=== PATIENT | female | born 1930 | race Hispanic/Latino ===

== ENCOUNTER 2016-07-28 19:17 | Inpatient (IN) | payer MEDICARE, OTHER ==
[2016-07-28 19:26] VITALS: BMI 30.9
[2016-07-28] MEDS ORDERED: Albuterol-Ipratrop 3 mg / 0.5 (3 ml) UD ONE (19:28)
[2016-07-28] MEDS ORDERED: Albuterol-Ipratrop 3 mg / 0.5 (3 ml) UD IH STA (19:29)
[2016-07-28 19:38] LABS: ADD MANUAL DIFF? NO
[2016-07-28 19:47] LABS: BASO % 0.8 % (0.0-3.0); EOS # 0.1 (0.0-0.7); EOS % 0.7 % (1.5-5.0); GRAN # 9.48 (1.4-6.5); GRAN % 77.2 % (50.0-68.0); HEMATOCRIT 30.7 % (36.0-48.0); LYMPH # 1.7 (1.2-3.4); LYMPH % 13.4 % (22.0-35.0); MEAN CELL VOLUME 88.2 fL (80.0-105.0); MEAN CORPUSCULAR HEMOGLOBIN 27.6 pg (25.0-35.0); MEAN CORPUSCULAR HGB CONC 31.3 g/dl (31.0-37.0); MEAN PLATELET VOLUME 10.3 fl (7.0-11.0); MONO % 7.9 % (1.0-6.0); PLATELET COUNT 348 10^3/uL (120.0-450.0); RED CELL DISTRIBUTION WIDTH 18.2 % (11.5-14.5); WHITE BLOOD COUNT 12.3 10^3/ul (4.5-11.0)
[2016-07-28] MEDS ORDERED: Morphine 2 mg/ml ISec IVP STA (19:53)
--- NOTE | 2016-07-28 19:56 | ED PDOC ---
Arrival/HPI - General Chief Complaint: Shortness Of Breath Time Seen by Provider: 07/28/16 19:18 Historian: Patient - History of Present Illness Narrative History of Present Illness (Text): 07/28/16 19:50 Gama Knutson is an 85 year old female, whose past medical history includes chronic atrial fibrillation on Eliquis, hypertension, hyperlipidemia, CVA, and COPD, who presents to the Emergency department complaining of progressively worsening shortness of breath and swelling to bilateral lower extremities with redness for about one week. Patient states that she also experiences associated wheezing. Patient denies any fever, chills, chest pain, nausea, vomiting, diarrhea, urinary symptoms, back pain, neck pain, headache, dizziness, or any other complaints. PMD: None Time/Duration: 1 week Symptom Onset: Gradual Symptom Course: Worsening Severity Level: Mild Activities at Onset: Rest Context: Home Past Medical History - Provider Review Nursing Documentation Reviewed: Yes - Infectious Disease Hx of Infectious Diseases: None - Tetanus Immunization Tetanus Immunization: Unknown - Cardiac Hx Cardiac Disorders: Yes Hx Hypertension: Yes - Pulmonary Hx Chronic Obstructive Pulmonary Disease (COPD): Yes - Neurological HX Cerebrovascular Accident: Yes - HEENT Hx HEENT Disorder: No - Renal Hx Renal Disorder: No - Endocrine/Metabolic Hx Diabetes Mellitus Type 2: (patient denies) - Hematological/Oncological Hx Blood Disorders: Yes Hx AIDS: No Hx Anemia: Yes - Integumentary Hx Dermatological Disorder: No - Musculoskeletal/Rheumatological Hx Falls: Yes - Gastrointestinal Hx Gastrointestinal Disorders: No - Genitourinary/Gynecological Hx Genitourinary Disorders: Yes Hx Urinary Tract Infection: Yes - Psychiatric Hx Psychophysiologic Disorder: Yes Hx Anxiety: Yes Hx Substance Use: No - Past Surgical History Past Surgical History: Non-Contributing - Surgical History Hx Joint Replacement: Yes (right hip) - Anesthesia Hx Anesthesia: Yes Hx Anesthesia Reactions: No Hx Malignant Hyperthermia: No - Suicidal Assessment Feels Threatened In Home Enviroment: No Family/Social History - Physician Review Nursing Documentation Reviewed: Yes Family/Social History: No Known Family HX Smoking Status: Former Smoker Hx Alcohol Use: No Hx Substance Use: No Hx Substance Use Treatment: No Allergies/Home Meds Allergies/Adverse Reactions: Allergies No Known Allergies Allergy (Verified 07/28/16 19:26) Home Medications: Home Meds Medication Instructions Recorded Confirmed Apixaban [Eliquis] 2.5 mg PO DAILY 06/15/16 07/28/16 Fluticasone/Salmeterol 250/50 1 puff IH Q12 06/15/16 07/28/16 [Advair Diskus 250/50] Umeclidinium Brm/Vilanterol Tr 1 each IH DAILY 06/15/16 07/28/16 [Anoro Ellipta 62.5-25 Mcg INH] diltiaZEM CD [Cardizem CD] 180 mg PO DAILY 06/15/16 07/28/16 Review of Systems - Physician Review All systems were reviewed & negative as marked: Yes - Review of Systems Constitutional: absent: Fevers, Night Sweats Eyes: absent: Vision Changes ENT: absent: Hearing Changes Respiratory: SOB Cardiovascular: absent: Chest Pain Gastrointestinal: absent: Abdominal Pain Genitourinary Female: absent: Urine Output Changes Musculoskeletal: Other (redness and swelling to bilateral legs and feet). absent: Back Pain, Neck Pain Skin: absent: Rash Neurological: absent: Headache Endocrine: absent: Diaphoresis Hemo/Lymphatic: absent: Easy Bleeding Psychiatric: absent: Depression Physical Exam Vital Signs Reviewed: Yes Vital Signs Temp Pulse Resp BP Pulse Ox 07/28/16 21:11 111/76 07/28/16 19:30 20 97 07/28/16 19:26 98.7 F 93 H 32 H 140/75 98 Temperature: Afebrile Pulse: Tachycardic Respiratory Rate: Tachypneic Appearance: Positive for: Well-Appearing, Non-Toxic, Comfortable Pain Distress: None Mental Status: Positive for: Alert and Oriented X 3 - Systems Exam Head: Present: Atraumatic, Normocephalic Pupils: Present: PERRL Extroacular Muscles: Present: EOMI Conjunctiva: Present: Normal Mouth: Present: Moist Mucous Membranes Neck: Present: Normal Range of Motion Respiratory/Chest: Present: Wheezes (to bilateral bases), Rales (to bilateral bases) Cardiovascular: Present: Irregular Rhythm (A Fib - irregular regular) Abdomen: Present: Normal Bowel Sounds. No: Tenderness, Distention, Peritoneal Signs Back: Present: Normal Inspection Upper Extremity: Present: Normal Inspection. No: Cyanosis, Edema Lower Extremity: Present: Swelling, Erythema (Bilateral swelling to lower extermities with erythema ) Neurological: Present: GCS=15, CN II-XII Intact, Speech Normal Skin: Present: Warm, Dry, Normal Color. No: Rashes Psychiatric: Present: Alert, Oriented x 3, Normal Insight, Normal Concentration Medical Decision Making ED Course and Treatment: 07/28/16 20:01 Impression: 85 year old female complaining of worsening shortness of breath and swelling to bilateral lower extremities with erythema for about one week Plan: -- EKG -- Chest X-ray -- VBG, Blood Culture -- Urinalysis, Urine Culture -- Labs -- Duoneb, Morphine -- Reassess and disposition Prior Visits: Notes and results from previous visits were reviewed. Patient last seen in the ED on 06/15/16 for progressively worsening shortness of breath for one day. Patient was admitted to hospitalist care for further evaluation. Progress Notes: Reviewed EKG, a fib at 99 bpm. Non-specific ST/T wave changes. 07/28/16 20:15 Reviewed radiology, Chest X-ray shows mild CHF. 07/28/16 20:[address] Ruiz, covering for Dr. Xavier, who is aware and agrees with plan. Pt will be admitted to Telemetry for CHF and bilateral lower extremity cellulitis. - Lab Interpretations Lab Results: 07/28/16 19:35 07/28/16 19:35 Lab Results 07/28/16 19:35: WBC 12.3 H, RBC 3.48 L, Hgb 9.6 L, Hct 30.7 L, MCV 88.2, MCH 27.6, MCHC 31.3, RDW 18.2 H, Plt Count 348, MPV 10.3, Gran % 77.2 H, Lymph % ( Auto) 13.4 L, [place] % (Auto) 7.9 H, Eos % (Auto) 0.7 L, Baso % (Auto) 0.8, Gran # 9.48 H, Lymph # 1.7, [place] # 1.0 H, Eos # 0.1, Baso # 0.10, PT 12.4 H, INR 1.15 H, APTT 24.3, pO2 50, VBG pH 7.37, VBG pCO2 45.0, VBG HCO3 26.0, VBG Total CO2 27.4, VBG O2 Sat (Calc) 83.2 H, VBG Base Excess 0.3, VBG Potassium 3.5 L, Glucose 120 H, Lactate 2.0, FiO2 21.0, Sodium 140.0, Potassium 3.5 L, Chloride 111.0 H, Carbon Dioxide 25, Anion Gap 16, BUN 32 H, Creatinine 1.1, Est GFR ( Amer) 57, Est GFR (Non-Af Amer) 47, Random Glucose 111 H, Calcium 8.6, Total Bilirubin 1.3, AST 52 H, ALT 71 H, Alkaline Phosphatase 157 H, Lactate Dehydrogenase 796 H, Total Creatine Kinase 128, Troponin I < 0.01, NT-Pro-B Natriuret Pep 3630 H, Total Protein 6.9, Albumin 3.5, Globulin 3.4, Albumin/ Globulin Ratio 1.0 L, Venous Blood Potassium 3.5 L I have reviewed the lab results: Yes - RAD Interpretation Radiology Orders: 07/28/16 19:30 CHEST PORTABLE [RAD] Stat Optical Fabricator: ED Physician - EKG Interpretation Interpreted by ED Physician: Yes Type: 12 lead EKG - Medication Orders Current Medication Orders: Acetaminophen (Tylenol 325mg Tab) 650 mg PO Q6H PRN PRN Reason: Fever >100.4 F Apixaban (Eliquis) 2.5 mg PO DAILY TARSHA PRN Reason: Protocol Aspirin (Aspirin Chewable) 81 mg PO DAILY TARSHA Diltiazem HCl (Cardizem Cd) 180 mg PO DAILY TARSHA Furosemide (Lasix) 40 mg IVP DAILY TARSHA Ceftriaxone Sodium (Rocephin 1 Gram Ivpb) 100 mls @ 100 mls/hr IVPB DAILY TARSHA PRN Reason: Protocol Levalbuterol HCl (Xopenex) 1.25 mg IH [id number] PRN PRN Reason: Shortness of Breath Methylprednisolone (Solu-Medrol) 20 mg IV Q12 TARSHA Last Admin: 07/28/16 23:34 Dose: 20 MG eMAR Start Stop Document 07/28/16 23:34 PCU (Rec: 07/28/16 23:35 PCU [id number]) Intravenous Solution Start Date 07/28/16 Start Time 23:34 End Date 07/28/16 End time 23:25 Total Infusion Time -9 Pantoprazole Sodium (Protonix Ec Tab) 40 mg PO 0630 TARSHA Potassium Chloride (K-Dur 20 Meq Er Tab) 20 meq PO BRK TARSHA Discontinued Medications Albuterol/Ipratropium (Duoneb 3 Mg/0.5 Mg (3 Ml) Ud) Confirm Administered Dose 3 ml .ROUTE .STK-MED ONE Stop: 07/28/16 19:29 Last Admin: 07/28/16 19:47 Dose: Albuterol/Ipratropium (Duoneb 3 Mg/0.5 Mg (3 Ml) Ud) 3 ml IH STAT STA Stop: 07/28/16 19:30 Last Admin: 07/28/16 19:44 Dose: 3 ML Albuterol/Ipratropium (Duoneb 3 Mg/0.5 Mg (3 Ml) Ud) 3 ml IH Q4H PRN PRN Reason: Wheezing Stop: 07/29/16 01:42 Last Admin: 07/29/16 00:49 Dose: 3 ML Furosemide (Lasix) 20 mg IVP ONCE ONE Stop: 07/28/16 20:25 Last Admin: 07/28/16 21:11 Dose: 20 MG MAR Blood Pressure Document 07/28/16 21:11 EQ (Rec: 07/28/16 21:11 [place] [facility] [id number] Blood Pressure Blood Pressure (100/60-150/90) 111/76 IVP Administration Document 07/28/16 21:11 EQ (Rec: 07/28/16 21:11 EQ [facility] [id number] Charges for Administration # of IVP Administrations 1 Piperacillin Sod/Tazobactam Sod (Zosyn 2.25 Gm In 0.9% 100 Ml) 100 mls @ 100 mls/hr IVPB STAT STA PRN Reason: Protocol Stop: 07/28/16 22:39 Last Admin: 07/28/16 22:11 Dose: 100 MLS/HR eMAR Start Stop Document 07/28/16 22:11 EQ (Rec: 07/28/16 22:11 EQ [facility] [id number] Intravenous Solution Start Date 07/28/16 Start Time 22:11 Vancomycin HCl (Vancomycin 1gm) 250 mls @ 167 mls/hr IVPB STAT STA PRN Reason: Protocol Stop: 07/28/16 23:09 Last Admin: 07/28/16 23:35 Dose: 167 MLS/HR eMAR Start Stop Document 07/28/16 23:35 PCU (Rec: 07/28/16 23:36 PCU [id number]) Intravenous Solution Start Date 07/28/16 Start Time 23:36 End Date 07/29/16 End time 01:36 Total Infusion Time 120 Morphine Sulfate (Morphine) 2 mg IVP STAT STA Stop: 07/28/16 19:54 Last Admin: 07/28/16 20:05 Dose: 2 MG MAR Pain Assessment Document 07/28/16 20:05 EQ (Rec: 07/28/16 20:05 EQ [facility] [id number] Pain Reassessment Is this a pain reassessment? Yes IVP Administration Document 07/28/16 20:05 EQ (Rec: 07/28/16 20:05 EQ [facility] [id number] Charges for Administration # of IVP Administrations 1 - Scribe Statement The provider has reviewed the documentation as recorded by the Dollyibduane Acosta Provider Scribe Attestation: All medical record entries made by the Scribe were at my direction and personally dictated by me. I have reviewed the chart and agree that the record accurately reflects my personal performance of the history, physical exam, medical decision making, and the department course for this patient. I have also personally directed, reviewed, and agree with the discharge instructions and disposition. Disposition/Present on Arrival - Present on Arrival Any Indicators Present on Arrival: No History of DVT/PE: No History of Uncontrolled Diabetes: No Urinary Catheter: No History of Decub. Ulcer: No History Surgical Site Infection Following: None - Disposition Have Diagnosis and Disposition been Completed?: Yes Diagnosis: Congestive heart failure, Atrial fibrillation, Bilateral cellulitis of lower leg Disposition: HOME/ ROUTINE Disposition Time: 20:45 Patient Problems: Current Active Problems Problem Status Diagnosed CVA (cerebrovascular accident) Acute Abdominal pain Acute Acute pancreatitis Acute Gross hematuria Acute Leukocytosis Acute Pneumonia Acute Condition: GOOD
[2016-07-28 19:57] LABS: VENOUS BLOOD GAS BASE EXCESS 0.3 mmol/L (0.0-2.0); VENOUS BLOOD PH 7.37 (7.32-7.43)
[2016-07-28 20:00] LABS: INR 1.15 (0.93-1.08); PARTIAL THROMBOPLASTIN TIME 24.3 Seconds (23.7-30.8)
[2016-07-28 20:09] LABS: ALKALINE PHOSPHATASE 157 U/L (38-133); ALT/SGPT 71 U/L (7-56); AST/SGOT 52 U/L (15-39); BILIRUBIN,TOTAL 1.3 mg/dL (0.2-1.3); BLOOD UREA NITROGEN 32 mg/dL (7-21); CALCIUM 8.6 mg/dL (8.4-10.5); CARBON DIOXIDE 25 mmol/L (21-33); CHLORIDE 103 mmol/L (98-107); GFR AFRICAN-AMERICAN 57; GLUCOSE,RANDOM 111 mg/dL (70-110); POTASSIUM 3.5 mmol/L (3.6-5.0); SODIUM 140 mmol/L (132-148); TOTAL PROTEIN 6.9 g/dL (5.8-8.3)
[2016-07-28 20:22] LABS: TROPONIN I < 0.01 ng/mL
[2016-07-28] MEDS ORDERED: Piperacillin/Tazobact 2.25gm 100 ML IVPB STA (21:40)
[2016-07-28] MEDS ORDERED: Vancomycin 1gm in NS 250ml 250 ML IVPB STA (21:40)
[2016-07-28] MEDS ORDERED: Albuterol-Ipratrop 3 mg / 0.5 (3 ml) UD IH PRN (21:41)
[2016-07-28] MEDS ORDERED: Levalbuterol 1.25 MG/3 ML Inhal Soln UD IH PRN (22:02)
[2016-07-28 22:39] LABS: PH,URINE 5.5 (4.7-8.0); URINE BILIRUBIN NEGATIVE (NEGATIVE); URINE BLOOD MODERATE (NEGATIVE); URINE GLUCOSE (UA) NEGATIVE (NEGATIVE); URINE KETONE NEGATIVE (NEGATIVE); URINE LEUKOCYTE ESTERASE SMALL Leu/uL (NEGATIVE); URINE PROTEIN NEGATIVE mg/dL (<30 mg/dL); URINE UROBILINOGEN 0.2 E.U./dL (<1 E.U./dL)
[2016-07-28 22:40] LABS: URINE APPEARANCE CLEAR (CLEAR); URINE COLOR YELLOW (YELLOW)
[2016-07-28 22:49] LABS: URINE RBC 20 - 25 /hpf (0-2)
[2016-07-28 22:50] LABS: URINE BACTERIA MANY (NEG)
[2016-07-28 22:51] LABS: URINE AMORPHOUS SEDIMENT TRACE
--- NOTE | 2016-07-28 22:53 | HP ---
The patient is an 85-year-old known to me from multiple previous admissions. Came to Emergency Room because of increasing leg swelling and increasing shortness of breath. She did not have any fever or chills. Does not have nausea, vomiting, diarrhea, hemoptysis, hematemesis. No complaint of chest p ain. No abdominal pain, , no dizziness. PAST MEDICAL HISTORY: Significant for: 1. Hypertension. 2. Morbid obesity. 3. Chronic AFib. 4. Hyperlipidemia. 5. History of COPD. 6. History of CVA in the past. ALLERGIES: She is not allergic to any medications. MEDICATIONS AT HOME: She is on Eliquis 2.5 twice a day, Advair 250/50 one puff twice a day, and diltiazem CD 150 mg daily. She is on Anoro Ellipta at home. SOCIAL HISTORY: The patient was a heavy smoker in the past. Denies smoking now. No alcohol use. REVIEW OF SYSTEMS: Significant for increasing shortness of breath, leg swelling, and generalized wea kness. On examination she is awake and alert, communicative. VITAL SIGNS: She is afebrile, pulse 93, respirations 32, blood pressure 140/75. LUNGS: Bilateral fair airflow. No rhonchi or crackle anteriorly. However, posteriorly she says sof t crackle at bases, and bilateral rhonchi. HEART: S1, S2 audible. Regular rate control. ABDOMEN: Soft, nontender, no rebound, no guarding. NEUROLOGICALLY: She is awake and alert, communicative. LABORATORY EXAMINATION: WBC 12.3, hemoglobin 9.6, hematocrit 30.7, platelets 348. PT 12.4, INR 1.15 . Chemistry: Sodium 140, potassium 3.5, chloride 103, CO2 of 25, BUN 32, creatinine 1.1, blood suga r 111, total bili 1.3. AST 52, ALT 71, alk phos of 157. LDH is 796, CPK is 128. Troponin 0.01. BN P 3630. X-ray of chest shows venous congestion. ASSESSMENT: 1. Chronic obstructive pulmonary disease exacerbation. 2. Congestive heart failure, acute on chronic, systolic. 3. Chronic atrial fibrillation. 4. Hypertension. 5. Hyperlipidemia. PLAN: The patient will be admitted on telemetry. Will start IV steroids, nebulizer treatment, start her on her usual medications including diltiazem CD, Eliquis. Start on IV diuretic. Monitor blood sugar. Monitor electrolytes in a.m. Will follow up troponin. She has been started on Rocephin and PPI, and will evaluate this patient in a.m. Venessa Ruiz MD cc: [phone] TT: 07/28/2016 22:52:38 jn
[2016-07-28 23:10] LABS: VENOUS BLOOD GAS BASE EXCESS -0.8 mmol/L (0.0-2.0); VENOUS BLOOD PH 7.34 (7.32-7.43)
[2016-07-28 23:18] LABS: CHOLESTEROL 95 mg/dL (130-200)
[2016-07-28 23:30] LABS: TROPONIN I < 0.01 ng/mL
[2016-07-28] MEDS: MethylPREDNISolone 40 mg Vial IV SCH (23:34)
[2016-07-29] MEDS: Pantoprazole 40 mg EC Tab PO SCH (06:36)
[2016-07-29 07:22] LABS: HEMATOCRIT 28.7 % (36.0-48.0); MEAN CELL VOLUME 87.8 fL (80.0-105.0); MEAN CORPUSCULAR HEMOGLOBIN 27.8 pg (25.0-35.0); MEAN CORPUSCULAR HGB CONC 31.7 g/dl (31.0-37.0); MEAN PLATELET VOLUME 10.9 fl (7.0-11.0); PLATELET COUNT 318 10^3/uL (120.0-450.0); RED CELL DISTRIBUTION WIDTH 18.2 % (11.5-14.5); WHITE BLOOD COUNT 10.2 10^3/ul (4.5-11.0)
[2016-07-29 07:24] LABS: ALKALINE PHOSPHATASE 139 U/L (38-133); ALT/SGPT 65 U/L (7-56); AST/SGOT 32 U/L (15-39); BLOOD UREA NITROGEN 31 mg/dL (7-21); CALCIUM 8.1 mg/dL (8.4-10.5); CARBON DIOXIDE 22 mmol/L (21-33); CHLORIDE 104 mmol/L (95-110); GFR AFRICAN-AMERICAN > 60; GLUCOSE,RANDOM 154 mg/dL (70-110); MAGNESIUM 1.7 mg/dL (1.7-2.2); PHOSPHOROUS 4.2 mg/dL (2.5-4.5); POTASSIUM 3.7 mmol/L (3.6-5.0); SODIUM 137 mmol/L (132-148); TOTAL PROTEIN 6.3 g/dL (5.8-8.3)
[2016-07-29 07:50] LABS: ADD MANUAL DIFF? YES
[2016-07-29] MEDS ORDERED: Potassium Chloride 20 mEq ER Tab PO SCH (08:00)
[2016-07-29 08:41] LABS: FREE T4 1.44 ng/dL (0.78-2.19)
[2016-07-29 08:50] LABS: NEUTROPHIL 98 % (50.0-70.0)
[2016-07-29 08:54] LABS: THYROID STIMULATING HORMONE 2.91 mIU/mL (0.46-4.68)
[2016-07-29] MEDS: diltiaZEM 180 mg/24 Hours CD Cap PO SCH (09:41)
[2016-07-29] MEDS: cefTRIAXone 1 gm 100 ML IVPB SCH (09:42)
[2016-07-29] MEDS: MethylPREDNISolone 40 mg Vial IV SCH ×2 (09:43→22:01)
--- NOTE | 2016-07-29 09:55 | CARD ---
APPROVED REPORT EKG Measurement Heart [id number] <Conclusion> Atrial fibrillation PVC NSSTW changes No change
--- NOTE | 2016-07-29 10:26 | RAD ---
HISTORY: sob COMPARISON: Comparison chest 07/28/2016 FINDINGS: LUNGS: Persistent elevation right hemidiaphragm likely due to eventration with suspected minor compressive type atelectasis right lung base. There may also be minimal left basilar atelectasis. The interstitial markings are also somewhat increased and coarsened in appearance nonspecific. Rule out sequela of reactive/inflammatory airway disease or possibly mild pulmonary vascular congestion. PLEURA: No significant pleural effusion identified, no pneumothorax apparent. CARDIOVASCULAR: Heart remains enlarged. OSSEOUS STRUCTURES: No significant abnormalities. VISUALIZED UPPER ABDOMEN: Normal. OTHER FINDINGS: None. IMPRESSION: Persistent elevation right hemidiaphragm likely due to eventration with suspected minor compressive type atelectasis right lung base. There may also be minimal left basilar atelectasis. The interstitial markings are also somewhat increased and coarsened in appearance nonspecific. Rule out sequela of reactive/inflammatory airway disease or possibly mild pulmonary vascular congestion.
--- NOTE | 2016-07-29 11:01 | PN ---
DATE: 07/29/2016 SUBJECTIVE: The patient is 85 years old, seen and examined, seems to be short of breath. Anxious. No chest pain, but has shortness of breath. PHYSICAL EXAMINATION: VITAL SIGNS: She is afebrile, pulse 110, respirations 20, blood pressure 134/90. LUNGS: Bilateral fair airflow. No rhonchi or crackle. HEART: S1, S2 audible. ABDOMEN: Soft, nontender. No rebound, no guarding. NEUROLOGIC: She is awake and alert, able to communicate, answers simple questions. LABORATORY EXAMINATION: WBC is 10.2, hemoglobin 9.1, hematocrit 28.7, platelets 318. Chemistry: So dium 137, potassium 3.7, chloride 104, CO2 of 22, BUN 31, creatinine 1.0, blood sugar of 154, calcium 8.1. Her ALT is 65. Alk phos is 139. Urinalysis is unremarkable. ASSESSMENT AND PLAN: 1. Shortness of breath, probably underlying chronic obstructive pulmonary disease. 2. Atrial fibrillation and hypertension. 3. Congestive heart failure. 4. Chronic obstructive pulmonary disease. 5. Chronic atrial fibrillation. 6. History of cerebrovascular accident in the past. PLAN: We will continue the patient on aspirin. She is on diltiazem. Will continue that. She is ge tting nebulizer treatment. She is on Eliquis. Potassium is being supplemented. We will keep her on IV Lasix and Protonix. She is getting Rocephin and prednisone. I will order for CT of the chest to rule out infiltrate. Since her shortness of breath is out of proportion, I will order for CT of the chest, and cardiology evaluation by Dr. Lan has been requested. Venessa Ruiz MD cc: [phone] TT: 07/29/2016 11:00:30 Confirmation # [id number] Dictation # [id number] pa
--- NOTE | 2016-07-29 11:50 | CP.PCM.PN ---
Subjective - Date & Time of Evaluation Date of Evaluation: 07/29/16 Time of Evaluation: 11:44 - Subjective Subjective: called by nurse pt is sob.pt has hx of copd and chf on xopenex prn. pt is in moderate respiratory distress . pulse ox is 95.hr 104 . Objective - Vital Signs/Intake and Output Vital Signs (last 24 hours): Temp Pulse Resp BP Pulse Ox 97.7 F 110 H 20 134/90 98 07/29/16 06:00 07/29/16 09:41 07/29/16 06:00 07/29/16 09:42 07/29/16 06:00 Intake and Output: 07/29/16 07/29/16 06:59 18:59 Intake Total 240 Balance 240 - Medications Medications: Current Medications Acetaminophen (Tylenol 325mg Tab) 650 mg PO Q6H PRN PRN Reason: Fever >100.4 F Apixaban (Eliquis) 2.5 mg PO DAILY TARSHA PRN Reason: Protocol Last Admin: 07/29/16 09:42 Dose: 2.5 mg Aspirin (Aspirin Chewable) 81 mg PO DAILY [facility] Last Admin: 07/29/16 09:41 Dose: 81 mg Diltiazem HCl (Cardizem Cd) 180 mg PO DAILY [facility] Last Admin: 07/29/16 09:41 Dose: 180 mg Furosemide (Lasix) 40 mg IVP DAILY [facility] Last Admin: 07/29/16 09:42 Dose: 40 mg Ceftriaxone Sodium (Rocephin 1 Gram Ivpb) 100 mls @ 100 mls/hr IVPB DAILY TARSHA PRN Reason: Protocol Last Admin: 07/29/16 09:42 Dose: 100 mls/hr Levalbuterol HCl (Xopenex) 1.25 mg IH [id number] PRN PRN Reason: Shortness of Breath Last Admin: 07/29/16 11:30 Dose: 1.25 mg Methylprednisolone (Solu-Medrol) 20 mg IV Q12 [facility] Last Admin: 07/29/16 09:43 Dose: 20 mg Pantoprazole Sodium (Protonix Ec Tab) 40 mg PO 0630 [facility] Last Admin: 07/29/16 06:36 Dose: 40 mg Potassium Chloride (K-Dur 20 Meq Er Tab) 20 meq PO BRK [facility] Last Admin: 07/29/16 09:42 Dose: 20 meq - Labs Labs: 07/29/16 06:57 07/29/16 06:57 PT 12.4 Seconds (9.9-11.8) H 07/28/16 19:35 INR 1.15 (0.93-1.08) H 07/28/16 19:35 APTT 24.3 Seconds (23.7-30.8) 07/28/16 19:35 - Constitutional Appears: In Acute Distress - Head Exam Head Exam: NORMOCEPHALIC - Eye Exam Eye Exam: Normal appearance Pupil Exam: PERRL - Neck Exam Neck Exam: Full ROM - Respiratory Exam Additional comments: pt has decreased breath sounds in rt lung region. - Cardiovascular Exam Cardiovascular Exam: RRR, +S1, +S2 - GI/Abdominal Exam GI & Abdominal Exam: Soft, Normal Bowel Sounds - Rectal Exam Rectal Exam: Deferred - Extremities Exam Extremities Exam: Full ROM - Neurological Exam Neurological Exam: Alert, CN II-XII Intact, Oriented x3 - Psychiatric Exam Psychiatric exam: Anxious - Skin Skin Exam: Dry, Warm Assessment and Plan - Assessment and Plan (Free Text) Assessment: acute exacerbation of copd . Plan: xopenex nebs treatment stat. chest xray stat. pt improved after nebs treatment. will change the xopenex from prn to schedual.
--- NOTE | 2016-07-29 12:36 | RAD ---
PROCEDURE: CHEST RADIOGRAPH, 1 VIEW HISTORY: Shortness of breath COMPARISON: Comparison made with prior chest radiograph 07/28/2016 FINDINGS: LUNGS: Re- demonstrated is marked elevation right hemidiaphragm which has likely due to eventration. Apparent slight progression of atelectasis right lung base. The interstitial markings are increased and coarsened which could represent mild chronic compensated pulmonary edema/ CHF versus sequela of reactive/inflammatory airway disease. Clinical correlation recommended. Questionable right-sided small effusion. PLEURA: As above CARDIOVASCULAR: Heart size difficult to assess due to silhouetting left cardiac border OSSEOUS STRUCTURES: No significant abnormalities. VISUALIZED UPPER ABDOMEN: Normal. OTHER FINDINGS: None. IMPRESSION: Re- demonstrated is marked elevation right hemidiaphragm which has likely due to eventration. Apparent slight progression of atelectasis right lung base. The interstitial markings are increased and coarsened which could represent mild chronic compensated pulmonary edema/ CHF versus sequela of reactive/inflammatory airway disease. Clinical correlation recommended. Questionable right-sided small effusion.
[2016-07-29] MEDS: Levalbuterol 1.25 MG/3 ML Inhal Soln UD IH SCH ×3 (13:48→20:50)
[2016-07-29] MEDS: Potassium Chloride 20 mEq ER Tab PO SCH (15:00)
--- NOTE | 2016-07-29 18:24 | CON ---
DATE: 07/29/2016 REASON FOR CONSULTATION: Shortness of breath and chronic atrial fibrillation. HISTORY OF PRESENT ILLNESS: The patient is an 85-year-old white female who has a history of chronic atrial fibrillation on Eliquis, history of hypertension, hyperlipidemia, COPD and a history of CVA. The patient has mentioned to me that she had nasal O2 at home. She presented because of shortness of breath, cough and worsening of her lower extremity swelling. The patient did report wheezing. She denies any fever or chills. SOCIAL HISTORY: The patient states to me that she is a nonsmoker. MEDICATIONS: Aspirin 81 mg once a day, Cardizem-CD 180 mg once daily, Eliquis 2.5 mg once a day, K-D ur 20 mEq once a day, Lasix 40 mg intravenous once a day, Rocephin 1 gram intravenously daily, Solu-M edrol 20 mg intravenously q.12 hours, Xopenex inhaler q.6 hours. REVIEW OF SYSTEMS: No fever or chills. No vomiting or diarrhea. No syncope and no retrosternal nati st pain. PHYSICAL EXAMINATION: GENERAL: The patient is an elderly female who is mildly tachypneic, but does not appear to be in acu te distress. VITAL SIGNS: Blood pressure 157/74, heart rate 120, temperature 97.4, respiration 22. HEENT: Pale conjunctivae. NECK: Jugular venous distention is noted. CHEST: Diffuse bilateral rhonchi. HEART: S1, S2 irregular. ABDOMEN: Soft. EXTREMITIES: 2+ pitting edema. LABORATORY DATA: Hemoglobin and hematocrit 9.1 and 28.7. White count and platelet count are within normal limits. SMA-7 is within normal limits except for glucose of 154 and BUN of 31. Two sets of t roponins are negative. ProBNP is 3630. INR is 1.1, PTT 24.3. EKG revealed atrial fibrillation at t he rate of 99, PVCs versus aberrancy and nonspecific ST-T wave changes. Chest x-ray revealed right l ower lobe infiltrate and prominent bronchovascular markings. Echocardiographic study performed in [facility] of this year revealed a normal ejection fraction, severe mitral insufficiency and tricuspid ins ufficiencies. A Lexiscan was performed in 09/2014 and was a negative study. ASSESSMENT: 1. Exacerbation of chronic obstructive lung disease. 2. Chronic atrial fibrillation. 3. Consider congestive heart failure. 4. Right-sided heart failure. 5. Rule out deep venous thrombosis of either lower extremity. RECOMMENDATIONS: Continue current aspirin 81 mg once a day, Cardizem-CD at 180 mg once a day, Eliqui s at 2.5 mg once a day, K-Dur 20 mEq once a day, Solu-Medrol 20 mg intravenously twice a day, Xopenex inhaler q.6 hours p.r.n. Start Lasix at 40 mg intravenously once a day and K-Dur at 20 mEq once a d ay. Obtain a venous Doppler of the lower extremities. Pedro Kulkarni MD cc: [id number] TT: 07/29/2016 18:24:14 Confirmation # [id number] Dictation # [id number] dn
[2016-07-29] MEDS ORDERED: TraMADol/Apap 37.5/325 mg Tab PO PRN (18:41)
[2016-07-29] MEDS ORDERED: Oxycodone/Acetaminophen 10/325 mg Tab PO STA (22:12)
[2016-07-30] MEDS: Levalbuterol 1.25 MG/3 ML Inhal Soln UD IH SCH ×5 (02:30→20:33)
--- NOTE | 2016-07-30 03:32 | CP.PCM.PN ---
Subjective - Date & Time of Evaluation Date of Evaluation: 07/29/16 Time of Evaluation: 22:10 - Subjective Subjective: Patient was seen at bedside because she complained of pains in both knees.States that pain medication that she received has not been helping her.Has no other complaints now. Denies chest pain, sob. Medical record was reviewed. This 85 years old woman was admitted with increasing leg swelling and sob/COPD exacerbation. Has PMH of Atrial fibrillation, HTN, morbid obesity, HLD, COPD,CVA. Objective - Vital Signs/Intake and Output Vital Signs (last 24 hours): Temp Pulse Resp BP Pulse Ox 97.4 F L 134 H 22 157/74 H 98 07/29/16 12:00 07/29/16 18:00 07/29/16 12:00 07/29/16 14:22 07/29/16 06:00 Intake and Output: 07/29/16 07/30/16 18:59 06:59 Intake Total 1080 Output Total 3 Balance 1077 - Medications Medications: Current Medications Acetaminophen (Tylenol 325mg Tab) 650 mg PO Q6H PRN PRN Reason: Fever >100.4 F Last Admin: 07/29/16 12:39 Dose: 650 mg Apixaban (Eliquis) 2.5 mg PO DAILY [facility] PRN Reason: Protocol Last Admin: 07/29/16 09:42 Dose: 2.5 mg Aspirin (Aspirin Chewable) 81 mg PO DAILY [facility] Last Admin: 07/29/16 09:41 Dose: 81 mg Diltiazem HCl (Cardizem Cd) 180 mg PO DAILY [facility] Last Admin: 07/29/16 09:41 Dose: 180 mg Furosemide (Lasix) 40 mg IVP DAILY [facility] Last Admin: 07/29/16 14:22 Dose: 40 mg Ceftriaxone Sodium (Rocephin 1 Gram Ivpb) 100 mls @ 100 mls/hr IVPB DAILY [facility] PRN Reason: Protocol Last Admin: 07/29/16 09:42 Dose: 100 mls/hr Levalbuterol HCl (Xopenex) 1.25 mg IH [id number] [facility] Last Admin: 07/29/16 20:50 Dose: Not Given Methylprednisolone (Solu-Medrol) 20 mg IV Q12 [facility] Last Admin: 07/29/16 22:01 Dose: 20 mg Pantoprazole Sodium (Protonix Ec Tab) 40 mg PO 0630 [facility] Last Admin: 07/29/16 06:36 Dose: 40 mg Potassium Chloride (K-Dur 20 Meq Er Tab) 20 meq PO BRK [facility] Last Admin: 07/29/16 15:00 Dose: 20 meq Tramadol/Acetaminophen (Ultracet 37.5/325 Mg) 1 tab PO Q6H PRN PRN Reason: for leg pain Last Admin: 07/29/16 20:02 Dose: 1 tab - Labs Labs: 07/29/16 06:57 07/29/16 06:57 PT 12.4 Seconds (9.9-11.8) H 07/28/16 19:35 INR 1.15 (0.93-1.08) H 07/28/16 19:35 APTT 24.3 Seconds (23.7-30.8) 07/28/16 19:35 - Constitutional Appears: Well, No Acute Distress - Head Exam Head Exam: ATRAUMATIC, NORMAL INSPECTION, NORMOCEPHALIC - Eye Exam Eye Exam: Normal appearance - ENT Exam Additional comments: Hard of hearing. - Neck Exam Neck Exam: Normal Inspection - Respiratory Exam Respiratory Exam: NORMAL BREATHING PATTERN - Cardiovascular Exam Cardiovascular Exam: absent: JVD - GI/Abdominal Exam GI & Abdominal Exam: absent: Distended - Rectal Exam Rectal Exam: Deferred - Extremities Exam Extremities Exam: Normal Inspection - Back Exam Back Exam: NORMAL INSPECTION - Neurological Exam Neurological Exam: Alert, Oriented x3 - Psychiatric Exam Psychiatric exam: Normal Affect, Normal Mood - Skin Skin Exam: Normal Color Assessment and Plan - Assessment and Plan (Free Text) Assessment: A/P:B/L knees pain. COPD exacerbation. HTN. Obesity. HLD. Percocet 10/325 I PO now. Continue present management.
[2016-07-30] MEDS: Pantoprazole 40 mg EC Tab PO SCH (06:45)
[2016-07-30] MEDS: Potassium Chloride 20 mEq ER Tab PO SCH (08:26)
[2016-07-30] MEDS: diltiaZEM 180 mg/24 Hours CD Cap PO SCH (09:04)
[2016-07-30] MEDS: cefTRIAXone 1 gm 100 ML IVPB SCH (09:06)
[2016-07-30] MEDS: MethylPREDNISolone 40 mg Vial IV SCH ×2 (09:07→21:31)
[2016-07-30] MEDS ORDERED: Oxycodone/Acetaminophen 5/325 mg Tab PO PRN (09:53)
--- NOTE | 2016-07-30 09:59 | CT ---
PROCEDURE: CT Chest without contrast HISTORY: sob COMPARISON: None. TECHNIQUE: Contiguous axial images were obtained through the chest without intravenous contrast enhancement. Sagittal and coronal reconstructions were performed. Radiation dose (DLP): 972 mGy-cm. This CT exam was performed using one or more of the following dose reduction techniques: Automated exposure control, adjustment of the mA and/or kV according to patient size, and/or use of iterative reconstruction technique. FINDINGS: LUNGS: Ground-glass interstitial densities are seen in the upper lobes bilaterally. The findings are similar to the previous study. There is no focal alveolar consolidation MEDIASTINUM: Unremarkable thoracic aorta. No aneurysm. Normal sized heart. Main pulmonary artery unremarkable. No vascular congestion. No lymphadenopathy. PLEURA: There is a small to moderate right pleural effusion. BONES: No fracture. No destructive lesion. UPPER ABDOMEN: Grossly unremarkable. OTHER FINDINGS: None. IMPRESSION: Small to moderate size right pleural effusion. Chronic interstitial changes.
--- NOTE | 2016-07-30 11:11 | US ---
HISTORY: Leg pain and swelling. Evaluate for DVT PHYSICIAN(S): Leonel Trinh MD. TECHNIQUE: Duplex sonography and color-flow Doppler with graded compression were used to evaluate the deep venous systems of both lower extremities. FINDINGS: The visualized deep venous systems of both lower extremities are sonographically normal and compressible. Normal wave forms and augmentation are seen. There is no sonographic evidence for deep venous thrombosis in the visualized segments of both lower extremities. IMPRESSION: No sonographic evidence for deep venous thrombosis in the visualized segments of both lower extremities.
[2016-07-30] MEDS: Azithromycin 500MG/NS 250ml 250 ML IVPB SCH (12:15)
--- NOTE | 2016-07-30 13:09 | PN ---
DATE: 07/30/2016 The patient is an 85-year-old, seen and examined. Shortness of breath seems to be much better. PHYSICAL EXAMINATION: VITAL SIGNS: She is afebrile, pulse , respirations 18, blood pressure 127/73. LUNGS: Bilateral fair airflow, few occasional expiratory rhonchi. She has diffusely decreased breat h sounds. HEART: S1, S2 audible. ABDOMEN: Soft, obese, nontender, no rebound, no guarding. NEUROLOGIC: She is awake and alert, able to communicate. LABORATORY EXAMINATION: Sodium 137, potassium 3.7, chloride 104, CO2 22, BUN 31, creatinine 1.0, blo od sugar of 157, calcium 8.1. Her AST 32, ALT 65, alkaline phosphatase is 139. ASSESSMENT: 1. Community-acquired pneumonia. 2. Chronic obstructive pulmonary disease exacerbation. 3. Congestive heart failure, acute on chronic. 4. Bilateral knee osteoarthritis. 5. Chronic atrial fibrillation. 6. History of cerebrovascular accident in the remote past. PLAN: Currently, patient is on aspirin 81 daily. She is on diltiazem. We will continue that. She is on Eliquis 2.5 daily. Started her on Rocephin, will add Zithromax and TCU evaluation has been req uested. If patient is accepted, she can be transferred to TCU for rehab and close monitoring of her chronic obstructive pulmonary disease and congestive heart failure exacerbation and to complete her c ourse of antibiotics. Venessa Ruiz MD cc: [phone] TT: 07/30/2016 13:08:37 Confirmation # [id number] Dictation # [id number] en
--- NOTE | 2016-07-30 15:41 | PN ---
DATE: 07/30/2016 The patient is in room 265, bed 2. REASON FOR CONSULTATION: Shortness of breath, atrial fibrillation. HISTORY OF PRESENT ILLNESS: The patient is an 85-year-old female who has a history of chronic atrial fibrillation on Eliquis, hypertension, hyperlipidemia, COPD, CVA, admitted with shortness of breath, cough and worsening swelling of the lower legs. The patient denied chest pain or palpitation. The patient's echo in 04/2016 showed normal ejection fraction, severe mitral regurgitation and tricuspid regurgitation. Lexiscan stress test in 09/2014 was also negative. The patient states that her shortn ess of breath is improving. PHYSICAL EXAMINATION: VITAL SIGNS: Blood pressure 127/73, respirations 18, pulse about 120 per minute, temperature 97. HEAD: Normocephalic. EYES: Pupils normal. Conjunctivae slightly pale. NECK: JVP low. Carotids equal. THORAX: AP diameter normal. LUNGS: Bilaterally expiratory wheezing. CARDIOVASCULAR: S1, S2. Irregular rhythm due to atrial fibrillation. ABDOMEN: Soft, nontender, no organomegaly. EXTREMITIES: No clubbing, no cyanosis. Edema of legs is decreasing. LABORATORY DATA: WBC 10.2, hemoglobin 9.1, hematocrit 28.7, platelets 318, sodium 137, potassium 3.7 , BUN 31, creatinine 1.0, random glucose 154. Calcium 8.1, phosphorous 4.2, magnesium 1.7, total pro tein 6.3, albumin 3.1. NT-proB natriuretic pep 3630. Troponin is negative. IMAGING: Chest x-ray shows right lung base atelectasis, bronchovascular markings increased. DIAGNOSES: Exacerbation of chronic obstructive lung disease, chronic atrial fibrillation this mornin g with rapid rate, mild bronchovascular markings. There is a question of mild congestive heart failu re, right-sided heart failure. PLAN: To continue aspirin 81 mg daily, diltiazem CD 180 p.o. daily, Eliquis 2.5 b.i.d., potassium 20 mEq p.o. daily, furosemide 40 mg IV daily, Protonix 40 daily, Rocephin 1 gram IV daily, Solu-Medrol 20 mg IV q. 12 hours. The patient is getting Xopenex hand nebulizer therapy since atrial fibrillatio n rate is rapid this morning, we will add atenolol 12.5 mg 1 dose today, to try to slow down the atri al fibrillation. We will follow with you. Amari Johnson MD cc: [phone] TT: 07/30/2016 15:40:52 Confirmation # [id number] Dictation # [id number] dn
[2016-07-31] MEDS: Levalbuterol 1.25 MG/3 ML Inhal Soln UD IH SCH ×5 (02:20→23:09)
[2016-07-31] MEDS: Pantoprazole 40 mg EC Tab PO SCH (05:37)
[2016-07-31 07:09] LABS: GRAN # 17.12 (1.4-6.5); GRAN % 93.8 % (50.0-68.0); HEMATOCRIT 32.3 % (36.0-48.0); LYMPH # 0.6 (1.2-3.4); LYMPH % 3.5 % (22.0-35.0); MEAN CORPUSCULAR HEMOGLOBIN 27.3 pg (25.0-35.0); MEAN CORPUSCULAR HGB CONC 30.7 g/dl (31.0-37.0); MEAN PLATELET VOLUME 11.1 fl (7.0-11.0); MONO # 0.5 (0.1-0.6); MONO % 2.7 % (1.0-6.0); PLATELET COUNT 369 10^3/uL (120.0-450.0); RED CELL DISTRIBUTION WIDTH 18.7 % (11.5-14.5); WHITE BLOOD COUNT 18.3 10^3/ul (4.5-11.0)
[2016-07-31 07:14] LABS: CALCIUM 8.4 mg/dL (8.4-10.5); POTASSIUM 4.9 mmol/L (3.6-5.0); TOTAL PROTEIN 6.5 g/dL (5.8-8.3)
[2016-07-31 07:16] LABS: ADD MANUAL DIFF? NO
[2016-07-31] MEDS ORDERED: Digoxin 500 mcg/2ml (0.5 mg/2ml) Inj IVP ONE (09:24)
[2016-07-31] MEDS: MethylPREDNISolone 40 mg Vial IV SCH (09:37)
[2016-07-31] MEDS: Potassium Chloride 20 mEq ER Tab PO SCH (09:38)
[2016-07-31] MEDS: diltiaZEM 180 mg/24 Hours CD Cap PO SCH (09:39)
[2016-07-31] MEDS: cefTRIAXone 1 gm 100 ML IVPB SCH (09:39)
[2016-07-31] MEDS: Azithromycin 500MG/NS 250ml 250 ML IVPB SCH (09:40)
[2016-07-31] MEDS: Levalbuterol 0.63 MG/3 ML Inhal Soln UD IH PRN ×2 (09:52→14:56)
[2016-07-31 09:56] VITALS: PULSE 108
[2016-07-31] MEDS ORDERED: MethylPREDNISolone 40 mg Vial ONE (10:10)
[2016-07-31] MEDS ORDERED: MethylPREDNISolone 40 mg Vial IVP ONE (10:13)
--- NOTE | 2016-07-31 10:22 | PN ---
DATE: 07/31/2016 REASON FOR CONSULTATION: Shortness of breath, atrial fibrillation, chronic, but AFib with rapid vent ricular rate. BRIEF CLINICAL HISTORY: An 85-year-old female with a past medical history significant for chronic at rial fibrillation on Eliquis, hypertension, hyperlipidemia, COPD, CVA. Admitted with shortness of br eath, cough and worsening swelling of the legs. The patient denies any chest pain, palpitations. Th e patient's echo 04/2016 shows normal ejection fraction, severe mitral regurgitation and tricuspid reg urgitation. The patient had a stress test in 09/2014 that was negative. The patient feels also that shortness of breath improved, but still wheezing and AFib with rapid ventricular rate. PHYSICAL EXAMINATION: VITAL SIGNS: Temperature afebrile, heart rate 66. Now heart rate 66, but earlier it was 120. Blood pressure 108/70. HEENT: PERRLA. Extraocular muscles intact. NECK: Supple. No carotid bruits, no thyromegaly. CHEST: Has scattered rhonchi. HEART: S1, S2 irregular. ABDOMEN: Soft. EXTREMITIES: Clubbing, cyanosis negative, 1+ pedal edema. BLOOD WORKUP: WBC 18.3, hemoglobin 9.9, hematocrit 32.3, platelet count 369. Chemistry shows sodium , potassium 4.6, chloride , carbon dioxide 26, anion gap of 14, BUN 49, creatinine 1.2. T otal bilirubin 1, AST 94, ALT 134, lactate dehydrogenase , alkaline phosphatase 146, total prote in .5, albumin 3.3, albumin/globulin ratio 1. TSH 2.94. Troponin 0.01 negative. IMPRESSION: Atrial fibrillation with rapid ventricular rate now, chronic obstructive pulmonary disea se exacerbation, mitral regurgitation, tricuspid regurgitation. Last stress test as per chart has se moon mitral regurgitation, severe tricuspid regurgitation now by last echo dated 05/07/2016 done at [facility]. Prior to that, patient had an echo done here in 2015, end of 2015, ejection fraction 45%. Chronic obstructive pulmonary disease exacerbation, still wheezing. RECOMMENDATIONS: Avoid DuoNeb. Continue Xopenex to prevent tachycardia. Continue Cardizem, continu e Eliquis. We will add a low dose of beta serenity to control the heart rate. We will give an extra dose of digoxin to block the atrioventricular node and continue atenolol 12.5, increased to 12.5 twic e a day and will give extra dose of digoxin and continue Cardizem. We will follow with you. Ailin Lindo. Thank you, Dr. Ruiz, for providing us the opportunity in taking care of the patient. Amari Lan MD cc: [phone] TT: 07/31/2016 10:21:27 Confirmation # [id number] Dictation # [id number] en
--- NOTE | 2016-07-31 12:14 | PN ---
DATE: 07/31/2016 SUBJECTIVE: The patient is an 85-year-old, seen and examined, seems to have shortness of breath this morning. She was wheezing, so she was given extra IV steroids and nebulizer treatment. PHYSICAL EXAMINATION: GENERAL: The patient is awake and alert, communicative. VITAL SIGNS: She is afebrile, pulse 86, respirations 20, blood pressure 127/78. LUNGS: Bilateral few expiratory rhonchi. HEART: S1, S2 audible. ABDOMEN: Soft, nontender, no rebound, no guarding. NEUROLOGIC: She is awake and alert, forgetful. LABORATORY EXAMINATION: WBC is 18.3, hemoglobin 9.9, hematocrit 32.3, platelet of 369. Chemistry: Sodium 136, potassium 4.9, chloride 101, CO2 of 26, BUN 49, creatinine 1.2, blood sugar of 117, AST 9 4, ALT 124, and alkaline phosphatase is 146. Urine culture positive for Enterococcus faecalis. Leg Doppler is unremarkable. CT scan of the chest shows small to moderate size right pleural effusion, c hronic interstitial changes. ASSESSMENT: 1. Chronic obstructive pulmonary disease exacerbation. 2. Bronchospasm. 3. Asthmatic bronchitis. 4. Leukocytosis, probably secondary to steroids. 5. Congestive heart failure, acute on chronic, stable now. 6. Bilateral knee osteoarthritis. 7. Chronic atrial fibrillation. PLAN: The patient is currently on aspirin and diltiazem. She is on Eliquis. We will continue that. Continue her on Lasix and Percocet. She is on Protonix. The patient is also receiving Rocephin. Will increase her Solu-Medrol and she has been started on atenolol 12.5 twice a day. Continue her on Zithromax and I will add Pulmicort to her regimen and will reevaluate the patient in a.m. Out of be d to chair. Venessa Ruiz MD cc: [phone] TT: 07/31/2016 12:13:53 Confirmation # [id number] Dictation # [id number] jasmeet
[2016-07-31] MEDS ORDERED: Arformoterol 15 mcg/2 ml Inh Sol IH SCH (20:00)
[2016-07-31] MEDS: Budesonide 0.5 mg/2 ml Inhal Susp UD IH SCH (20:07)
[2016-07-31] MEDS: MethylPREDNISolone 40 mg Vial IVP SCH (21:27)
--- NOTE | 2016-07-31 23:36 | CP.PCM.PN ---
Subjective - Date & Time of Evaluation Date of Evaluation: 07/31/16 Time of Evaluation: 23:35 - Subjective Subjective: Nurse calls and tells that reece is anxious. Her vital signs are stable. Pulse ox 93% on 3L/Min. I checked patient at bedside. She states that she can not sleep and needs some pill to help her. States that neighbour is watching TV and she can not fall asleep. Has no other complaints. Denies chest pain, SOB. Pertinent medical record was reviewed. This 85 years old woman was admitted with increasing leg swelling and sob/COPD exacerbation. Has PMH of Atrial fibrillation, HTN, morbid obesity, HLD, COPD,CVA. Objective - Vital Signs/Intake and Output Vital Signs (last 24 hours): Temp Pulse Resp BP Pulse Ox 98 F 108 H 22 150/89 93 L 07/31/16 17:30 07/31/16 18:00 07/31/16 17:30 07/31/16 17:47 07/30/16 19:49 Intake and Output: 07/31/16 08/01/16 18:59 06:59 Intake Total 920 Output Total 5 Balance 915 - Medications Medications: Current Medications Acetaminophen (Tylenol 325mg Tab) 650 mg PO Q6H PRN PRN Reason: Fever >100.4 F Last Admin: 07/29/16 12:39 Dose: 650 mg Apixaban (Eliquis) 2.5 mg PO BID [facility] PRN Reason: Protocol Last Admin: 07/31/16 17:48 Dose: 2.5 mg Aspirin (Aspirin Chewable) 81 mg PO DAILY [facility] Last Admin: 07/31/16 09:37 Dose: 81 mg Atenolol (Tenormin) 12.5 mg PO BID [facility] Last Admin: 07/31/16 17:47 Dose: 12.5 mg Budesonide (Pulmicort Respules) 1 mg IH [id number] [facility] Last Admin: 07/31/16 20:07 Dose: 1 mg Diltiazem HCl (Cardizem Cd) 180 mg PO DAILY [facility] Last Admin: 07/31/16 09:39 Dose: 180 mg Furosemide (Lasix) 40 mg IVP DAILY [facility] Last Admin: 07/31/16 09:37 Dose: 40 mg Ceftriaxone Sodium (Rocephin 1 Gram Ivpb) 100 mls @ 100 mls/hr IVPB DAILY [facility] PRN Reason: Protocol Last Admin: 07/31/16 09:39 Dose: 100 mls/hr Azithromycin (Zithromax 500mg In Ns) 250 mls @ 167 mls/hr IVPB DAILY [facility] PRN Reason: Protocol Last Admin: 07/31/16 09:40 Dose: 167 mls/hr Levalbuterol HCl (Xopenex) 1.25 mg IH [id number] [facility] Last Admin: 07/31/16 23:09 Dose: 1.25 mg Levalbuterol HCl (Xopenex) 0.63 mg IH TID[facility] PRN PRN Reason: Shortness of Breath Last Admin: 07/31/16 14:56 Dose: 0.63 mg Methylprednisolone (Solu-Medrol) 30 mg IVP Q12 [facility] Last Admin: 07/31/16 21:27 Dose: 30 mg Oxycodone/Acetaminophen (Percocet 5/325 Mg Tab) 1 tab PO Q4H PRN PRN Reason: Pain, moderate (4-7) Stop: 08/02/16 09:54 Pantoprazole Sodium (Protonix Ec Tab) 40 mg PO 0630 [facility] Last Admin: 07/31/16 05:37 Dose: 40 mg Potassium Chloride (K-Dur 20 Meq Er Tab) 20 meq PO BRK [facility] Last Admin: 07/31/16 09:38 Dose: 20 meq Tramadol/Acetaminophen (Ultracet 37.5/325 Mg) 1 tab PO Q6H PRN PRN Reason: for leg pain Last Admin: 07/29/16 20:02 Dose: 1 tab - Labs Labs: 07/31/16 06:15 07/31/16 06:15 PT 12.4 Seconds (9.9-11.8) H 07/28/16 19:35 INR 1.15 (0.93-1.08) H 07/28/16 19:35 APTT 24.3 Seconds (23.7-30.8) 07/28/16 19:35 - Constitutional Appears: Well, No Acute Distress - Head Exam Head Exam: ATRAUMATIC, NORMAL INSPECTION - Eye Exam Eye Exam: Normal appearance - ENT Exam ENT Exam: Normal External Ear Exam - Neck Exam Neck Exam: Normal Inspection - Respiratory Exam Respiratory Exam: NORMAL BREATHING PATTERN - Cardiovascular Exam Cardiovascular Exam: absent: JVD - GI/Abdominal Exam GI & Abdominal Exam: absent: Distended - Rectal Exam Rectal Exam: Deferred - Neurological Exam Neurological Exam: Alert, Oriented x3 - Psychiatric Exam Psychiatric exam: Normal Affect, Normal Mood - Skin Skin Exam: Normal Color Assessment and Plan - Assessment and Plan (Free Text) Assessment: A/P:Anxiety. Atrial fibrillation. HTN. Obesity. Xanax 0.25 mg PO once. Continue present management.
[2016-08-01] MEDS: Levalbuterol 1.25 MG/3 ML Inhal Soln UD IH SCH ×5 (01:38→19:43)
[2016-08-01 05:44] VITALS: O2SAT 97
[2016-08-01] MEDS: Pantoprazole 40 mg EC Tab PO SCH (06:09)
[2016-08-01] MEDS: Budesonide 0.5 mg/2 ml Inhal Susp UD IH SCH ×3 (07:44→19:43)
[2016-08-01] MEDS: Potassium Chloride 20 mEq ER Tab PO SCH (07:47)
--- NOTE | 2016-08-01 10:09 | PN ---
DATE: 08/01/2016 REASON FOR CONSULTATION AND FOLLOWUP: Shortness of breath, atrial fibrillation, chronic. Yesterday, the patient in A-fib with rapid ventricular rate, COPD exacerbation. BRIEF CLINICAL HISTORY: An 85-year-old female with a past medical history significant for chronic at rial fibrillation, on Eliquis; hypertension, hyperlipidemia, COPD, CVA, admitted with shortness of br eath, cough , worsening leg swelling. The patient denies any chest pain, palpitation. The patient's last echo in 04/2016 shows normal ejection fraction, severe mitral regurgitation, trace tricuspid reg urgitation. The patient's stress test in 09/2014 is negative. The patient feels less short of breath , leg swelling also decreased. A-fib is well controlled. PHYSICAL EXAMINATION: VITAL SIGNS: Temperature afebrile, heart rate 72, blood pressure 138/72. HEENT: PERRLA. Extraocular muscles intact. NECK: Supple. No carotid bruits. No thyromegaly. CHEST: Clear to auscultation. HEART: S1, S2 regular. ABDOMEN: Soft. EXTREMITIES: Clubbing and cyanosis negative. LABORATORY DATA: Blood workup as follows: WBC 18.3, hemoglobin 9.9, hematocrit 32.3, platelet count 369. Chemistry shows sodium 137, potassium 4.9, chloride 101, carbon dioxide 26, anion gap of 14, B UN 49, creatinine 1.2. BNP 4760. IMPRESSION: Acute exacerbation of chronic obstructive pulmonary disease, decompensated congestive he art failure, acute on chronic systolic secondary to significant mitral regurgitation, tricuspid regur gitation, right heart failure, chronic obstructive pulmonary disease, atrial fibrillation with rapid rate. Now, rate is well controlled. RECOMMENDATION: Avoid Xopenex. Continue Cardizem-CD. Continue Eliquis, continue digoxin. We will discontinue telemetry. We will follow with you. Thank you, Dr. Xavier/Dr. Ruiz, for providing the opportunity in taking care of the patient. Continue diuretics as well. We will change Lasix to 10:00 a.m. daily and we will give extra dose at 3:00 p.m. Supplement electrolytes as needed. Amari Lan MD cc: [phone] TT: 08/01/2016 10:08:47 Confirmation # [id number] Dictation # [id number] tn
[2016-08-01] MEDS: diltiaZEM 180 mg/24 Hours CD Cap PO SCH (10:33)
[2016-08-01] MEDS: cefTRIAXone 1 gm 100 ML IVPB SCH (10:34)
[2016-08-01] MEDS: MethylPREDNISolone 40 mg Vial IVP SCH ×2 (10:35→21:01)
[2016-08-01] MEDS: Azithromycin 500MG/NS 250ml 250 ML IVPB SCH (10:36)
[2016-08-01 11:21] LABS: ARTERIAL BLOOD GAS HCO3 22.9 mmol/L (21-28); ARTERIAL BLOOD GAS O2 CAPACITY 13.2 mL/dl (16-24); ARTERIAL BLOOD GAS O2 CONTENT 12.9 ML/dl (15-23); ARTERIAL BLOOD GAS PH 7.45 (7.35-7.45); ARTERIAL BLOOD HGB O2 SAT 95.5 % (95.0-98.0); HHB 2.1 % (0-5); METHEMOGLOBIN 0.5 % (0.0-3.0)
--- NOTE | 2016-08-01 11:56 | RAD ---
HISTORY: sob COMPARISON: 07/29/2016 chest x-ray portable. CT chest without contrast 07/30/2016 FINDINGS: LUNGS: The elevated right hemidiaphragm -approximately 1/3 of the right inferior hemithorax height is as before. Right inferolateral pleural thickening and/or small pleural effusion here is consistent with this current appearance and is similar to the prior portable chest x-ray. No interval progressive effusions or consolidation or atelectasis is suggested. PLEURA: As above. No pneumothorax CARDIOVASCULAR: Cardiomegaly as before calcifications apparently vascular pain over the right scapula - infraclavicular location OSSEOUS STRUCTURES: Minimal thoracic spondylosis. VISUALIZED UPPER ABDOMEN: Normal. OTHER FINDINGS: None. IMPRESSION: Elevated right hemidiaphragm with nonspecific right inferolateral minimal pleural thickening and of small effusion here -. No interval pathology suggested. The extent of the elevated right hemidiaphragm may be contributing to patient's shortness of breath
--- NOTE | 2016-08-01 12:35 | PN ---
DATE: 08/01/2016 SUBJECTIVE: The patient is an 85-year-old who came in with increasing cough and congestion with shor tness of breath, being treated with IV antibiotic, IV steroids and IV diuretic. Cardiology and pulmo anum are also following the patient. This morning, she seems to be congested. She has shortness of breath and wheezing. She was given extra dose of Lasix. PHYSICAL EXAMINATION: VITAL SIGNS: She is afebrile, pulse 102, respirations 20, blood pressure 144/86. LUNGS: Bilateral expiratory rhonchi. HEART: S1, S2 audible. ABDOMEN: Soft, nontender, no rebound, no guarding. NEUROLOGIC: The patient is awake and alert, communicative. LABORATORY: There is no new lab available today. X-ray chest that was done this morning shows eleva day right hemidiaphragm with nonspecific right inferolateral minimal pleural thickening, small effusi on. No interval pathology suggested. ASSESSMENT: 1. Chronic obstructive pulmonary disease exacerbation. 2. Congestive heart failure exacerbation. 3. Leukocytosis that is multifactorial. 4. Bronchospasm. 5. Asthmatic bronchitis. 6. Chronic atrial fibrillation. PLAN: We will continue patient on aspirin 81 daily. She is on Cardizem. She is on Eliquis. Her La six has been increased to 40 q. 12. She is on Protonix and getting Pulmicort. She is also getting I V Rocephin. She is on IV steroids. She is also on Zithromax. Will order for CBC and CMP in a.m. O nce the patient is stable, she will be transferred to TCU. Venessa Ruiz MD cc: [phone] TT: 08/01/2016 12:35:16 Confirmation # [id number] Dictation # [id number] jasmeet
[2016-08-02] MEDS: Levalbuterol 1.25 MG/3 ML Inhal Soln UD IH SCH ×3 (02:51→13:22)
[2016-08-02] MEDS: Pantoprazole 40 mg EC Tab PO SCH (05:36)
[2016-08-02 07:04] LABS: ADD MANUAL DIFF? NO
[2016-08-02 07:14] LABS: GRAN # 11.86 (1.4-6.5); GRAN % 90.5 % (50.0-68.0); HEMATOCRIT 30.6 % (36.0-48.0); LYMPH # 0.6 (1.2-3.4); LYMPH % 4.4 % (22.0-35.0); MEAN CELL VOLUME 87.9 fL (80.0-105.0); MEAN CORPUSCULAR HEMOGLOBIN 27.3 pg (25.0-35.0); MEAN PLATELET VOLUME 11.1 fl (7.0-11.0); MONO # 0.7 (0.1-0.6); MONO % 5.1 % (1.0-6.0); PLATELET COUNT 336 10^3/uL (120.0-450.0); RED CELL DISTRIBUTION WIDTH 18.1 % (11.5-14.5); WHITE BLOOD COUNT 13.1 10^3/ul (4.5-11.0)
--- NOTE | 2016-08-02 07:34 | PN ---
DATE: 08/02/2016 SUBJECTIVE: The patient has no complaints of any chest pain, no shortness of breath, no headaches, n o dizziness. PHYSICAL EXAMINATION: VITAL SIGNS: Temperature 98, pulse is 65, blood pressure is 119/67, respirations 18. GENERAL: The patient comfortable, in no acute distress. HEENT: Anicteric sclerae. Moist mucosa. NECK: No JVD or adenopathy. CARDIAC: S1/S2. No murmurs. No rubs. Regular. RESPIRATORY: Clear to auscultation bilaterally. No wheezes, rales, or rhonchi. Good air entry. ABDOMEN: Bowel sounds are positive, soft, nontender, and nondistended. EXTREMITIES: No edema. Has 1+ pulses. Chest x-ray done shows elevated right hemidiaphragm with nonspecific right inferolateral minimal pleu ral thickening and small pleural effusion. ASSESSMENT: 1. Acute chronic obstructive pulmonary disease. 2. Congestive heart failure, acute on chronic, secondary to systolic dysfunction. 3. Mitral regurgitation. 4. Tricuspid regurgitation. 5. Atrial fibrillation. PLAN: The patient is currently comfortable, is on aspirin, is going to continue on Eliquis for antic oagulation for the atrial fibrillation. The patient is on potassium replacement. She is continuing with Lasix daily for congestive heart failure. She is on Protonix daily. She is receiving pain medi cations. The patient is on atenolol for her rate control. She is on Xanax as needed. She is receiv ing tramadol for pain. She is on Xopenex. The patient is awaiting TCU evaluation. She was seen by physical therapy and at that time, she was medically unstable yesterday. Hoping she can be evaluated by physical therapy today and can be discharged to transitional care unit. Tommie Xavier MD cc: [id number] TT: 08/02/2016 07:33:42 Confirmation # [id number] Dictation # [id number] en
[2016-08-02 07:39] LABS: BLOOD UREA NITROGEN 49 mg/dL (7-21); CALCIUM 7.7 mg/dL (8.4-10.5); CARBON DIOXIDE 29 mmol/L (21-33); CHLORIDE 100 mmol/L (98-107); GFR AFRICAN-AMERICAN > 60; GLUCOSE,RANDOM 110 mg/dL (70-110); MAGNESIUM 2.2 mg/dL (1.7-2.2); PHOSPHOROUS 3.8 mg/dL (2.5-4.5); POTASSIUM 4.2 mmol/L (3.6-5.0); SODIUM 138 mmol/L (132-148)
[2016-08-02] MEDS: Budesonide 0.5 mg/2 ml Inhal Susp UD IH SCH (07:51)
[2016-08-02] MEDS: Potassium Chloride 20 mEq ER Tab PO SCH (08:36)
[2016-08-02] MEDS: cefTRIAXone 1 gm 100 ML IVPB SCH (09:03)
--- NOTE | 2016-08-02 10:21 | CON ---
DATE: 08/02/2016 LOCATION: Room 265, bed 2. Pulmonary evaluation was requested due to a rather large right pleural effusion. The patient is lethargic and does have decreased breath sound at that base. Prompt diagnostic and therapeutic evaluation has been requested. PAST MEDICAL HISTORY: Includes morbid obesity, hypertension, chronic atrial fibrillation, COPD, CVA. ALLERGIES: There are no known allergies. HOME MEDICATIONS: Include Eliquis, Advair, diltiazem and also states that the patient was on Anoro. If she was Anoro and Advair, there are 2 beta agonists present and this is inappropriate therapy. SOCIAL HISTORY: A heavy smoker in the past. No alcohol use. No travel history. FAMILY HISTORY: HTN, CAD REVIEW OF SYSTEMS: Unable to obtain from patient. The chart has been reviewed and this case discussed with warehouse technician. No additional abnormalities are noted. All other systems negative. PHYSICAL EXAMINATION: GENERAL: The patient is obtunded, poorly communicative, possibly sleeping. Discussed with nurse and states that this is not usual, but he believes the patient will awaken soon. If available, I will come back and speak to the patient later. VITAL SIGNS: Stable. She is afebrile, pulse 80, respiratory rate is 20, blood pressure 140/70. CARDIOVASCULAR: Irregular S1, S2 without gallop or rub. There is a soft systolic ejection murmur at the lower left sternal border. CHEST: Good air movement. No rhonchi. There are scattered rales throughout. There are decreased breath sounds at the right base. ABDOMEN: Soft, bowel sounds normoactive, obese. No rebound or guarding. EXTREMITIES: Reveal no clubbing or cyanosis. There is edema noted. LYMPHATICS : Lymphadenopathy is not present. NEUROLOGIC: Difficult to evaluate at this time. SKIN: No rashes LABORATORY STUDIES: Available to me at this time include the following: White count is 13, hemoglobin 9.5, hematocrit 30, platelet count 336. Coagulation shows an INR of 1.15. Blood gas yesterday: PH 7.45, pCO2 33, pO2 78. Chemistries: BUN of 49, creatinine 1, calcium 7.7. BNP 4760 which is significantly elevated. Chest x-ray shows a rather large pleural effusion, some cephalization of vessels , increased air trapping. EKG shows atrial fibrillation with PVCs. DIAGNOSTICS AND DIFFERENTIAL DIAGNOSES: Include: 1. She does not appear to be overly short of breath, but the pleural effusion, etiology of which is unknown, may be in fact related to her cardiac conditions and pulmonary vascular congestion. There may be an etiology from a pulmonary point of view. There may be something hiding behind that having been a smoker for some time. 2. Anticoagulation for atrial fibrillation. 3. Lethargy/sleeping, cannot evaluate further at this time. The nurse will call me back once the patient is more awake. 4. Obesity PLAN: 1. The patient will require a diagnostic and therapeutic thoracentesis. Unfortunately, the patient is on anticoagulants. This must be stopped or a heparin protocol instituted prior to her procedure. We will defer to Dr. Leonel Trinh for evaluation of this effusion as this needs to be done in a more careful matter with monitoring because of her morbid obesity. 2. The patient requires treatment for her COPD. She is significantly anemic with evidence of congestive heart failure. This needs to be evaluated by cardiology. Perhaps this fluid is from the CHF as manifested by the x-ray and elevated BNP. We will put in a consult for Dr. Trinh and decide on the need for further evaluation. Thank you for the opportunity to evaluate this patient. We will continue to follow with you and make sure that the appropriate intervention is completed. Maurice Lind MD cc: [id number] TT: 08/02/2016 10:20:14 Confirmation # [id number] Dictation # [id number] rudy GILLETTE
[2016-08-02] MEDS: diltiaZEM 180 mg/24 Hours CD Cap PO SCH (10:48)
[2016-08-02] MEDS: MethylPREDNISolone 40 mg Vial IVP SCH (10:49)
--- NOTE | 2016-08-02 11:00 | PN ---
DATE: 08/02/2016 REASON FOR CONSULTATION AND FOLLOWUP: Shortness of breath, chronic atrial fibrillation, patient was initially AFib with rapid rate, now rate controlled; chronic obstructive pulmonary disease exacerbati on. 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 Denies any chest pain. Denies any palpitation today. PREVIOUS CARDIAC WORKUP: 04/2016, a normal echo; ejection fraction preserved, severe mitral regurgit ation, trace tricuspid regurgitation. The patient had a stress test in 09/2014, negative for ischemi a. PHYSICAL EXAMINATION: VITAL SIGNS: Temperature afebrile, heart rate ____, blood pressure 119/67. HEENT: PERRLA. Extraocular muscles intact. NECK: Supple. No carotid bruits. No thyromegaly. CHEST: Clear to auscultation. HEART: S1, S2 regular. ABDOMEN: Soft. EXTREMITIES: Clubbing and cyanosis negative. BLOOD WORKUP: WBC 13.1, hemoglobin 9.____, hematocrit 30.6, platelet count 336. Chemistry shows sod ium 130, potassium 4.2, chloride 100, CO2 20, anion gap of 13, BUN 49, creatinine 1.0, magnesium 2.2, phosphorus 3.8. IMPRESSION: Atrial fibrillation, chronic, now rate is well controlled; chronic obstructive pulmonary disease exacerbation, history of cerebrovascular accident, negative stress test in 09/2014; preserve d left ventricular function, severe mitral regurgitation, decompensated congestive heart failure seco ndary to valvular dysfunction secondary to severe mitral regurgitation, congestive heart failure seco ndary to chronic systolic dysfunction, acute on chronic systolic dysfunction as well as mitral regurg itation, right heart failure, chronic obstructive pulmonary disease exacerbation, chronic atrial fibr illation with rapid rate, now rate is well controlled. RECOMMENDATION: Avoid ____. Continue Cardizem-CD. Continue Eliquis. Continue digoxin. Telemetry has been discontinued. Continue aggressive treatment for COPD. Avoid DuoNeb nebulizer treatment to prevent going into atrial fibrillation with rapid ventricular rate. Started on ____. Continue antib iotic. Continue atenolol 12.5 mg b.i.d. The patient will get benefit from TCU. Will follow with jessica castellanos. Thank you, Dr. Xavier/Dr. Ruiz, for providing the opportunity in taking care of this patient. The patient will get the benefit from gentle diuretics because of severe mitral regurgitation, and we will change diuretics to p.o. from tomorrow. Amari Lan MD cc: [id number] TT: 08/02/2016 10:44:43 Confirmation # [id number] Dictation # [id number] mn 08/02/2016 09:59:50
[2016-08-02 12:02] VITALS: BP 124/73; PULSE 77; RESP 16; TEMP 96.3
--- NOTE | 2016-08-22 10:50 | DS ---
Please see the note dictated on 08/02/2016 for further details. The patient was admitted to the hosp ital for acute COPD. She was discharged to [facility] for rehab. Tommie Xavier MD cc: [id number] TT: 08/22/2016 10:49:59 rudy
== END 2016-08-02 13:22 | DRG 190 ==
LOC: ED 19:17 → ERH 20:36 → 2RNO 23:06
PROVIDERS: ADMIT Internal Medicine Nephrology; ATTEND Internal Medicine Nephrology
DX: J44.1 Chronic obstructive pulmonary disease with (acute) exacerbation (principal); J18.9 Pneumonia, unspecified organism; I50.23 Acute on chronic systolic (congestive) heart failure; L03.115 Cellulitis of right lower limb; L03.116 Cellulitis of left lower limb; J44.0 Chronic obstructive pulmonary disease with (acute) lower respiratory infection; I11.0 Hypertensive heart disease with heart failure; I08.1 Rheumatic disorders of both mitral and tricuspid valves; I48.2 Chronic atrial fibrillation; D64.9 Anemia, unspecified; E78.5 Hyperlipidemia, unspecified; E66.9 Obesity, unspecified; M17.0 Bilateral primary osteoarthritis of knee; Z96.641 Presence of right artificial hip joint; J45.909 Unspecified asthma, uncomplicated; F41.9 Anxiety disorder, unspecified; Z68.29 Body mass index [BMI] 29.0-29.9, adult; Z79.02 Long term (current) use of antithrombotics/antiplatelets; Z87.891 Personal history of nicotine dependence; Z86.73 Personal history of transient ischemic attack (TIA), and cerebral infarction without residual deficits

== ENCOUNTER 2016-08-02 13:26 | Inpatient (IN) | payer OTHER ==
[2016-08-02] MEDS ORDERED: TraMADol/Apap 37.5/325 mg Tab PO PRN (16:52)
[2016-08-02] MEDS ORDERED: Oxycodone/Acetaminophen 5/325 mg Tab PO PRN (16:55)
[2016-08-02] MEDS: Budesonide 0.5 mg/2 ml Inhal Susp UD IH SCH (20:18)
[2016-08-02 20:20] VITALS: BMI 29.8
[2016-08-02] MEDS ORDERED: Pneumococcal 23-Valent Vaccine IM ONE (20:20)
[2016-08-02] MEDS: MethylPREDNISolone 40 mg Vial IVP SCH (21:41)
[2016-08-03] MEDS: Pantoprazole 40 mg EC Tab PO SCH (05:35)
[2016-08-03] MEDS: Budesonide 0.5 mg/2 ml Inhal Susp UD IH SCH ×2 (08:29→20:15)
--- NOTE | 2016-08-03 08:33 | PN ---
DATE: 08/03/2016 SUBJECTIVE: The patient has no complaints of any chest pain or shortness of breath, no headaches or dizziness. PHYSICAL EXAMINATION: VITAL SIGNS: Temperature is 97.7, respiratory rate is 20, pulse of 89, blood pressure 122/62. GENERAL: The patient comfortable, in no acute distress. HEENT: Anicteric sclerae. Moist mucosa. NECK: No JVD or adenopathy. CARDIAC: S1/S2. No murmurs. No rubs. Regular. RESPIRATORY: Clear to auscultation bilaterally. No wheezes, rales, or rhonchi. Good air entry. ABDOMEN: Bowel sounds are positive, soft, nontender, and nondistended. EXTREMITIES: No edema. Has 1+ pulses. ASSESSMENT: 1. Acute chronic obstructive pulmonary disease. 2. Congestive heart failure, acute on chronic, secondary to systolic dysfunction. 3. Mitral regurgitation. 4. Tricuspid regurgitation. 5. Atrial fibrillation. PLAN: The patient is currently on transitional care unit for rehab. She is comfortable. She is on Cardizem for atrial fibrillation. She is on Eliquis for her anticoagulation. She is going to contin ue with oxycodone for pain. She is on Rocephin for antibiotic. She is on Solu-Medrol for her steroi ds. She is on Tylenol as needed. I will change her Lasix over to p.o. Tommie Xavier MD cc: [id number] TT: 08/03/2016 08:32:52 Confirmation # [id number] Dictation # [id number] mn
[2016-08-03] MEDS: Potassium Chloride 20 mEq ER Tab PO SCH (08:48)
--- NOTE | 2016-08-03 10:25 | CON ---
DATE: 08/03/2016 REASON FOR CONSULTATION: History of congestive heart failure, COPD, admitted to on the acute floor, continuity of the care in transitional care unit, atrial fibrillation. 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 The patient was treated on the floor for COPD as well as CHF. Now, the patient is in transitional care. Cardiac consult was barrera jasmyn for the continuity of the care in transitional care unit. The patient denies any chest pain, short ness of breath, any palpitation. Lying flat on the bed in transitional care unit, room 313, bed 1. PAST MEDICAL HISTORY: Significant for COPD, CVA, chronic atrial fibrillation, on Eliquis; hypertensi on, hyperlipidemia, congestive heart failure, severe mitral regurgitation and tricuspid regurgitation . Previous cardiac workup as follows: The patient had echocardiography 04/2016 that shows normal eject ion fraction, severe mitral regurg, severe tricuspid regurgitation. The patient had a stress test on 09/2014 that was negative for ischemia. SOCIAL HISTORY: No history of smoking. No history of alcohol abuse. No history of substance abuse. FAMILY HISTORY: Noncontributory. ALLERGIES: No known drug allergy. CURRENT MEDICATIONS: The patient is taking aspirin, Cardizem-CD 180 mg, Eliquis 2.5 mg b.i.d., Lasix 40 b.i.d., potassium, pantoprazole, oxycodone, methylprednisone, atenolol 12.5, Xanax, and albuterol , Xopenex inhaler. REVIEW OF SYSTEMS: As per HPI. PHYSICAL EXAMINATION: VITAL SIGNS: Temperature afebrile, heart rate 85, blood pressure 137/68. HEENT: PERRLA. Extraocular muscles intact. NECK: Supple. No carotid bruits. No thyromegaly. CHEST: Clear to auscultation. HEART: S1, S2 regular. ABDOMEN: Soft. EXTREMITIES: Clubbing and cyanosis negative. LABORATORY DATA: Blood workup as follows: WBC 13.1, hemoglobin 9.5, hematocrit 30.6, platelet count 336. Chemistry shows sodium 130, potassium 4.2, 100, carbon dioxide 20, anion gap of 13, BUN 49, cr eatinine 1.0. IMPRESSION: Decompensated congestive heart failure, moderate to severe tricuspid regurgitation, cere brovascular accident, chronic obstructive pulmonary disease, history of atrial fibrillation, on Eliqu is, chronic obstructive pulmonary disease exacerbation. RECOMMENDATION: Continue aggressive treatment of COPD. Continue Eliquis 2.5 renal adjusted and age adjusted dose. Continue gentle diuretics. Continue Cardizem-CD 180 mg. Continue digoxin. Continue low dose of atenolol. Continue rehab. We will follow with you. Thank you, Dr. Xavier, for providing the opportunity in taking care of the patient. Amari Lan MD cc: [id number] TT: 08/03/2016 10:24:30 Confirmation # [id number] Dictation # [id number] tn
[2016-08-03] MEDS: diltiaZEM 180 mg/24 Hours CD Cap PO SCH (10:34)
[2016-08-03] MEDS: cefTRIAXone 1 gm 100 ML IVPB SCH (10:51)
[2016-08-03] MEDS: Azithromycin 250 MG in Sodium Chloride 0.9% 250 ML IVPB SCH (10:52)
[2016-08-03] MEDS: MethylPREDNISolone 40 mg Vial IVP SCH ×2 (10:53→21:53)
[2016-08-03] MEDS: Levalbuterol 1.25 MG/3 ML Inhal Soln UD IH PRN (20:15)
[2016-08-04] MEDS: Pantoprazole 40 mg EC Tab PO SCH (05:53)
[2016-08-04] MEDS: Budesonide 0.5 mg/2 ml Inhal Susp UD IH SCH ×2 (07:07→20:48)
[2016-08-04 07:46] LABS: HEMATOCRIT 33.5 % (36.0-48.0); MEAN CELL VOLUME 88.6 fL (80.0-105.0); MEAN CORPUSCULAR HEMOGLOBIN 27.2 pg (25.0-35.0); MEAN CORPUSCULAR HGB CONC 30.7 g/dl (31.0-37.0); MEAN PLATELET VOLUME 10.8 fl (7.0-11.0); RED CELL DISTRIBUTION WIDTH 18.1 % (11.5-14.5); WHITE BLOOD COUNT 14.5 10^3/ul (4.5-11.0)
[2016-08-04 07:55] LABS: ALB/GLOB RATIO 1.1 (1.1-1.8); ALKALINE PHOSPHATASE 107 U/L (38-133); ALT/SGPT 89 U/L (7-56); AST/SGOT 33 U/L (15-39); BILIRUBIN,TOTAL 0.9 mg/dL (0.2-1.3); BLOOD UREA NITROGEN 41 mg/dL (7-21); CALCIUM 8.6 mg/dL (8.4-10.5); CARBON DIOXIDE 36 mmol/L (21-33); CHLORIDE 96 mmol/L (95-110); GFR AFRICAN-AMERICAN > 60; GLUCOSE,RANDOM 121 mg/dL (70-110); SODIUM 139 mmol/L (132-148); TOTAL PROTEIN 6.2 g/dL (5.8-8.3)
[2016-08-04] MEDS: Potassium Chloride 20 mEq ER Tab PO SCH ×2 (08:26→14:44)
[2016-08-04] MEDS: MethylPREDNISolone 40 mg Vial IVP SCH ×2 (10:14→21:35)
[2016-08-04] MEDS: cefTRIAXone 1 gm 100 ML IVPB SCH (10:14)
[2016-08-04] MEDS: Azithromycin 250 MG in Sodium Chloride 0.9% 250 ML IVPB SCH (10:15)
[2016-08-04] MEDS: diltiaZEM 180 mg/24 Hours CD Cap PO SCH (10:16)
--- NOTE | 2016-08-04 10:55 | PN ---
DATE: 08/04/2016 The patient was seen and examined at bedside. She shows no sign of respiratory difficulty. She is s lightly lethargic. The patient was admitted with cerebrovascular accident, acute pancreatitis, hematuria and pneumonia, rule out aspiration. Currently, her respiratory status is stable. PHYSICAL EXAMINATION: VITAL SIGNS: Temperature 97.7, respiratory rate 20, pulse 80, blood pressure 122/62. HEAD, EARS, NOSE AND THROAT: Atraumatic, normocephalic. NECK: Supple with no JVD, no adenopathy. CARDIOVASCULAR: S1, S2 regular. No murmurs. RESPIRATORY: Clear to auscultation, no wheezes or rhonchi. GASTROINTESTINAL: Soft, nontender with no organomegaly. EXTREMITIES: No edema. SKIN: Clear with no skin rashes. NEUROLOGIC: No focal deficits. ASSESSMENT: 1. Exacerbation of acute on chronic congestive heart failure. 2. Exacerbation of chronic obstructive pulmonary disease. 3. Atrial fibrillation. 4. Cerebrovascular accident. PLAN: The patient appears comfortable. There are no respiratory difficulties. The steroids can be tapered. Continue with nebulizer treatment as ordered. The patient is making progress. Jose Shen MD cc: [id number] TT: 08/04/2016 10:55:45 Confirmation # [id number] Dictation # [id number] jn
[2016-08-04] MEDS: Levalbuterol 1.25 MG/3 ML Inhal Soln UD IH PRN (20:48)
[2016-08-05] MEDS: Pantoprazole 40 mg EC Tab PO SCH (06:02)
[2016-08-05 06:22] LABS: ALB/GLOB RATIO 1.1 (1.1-1.8); ALKALINE PHOSPHATASE 91 U/L (38-133); ALT/SGPT 82 U/L (7-56); AST/SGOT 31 U/L (15-39); BILIRUBIN,TOTAL 0.8 mg/dL (0.2-1.3); BLOOD UREA NITROGEN 42 mg/dL (7-21); CALCIUM 8.1 mg/dL (8.4-10.5); CARBON DIOXIDE 34 mmol/L (21-33); CHLORIDE 97 mmol/L (95-110); GFR AFRICAN-AMERICAN > 60; GLUCOSE,RANDOM 132 mg/dL (70-110); POTASSIUM 3.9 mmol/L (3.6-5.0); SODIUM 137 mmol/L (132-148); TOTAL PROTEIN 5.8 g/dL (5.8-8.3)
[2016-08-05] MEDS: Budesonide 0.5 mg/2 ml Inhal Susp UD IH SCH ×2 (07:28→22:14)
[2016-08-05] MEDS: Potassium Chloride 20 mEq ER Tab PO SCH (08:14)
[2016-08-05] MEDS: diltiaZEM 180 mg/24 Hours CD Cap PO SCH (10:35)
[2016-08-05] MEDS: cefTRIAXone 1 gm 100 ML IVPB SCH (10:36)
[2016-08-05] MEDS: MethylPREDNISolone 40 mg Vial IVP SCH ×2 (10:37→21:36)
[2016-08-05] MEDS: Azithromycin 250 MG in Sodium Chloride 0.9% 250 ML IVPB SCH (12:28)
--- NOTE | 2016-08-06 00:33 | CP.PCM.PN ---
Subjective - Date & Time of Evaluation Date of Evaluation: 08/04/16 Time of Evaluation: 13:00 - Subjective Subjective: No complaints. shortness of breath improved. Fatigue present. Objective - Vital Signs/Intake and Output Vital Signs (last 24 hours): Temp Pulse Resp BP Pulse Ox 98 F 76 15 127/68 94 L 08/05/16 16:00 08/05/16 17:07 08/05/16 16:00 08/05/16 17:07 08/05/16 16:00 - Medications Medications: Current Medications Acetaminophen (Tylenol 325mg Tab) 650 mg PO Q6H PRN PRN Reason: Fever >100.4 F Alprazolam (Xanax) 0.25 mg PO DAILY TARSHA PRN Reason: Protocol Stop: 08/10/16 10:01 Last Admin: 08/05/16 10:40 Dose: 0.25 mg Apixaban (Eliquis) 2.5 mg PO BID TARSHA PRN Reason: Protocol Last Admin: 08/05/16 17:06 Dose: 2.5 mg Aspirin (Aspirin Chewable) 81 mg PO DAILY TARSHA PRN Reason: Protocol Last Admin: 08/05/16 10:35 Dose: 81 mg Atenolol (Tenormin) 12.5 mg PO BID [facility] Last Admin: 08/05/16 17:07 Dose: 12.5 mg Budesonide (Pulmicort Respules) 1 mg IH [id number] [facility] Last Admin: 08/05/16 22:14 Dose: Not Given Diltiazem HCl (Cardizem Cd) 180 mg PO DAILY [facility] Last Admin: 08/05/16 10:35 Dose: 180 mg Furosemide (Lasix) 40 mg PO 0800,1400 TARSHA PRN Reason: Protocol Last Admin: 08/05/16 16:14 Dose: 40 mg Ceftriaxone Sodium (Rocephin 1 Gram Ivpb) 100 mls @ 100 mls/hr IVPB DAILY TARSHA PRN Reason: Protocol Last Admin: 08/05/16 10:36 Dose: 100 mls/hr Azithromycin 250 mg/ Sodium (Chloride) 250 mls @ 167 mls/hr IVPB DAILY TARSHA PRN Reason: Protocol Last Admin: 08/05/16 12:28 Dose: 167 mls/hr Levalbuterol HCl (Xopenex) 1.25 mg IH [id number] PRN PRN Reason: Shortness of Breath Last Admin: 08/04/16 20:48 Dose: 1.25 mg Methylprednisolone (Solu-Medrol) 30 mg IVP Q12 TARSHA PRN Reason: Protocol Last Admin: 08/05/16 21:36 Dose: 30 mg Ondansetron HCl (Zofran Inj) 4 mg IVP Q6H PRN PRN Reason: Nausea/Vomiting Last Admin: 08/05/16 19:50 Dose: 4 mg Pantoprazole Sodium (Protonix Ec Tab) 40 mg PO 0630 TARSHA PRN Reason: Protocol Last Admin: 08/05/16 06:02 Dose: 40 mg Potassium Chloride (K-Dur 20 Meq Er Tab) 20 meq PO 0800 TARSHA Last Admin: 08/05/16 08:14 Dose: 20 meq Tramadol/Acetaminophen (Ultracet 37.5/325 Mg) 1 tab PO Q6H PRN PRN Reason: Pain, Mild (1-3) - Labs Labs: 08/04/16 07:40 08/05/16 05:45 - Head Exam Head Exam: ATRAUMATIC, NORMAL INSPECTION, NORMOCEPHALIC - Eye Exam Eye Exam: Normal appearance Pupil Exam: NORMAL ACCOMODATION - ENT Exam ENT Exam: Mucous Membranes Moist - Neck Exam Neck Exam: Normal Inspection - Respiratory Exam Respiratory Exam: Clear to Ausculation Bilateral, NORMAL BREATHING PATTERN - Cardiovascular Exam Cardiovascular Exam: REGULAR RHYTHM, +S1, +S2 - GI/Abdominal Exam GI & Abdominal Exam: Normal Bowel Sounds - Extremities Exam Extremities Exam: Full ROM, Normal Capillary Refill, Normal Inspection - Back Exam Back Exam: NORMAL INSPECTION - Neurological Exam Neurological Exam: Alert, Awake, CN II-XII Intact, Normal Gait, Oriented x3 - Psychiatric Exam Psychiatric exam: Normal Affect Assessment and Plan (1) Leukocytosis Assessment & Plan: WC declined. Status: Acute (2) Congestive heart failure Assessment & Plan: improved. continue cardizem Status: Acute (3) Chronic obstructive pulmonary disease Status: Chronic (4) Atrial fibrillation Assessment & Plan: on eliquis. HR controlled with cardizem Status: Chronic (5) Anemia Assessment & Plan: chronic, Hb/hct stable. Status: Acute
[2016-08-06] MEDS ORDERED: cefTRIAXone 1 gm 100 ML IVPB SCH (06:00)
[2016-08-06] MEDS ORDERED: Azithromycin 250 MG in Sodium Chloride 0.9% 250 ML IVPB SCH (06:00)
[2016-08-06] MEDS: Pantoprazole 40 mg EC Tab PO SCH (06:28)
[2016-08-06] MEDS: Budesonide 0.5 mg/2 ml Inhal Susp UD IH SCH ×2 (07:22→21:41)
--- NOTE | 2016-08-06 07:37 | PN ---
DATE: 08/06/2016 SUBJECTIVE: The patient appears comfortable this morning. She is not short of breath at rest. PHYSICAL EXAMINATION: VITAL SIGNS: Temperature is 98.0, pulse 76, respirations 15, blood pressure 127 /68. Oxygen saturation on nasal cannula is 94%-98%. HEENT: Normocephalic, atraumatic. No JVD. CARDIOVASCULAR: Systolic ejection murmur at the lower left sternal border. No S3 gallop. LUNGS: Decreased breath sounds at the bases. Minimal rhonchi. No wheezing. EXTREMITIES: No clubbing, cyanosis, or edema. Calves are nontender to palpation. GASTROINTESTINAL: Abdomen is soft, nontender, nondistended. Bowel sounds are positive. SKIN: No acute rash. NEUROLOGIC: Limited at the present time. IMPRESSION: 1. Chronic obstructive pulmonary disease. 2. Congestive heart failure. 3. Atrial fibrillation. 4. Acute bronchitis. PLAN: The patient appears comfortable this morning. She is not short of breath at rest. She states she is feeling much better overall. On physical exam, there is no significant bronchospasm noted. In addition, there is no significant alveolar-arterial gradient. I will continue with the current nebulizer treatments and decrease the intravenous steroids this morning. The patient also remains on antibiotic therapy. There are no temperatures noted. Clinical status of the patient is certainly improved -- compared to the initial presentation. I will discuss the above with the attending physician. Anastacio Gamez MD cc: [phone] TT: 08/06/2016 07:36:39 Confirmation # [id number] Dictation # [id number] MTDD
--- NOTE | 2016-08-06 09:27 | PN ---
DATE: 08/06/2016 SUBJECTIVE: The patient has no complaints of any headaches or dizziness. She says she is having irene sea and vomiting. She had nausea and vomiting last night as well. PHYSICAL EXAMINATION: VITAL SIGNS: Temperature is 98.6, pulse is 76, blood pressure 127/68, respirations 15. GENERAL: The patient comfortable, in no acute distress. HEENT: Anicteric sclerae. Moist mucosa. NECK: No JVD or adenopathy. CARDIAC: S1/S2. No murmurs. No rubs. Regular. RESPIRATORY: Clear to auscultation bilaterally. No wheezes, rales, or rhonchi. Good air entry. ABDOMEN: Bowel sounds are positive, soft, nontender, and nondistended. EXTREMITIES: No edema. Has 1+ pulses. LABS: White count of 14.5, hemoglobin 10.3. Creatinine 0.9. ASSESSMENT: 1. Nausea and vomiting. 2. Acute chronic obstructive pulmonary disease, improving. 3. Acute congestive heart failure secondary to systolic dysfunction, stable and improved. 4. Mitral regurgitation. 5. Tricuspid regurgitation. 6. Atrial fibrillation. PLAN: The patient is on Eliquis; this will be continued. She is on Rocephin for antibiotics. The p atient had enterococcus in the urine and has been treated adequately for more than a week. The nause a and vomiting may be related to the patient's antibiotics; I will discontinue that. She is on Zofr an. She is being followed by pulmonary. The patient is on Xopenex. She is also on Xanax as needed. She is on atenolol. Tommie Xavier MD cc: [id number] TT: 08/06/2016 09:26:20 Confirmation # [id number] Dictation # [id number] mn
[2016-08-06] MEDS: Potassium Chloride 20 mEq ER Tab PO SCH (10:36)
[2016-08-06] MEDS: MethylPREDNISolone 40 mg Vial IVP SCH ×2 (10:39→21:11)
--- NOTE | 2016-08-06 10:56 | PN ---
DATE: 08/06/2016 The patient is in room 313, bed 1. REASON FOR CONSULTATION: Followup history of CHF, COPD, admitted to medical floor and now she is gen n in transitional care unit, atrial fibrillation. HISTORY OF PRESENT ILLNESS: An 85-year-old female with past medical history significant for chronic atrial fibrillation, hypertension, hyperlipidemia, COPD, CVA, admitted with shortness of breath, coug h, with worsening leg edema, acute exacerbation of COPD. The patient was treated on medical floor an d she got better, now she is in transitional care unit for deconditioning and physical therapy. The patient is sitting in chair without any cardiac symptoms, denies any chest pain, shortness of breath, palpitation. PHYSICAL EXAMINATION: VITAL SIGNS: Blood pressure is 127/68, respirations 15, pulse 76, temperature 98. HEENT: Head is normocephalic. Eyes: Pupils normal. Conjunctivae slightly pale. NECK: JVP low. LUNGS: Clear. CARDIOVASCULAR: S1, S2. ABDOMEN: Soft, nontender, no organomegaly. Bowel sounds normal. EXTREMITIES: No clubbing, no cyanosis. LABORATORY DATA: Sodium 137, potassium 3.9, BUN 42, creatinine 0.9, random sugar 123. AST 31, ALT 8 2, total protein, albumin, phosphorus normal. WBC 14.5, hemoglobin 10.3, hematocrit 33.5, platelets 372. DIAGNOSES: Decompensated congestive heart failure, moderate to severe tricuspid regurg, cerebrovascu lar accident, chronic obstructive pulmonary disease, history of atrial fibrillation, chronic obstruct rj pulmonary disease with exacerbation, deconditioning. PLAN: To continue aspirin 81 mg daily, Cardizem-CD 180 p.o. daily, Eliquis 2.5 b.i.d., potassium 20 mEq p.o. daily, furosemide 40 b.i.d., Protonix 40 daily, methylprednisone 20 mg IV q. 12 hours, ateno lol 12.5 mg b.i.d., continue present therapy and continue physical therapy. We will follow with you. Amari Johnson MD cc: [phone] TT: 08/06/2016 10:55:52 Confirmation # [id number] Dictation # [id number]
--- NOTE | 2016-08-06 13:44 | CP.PCM.PN ---
Subjective - Date & Time of Evaluation Date of Evaluation: 08/06/16 Time of Evaluation: 13:36 - Subjective Subjective: Patient has very poor veins,needs iv access. Objective - Vital Signs/Intake and Output Vital Signs (last 24 hours): Temp Pulse Resp BP Pulse Ox 98.4 F 84 20 149/64 97 08/06/16 10:00 08/06/16 11:26 08/06/16 10:00 08/06/16 10:00 08/06/16 10:00 - Medications Medications: Current Medications Acetaminophen (Tylenol 325mg Tab) 650 mg PO Q6H PRN PRN Reason: Fever >100.4 F Alprazolam (Xanax) 0.25 mg PO DAILY TARSHA PRN Reason: Protocol Stop: 08/10/16 10:01 Last Admin: 08/05/16 10:40 Dose: 0.25 mg Apixaban (Eliquis) 2.5 mg PO BID TARSHA PRN Reason: Protocol Last Admin: 08/06/16 10:00 Dose: Not Given Aspirin (Aspirin Chewable) 81 mg PO DAILY TARSHA PRN Reason: Protocol Last Admin: 08/06/16 10:36 Dose: Not Given Atenolol (Tenormin) 12.5 mg PO BID [facility] Last Admin: 08/06/16 10:00 Dose: Not Given Budesonide (Pulmicort Respules) 1 mg IH [id number] [facility] Last Admin: 08/06/16 07:22 Dose: 1 mg Diltiazem HCl (Cardizem Cd) 180 mg PO DAILY [facility] Last Admin: 08/05/16 10:35 Dose: 180 mg Furosemide (Lasix) 40 mg PO 0800,1400 TARSHA PRN Reason: Protocol Last Admin: 08/06/16 10:37 Dose: Not Given Levalbuterol HCl (Xopenex) 1.25 mg IH [id number] PRN PRN Reason: Shortness of Breath Last Admin: 08/04/16 20:48 Dose: 1.25 mg Methylprednisolone (Solu-Medrol) 20 mg IVP Q12 [facility] Last Admin: 08/06/16 10:39 Dose: 20 mg Ondansetron HCl (Zofran Inj) 4 mg IVP Q6H PRN PRN Reason: Nausea/Vomiting Last Admin: 08/06/16 08:33 Dose: 4 mg Pantoprazole Sodium (Protonix Ec Tab) 40 mg PO 0630 TARSHA PRN Reason: Protocol Last Admin: 08/06/16 06:28 Dose: 40 mg Potassium Chloride (K-Dur 20 Meq Er Tab) 20 meq PO 0800 TARSHA Last Admin: 08/06/16 10:36 Dose: Not Given Tramadol/Acetaminophen (Ultracet 37.5/325 Mg) 1 tab PO Q6H PRN PRN Reason: Pain, Mild (1-3) - Labs Labs: 08/04/16 07:40 08/05/16 05:45 - Constitutional Appears: Chronically Ill Assessment and Plan - Assessment and Plan (Free Text) Assessment: Poor venous access. Plan: Hep lock inserted in the R wrist region. # 24 angiocath used.
[2016-08-06] MEDS: diltiaZEM 180 mg/24 Hours CD Cap PO SCH (18:09)
--- NOTE | 2016-08-06 19:34 | CON ---
DATE: 08/06/2016 HISTORY OF PRESENT ILLNESS: This patient was seen and evaluated earlier and discussed with nursing staff. This is an 85-year-old patient with a positive past medical history of chronic atrial fibrillation on Eliquis, hypertension, dyslipidemia, COPD, status post CVA, initially admitted with a cough and shortness of breath. Being treated for exacerbation of COPD and also for CHF. The patient was on ceftriaxone and also on azithromycin. The patient's antibiotics were discontinued. Complains of nausea and episode of vomiting and abdominal pain mainly in the epigastric area. PAST MEDICAL HISTORY: Other past medical history is significant as above with a history of severe mitral regurgitation, severe tricuspid regurgitation. SOCIAL HISTORY: No smoking, no alcohol. FAMILY HISTORY: Noncontributory. ALLERGIES: No known drug allergy. REVIEW OF SYSTEMS: Positive as above. PHYSICAL EXAMINATION: GENERAL: The patient is lying on the bed, not in acute distress. VITAL SIGNS: Temperature is 98.4, pulse 94, blood pressure is 132/75, respirations 18, O2 saturation 99. HEENT: Atraumatic, anicteric. NECK: Supple. HEART: S1, S2 heard. LUNGS: Bilateral air entry present. ABDOMEN: Soft. There is tenderness present in the epigastric region. No rebound or guarding. EXTREMITIES: No edema, no cyanosis. No clubbing. NEUROLOGIC: Alert, oriented. Moves all the extremities. LABORATORY DATA: Yesterday's lab reviewed. CMP was essentially unremarkable, except blood glucose of 154. CBC showed hemoglobin of 10.3, hematocrit 33.5, WBC 14.5 and platelets 372. IMPRESSION: An 85-year-old patient with a history of chronic atrial fibrillation, chronic obstructive pulmonary disease, admitted with exacerbation of the chronic obstructive pulmonary disease and congestive heart failure. The patient is complaining of nausea, vomiting and abdominal pain. Thought to be secondary to the medication both Zithromax and ceftriaxone have been discontinued. The patient was also on steroid. The patient had a CT chest done , which showed bilateral pleural effusion . The differential diagnosis for abdominal pain should include peptic ulcer disease, pancreatitis, erosive esophagitis to be considered. PLAN 1. Clear liquid diet. 2. IV Protonix. 3. Will request for serum amylase level to be done. 4. We will continue to closely follow up her care and suggest further management based on the clinical course. Rohan Cavazos MD cc: [id number] TT: 08/06/2016 19:32:55 Confirmation # [id number] Dictation # [id number] ln MTDD
[2016-08-07] MEDS: Potassium Chloride 20 mEq ER Tab PO SCH (07:59)
[2016-08-07] MEDS: Budesonide 0.5 mg/2 ml Inhal Susp UD IH SCH ×2 (08:01→19:01)
[2016-08-07 08:11] LABS: BILIRUBIN,TOTAL 2.1 mg/dL (0.2-1.3); CALCIUM 8.2 mg/dL (8.4-10.5); POTASSIUM 4.3 mmol/L (3.6-5.0); TOTAL PROTEIN 6.1 g/dL (5.8-8.3)
[2016-08-07 08:19] LABS: HEMATOCRIT 39.8 % (36.0-48.0); MEAN CELL VOLUME 86.1 fL (80.0-105.0); MEAN CORPUSCULAR HEMOGLOBIN 27.5 pg (25.0-35.0); MEAN CORPUSCULAR HGB CONC 31.9 g/dl (31.0-37.0); MEAN PLATELET VOLUME 11.1 fl (7.0-11.0); PLATELET COUNT 395 10^3/uL (120.0-450.0); RED CELL DISTRIBUTION WIDTH 18.4 % (11.5-14.5)
[2016-08-07 08:24] LABS: WHITE BLOOD COUNT 63.3 10^3/ul (4.5-11.0)
[2016-08-07 08:32] LABS: ADD MANUAL DIFF? NO; BASO # 0.01 K/mm3 (0.0-2.0); GRAN # 58.75 (1.4-6.5); GRAN % 91.3 % (50.0-68.0); LYMPH # 1.5 (1.2-3.4); LYMPH % 2.3 % (22.0-35.0); MONO # 4.1 (0.1-0.6); MONO % 6.4 % (1.0-6.0)
--- NOTE | 2016-08-07 09:23 | PN ---
DATE: 08/07/2016 The patient appears very comfortable at rest. She is not short of breath. PHYSICAL EXAMINATION: VITAL SIGNS (last noted in the computer): Temperature is 98.4, pulse 94, respirations 18, blood pressure 132/75. Oxygen saturation on nasal cannula is 99%. HEENT: Normocephalic, atraumatic. No JVD. CARDIOVASCULAR: Systolic ejection murmur at the lower left sternal border. No S3 gallop. LUNGS: Decreased breath sounds at the bases. Very minimal/less rhonchi. No wheezing. EXTREMITIES: No clubbing, cyanosis or edema. Calves are nontender to palpation. GASTROINTESTINAL: Abdomen is soft, nontender, nondistended. Bowel sounds are positive. SKIN: No acute rash. NEUROLOGIC: Limited at the present time. IMPRESSION: 1. Chronic obstructive pulmonary disease. 2. Congestive heart failure. 3. Atrial fibrillation. 4. Acute bronchitis. PLAN: The patient appears very comfortable this morning. She is not short of breath at rest. She states she is feeling much better overall. On physical exam, her bronchospasm continues to resolve. In addition, the oxygen saturation on nasal cannula is now 99%. I will continue with the current nebulizer treatments and change to oral steroids this morning. Inputs by GI and cardiology are noted. Clinical status of the patient is certainly improved -- compared to the initial presentation. However, again, the overall status/ prognosis of this elderly patient remains guarded. I will discuss the above with Dr. Xavier. Anastacio Gamez MD cc: [id number] TT: 08/07/2016 09:22:28 Confirmation # [id number] Dictation # [id number] MTDD
--- NOTE | 2016-08-07 09:56 | PN ---
DATE: 08/07/2016 REASON FOR CONSULTATION AND FOLLOWUP: CHF, COPD, history of chronic atrial fibrillation, continuity of care in transitional care unit. BRIEF CLINICAL HISTORY: This 85-year-old female with past medical history significant for chronic at rial fibrillation, hypertension, hyperlipidemia, COPD, CVA, admitted with shortness of breath, acute exacerbation of COPD, treated on medical floor. Now the patient is in transitional care unit. Denie s any chest pain, shortness of breath. Complaining of ____ is hurting. PHYSICAL EXAMINATION: VITAL SIGNS: Temperature afebrile, heart rate 84, blood pressure 132/75. HEENT: PERRLA. Extraocular muscles intact. NECK: Supple. No carotid bruits. No thyromegaly. CHEST: Clear to auscultation. HEART: S1, S2 regular. ABDOMEN: Soft. EXTREMITIES: Clubbing and cyanosis negative. BLOOD WORKUP: WBC 63.3, hemoglobin 12.7, hematocrit 39.8, platelet count 395. Chemistry shows sodiu m 130, potassium 4.3, chloride 93, carbon dioxide 33, anion gap of 14, BUN 63, creatinine 1.2. IMPRESSION: Decompensated congestive heart failure, moderate to severe tricuspid regurgitation, cere brovascular accident, chronic atrial fibrillation, chronic obstructive pulmonary disease, acute exace rbation of chronic obstructive pulmonary disease, elevated WBC. The patient's echocardiogram of 04/16____ shows a normal ejection fraction, severe mitral regurgitation, severe tricuspid regurgitation. Stress test 09/2014 was negative for ischemia. Acute decompensated congestive heart failure second owen to valvular heart disease, severe mitral regurgitation as well as severe tricuspid regurgitation and right heart failure (essentially right heart failure). RECOMMENDATION: Will send the panculture to rule out any infection. Needs hematology/oncology evalu ation. We will send also uric acid level to rule out acute gout because BUN is elevated. Will follo w with you. Thank you, Dr. Xavier, for providing the opportunity in taking care of the patient. Yesterday, WBC was 14; today it is 63. Amari Lan MD cc: [id number] TT: 08/07/2016 09:56:08 Confirmation # [id number] Dictation # [id number] mn
[2016-08-07] MEDS: diltiaZEM 180 mg/24 Hours CD Cap PO SCH (10:40)
[2016-08-07 10:47] VITALS: BP 154/80; PULSE 72
[2016-08-07 12:14] VITALS: RESP 20; TEMP 98.3; O2SAT 97
[2016-08-07] MEDS ORDERED: Dextrose 5%/0.45% NS 1,000 ML IV SCH (12:30)
[2016-08-07 12:43] LABS: AMYLASE 160 U/L (35-125); LIPASE 41 U/L (23-300)
[2016-08-07 13:36] LABS: HEMATOCRIT 40.1 % (36.0-48.0); MEAN CELL VOLUME 86.6 fL (80.0-105.0); MEAN CORPUSCULAR HEMOGLOBIN 27.9 pg (25.0-35.0); MEAN CORPUSCULAR HGB CONC 32.2 g/dl (31.0-37.0); MEAN PLATELET VOLUME 11.8 fl (7.0-11.0); PLATELET COUNT 429 10^3/uL (120.0-450.0); RED CELL DISTRIBUTION WIDTH 18.8 % (11.5-14.5)
[2016-08-07 13:43] LABS: ADD MANUAL DIFF? NO; WHITE BLOOD COUNT 66.4 10^3/ul (4.5-11.0)
--- NOTE | 2016-08-07 17:03 | PN ---
DATE: 08/07/2016 HISTORY OF PRESENT ILLNESS: The patient was seen and examined at the bedside earlier today. This af ternoon, the patient is having increased diffuse abdominal pain. Does complain of nausea. She is no day to have very elevated WBC count. No reports of vomiting or any fevers. Denies any shortness of breath, chest pain. No reports of any diarrhea or any overt GI bleed. VITAL SIGNS: Temperature is 98.3, blood pressure is 154/80, pulse 72, respirations 20, 97 nasal lydia susana. LABORATORY DATA: This showed WBC was 63.3. It was repeated again at 1, and it is 66.4. Hemoglobin is 12.7, hematocrit 39.8, and platelet count is 395. Chem: Sodium 136, potassium 4.3, BUN 63, creat inine is 1.2, total bilirubin is 2.1, AST 26, ALT 67. Amylase is 160 and lipase is 41. PHYSICAL EXAMINATION: HEENT: Sclera is anicteric. NECK: Supple. CARDIAC: S1, S2. LUNGS: Decreased breath sounds at the bases, but no rales or wheeze. Has good air entry. ABDOMEN: With bowel sounds. It is soft with diffuse tenderness with positive rebound, guarding. NEUROLOGIC: The patient is awake and alert. ASSESSMENT: This is an 85-year-old female with atrial fibrillation, chronic obstructive pulmonary di sease, and acute bronchitis, initially complaining of nausea, vomiting, and abdominal pain. Original ly thought could be secondary to medications, the Zithromax and ceftriaxone, which have been disconti nued. The patient is also on steroids, but now patient with acute abdomen, rule out any peritonitis, pancreatitis, although the amylase and lipase levels are okay. PLAN: Our plan is to have a stat CT scan of abdomen and pelvis. The patient is going to be taken to the ER for further evaluation as soon as possible. This was discussed with the nursing staff. The patient has been made n.p.o. except for medications and she has increased leukocytosis. Blood cultur e is pending. She is going to be seen by ID. The patient is currently on Eliquis, Cardizem, Lasix, Protonix, and prednisone. Will continue to follow closely. Discussed the patient's status with nurs ing staff and Dr. Amato. Will also get a surgical evaluation. The patient was seen and case disc ussed with Dr. Cavazos. Dorothea LAZO cc: [id number] TT: 08/07/2016 17:02:20 Confirmation # [id number] Dictation # [id number] dn
[2016-08-07] MEDS ORDERED: Meropenem 1g/NS 100mL IVPB 1 GM/100 ML PIGGYBACK IVPB SCH (18:56)
--- NOTE | 2016-08-07 18:59 | CP.PCM.CON ---
History of Present Illness - History of Present Illness History of Present Illness: 85 year old female with PMH of HTN, dyslipidemia, S/P cerebrovascular accident, chronic atrial fibrillation, COPD, CHF was initially admitted in [facility] because of acute exacerbation of COPD. She had been doing well and was transferred to [facility]. Labs today revealed marked leukocytosis and the patient has been complaining of abdominal pain, discomfort and nausea. The patient is not very cooperative and full review of systems is difficult to obtain. Infectious Diseases consult is requested to further evaluate and manage. Review of Systems - Review of Systems Systems not reviewed;Unavailable: Uncooperative Past Patient History - Infectious Disease Hx of Infectious Diseases: None - Tetanus Immunizations Tetanus Immunization: Unknown - Past Medical History & Family History Past Medical History?: Yes - Past Social History Smoking Status: Former Smoker - CARDIAC Hx Hypertension: Yes - PULMONARY Hx Chronic Obstructive Pulmonary Disease (COPD): Yes - NEUROLOGICAL HX Cerebrovascular Accident: Yes - HEENT Hx HEENT Problems: No - RENAL Hx Chronic Kidney Disease: No - ENDOCRINE/METABOLIC Hx Diabetes Mellitus Type 2: Yes - HEMATOLOGICAL/ONCOLOGICAL Hx Blood Disorders: Yes Hx AIDS: No Hx Anemia: Yes - INTEGUMENTARY Hx Dermatological Problems: No - MUSCULOSKELETAL/RHEUMATOLOGICAL Hx Falls: Yes - GASTROINTESTINAL Hx Gastrointestinal Disorders: No - GENITOURINARY/GYNECOLOGICAL Hx Genitourinary Disorders: Yes (UTI) Hx Reproductive Disorders: No - PSYCHIATRIC Hx Psychophysiologic Disorder: Yes Hx Anxiety: Yes Hx Substance Use: No - SURGICAL HISTORY Hx Joint Replacement: Yes (right hip) - ANESTHESIA Hx Anesthesia: Yes Hx Anesthesia Reactions: No Hx Malignant Hyperthermia: No Meds Allergies/Adverse Reactions: Allergies Allergy/AdvReac Type Severity Reaction Status Date / Time No Known Allergies Allergy Verified 08/07/16 15:21 - Medications Medications: Current Medications Acetaminophen (Tylenol 325mg Tab) 650 mg PO Q6H PRN PRN Reason: Fever >100.4 F Last Admin: 08/06/16 21:34 Dose: 650 mg Alprazolam (Xanax) 0.25 mg PO DAILY [facility] PRN Reason: Protocol Stop: 08/10/16 10:01 Last Admin: 08/07/16 10:46 Dose: 0.25 mg Apixaban (Eliquis) 2.5 mg PO BID [facility] PRN Reason: Protocol Last Admin: 08/07/16 10:41 Dose: 2.5 mg Aspirin (Aspirin Chewable) 81 mg PO 0800 [facility] PRN Reason: Protocol Last Admin: 08/07/16 07:59 Dose: 81 mg Atenolol (Tenormin) 12.5 mg PO BID [facility] Last Admin: 08/07/16 10:43 Dose: 12.5 mg Budesonide (Pulmicort Respules) 1 mg IH [id number] [facility] Last Admin: 08/07/16 08:01 Dose: Not Given Diltiazem HCl (Cardizem Cd) 180 mg PO DAILY [facility] Last Admin: 08/07/16 10:40 Dose: 180 mg Furosemide (Lasix) 40 mg PO 0800 [facility] PRN Reason: Protocol Dextrose/Sodium Chloride (Dextrose 5%/0.45% Ns 1000 Ml) 1,000 mls @ 60 mls/hr IV .[id number] [facility] Last Admin: 08/07/16 12:42 Dose: 60 mls/hr Levalbuterol HCl (Xopenex) 1.25 mg IH [id number] PRN PRN Reason: Shortness of Breath Last Admin: 08/04/16 20:48 Dose: 1.25 mg Ondansetron HCl (Zofran Inj) 4 mg IVP Q6H PRN PRN Reason: Nausea/Vomiting Last Admin: 08/07/16 08:06 Dose: 4 mg Pantoprazole Sodium (Protonix Inj) 40 mg IVP 0600 [facility] Potassium Chloride (K-Dur 20 Meq Er Tab) 20 meq PO 0800 [facility] Last Admin: 08/07/16 07:59 Dose: 20 meq Prednisone (Prednisone Tab) 30 mg PO DAILY [facility] Last Admin: 08/07/16 10:41 Dose: 30 mg Tramadol/Acetaminophen (Ultracet 37.5/325 Mg) 1 tab PO Q6H PRN PRN Reason: Pain, Mild (1-3) Physical Exam - Constitutional Appears: Other (complaining of pain in the abdomen) - Head Exam Head Exam: NORMAL INSPECTION - Neck Exam Neck exam: Negative for: Lymphadenopathy, Meningismus - Respiratory Exam Respiratory Exam: Decreased Breath Sounds - Cardiovascular Exam Cardiovascular Exam: +S1, +S2 - GI/Abdominal Exam GI & Abdominal Exam: Soft, Tenderness (diffuse). absent: Distended, Firm, Guarding Results - Vital Signs Recent Vital Signs: Last Vital Signs Temp 98.3 F 08/07/16 10:00 Pulse 72 08/07/16 10:43 Resp 20 08/07/16 10:00 BP 154/80 H 08/07/16 10:43 Pulse Ox 97 08/07/16 10:00 - Labs Result Diagrams: 08/07/16 13:25 08/07/16 07:00 Labs: Laboratory Results - last 24 hr 08/06/16 08/07/16 08/07/16 21:33 04:39 07:00 WBC 63.3 H* D RBC 4.62 Hgb 12.7 Hct 39.8 MCV 86.1 MCH 27.5 MCHC 31.9 RDW 18.4 H Plt Count 395 MPV 11.1 H Gran % 91.3 H Lymph % (Auto) 2.3 L [place] % (Auto) 6.4 H Eos % (Auto) 0.0 L Baso % (Auto) 0.0 Gran # 58.75 H Lymph # 1.5 [place] # 4.1 H Eos # 0.0 Baso # 0.01 Sodium Potassium Chloride Carbon Dioxide Anion Gap BUN Creatinine Est GFR ( Amer) Est GFR (Non-Af Amer) POC Glucose (mg/dL) 207 H 153 H Random Glucose Uric Acid Calcium Total Bilirubin AST ALT Alkaline Phosphatase Total Protein Albumin Globulin Albumin/Globulin Ratio Amylase Lipase 08/07/16 08/07/16 08/07/16 07:00 07:30 11:00 WBC RBC Hgb Hct MCV MCH MCHC RDW Plt Count MPV Gran % Lymph % (Auto) [place] % (Auto) Eos % (Auto) Baso % (Auto) Gran # Lymph # [place] # Eos # Baso # Sodium 136 Potassium 4.3 Chloride 93 L Carbon Dioxide 33 Anion Gap 14 BUN 63 H Creatinine 1.2 Est GFR ( Amer) 51 Est GFR (Non-Af Amer) 42 POC Glucose (mg/dL) Random Glucose 137 H Uric Acid 7.9 H Calcium 8.2 L Total Bilirubin 2.1 H AST 26 ALT 67 H Alkaline Phosphatase 108 Total Protein 6.1 Albumin 3.1 Globulin 3.0 Albumin/Globulin Ratio 1.0 L Amylase 160 H Lipase 41 08/07/16 13:25 WBC 66.4 H* RBC 4.63 Hgb 12.9 Hct 40.1 MCV 86.6 MCH 27.9 MCHC 32.2 RDW 18.8 H Plt Count 429 MPV 11.8 H Gran % Lymph % (Auto) [place] % (Auto) Eos % (Auto) Baso % (Auto) Gran # Lymph # [place] # Eos # Baso # Sodium Potassium Chloride Carbon Dioxide Anion Gap BUN Creatinine Est GFR ( Amer) Est GFR (Non-Af Amer) POC Glucose (mg/dL) Random Glucose Uric Acid Calcium Total Bilirubin AST ALT Alkaline Phosphatase Total Protein Albumin Globulin Albumin/Globulin Ratio Amylase Lipase Assessment & Plan - Assessment and Plan (Free Text) Plan: Assessment Systemic Inflammatory Response Syndrome with marked leukocytosis, consider secondary to colitis and marked constipation R/O Cdiff colitis HTN dyslipidemia S/P cerebrovascular accident chronic atrial fibrillation COPD CHF Plan Will start patient on Merrem, PO Vancomycin and IV Flagyl Follow up GI evaluation Will trend WBC count and monitor clinically
[2016-08-07] MEDS ORDERED: Vancomycin 25 MG/ML PO SCH (19:00)
[2016-08-07] MEDS ORDERED: metroNIDAZOLE IV 500 mg/100 ml 500 MG/100 ML BAG IVPB SCH (22:00)
--- NOTE | 2016-08-08 02:34 | PN ---
DATE: 08/07/2016 ADDENDUM: SUBJECTIVE: This patient was seen and evaluated earlier in TCU and discussed with the nursing staff, Dr. Xavier and also with Dr. Varela, the surgeon. This is an addendum to the GI progress rep ort dictated by Dorothea De Jesus APN. Today, this patient had a totally different clinical picture, comp laining of diffuse abdominal pain. PHYSICAL EXAMINATION: The patient does have significant diffuse tenderness, guarding and also some r ebound. Bowel sounds are sluggish. LABORATORY DATA: Today's white cell count also elevated to 63,000. However, CO2 remains normal. IMPRESSION: The reason for acute abdomen is unclear. PLAN: The patient was earlier requested for CT of the abdomen and pelvis STAT, but is not done yet. There was some delay and I had further discussion with Dr. Xavier. The decision was to send her t o the Emergency Room for further evaluation. The patient would need a surgical consult. Spoke with the Emergency Room physician also. We will continue to closely follow up her care. Thank you very much for allowing us to participate in the care of the patient. Rohan Cavazos MD cc: [id number] TT: 08/08/2016 02:33:49 Confirmation # [id number] Dictation # [id number] rudy
--- NOTE | 2016-09-02 12:42 | DS ---
Please see the note that was dictated on 08/06/2016 for details. The patient was discharged. Tommie Xavier MD cc: [id number] TT: 09/02/2016 12:42:12 pa
== END 2016-08-07 15:15 | disposition short-term general hospital (02) | DRG 190 ==
LOC: TRCU 13:26
PROVIDERS: ADMIT Internal Medicine Nephrology; ATTEND Internal Medicine Nephrology
PROC: F07Z9FZ Gait Training/Functional Ambulation Treatment using Assistive, Adaptive, Supportive or Protective Equipment (ICD-10-PCS; principal; 2016-08-04)
PROC: F07L6YZ Therapeutic Exercise Treatment of Musculoskeletal System - Lower Back / Lower Extremity using Other Equipment (ICD-10-PCS; 2016-08-04)
PROC: F08Z2FZ Grooming/Personal Hygiene Treatment using Assistive, Adaptive, Supportive or Protective Equipment (ICD-10-PCS; 2016-08-06)
PROC: F08Z1FZ Dressing Techniques Treatment using Assistive, Adaptive, Supportive or Protective Equipment (ICD-10-PCS; 2016-08-06)
DX: J44.1 Chronic obstructive pulmonary disease with (acute) exacerbation (principal); I50.23 Acute on chronic systolic (congestive) heart failure; I48.2 Chronic atrial fibrillation; I08.1 Rheumatic disorders of both mitral and tricuspid valves; D64.9 Anemia, unspecified; I11.0 Hypertensive heart disease with heart failure; E78.5 Hyperlipidemia, unspecified; J44.0 Chronic obstructive pulmonary disease with (acute) lower respiratory infection; J20.9 Acute bronchitis, unspecified; K52.9 Noninfective gastroenteritis and colitis, unspecified; R10.0 Acute abdomen; Z86.73 Personal history of transient ischemic attack (TIA), and cerebral infarction without residual deficits; Z79.02 Long term (current) use of antithrombotics/antiplatelets

== ENCOUNTER 2016-08-07 15:15 | Inpatient (IN) | payer MEDICARE, OTHER ==
[2016-08-07] MEDS ORDERED: Sodium Chloride 0.9% 500 ML IV STA (15:35)
[2016-08-07] MEDS ORDERED: Meropenem 1g/NS 100mL IVPB 1 GM/100 ML PIGGYBACK IVPB STA (15:37)
[2016-08-07] MEDS ORDERED: metroNIDAZOLE IV 500 mg/100 ml 500 MG/100 ML BAG IVPB STA (15:38)
--- NOTE | 2016-08-07 15:49 | ED PDOC ---
Arrival/HPI - General Chief Complaint: Abdominal Pain Time Seen by Provider: 08/07/16 15:24 Historian: Patient, Other EM Caveat: Dementia - History of Present Illness Narrative History of Present Illness (Text): 08/07/16 15:27 A 85 year old female, whose past medical history includes chronic atrial fibrillation on Eliquis, hypertension, hyperlipidemia, CVA, and COPD, is sent down to the emergency department from TCU for abdominal pain and an elevated white blood cell count. I spoke with Dr. Cavazos prior to arrival of the patient to the emergency department and he stated when evaluating the patient he was concerned of an acute abdomen and therefore he will send the patient down. HPI and ROS limited due to patient dementia. Despite patient dementia patient was able to give limited history and complains of abdominal pain and vomiting earlier today. PMD: Dr. Xavier GI: Dr. Cavazos Past Medical History - Provider Review Nursing Documentation Reviewed: Yes - Infectious Disease Hx of Infectious Diseases: None - Tetanus Immunization Tetanus Immunization: Unknown - Cardiac Hx Atrial Fibrillation: Yes (Chronic) Hx Congestive Heart Failure: Yes Hx Hypertension: Yes - Pulmonary Hx Chronic Obstructive Pulmonary Disease (COPD): Yes - Neurological HX Cerebrovascular Accident: Yes - HEENT Hx HEENT Disorder: No - Renal Hx Renal Disorder: No - Endocrine/Metabolic Hx Diabetes Mellitus Type 2: Yes - Hematological/Oncological Hx Blood Disorders: Yes Hx AIDS: No Hx Anemia: Yes - Integumentary Hx Dermatological Disorder: No - Musculoskeletal/Rheumatological Hx Falls: Yes - Gastrointestinal Hx Gastrointestinal Disorders: No - Genitourinary/Gynecological Hx Genitourinary Disorders: Yes (UTI) Hx Reproductive Disorders: No - Psychiatric Hx Psychophysiologic Disorder: Yes Hx Anxiety: Yes Hx Substance Use: No - Past Surgical History Past Surgical History: Non-Contributing - Surgical History Hx Joint Replacement: Yes (right hip) - Anesthesia Hx Anesthesia: Yes Hx Anesthesia Reactions: No Hx Malignant Hyperthermia: No - Suicidal Assessment Feels Threatened In Home Enviroment: No Family/Social History - Physician Review Nursing Documentation Reviewed: Yes Family/Social History: Unknown Family HX Smoking Status: Former Smoker Hx Alcohol Use: No Hx Substance Use: No Hx Substance Use Treatment: No Allergies/Home Meds Allergies/Adverse Reactions: Allergies No Known Allergies Allergy (Verified 08/07/16 15:21) Home Medications: Home Meds Medication Instructions Recorded Confirmed Apixaban [Eliquis] 2.5 mg PO BID 06/15/16 08/07/16 [id number] CD [Cardizem CD] 180 mg PO DAILY 06/15/16 08/07/16 ALPRAZolam [Xanax] 0.25 mg PO DAILY 08/07/16 08/07/16 Acetaminophen [Arthritis Pain 650 mg PO Q6 PRN 08/07/16 08/07/16 Reliever] Aspirin [Aspirin Chewable] 81 mg PO DAILY 08/07/16 08/07/16 Atenolol [Tenormin] 12.5 mg PO BID 08/07/16 08/07/16 Budesonide 1 mg IH DAILY 08/07/16 08/07/16 Furosemide [Lasix] 40 mg PO DAILY 08/07/16 08/07/16 Levalbuterol HCl [Levalbuterol] 1.25 mg IH Q6 PRN 08/07/16 08/07/16 Ondansetron [Zofran Inj] 4 mg IVP Q6 PRN 08/07/16 08/07/16 Pantoprazole [Protonix Inj] 40 mg IV DAILY 08/07/16 08/07/16 Potassium Chloride [K-Dur 20] 20 meq PO DAILY 08/07/16 08/07/16 Prednisone [Deltasone] 30 mg PO DAILY 08/07/16 08/07/16 Review of Systems - Review of Systems Systems not reviewed;Unavailable: Dementia Gastrointestinal: Abdominal Pain, Vomiting Physical Exam Vital Signs Reviewed: Yes Vital Signs Temp Pulse Resp BP Pulse Ox 08/07/16 18:30 97 H 17 130/70 96 08/07/16 18:15 98 H 18 126/64 95 08/07/16 18:00 99 H 17 122/67 96 08/07/16 17:50 100 H 18 122/67 95 08/07/16 17:30 103 H 18 122/50 L 96 08/07/16 17:10 105 H 18 118/59 L 96 08/07/16 17:00 100.9 F H 08/07/16 15:51 112 H 18 117/65 97 Blood Pressure: Normal Pulse: Tachycardic Respiratory Rate: Normal Appearance: Positive for: Ill-Appearing Pain Distress: Moderate Mental Status: No: Confused, Agitated, Lethargic - Systems Exam Head: Present: Atraumatic, Normocephalic Pupils: Present: PERRL Conjunctiva: Present: Normal Mouth: Present: Dry Pharnyx: No: ERYTHEMA, EXUDATE Neck: Present: Normal Range of Motion Respiratory/Chest: Present: Clear to Auscultation, Good Air Exchange. No: Respiratory Distress, Accessory Muscle Use Cardiovascular: Present: Normal S1, S2, Tachycardic. No: Murmurs Abdomen: Present: Tenderness (diffuse), Normal Bowel Sounds, Guarding. No: Distention, Peritoneal Signs Back: Present: Normal Inspection Upper Extremity: Present: Normal Inspection. No: Cyanosis, Edema Lower Extremity: Present: Normal Inspection. No: Edema Neurological: Present: GCS=15, CN II-XII Intact, Speech Normal Skin: Present: Warm, Dry, Normal Color. No: Rashes Psychiatric: Present: Alert, Normal Insight, Normal Concentration Medical Decision Making ED Course and Treatment: 08/07/16 15:27 Impression: A 85 year old female with acute abdomen and elevated WBC. Differential Diagnosis include but are not limited to: Ischemic Bowel vs perforated viscus Plan: -- Chest, Abdomen, Pelvis CT -- Chest X-ray -- Labs -- Flagyl, Meropenem, Vancomycin and IV Fluids -- Reassess and disposition Prior Visits: Notes and results from previous visits were reviewed. The patient last presented to the emergency department on 07/28/16 for evaluation of progressively worsening shortness of breath. Patient was later admitted to Telemetry for CHF and bilateral lower extremity cellulitis. Progress Notes: 08/07/16 16:35 CT Chest, Abdomen and Pelvis: Creator : Anselmo Bhardwaj MD COMPARISON: CT of the chest 07/30/2016 LUNGS: Clear. No nodule, mass or consolidation. MEDIASTINUM: Unremarkable. Normal caliber aorta and pulmonary arterial trunk. Normal size heart. LYMPH NODES: Unremarkable. PLEURA: There is a small right-sided pleural effusion with a small amount of adjacent consolidation. This is unchanged BONES: Unremarkable. OTHER FINDINGS: Coronary artery calcifications LIVER: Unremarkable. No gross lesion or ductal dilatation. GALLBLADDER AND BILE DUCTS: Unremarkable. PANCREAS: Unremarkable. No gross lesion or ductal dilatation. SPLEEN: Unremarkable. ADRENALS: Unremarkable. No mass. KIDNEYS AND URETERS: Unremarkable. No hydronephrosis. No solid mass. VASCULATURE: Unremarkable. No aortic aneurysm. BOWEL: There is moderate to severe constipation. Minimal inflammatory changes are seen around the transverse colon. There is also some mild mural thickening in the transverse colon. Findings are consistent with colitis could be related to chronic constipation. There is diverticulosis of the sigmoid colon. APPENDIX: Normal appendix. PERITONEUM: Small amount of ascites. LYMPH NODES: Unremarkable. No enlarged lymph nodes. BLADDER: Unremarkable. REPRODUCTIVE: Unremarkable. BONES: No acute fracture. OTHER FINDINGS: None. IMPRESSION: Severe constipation. Mural thickening and minimal inflammatory changes around the transverse colon consistent with colitis 08/07/16 16:50 Chest X-ray: Creator : Anselmo Bhardwaj MD COMPARISON: 08/01/2016 FINDINGS: LUNGS:Minimal bibasilar infiltrates or atelectasis PLEURA: Small bilateral pleural effusions CARDIOVASCULAR: Mild cardiomegaly OSSEOUS STRUCTURES: No significant abnormalities. VISUALIZED UPPER ABDOMEN: Normal. OTHER FINDINGS: None. IMPRESSION: Small pleural effusions and minimal bibasilar atelectasis or infiltrate 08/07/16 17:42 Patient's history is noted. She is very uncomfortable appearing. Labs from this am are present; patient sent to CT upon immediate evaluation and surgical consult called to see patient. Residents down to see the patient. Dr. Varela was aware of patient, based on discussion with Dr. Cavazos earlier. IV antibiotics ordered. Code Sepsis was called because patient lactate acid is 2.7. Will continue gentle hydration instead of aggressive due to patients history of CHF. Patient's sons are in the ED and are still waiting to decide regarding her 08/07/16 19:20 Dr. Campbell also came to see the patient in the ED and has been accepted by the ICU. Case was discussed with Morenita for admission to her service. - Critical Care Critical Care Minutes: 30 minutes - Lab Interpretations Lab Results: 08/07/16 16:00 Lab Results 08/07/16 16:32: pO2 68 H, VBG pH 7.46 H, VBG pCO2 51.0, VBG HCO3 36.3 H, VBG Total CO2 37.9 H, VBG O2 Sat (Calc) 96.0 H, VBG Base Excess 10.6 H, VBG Potassium 4.1, Glucose 147 H, Lactate 2.7 H, FiO2 21.0, Sodium 135.0, Chloride 97.0 L, Venous Blood Potassium 4.1 08/07/16 16:10: PT 11.7, INR 1.08, APTT 28.5 08/07/16 16:00: Sodium 136, Potassium 4.2, Chloride 91 L, Carbon Dioxide 34 H, Anion Gap 15, BUN 61 H, Creatinine 1.1, Est GFR ( Amer) 57, Est GFR (Non- Af Amer) 47, Random Glucose 140 H, Calcium 8.1 L, Lactate Dehydrogenase 705 H, Total Creatine Kinase 20 L, Troponin I 0.03 D I have reviewed the lab results: Yes - RAD Interpretation Radiology Orders: 08/07/16 15:26 CHEST,ABDOMEN, PELVIS W/O CONT [CT] Stat 08/07/16 15:39 CHEST PORTABLE [RAD] Stat - Medication Orders Current Medication Orders: Acetaminophen (Tylenol 650 Mg Supp) 650 mg RC Q4H PRN PRN Reason: Fever >100.4 F Hydromorphone HCl (Dilaudid) 0.5 mg IVP Q4H PRN PRN Reason: Pain, severe (8-10) Sodium Chloride (Sodium Chloride 0.9%) 500 mls @ 50 mls/hr IV .Q10H STA Stop: 08/08/16 01:34 Last Admin: 08/07/16 16:34 Dose: 50 mls/hr Sodium Chloride (Sodium Chloride 0.9%) 1,000 mls @ 50 mls/hr IV .Q20H ONE Stop: 08/08/16 15:13 Ondansetron HCl (Zofran Inj) 4 mg IVP Q6 PRN PRN Reason: Nausea/Vomiting Discontinued Medications Glycerin (Glycerin Adult Suppository) 1 sup RC ONCE ONE Stop: 08/07/16 19:14 Metronidazole (Flagyl) 500 mg in 100 mls @ 100 mls/hr IVPB STAT STA PRN Reason: Protocol Stop: 08/07/16 16:37 Last Admin: 08/07/16 16:33 Dose: 100 mls/hr Meropenem 1g/NS 100mL IVPB (Meropenem 1g/Ns 100ml Ivpb) 1 gm in 100 mls @ 100 mls/hr IVPB STAT STA PRN Reason: Protocol Stop: 08/07/16 16:36 Last Admin: 08/07/16 18:10 Dose: 100 mls/hr Vancomycin HCl 1 gm/ Sodium (Chloride) 250 mls @ 133.333 mls/hr IV STAT STA PRN Reason: Protocol Stop: 08/07/16 17:30 Sodium Chloride (Sodium Chloride 0.9%) 1,000 mls @ 999 mls/hr IV .Q1H1M STA Stop: 08/07/16 17:37 Last Admin: 08/07/16 18:12 Dose: 999 mls/hr - Scribe Statement The provider has reviewed the documentation as recorded by the Alexey Lopez Provider Scribe Attestation: All medical record entries made by the Alexey were at my direction and personally dictated by me. I have reviewed the chart and agree that the record accurately reflects my personal performance of the history, physical exam, medical decision making, and the department course for this patient. I have also personally directed, reviewed, and agree with the discharge instructions and disposition. Disposition/Present on Arrival - Present on Arrival Any Indicators Present on Arrival: No History of DVT/PE: No History of Uncontrolled Diabetes: No Urinary Catheter: No History of Decub. Ulcer: No History Surgical Site Infection Following: None - Disposition Have Diagnosis and Disposition been Completed?: Yes Diagnosis: Abdominal pain Disposition: HOSPITALIZED Disposition Time: 17:05 Patient Plan: Admission, ICU Patient Problems: Current Active Problems Problem Status Onset Abdominal pain Acute Condition: CRITICAL
--- NOTE | 2016-08-07 16:34 | CT ---
PROCEDURE: CT Chest, Abdomen and Pelvis without intravenous contrast HISTORY: severe leukocytosis, abd pain COMPARISON: CT of the chest 07/30/2016 TECHNIQUE: Radiation dose: Total exam DLP = 1286 mGy-cm. This CT exam was performed using one or more of the following dose reduction techniques: Automated exposure control, adjustment of the mA and/or kV according to patient size, and/or use of iterative reconstruction technique. FINDINGS: CT CHEST WITHOUT CONTRAST: LUNGS: Clear. No nodule, mass or consolidation. MEDIASTINUM: Unremarkable. Normal caliber aorta and pulmonary arterial trunk. Normal size heart. LYMPH NODES: Unremarkable. PLEURA: There is a small right-sided pleural effusion with a small amount of adjacent consolidation. This is unchanged BONES: Unremarkable. OTHER FINDINGS: Coronary artery calcifications CT ABDOMEN AND PELVIS: LIVER: Unremarkable. No gross lesion or ductal dilatation. GALLBLADDER AND BILE DUCTS: Unremarkable. PANCREAS: Unremarkable. No gross lesion or ductal dilatation. SPLEEN: Unremarkable. ADRENALS: Unremarkable. No mass. KIDNEYS AND URETERS: Unremarkable. No hydronephrosis. No solid mass. VASCULATURE: Unremarkable. No aortic aneurysm. BOWEL: There is moderate to severe constipation. Minimal inflammatory changes are seen around the transverse colon. There is also some mild mural thickening in the transverse colon. Findings are consistent with colitis could be related to chronic constipation. There is diverticulosis of the sigmoid colon. APPENDIX: Normal appendix. PERITONEUM: Small amount of ascites. LYMPH NODES: Unremarkable. No enlarged lymph nodes. BLADDER: Unremarkable. REPRODUCTIVE: Unremarkable. BONES: No acute fracture. OTHER FINDINGS: None. IMPRESSION: Severe constipation. Mural thickening and minimal inflammatory changes around the transverse colon consistent with colitis
[2016-08-07 16:36] LABS: VENOUS BLOOD GAS BASE EXCESS 10.6 mmol/L (0.0-2.0); VENOUS BLOOD PH 7.46 (7.32-7.43)
[2016-08-07] MEDS ORDERED: Sodium Chloride 0.9% 1,000 ML IV STA (16:37)
[2016-08-07 16:41] LABS: CALCIUM 8.1 mg/dL (8.4-10.5); POTASSIUM 4.2 mmol/L (3.6-5.0)
--- NOTE | 2016-08-07 16:41 | CP.PCM.CON ---
<Cristi Sanders - Last Filed: 08/07/16 17:07> History of Present Illness - History of Present Illness History of Present Illness: Surgery Consult note. Dr. Varela 85yo F with PMHx including Atrial Fib on Eliquis, HTN, HLD, COPD, previous CVA here for evaluation of abdominal pain. Patient history obtained from family at bedside. Patient had a CVA 3-4 months prior and has been in and out of rehab facilities since. Patient was admitted to the [facility] being treated for COPD/CHF exacerbation when she started having Nausea/Vomiting/and Diarrhea yesterday. She started complaining of severe abdominal pain and was transferred to the ER for further evaluation. She was found to have Leukocytosis 66.4. Surgery team was consulted to evaluate for an acute abdomen. Patient able to give limited history despite dementia. Patient reports an episode of vomit this AM. She states that the pain has been going on since yesterday. No F/C. No Headache. No CP. PMHx: Atrial Fibrillation on Eliquis, HTN, HLD, COPD, CVA PSHx: Right Hip; Denies abdominal surgery Social Hx: Lives with son. Has been in and out of rehab for past 3-4 months following CVA. Previous smoker: 40pack year hx, Quit 25years ago. No ETOH, No illicit drugs NKDA Review of Systems - Review of Systems Systems not reviewed;Unavailable: Dementia All systems: reviewed and no additional remarkable complaints except - Constitutional Constitutional: absent: Chills, Fever - Cardiovascular Cardiovascular: absent: Chest Pain - Gastrointestinal Gastrointestinal: Abdominal Pain, Diarrhea, Nausea, Vomiting Past Patient History - Infectious Disease Hx of Infectious Diseases: None - Tetanus Immunizations Tetanus Immunization: Unknown - Past Medical History & Family History Past Medical History?: Yes - Past Social History Smoking Status: Former Smoker - CARDIAC Hx Atrial Fibrillation: Yes (Chronic) Hx Congestive Heart Failure: Yes Hx Hypertension: Yes - PULMONARY Hx Chronic Obstructive Pulmonary Disease (COPD): Yes - NEUROLOGICAL HX Cerebrovascular Accident: Yes - HEENT Hx HEENT Problems: No - RENAL Hx Chronic Kidney Disease: No - ENDOCRINE/METABOLIC Hx Diabetes Mellitus Type 2: Yes - HEMATOLOGICAL/ONCOLOGICAL Hx Blood Disorders: Yes Hx AIDS: No Hx Anemia: Yes - INTEGUMENTARY Hx Dermatological Problems: No - MUSCULOSKELETAL/RHEUMATOLOGICAL Hx Falls: Yes - GASTROINTESTINAL Hx Gastrointestinal Disorders: No - GENITOURINARY/GYNECOLOGICAL Hx Genitourinary Disorders: Yes (UTI) Hx Reproductive Disorders: No - PSYCHIATRIC Hx Psychophysiologic Disorder: Yes Hx Anxiety: Yes Hx Substance Use: No - SURGICAL HISTORY Hx Joint Replacement: Yes (right hip) - ANESTHESIA Hx Anesthesia: Yes Hx Anesthesia Reactions: No Hx Malignant Hyperthermia: No Meds Allergies/Adverse Reactions: Allergies Allergy/AdvReac Type Severity Reaction Status Date / Time No Known Allergies Allergy Verified 10/27/16 11:55 - Medications Medications: Current Medications Sodium Chloride (Sodium Chloride 0.9%) 500 mls @ 50 mls/hr IV .Q10H STA Stop: 08/08/16 01:34 Metronidazole (Flagyl) 500 mg in 100 mls @ 100 mls/hr IVPB STAT STA PRN Reason: Protocol Stop: 08/07/16 16:37 Meropenem 1g/NS 100mL IVPB (Meropenem 1g/Ns 100ml Ivpb) 1 gm in 100 mls @ 100 mls/hr IVPB STAT STA PRN Reason: Protocol Stop: 08/07/16 16:36 Vancomycin HCl 1 gm/ Sodium (Chloride) 250 mls @ 133.333 mls/hr IV STAT STA PRN Reason: Protocol Stop: 08/07/16 17:30 Physical Exam - Constitutional Appears: In Acute Distress, Chronically Ill - Head Exam Head Exam: ATRAUMATIC, NORMAL INSPECTION, NORMOCEPHALIC - Eye Exam Eye Exam: EOMI, Normal appearance. absent: Scleral icterus - ENT Exam ENT Exam: Mucous Membranes Moist - GI/Abdominal Exam Additional comments: Pain out of proportion to palpation. Patient severely tender to palpation in all quadrants. No palpable masses. Soft, non-distended. - Neurological Exam Neurological exam: Alert - Psychiatric Exam Psychiatric exam: Anxious - Skin Skin Exam: Dry, Intact, Normal Color, Warm Results - Vital Signs Recent Vital Signs: Last Vital Signs Temp Pulse 112 H 08/07/16 15:51 Resp 18 08/07/16 15:51 BP 117/65 08/07/16 15:51 Pulse Ox 97 08/07/16 15:51 - Labs Result Diagrams: 08/07/16 16:00 Assessment & Plan - Assessment and Plan (Free Text) Assessment: 85yo F with PMHx of [place] on Eliquis, HTN, HLD, COPD, CVA here for evaluation of Abdominal pain. - Acute Abdomen. Pain out of proportion to exam - Admit to ICU - CT Abd/Pelvis - Severe constipation. Colonic mural thickening. Possible colitis secondary to chronic constipation. No Free air. - NPO - serial abdominal exams - F/u cultures. Continue Abx - Further recs to follow Will Discuss case with Dr. Avery Sanders PGY1 surgery pager: [phone] <Felix Varela - Last Filed: 11/13/16 23:49> Results - Vital Signs Recent Vital Signs: Last Vital Signs Temp 97.1 F L 08/16/16 12:00 Pulse 92 H 08/16/16 14:57 Resp 20 08/16/16 12:00 BP 105/65 08/16/16 14:57 Pulse Ox 98 08/16/16 05:20 - Labs Result Diagrams: 08/16/16 06:30 08/16/16 06:30 Assessment & Plan - Assessment and Plan (Free Text) Plan: Patient was seen and examined by me. I agree with assessment and plan as per resident's note. - Date & Time Date: 08/07/16 Time: 13:05
--- NOTE | 2016-08-07 16:47 | RAD ---
HISTORY: do upright CXR; abd pain - r/o free air COMPARISON: 08/01/2016 FINDINGS: LUNGS: Minimal bibasilar infiltrates or atelectasis PLEURA: Small bilateral pleural effusions CARDIOVASCULAR: Mild cardiomegaly OSSEOUS STRUCTURES: No significant abnormalities. VISUALIZED UPPER ABDOMEN: Normal. OTHER FINDINGS: None. IMPRESSION: Small pleural effusions and minimal bibasilar atelectasis or infiltrate
[2016-08-07 16:52] LABS: TROPONIN I 0.03 ng/mL
[2016-08-07 17:07] LABS: INR 1.08 (0.93-1.08); PARTIAL THROMBOPLASTIN TIME 28.5 Seconds (23.7-30.8)
[2016-08-07] MEDS ORDERED: Sodium Chloride 0.9% 1,000 ML IV ONE ×3 (19:14→22:42)
[2016-08-07] MEDS: HYDROmorphone 0.5 mg/0.5 ml ISec IVP PRN (20:30)
--- NOTE | 2016-08-07 21:10 | CP.PCM.CON ---
Addendum entered and electronically signed by Kiara Serrano DO 08/07/16 22:45: increased IVF to 125cc/hr, ordered procalcitonin Original Note: <Kiara Serrano - Last Filed: 08/07/16 21:07> History of Present Illness - History of Present Illness History of Present Illness: Critical care consult note for Dr. Tg Serrano, PGY-1 Pt S & E at bedside. Pt w/dementia, history as per EMR. 85 yo F w/PMH sig for chronic afibr, HTN, HLD, CVA, COPD, dementia admitted to ICU for abdominal pain and severe leukocytosis. Pt was in TCU for rehab due to CVA 3-4 mos ago with COPD/CHF exacerbation. As per family- pt started having nausea, vomiting, diarrhea one day [facility]. On day of admission, pt complained of abdominal pain. Pt was being followed by GI while in TCU- today's evaluation was concerning for acute abdomen, pt was sent to ED for work up. Pt found to have severe leukocytosis of 66.4. ROS limited due to dementia. PMH: Chronic afib on Eliquis, CHF, HTN, HLD, CVA, COPD, anemia, DM, hx falls, hx UTIs, hx anxiety, PSH: Right hip repair All: NKDA SH: Former smoker, no reported ETOH or illicit drug use PMD: [facility]: Ramasam Review of Systems - Review of Systems Systems not reviewed;Unavailable: Dementia All systems: reviewed and no additional remarkable complaints except - Gastrointestinal Gastrointestinal: Abdominal Pain, Nausea, Vomiting Past Patient History - Infectious Disease Hx of Infectious Diseases: None - Tetanus Immunizations Tetanus Immunization: Unknown - Past Medical History & Family History Past Medical History?: Yes - Past Social History Smoking Status: Former Smoker - CARDIAC Hx Atrial Fibrillation: Yes (Chronic) Hx Congestive Heart Failure: Yes Hx Hypertension: Yes - PULMONARY Hx Chronic Obstructive Pulmonary Disease (COPD): Yes - NEUROLOGICAL HX Cerebrovascular Accident: Yes - HEENT Hx HEENT Problems: No - RENAL Hx Chronic Kidney Disease: No - ENDOCRINE/METABOLIC Hx Diabetes Mellitus Type 2: Yes - HEMATOLOGICAL/ONCOLOGICAL Hx Blood Disorders: Yes Hx AIDS: No Hx Anemia: Yes - INTEGUMENTARY Hx Dermatological Problems: No - MUSCULOSKELETAL/RHEUMATOLOGICAL Hx Falls: Yes - GASTROINTESTINAL Hx Gastrointestinal Disorders: No - GENITOURINARY/GYNECOLOGICAL Hx Genitourinary Disorders: Yes (UTI) Hx Reproductive Disorders: No - PSYCHIATRIC Hx Psychophysiologic Disorder: Yes Hx Anxiety: Yes Hx Substance Use: No - SURGICAL HISTORY Hx Joint Replacement: Yes (right hip) - ANESTHESIA Hx Anesthesia: Yes Hx Anesthesia Reactions: No Hx Malignant Hyperthermia: No Meds Allergies/Adverse Reactions: Allergies Allergy/AdvReac Type Severity Reaction Status Date / Time No Known Allergies Allergy Verified 08/07/16 15:21 - Medications Medications: Current Medications Acetaminophen (Tylenol 650 Mg Supp) 650 mg RC Q4H PRN PRN Reason: Fever >100.4 F Hydromorphone HCl (Dilaudid) 0.5 mg IVP Q4H PRN PRN Reason: Pain, severe (8-10) Last Admin: 08/07/16 20:30 Dose: 0.5 mg Sodium Chloride (Sodium Chloride 0.9%) 1,000 mls @ 75 mls/hr IV .[id number] ONE Stop: 08/08/16 08:33 Ciprofloxacin (Cipro 400mg/200ml Dsw) 400 mg in 200 mls @ 133.3 mls/hr IVPB Q12 TARSHA PRN Reason: Protocol Stop: 08/07/16 23:31 Metronidazole (Flagyl) 500 mg in 100 mls @ 100 mls/hr IVPB Q8 TARSHA PRN Reason: Protocol Ondansetron HCl (Zofran Inj) 4 mg IVP Q6 PRN PRN Reason: Nausea/Vomiting Pantoprazole Sodium (Protonix Inj) 40 mg IV DAILY TARSHA Physical Exam - Constitutional Appears: Toxic - Head Exam Head Exam: ATRAUMATIC, NORMAL INSPECTION, NORMOCEPHALIC - Eye Exam Eye Exam: EOMI, Normal appearance, PERRL Pupil Exam: NORMAL ACCOMODATION, PERRL - ENT Exam ENT Exam: Mucous Membranes Dry, Normal Exam - Neck Exam Neck exam: Positive for: Normal Inspection. Negative for: Tenderness - Respiratory Exam Respiratory Exam: Clear to Auscultation Bilateral, NORMAL BREATHING PATTERN - Cardiovascular Exam Cardiovascular Exam: REGULAR RHYTHM - GI/Abdominal Exam GI & Abdominal Exam: Diminished Bowel Sounds, Distended, Firm, Guarding, Hypoactive Bowel Sounds, Tenderness (diffuse). absent: Hernia, Rebound - Extremities Exam Extremities exam: Positive for: normal inspection. Negative for: pedal edema, tenderness - Neurological Exam Additional comments: demented - Psychiatric Exam Psychiatric exam: Normal Affect, Normal Mood - Skin Skin Exam: Dry, Intact, Normal Color, Pallor, Warm Results - Vital Signs Recent Vital Signs: Last Vital Signs Temp 100.9 F H 08/07/16 17:00 Pulse 97 H 08/07/16 18:30 Resp 17 08/07/16 18:30 BP 130/70 08/07/16 18:30 Pulse Ox 96 08/07/16 18:30 - Labs Result Diagrams: 08/07/16 16:00 Assessment & Plan - Assessment and Plan (Free Text) Assessment: 85 yo Female with diffuse abdominal pain due to mesenteric ischemia admitted to ICU for an acute abdomen, possible severe sepsis, and severe leukocytosis. Plan: Neuro hx Dementia Hx CVA no agitation stable HOB to 30 degrees Cardio Hx HTN, HLD BP 130/70 HR 92 CK 20 Trop 1- 0.03 Monitor Pulm O2 via NC PRN Target SaO2 >94% SaO2 95% VBG pH 7.46, pO2 68, pCO2 36.3, HCO3 36.3 CXR w/Small pleural effusions and minimal bibasilar atelectasis or infiltrate Monitor Renal Pt clinically dry Metabolic alkalosis BUN 61 Cr 1.1 NS@75 I/O's GI NPO Abdominal pain LDH 705 amylase 160 lipase 41 Diluadid 0.5mg Q4H PRN Tylenol 650mg RC Q4H PRN Zofran 4mg Q6H PRN Constipated Glycerin suppository x [address] ab/pelvis w/Severe constipation. Mural thickening and minimal inflammatory changes around the transverse colon consistent with colitis Surgery consulted- Avery- recmyrna for Glycerin suppository, monitor with serial abdominal exams, FU cultures, cont Abx GI consulted- [facility] End[facility] Hx DM Accuchecks Q6H ISS Q6H Blood sugar Target euglycemia currently NPO Monitor I/O's Garcia in place Monitor ID Febrile Tmax 100.9 leukocytosis 66.4 from 63.3 Lactate 2.7 SIRS, possible sepsis Started Cipro 400mg Q12H Started Flagyl 500mg Q8H FU C diff FU Blood cx FU stool cx FU urine cx FU stool ova & parasite FU VBG shock panel ID consulted- Leighann Heme Hx anemia Hgb 12.9 Hct 40.1 INR 1.08 FU FOB Musculosketal Fall precautions GI/DVT ppx SCDs Protonix Dispo Admit to ICu QS Q4H PO care Q4H DW attending - Date & Time Date: 08/07/16 Time: 08:30 <Rufino Colmenares MD - Last Filed: 08/12/16 08:08> Meds - Medications Medications: Current Medications Acetaminophen (Tylenol 650 Mg Supp) 650 mg RC Q4H PRN PRN Reason: Fever >100.4 F Budesonide (Pulmicort Respules) 0.5 mg IH [id number] [facility] Last Admin: 08/11/16 21:31 Dose: 0.5 mg Docusate Sodium (Colace) 100 mg PO BID [facility] Last Admin: 08/11/16 17:30 Dose: 100 mg Metronidazole (Flagyl) 500 mg in 100 mls @ 100 mls/hr IVPB Q8 TARSHA PRN Reason: Protocol Last Admin: 08/12/16 06:16 Dose: 100 mls/hr Ampicillin 2 gm/ Sodium (Chloride) 100 mls @ 200 mls/hr IVPB Q6 [facility] PRN Reason: Protocol Stop: 09/07/16 18:01 Last Admin: 08/12/16 06:18 Dose: 200 mls/hr Ceftriaxone Sodium (Rocephin 2 Gm Ivpb) 2 gm in 100 mls @ 100 mls/hr IVPB DAILY [facility] PRN Reason: Protocol Stop: 09/08/16 10:01 Last Admin: 08/11/16 10:06 Dose: 100 mls/hr Levalbuterol HCl (Xopenex) 0.63 mg IH [id number] [facility] Last Admin: 08/12/16 02:15 Dose: Not Given Levalbuterol HCl (Xopenex) 0.63 mg IH Q2 PRN PRN Reason: Shortness of Breath Levalbuterol HCl (Xopenex) 0.63 mg IH [id number] [facility] Ondansetron HCl (Zofran Inj) 4 mg IVP Q6 PRN PRN Reason: Nausea/Vomiting Pantoprazole Sodium (Protonix Inj) 40 mg IV DAILY [facility] Last Admin: 08/11/16 10:05 Dose: 40 mg Polyethylene Glycol (Miralax) 17 gm PO BID [facility] Last Admin: 08/11/16 17:30 Dose: Not Given Vancomycin HCl (Vancocin 25 Mg/Ml (Oral Use)) 500 mg PO QID [facility]AR[facility] PRN Reason: Protocol Last Admin: 08/11/16 22:21 Dose: 500 mg Results - Vital Signs Recent Vital Signs: Last Vital Signs Temp 97.8 F 08/12/16 07:30 Pulse 76 08/12/16 07:30 Resp 20 08/12/16 07:30 BP 112/72 08/12/16 07:30 Pulse Ox 95 08/12/16 07:30 - Labs Result Diagrams: 08/11/16 08:00 08/11/16 08:00 Labs: Laboratory Results - last 24 hr 08/11/16 08/11/16 08/11/16 08:00 08:00 15:25 WBC 18.7 H RBC 3.35 L Hgb 9.0 L Hct 29.3 L MCV 87.5 MCH 26.9 MCHC 30.7 L RDW 18.9 H Plt Count 220 MPV 11.5 H pCO2 30 L pO2 69.0 L HCO3 23.4 ABG pH 7.50 H ABG Total CO2 24.3 ABG O2 Saturation 97.4 ABG Base Excess 1.1 ABG Potassium 3.2 L Glucose 142 H Lactate 2.1 FiO2 32.0 Sodium 138 138.0 Potassium 3.2 L Chloride 109 H 114.0 H Carbon Dioxide 26 Anion Gap 6 L BUN 16 Creatinine 0.6 Est GFR ( Amer) > 60 Est GFR (Non-Af Amer) > 60 Random Glucose 92 Calcium 7.4 L Total Bilirubin 1.4 H AST 24 ALT 38 Alkaline Phosphatase 77 Troponin I NT-Pro-B Natriuret Pep Total Protein 4.7 L Albumin 2.1 L Globulin 2.5 Albumin/Globulin Ratio 0.8 L Arterial Blood Potassium 3.2 L 08/11/16 08/11/16 15:30 16:00 WBC RBC Hgb Hct MCV MCH MCHC RDW Plt Count MPV pCO2 pO2 HCO3 ABG pH ABG Total CO2 ABG O2 Saturation ABG Base Excess ABG Potassium Glucose Lactate FiO2 Sodium Potassium Chloride Carbon Dioxide Anion Gap BUN Creatinine Est GFR ( Amer) Est GFR (Non-Af Amer) Random Glucose Calcium Total Bilirubin AST ALT Alkaline Phosphatase Troponin I 0.02 D NT-Pro-B Natriuret Pep 5760 H Total Protein Albumin Globulin Albumin/Globulin Ratio Arterial Blood Potassium Attending/Attestation - Attestation I have personally seen and examined this patient.: Yes I have fully participated in the care of the patient.: Yes I have reviewed all pertinent clinical information: Yes Notes (Text): 08/12/16 08:06 -I agree with the above consult H&P completed by the resident physician -Briefly, the patient is an 85 year old woman being admitted with sepsis presumably due to mesenteric ischemia versus infectious diarrhea and/or colitis. General surgery is on board and she has been started on empiric broad spectrum IV antibiotics.
[2016-08-07] MEDS ORDERED: Ciprofloxacin 400mg/200ml D5W 400 MG/200 ML BAG IVPB SCH (22:00)
[2016-08-07 22:05] LABS: VENOUS BLOOD GAS BASE EXCESS 8.2 mmol/L (0.0-2.0); VENOUS BLOOD PH 7.38 (7.32-7.43)
[2016-08-07 22:11] VITALS: BMI 28.3
[2016-08-07] MEDS: metroNIDAZOLE IV 500 mg/100 ml 500 MG/100 ML BAG IVPB SCH (22:34)
[2016-08-08] MEDS: metroNIDAZOLE IV 500 mg/100 ml 500 MG/100 ML BAG IVPB SCH ×3 (05:31→21:44)
[2016-08-08] MEDS: HYDROmorphone 0.5 mg/0.5 ml ISec IVP PRN ×3 (05:43→22:03)
[2016-08-08 05:56] LABS: HEMATOCRIT 38.5 % (36.0-48.0); MEAN CELL VOLUME 87.7 fL (80.0-105.0); MEAN CORPUSCULAR HEMOGLOBIN 26.9 pg (25.0-35.0); MEAN CORPUSCULAR HGB CONC 30.6 g/dl (31.0-37.0); MEAN PLATELET VOLUME 11.1 fl (7.0-11.0); PLATELET COUNT 285 10^3/uL (120.0-450.0); RED CELL DISTRIBUTION WIDTH 18.8 % (11.5-14.5)
[2016-08-08 06:04] LABS: PARTIAL THROMBOPLASTIN TIME 29.2 Seconds (23.7-30.8)
[2016-08-08 06:12] LABS: ALB/GLOB RATIO 0.9 (1.1-1.8); ALKALINE PHOSPHATASE 91 U/L (38-133); ALT/SGPT 47 U/L (7-56); AST/SGOT 22 U/L (15-39); BILIRUBIN,TOTAL 1.7 mg/dL (0.2-1.3); BLOOD UREA NITROGEN 52 mg/dL (7-21); CALCIUM 7.6 mg/dL (8.4-10.5); CARBON DIOXIDE 33 mmol/L (21-33); CHLORIDE 97 mmol/L (95-110); GFR AFRICAN-AMERICAN > 60; GLUCOSE,RANDOM 104 mg/dL (70-110); POTASSIUM 3.9 mmol/L (3.6-5.0); SODIUM 139 mmol/L (132-148); TOTAL PROTEIN 5.4 g/dL (5.8-8.3)
[2016-08-08 06:14] LABS: ADD MANUAL DIFF? YES
[2016-08-08 06:15] LABS: WHITE BLOOD COUNT 48.7 10^3/ul (4.5-11.0)
[2016-08-08] MEDS ORDERED: Levalbuterol 0.63 MG/3 ML Inhal Soln UD IH PRN (07:06)
[2016-08-08 07:10] LABS: ANISOCYTOSIS 1+; BAND 9 % (0-2); NEUTROPHIL 88 % (50.0-70.0); PLATELET ESTIMATE NORMAL (NORMAL)
[2016-08-08] MEDS: Vancomycin 25 MG/ML PO SCH ×4 (09:36→21:45)
[2016-08-08] MEDS: Meropenem 1g/NS 100mL IVPB 1 GM/100 ML PIGGYBACK IVPB SCH ×2 (09:37→21:44)
[2016-08-08 10:02] LABS: VENOUS BLOOD GAS BASE EXCESS 6.5 mmol/L (0.0-2.0); VENOUS BLOOD PH 7.35 (7.32-7.43)
--- NOTE | 2016-08-08 10:04 | PN ---
DATE: 08/08/2016(630am--705am) SUBJECTIVE: The patient appears comfortable this morning. She is not short of breath at rest. PHYSICAL EXAMINATION: VITAL SIGNS: Temperature is 97.9, pulse on the monitor 92, respiratory rate 18/ 20, blood pressure 119/54. Oxygen saturation on nasal cannula is 95%. HEENT: Normocephalic, atraumatic. No JVD. CARDIOVASCULAR: Systolic ejection murmur at the lower left sternal border. No S3 gallop. LUNGS: Decreased breath sounds at the bases. Very minimal rhonchi. No wheezing. EXTREMITIES: No clubbing, cyanosis, or edema. Calves are nontender to palpation. GASTROINTESTINAL: Abdomen is soft. It is mildly distended and mildly tender to palpation. Bowel sounds are decreased. SKIN: No acute rash. NEUROLOGIC: Limited at the present time. PERTINENT LABORATORY DATA: CAT scan of the chest, abdomen and pelvis was done yesterday and reviewed. There are no acute lung findings noted. There is severe constipation. There is also mural thickening and minimal inflammatory changes around the transverse colon consistent with colitis. IMPRESSION: 1. Constipation. Colitis. 2. Sepsis syndrome. 3. Chronic obstructive pulmonary disease. 4. Congestive heart failure. 5. Atrial fibrillation. PLAN: The patient is currently in the ICU. I did discuss the case with the ICU nurse at length. Apparently, the patient was transferred to the Emergency Room yesterday - because of abdominal pain and distention. The patient also had a low-grade fever yesterday - 100.9. In addition, laboratory evaluation revealed a significant leukocytosis. I did review the CAT scan - as above. Severe constipation with colitis is noted. There are no acute lung findings. GI and surgical evaluations are noted. Repeat a.m. labs are pending. On physical exam, there is no significant bronchospasm noted. In addition, there is no significant alveolar arterial gradient. I will continue the patient on nebulizer treatments and inhaled steroids for now. The steroids were being weaned(on TCU), and I will hold off on restarting them at the present time. Clinical status of the patient is guarded at this point in time. I will discuss the above with the entire ICU team in the next few moments. I will also discuss the above with Dr. Xavier later this morning. Anastacio Gamez MD cc: [id number] TT: 08/08/2016 10:03:17 Confirmation # [id number] Dictation # [id number] mn [id number]
--- NOTE | 2016-08-08 10:58 | HP ---
CHIEF COMPLAINT AND HISTORY OF PRESENT ILLNESS: This is an 85-year-old female who has a past medical history of atrial fibrillation, on Eliquis; hypertension, dyslipidemia, COPD. She was on the transi tional care unit, doing well, and started having nausea and vomiting. Her abdominal exam was found t o be abnormal. She also had a significantly elevated white count. She was seen by Dr. Cavazos. Sh duane was transferred to the ER for further evaluation. She is confused. She is not able to give a hist ory. She had been on transitional care unit for rehab. She has no complaints of any headaches or di zziness. No nausea. ALLERGIES: No known drug allergies. HOME MEDICATIONS: Eliquis, Cardizem, Xanax, Lasix, Zofran. PAST MEDICAL HISTORY: 1. Hypertension. 2. Atrial fibrillation. 3. Dyslipidemia. 4. COPD. 5. CVA. SOCIAL HISTORY: She was a heavy smoker. She denies smoking anymore. She denies alcohol use. PHYSICAL EXAMINATION: VITAL SIGNS: Temperature is 97.9, pulse of 103, blood pressure is 119/54, O2 saturation ____%. GENERAL: Patient lying in bed, flat, and in no apparent distress. HEAD AND NECK EXAM: Atraumatic, normocephalic. Conjunctivae are pink. Throat clear and mouth with moist mucosa. Oropharynx benign. EYES: Extraocular movements are intact. PERRLA. NECK: Supple. No JVD, thyromegaly, or adenopathy. No bruits. HEART: S1 and S2 regular rate and rhythm. No murmurs, rubs, or gallops. LUNGS: Clear to auscultation bilaterally. No wheezing rales or rhonchi appreciated. No retraction s on exam. ABDOMEN: Soft, nontender, nondistended. Bowel sounds are positive in all quadrants. No rebound. No hepatosplenomegaly. EXTREMITIES: No cyanosis, clubbing, or edema. NEURO: She can move all 4 extremities. Power is 5/5 but limited exam. PSYCH: The patient denies any hallucinations. : No CVA tenderness VASCULAR: 2+ pulses in carotid and pedal pulses. SKIN: No erythema or abnormal nodules noted. SPINE: Normal curvature. LYMPHADENOPATHY: No anterior cervical or posterior cervical adenopathy. No inguinal adenopathy. LABORATORY DATA: Shows a white count of 48.7 which is improved. The rest of the lab was reviewed. Chemistry shows a creatinine of 1.0. CT of the abdomen and pelvis was reviewed. There is constipation and signs of colitis. Chest x-ray done shows small pleural effusion and minimal bibasilar atelectasis. ASSESSMENT: 1. Colitis. 2. Sepsis. PLAN: The patient is currently in the ICU. She is critically ill. Her white count is slowly improv ing. She is getting ice chips. Family was spoken to yesterday by staff; I am not sure exactly who. She is on Protonix IV. She is getting vancomycin. She is on Xopenex. She is on Flagyl. Will cont inue to follow her closely. Repeat her blood work tomorrow. Tommie Xavier MD cc: [id number] TT: 08/08/2016 10:57:28 rudy
--- NOTE | 2016-08-08 11:49 | CON ---
DATE: 08/08/2016 Seen and examined at the bedside this morning in CCU. REQUEST FOR CONSULT: For colitis and elevated WBC count. HISTORY OF PRESENT ILLNESS: This is an 85-year-old female who was being followed in TCU for complaints of vomiting, initially consulted for complaint of nausea and episode of vomiting as well as abdominal pain which was mainly in the epigastric area. She was in TCU for rehab. She was being treated for acute COPD and CHF. Yesterday in TCU, the patient was having diffuse abdominal tenderness with guarding and rebound and also had a WBC count at 63,000. The patient was sent to the Emergency Room for further evaluation, rule out for acute abdomen. Rule out any possible peritonitis. The patient had a CT scan of chest, abdomen and pelvis done which was reporting moderate to severe constipation and inflammatory changes in the transverse colon as well as mild mural thickening in the transverse colon. Possibly, the colitis could be related to the chronic constipation. The patient had surgical evaluation and was started on IV antibiotics. This morning in the CCU, the patient is awake and alert. She was given a glycerin suppository last night, but was only reported to have a smear of stool. No reports of any bleeding, overt GI bleed. She denies any nausea, but still having pain, reports 10/10. Initially, the patient's ceftriaxone and azithromycin were discontinued which were thought to may be causing the nausea and vomiting. PAST MEDICAL HISTORY: Chronic atrial fibrillation, on Eliquis; hypertension, dyslipidemia, COPD, status post CVA, CHF. PAST SURGICAL HISTORY: Right hip surgery. No history of abdominal surgery. FAMILY HISTORY: Noncontributory at this time. SOCIAL HISTORY: The patient was a former smoker. Denies ETOH or substance abuse. The patient lives with her son. ALLERGIES: No known drug allergies. MEDICATIONS: Reviewed as per JUN. REVIEW OF SYSTEMS: Systems were reviewed with positive findings, see HPI. VITAL SIGNS: Temperature is 98, blood pressure is 105/72, pulse rate 95, respirations 17, 95 O2 saturation nasal cannula. LABORATORY DATA: WBC is 48.7. This is trending down compared to yesterday's at 66.4. Her H and H is 11.8 and 38.5, platelets are 285. PT is 10.8, INR is 1.00, PTT is 29.2. Her sodium is 139, K is 3.9, BUN 52, creatinine is 1.0. The total bilirubin is 1.7, AST 22, ALT 47, alkaline phosphatase is 91. Urine culture is pending and blood culture is pending. RADIOLOGY: Chest x-ray was done which shows small pleural effusions and minimal bibasilar atelectasis or infiltrate. CT scan of chest, abdomen and pelvis without oral contrast was done. The lungs are clear, no nodule, mass or consolidation. There is right-sided pleural effusion with a small amount of adjacent consolidation. This is unchanged. Liver, gallbladder, pancreas and spleen are unremarkable. The bowel shows moderate to severe constipation. Minimal inflammatory changes are seen around the transverse colon. There is some mild mural thickening of the transverse colon. Findings consistent with colitis, could be related to chronic constipation. There is diverticulosis of the sigmoid colon. PHYSICAL EXAMINATION: HEENT: Sclerae are anicteric. NECK: Supple. CARDIAC: S1, S2. LUNGS: With decreased breath sounds, but good air entry. No rales or wheeze. ABDOMEN: With bowel sounds a little hypoactive, does not appear distended. Still having diffuse tenderness with some minimal guarding now and rebound. No palpable mass. ASSESSMENT: This is an 85-year-old female with a history of hypertension, hyperlipidemia, chronic obstructive pulmonary disease, atrial fibrillation on Eliquis and was transferred out of TCU for acute abdomen. The patient status post CT scan noting transverse colonic mural thickening, possible colitis, also noted to have constipation, Sepsis, unknown etiology, r/o cdiff. PLAN: The patient has been started on IV antibiotics. She is on meropenem, Flagyl and oral vancomycin. The patient had a glycerin suppository, only had a smear of stool. Pending stool culture, C. diff and O and P. Her leukocytosis, her WBC level is down today. She is getting Dilaudid for pain. Continue GI prophylaxis. She is on Protonix 40 IV. For now, she is n.p.o. She is still having increased pain with some minimal rebound and guarding. Continue IV fluids for hydration as per ICU team. We will continue to follow closely. The patient was seen and case discussed with Dr. Cavazos. Dorothea LAZO cc: [id number] TT: 08/08/2016 11:48:32 Confirmation # [id number] Dictation # [id number] tn MTDD
[2016-08-08] MEDS: Budesonide 0.5 mg/2 ml Inhal Susp UD IH SCH ×2 (12:48→21:02)
[2016-08-08] MEDS: Levalbuterol 0.63 MG/3 ML Inhal Soln UD IH SCH ×2 (12:48→21:02)
[2016-08-08] MEDS: Sodium Chloride 0.9% 1,000 ML IV SCH ×2 (14:15→22:12)
--- NOTE | 2016-08-08 14:39 | CP.PCM.CON ---
History of Present Illness - History of Present Illness History of Present Illness: 85 year old female with PMH of HTN, dyslipidemia, S/P cerebrovascular accident, chronic atrial fibrillation, COPD, CHF was initially admitted in [facility] because of acute exacerbation of COPD. She was transferred to [facility], but she suddenly developed marked leukocytosis and complaining of abdominal pain and discomfort. There is no note of diarrhea, no vomiting, no loss of consciousness, no convulsions. The patient still does not want to cooperate or is very uncomfortable to cooperate in terms of review of systems. Thomas-CT scan revealed transverse colon colitis. Infectious Diseases consult is requested to further evaluate and manage. Review of Systems - Review of Systems Systems not reviewed;Unavailable: Uncooperative Past Patient History - Infectious Disease Hx of Infectious Diseases: None - Tetanus Immunizations Tetanus Immunization: Unknown - Past Medical History & Family History Past Medical History?: Yes - Past Social History Smoking Status: Former Smoker - CARDIAC Hx Atrial Fibrillation: Yes (Chronic) Hx Congestive Heart Failure: Yes Hx Hypertension: Yes - PULMONARY Hx Chronic Obstructive Pulmonary Disease (COPD): Yes - NEUROLOGICAL HX Cerebrovascular Accident: Yes - HEENT Hx HEENT Problems: No - RENAL Hx Chronic Kidney Disease: No - ENDOCRINE/METABOLIC Hx Diabetes Mellitus Type 2: Yes - HEMATOLOGICAL/ONCOLOGICAL Hx Blood Disorders: Yes Hx AIDS: No Hx Anemia: Yes - INTEGUMENTARY Hx Dermatological Problems: No - MUSCULOSKELETAL/RHEUMATOLOGICAL Hx Falls: Yes - GASTROINTESTINAL Hx Gastrointestinal Disorders: No - GENITOURINARY/GYNECOLOGICAL Hx Genitourinary Disorders: Yes (UTI) Hx Reproductive Disorders: No - PSYCHIATRIC Hx Psychophysiologic Disorder: Yes Hx Anxiety: Yes Hx Substance Use: No - SURGICAL HISTORY Hx Joint Replacement: Yes (right hip) - ANESTHESIA Hx Anesthesia: Yes Hx Anesthesia Reactions: No Hx Malignant Hyperthermia: No Meds Allergies/Adverse Reactions: Allergies Allergy/AdvReac Type Severity Reaction Status Date / Time No Known Allergies Allergy Verified 08/07/16 15:21 - Medications Medications: Current Medications Acetaminophen (Tylenol 650 Mg Supp) 650 mg RC Q4H PRN PRN Reason: Fever >100.4 F Hydromorphone HCl (Dilaudid) 0.5 mg IVP Q4H PRN PRN Reason: Pain, severe (8-10) Last Admin: 08/08/16 05:43 Dose: 0.5 mg Metronidazole (Flagyl) 500 mg in 100 mls @ 100 mls/hr IVPB Q8 [facility] PRN Reason: Protocol Last Admin: 08/08/16 05:31 Dose: 100 mls/hr Meropenem 1g/NS 100mL IVPB (Meropenem 1g/Ns 100ml Ivpb) 1 gm in 100 mls @ 100 mls/hr IVPB Q12 [facility] PRN Reason: Protocol Stop: 08/15/16 10:01 Ondansetron HCl (Zofran Inj) 4 mg IVP Q6 PRN PRN Reason: Nausea/Vomiting Pantoprazole Sodium (Protonix Inj) 40 mg IV DAILY [facility] Vancomycin HCl (Vancocin 25 Mg/Ml (Oral Use)) 500 mg PO QID [facility] PRN Reason: Protocol Physical Exam - Constitutional Appears: Other (in pain) - Head Exam Head Exam: NORMAL INSPECTION - ENT Exam ENT Exam: Mucous Membranes Moist - Neck Exam Neck exam: Negative for: Lymphadenopathy, Meningismus - Respiratory Exam Respiratory Exam: Decreased Breath Sounds - Cardiovascular Exam Cardiovascular Exam: Tachycardia, +S1, +S2 - GI/Abdominal Exam GI & Abdominal Exam: Guarding, Soft, Tenderness (diffuse). absent: Diminished Bowel Sounds, Organomegaly, Rebound, Rigid Results - Vital Signs Recent Vital Signs: Last Vital Signs Temp 97.9 F 08/08/16 00:00 Pulse 103 H 08/08/16 05:30 Resp 50 H 08/08/16 05:30 BP 119/54 L 08/08/16 05:00 Pulse Ox 93 L 08/08/16 05:30 - Labs Result Diagrams: 08/08/16 05:30 08/08/16 05:30 Labs: Laboratory Results - last 24 hr 08/07/16 08/08/16 08/08/16 21:54 05:30 05:30 WBC 48.7 H* D RBC 4.39 Hgb 11.8 L Hct 38.5 MCV 87.7 MCH 26.9 MCHC 30.6 L RDW 18.8 H Plt Count 285 MPV 11.1 H PT 10.8 INR 1.00 APTT 29.2 pO2 28 L VBG pH 7.38 VBG pCO2 60.0 VBG HCO3 35.5 H VBG Total CO2 37.3 H VBG O2 Sat (Calc) 47.9 VBG Base Excess 8.2 H VBG Potassium 4.4 Sodium 138.0 Chloride 103.0 Glucose 140 H Lactate 2.9 H FiO2 21.0 Venous Blood Potassium 4.4 Assessment & Plan - Assessment and Plan (Free Text) Plan: Assessment severe sepsis with acute renal failuresecondary to colitis and marked constipation, with C.diff. colitis; there is also gram positive cocci bacteremia source to be determined HTN dyslipidemia S/P cerebrovascular accident chronic atrial fibrillation COPD CHF Plan continue Merrem, PO Vancomycin and IV Flagyl and will add Daptomycin and will repeat blood cx tomorrow morning Follow up GI evaluation Will trend WBC count and monitor clinically
[2016-08-08] MEDS ORDERED: DAPTOmycin 500 mg Inj (Cubicin) IV SCH (14:45)
--- NOTE | 2016-08-08 16:08 | CP.CCUPN ---
<Chemo Jaime - Last Filed: 08/08/16 16:50> CCU Subjective - Physician Review Subjective (Free Text): Pt seen and examined at bedside. Pt doing well overnight with no acute events. Pt complaining of intermittent abdominal pain. Pt has not had a bowel movement yesterday or overnight. Denies CP, SOB, N/V/D. CCU Objective - Vital Signs / Intake & Output Intake and Output (Last 8hrs): Intake & Output 08/08/16 08/08/16 08/08/16 06:59 14:59 22:59 Intake Total 1850 Output Total 1300 Balance 550 Intake: IV 1200 Right Hand 1200 Other 650 Output: Urine 1300 Urethral (Garcia) 1300 Other: Voiding Method Indwelling Catheter # Bowel Movements 1 - Physical Exam Head: Positive for: Atraumatic, Normocephalic Pupils: Positive for: PERRL Extroacular Muscles: Positive for: EOMI Conjunctiva: Positive for: Normal Mouth: Positive for: Dry Pharnyx: Negative for: ERYTHEMA, EXUDATE Neck: Positive for: Normal Range of Motion Respiratory/Chest: Positive for: Clear to Auscultation, Good Air Exchange. Negative for: Respiratory Distress, Accessory Muscle Use Cardiovascular: Positive for: Normal S1, S2, Tachycardic. Negative for: Murmurs Abdomen: Positive for: Tenderness (diffuse), Normal Bowel Sounds, Guarding. Negative for: Distention, Peritoneal Signs Back: Positive for: Normal Inspection Upper Extremity: Positive for: Normal Inspection. Negative for: Cyanosis, Edema Lower Extremity: Positive for: Normal Inspection. Negative for: Edema Neurological: Positive for: GCS=15, CN II-XII Intact, Speech Normal Skin: Positive for: Warm, Dry, Normal Color. Negative for: Rashes Psychiatric: Positive for: Alert, Normal Insight, Normal Concentration - Medications Active Medications: Active Medications Generic Name Dose Route Start Last Admin Trade Name Freq PRN Reason Stop Dose Admin Acetaminophen 650 mg 08/07/16 18:58 Tylenol 650 Mg Supp RC Q4H PRN Fever >100.4 F Budesonide 0.5 mg 08/08/16 08:00 08/08/16 12:48 Pulmicort Respules IH 0.5 mg [id number] TARSHA Administration Hydromorphone HCl 0.5 mg 08/07/16 19:04 08/08/16 11:43 Dilaudid IVP 0.5 mg Q4H PRN Administration Pain, severe (8-10) Metronidazole 500 mg in 100 mls @ 100 mls/hr 08/07/16 22:00 08/08/16 13:17 Flagyl IVPB 100 mls/hr Q8 TARSHA Administration Protocol Meropenem 1g/NS 100mL IVPB 1 gm in 100 mls @ 100 mls/hr 08/08/16 10:00 09:37 Meropenem 1g/Ns 100ml Ivpb IVPB 08/15/16 10:01 100 mls/hr Q12 TARSHA Administration Protocol Sodium Chloride 1,000 mls @ 125 mls/hr 08/08/16 14:15 Sodium Chloride 0.9% IV .Q8H TARSHA Daptomycin 450 mg/ Sodium 100 mls @ 200 mls/hr 08/08/16 15:00 Chloride IV 08/15/16 15:01 Q24H TARSHA Levalbuterol HCl 0.63 mg 08/08/16 08:00 08/08/16 12:48 Xopenex IH 0.63 mg [id number] TARSHA Administration Levalbuterol HCl 0.63 mg 08/08/16 07:06 Xopenex IH Q2 PRN Shortness of Breath Ondansetron HCl 4 mg 08/07/16 18:58 Zofran Inj IVP Q6 PRN Nausea/Vomiting Pantoprazole Sodium 40 mg 08/08/16 10:00 08/08/16 09:38 Protonix Inj IV 40 mg DAILY TARSHA Administration Vancomycin HCl 500 mg 08/08/16 10:00 08/08/16 13:18 Vancocin 25 Mg/Ml (Oral Use) PO 500 mg QID TARSHA Administration Protocol - Patient Studies Lab Studies: Microbiology Studies 08/08/16 10:00 C. difficile Antigen & Toxin A,B (M - Final Stool 08/07/16 17:40 Urine Culture - Final Urine,Clean Catch Gram Positive Cocci Lab Studies 08/08/16 08/08/16 08/08/16 Range/Units 09:30 05:30 05:30 WBC (4.5-11.0) 10^3/ul RBC (3.5-6.1) 10^6/uL Hgb (12.0-16.0) gm/dL Hct (36.0-48.0) % MCV (80.0-105.0) fL MCH (25.0-35.0) pg MCHC (31.0-37.0) g/dl RDW (11.5-14.5) % Plt Count (120.0-450.0) 10^3/uL MPV (7.0-11.0) fl Neutrophils % (Manual) (50.0-70.0) % Band Neutrophils % (0-2) % Lymphocytes % (Manual) Monocytes % (Manual) (1.0-6.0) % Platelet Evaluation (NORMAL) Anisocytosis (manual) PT 10.8 (9.9-11.8) Seconds INR 1.00 (0.93-1.08) APTT 29.2 (23.7-30.8) Seconds pO2 39 (30-55) mm/Hg VBG pH 7.35 (7.32-7.43) VBG pCO2 62.0 H (40-60) VBG HCO3 34.2 H (21-28) mmol/l VBG Total CO2 36.1 H (22-28) mmol.L VBG O2 Sat (Calc) 73.6 H (40-65) % VBG Base Excess 6.5 H (0.0-2.0) mmol/L VBG Potassium 4.1 (3.6-5.2) mmol/L Sodium 139.0 (132-148) mmol/L Chloride 106.0 (98-107) mmol/L Glucose 111 H (65-105) mg/dl Lactate 2.7 H (0.7-2.1) mmol/L FiO2 21.0 % Potassium (3.6-5.0) mmol/L Carbon Dioxide (21-33) mmol/L Anion Gap (10-20) BUN (7-21) mg/dL Creatinine (0.5-1.4) mg/dL Est GFR ( Amer) Est GFR (Non-Af Amer) Random Glucose (70-110) mg/dL Calcium (8.4-10.5) mg/dL Total Bilirubin (0.2-1.3) mg/dL AST (15-39) U/L ALT (7-56) U/L Alkaline Phosphatase (38-133) U/L Total Protein (5.8-8.3) g/dL Albumin (3.0-4.8) g/dL Globulin gm/dL Albumin/Globulin Ratio (1.1-1.8) Procalcitonin 2.66 H (0.19-0.49) NG/ML Venous Blood Potassium 4.1 (3.6-5.2) mmol/L 08/08/16 08/08/16 08/07/16 Range/Units 05:30 05:30 21:54 WBC 48.7 H* D (4.5-11.0) 10^3/ul RBC 4.39 (3.5-6.1) 10^6/uL Hgb 11.8 L (12.0-16.0) gm/dL Hct 38.5 (36.0-48.0) % MCV 87.7 (80.0-105.0) fL MCH 26.9 (25.0-35.0) pg MCHC 30.6 L (31.0-37.0) g/dl RDW 18.8 H (11.5-14.5) % Plt Count 285 (120.0-450.0) 10^3/uL MPV 11.1 H (7.0-11.0) fl Neutrophils % (Manual) 88 H (50.0-70.0) % Band Neutrophils % 9 H (0-2) % Lymphocytes % (Manual) TEST NOT PERFORMED Monocytes % (Manual) 3 (1.0-6.0) % Platelet Evaluation Normal (NORMAL) Anisocytosis (manual) 1+ PT (9.9-11.8) Seconds INR (0.93-1.08) APTT (23.7-30.8) Seconds pO2 28 L (30-55) mm/Hg VBG pH 7.38 (7.32-7.43) VBG pCO2 60.0 (40-60) VBG HCO3 35.5 H (21-28) mmol/l VBG Total CO2 37.3 H (22-28) mmol.L VBG O2 Sat (Calc) 47.9 (40-65) % VBG Base Excess 8.2 H (0.0-2.0) mmol/L VBG Potassium 4.4 (3.6-5.2) mmol/L Sodium 139 138.0 (132-148) mmol/L Chloride 97 103.0 (98-107) mmol/L Glucose 140 H (65-105) mg/dl Lactate 2.9 H (0.7-2.1) mmol/L FiO2 21.0 % Potassium 3.9 (3.6-5.0) mmol/L Carbon Dioxide 33 (21-33) mmol/L Anion Gap 13 (10-20) BUN 52 H (7-21) mg/dL Creatinine 1.0 (0.5-1.4) mg/dL Est GFR ( Amer) > 60 Est GFR (Non-Af Amer) 52 Random Glucose 104 (70-110) mg/dL Calcium 7.6 L (8.4-10.5) mg/dL Total Bilirubin 1.7 H (0.2-1.3) mg/dL AST 22 (15-39) U/L ALT 47 (7-56) U/L Alkaline Phosphatase 91 (38-133) U/L Total Protein 5.4 L (5.8-8.3) g/dL Albumin 2.6 L (3.0-4.8) g/dL Globulin 2.8 gm/dL Albumin/Globulin Ratio 0.9 L (1.1-1.8) Procalcitonin (0.19-0.49) NG/ML Venous Blood Potassium 4.4 (3.6-5.2) mmol/L Laboratory Results - last 24 hr 08/07/16 08/08/16 08/08/16 21:54 05:30 05:30 WBC 48.7 H* D RBC 4.39 Hgb 11.8 L Hct 38.5 MCV 87.7 MCH 26.9 MCHC 30.6 L RDW 18.8 H Plt Count 285 MPV 11.1 H Neutrophils % (Manual) 88 H Band Neutrophils % 9 H Lymphocytes % (Manual) TEST NOT PERFORMED Monocytes % (Manual) 3 Platelet Evaluation Normal Anisocytosis (manual) 1+ PT INR APTT pO2 28 L VBG pH 7.38 VBG pCO2 60.0 VBG HCO3 35.5 H VBG Total CO2 37.3 H VBG O2 Sat (Calc) 47.9 VBG Base Excess 8.2 H VBG Potassium 4.4 Sodium 138.0 139 Chloride 103.0 97 Glucose 140 H Lactate 2.9 H FiO2 21.0 Potassium 3.9 Carbon Dioxide 33 Anion Gap 13 BUN 52 H Creatinine 1.0 Est GFR ( Amer) > 60 Est GFR (Non-Af Amer) 52 Random Glucose 104 Calcium 7.6 L Total Bilirubin 1.7 H AST 22 ALT 47 Alkaline Phosphatase 91 Total Protein 5.4 L Albumin 2.6 L Globulin 2.8 Albumin/Globulin Ratio 0.9 L Procalcitonin Venous Blood Potassium 4.4 08/08/16 08/08/16 08/08/16 05:30 05:30 09:30 WBC RBC Hgb Hct MCV MCH MCHC RDW Plt Count MPV Neutrophils % (Manual) Band Neutrophils % Lymphocytes % (Manual) Monocytes % (Manual) Platelet Evaluation Anisocytosis (manual) PT 10.8 INR 1.00 APTT 29.2 pO2 39 VBG pH 7.35 VBG pCO2 62.0 H VBG HCO3 34.2 H VBG Total CO2 36.1 H VBG O2 Sat (Calc) 73.6 H VBG Base Excess 6.5 H VBG Potassium 4.1 Sodium 139.0 Chloride 106.0 Glucose 111 H Lactate 2.7 H FiO2 21.0 Potassium Carbon Dioxide Anion Gap BUN Creatinine Est GFR ( Amer) Est GFR (Non-Af Amer) Random Glucose Calcium Total Bilirubin AST ALT Alkaline Phosphatase Total Protein Albumin Globulin Albumin/Globulin Ratio Procalcitonin 2.66 H Venous Blood Potassium 4.1 Critical Care Progress Note - Nutrition Nutrition: Nutrition Category Date Time Status NPO Diet [DIET] Diets 08/07/16 Dinner Ordered Assessment/Plan - Assessment and Plan (Free Text) Plan: 85 y/o F with PMH of A-fib, COPD, dyslpidemia, and HTN presents with severe sepsis secondary to c. diff colitis. Pt will continue on oral vancomycin, IV merrem, daptoymycin and flagyl. Pt will undergo an enema to help with constipation. Awaiting surgery recommendations with new findings of C. diff colitis. Continue to monitor in ICU at this time. Neuro: AAOx3 Monitor mental status Cardio: Hemodynamically stable Maintain map >65 Pulm: Respiratory O2 sat 90% On Nasal cannula Pulmonology, Dr. Gamez following GI: C. diff colitis. Antigen positive, toxin negative Continue abx Enema ordered for constipation as per surgery Surgery following Endo Maintain euglycemia Goal glucose levels between 140-180 Nephro: Replenish electrolytes as needed Maintain euvolemia Maintain adequate urine output Heme/ID: Afebrile, Leukocytosis improved Urine and Blood cultures positive for gram positive cocci Continue Daptomycin, Vancomycin, Flagyl, and Merrem Maintain normothermia PPX: Protonix SCDs Seen, reviewed, and discussed with attending Yeni, PGY-1 <Aiyana COOPER,Ranjeet H - Last Filed: 08/08/16 17:27> CCU Objective - Vital Signs / Intake & Output Vital Signs (Last 4 hours): Vital Signs Temp Pulse Resp BP Pulse Ox 08/08/16 16:30 116 H 17 90 L 08/08/16 16:21 115 H 20 08/08/16 16:20 115 H 23 08/08/16 16:19 122 H 25 H 08/08/16 16:18 126 H 28 H 08/08/16 16:17 115 H 24 08/08/16 16:16 104 H 23 08/08/16 16:15 111 H 19 08/08/16 16:14 117 H 20 08/08/16 16:13 121 H 20 08/08/16 16:12 121 H 21 08/08/16 16:11 124 H 20 08/08/16 16:10 116 H 26 H 08/08/16 16:09 98 H 25 H 08/08/16 16:08 120 H 54 H 08/08/16 16:07 111 H 67 H 08/08/16 16:00 98.1 F 114 H 24 141/74 75 L 08/08/16 15:30 111 H 15 91 L 08/08/16 15:00 102 H 16 122/44 L 90 L 08/08/16 14:30 111 H 16 89 L 08/08/16 14:00 101 H 23 118/58 L 93 L 08/08/16 13:30 109 H 15 91 L Intake and Output (Last 8hrs): Intake & Output 08/08/16 08/08/16 08/08/16 06:59 14:59 22:59 Intake Total 1850 Output Total 1300 Balance 550 Intake: IV 1200 Right Hand 1200 Other 650 Output: Urine 1300 Urethral (Garcia) 1300 Other: Voiding Method Indwelling Catheter # Bowel Movements 1 - Medications Active Medications: Active Medications Generic Name Dose Route Start Last Admin Trade Name Freq PRN Reason Stop Dose Admin Acetaminophen 650 mg 08/07/16 18:58 Tylenol 650 Mg Supp RC Q4H PRN Fever >100.4 F Budesonide 0.5 mg 08/08/16 08:00 08/08/16 12:48 Pulmicort Respules IH 0.5 mg [id number] TARSHA Administration Hydromorphone HCl 0.5 mg 08/07/16 19:04 08/08/16 11:43 Dilaudid IVP 0.5 mg Q4H PRN Administration Pain, severe (8-10) Metronidazole 500 mg in 100 mls @ 100 mls/hr 08/07/16 22:00 08/08/16 13:17 Flagyl IVPB 100 mls/hr Q8 TARSHA Administration Protocol Meropenem 1g/NS 100mL IVPB 1 gm in 100 mls @ 100 mls/hr 08/08/16 10:00 09:37 Meropenem 1g/Ns 100ml Ivpb IVPB 08/15/16 10:01 100 mls/hr Q12 TARSHA Administration Protocol Sodium Chloride 1,000 mls @ 125 mls/hr 08/08/16 14:15 08/08/16 14:15 Sodium Chloride 0.9% IV 125 mls/hr .Q8H TARSHA Administration Daptomycin 450 mg/ Sodium 100 mls @ 200 mls/hr 08/08/16 15:00 08/08/16 16:45 Chloride IV 08/15/16 15:01 200 mls/hr Q24H TARSHA Administration Levalbuterol HCl 0.63 mg 08/08/16 08:00 08/08/16 12:48 Xopenex IH 0.63 mg [id number] TARSHA Administration Levalbuterol HCl 0.63 mg 08/08/16 07:06 Xopenex IH Q2 PRN Shortness of Breath Ondansetron HCl 4 mg 08/07/16 18:58 Zofran Inj IVP Q6 PRN Nausea/Vomiting Pantoprazole Sodium 40 mg 08/08/16 10:00 08/08/16 09:38 Protonix Inj IV 40 mg DAILY TARSHA Administration Vancomycin HCl 500 mg 08/08/16 10:00 08/08/16 13:18 Vancocin 25 Mg/Ml (Oral Use) PO 500 mg QID TARSHA Administration Protocol - Patient Studies Lab Studies: Microbiology Studies 08/08/16 10:00 C. difficile Antigen & Toxin A,B (M - Final Stool 08/07/16 17:40 Urine Culture - Final Urine,Clean Catch Gram Positive Cocci Lab Studies 08/08/16 08/08/16 08/08/16 Range/Units 16:29 16:29 09:30 WBC (4.5-11.0) 10^3/ul RBC (3.5-6.1) 10^6/uL Hgb (12.0-16.0) gm/dL Hct (36.0-48.0) % MCV (80.0-105.0) fL MCH (25.0-35.0) pg MCHC (31.0-37.0) g/dl RDW (11.5-14.5) % Plt Count (120.0-450.0) 10^3/uL MPV (7.0-11.0) fl Neutrophils % (Manual) (50.0-70.0) % Band Neutrophils % (0-2) % Lymphocytes % (Manual) Monocytes % (Manual) (1.0-6.0) % Platelet Evaluation (NORMAL) Anisocytosis (manual) PT (9.9-11.8) Seconds INR (0.93-1.08) APTT (23.7-30.8) Seconds pO2 27 L 39 (30-55) mm/Hg VBG pH 7.38 7.35 (7.32-7.43) VBG pCO2 55.0 62.0 H (40-60) VBG HCO3 32.5 H 34.2 H (21-28) mmol/l VBG Total CO2 34.2 H 36.1 H (22-28) mmol.L VBG O2 Sat (Calc) 50.6 73.6 H (40-65) % VBG Base Excess 5.8 H 6.5 H (0.0-2.0) mmol/L VBG Potassium 4.0 4.1 (3.6-5.2) mmol/L Sodium 141.0 139.0 (132-148) mmol/L Chloride 106.0 106.0 (98-107) mmol/L Glucose 132 H 111 H (65-105) mg/dl Lactate 2.9 H 2.7 H (0.7-2.1) mmol/L FiO2 21.0 21.0 % Potassium (3.6-5.0) mmol/L Carbon Dioxide (21-33) mmol/L Anion Gap (10-20) BUN (7-21) mg/dL Creatinine (0.5-1.4) mg/dL Est GFR ( Amer) Est GFR (Non-Af Amer) Random Glucose (70-110) mg/dL Calcium (8.4-10.5) mg/dL Total Bilirubin (0.2-1.3) mg/dL AST (15-39) U/L ALT (7-56) U/L Alkaline Phosphatase (38-133) U/L Total Creatine Kinase < 20 L (35-230) U/L Total Protein (5.8-8.3) g/dL Albumin (3.0-4.8) g/dL Globulin gm/dL Albumin/Globulin Ratio (1.1-1.8) Procalcitonin (0.19-0.49) NG/ML Venous Blood Potassium 4.0 4.1 (3.6-5.2) mmol/L 08/08/16 08/08/16 08/08/16 Range/Units 05:30 05:30 05:30 WBC (4.5-11.0) 10^3/ul RBC (3.5-6.1) 10^6/uL Hgb (12.0-16.0) gm/dL Hct (36.0-48.0) % MCV (80.0-105.0) fL MCH (25.0-35.0) pg MCHC (31.0-37.0) g/dl RDW (11.5-14.5) % Plt Count (120.0-450.0) 10^3/uL MPV (7.0-11.0) fl Neutrophils % (Manual) (50.0-70.0) % Band Neutrophils % (0-2) % Lymphocytes % (Manual) Monocytes % (Manual) (1.0-6.0) % Platelet Evaluation (NORMAL) Anisocytosis (manual) PT 10.8 (9.9-11.8) Seconds INR 1.00 (0.93-1.08) APTT 29.2 (23.7-30.8) Seconds pO2 (30-55) mm/Hg VBG pH (7.32-7.43) VBG pCO2 (40-60) VBG HCO3 (21-28) mmol/l VBG Total CO2 (22-28) mmol.L VBG O2 Sat (Calc) (40-65) % VBG Base Excess (0.0-2.0) mmol/L VBG Potassium (3.6-5.2) mmol/L Sodium 139 (132-148) mmol/L Chloride 97 (98-107) mmol/L Glucose (65-105) mg/dl Lactate (0.7-2.1) mmol/L FiO2 % Potassium 3.9 (3.6-5.0) mmol/L Carbon Dioxide 33 (21-33) mmol/L Anion Gap 13 (10-20) BUN 52 H (7-21) mg/dL Creatinine 1.0 (0.5-1.4) mg/dL Est GFR ( Amer) > 60 Est GFR (Non-Af Amer) 52 Random Glucose 104 (70-110) mg/dL Calcium 7.6 L (8.4-10.5) mg/dL Total Bilirubin 1.7 H (0.2-1.3) mg/dL AST 22 (15-39) U/L ALT 47 (7-56) U/L Alkaline Phosphatase 91 (38-133) U/L Total Creatine Kinase (35-230) U/L Total Protein 5.4 L (5.8-8.3) g/dL Albumin 2.6 L (3.0-4.8) g/dL Globulin 2.8 gm/dL Albumin/Globulin Ratio 0.9 L (1.1-1.8) Procalcitonin 2.66 H (0.19-0.49) NG/ML Venous Blood Potassium (3.6-5.2) mmol/L 08/08/16 08/07/16 Range/Units 05:30 21:54 WBC 48.7 H* D (4.5-11.0) 10^3/ul RBC 4.39 (3.5-6.1) 10^6/uL Hgb 11.8 L (12.0-16.0) gm/dL Hct 38.5 (36.0-48.0) % MCV 87.7 (80.0-105.0) fL MCH 26.9 (25.0-35.0) pg MCHC 30.6 L (31.0-37.0) g/dl RDW 18.8 H (11.5-14.5) % Plt Count 285 (120.0-450.0) 10^3/uL MPV 11.1 H (7.0-11.0) fl Neutrophils % (Manual) 88 H (50.0-70.0) % Band Neutrophils % 9 H (0-2) % Lymphocytes % (Manual) TEST NOT PERFORMED Monocytes % (Manual) 3 (1.0-6.0) % Platelet Evaluation Normal (NORMAL) Anisocytosis (manual) 1+ PT (9.9-11.8) Seconds INR (0.93-1.08) APTT (23.7-30.8) Seconds pO2 28 L (30-55) mm/Hg VBG pH 7.38 (7.32-7.43) VBG pCO2 60.0 (40-60) VBG HCO3 35.5 H (21-28) mmol/l VBG Total CO2 37.3 H (22-28) mmol.L VBG O2 Sat (Calc) 47.9 (40-65) % VBG Base Excess 8.2 H (0.0-2.0) mmol/L VBG Potassium 4.4 (3.6-5.2) mmol/L Sodium 138.0 (132-148) mmol/L Chloride 103.0 (98-107) mmol/L Glucose 140 H (65-105) mg/dl Lactate 2.9 H (0.7-2.1) mmol/L FiO2 21.0 % Potassium (3.6-5.0) mmol/L Carbon Dioxide (21-33) mmol/L Anion Gap (10-20) BUN (7-21) mg/dL Creatinine (0.5-1.4) mg/dL Est GFR ( Amer) Est GFR (Non-Af Amer) Random Glucose (70-110) mg/dL Calcium (8.4-10.5) mg/dL Total Bilirubin (0.2-1.3) mg/dL AST (15-39) U/L ALT (7-56) U/L Alkaline Phosphatase (38-133) U/L Total Creatine Kinase (35-230) U/L Total Protein (5.8-8.3) g/dL Albumin (3.0-4.8) g/dL Globulin gm/dL Albumin/Globulin Ratio (1.1-1.8) Procalcitonin (0.19-0.49) NG/ML Venous Blood Potassium 4.4 (3.6-5.2) mmol/L Laboratory Results - last 24 hr 08/07/16 08/08/16 08/08/16 21:54 05:30 05:30 WBC 48.7 H* D RBC 4.39 Hgb 11.8 L Hct 38.5 MCV 87.7 MCH 26.9 MCHC 30.6 L RDW 18.8 H Plt Count 285 MPV 11.1 H Neutrophils % (Manual) 88 H Band Neutrophils % 9 H Lymphocytes % (Manual) TEST NOT PERFORMED Monocytes % (Manual) 3 Platelet Evaluation Normal Anisocytosis (manual) 1+ PT INR APTT pO2 28 L VBG pH 7.38 VBG pCO2 60.0 VBG HCO3 35.5 H VBG Total CO2 37.3 H VBG O2 Sat (Calc) 47.9 VBG Base Excess 8.2 H VBG Potassium 4.4 Sodium 138.0 139 Chloride 103.0 97 Glucose 140 H Lactate 2.9 H FiO2 21.0 Potassium 3.9 Carbon Dioxide 33 Anion Gap 13 BUN 52 H Creatinine 1.0 Est GFR ( Amer) > 60 Est GFR (Non-Af Amer) 52 Random Glucose 104 Calcium 7.6 L Total Bilirubin 1.7 H AST 22 ALT 47 Alkaline Phosphatase 91 Total Creatine Kinase Total Protein 5.4 L Albumin 2.6 L Globulin 2.8 Albumin/Globulin Ratio 0.9 L Procalcitonin Venous Blood Potassium 4.4 08/08/16 08/08/16 08/08/16 05:30 05:30 09:30 WBC RBC Hgb Hct MCV MCH MCHC RDW Plt Count MPV Neutrophils % (Manual) Band Neutrophils % Lymphocytes % (Manual) Monocytes % (Manual) Platelet Evaluation Anisocytosis (manual) PT 10.8 INR 1.00 APTT 29.2 pO2 39 VBG pH 7.35 VBG pCO2 62.0 H VBG HCO3 34.2 H VBG Total CO2 36.1 H VBG O2 Sat (Calc) 73.6 H VBG Base Excess 6.5 H VBG Potassium 4.1 Sodium 139.0 Chloride 106.0 Glucose 111 H Lactate 2.7 H FiO2 21.0 Potassium Carbon Dioxide Anion Gap BUN Creatinine Est GFR ( Amer) Est GFR (Non-Af Amer) Random Glucose Calcium Total Bilirubin AST ALT Alkaline Phosphatase Total Creatine Kinase Total Protein Albumin Globulin Albumin/Globulin Ratio Procalcitonin 2.66 H Venous Blood Potassium 4.1 08/08/16 08/08/16 16:29 16:29 WBC RBC Hgb Hct MCV MCH MCHC RDW Plt Count MPV Neutrophils % (Manual) Band Neutrophils % Lymphocytes % (Manual) Monocytes % (Manual) Platelet Evaluation Anisocytosis (manual) PT INR APTT pO2 27 L VBG pH 7.38 VBG pCO2 55.0 VBG HCO3 32.5 H VBG Total CO2 34.2 H VBG O2 Sat (Calc) 50.6 VBG Base Excess 5.8 H VBG Potassium 4.0 Sodium 141.0 Chloride 106.0 Glucose 132 H Lactate 2.9 H FiO2 21.0 Potassium Carbon Dioxide Anion Gap BUN Creatinine Est GFR ( Amer) Est GFR (Non-Af Amer) Random Glucose Calcium Total Bilirubin AST ALT Alkaline Phosphatase Total Creatine Kinase < 20 L Total Protein Albumin Globulin Albumin/Globulin Ratio Procalcitonin Venous Blood Potassium 4.0 Critical Care Progress Note - Nutrition Nutrition: Nutrition Category Date Time Status NPO Diet [DIET] Diets 08/07/16 Dinner Ordered Attending/Attestation - Attestation I have personally seen and examined this patient.: Yes I have fully participated in the care of the patient.: Yes I have reviewed all pertinent clinical information: Yes Notes (Text): 08/08/16 17:25 85 y/o F w/ elevated WBC Acute abd pain Collitis on CT C.Diff antigen + Gram + cocci blood On ABX w/ treatment from Gram + and c. diff . Daptomycin started as well. Surgical team on board for need of O.R for exploration for ischemic bowel or acute abdomen. BP stable, on R.A Will need ECHO for Gram + cocci r/o Endocarditis , NIKOLAI I.D following Poor prognosis cc tiem 65 min
[2016-08-08 16:36] LABS: VENOUS BLOOD GAS BASE EXCESS 5.8 mmol/L (0.0-2.0); VENOUS BLOOD PH 7.38 (7.32-7.43)
--- NOTE | 2016-08-08 17:40 | CP.PCM.PN ---
<Ramiro Chowdhury - Last Filed: 08/08/16 17:37> Subjective - Date & Time of Evaluation Date of Evaluation: 08/08/16 Time of Evaluation: 17:37 - Subjective Subjective: Surgery: Dr. Varela Pt seen and examined. Per nursing no acute events over night. Pt continues to have abd pain. She denies nausea and vomiting. No BM. Objective - Vital Signs/Intake and Output Vital Signs (last 24 hours): Temp Pulse Resp BP Pulse Ox 98.1 F 116 H 17 141/74 90 L 08/08/16 16:00 08/08/16 16:30 08/08/16 16:30 08/08/16 16:00 08/08/16 16:30 Intake and Output: 08/08/16 08/08/16 06:59 18:59 Intake Total 1850 Output Total 1300 Balance 550 - Medications Medications: Current Medications Acetaminophen (Tylenol 650 Mg Supp) 650 mg RC Q4H PRN PRN Reason: Fever >100.4 F Budesonide (Pulmicort Respules) 0.5 mg IH [id number] [facility] Last Admin: 08/08/16 12:48 Dose: 0.5 mg Hydromorphone HCl (Dilaudid) 0.5 mg IVP Q4H PRN PRN Reason: Pain, severe (8-10) Last Admin: 08/08/16 11:43 Dose: 0.5 mg Metronidazole (Flagyl) 500 mg in 100 mls @ 100 mls/hr IVPB Q8 TARSHA PRN Reason: Protocol Last Admin: 08/08/16 13:17 Dose: 100 mls/hr Meropenem 1g/NS 100mL IVPB (Meropenem 1g/Ns 100ml Ivpb) 1 gm in 100 mls @ 100 mls/hr IVPB Q12 TARSHA PRN Reason: Protocol Stop: 08/15/16 10:01 Last Admin: 08/08/16 09:37 Dose: 100 mls/hr Sodium Chloride (Sodium Chloride 0.9%) 1,000 mls @ 125 mls/hr IV .Q8H [facility] Last Admin: 08/08/16 14:15 Dose: 125 mls/hr Daptomycin 450 mg/ Sodium (Chloride) 100 mls @ 200 mls/hr IV Q24H [facility] Stop: 08/15/16 15:01 Last Admin: 08/08/16 16:45 Dose: 200 mls/hr Levalbuterol HCl (Xopenex) 0.63 mg IH [id number] [facility] Last Admin: 08/08/16 12:48 Dose: 0.63 mg Levalbuterol HCl (Xopenex) 0.63 mg IH Q2 PRN PRN Reason: Shortness of Breath Ondansetron HCl (Zofran Inj) 4 mg IVP Q6 PRN PRN Reason: Nausea/Vomiting Pantoprazole Sodium (Protonix Inj) 40 mg IV DAILY [facility] Last Admin: 08/08/16 09:38 Dose: 40 mg Vancomycin HCl (Vancocin 25 Mg/Ml (Oral Use)) 500 mg PO QID TARSHA PRN Reason: Protocol Last Admin: 08/08/16 13:18 Dose: 500 mg - Labs Labs: 08/08/16 05:30 08/08/16 05:30 PT 10.8 Seconds (9.9-11.8) 08/08/16 05:30 INR 1.00 (0.93-1.08) 08/08/16 05:30 APTT 29.2 Seconds (23.7-30.8) 08/08/16 05:30 - Constitutional Appears: Other (uncomfortable) - Head Exam Head Exam: ATRAUMATIC, NORMOCEPHALIC - Eye Exam Eye Exam: EOMI. absent: Scleral icterus - ENT Exam ENT Exam: Mucous Membranes Moist - Neck Exam Neck Exam: Full ROM - Respiratory Exam Respiratory Exam: NORMAL BREATHING PATTERN. absent: Accessory Muscle Use, Respiratory Distress - Cardiovascular Exam Cardiovascular Exam: Tachycardia - GI/Abdominal Exam GI & Abdominal Exam: Distended (mild), Firm (mild), Tenderness, Rebound. absent : Guarding, Rigid, Soft - Rectal Exam Rectal Exam: Fecal Impaction Additional comments: soft stool, unable to disimpact - Extremities Exam Extremities Exam: absent: Calf Tenderness, Pedal Edema - Neurological Exam Neurological Exam: Alert, Awake - Psychiatric Exam Psychiatric exam: Normal Affect, Normal Mood Assessment and Plan - Assessment and Plan (Free Text) Assessment: 85F w. C. Diff colitis and constipation -wbc improving, c/w abx -maintain NPO w. ice chips -IVF -strict Is:Os -Serial abd exams -Monitor bowel fxn -Glycerin suppository overnight unsuccessful -Manual disimpaction at bedside unsuccessful -will attempt glycerin suppository again, if unsuccessful, recommend tap water enema -AXR ordered f/u results -will follow closely -d/w attending [place] PGY2 <Felix Varela - Last Filed: 11/13/16 23:50> Objective - Vital Signs/Intake and Output Vital Signs (last 24 hours): Temp Pulse Resp BP Pulse Ox 97.1 F L 92 H 20 105/65 98 08/16/16 12:00 08/16/16 14:57 08/16/16 12:00 08/16/16 14:57 08/16/16 05:20 - Labs Labs: 08/16/16 06:30 08/16/16 06:30 PT 10.8 Seconds (9.9-11.8) 08/08/16 05:30 INR 1.00 (0.93-1.08) 08/08/16 05:30 APTT 29.2 Seconds (23.7-30.8) 08/08/16 05:30 Assessment and Plan - Assessment and Plan (Free Text) Plan: Patient was seen and examined by me. I agree with assessment and plan as per resident's note.
--- NOTE | 2016-08-08 19:01 | CARD ---
APPROVED REPORT EKG Measurement Heart [id number] <Conclusion> Poor data quality, interpretation may be adversely affected Atrial fibrillation with premature ventricular or aberrantly conducted complexes Nonspecific ST and T wave abnormality, probably digitalis effect Abnormal ECG
--- NOTE | 2016-08-08 21:43 | PN ---
DATE: 08/08/2016 This patient was seen and evaluated earlier. The patient appears to be slightly better than zandra sánchez. Still has complaints of diffuse abdominal pain. She has a diffuse tenderness present and mild gu arding present. White cell count has come down to 48.7. The urine culture: Gram-positive cocci and also blood culture also showed a gram-positive cocci and stool for C. diff was positive antigen. Th e CT was again reviewed. Diffuse stool present throughout the colon. Some mild thickening in the tr ansverse colon of the thickening noticed. The patient did have glycerin suppositories, only wi th minimal stool. The patient is on daptomycin, Flagyl, meropenem and p.o. vancomycin. Rectal gentle enema is being co nsidered by the surgeon. The patient is clearly septic with a positive blood culture and C. difficil e positive. Continue the antibiotics. Continue to closely follow up care and suggest further manage ment based on the clinical course. Rohan Cavazos MD cc: [id number] TT: 08/08/2016 21:43:35 Confirmation # [id number] Dictation # [id number] mn
[2016-08-08 22:15] LABS: VENOUS BLOOD GAS BASE EXCESS 5.7 mmol/L (0.0-2.0); VENOUS BLOOD PH 7.39 (7.32-7.43)
[2016-08-08] MEDS: diltiaZEM IVPB 100mg in NS 100 ML IV PRN (23:23)
[2016-08-09] MEDS: Levalbuterol 0.63 MG/3 ML Inhal Soln UD IH SCH ×4 (04:15→22:51)
[2016-08-09 04:24] LABS: VENOUS BLOOD GAS BASE EXCESS 4.5 mmol/L (0.0-2.0)
[2016-08-09 04:29] LABS: HEMATOCRIT 33.2 % (36.0-48.0); MEAN CELL VOLUME 88.5 fL (80.0-105.0); MEAN CORPUSCULAR HEMOGLOBIN 26.7 pg (25.0-35.0); MEAN CORPUSCULAR HGB CONC 30.1 g/dl (31.0-37.0); MEAN PLATELET VOLUME 10.9 fl (7.0-11.0); PLATELET COUNT 246 10^3/uL (120.0-450.0); RED CELL DISTRIBUTION WIDTH 19.1 % (11.5-14.5)
[2016-08-09 04:41] LABS: ALB/GLOB RATIO 0.9 (1.1-1.8); ALKALINE PHOSPHATASE 82 U/L (38-133); ALT/SGPT 39 U/L (7-56); AST/SGOT 18 U/L (15-39); BILIRUBIN,TOTAL 1.3 mg/dL (0.2-1.3); BLOOD UREA NITROGEN 40 mg/dL (7-21); CALCIUM 7.3 mg/dL (8.4-10.5); CARBON DIOXIDE 31 mmol/L (21-33); CHLORIDE 105 mmol/L (95-110); GFR AFRICAN-AMERICAN > 60; GLUCOSE,RANDOM 101 mg/dL (70-110); POTASSIUM 3.3 mmol/L (3.6-5.0); SODIUM 141 mmol/L (132-148); TOTAL PROTEIN 4.8 g/dL (5.8-8.3); WHITE BLOOD COUNT 35.3 10^3/ul (4.5-11.0)
[2016-08-09] MEDS: diltiaZEM IVPB 100mg in NS 100 ML IV PRN (05:39)
[2016-08-09 05:51] LABS: BAND 7 % (0-2); HYPOCHROMIA SLIGHT; NEUTROPHIL 86 % (50.0-70.0); PLATELET ESTIMATE NORMAL (NORMAL); POIKILOCYTOSIS SLIGHT
[2016-08-09 05:52] LABS: ANISOCYTOSIS SLIGHT; OVALOCYTES SLIGHT
[2016-08-09] MEDS: metroNIDAZOLE IV 500 mg/100 ml 500 MG/100 ML BAG IVPB SCH ×3 (07:31→21:32)
--- NOTE | 2016-08-09 07:38 | PN ---
DATE: 08/09/2016 SUBJECTIVE: The patient appears comfortable at rest. She is not short of breath. PHYSICAL EXAMINATION: VITAL SIGNS: Temperature is 98.1, pulse 95, respirations 14/16, blood pressure 118/57. Oxygen saturation on nasal cannula is 94%. HEENT: Normocephalic, atraumatic. No JVD. CARDIOVASCULAR: Systolic ejection murmur at the lower left sternal border. No S3 gallop. LUNGS: Decreased breath sounds at the bases. No rhonchi or wheezing this morning. EXTREMITIES: No clubbing, cyanosis, or edema. Calves are nontender to palpation. GASTROINTESTINAL: Abdomen is soft. It remains distended and tender to palpation. Bowel sounds are decreased. SKIN: No acute rash. NEUROLOGIC: Limited at the present time. IMPRESSION: 1. Constipation. Colitis. 2. Sepsis syndrome. 3. Chronic obstructive pulmonary disease. 4. Congestive heart failure. 5. Atrial fibrillation. PLAN: The patient remains in the ICU. She is not short of breath at rest. She does state to feeling a little better overall. However, she does remain with abdominal pain. On physical exam, there is no bronchospasm noted. In addition, there is no significant alveolar arterial gradient. I will continue with the current nebulizer treatments and inhaled steroids for now. Surgical and GI inputs are noted. I would continue with the antibiotic coverage as per infectious disease. The temperatures have resolved. The leukocytosis is somewhat improved. The patient is currently n.p.o. I will also order aspiration precautions. Clinical status of the patient remains guarded. I will discuss the above with the entire ICU team in the next few moments. I will also discuss the above with the attending physician later this morning. Anastacio Gamez MD cc: [id number] TT: 08/09/2016 07:37:02 Confirmation # [id number] Dictation # [id number] rudy GILLETTE
[2016-08-09] MEDS: Budesonide 0.5 mg/2 ml Inhal Susp UD IH SCH ×2 (07:53→22:51)
--- NOTE | 2016-08-09 08:39 | RAD ---
HISTORY: distended abd COMPARISON: No prior. FINDINGS: BOWEL: No abnormally dilated small bowel loops. There is mild dilatation of the transverse colon, nonspecific. Mild retained feces. No masses or abnormal intra-abdominal calcifications. BONES: Right hip arthroplasty. Osteoarthritis left hip. OTHER FINDINGS: None. IMPRESSION: Unremarkable bowel gas pattern. No evidence of small bowel obstruction.
[2016-08-09] MEDS ORDERED: POLYETHYLENE GLYCOL 3350 17 GM/Dose PACKET PO ONE ×2 (09:24→18:00)
--- NOTE | 2016-08-09 09:50 | PN ---
DATE: 08/09/2016 The patient seen in 128, bed 7 earlier this morning. There is no fevers reported last night, unevent ful night as per nurse caring for the patient overnight. There has been no diarrhea reported. PHYSICAL EXAMINATION: VITAL SIGNS: Temperature is 98.1 and pulse of 97, respiratory rate of 20, blood pressure is 118/57. HEENT: Unremarkable. NECK: Supple. LUNGS: Have decreased breath sounds. HEART: Normal S1, S2. ABDOMEN: Soft, nontender. LABORATORY EXAMINATION: Reveals a white count of 35,000, hemoglobin of 10, platelets of 246. BUN of 40, creatinine of 0.9. Procalcitonin is 2.6. Microbiology reveals the patient has a gram-positive cocci in the blood in 1 bottle. There is also a gram-positive cocci in the urine. The other blood c ulture has no growth at 24 hours. The stool for C. diff antigen is positive, but the toxin negative. Review of the orders reveals the patient to be on daptomycin, metronidazole and meropenem and p.o. va ncomycin. ASSESSMENT AND PLAN: An 85-year-old female seen earlier this morning in the ICU bed #7 with severe s epsis, acute respiratory failure secondary to colitis and gram-positive cocci bacteremia, probable en terococcus contamination versus pathogen versus endocarditis with pseudomembranous colitis. Currentl y on daptomycin, IV Flagyl, p.o. vancomycin and meropenem. We will check on the identification and s ensitivity of the gram-positive cocci in the blood and also in the urine. Will also check on the rep eat blood cultures from this morning. Will make further recommendations upon the availability of the initial results. Rahat Rhoades MD cc: [id number] TT: 08/09/2016 09:49:47 Confirmation # [id number] Dictation # [id number] en
[2016-08-09] MEDS: Meropenem 1g/NS 100mL IVPB 1 GM/100 ML PIGGYBACK IVPB SCH ×2 (09:59→21:32)
[2016-08-09] MEDS: Vancomycin 25 MG/ML PO SCH ×4 (10:08→23:06)
--- NOTE | 2016-08-09 10:34 | CARD ---
APPROVED REPORT EKG Measurement Heart [id number] <Conclusion> Atrial fibrillation with rapid ventricular response with premature ventricular or aberrantly conducted complexes Nonspecific ST and T wave abnormality, probably digitalis effect Abnormal ECG
--- NOTE | 2016-08-09 13:07 | PN ---
DATE: 08/09/2016 SUBJECTIVE: The patient is an 85-year-old female who said she is feeling better. She also is confus ed. She denies any headaches, dizziness or chest pain. She says her abdominal pain is better. PHYSICAL EXAMINATION: VITAL SIGNS: Temperature is 98.1, pulse of 95, blood pressure 118/57, respirations 15. GENERAL: The patient comfortable, in no acute distress. HEENT: Anicteric sclerae. Moist mucosa. NECK: No JVD or adenopathy. CARDIAC: S1/S2. No murmurs. No rubs. Regular. RESPIRATORY: Clear to auscultation bilaterally. No wheezes, rales, or rhonchi. Good air entry. ABDOMEN: Bowel sounds are positive, soft, nontender, and nondistended. EXTREMITIES: No edema. Has 1+ pulses. LABS: White count of 35.3, hemoglobin is , potassium is 2.3. ASSESSMENT: 1. Colitis. 2. Sepsis. 3. Hypertension. 4. Atrial fibrillation. 5. Dyslipidemia. 6. Chronic obstructive pulmonary disease. PLAN: The patient is clinically improving. Her sepsis is improving and white count is better. She has blood cultures and urine cultures that are positive for gram-positive cocci. She is on Cardizem drip for atrial fibrillation. She is on Dilaudid for pain. She is on meropenem for antibiotics. Sh duane has an echo that has been ordered to rule out endocarditis. Tommie Xavier MD cc: [id number] TT: 08/09/2016 13:07:02 Confirmation # [id number] Dictation # [id number] [email or web address]
--- NOTE | 2016-08-09 14:44 | CP.CCUPN ---
<Chemo Jaime - Last Filed: 08/09/16 14:41> CCU Subjective - Physician Review Subjective (Free Text): Pt seen and examined at bedside. Pt had enema last night and resulted in a small bowel movement. Pt became tachycardic with a heart rate of 150 in a-fib. Pt was started on a cardizem drip. Heart rate was in the 90's the rest of the night. Pt admits to improvement in abdominal pain after bowel movement. Denies CP, SOB, N/V/D, fevers. CCU Objective - Vital Signs / Intake & Output Vital Signs (Last 4 hours): Vital Signs Pulse Resp 08/09/16 13:51 101 H 36 H 08/09/16 13:50 94 H 22 08/09/16 13:49 99 H 23 08/09/16 13:48 106 H 32 H 08/09/16 13:47 101 H 29 H 08/09/16 13:46 91 H 24 08/09/16 13:45 97 H 19 08/09/16 13:44 95 H 19 08/09/16 13:43 109 H 19 08/09/16 13:42 98 H 20 08/09/16 13:41 92 H 21 08/09/16 13:40 88 19 08/09/16 13:39 101 H 19 08/09/16 13:38 99 H 20 08/09/16 13:37 96 H 19 08/09/16 13:36 95 H 22 08/09/16 13:35 93 H 20 08/09/16 13:34 94 H 18 08/09/16 13:33 98 H 23 08/09/16 13:32 95 H 21 08/09/16 13:31 95 H 24 08/09/16 13:30 76 15 08/09/16 13:29 94 H 24 08/09/16 13:28 93 H 32 H 08/09/16 13:27 98 H 17 08/09/16 13:26 96 H 19 08/09/16 13:25 108 H 17 08/09/16 13:24 95 H 19 08/09/16 13:23 96 H 24 08/09/16 13:22 94 H 21 08/09/16 13:21 97 H 22 08/09/16 13:20 96 H 20 08/09/16 13:19 94 H 21 08/09/16 13:18 105 H 23 08/09/16 13:17 92 H 23 Intake and Output (Last 8hrs): Intake & Output 08/08/16 08/09/16 08/09/16 22:59 06:59 14:59 Intake Total 2800 1900 0 Output Total 500 500 Balance 2300 1400 0 Weight 170 lb 1.6 oz Intake: IV 2500 1600 0 Left Antecubital 1500 Right Hand 1500 Oral 0 Other 300 300 Output: Urine 500 500 Urethral (Garcia) 500 500 Other: Voiding Method Indwelling Catheter Indwelling Catheter # Bowel Movements 1 - Physical Exam Head: Positive for: Atraumatic, Normocephalic Pupils: Positive for: PERRL Extroacular Muscles: Positive for: EOMI Conjunctiva: Positive for: Normal Mouth: Positive for: Dry Pharnyx: Negative for: ERYTHEMA, EXUDATE Neck: Positive for: Normal Range of Motion Respiratory/Chest: Positive for: Clear to Auscultation, Good Air Exchange. Negative for: Respiratory Distress, Accessory Muscle Use Cardiovascular: Positive for: Normal S1, S2, Tachycardic. Negative for: Murmurs Abdomen: Positive for: Tenderness (diffuse, improved from previous day), Normal Bowel Sounds, Guarding. Negative for: Distention, Peritoneal Signs Back: Positive for: Normal Inspection Upper Extremity: Positive for: Normal Inspection. Negative for: Cyanosis, Edema Lower Extremity: Positive for: Normal Inspection. Negative for: Edema Neurological: Positive for: GCS=15, CN II-XII Intact, Speech Normal Skin: Positive for: Warm, Dry, Normal Color. Negative for: Rashes Psychiatric: Positive for: Alert, Normal Insight, Normal Concentration - Medications Active Medications: Active Medications Generic Name Dose Route Start Last Admin Trade Name Freq PRN Reason Stop Dose Admin Acetaminophen 650 mg 08/07/16 18:58 Tylenol 650 Mg Supp RC Q4H PRN Fever >100.4 F Budesonide 0.5 mg 08/08/16 08:00 08/09/16 07:53 Pulmicort Respules IH 0.5 mg [id number] TARSHA Administration Diltiazem HCl 5 mg 08/09/16 11:38 Cardizem IVP Q2H PRN HR >130 Hydromorphone HCl 0.5 mg 08/07/16 19:04 08/08/16 22:03 Dilaudid IVP 0.5 mg Q4H PRN Administration Pain, severe (8-10) Metronidazole 500 mg in 100 mls @ 100 mls/hr 08/07/16 22:00 08/09/16 07:31 Flagyl IVPB 100 mls/hr Q8 TARSHA Administration Protocol Meropenem 1g/NS 100mL IVPB 1 gm in 100 mls @ 100 mls/hr 08/08/16 10:00 09:59 Meropenem 1g/Ns 100ml Ivpb IVPB 08/15/16 10:01 100 mls/hr Q12 TARSHA Administration Protocol Sodium Chloride 1,000 mls @ 125 mls/hr 08/08/16 14:15 08/08/16 22:12 Sodium Chloride 0.9% IV 125 mls/hr .Q8H TARSHA Administration Daptomycin 450 mg/ Sodium 100 mls @ 200 mls/hr 08/08/16 15:00 08/08/16 16:45 Chloride IV 08/15/16 15:01 200 mls/hr Q24H TARSHA Administration diltiaZEM IVPB 100mg in NS 100 mls @ 5 mls/hr 08/08/16 23:07 08/09/16 13:00 Cardizem 100mg In Ns IV 0 mg/hr .Q20H PRN 0 mls/hr TITRATE PER MD ORDER Titration Protocol 5 MG/HR Levalbuterol HCl 0.63 mg 08/08/16 08:00 08/09/16 13:26 Xopenex IH 0.63 mg [id number] TARSHA Administration Levalbuterol HCl 0.63 mg 08/08/16 07:06 Xopenex IH Q2 PRN Shortness of Breath Ondansetron HCl 4 mg 08/07/16 18:58 Zofran Inj IVP Q6 PRN Nausea/Vomiting Pantoprazole Sodium 40 mg 08/08/16 10:00 08/09/16 10:06 Protonix Inj IV 40 mg DAILY TARSHA Administration Polyethylene Glycol 17 gm 08/09/16 18:00 Miralax PO 08/09/16 18:01 ONCE ONE Vancomycin HCl 500 mg 08/08/16 10:00 08/09/16 10:08 Vancocin 25 Mg/Ml (Oral Use) PO 500 mg QID TARSHA Administration Protocol - Patient Studies Lab Studies: Microbiology Studies 08/08/16 10:00 C. difficile Antigen & Toxin A,B (M - Final Stool 08/07/16 17:40 Urine Culture - Final Urine,Clean Catch Gram Positive Cocci Lab Studies 08/09/16 08/09/16 08/09/16 Range/Units 04:15 04:15 04:15 WBC 35.3 H* D (4.5-11.0) 10^3/ul RBC 3.75 (3.5-6.1) 10^6/uL Hgb 10.0 L (12.0-16.0) gm/dL Hct 33.2 L (36.0-48.0) % MCV 88.5 (80.0-105.0) fL MCH 26.7 (25.0-35.0) pg MCHC 30.1 L (31.0-37.0) g/dl RDW 19.1 H (11.5-14.5) % Plt Count 246 (120.0-450.0) 10^3/uL MPV 10.9 (7.0-11.0) fl Neutrophils % (Manual) 86 H (50.0-70.0) % Band Neutrophils % 7 H (0-2) % Lymphocytes % (Manual) 3 L (22.0-35.0) % Monocytes % (Manual) 4 (1.0-6.0) % Platelet Evaluation Normal (NORMAL) Hypochromasia Slight Poikilocytosis (manual Slight Anisocytosis (manual) Slight Ovalocytes Slight pO2 28 L (30-55) mm/Hg VBG pH 7.40 (7.32-7.43) VBG pCO2 49.0 (40-60) VBG HCO3 30.4 H (21-28) mmol/l VBG Total CO2 31.9 H (22-28) mmol.L VBG O2 Sat (Calc) 51.7 (40-65) % VBG Base Excess 4.5 H (0.0-2.0) mmol/L VBG Potassium 3.4 L (3.6-5.2) mmol/L Sodium 142.0 141 (132-148) mmol/L Chloride 110.0 H 105 (98-107) mmol/L Glucose 106 H (65-105) mg/dl Lactate 2.1 (0.7-2.1) mmol/L FiO2 21.0 % Potassium 3.3 L (3.6-5.0) mmol/L Carbon Dioxide 31 (21-33) mmol/L Anion Gap 8 L (10-20) BUN 40 H (7-21) mg/dL Creatinine 0.9 (0.5-1.4) mg/dL Est GFR ( Amer) > 60 Est GFR (Non-Af Amer) 59 Random Glucose 101 (70-110) mg/dL Calcium 7.3 L (8.4-10.5) mg/dL Total Bilirubin 1.3 (0.2-1.3) mg/dL AST 18 (15-39) U/L ALT 39 (7-56) U/L Alkaline Phosphatase 82 (38-133) U/L Total Creatine Kinase (35-230) U/L Total Protein 4.8 L (5.8-8.3) g/dL Albumin 2.2 L (3.0-4.8) g/dL Globulin 2.5 gm/dL Albumin/Globulin Ratio 0.9 L (1.1-1.8) Venous Blood Potassium 3.4 L (3.6-5.2) mmol/L Stool Leukocytes, Qual (NEGATIVE) 08/08/16 08/08/16 08/08/16 Range/Units 21:10 16:29 16:29 WBC (4.5-11.0) 10^3/ul RBC (3.5-6.1) 10^6/uL Hgb (12.0-16.0) gm/dL Hct (36.0-48.0) % MCV (80.0-105.0) fL MCH (25.0-35.0) pg MCHC (31.0-37.0) g/dl RDW (11.5-14.5) % Plt Count (120.0-450.0) 10^3/uL MPV (7.0-11.0) fl Neutrophils % (Manual) (50.0-70.0) % Band Neutrophils % (0-2) % Lymphocytes % (Manual) (22.0-35.0) % Monocytes % (Manual) (1.0-6.0) % Platelet Evaluation (NORMAL) Hypochromasia Poikilocytosis (manual Anisocytosis (manual) Ovalocytes pO2 25 L 27 L (30-55) mm/Hg VBG pH 7.39 7.38 (7.32-7.43) VBG pCO2 53.0 55.0 (40-60) VBG HCO3 32.1 H 32.5 H (21-28) mmol/l VBG Total CO2 33.7 H 34.2 H (22-28) mmol.L VBG O2 Sat (Calc) 44.5 50.6 (40-65) % VBG Base Excess 5.7 H 5.8 H (0.0-2.0) mmol/L VBG Potassium 3.5 L 4.0 (3.6-5.2) mmol/L Sodium 141.0 141.0 (132-148) mmol/L Chloride 109.0 H 106.0 (98-107) mmol/L Glucose 130 H 132 H (65-105) mg/dl Lactate 2.6 H 2.9 H (0.7-2.1) mmol/L FiO2 21.0 21.0 % Potassium (3.6-5.0) mmol/L Carbon Dioxide (21-33) mmol/L Anion Gap (10-20) BUN (7-21) mg/dL Creatinine (0.5-1.4) mg/dL Est GFR ( Amer) Est GFR (Non-Af Amer) Random Glucose (70-110) mg/dL Calcium (8.4-10.5) mg/dL Total Bilirubin (0.2-1.3) mg/dL AST (15-39) U/L ALT (7-56) U/L Alkaline Phosphatase (38-133) U/L Total Creatine Kinase < 20 L (35-230) U/L Total Protein (5.8-8.3) g/dL Albumin (3.0-4.8) g/dL Globulin gm/dL Albumin/Globulin Ratio (1.1-1.8) Venous Blood Potassium 3.5 L 4.0 (3.6-5.2) mmol/L Stool Leukocytes, Qual (NEGATIVE) 08/08/16 Range/Units 09:00 WBC (4.5-11.0) 10^3/ul RBC (3.5-6.1) 10^6/uL Hgb (12.0-16.0) gm/dL Hct (36.0-48.0) % MCV (80.0-105.0) fL MCH (25.0-35.0) pg MCHC (31.0-37.0) g/dl RDW (11.5-14.5) % Plt Count (120.0-450.0) 10^3/uL MPV (7.0-11.0) fl Neutrophils % (Manual) (50.0-70.0) % Band Neutrophils % (0-2) % Lymphocytes % (Manual) (22.0-35.0) % Monocytes % (Manual) (1.0-6.0) % Platelet Evaluation (NORMAL) Hypochromasia Poikilocytosis (manual Anisocytosis (manual) Ovalocytes pO2 (30-55) mm/Hg VBG pH (7.32-7.43) VBG pCO2 (40-60) VBG HCO3 (21-28) mmol/l VBG Total CO2 (22-28) mmol.L VBG O2 Sat (Calc) (40-65) % VBG Base Excess (0.0-2.0) mmol/L VBG Potassium (3.6-5.2) mmol/L Sodium (132-148) mmol/L Chloride (98-107) mmol/L Glucose (65-105) mg/dl Lactate (0.7-2.1) mmol/L FiO2 % Potassium (3.6-5.0) mmol/L Carbon Dioxide (21-33) mmol/L Anion Gap (10-20) BUN (7-21) mg/dL Creatinine (0.5-1.4) mg/dL Est GFR ( Amer) Est GFR (Non-Af Amer) Random Glucose (70-110) mg/dL Calcium (8.4-10.5) mg/dL Total Bilirubin (0.2-1.3) mg/dL AST (15-39) U/L ALT (7-56) U/L Alkaline Phosphatase (38-133) U/L Total Creatine Kinase (35-230) U/L Total Protein (5.8-8.3) g/dL Albumin (3.0-4.8) g/dL Globulin gm/dL Albumin/Globulin Ratio (1.1-1.8) Venous Blood Potassium (3.6-5.2) mmol/L Stool Leukocytes, Qual Negative (NEGATIVE) Laboratory Results - last 24 hr 08/08/16 08/08/16 08/08/16 09:00 16:29 16:29 WBC RBC Hgb Hct MCV MCH MCHC RDW Plt Count MPV Neutrophils % (Manual) Band Neutrophils % Lymphocytes % (Manual) Monocytes % (Manual) Platelet Evaluation Hypochromasia Poikilocytosis (manual Anisocytosis (manual) Ovalocytes pO2 27 L VBG pH 7.38 VBG pCO2 55.0 VBG HCO3 32.5 H VBG Total CO2 34.2 H VBG O2 Sat (Calc) 50.6 VBG Base Excess 5.8 H VBG Potassium 4.0 Sodium 141.0 Chloride 106.0 Glucose 132 H Lactate 2.9 H FiO2 21.0 Potassium Carbon Dioxide Anion Gap BUN Creatinine Est GFR ( Amer) Est GFR (Non-Af Amer) Random Glucose Calcium Total Bilirubin AST ALT Alkaline Phosphatase Total Creatine Kinase < 20 L Total Protein Albumin Globulin Albumin/Globulin Ratio Venous Blood Potassium 4.0 Stool Leukocytes, Qual Negative 08/08/16 08/09/16 08/09/16 21:10 04:15 04:15 WBC 35.3 H* D RBC 3.75 Hgb 10.0 L Hct 33.2 L MCV 88.5 MCH 26.7 MCHC 30.1 L RDW 19.1 H Plt Count 246 MPV 10.9 Neutrophils % (Manual) 86 H Band Neutrophils % 7 H Lymphocytes % (Manual) 3 L Monocytes % (Manual) 4 Platelet Evaluation Normal Hypochromasia Slight Poikilocytosis (manual Slight Anisocytosis (manual) Slight Ovalocytes Slight pO2 25 L VBG pH 7.39 VBG pCO2 53.0 VBG HCO3 32.1 H VBG Total CO2 33.7 H VBG O2 Sat (Calc) 44.5 VBG Base Excess 5.7 H VBG Potassium 3.5 L Sodium 141.0 141 Chloride 109.0 H 105 Glucose 130 H Lactate 2.6 H FiO2 21.0 Potassium 3.3 L Carbon Dioxide 31 Anion Gap 8 L BUN 40 H Creatinine 0.9 Est GFR ( Amer) > 60 Est GFR (Non-Af Amer) 59 Random Glucose 101 Calcium 7.3 L Total Bilirubin 1.3 AST 18 ALT 39 Alkaline Phosphatase 82 Total Creatine Kinase Total Protein 4.8 L Albumin 2.2 L Globulin 2.5 Albumin/Globulin Ratio 0.9 L Venous Blood Potassium 3.5 L Stool Leukocytes, Qual 08/09/16 04:15 WBC RBC Hgb Hct MCV MCH MCHC RDW Plt Count MPV Neutrophils % (Manual) Band Neutrophils % Lymphocytes % (Manual) Monocytes % (Manual) Platelet Evaluation Hypochromasia Poikilocytosis (manual Anisocytosis (manual) Ovalocytes pO2 28 L VBG pH 7.40 VBG pCO2 49.0 VBG HCO3 30.4 H VBG Total CO2 31.9 H VBG O2 Sat (Calc) 51.7 VBG Base Excess 4.5 H VBG Potassium 3.4 L Sodium 142.0 Chloride 110.0 H Glucose 106 H Lactate 2.1 FiO2 21.0 Potassium Carbon Dioxide Anion Gap BUN Creatinine Est GFR ( Amer) Est GFR (Non-Af Amer) Random Glucose Calcium Total Bilirubin AST ALT Alkaline Phosphatase Total Creatine Kinase Total Protein Albumin Globulin Albumin/Globulin Ratio Venous Blood Potassium 3.4 L Stool Leukocytes, Qual EKG/Cardiology Studies: Cardiology / EKG Studies 08/08/16 19:00 EKG [ELECTROCARDIOGRAM] Routine Comment: Reason For Exam: afib Critical Care Progress Note - Nutrition Nutrition: Nutrition Category Date Time Status NPO Diet [DIET] Diets 08/07/16 Dinner Ordered Assessment/Plan - Assessment and Plan (Free Text) Plan: 85 y/o F with PMH of A-fib, COPD, dyslpidemia, and HTN presents with severe sepsis secondary to c.diff colitis. Pt will continue on oral vancomycin, IV merrem, daptoymycin and flagyl. Enema helped patient, but did not completely resolve pain. Miralax added by GI. Surgery will not pursue surgical intervention at this time. Awaiting echocardiogram to r/o endocarditis at this time. Neuro: AAOx3 Monitor mental status Cardio: Echocardiogram pending Hemodynamically stable Maintain map >65 Pulm: Respiratory O2 sat 90% On Nasal cannula Pulmonology, Dr. Gamez following GI: C. diff colitis. Antigen positive, toxin negative Continue abx Miralax added by Dr. Macy LOCK Surgery following Endo Maintain euglycemia Goal glucose levels between 140-180 Nephro: Replenish electrolytes as needed Maintain euvolemia Maintain adequate urine output Heme/ID: Afebrile, Leukocytosis improved Urine and Blood cultures positive for gram positive cocci Echocardiogram pending Continue Daptomycin, Vancomycin, Flagyl, and Merrem Maintain normothermia PPX: Protonix SCDs Seen, reviewed, and discussed with attending Yeni PGY-1 <Aiyana COOPER,Ranjeet H - Last Filed: 08/09/16 16:44> CCU Objective - Vital Signs / Intake & Output Vital Signs (Last 4 hours): Vital Signs Pulse Resp BP Pulse Ox 08/09/16 15:00 111 H 26 H 124/64 77 L 08/09/16 14:00 121/62 08/09/16 13:59 100 H 26 H 08/09/16 13:51 101 H 36 H 08/09/16 13:50 94 H 22 08/09/16 13:49 99 H 23 08/09/16 13:48 106 H 32 H 08/09/16 13:47 101 H 29 H 08/09/16 13:46 91 H 24 08/09/16 13:45 97 H 19 08/09/16 13:44 95 H 19 08/09/16 13:43 109 H 19 08/09/16 13:42 98 H 20 08/09/16 13:41 92 H 21 08/09/16 13:40 88 19 08/09/16 13:39 101 H 19 08/09/16 13:38 99 H 20 08/09/16 13:37 96 H 19 08/09/16 13:36 95 H 22 08/09/16 13:35 93 H 20 08/09/16 13:34 94 H 18 08/09/16 13:33 98 H 23 08/09/16 13:32 95 H 21 08/09/16 13:31 95 H 24 08/09/16 13:30 76 15 08/09/16 13:29 94 H 24 08/09/16 13:28 93 H 32 H 08/09/16 13:27 98 H 17 08/09/16 13:26 96 H 19 08/09/16 13:25 108 H 17 08/09/16 13:24 95 H 19 08/09/16 13:23 96 H 24 08/09/16 13:22 94 H 21 08/09/16 13:21 97 H 22 08/09/16 13:20 96 H 20 08/09/16 13:19 94 H 21 08/09/16 13:18 105 H 23 08/09/16 13:17 92 H 23 Intake and Output (Last 8hrs): Intake & Output 08/09/16 08/09/16 08/09/16 06:59 14:59 22:59 Intake Total 1900 0 Output Total 500 Balance 1400 0 Weight 170 lb 1.6 oz Intake: IV 1600 0 Left Antecubital 1500 Other 300 Output: Urine 500 Urethral (Garcia) 500 Other: Voiding Method Indwelling Catheter - Medications Active Medications: Active Medications Generic Name Dose Route Start Last Admin Trade Name Freq PRN Reason Stop Dose Admin Acetaminophen 650 mg 08/07/16 18:58 Tylenol 650 Mg Supp RC Q4H PRN Fever >100.4 F Budesonide 0.5 mg 08/08/16 08:00 08/09/16 07:53 Pulmicort Respules IH 0.5 mg [id number] TARSHA Administration Diltiazem HCl 5 mg 08/09/16 11:38 Cardizem IVP Q2H PRN HR >130 Hydromorphone HCl 0.5 mg 08/07/16 19:04 08/08/16 22:03 Dilaudid IVP 0.5 mg Q4H PRN Administration Pain, severe (8-10) Metronidazole 500 mg in 100 mls @ 100 mls/hr 08/07/16 22:00 08/09/16 14:44 Flagyl IVPB 100 mls/hr Q8 TARSHA Administration Protocol Meropenem 1g/NS 100mL IVPB 1 gm in 100 mls @ 100 mls/hr 08/08/16 10:00 09:59 Meropenem 1g/Ns 100ml Ivpb IVPB 08/15/16 10:01 100 mls/hr Q12 TARSHA Administration Protocol Sodium Chloride 1,000 mls @ 125 mls/hr 08/08/16 14:15 08/08/16 22:12 Sodium Chloride 0.9% IV 125 mls/hr .Q8H TARSHA Administration Daptomycin 450 mg/ Sodium 100 mls @ 200 mls/hr 08/08/16 15:00 08/09/16 15:26 Chloride IV 08/15/16 15:01 200 mls/hr Q24H TARSHA Administration diltiaZEM IVPB 100mg in NS 100 mls @ 5 mls/hr 08/08/16 23:07 08/09/16 13:00 Cardizem 100mg In Ns IV 0 mg/hr .Q20H PRN 0 mls/hr TITRATE PER MD ORDER Titration Protocol 5 MG/HR Levalbuterol HCl 0.63 mg 08/08/16 08:00 08/09/16 13:26 Xopenex IH 0.63 mg [id number] TARSHA Administration Levalbuterol HCl 0.63 mg 08/08/16 07:06 Xopenex IH Q2 PRN Shortness of Breath Ondansetron HCl 4 mg 08/07/16 18:58 Zofran Inj IVP Q6 PRN Nausea/Vomiting Pantoprazole Sodium 40 mg 08/08/16 10:00 08/09/16 10:06 Protonix Inj IV 40 mg DAILY TARSHA Administration Polyethylene Glycol 17 gm 08/09/16 18:00 Miralax PO 08/09/16 18:01 ONCE ONE Vancomycin HCl 500 mg 08/08/16 10:00 08/09/16 14:45 Vancocin 25 Mg/Ml (Oral Use) PO 500 mg QID TARSHA Administration Protocol - Patient Studies Lab Studies: Microbiology Studies 08/08/16 10:00 C. difficile Antigen & Toxin A,B (M - Final Stool Lab Studies 08/09/16 08/09/16 08/09/16 Range/Units 04:15 04:15 04:15 WBC 35.3 H* D (4.5-11.0) 10^3/ul RBC 3.75 (3.5-6.1) 10^6/uL Hgb 10.0 L (12.0-16.0) gm/dL Hct 33.2 L (36.0-48.0) % MCV 88.5 (80.0-105.0) fL MCH 26.7 (25.0-35.0) pg MCHC 30.1 L (31.0-37.0) g/dl RDW 19.1 H (11.5-14.5) % Plt Count 246 (120.0-450.0) 10^3/uL MPV 10.9 (7.0-11.0) fl Neutrophils % (Manual) 86 H (50.0-70.0) % Band Neutrophils % 7 H (0-2) % Lymphocytes % (Manual) 3 L (22.0-35.0) % Monocytes % (Manual) 4 (1.0-6.0) % Platelet Evaluation Normal (NORMAL) Hypochromasia Slight Poikilocytosis (manual Slight Anisocytosis (manual) Slight Ovalocytes Slight pO2 28 L (30-55) mm/Hg VBG pH 7.40 (7.32-7.43) VBG pCO2 49.0 (40-60) VBG HCO3 30.4 H (21-28) mmol/l VBG Total CO2 31.9 H (22-28) mmol.L VBG O2 Sat (Calc) 51.7 (40-65) % VBG Base Excess 4.5 H (0.0-2.0) mmol/L VBG Potassium 3.4 L (3.6-5.2) mmol/L Sodium 142.0 141 (132-148) mmol/L Chloride 110.0 H 105 (98-107) mmol/L Glucose 106 H (65-105) mg/dl Lactate 2.1 (0.7-2.1) mmol/L FiO2 21.0 % Potassium 3.3 L (3.6-5.0) mmol/L Carbon Dioxide 31 (21-33) mmol/L Anion Gap 8 L (10-20) BUN 40 H (7-21) mg/dL Creatinine 0.9 (0.5-1.4) mg/dL Est GFR ( Amer) > 60 Est GFR (Non-Af Amer) 59 Random Glucose 101 (70-110) mg/dL Calcium 7.3 L (8.4-10.5) mg/dL Total Bilirubin 1.3 (0.2-1.3) mg/dL AST 18 (15-39) U/L ALT 39 (7-56) U/L Alkaline Phosphatase 82 (38-133) U/L Total Creatine Kinase (35-230) U/L Total Protein 4.8 L (5.8-8.3) g/dL Albumin 2.2 L (3.0-4.8) g/dL Globulin 2.5 gm/dL Albumin/Globulin Ratio 0.9 L (1.1-1.8) Venous Blood Potassium 3.4 L (3.6-5.2) mmol/L Stool Leukocytes, Qual (NEGATIVE) 08/08/16 08/08/1608/08/17 Range/Units 21:10 16:29 16:29 WBC (4.5-11.0) 10^3/ul RBC (3.5-6.1) 10^6/uL Hgb (12.0-16.0) gm/dL Hct (36.0-48.0) % MCV (80.0-105.0) fL MCH (25.0-35.0) pg MCHC (31.0-37.0) g/dl RDW (11.5-14.5) % Plt Count (120.0-450.0) 10^3/uL MPV (7.0-11.0) fl Neutrophils % (Manual) (50.0-70.0) % Band Neutrophils % (0-2) % Lymphocytes % (Manual) (22.0-35.0) % Monocytes % (Manual) (1.0-6.0) % Platelet Evaluation (NORMAL) Hypochromasia Poikilocytosis (manual Anisocytosis (manual) Ovalocytes pO2 25 L 27 L (30-55) mm/Hg VBG pH 7.39 7.38 (7.32-7.43) VBG pCO2 53.0 55.0 (40-60) VBG HCO3 32.1 H 32.5 H (21-28) mmol/l VBG Total CO2 33.7 H 34.2 H (22-28) mmol.L VBG O2 Sat (Calc) 44.5 50.6 (40-65) % VBG Base Excess 5.7 H 5.8 H (0.0-2.0) mmol/L VBG Potassium 3.5 L 4.0 (3.6-5.2) mmol/L Sodium 141.0 141.0 (132-148) mmol/L Chloride 109.0 H 106.0 (98-107) mmol/L Glucose 130 H 132 H (65-105) mg/dl Lactate 2.6 H 2.9 H (0.7-2.1) mmol/L FiO2 21.0 21.0 % Potassium (3.6-5.0) mmol/L Carbon Dioxide (21-33) mmol/L Anion Gap (10-20) BUN (7-21) mg/dL Creatinine (0.5-1.4) mg/dL Est GFR ( Amer) Est GFR (Non-Af Amer) Random Glucose (70-110) mg/dL Calcium (8.4-10.5) mg/dL Total Bilirubin (0.2-1.3) mg/dL AST (15-39) U/L ALT (7-56) U/L Alkaline Phosphatase (38-133) U/L Total Creatine Kinase < 20 L (35-230) U/L Total Protein (5.8-8.3) g/dL Albumin (3.0-4.8) g/dL Globulin gm/dL Albumin/Globulin Ratio (1.1-1.8) Venous Blood Potassium 3.5 L 4.0 (3.6-5.2) mmol/L Stool Leukocytes, Qual (NEGATIVE) 08/08/16 Range/Units 09:00 WBC (4.5-11.0) 10^3/ul RBC (3.5-6.1) 10^6/uL Hgb (12.0-16.0) gm/dL Hct (36.0-48.0) % MCV (80.0-105.0) fL MCH (25.0-35.0) pg MCHC (31.0-37.0) g/dl RDW (11.5-14.5) % Plt Count (120.0-450.0) 10^3/uL MPV (7.0-11.0) fl Neutrophils % (Manual) (50.0-70.0) % Band Neutrophils % (0-2) % Lymphocytes % (Manual) (22.0-35.0) % Monocytes % (Manual) (1.0-6.0) % Platelet Evaluation (NORMAL) Hypochromasia Poikilocytosis (manual Anisocytosis (manual) Ovalocytes pO2 (30-55) mm/Hg VBG pH (7.32-7.43) VBG pCO2 (40-60) VBG HCO3 (21-28) mmol/l VBG Total CO2 (22-28) mmol.L VBG O2 Sat (Calc) (40-65) % VBG Base Excess (0.0-2.0) mmol/L VBG Potassium (3.6-5.2) mmol/L Sodium (132-148) mmol/L Chloride (98-107) mmol/L Glucose (65-105) mg/dl Lactate (0.7-2.1) mmol/L FiO2 % Potassium (3.6-5.0) mmol/L Carbon Dioxide (21-33) mmol/L Anion Gap (10-20) BUN (7-21) mg/dL Creatinine (0.5-1.4) mg/dL Est GFR ( Amer) Est GFR (Non-Af Amer) Random Glucose (70-110) mg/dL Calcium (8.4-10.5) mg/dL Total Bilirubin (0.2-1.3) mg/dL AST (15-39) U/L ALT (7-56) U/L Alkaline Phosphatase (38-133) U/L Total Creatine Kinase (35-230) U/L Total Protein (5.8-8.3) g/dL Albumin (3.0-4.8) g/dL Globulin gm/dL Albumin/Globulin Ratio (1.1-1.8) Venous Blood Potassium (3.6-5.2) mmol/L Stool Leukocytes, Qual Negative (NEGATIVE) Laboratory Results - last 24 hr 08/08/16 08/08/16 08/08/16 09:00 16:29 16:29 WBC RBC Hgb Hct MCV MCH MCHC RDW Plt Count MPV Neutrophils % (Manual) Band Neutrophils % Lymphocytes % (Manual) Monocytes % (Manual) Platelet Evaluation Hypochromasia Poikilocytosis (manual Anisocytosis (manual) Ovalocytes pO2 27 L VBG pH 7.38 VBG pCO2 55.0 VBG HCO3 32.5 H VBG Total CO2 34.2 H VBG O2 Sat (Calc) 50.6 VBG Base Excess 5.8 H VBG Potassium 4.0 Sodium 141.0 Chloride 106.0 Glucose 132 H Lactate 2.9 H FiO2 21.0 Potassium Carbon Dioxide Anion Gap BUN Creatinine Est GFR ( Amer) Est GFR (Non-Af Amer) Random Glucose Calcium Total Bilirubin AST ALT Alkaline Phosphatase Total Creatine Kinase < 20 L Total Protein Albumin Globulin Albumin/Globulin Ratio Venous Blood Potassium 4.0 Stool Leukocytes, Qual Negative 08/08/16 08/09/16 08/09/16 21:10 04:15 04:15 WBC 35.3 H* D RBC 3.75 Hgb 10.0 L Hct 33.2 L MCV 88.5 MCH 26.7 MCHC 30.1 L RDW 19.1 H Plt Count 246 MPV 10.9 Neutrophils % (Manual) 86 H Band Neutrophils % 7 H Lymphocytes % (Manual) 3 L Monocytes % (Manual) 4 Platelet Evaluation Normal Hypochromasia Slight Poikilocytosis (manual Slight Anisocytosis (manual) Slight Ovalocytes Slight pO2 25 L VBG pH 7.39 VBG pCO2 53.0 VBG HCO3 32.1 H VBG Total CO2 33.7 H VBG O2 Sat (Calc) 44.5 VBG Base Excess 5.7 H VBG Potassium 3.5 L Sodium 141.0 141 Chloride 109.0 H 105 Glucose 130 H Lactate 2.6 H FiO2 21.0 Potassium 3.3 L Carbon Dioxide 31 Anion Gap 8 L BUN 40 H Creatinine 0.9 Est GFR ( Amer) > 60 Est GFR (Non-Af Amer) 59 Random Glucose 101 Calcium 7.3 L Total Bilirubin 1.3 AST 18 ALT 39 Alkaline Phosphatase 82 Total Creatine Kinase Total Protein 4.8 L Albumin 2.2 L Globulin 2.5 Albumin/Globulin Ratio 0.9 L Venous Blood Potassium 3.5 L Stool Leukocytes, Qual 08/09/16 04:15 WBC RBC Hgb Hct MCV MCH MCHC RDW Plt Count MPV Neutrophils % (Manual) Band Neutrophils % Lymphocytes % (Manual) Monocytes % (Manual) Platelet Evaluation Hypochromasia Poikilocytosis (manual Anisocytosis (manual) Ovalocytes pO2 28 L VBG pH 7.40 VBG pCO2 49.0 VBG HCO3 30.4 H VBG Total CO2 31.9 H VBG O2 Sat (Calc) 51.7 VBG Base Excess 4.5 H VBG Potassium 3.4 L Sodium 142.0 Chloride 110.0 H Glucose 106 H Lactate 2.1 FiO2 21.0 Potassium Carbon Dioxide Anion Gap BUN Creatinine Est GFR ( Amer) Est GFR (Non-Af Amer) Random Glucose Calcium Total Bilirubin AST ALT Alkaline Phosphatase Total Creatine Kinase Total Protein Albumin Globulin Albumin/Globulin Ratio Venous Blood Potassium 3.4 L Stool Leukocytes, Qual EKG/Cardiology Studies: Cardiology / EKG Studies 08/08/16 19:00 EKG [ELECTROCARDIOGRAM] Routine Comment: Reason For Exam: afib Critical Care Progress Note - Nutrition Nutrition: Nutrition Category Date Time Status NPO Diet [DIET] Diets 04/25/17 Dinner Ordered Attending/Attestation - Attestation I have personally seen and examined this patient.: Yes I have fully participated in the care of the patient.: Yes I have reviewed all pertinent clinical information: Yes Notes (Text): 08/09/16 16:41 85 y/o F w/ acute abd pain WBC trending down. On Empiric abx for possible C.Diff exposure and Gram + cocci bactermia. Awaiting ECHo for possible EC. Likely source urine w/ Enteroccocus Bowel regimen started . Awaiting BM. AFIB on Cardizem drip and being converted to P.O Cardizem and IVP as needed. PT/OT. Out of bed to Chair. cc time 65 min
--- NOTE | 2016-08-09 15:48 | CARD ---
APPROVED REPORT EXAM: Two-dimensional and M-mode echocardiogram with Doppler and color Doppler. INDICATION R/O ENDOCARDITIS 2D DIMENSIONS Left Atrium (2D)5.2 (1.6-4.0cm)IVSd1.2 (0.7-1.1cm) LVDd4.3 (3.9-5.9cm)PWd1.2 (0.7-1.1cm) LVDs3.2 (2.5-4.0cm)FS (%) 25.9 % LVEF (%)51.2 (>50%) M-Mode DIMENSIONS Aortic Root3.20 (2.2-3.7cm)Aortic Cusp Exc.1.60 (1.5-2.0cm) Aortic Valve AoV Peak Jbcgowxb098.0cm/Meghan Peak GR.13mmHg Mitral Valve E/A ratio0.0 TDI E/Lateral E'0.0E/Medial E'0.0 Pulmonary Valve PV Peak Qcbgntvz23.0cm/sPV Peak Grad.3mmHg Tricuspid Valve TR Peak [id number]/sRAP [id number] Peak Gr.58mmHg [id number] LEFT VENTRICLE The left ventricle is normal size. There is borderline concentric left ventricular hypertrophy. The left ventricular function is normal.EF-55% There is normal LV segmental wall motion. A Fib No left ventricle thrombus noted on this study. There is no ventricular septal defect visualized. There is no left ventricular aneurysm. There is no mass noted in the left ventricle. RIGHT VENTRICLE The right ventricle is mildly to moderately dilated. The right ventricle is borderline hypertrophied. Systolic function of RV is mildly to moderately reduced. ATRIA The left atrium is severely dilated. The right atrium is moderately dilated. The interatrial septum is intact with no evidence for an atrial septal defect. AORTIC VALVE The aortic valve is calcified but opens well. There is trace aortic regurgitation. There is no aortic valvular stenosis. There is no aortic valvular vegetation. MITRAL VALVE The mitral valve is thickened but opens well. Mitral regurgitation is moderate to severe. There is no mitral valve stenosis. There is no evidence of mitral valve prolapse. TRICUSPID VALVE The tricuspid valve leaflets are thickened , but open well. There is moderate tricuspid regurgitation.[id number] There is moderate pulmonary hypertension. mof Hg. There is no tricuspid valve stenosis. There is no tricuspid valve prolapse or vegetation. PULMONIC VALVE The pulmonic valve is borderline thickened. There is trace to mild pulmonic valvular regurgitation. There is no pulmonic valvular stenosis. GREAT VESSELS The aortic root is normal in size. The ascending aorta is normal in size. The pulmonary artery is normal. The IVC is dilated. PERICARDIAL EFFUSION There is no pleural effusion. There is no pericardial effusion. <Conclusion> The left ventricle is normal size. There is borderline concentric left ventricular hypertrophy. The left ventricular function is normal.EF-55% There is normal LV segmental wall motion. Systolic function of RV is mildly to moderately reduced. There is trace aortic regurgitation. Mitral regurgitation is moderate to severe. There is moderate tricuspid regurgitation.[id number] There is moderate pulmonary hypertension. mof Hg. The IVC is dilated. There is no pericardial effusion. No Vegetationm or p0fezoxox noted.
--- NOTE | 2016-08-09 16:13 | PN ---
DATE: 08/09/2016 Seen and examined at the bedside earlier this morning. The patient is awake and alert. She had an e nema yesterday of 500 mL. The patient was reported to have small bowel movements. No reports of any bleeding. The patient denies any nausea, vomiting. Reports the abdominal pain is better. She want s to drink. The patient also had episode of rapid AFib, on Cardizem drip. Cardizem drip started. VITAL SIGNS: Temperature is 98.1, blood pressure is 118/57, pulse is 95, respirations 19, O2 saturat ion 97. LABORATORY DATA: WBC 35.3. This is improving. Hemoglobin 10.0, hematocrit 33.2, platelets 246. So dium 141, K 3.3, BUN 40, creatinine is 0.9. LFTs are within normal limits. Stool leukocytes are neg ative. Stool for C. diff is positive antigen. PHYSICAL EXAMINATION: HEENT: Sclerae are anicteric. NECK: Supple. CARDIAC: S1, S2. LUNGS: With decreased breath sounds, but good air entry, no rales or wheeze. ABDOMEN: With bowel sounds, soft. Positive bowel sounds, but hypoactive. Her abdomen is distended and does have tenderness on deep palpation, but no rebound or guarding. Abdominal x-ray was done and this shows mild dilation of the transverse colon, nonspecific, mild gunnar ined feces, no masses or abnormal intra-abdominal calcifications. ASSESSMENT: This patient had acute abdomen. Her abdominal discomfort is now slowly improving. She had severe leukocytosis with severe sepsis, likely secondary to Clostridium difficile colitis. Her s tool was positive for Clostridium difficile antigen, although she is constipated. She also has histo ry of atrial fibrillation. She had rapid ventricular response, history of chronic obstructive pulmon owen disease, hypertension. PLAN: Continue to monitor leukocytes. Her WBCs are improving. Her blood cultures and urine culture s are positive for gram-positive cocci. She is on IV antibiotics of meropenem. The patient is going for an echo to rule out any endocarditis. We will give the patient MiraLax x 2 doses today and cont inue the oral vancomycin. Continue gastrointestinal prophylaxis as well as DVT prophylaxis and surgi gonzalo followup. Case was discussed with medical team and surgical team at the bedside. The patient wa s seen and case discussed with Dr. Cavazos. Dorothea LAZO cc: [id number] TT: 08/09/2016 16:12:45 Confirmation # [id number] Dictation # [id number] rn
--- NOTE | 2016-08-09 20:16 | CP.PCM.PN ---
<Guillermo Perdue - Last Filed: 08/10/16 16:21> Subjective - Date & Time of Evaluation Date of Evaluation: 08/09/16 Time of Evaluation: 10:10 - Subjective Subjective: SURGERY PROGRESS NOTE FOR DDR. SELENE JonesF seen and examined at bedside. Patient resting comfortably. Abdominal pain has decreased. BM minimal to none. Objective - Vital Signs/Intake and Output Vital Signs (last 24 hours): Temp Pulse Resp BP Pulse Ox 98.0 F 111 H 26 H 124/64 77 L 08/09/16 08:00 08/09/16 15:00 08/09/16 15:00 08/09/16 15:00 08/09/16 15:00 Intake and Output: 08/09/16 08/10/16 18:59 06:59 Intake Total 2800 Output Total 1400 Balance 1400 - Medications Medications: Current Medications Acetaminophen (Tylenol 650 Mg Supp) 650 mg RC Q4H PRN PRN Reason: Fever >100.4 F Budesonide (Pulmicort Respules) 0.5 mg IH [id number] TARSHA Last Admin: 08/09/16 07:53 Dose: 0.5 mg Diltiazem HCl (Cardizem) 5 mg IVP Q2H PRN PRN Reason: HR >130 Hydromorphone HCl (Dilaudid) 0.5 mg IVP Q4H PRN PRN Reason: Pain, severe (8-10) Last Admin: 08/08/16 22:03 Dose: 0.5 mg Metronidazole (Flagyl) 500 mg in 100 mls @ 100 mls/hr IVPB Q8 TARSHA PRN Reason: Protocol Last Admin: 08/09/16 14:44 Dose: 100 mls/hr Meropenem 1g/NS 100mL IVPB (Meropenem 1g/Ns 100ml Ivpb) 1 gm in 100 mls @ 100 mls/hr IVPB Q12 TARSHA PRN Reason: Protocol Stop: 08/15/16 10:01 Last Admin: 08/09/16 09:59 Dose: 100 mls/hr Daptomycin 450 mg/ Sodium (Chloride) 100 mls @ 200 mls/hr IV Q24H TARSHA Stop: 08/15/16 15:01 Last Admin: 08/09/16 15:26 Dose: 200 mls/hr Levalbuterol HCl (Xopenex) 0.63 mg IH [id number] [facility] Last Admin: 08/09/16 13:26 Dose: 0.63 mg Levalbuterol HCl (Xopenex) 0.63 mg IH Q2 PRN PRN Reason: Shortness of Breath Ondansetron HCl (Zofran Inj) 4 mg IVP Q6 PRN PRN Reason: Nausea/Vomiting Pantoprazole Sodium (Protonix Inj) 40 mg IV DAILY [facility] Last Admin: 08/09/16 10:06 Dose: 40 mg Vancomycin HCl (Vancocin 25 Mg/Ml (Oral Use)) 500 mg PO QID TARSHA PRN Reason: Protocol Last Admin: 08/09/16 18:00 Dose: 500 mg - Labs Labs: 08/09/16 04:15 08/09/16 04:15 PT 10.8 Seconds (9.9-11.8) 08/08/16 05:30 INR 1.00 (0.93-1.08) 08/08/16 05:30 APTT 29.2 Seconds (23.7-30.8) 08/08/16 05:30 - Constitutional Appears: Non-toxic, No Acute Distress - Head Exam Head Exam: ATRAUMATIC - Respiratory Exam Respiratory Exam: Clear to Ausculation Bilateral, NORMAL BREATHING PATTERN - Cardiovascular Exam Cardiovascular Exam: REGULAR RHYTHM, +S1, +S2 - GI/Abdominal Exam GI & Abdominal Exam: Soft, Tenderness. absent: Distended Additional comments: tenderness improving, less firm - Neurological Exam Neurological Exam: Alert, Awake - Skin Skin Exam: Dry, Intact, Normal Color, Warm Assessment and Plan - Assessment and Plan (Free Text) Assessment: 85F presents with possibly C.diff colitis and constipation -repeat c.diff needed -miralax orders - patient may need disimpaction - no OR at this time Further recs discuss with Dr. Varela <Felix Varela - Last Filed: 11/13/16 23:51> Objective - Vital Signs/Intake and Output Vital Signs (last 24 hours): Temp Pulse Resp BP Pulse Ox 97.1 F L 92 H 20 105/65 98 08/16/16 12:00 08/16/16 14:57 08/16/16 12:00 08/16/16 14:57 08/16/16 05:20 - Labs Labs: 08/16/16 06:30 08/16/16 06:30 PT 10.8 Seconds (9.9-11.8) 08/08/16 05:30 INR 1.00 (0.93-1.08) 08/08/16 05:30 APTT 29.2 Seconds (23.7-30.8) 08/08/16 05:30 Assessment and Plan - Assessment and Plan (Free Text) Plan: Patient was seen and examined by me. I agree with assessment and plan as per resident's note.
[2016-08-09] MEDS: HYDROmorphone 0.5 mg/0.5 ml ISec IVP PRN (21:43)
[2016-08-10] MEDS: Levalbuterol 0.63 MG/3 ML Inhal Soln UD IH SCH ×5 (01:36→20:13)
[2016-08-10] MEDS: metroNIDAZOLE IV 500 mg/100 ml 500 MG/100 ML BAG IVPB SCH ×3 (06:04→21:56)
[2016-08-10 07:37] LABS: HEMATOCRIT 28.1 % (36.0-48.0); MEAN CELL VOLUME 87.3 fL (80.0-105.0); MEAN CORPUSCULAR HEMOGLOBIN 26.4 pg (25.0-35.0); MEAN CORPUSCULAR HGB CONC 30.2 g/dl (31.0-37.0); MEAN PLATELET VOLUME 11.3 fl (7.0-11.0); RED CELL DISTRIBUTION WIDTH 19.1 % (11.5-14.5); WHITE BLOOD COUNT 21.2 10^3/ul (4.5-11.0)
[2016-08-10] MEDS: Budesonide 0.5 mg/2 ml Inhal Susp UD IH SCH (07:48)
[2016-08-10 07:55] LABS: ALB/GLOB RATIO 0.8 (1.1-1.8); ALKALINE PHOSPHATASE 71 U/L (38-133); ALT/SGPT 41 U/L (7-56); AST/SGOT 21 U/L (15-39); BILIRUBIN,TOTAL 1.3 mg/dL (0.2-1.3); BLOOD UREA NITROGEN 25 mg/dL (7-21); CALCIUM 7.2 mg/dL (8.4-10.5); CARBON DIOXIDE 25 mmol/L (21-33); CHLORIDE 110 mmol/L (95-110); GFR AFRICAN-AMERICAN > 60; GLUCOSE,RANDOM 87 mg/dL (70-110); POTASSIUM 3.4 mmol/L (3.6-5.0); SODIUM 139 mmol/L (132-148); TOTAL PROTEIN 4.4 g/dL (5.8-8.3)
--- NOTE | 2016-08-10 07:56 | PN ---
DATE: 08/10/2016 SUBJECTIVE: The patient appears comfortable this morning. She is not short of breath at rest. PHYSICAL EXAMINATION: VITAL SIGNS: Temperature is 98.0, pulse 88, respirations 18/20, blood pressure 124/64. Oxygen saturation on nasal cannula is 94%. HEENT: Normocephalic, atraumatic. No JVD. CARDIOVASCULAR: Systolic ejection murmur at the lower left sternal border. No S3 gallop. LUNGS: Decreased breath sounds at the bases. No rhonchi. No wheezing. EXTREMITIES: No clubbing, cyanosis, or edema. Calves are nontender to palpation. GASTROINTESTINAL: Abdomen is soft. It is less distended and less tender to palpation. Bowel sounds are somewhat improved. SKIN: No acute rash. NEUROLOGIC: Limited at the present time. IMPRESSION: 1. Constipation. Colitis. 2. Sepsis syndrome. 3. Chronic obstructive pulmonary disease. 4. Congestive heart failure. 5. Atrial fibrillation. PLAN: The patient appears comfortable this morning. She is not short of breath at rest. She is now out of the ICU and on a medical-surgical floor. She does state to less abdominal pain and feels better. I did discuss the case with the night nurse at length. The night nurse stated that the patient did have a small bowel movement last night. Follow up with GI and surgery are noted. On physical exam, there is no significant bronchospasm noted. In addition, there is no significant alveolar-arterial gradient. I will continue with the current nebulizer treatments and inhaled steroids for now. I would continue with the antibiotic coverage as per infectious disease. Repeat a.m. labs are pending. Clinical status of the patient is certainly improved -- compared to the initial presentation. However, the overall status/prognosis of this elderly patient remains very guarded. I will discuss the above with Dr. Xavier. Anastacio Gamez MD cc: [id number] TT: 08/10/2016 07:55:58 Confirmation # [id number] Dictation # [id number] MTDD
--- NOTE | 2016-08-10 08:00 | PN ---
DATE: 08/10/2016 SUBJECTIVE: The patient has no complaints of any chest pain, no shortness of breath, no headaches or dizziness. PHYSICAL EXAMINATION: VITAL SIGNS: Temperature 98, pulse of 111, blood pressure 124/64, respiration is 26. GENERAL: The patient comfortable, in no acute distress. HEENT: Anicteric sclerae. Moist mucosa. NECK: No JVD or adenopathy. CARDIAC: S1/S2. No murmurs. No rubs. Regular. RESPIRATORY: Clear to auscultation bilaterally. No wheezes, rales, or rhonchi. Good air entry. ABDOMEN: Bowel sounds are positive, soft, nontender, and nondistended. EXTREMITIES: No edema. Has 1+ pulses. LABS: Yesterday's white count was 35. ASSESSMENT: 1. Colitis. 2. Sepsis secondary to gram-positive cocci. 3. Urinary retention. 4. Hypertension. 5. Atrial fibrillation. 6. Dyslipidemia. 7. Chronic obstructive pulmonary disease. 8. Delirium. PLAN: The patient is slowly improving. She has had cultures that are positive. She is on daptomyci n for antibiotics. She gets Dilaudid for pain p.r.n. She is going to continue with Protonix. She i s being followed by Dr. Cavazos and Dr. Lawton. The patient is being followed by surgery for an acut e abdomen. She is n.p.o. Will place her on a liquid diet to see if she tolerates. Tommie Xavier MD cc: [id number] TT: 08/10/2016 08:00:24 Confirmation # [id number] Dictation # [id number] mn
[2016-08-10] MEDS: Sodium Chloride 0.9% 1,000 ML IV SCH ×3 (08:08→08:09)
[2016-08-10] MEDS: Meropenem 1g/NS 100mL IVPB 1 GM/100 ML PIGGYBACK IVPB SCH (10:15)
[2016-08-10] MEDS: Vancomycin 25 MG/ML PO SCH ×4 (10:15→23:05)
[2016-08-10] MEDS ORDERED: Levalbuterol 0.63 MG/3 ML Inhal Soln UD IH STA (13:02)
[2016-08-10] MEDS ORDERED: Levalbuterol 0.63 MG/3 ML Inhal Soln UD IH ONE (13:15)
--- NOTE | 2016-08-10 14:00 | RAD ---
HISTORY: wheeze,congestion COMPARISON: 08/07/2016 FINDINGS: LUNGS: No active pulmonary disease. PLEURA: Small pleural effusions are seen right greater than left. CARDIOVASCULAR: Mild cardiomegaly and mild vascular congestion OSSEOUS STRUCTURES: No significant abnormalities. VISUALIZED UPPER ABDOMEN: Normal. OTHER FINDINGS: None. IMPRESSION: Mild vascular congestion and small bilateral pleural effusions
--- NOTE | 2016-08-10 14:20 | CP.PCM.PN ---
<Ramiro Chowdhury - Last Filed: 08/10/16 14:17> Subjective - Date & Time of Evaluation Date of Evaluation: 08/10/16 Time of Evaluation: 14:17 - Subjective Subjective: Surgery: Dr. Varela Pt seen and examined. Resting comfortably in bed. Pain resolved. +BM, no N/V. Wants to eat. Objective - Vital Signs/Intake and Output Vital Signs (last 24 hours): Temp Pulse Resp BP Pulse Ox 97.8 F 90 18 133/52 L 100 08/10/16 10:37 08/10/16 10:37 08/10/16 10:37 08/10/16 10:37 08/10/16 10:37 Intake and Output: 08/10/16 08/10/16 06:59 18:59 Intake Total 120 Balance 120 - Medications Medications: Current Medications Acetaminophen (Tylenol 650 Mg Supp) 650 mg RC Q4H PRN PRN Reason: Fever >100.4 F Budesonide (Pulmicort Respules) 0.5 mg IH [id number] [facility] Last Admin: 08/10/16 07:48 Dose: Not Given Diltiazem HCl (Cardizem) 5 mg IVP Q2H PRN PRN Reason: HR >130 Hydromorphone HCl (Dilaudid) 0.5 mg IVP Q4H PRN PRN Reason: Pain, severe (8-10) Last Admin: 08/09/16 21:43 Dose: 0.5 mg Metronidazole (Flagyl) 500 mg in 100 mls @ 100 mls/hr IVPB Q8 [facility] PRN Reason: Protocol Last Admin: 08/10/16 13:26 Dose: 100 mls/hr Meropenem 1g/NS 100mL IVPB (Meropenem 1g/Ns 100ml Ivpb) 1 gm in 100 mls @ 100 mls/hr IVPB Q12 TARSHA PRN Reason: Protocol Stop: 08/15/16 10:01 Last Admin: 08/10/16 10:15 Dose: 100 mls/hr Daptomycin 450 mg/ Sodium (Chloride) 100 mls @ 200 mls/hr IV Q24H [facility] Stop: 08/15/16 15:01 Last Admin: 08/09/16 15:26 Dose: 200 mls/hr Levalbuterol HCl (Xopenex) 0.63 mg IH [id number] [facility] Last Admin: 08/10/16 13:37 Dose: 0.63 mg Levalbuterol HCl (Xopenex) 0.63 mg IH Q2 PRN PRN Reason: Shortness of Breath Levalbuterol HCl (Xopenex) 0.63 mg IH [id number] [facility] Ondansetron HCl (Zofran Inj) 4 mg IVP Q6 PRN PRN Reason: Nausea/Vomiting Pantoprazole Sodium (Protonix Inj) 40 mg IV DAILY [facility] Last Admin: 08/10/16 10:14 Dose: 40 mg Vancomycin HCl (Vancocin 25 Mg/Ml (Oral Use)) 500 mg PO QID TARSHA PRN Reason: Protocol Last Admin: 08/10/16 13:26 Dose: 500 mg - Labs Labs: 08/10/16 06:30 08/10/16 06:30 PT 10.8 Seconds (9.9-11.8) 08/08/16 05:30 INR 1.00 (0.93-1.08) 08/08/16 05:30 APTT 29.2 Seconds (23.7-30.8) 08/08/16 05:30 - Constitutional Appears: Non-toxic, No Acute Distress - Head Exam Head Exam: ATRAUMATIC, NORMOCEPHALIC - Eye Exam Eye Exam: EOMI - ENT Exam ENT Exam: Mucous Membranes Moist - Neck Exam Neck Exam: Full ROM - Respiratory Exam Respiratory Exam: NORMAL BREATHING PATTERN. absent: Accessory Muscle Use, Respiratory Distress - GI/Abdominal Exam GI & Abdominal Exam: Soft. absent: Distended, Firm, Guarding, Rigid, Tenderness - Extremities Exam Extremities Exam: absent: Calf Tenderness, Pedal Edema - Neurological Exam Neurological Exam: Alert, Awake, Oriented x3 Assessment and Plan - Assessment and Plan (Free Text) Plan: 85F w. Cdiff colitis -CLD, ADAT -serial abd exams -abx -colace -d/w attending [place] PGY2 <Felix Varela - Last Filed: 11/13/16 23:50> Objective - Vital Signs/Intake and Output Vital Signs (last 24 hours): Temp Pulse Resp BP Pulse Ox 97.1 F L 92 H 20 105/65 98 08/16/16 12:00 08/16/16 14:57 08/16/16 12:00 08/16/16 14:57 08/16/16 05:20 - Labs Labs: 08/16/16 06:30 08/16/16 06:30 PT 10.8 Seconds (9.9-11.8) 08/08/16 05:30 INR 1.00 (0.93-1.08) 08/08/16 05:30 APTT 29.2 Seconds (23.7-30.8) 08/08/16 05:30 Assessment and Plan - Assessment and Plan (Free Text) Plan: Patient was seen and examined by me. I agree with assessment and plan as per resident's note.
--- NOTE | 2016-08-10 15:48 | PN ---
DATE: 08/10/2016 The patient seen earlier today in 570, bed 1. No fevers and no chills. PHYSICAL EXAMINATION: VITAL SIGNS: Temperature is 98, blood pressure is 120/60, respiratory rate of 20, heart rate of 100. HEENT: Unremarkable. NECK: Supple. LUNGS: Have decreased breath sounds. HEART: Normal S1, S2. ABDOMEN: Soft, nontender. LABORATORY EXAMINATION: Reveals the patient's white count is decreased from 48,000 to 21,000. Hemog lobin of 8, BUN of 25, creatinine of 0.7. The BNP is 2900 and the procalcitonin is 2.66, creatinine is 0.7 and stool for occult blood is negative. Microbiology reveals the patient has Enterococcus ana paula calis in the blood, 2 bottles, which is sensitive to vancomycin and sensitive to ampicillin. The uri ne is gram-positive cocci. The repeat blood cultures are no growth at 24 hours. The stool C. diff a ntigen is positive and negative toxin. Stool cultures are negative. Review of the orders reveals th e patient to be on daptomycin. The patient is also on Flagyl, IV meropenem and p.o. vancomycin. ASSESSMENT AND PLAN: An 85-year-old female with severe sepsis with enterococcus bacteremia, may be s econdary to urinary tract infection versus endocarditis. We will treat the patient with ampicillin a nd ceftriaxone. Discontinue daptomycin and meropenem. We will continue the p.o. vancomycin for the Clostridium difficile antigen. Checking on the echocardiogram from yesterday reveals no vegetation o r thrombus is noted on the echo. We will check on the identification of gram-positive cocci in the u rine. Repeat cultures became negative within 24-48 hours. We will follow with you. Rahat Rhoades MD cc: [id number] TT: 08/10/2016 15:47:17 Confirmation # [id number] Dictation # [id number] tn
--- NOTE | 2016-08-10 16:26 | PN ---
DATE: 08/10/2016 Seen and examined at the bedside this afternoon. She was eating her clear liquid diet. She does not complain of any nausea, vomiting or abdominal pain. Apparently, she was reported to have a small BM . They were not able though to take the stool studies. VITAL SIGNS: Temperature is 97.8, blood pressure 133/52, pulse is 90, respirations 18, 100% on room air. LABORATORY DATA: WBC is 21.2 (her WBC count continues to improve), hemoglobin is low at 8.5, hematoc rit 28.1, platelets are 219. Her sodium 139, K is 3.4, BUN 25, creatinine is 0.7. LFTs are within n ormal limits. BNP was done and is 2960. Stool occult blood was negative. She had a chest x-ray and it showed mild vascular congestion and small bilateral pleural effusion. PHYSICAL EXAMINATION: HEENT: Sclerae are anicteric. NECK: Supple. CARDIAC: S1, S2. LUNGS: Decreased breath sounds. Did not hear any rales or wheeze. ABDOMEN: With bowel sounds, soft. Minimal tenderness, definitely much improved. No rebound or guar ding. ASSESSMENT: Improving abdominal pain. The patient with sepsis secondary to gram-positive cocci. Sh e has Clostridium difficile colitis, history of atrial fibrillation, hypertension, chronic obstructiv e pulmonary disease, constipation. PLAN: On clear liquids; she seems to be tolerating it so far. She is on IV antibiotics of Ampicilli n, Ceftriaxone, and Flagyl as well as oral vancomycin. On stool softeners. Monitor output. Monitor H and H. The patient was seen and case discussed with Dr. Cavazos. Dorothea Alonsoes VIOLET cc: [id number] TT: 08/10/2016 16:25:40 Confirmation # [id number] Dictation # [id number] mn
[2016-08-10] MEDS: POLYETHYLENE GLYCOL 3350 17 GM/Dose PACKET PO SCH (17:51)
[2016-08-10] MEDS: Ampicillin 2 GM in Sodium Chloride 0.9% 100 ML IVPB SCH ×2 (17:51→23:50)
--- NOTE | 2016-08-11 00:52 | PN ---
DATE: 08/10/2016 ADDENDUM: This patient was seen and evaluated earlier. This is an addendum to the GI progress report dictated by Dorothea De Jesus NP. The patient feels a lot better. PLAN: The patient will be on a regular dose of MiraLax, only minimal bowel movements present. Will give her MiraLax twice daily. Clear liquid diet. Continue the antibiotics as per ID. Continue p.o. vancomycin. We will continue to closely follow up her care. Thank you very much for allowing us to participate in the care of the patient. Rohan Cavazos MD cc: [id number] TT: 08/11/2016 00:51:21 Confirmation # [id number] Dictation # [id number] mn MTDD
[2016-08-11] MEDS: Levalbuterol 0.63 MG/3 ML Inhal Soln UD IH SCH ×4 (01:17→21:32)
[2016-08-11] MEDS: metroNIDAZOLE IV 500 mg/100 ml 500 MG/100 ML BAG IVPB SCH ×3 (05:25→22:19)
[2016-08-11] MEDS: Ampicillin 2 GM in Sodium Chloride 0.9% 100 ML IVPB SCH ×3 (06:50→17:28)
[2016-08-11 08:11] LABS: HEMATOCRIT 29.3 % (36.0-48.0); MEAN CELL VOLUME 87.5 fL (80.0-105.0); MEAN CORPUSCULAR HEMOGLOBIN 26.9 pg (25.0-35.0); MEAN CORPUSCULAR HGB CONC 30.7 g/dl (31.0-37.0); MEAN PLATELET VOLUME 11.5 fl (7.0-11.0); RED CELL DISTRIBUTION WIDTH 18.9 % (11.5-14.5); WHITE BLOOD COUNT 18.7 10^3/ul (4.5-11.0)
[2016-08-11 08:24] LABS: ALB/GLOB RATIO 0.8 (1.1-1.8); ALKALINE PHOSPHATASE 77 U/L (38-133); AST/SGOT 24 U/L (15-39); BLOOD UREA NITROGEN 16 mg/dL (7-21); CALCIUM 7.4 mg/dL (8.4-10.5); CARBON DIOXIDE 26 mmol/L (21-33); CHLORIDE 109 mmol/L (98-107); GFR AFRICAN-AMERICAN > 60; GLUCOSE,RANDOM 92 mg/dL (70-110); POTASSIUM 3.2 mmol/L (3.6-5.0); SODIUM 138 mmol/L (132-148); TOTAL PROTEIN 4.7 g/dL (5.8-8.3)
[2016-08-11 08:26] LABS: ALT/SGPT 38 U/L (7-56); BILIRUBIN,TOTAL 1.4 mg/dL (0.2-1.3)
--- NOTE | 2016-08-11 08:53 | PN ---
DATE: 08/11/2016 SUBJECTIVE: The patient appears comfortable this morning. She is not short of breath at rest. OBJECTIVE: VITAL SIGNS: Temperature is 98.2, pulse this morning is approximately 88, respiratory rate 18, blood pressure 120/54. Oxygen saturation on nasal cannula is 94-100%. HEENT: Normocephalic, atraumatic. No JVD. CARDIOVASCULAR: Systolic ejection murmur at the lower left sternal border. No S3 gallop. LUNGS: Decreased breath sounds at the bases. No rhonchi or wheezing. EXTREMITIES: No clubbing, cyanosis, or edema. Calves are nontender to palpation. GASTROINTESTINAL: Abdomen is soft. It is less distended and less tender to palpation. Bowel sounds are improved. SKIN: No acute rash. NEUROLOGIC: Limited at the present time. IMPRESSION: 1. Constipation. Colitis. 2. Sepsis syndrome. 3. Chronic obstructive pulmonary disease. 4. Congestive heart failure. 5. Atrial fibrillation. PLAN: The patient appears comfortable this morning. She is not short of breath at rest. She states she is feeling much better overall. I did discuss the case with the night nurse at length. The night nurse stated that the patient did have several good bowel movements and feels much more comfortable this morning. On physical exam, no significant bronchospasm is noted. In addition, there is no significant alveolar arterial gradient. I will continue with the current nebulizer treatments and inhaled steroids for now. I would continue with the GI and surgical evaluations. Inputs are noted. I would continue with the antibiotic coverage as per infectious disease. Input by Dr. Rhoades is noted. The clinical status of the patient continues to improve. The patient is advised to work with physical therapy and increase her activity as tolerated. I will discuss the above with the attending physician. Anastacio Gamez MD cc: [id number] TT: 08/11/2016 08:52:11 Confirmation # [id number] Dictation # [id number] jn MTDD
[2016-08-11] MEDS: Budesonide 0.5 mg/2 ml Inhal Susp UD IH SCH ×2 (09:25→21:31)
[2016-08-11] MEDS: POLYETHYLENE GLYCOL 3350 17 GM/Dose PACKET PO SCH ×2 (10:05→17:30)
--- NOTE | 2016-08-11 10:05 | PN ---
DATE: 08/11/2016 SUBJECTIVE: The patient has no complaints of any chest pain or shortness of breath, no headaches. S he is feeling better. PHYSICAL EXAMINATION: VITAL SIGNS: Temperature is 98, pulse of 67, blood pressure 137/62, respirations 18. GENERAL: The patient comfortable, in no acute distress. HEENT: Anicteric sclerae. Moist mucosa. NECK: No JVD or adenopathy. CARDIAC: S1/S2. No murmurs. No rubs. Regular. RESPIRATORY: Clear to auscultation bilaterally. No wheezes, rales, or rhonchi. Good air entry. ABDOMEN: Bowel sounds are positive, soft, nontender, and nondistended. EXTREMITIES: No edema. Has 1+ pulses. LABORATORY DATA: White count of 18.7, hemoglobin is ____. ASSESSMENT: 1. Hypokalemia. 2. Colitis. 3. Sepsis secondary to enterococcus. 4. Hypertension. 5. Atrial fibrillation. 6. Dyslipidemia. 7. Chronic obstructive pulmonary disease. 8. Delirium. PLAN: The patient is currently comfortable. She is on ampicillin IV. The patient is receiving Card izem. The patient is on Colace for constipation, is going to be on Protonix. The patient is on Roce phin for antibiotics. The patient is on Xopenex. She is on a liquid diet. Tommie Xavier MD cc: [id number] TT: 08/11/2016 10:04:55 Confirmation # [id number] Dictation # [id number] tn
[2016-08-11] MEDS: cefTRIAXone 2 GM IN NS 2 GM/100 ML BAG IVPB SCH (10:06)
[2016-08-11] MEDS: Vancomycin 25 MG/ML PO SCH ×4 (10:07→22:21)
[2016-08-11 15:35] LABS: ARTERIAL BLOOD GAS HCO3 23.4 mmol/L (21-28)
--- NOTE | 2016-08-11 16:13 | RAD ---
HISTORY: dyspnea COMPARISON: Comparison chest 08/10/2016 FINDINGS: LUNGS: Pulmonary vascular congestive changes slightly increased from prior study with bilateral lower lobe alveolar-type infiltrates and bilateral effusions right larger than left PLEURA: No significant pleural effusion identified, no pneumothorax apparent. CARDIOVASCULAR: Cardiomegaly. OSSEOUS STRUCTURES: No significant abnormalities. VISUALIZED UPPER ABDOMEN: Normal. OTHER FINDINGS: None. IMPRESSION: Pulmonary vascular congestive changes slightly increased from prior study with bilateral lower lobe alveolar-type infiltrates and bilateral effusions right larger than left Cardiomegaly.
--- NOTE | 2016-08-11 16:35 | CP.PCM.PN ---
Subjective - Date & Time of Evaluation Date of Evaluation: 08/11/16 Time of Evaluation: 15:10 - Subjective Subjective: Patient seen stat at the request of her RN for her c/o "I can't breathe". She denies c/o chest pain, palpitations,nausea ,vomiting,dizziness,abdominal pain,calf pain or any other complaint. VS :BP 120/70 P81 RR20 T 98.2 PMH: HTN,AFib,Dyslipidemia Objective - Vital Signs/Intake and Output Vital Signs (last 24 hours): Temp Pulse Resp BP Pulse Ox 98.0 F 67 18 120/70 97 08/11/16 08:00 08/11/16 08:00 08/11/16 08:00 08/11/16 15:10 08/11/16 08:00 Intake and Output: 08/11/16 08/11/16 06:59 18:59 Intake Total 1460 Balance 1460 - Medications Medications: Current Medications Acetaminophen (Tylenol 650 Mg Supp) 650 mg RC Q4H PRN PRN Reason: Fever >100.4 F Budesonide (Pulmicort Respules) 0.5 mg IH [id number] [facility] Last Admin: 08/11/16 09:25 Dose: 0.5 mg Docusate Sodium (Colace) 100 mg PO BID [facility] Last Admin: 08/11/16 10:05 Dose: 100 mg Metronidazole (Flagyl) 500 mg in 100 mls @ 100 mls/hr IVPB Q8 [facility] PRN Reason: Protocol Last Admin: 08/11/16 13:01 Dose: 100 mls/hr Ampicillin 2 gm/ Sodium (Chloride) 100 mls @ 200 mls/hr IVPB Q6 [facility] PRN Reason: Protocol Stop: 09/07/16 18:01 Last Admin: 08/11/16 12:59 Dose: 200 mls/hr Ceftriaxone Sodium (Rocephin 2 Gm Ivpb) 2 gm in 100 mls @ 100 mls/hr IVPB DAILY [facility] PRN Reason: Protocol Stop: 09/08/16 10:01 Last Admin: 08/11/16 10:06 Dose: 100 mls/hr Potassium Chloride (Potassium Chloride 10 Meq/100 Ml) 10 meq in 100 mls @ 100 mls/hr IVPB Q2H [facility] Stop: 08/11/16 20:14 Levalbuterol HCl (Xopenex) 0.63 mg IH [id number] [facility] Last Admin: 08/11/16 13:46 Dose: 0.63 mg Levalbuterol HCl (Xopenex) 0.63 mg IH Q2 PRN PRN Reason: Shortness of Breath Levalbuterol HCl (Xopenex) 0.63 mg IH [id number] [facility] Ondansetron HCl (Zofran Inj) 4 mg IVP Q6 PRN PRN Reason: Nausea/Vomiting Pantoprazole Sodium (Protonix Inj) 40 mg IV DAILY [facility] Last Admin: 08/11/16 10:05 Dose: 40 mg Polyethylene Glycol (Miralax) 17 gm PO BID [facility] Last Admin: 08/11/16 10:05 Dose: Not Given Vancomycin HCl (Vancocin 25 Mg/Ml (Oral Use)) 500 mg PO QID [facility] PRN Reason: Protocol Last Admin: 08/11/16 13:02 Dose: 500 mg - Labs Labs: 08/11/16 08:00 08/11/16 08:00 PT 10.8 Seconds (9.9-11.8) 08/08/16 05:30 INR 1.00 (0.93-1.08) 08/08/16 05:30 APTT 29.2 Seconds (23.7-30.8) 08/08/16 05:30 - Constitutional Appears: No Acute Distress - Head Exam Head Exam: ATRAUMATIC, NORMAL INSPECTION, NORMOCEPHALIC - Eye Exam Eye Exam: PERRL - ENT Exam ENT Exam: Mucous Membranes Moist - Neck Exam Neck Exam: Normal Inspection - Respiratory Exam Respiratory Exam: Decreased Breath Sounds, Rales, NORMAL BREATHING PATTERN. absent: Accessory Muscle Use Additional comments: Diminished breath sounds and crepitations heard - Cardiovascular Exam Cardiovascular Exam: REGULAR RHYTHM. absent: JVD - GI/Abdominal Exam GI & Abdominal Exam: Soft, Normal Bowel Sounds. absent: Tenderness - Extremities Exam Extremities Exam: absent: Calf Tenderness, Pedal Edema Additional comments: Area of erythema noted on medial aspect of R antecubital region.it is not warm to touch. - Back Exam Back Exam: NORMAL INSPECTION - Neurological Exam Neurological Exam: Alert (confused at times) - Psychiatric Exam Psychiatric exam: Anxious - Skin Skin Exam: Dry, Warm Assessment and Plan - Assessment and Plan (Free Text) Assessment: CHF Hypokalemia. Plan: Cxray,EKG,ABG,BNP,Lasix and KCl riders ordered stat Addendum:Labs,EKG and Chest Xray reviewed.Findings conveyed to Dr Morenita White to be done stat,then q 8 hx 2.
--- NOTE | 2016-08-11 18:22 | CP.PCM.PN ---
Subjective - Date & Time of Evaluation Date of Evaluation: 08/11/16 Time of Evaluation: 18:19 - Subjective Subjective: Surgery: Dr. Luna covering for Dr. Varela Pt seen and examined. Resting comfortably in bed. Pain controlled. No N/V. Having BM. Tolerating diet. Objective - Vital Signs/Intake and Output Vital Signs (last 24 hours): Temp Pulse Resp BP Pulse Ox 98 F 103 H 22 135/70 95 08/11/16 16:00 08/11/16 16:00 08/11/16 16:00 08/11/16 16:00 08/11/16 16:00 Intake and Output: 08/11/16 08/11/16 06:59 18:59 Intake Total 1460 Balance 1460 - Medications Medications: Current Medications Acetaminophen (Tylenol 650 Mg Supp) 650 mg RC Q4H PRN PRN Reason: Fever >100.4 F Budesonide (Pulmicort Respules) 0.5 mg IH [id number] [facility] Last Admin: 08/11/16 09:25 Dose: 0.5 mg Docusate Sodium (Colace) 100 mg PO BID [facility] Last Admin: 08/11/16 17:30 Dose: 100 mg Metronidazole (Flagyl) 500 mg in 100 mls @ 100 mls/hr IVPB Q8 [facility] PRN Reason: Protocol Last Admin: 08/11/16 13:01 Dose: 100 mls/hr Ampicillin 2 gm/ Sodium (Chloride) 100 mls @ 200 mls/hr IVPB Q6 [facility] PRN Reason: Protocol Stop: 09/07/16 18:01 Last Admin: 08/11/16 17:28 Dose: 200 mls/hr Ceftriaxone Sodium (Rocephin 2 Gm Ivpb) 2 gm in 100 mls @ 100 mls/hr IVPB DAILY [facility] PRN Reason: Protocol Stop: 09/08/16 10:01 Last Admin: 08/11/16 10:06 Dose: 100 mls/hr Potassium Chloride (Potassium Chloride 10 Meq/100 Ml) 10 meq in 100 mls @ 100 mls/hr IVPB Q2H [facility] Stop: 08/11/16 20:14 Last Admin: 08/11/16 17:30 Dose: 100 mls/hr Levalbuterol HCl (Xopenex) 0.63 mg IH [id number] [facility] Last Admin: 08/11/16 13:46 Dose: 0.63 mg Levalbuterol HCl (Xopenex) 0.63 mg IH Q2 PRN PRN Reason: Shortness of Breath Levalbuterol HCl (Xopenex) 0.63 mg IH [id number] [facility] Ondansetron HCl (Zofran Inj) 4 mg IVP Q6 PRN PRN Reason: Nausea/Vomiting Pantoprazole Sodium (Protonix Inj) 40 mg IV DAILY [facility] Last Admin: 08/11/16 10:05 Dose: 40 mg Polyethylene Glycol (Miralax) 17 gm PO BID [facility] Last Admin: 08/11/16 17:30 Dose: Not Given Vancomycin HCl (Vancocin 25 Mg/Ml (Oral Use)) 500 mg PO QID [facility] PRN Reason: Protocol Last Admin: 08/11/16 17:31 Dose: 500 mg - Labs Labs: 08/11/16 08:00 08/11/16 08:00 PT 10.8 Seconds (9.9-11.8) 08/08/16 05:30 INR 1.00 (0.93-1.08) 08/08/16 05:30 APTT 29.2 Seconds (23.7-30.8) 08/08/16 05:30 - Constitutional Appears: Non-toxic, No Acute Distress - Head Exam Head Exam: ATRAUMATIC, NORMOCEPHALIC - Eye Exam Eye Exam: EOMI. absent: Scleral icterus - ENT Exam ENT Exam: Mucous Membranes Moist - Neck Exam Neck Exam: Full ROM - Respiratory Exam Respiratory Exam: NORMAL BREATHING PATTERN. absent: Accessory Muscle Use, Respiratory Distress - GI/Abdominal Exam GI & Abdominal Exam: Soft. absent: Distended, Firm, Guarding, Rigid, Tenderness , Rebound - Extremities Exam Extremities Exam: absent: Calf Tenderness, Pedal Edema - Neurological Exam Neurological Exam: Alert, Awake, Oriented x3 Assessment and Plan - Assessment and Plan (Free Text) Assessment: 85F w. C. Diff colitis -c/w ABX -serial abd exams -ADAT -no plans for surgical intervention at this time -will savanah attending Zemaitis PGY2
--- NOTE | 2016-08-11 20:38 | PN ---
DATE: 08/11/2016 The patient is in bed in no acute distress, was seen in room 570. PHYSICAL EXAMINATION: VITAL SIGNS: Temperature is 98, blood pressure is 135/70, respiratory rate of 22, heart rate of 103. HEENT: Unremarkable. NECK: Supple. LUNGS: Have decreased breath sounds. HEART: Normal S1, S2. ABDOMEN: Soft, nontender. LABORATORY DATA: Reveals a white count of 18,700, hemoglobin of 9. Chemistries reveal the BUN of 16 , creatinine of 0.6, procalcitonin on the was 2.66. Microbiology reveals the blood cultures hav e Enterococcus faecalis and urine culture is gram-positive cocci, not identified. Currently, patient 's medications reveals the patient to be on ampicillin, ceftriaxone, and p.o. vancomycin. The patien t's stool for C. diff toxin is positive and antigen is positive. The patient had an echo, no vegetat ions were noted. ASSESSMENT AND PLAN: An 85-year-old female with severe sepsis with enterococcus bacteremia secondary to probably urine as the source, on ampicillin and ceftriaxone, also with pseudomembranous colitis o n IV Flagyl and p.o. vancomycin. Repeat cultures, blood cultures are no growth. Awaiting for identi fication and sensitivity of the gram-positive cocci in the urine. Overall prognosis is quite poor. T he patient has a negative echo for vegetations. We will follow with you. Rahat Rhoades MD cc: [id number] TT: 08/11/2016 20:37:31 Confirmation # [id number] Dictation # [id number] jasmeet
--- NOTE | 2016-08-11 21:55 | PN ---
DATE: 08/11/2016 SUBJECTIVE: This patient was seen and evaluated earlier today. Feeling much improved. Is toleratin g the diet. PHYSICAL EXAMINATION: VITAL SIGNS: Temperature is 98, pulse is 103, blood pressure is 135/70. HEENT: Atraumatic, anicteric. NECK: Supple. HEART: S1, S2 heard. LUNGS: Bilateral normal vesicular breath sounds. ABDOMEN: Soft. There is mild tenderness present. There is no rebound or guarding. EXTREMITIES: No cyanosis, no clubbing. LABORATORY DATA: Hemoglobin is 9, hematocrit 29.3, WBC count has come down to 18.7, platelets 220. BUN 16, creatinine is 0.6. BNP is 5760. IMPRESSION: This 85-year-old patient is admitted with sepsis, constipation, and pseudomembranous col itis, the patient is presently on IV Flagyl and p.o. vancomycin, and enterococcal bacteremia, on ampi cillin and ceftriaxone. PLAN: The plan is to continue the antibiotics and slowly advance the diet. Continue to closely foll ow up her care and suggest further management based on the clinical course. Rohan Cavazos MD cc: [phone] TT: 08/11/2016 21:54:40 Confirmation # [id number] Dictation # [id number] angelia
[2016-08-12] MEDS: Levalbuterol 0.63 MG/3 ML Inhal Soln UD IH SCH ×6 (02:15→20:09)
[2016-08-12] MEDS: metroNIDAZOLE IV 500 mg/100 ml 500 MG/100 ML BAG IVPB SCH ×3 (06:16→22:14)
[2016-08-12] MEDS: Ampicillin 2 GM in Sodium Chloride 0.9% 100 ML IVPB SCH ×4 (06:18→18:06)
--- NOTE | 2016-08-12 08:13 | CP.PCM.PN ---
Subjective - Date & Time of Evaluation Date of Evaluation: 08/12/16 Time of Evaluation: 08:10 - Subjective Subjective: Surgery: Dr. Luna covering for Dr. Varela Pt seen and examined. Pt is upset. She states that she has been having large amounts of diarrhea. She denies abd pain, no N/V. She is tolerating diet. Would like to eat more. Objective - Vital Signs/Intake and Output Vital Signs (last 24 hours): Temp Pulse Resp BP Pulse Ox 97.8 F 76 20 112/72 95 08/12/16 07:30 08/12/16 07:30 08/12/16 07:30 08/12/16 07:30 08/12/16 07:30 Intake and Output: 08/12/16 08/12/16 06:59 18:59 Intake Total 360 Output Total 3 Balance 357 - Medications Medications: Current Medications Acetaminophen (Tylenol 650 Mg Supp) 650 mg RC Q4H PRN PRN Reason: Fever >100.4 F Budesonide (Pulmicort Respules) 0.5 mg IH [id number] [facility] Last Admin: 08/11/16 21:31 Dose: 0.5 mg Docusate Sodium (Colace) 100 mg PO BID [facility] Last Admin: 08/11/16 17:30 Dose: 100 mg Metronidazole (Flagyl) 500 mg in 100 mls @ 100 mls/hr IVPB Q8 [facility] PRN Reason: Protocol Last Admin: 08/12/16 06:16 Dose: 100 mls/hr Ampicillin 2 gm/ Sodium (Chloride) 100 mls @ 200 mls/hr IVPB Q6 [facility] PRN Reason: Protocol Stop: 09/07/16 18:01 Last Admin: 08/12/16 06:18 Dose: 200 mls/hr Ceftriaxone Sodium (Rocephin 2 Gm Ivpb) 2 gm in 100 mls @ 100 mls/hr IVPB DAILY [facility] PRN Reason: Protocol Stop: 09/08/16 10:01 Last Admin: 08/11/16 10:06 Dose: 100 mls/hr Levalbuterol HCl (Xopenex) 0.63 mg IH [id number] [facility] Last Admin: 08/12/16 02:15 Dose: Not Given Levalbuterol HCl (Xopenex) 0.63 mg IH Q2 PRN PRN Reason: Shortness of Breath Levalbuterol HCl (Xopenex) 0.63 mg IH [id number] [facility] Ondansetron HCl (Zofran Inj) 4 mg IVP Q6 PRN PRN Reason: Nausea/Vomiting Pantoprazole Sodium (Protonix Inj) 40 mg IV DAILY [facility] Last Admin: 08/11/16 10:05 Dose: 40 mg Polyethylene Glycol (Miralax) 17 gm PO BID [facility] Last Admin: 08/11/16 17:30 Dose: Not Given Vancomycin HCl (Vancocin 25 Mg/Ml (Oral Use)) 500 mg PO QID [facility] PRN Reason: Protocol Last Admin: 08/11/16 22:21 Dose: 500 mg - Labs Labs: 08/11/16 08:00 08/11/16 08:00 PT 10.8 Seconds (9.9-11.8) 08/08/16 05:30 INR 1.00 (0.93-1.08) 08/08/16 05:30 APTT 29.2 Seconds (23.7-30.8) 08/08/16 05:30 - Constitutional Appears: Non-toxic, No Acute Distress - Head Exam Head Exam: ATRAUMATIC, NORMOCEPHALIC - Eye Exam Eye Exam: EOMI - ENT Exam ENT Exam: Mucous Membranes Moist - Neck Exam Neck Exam: Full ROM - Respiratory Exam Respiratory Exam: NORMAL BREATHING PATTERN. absent: Respiratory Distress - GI/Abdominal Exam GI & Abdominal Exam: Soft. absent: Distended, Firm, Guarding, Rigid, Tenderness , Rebound - Extremities Exam Extremities Exam: absent: Calf Tenderness, Pedal Edema - Neurological Exam Neurological Exam: Alert, Awake, Oriented x3 Assessment and Plan - Assessment and Plan (Free Text) Assessment: 85F w. C.Diff colitis, constipation, now w. multiple episodes of diarrhea -d/c Miralax -c/w colace -advance diet to HHD -c/w abx -serial abd exams -will dKalynw attending Zemaitis PGY2
[2016-08-12] MEDS: Budesonide 0.5 mg/2 ml Inhal Susp UD IH SCH ×2 (08:18→20:09)
[2016-08-12 08:42] LABS: HEMATOCRIT 29.4 % (36.0-48.0); MEAN CELL VOLUME 86.2 fL (80.0-105.0); MEAN CORPUSCULAR HEMOGLOBIN 26.7 pg (25.0-35.0); MEAN PLATELET VOLUME 11.6 fl (7.0-11.0); RED CELL DISTRIBUTION WIDTH 18.9 % (11.5-14.5); WHITE BLOOD COUNT 16.6 10^3/ul (4.5-11.0)
[2016-08-12 08:48] LABS: ALB/GLOB RATIO 0.9 (1.1-1.8); ALKALINE PHOSPHATASE 88 U/L (38-133); ALT/SGPT 40 U/L (7-56); AST/SGOT 25 U/L (15-39); BILIRUBIN,TOTAL 1.3 mg/dL (0.2-1.3); BLOOD UREA NITROGEN 10 mg/dL (7-21); CALCIUM 7.5 mg/dL (8.4-10.5); CARBON DIOXIDE 26 mmol/L (21-33); CHLORIDE 106 mmol/L (98-107); GFR AFRICAN-AMERICAN > 60; GLUCOSE,RANDOM 90 mg/dL (70-110); POTASSIUM 3.4 mmol/L (3.6-5.0); SODIUM 136 mmol/L (132-148)
[2016-08-12 08:52] LABS: TROPONIN I 0.02 ng/mL
[2016-08-12] MEDS: cefTRIAXone 2 GM IN NS 2 GM/100 ML BAG IVPB SCH (09:36)
[2016-08-12] MEDS: Vancomycin 25 MG/ML PO SCH ×4 (11:04→22:11)
--- NOTE | 2016-08-12 16:53 | RAD ---
HISTORY: Abdominal pain, diarrhea COMPARISON: Comparison made with radiographs of the abdomen dated 08/08/2016. BOWEL: Nonobstructive/nonspecific bowel gas pattern is present. BONES: Normal. OTHER FINDINGS: Note again made of right-sided total hip replacement. Mild DJD left hip. IMPRESSION: No evidence acute mechanical bowel obstruction. Stable right hip arthroplasty.
--- NOTE | 2016-08-12 17:49 | PN ---
DATE: 08/12/2016 SUBJECTIVE: The patient seen earlier in room 570. The patient had no fevers reported and overall th e patient's condition is poor. The patient was complaining of diarrhea, but no abdominal pain and no fevers and no chills. PHYSICAL EXAMINATION: VITAL SIGNS: Temperature is 98, blood pressure is 140/70, respiratory rate of 20, heart rate of 101. HEENT: Unremarkable. NECK: Supple. LUNGS: Have decreased breath sounds. HEART: Normal S1, S2. ABDOMEN: Soft, nontender. LABORATORY DATA: Reveals the white count is down to 16,600, hemoglobin of 9, platelets of 207. Chem istries reveal the BUN of 10 and creatinine of 0.7. The patient's procalcitonin is 2.66. Stool for occult is negative. Microbiology reveals the patient had Enterococcus faecalis in the blood. The harrison harpreet's stool for C. diff antigen and toxin are both positive. The patient also had gram-positive co cci in the urine; waiting for further identification. Currently on ampicillin, Flagyl, Rocephin and p.o. vancomycin with repeat blood cultures negative. Dr. Cavazos's note is reviewed. ASSESSMENT AND PLAN: This is an 85-year-old female with severe sepsis, enterococcus bacteremia secon jan probably to urine as the source on ampicillin and ceftriaxone and with pseudomembranous colitis on IV Flagyl and p.o. vancomycin; waiting for identification of gram-positive cocci in the urine. Ec hocardiogram is negative for any vegetations or endocarditis. Today is day #4 of ampicillin for Ente rococcus bacteremia and ceftriaxone for Enterococcus bacteremia. Will follow with you. Rahat Rhoades MD cc: [phone] TT: 08/12/2016 17:49:07 Confirmation # [id number] Dictation # [id number] angelia
[2016-08-12] MEDS ORDERED: POLYETHYLENE GLYCOL 3350 17 GM/Dose PACKET PO SCH (18:00)
--- NOTE | 2016-08-12 18:28 | PN ---
DATE: 08/12/2016 SUBJECTIVE: The patient has no complaints of any chest pain. We know she is confused. She has no h eadaches or dizziness. PHYSICAL EXAMINATION: VITAL SIGNS: Temperature is 97.3, pulse of 101, blood pressure 148/75, respirations 20. GENERAL: The patient comfortable, in no acute distress. HEENT: Anicteric sclerae. Moist mucosa. NECK: No JVD or adenopathy. CARDIAC: S1/S2. No murmurs. No rubs. Regular. RESPIRATORY: Clear to auscultation bilaterally. No wheezes, rales, or rhonchi. Good air entry. ABDOMEN: Bowel sounds are positive, soft, nontender, and nondistended. EXTREMITIES: No edema. Has 1+ pulses. LABS: White count of 16.6, hemoglobin 9.1, potassium 3.4, creatinine 0.7. ASSESSMENT: 1. Colitis. 2. Hypokalemia. 3. Sepsis secondary to enterococcus. 4. Hypertension. 5. Atrial fibrillation. 6. Delirium. 7. Chronic obstructive pulmonary disease. 8. Dyslipidemia. PLAN: The patient is slowly improving. Her white count is continuing to decrease. Her K is mildly low. She is tolerating her diet. She is on ampicillin for antibiotics. She is going to continue wi th heparin for DVT prophylaxis. She is on Rocephin for antibiotics. She is on Xopenex. She is on Z ofran as needed. Overall prognosis remains guarded. Tommie Xavier MD cc: [id number] TT: 08/12/2016 18:27:10 Confirmation # [id number] Dictation # [id number] mn
--- NOTE | 2016-08-12 22:13 | CARD ---
APPROVED REPORT EKG Measurement Heart [id number] <Conclusion> Atrial fibrillation with rapid ventricular response with premature ventricular or aberrantly conducted complexes ST & T wave abnormality, consider lateral ischemia or digitalis effect Abnormal ECG
[2016-08-13] MEDS: Ampicillin 2 GM in Sodium Chloride 0.9% 100 ML IVPB SCH ×4 (00:11→17:22)
[2016-08-13] MEDS: Levalbuterol 0.63 MG/3 ML Inhal Soln UD IH SCH ×4 (01:29→19:36)
[2016-08-13] MEDS: metroNIDAZOLE IV 500 mg/100 ml 500 MG/100 ML BAG IVPB SCH ×3 (06:01→21:47)
[2016-08-13 07:36] LABS: HEMATOCRIT 30.2 % (36.0-48.0); MEAN CORPUSCULAR HEMOGLOBIN 26.5 pg (25.0-35.0); MEAN CORPUSCULAR HGB CONC 30.8 g/dl (31.0-37.0); MEAN PLATELET VOLUME 11.9 fl (7.0-11.0); RED CELL DISTRIBUTION WIDTH 19.1 % (11.5-14.5); WHITE BLOOD COUNT 14.5 10^3/ul (4.5-11.0)
[2016-08-13] MEDS: Budesonide 0.5 mg/2 ml Inhal Susp UD IH SCH ×2 (07:37→19:36)
[2016-08-13 07:59] LABS: ALB/GLOB RATIO 0.9 (1.1-1.8); ALKALINE PHOSPHATASE 85 U/L (38-133); ALT/SGPT 38 U/L (7-56); AST/SGOT 22 U/L (15-39); BILIRUBIN,TOTAL 1.1 mg/dL (0.2-1.3); BLOOD UREA NITROGEN 10 mg/dL (7-21); CALCIUM 7.7 mg/dL (8.4-10.5); CARBON DIOXIDE 26 mmol/L (21-33); CHLORIDE 106 mmol/L (98-107); GFR AFRICAN-AMERICAN > 60; GLUCOSE,RANDOM 97 mg/dL (70-110); POTASSIUM 3.4 mmol/L (3.6-5.0); SODIUM 138 mmol/L (132-148); TOTAL PROTEIN 5.2 g/dL (5.8-8.3)
--- NOTE | 2016-08-13 08:20 | PN ---
DATE: 08/12/2016 SUBJECTIVE: This patient was seen and evaluated earlier today. The patient appears to be comfortabl e, but confused. PHYSICAL EXAMINATION: VITAL SIGNS: Temperature is 97.8, pulse , blood pressure is 148/75. HEENT: Atraumatic, anicteric. NECK: Supple. HEART: S1, S2 heard. LUNGS: Bilateral air entry present. ABDOMEN: Soft. Mild tenderness on deep palpation in the epigastric and right upper and left lower q uadrant areas. EXTREMITIES: No cyanosis, no clubbing. LABORATORY DATA: WBC count has come down to 16.6, hemoglobin 9.1, hematocrit 29.4, platelets is 207, BUN is creatinine is .7, 3. . IMPRESSION: This 85-year-old patient admitted with impaction, constipation now improving. ___ __ is colitis and also sepsis secondary to the enterococcus. The patient has history of atrial fibri llation, chronic obstructive pulmonary disease. RECOMMENDATION: 1. Continue the antibiotics p.o., Flagyl and vancomycin. Also, the patient is complete antibi otic course as per the ID. 2. advance the diet. soft diet with stool softeners. The patient has been having bowel movements now. Thank you very much for allowing me to participate in the care of the patient. Rohan Cavazos MD cc: [phone] TT: 08/12/2016 23:57:58 Confirmation # [id number] Dictation # [id number] mn
--- NOTE | 2016-08-13 08:33 | PN ---
DATE: 08/13/2016 PULMONARY NOTE SUBJECTIVE: The patient appears comfortable this morning. She is not short of breath at rest. PHYSICAL EXAMINATION: VITAL SIGNS: Last temperature recorded is 97.3. Pulse this morning is approximately 80, respirations 18/20, blood pressure 148/75. Oxygen saturation on nasal cannula is 96%. HEENT: Normocephalic, atraumatic. No JVD. CARDIOVASCULAR: Systolic ejection murmur at the lower left sternal border. No S3 gallop. LUNGS: Decreased breath sounds at the bases. No rhonchi. No wheezing. EXTREMITIES: No clubbing, cyanosis, or edema. Calves are nontender to palpation. GASTROINTESTINAL: Abdomen is soft. It is much less distended and much less tender to palpation. Bowel sounds are improved. SKIN: No acute rash. NEUROLOGIC: Limited at the present time. IMPRESSION: 1. Constipation. Colitis. 2. Sepsis syndrome. 3. Chronic obstructive pulmonary disease. 4. Congestive heart failure. 5. Atrial fibrillation. PLAN: The patient appears comfortable this morning. She is not short of breath at rest. She does state to feeling much better overall. On physical exam, there is no significant bronchospasm noted. In addition, there is no significant alveolar arterial gradient. I will continue with the current nebulizer treatments and inhaled steroids for now. GI and surgical evaluations are noted. The patient remains on antibiotic therapy - as per infectious disease. Temperatures have resolved. The leukocytosis is resolving. Clinical status of the patient is significantly improved - compared to last week. However, the overall status/prognosis of this patient does remain guarded. I will discuss the above with Dr. Xavier. Anastacio Gamez MD cc: [phone] TT: 08/13/2016 08:32:36 Confirmation # [id number] Dictation # [id number] jn NAIN
--- NOTE | 2016-08-13 08:57 | CP.PCM.PN ---
<Niels Ruff - Last Filed: 08/13/16 08:54> Subjective - Date & Time of Evaluation Date of Evaluation: 08/13/16 Time of Evaluation: 08:54 - Subjective Subjective: General Surgery Progress Note Patient seen and examined. No acute events overnight. Multiple watery BM's over past 24hrs. Patient is afebrile. Tolerating heart healthy diet. Objective - Vital Signs/Intake and Output Vital Signs (last 24 hours): Temp Pulse Resp BP Pulse Ox 97.9 F 70 20 145/77 95 08/13/16 08:23 08/13/16 08:23 08/13/16 08:23 08/13/16 08:23 08/13/16 08:23 - Medications Medications: Current Medications Acetaminophen (Tylenol 650 Mg Supp) 650 mg RC Q4H PRN PRN Reason: Fever >100.4 F Budesonide (Pulmicort Respules) 0.5 mg IH [id number] [facility] Last Admin: 08/13/16 07:37 Dose: 0.5 mg Docusate Sodium (Colace) 100 mg PO BID [facility] Last Admin: 08/12/16 18:06 Dose: 100 mg Heparin Sodium (Porcine) (Heparin) 5,000 units SC Q12 [facility] PRN Reason: Protocol Last Admin: 08/12/16 22:09 Dose: 5,000 units Metronidazole (Flagyl) 500 mg in 100 mls @ 100 mls/hr IVPB Q8 [facility] PRN Reason: Protocol Last Admin: 08/13/16 06:01 Dose: 100 mls/hr Ampicillin 2 gm/ Sodium (Chloride) 100 mls @ 200 mls/hr IVPB Q6 [facility] PRN Reason: Protocol Stop: 09/07/16 18:01 Last Admin: 08/13/16 06:00 Dose: 200 mls/hr Ceftriaxone Sodium (Rocephin 2 Gm Ivpb) 2 gm in 100 mls @ 100 mls/hr IVPB DAILY [facility] PRN Reason: Protocol Stop: 09/08/16 10:01 Last Admin: 08/12/16 09:36 Dose: 100 mls/hr Levalbuterol HCl (Xopenex) 0.63 mg IH Q2 PRN PRN Reason: Shortness of Breath Levalbuterol HCl (Xopenex) 0.63 mg IH [id number] [facility] Last Admin: 08/13/16 07:37 Dose: 0.63 mg Ondansetron HCl (Zofran Inj) 4 mg IVP Q6 PRN PRN Reason: Nausea/Vomiting Pantoprazole Sodium (Protonix Inj) 40 mg IV DAILY [facility] Last Admin: 08/12/16 09:35 Dose: 40 mg Vancomycin HCl (Vancocin 25 Mg/Ml (Oral Use)) 500 mg PO QID [facility] PRN Reason: Protocol Last Admin: 08/12/16 22:11 Dose: 500 mg - Labs Labs: 08/13/16 06:30 08/13/16 06:30 PT 10.8 Seconds (9.9-11.8) 08/08/16 05:30 INR 1.00 (0.93-1.08) 08/08/16 05:30 APTT 29.2 Seconds (23.7-30.8) 08/08/16 05:30 - Constitutional Appears: Non-toxic, No Acute Distress - Head Exam Head Exam: ATRAUMATIC, NORMOCEPHALIC - Eye Exam Eye Exam: EOMI, PERRL - ENT Exam ENT Exam: Mucous Membranes Moist - Neck Exam Neck Exam: Full ROM, Normal Inspection - Respiratory Exam Respiratory Exam: Clear to Ausculation Bilateral. absent: Rales, Wheezes - Cardiovascular Exam Cardiovascular Exam: REGULAR RHYTHM, +S1, +S2 - GI/Abdominal Exam GI & Abdominal Exam: Soft, Normal Bowel Sounds. absent: Distended, Guarding - Extremities Exam Extremities Exam: Full ROM. absent: Calf Tenderness - Neurological Exam Neurological Exam: Alert, Awake - Psychiatric Exam Psychiatric exam: Normal Affect, Normal Mood - Skin Skin Exam: Normal Color, Warm Assessment and Plan - Assessment and Plan (Free Text) Assessment: 85F w. C.Diff colitis with associated diarrhea, leukocytosis - Miralax discontinued -c/w colace -tolerating heart healthy diet -c/w abx per ID recommendations -no surgical intervention at this time. - will continue to follow this patient peripherally -cherri pavon attending <Felix Varela - Last Filed: 11/13/16 23:52> Objective - Vital Signs/Intake and Output Vital Signs (last 24 hours): Temp Pulse Resp BP Pulse Ox 97.1 F L 92 H 20 105/65 98 08/16/16 12:00 08/16/16 14:57 08/16/16 12:00 08/16/16 14:57 08/16/16 05:20 - Labs Labs: 08/16/16 06:30 08/16/16 06:30 PT 10.8 Seconds (9.9-11.8) 08/08/16 05:30 INR 1.00 (0.93-1.08) 08/08/16 05:30 APTT 29.2 Seconds (23.7-30.8) 08/08/16 05:30 Assessment and Plan - Assessment and Plan (Free Text) Plan: Patient was seen and examined by me. I agree with assessment and plan as per resident's note.
[2016-08-13] MEDS: cefTRIAXone 2 GM IN NS 2 GM/100 ML BAG IVPB SCH (09:04)
[2016-08-13] MEDS: Vancomycin 25 MG/ML PO SCH ×4 (09:05→21:46)
[2016-08-13] MEDS ORDERED: Potassium Chloride 20 mEq ER Tab PO ONE (09:05)
--- NOTE | 2016-08-13 09:19 | PN ---
DATE: 08/13/2016 SUBJECTIVE: The patient is confused. She has no complaints of any headaches, no dizziness. PHYSICAL EXAMINATION: VITAL SIGNS: Temperature is 97.9, pulse is 70, blood pressure is 145/77, respirations 20. GENERAL: The patient comfortable, in no acute distress. HEENT: Anicteric sclerae. Moist mucosa. NECK: No JVD or adenopathy. CARDIAC: S1/S2. No murmurs. No rubs. Regular. RESPIRATORY: Clear to auscultation bilaterally. No wheezes, rales, or rhonchi. Good air entry. ABDOMEN: Bowel sounds are positive, soft, nontender, and nondistended. EXTREMITIES: No edema. Has 1+ pulses. LABORATORIES: White count of 14.5, hemoglobin 9.3. Creatinine is 3.4. ASSESSMENT: 1. Hypokalemia. 2. Colitis. 3. Sepsis, secondary to enterococcus. 4. Hypertension. 5. Atrial fibrillation. 6. Chronic obstructive pulmonary disease. 7. Dyslipidemia. PLAN: The patient is improving. The white count is continuing to improve. The patient has a potass ium that is low at 3.4. I will replace the patient's potassium. She is not eating well. She is on Rocephin for antibiotics. She is on Pulmicort. This will be continued. She is on heparin for deep venous thrombosis prophylaxis. Tommie Xavier MD cc: [id number] TT: 08/13/2016 09:18:43 Confirmation # [id number] Dictation # [id number] en
--- NOTE | 2016-08-13 17:08 | PN ---
DATE: 08/13/2016 SUBJECTIVE: The patient was seen and examined at the bedside earlier this afternoon. The patient was eating lunch. She does not complain of any nausea, vomiting or abdominal pain. The patient is reported to be having bowel movements. No reports of overt GI bleed. The patient looks like she is short of breath, but she is not in any distress. Bowel movements still watery. PHYSICAL EXAMINATION: HEENT: Sclerae are anicteric. NECK: Supple. CARDIAC: S1, S2. LUNGS: Decreased breath sounds, but good air entry, but positive for rhonchi, ( +) expiratory wheeze. ABDOMEN: With bowel sounds, soft, nontender, no organomegaly. EXTREMITIES: No edema. NEUROLOGIC: Awake and alert. ASSESSMENT: Improving sepsis secondary to enterococcus. She also has Clostridium difficile colitis positive antigen and toxin. Hypokalemia, atrial fibrillation, chronic obstructive pulmonary disease, dyslipidemia. PLAN: Continue diet as tolerated. White count continues to decrease. She is on IV antibiotics of ampicillin, ceftriaxone. She is also getting IV Flagyl and is on oral vancomycin. We will continue GI prophylaxis. She is on breathing treatments and on DVT prophylaxis of heparin. She is going for chest x-ray and will be started on Lasix. The patient's potassium was replaced. Monitor electrolytes. The patient was seen and case discussed with Dr. Cavazos. Dorothea Liza VIOLET cc: [id number] TT: 08/13/2016 17:07:46 Confirmation # [id number] Dictation # [id number] ln MTDD
--- NOTE | 2016-08-13 18:16 | RAD ---
HISTORY: congestion COMPARISON: Chest x-ray performed 08/11/16 TECHNIQUE: Chest, one view. FINDINGS: Examination limited by habitus. LUNGS: Moderate right and small left pleural effusion. Moderate to severe interstitial prominence may reflect infection or edema. No definite pneumothorax. Please note that chest x-ray has limited sensitivity for the detection of pulmonary masses. CARDIOVASCULAR: Cardiomegaly. Atherosclerotic calcifications. OSSEOUS STRUCTURES: Demineralization. Degenerative changes. VISUALIZED UPPER ABDOMEN: Unremarkable. OTHER FINDINGS: None. IMPRESSION: Moderate right and small left pleural effusion. Moderate to severe interstitial prominence may reflect infection or edema. Cardiomegaly. Atherosclerotic calcifications.
--- NOTE | 2016-08-13 18:58 | CP.PCM.PN ---
Subjective - Date & Time of Evaluation Date of Evaluation: 08/13/16 Time of Evaluation: 17:50 - Subjective Subjective: Patient seen stat for c/o shortness of breath since about 4pm She was given a nebulizer treatment with little improvement. Her Sob got worse,pt was referred to me for evaluation. She denies any c/o chest pain,nausea,vomiting or any other complaints. VS: BP141/63 RR 26 T 97.6 HR 148/min,irregular O2 sat on 2L/min is 95% Chart reviewed.BNP today was 4860;CXray from earlier today showed bilateral effusions R > L,and changes suggestive of CHF. PMH:HTN,AFib,Dyslipidemia Objective - Vital Signs/Intake and Output Vital Signs (last 24 hours): Temp Pulse Resp BP Pulse Ox 97.9 F 70 20 145/73 95 08/13/16 08:23 08/13/16 08:23 08/13/16 08:23 08/13/16 16:16 08/13/16 08:23 Intake and Output: 08/13/16 08/13/16 06:59 18:59 Intake Total 240 Balance 240 - Medications Medications: Current Medications Acetaminophen (Tylenol 650 Mg Supp) 650 mg RC Q4H PRN PRN Reason: Fever >100.4 F Budesonide (Pulmicort Respules) 0.5 mg IH [id number] [facility] Last Admin: 08/13/16 07:37 Dose: 0.5 mg Docusate Sodium (Colace) 100 mg PO BID [facility] Last Admin: 08/13/16 17:22 Dose: 100 mg Furosemide (Lasix) 40 mg IVP Q12 [facility] Heparin Sodium (Porcine) (Heparin) 5,000 units SC Q12 [facility] PRN Reason: Protocol Last Admin: 08/13/16 09:04 Dose: 5,000 units Metronidazole (Flagyl) 500 mg in 100 mls @ 100 mls/hr IVPB Q8 [facility] PRN Reason: Protocol Last Admin: 08/13/16 14:53 Dose: 100 mls/hr Ampicillin 2 gm/ Sodium (Chloride) 100 mls @ 200 mls/hr IVPB Q6 [facility] PRN Reason: Protocol Stop: 09/07/16 18:01 Last Admin: 08/13/16 17:22 Dose: 200 mls/hr Ceftriaxone Sodium (Rocephin 2 Gm Ivpb) 2 gm in 100 mls @ 100 mls/hr IVPB DAILY [facility] PRN Reason: Protocol Stop: 09/08/16 10:01 Last Admin: 08/13/16 09:04 Dose: 100 mls/hr Levalbuterol HCl (Xopenex) 0.63 mg IH Q2 PRN PRN Reason: Shortness of Breath Last Admin: 08/13/16 16:27 Dose: 0.63 mg Levalbuterol HCl (Xopenex) 0.63 mg IH [id number] [facility] Last Admin: 08/13/16 13:26 Dose: 0.63 mg Ondansetron HCl (Zofran Inj) 4 mg IVP Q6 PRN PRN Reason: Nausea/Vomiting Pantoprazole Sodium (Protonix Inj) 40 mg IV DAILY [facility] Last Admin: 08/13/16 09:04 Dose: 40 mg Vancomycin HCl (Vancocin 25 Mg/Ml (Oral Use)) 500 mg PO QID [facility] PRN Reason: Protocol Last Admin: 08/13/16 17:22 Dose: 500 mg - Labs Labs: 08/13/16 06:30 08/13/16 06:30 PT 10.8 Seconds (9.9-11.8) 08/08/16 05:30 INR 1.00 (0.93-1.08) 08/08/16 05:30 APTT 29.2 Seconds (23.7-30.8) 08/08/16 05:30 - Constitutional Appears: Other (pt is mildly dyspneic) - Head Exam Head Exam: ATRAUMATIC, NORMAL INSPECTION, NORMOCEPHALIC - Eye Exam Eye Exam: PERRL - ENT Exam ENT Exam: Mucous Membranes Moist - Neck Exam Neck Exam: Normal Inspection - Respiratory Exam Respiratory Exam: Rales (crepitations both lower lung hernandez), Wheezes ( scattered), Respiratory Distress (pt is mildly dyspneic) - Cardiovascular Exam Cardiovascular Exam: Tachycardia, Irregular Rhythm - GI/Abdominal Exam GI & Abdominal Exam: Soft, Normal Bowel Sounds. absent: Tenderness - Extremities Exam Extremities Exam: Pedal Edema (trace pedal edema). absent: Calf Tenderness - Neurological Exam Neurological Exam: Alert (but confused at times) - Psychiatric Exam Psychiatric exam: Anxious - Skin Skin Exam: Dry, Warm Assessment and Plan - Assessment and Plan (Free Text) Assessment: CHF AFib with RVR Plan: EKG stat shows Afib with RVR,rate of 141/min Pt given Lasix 40 mg iv stat. Cardizem 10mg IVP followed by drip as ordered. CXray earlier this evening shows CHF with Bilateral effusions,R > L side Discussed case with Dr. Xavier. Consult requested with Dr. Lan. Patient to be transferred to telemetry unit. ABGs & SMA7 ordered stat. Cardiac enzymes ordered stat and q8h x2.
[2016-08-13 19:01] LABS: ALB/GLOB RATIO 0.7 (1.1-1.8); ALKALINE PHOSPHATASE 81 U/L (38-133); ALT/SGPT 40 U/L (7-56); AST/SGOT 23 U/L (15-39); BILIRUBIN,TOTAL 0.9 mg/dL (0.2-1.3); BLOOD UREA NITROGEN 11 mg/dL (7-21); CALCIUM 7.6 mg/dL (8.4-10.5); CARBON DIOXIDE 24 mmol/L (21-33); CHLORIDE 106 mmol/L (98-107); GFR AFRICAN-AMERICAN > 60; GLUCOSE,RANDOM 98 mg/dL (70-110); POTASSIUM 3.3 mmol/L (3.6-5.0); SODIUM 135 mmol/L (132-148); TOTAL PROTEIN 5.4 g/dL (5.8-8.3)
[2016-08-13 19:25] LABS: ARTERIAL BLOOD GAS HCO3 24.4 mmol/L (21-28); ARTERIAL BLOOD GAS O2 CAPACITY 12.7 mL/dl (16-24); ARTERIAL BLOOD GAS O2 CONTENT 12.3 ML/dl (15-23); ARTERIAL BLOOD GAS PH 7.58 (7.35-7.45); ARTERIAL BLOOD HGB O2 SAT 95.4 % (95.0-98.0); CARBOXYHEMOGLOBIN 1.6 % (0.5-1.5); HHB 2.7 % (0-5); METHEMOGLOBIN 0.2 % (0.0-3.0)
--- NOTE | 2016-08-13 19:51 | PN ---
DATE: 08/13/2016 The patient is in bed, in no acute distress, nontoxic. PHYSICAL EXAMINATION: VITAL SIGNS: Temperature is 97, blood pressure is 140/70, respiratory rate of 16. HEENT: Unremarkable. NECK: Supple. LUNGS: Have decreased breath sounds. ABDOMEN: Soft, nontender. LABORATORY DATA: Reveals a white count of 14,500, hemoglobin of 9, platelets of 217. Chemistries re veal a BUN of 11, creatinine of 0.6. Procalcitonin is 2.6. Urinalysis is noted. Microbiology is no day. Review of the orders reveals the patient to be on ampicillin, Flagyl IV, ceftriaxone and p.o. v ancomycin. ASSESSMENT AND PLAN: This is an 85-year-old female with severe sepsis with enterococcus bacteremia a nd secondary probably to urine as the source with a gram-positive cocci identified in the urine but n ot finalized, also with pseudomembranous colitis. On IV Flagyl and p.o. vancomycin, on IV ampicillin and ceftriaxone for the enterococcus bacteremia. Today is day #5 of antibiotics. Overall, prognosi s is quite poor for this patient. Dr. Xavier's note is reviewed. Will follow closely with you. Thai munguia consider supportive care for this patient. Rahat Rhoades MD cc: [id number] TT: 08/13/2016 19:50:44 Confirmation # [id number] Dictation # [id number] rudy
[2016-08-13] MEDS ORDERED: Calcium Gluconate 1,000 MG in Sodium Chloride 0.45% 1,000 ML IV SCH (23:45)
[2016-08-14] MEDS: diltiaZEM IVPB 100mg in NS 100 ML IV PRN ×2 (00:27→08:38)
[2016-08-14] MEDS: Ampicillin 2 GM in Sodium Chloride 0.9% 100 ML IVPB SCH ×5 (00:28→23:53)
--- NOTE | 2016-08-14 01:45 | PN ---
DATE: 08/13/2016 ADDENDUM This is an addendum to the GI progress report dictated by Dorothea De Jesus NP. The patient is tolerating the diet now. Abdomen is soft. There is no tenderness. The patient is C. diff positive for both antigen and the toxin. Continue the treatment with the vancomycin and Flagyl. The patient does have enterococcus bacteremia in the urinalysis. The patient is on antibiotics as per ID. We will continue to closely follow up with her care. Thank you very much for allowing me to participate in the care of the patient. Rohan Cavazos MD cc: [id number] TT: 08/14/2016 01:44:56 Confirmation # [id number] Dictation # [id number] tn MTDD
[2016-08-14] MEDS: Levalbuterol 0.63 MG/3 ML Inhal Soln UD IH SCH ×4 (02:57→19:38)
[2016-08-14 04:43] LABS: HEMATOCRIT 28.6 % (36.0-48.0); MEAN CELL VOLUME 86.1 fL (80.0-105.0); MEAN CORPUSCULAR HEMOGLOBIN 26.8 pg (25.0-35.0); MEAN CORPUSCULAR HGB CONC 31.1 g/dl (31.0-37.0); MEAN PLATELET VOLUME 11.4 fl (7.0-11.0); RED CELL DISTRIBUTION WIDTH 19.3 % (11.5-14.5); WHITE BLOOD COUNT 12.4 10^3/ul (4.5-11.0)
[2016-08-14 06:00] LABS: BLOOD UREA NITROGEN 11 mg/dL (7-21); CALCIUM 7.6 mg/dL (8.4-10.5); CARBON DIOXIDE 30 mmol/L (21-33); CHLORIDE 105 mmol/L (98-107); GFR AFRICAN-AMERICAN > 60; GLUCOSE,RANDOM 99 mg/dL (70-110); SODIUM 140 mmol/L (132-148)
[2016-08-14] MEDS: metroNIDAZOLE IV 500 mg/100 ml 500 MG/100 ML BAG IVPB SCH ×3 (06:00→21:13)
[2016-08-14 06:03] LABS: TROPONIN I 0.02 ng/mL
--- NOTE | 2016-08-14 07:31 | PN ---
DATE: 08/14/2016 SUBJECTIVE: The patient is confused. She has no headaches, no dizziness. She says her shortness of breath is better than yesterday. The events of yesterday were noted. PHYSICAL EXAMINATION: VITAL SIGNS: Temperature is 98.2, pulse of 138, blood pressure is 126/62, respiration is 22. GENERAL: The patient comfortable, in no acute distress. HEENT: Anicteric sclerae. Moist mucosa. NECK: No JVD or adenopathy. CARDIAC: S1/S2. No murmurs. No rubs. Regular. RESPIRATORY: Clear to auscultation bilaterally. No wheezes, rales, or rhonchi. Good air entry. ABDOMEN: Bowel sounds are positive, soft, nontender, and nondistended. EXTREMITIES: No edema. Has 1+ pulses. LABORATORIES: White count of 12.4, hemoglobin 8.9. Creatinine is 0.6, potassium is 3.4. . ASSESSMENT: 1. Hypokalemia. 2. Colitis. 3. Sepsis, secondary to enterococcus. 4. Acute congestive heart failure, secondary to diastolic dysfunction. 5. Pulmonary hypertension. 6. Tricuspid regurgitation. 7. Mitral regurgitation. 8. Chronic obstructive pulmonary disease. 9. Atrial fibrillation. 10. Dyslipidemia. PLAN: The patient is currently on telemetry. She is receiving Cardizem drip because of the rapid at rial fibrillation. The patient is on antibiotics with ampicillin, is going to continue the Rocephin as well for the enterococcus. The patient is on vancomycin p.o. for Clostridium difficile. The ruddy ent is on Flagyl as well. She is on heparin for deep venous thrombosis prophylaxis. She is on a hea rt healthy diet. Tommie Xavier MD cc: [id number] TT: 08/14/2016 07:31:26 Confirmation # [id number] Dictation # [id number] en
--- NOTE | 2016-08-14 07:53 | PN ---
DATE: 08/14/2016 The patient appears comfortable this morning. She is mildly short of breath, but in no acute distress. PHYSICAL EXAMINATION: VITAL SIGNS: Temperature is 98.2, pulse on the monitor is 101, respiratory rate 20/22, blood pressure 134/77. Oxygen saturation on nasal cannula is between 92%-98%. HEENT: Normocephalic, atraumatic. No JVD. CARDIOVASCULAR: Systolic ejection murmur at the lower left sternal border. Positive S3 gallop. LUNGS: Decreased breath sounds at the bases. No rhonchi. No wheezing. EXTREMITIES: No clubbing, cyanosis, or edema. Calves are nontender to palpation. GASTROINTESTINAL: Abdomen is soft. It is minimally distended and tender to palpation. Bowel sounds are improved. SKIN: No acute rash. NEUROLOGIC: Limited at the present time. PERTINENT LABORATORY DATA: Chest x-ray was done yesterday afternoon and reviewed. The x-ray is consistent with pulmonary edema, with small bilateral pleural effusions. B-type natriuretic peptide was also done yesterday. It is significantly elevated at 4860. Lastly, EKG was done yesterday afternoon. Results: Rapid atrial fibrillation. IMPRESSION: 1. Worsening congestive heart failure. 2. Rapid atrial fibrillation. 3. Chronic obstructive pulmonary disease. 4. Sepsis syndrome. 5. Colitis. PLAN: I did review the chart at length. I have also discussed the case with the nursing staff at length. Apparently, the patient was transferred to telemetry yesterday -- because of increasing shortness of breath and rapid heart rate. Results of the workup were consistent with rapid atrial fibrillation and worsening congestive heart failure. The patient was given several doses of Lasix and is now on a Cardizem drip. She appears more comfortable this morning. On physical exam, no significant bronchospasm is noted. I will continue with the current nebulizer treatments and inhaled steroids for now. Cardiology evaluation with Dr. Lan has been ordered. The patient does appear clinically improved this morning -- compared to yesterday. However, again, the future status/prognosis of this very elderly patient remains very guarded. I will discuss the above with Dr. Xavier. Anastacio Gamez MD cc: [phone] TT: 08/14/2016 07:52:17 Confirmation # [id number] Dictation # [id number] en MTDD
[2016-08-14] MEDS: Budesonide 0.5 mg/2 ml Inhal Susp UD IH SCH ×2 (08:11→19:38)
[2016-08-14] MEDS: cefTRIAXone 2 GM IN NS 2 GM/100 ML BAG IVPB SCH (09:22)
[2016-08-14] MEDS: Potassium Chloride 20 mEq ER Tab PO ONE ×2 (09:23→09:26)
[2016-08-14] MEDS: Vancomycin 25 MG/ML PO SCH ×4 (09:24→21:14)
[2016-08-14] MEDS: Potassium Chloride 20 mEq ER Tab PO SCH ×3 (09:24→17:36)
[2016-08-14] MEDS ORDERED: Digoxin 500 mcg/2ml (0.5 mg/2ml) Inj IVP ONE (10:20)
--- NOTE | 2016-08-14 10:39 | CON ---
DATE: 08/14/2016 REASON FOR CONSULTATION AND FOLLOWUP: Hypertension, chronic atrial fibrillation, COPD, CVA, was in t ransitional care unit, developed nausea, vomiting and transferred to acute medical floor. 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 After being sta bilized, the patient was transferred to transitional care unit for the continuity of the care where t he patient later developed nausea, vomiting and transferred to medical floor. Denies any chest pain, shortness of breath, any palpitation. PAST MEDICAL HISTORY: Significant for COPD, CVA, chronic atrial fibrillation on Eliquis, hypertensio n, hyperlipidemia, congestive heart failure, severe mitral regurg, severe tricuspid regurgitation. Previous cardiac workup as follows: The patient had echocardiography 04/2016 that shows normal eject ion fraction, severe mitral regurg, severe tricuspid regurgitation. Stress test 09/18/2014 was negati ve for ischemia. The patient had repeat echocardiography done on 08/09/____, 4 days from now that sh ows ejection fraction 55%, trace aortic regurgitation, moderate to severe mitral regurgitation, moder ate tricuspid regurgitation, RV systolic pressure of 68, moderate pulmonary hypertension, RVSP 68 mmH g. ALLERGIES: No known drug allergy. CURRENT MEDICATIONS: The patient is taking aspirin 81 mg daily, Cardizem-CD 180 mg, Eliquis 2.5 mg d aily, Lasix 40 mg daily, potassium, pantoprazole, oxycodone, methylprednisone, atenolol, Xanax, albut jesús and Xopenex inhaler. REVIEW OF SYSTEMS: As per HPI. PHYSICAL EXAMINATION: VITAL SIGNS: Temperature afebrile, heart rate 119, blood pressure 134/77. HEENT: PERRLA. Extraocular muscles intact. NECK: Supple. No carotid bruits. No thyromegaly. CHEST: Clear to auscultation. HEART: S1, S2 regular. ABDOMEN: Soft. EXTREMITIES: Clubbing and cyanosis negative: LABORATORY DATA: Blood workup as follows: WBC 12.5, hemoglobin 8.9, hematocrit 28.6, platelet count 219. Chemistry shows sodium 140, potassium 3, chloride 105, carbon dioxide 30, anion gap of 8, BUN 11, creatinine 0.7. BNP 4180. IMPRESSION: Severe leukocytosis. At one point, WBC was 48,000, now has been decreased to 48, possib ly Clostridium difficile colitis, anemia, octogenarian, chronic atrial fibrillation, preserved left v entricular function, moderate to severe mitral regurgitation, moderate to severe tricuspid regurgitat ion, pulmonary hypertension, atrial fibrillation. RECOMMENDATION: Continue Eliquis. Continue Cardizem started last night because of A-fib with rapid rate. We will change to Cardizem p.o., give extra dose of digoxin to control the heart rate. Contro l underlying sepsis. We will follow with you. Thank you, Dr. Xavier. Discussed with doctor will resume back Eliquis if H and H remains stable. Repeat H and H. We will do another guaiac test and if guaiac is negative and H and H remain stable, we will resume back Eliquis. We will follow with you. Amari Lan MD cc: [id number] TT: 08/14/2016 10:39:00 Confirmation # [id number] Dictation # [id number] tn
[2016-08-14 12:20] VITALS: PULSE 118
[2016-08-14 12:45] LABS: TROPONIN I 0.02 ng/mL
--- NOTE | 2016-08-14 12:45 | PN ---
DATE: 08/14/2016 Seen and examined at the bedside this afternoon. She denies any shortness of breath, chest pains. S ays the breathing is a little better. She is reported to be incontinent of urine and stool. No repo rts of any bleeding. She was transferred from to telemetry for increased heart rate and started on IV Cardizem drip. VITAL SIGNS: Temperature is 98.2, blood pressure is 134/77, heart rate is 119. LABORATORY DATA: WBC is 12.4. This continues to improve. H and H is 8.9 and 28.6, platelets are 219 . Sodium 140, K is 3.0, BUN 11, creatinine 0.7. Total creatine kinase is low at 34. BNP is 4180. The patient had chest x-ray yesterday and it shows moderate right and small left pleural effusions, m oderate to severe interstitial prominence, may reflect infection or edema. Cardiomegaly and arthrosc lerotic calcifications. PHYSICAL EXAMINATION: HEENT: Sclerae are anicteric. NECK: Supple. CARDIAC: S1, S2. LUNGS: Decreased breath sounds at the bases. No rhonchi or wheezing. ABDOMEN: Positive bowel sounds, softly distended with mild tenderness on palpation. No rebound or g uarding. EXTREMITIES: No edema. ASSESSMENT: The patient with improving sepsis with Clostridium difficile colitis, pulmonary hyperten heidi, acute congestive heart failure, chronic obstructive pulmonary disease, atrial fibrillation. PLAN: Cardizem drip is discontinued and is on oral Cardizem. We will continue the Flagyl IV and ora l vancomycin. She is also hypokalemic. She is receiving potassium replacement. Continue Protonix d aily. She is on DVT prophylaxis. The patient is also on heparin subQ q. 12 and is also on ceftriaxo ne and getting ampicillin. On heart healthy diet. The patient was seen and case discussed with Dr. Mya fleming. Dorothea Liza VIOLET cc: [id number] TT: 08/14/2016 12:44:08 Confirmation # [id number] Dictation # [id number] jasmeet
[2016-08-14] MEDS ORDERED: Potassium Chloride 20 mEq ER Tab PO ONE (14:00)
--- NOTE | 2016-08-14 17:15 | CP.PCM.PN ---
Subjective - Date & Time of Evaluation Date of Evaluation: 08/14/16 Time of Evaluation: 12:05 - Subjective Subjective: Comfortable in bed, afebrile, not in distress. Objective - Vital Signs/Intake and Output Vital Signs (last 24 hours): Temp Pulse Resp BP Pulse Ox 98.2 F 111 H 23 134/77 92 L 08/14/16 06:33 08/14/16 06:33 08/14/16 06:33 08/14/16 06:33 08/14/16 06:33 Intake and Output: 08/14/16 08/14/16 06:59 18:59 Intake Total 815 Output Total 0 Balance 815 - Medications Medications: Current Medications Acetaminophen (Tylenol 650 Mg Supp) 650 mg RC Q4H PRN PRN Reason: Fever >100.4 F Budesonide (Pulmicort Respules) 0.5 mg IH [id number] [facility] Last Admin: 08/14/16 08:11 Dose: 0.5 mg Docusate Sodium (Colace) 100 mg PO BID [facility] Last Admin: 08/13/16 17:22 Dose: 100 mg Furosemide (Lasix) 40 mg IVP Q12 [facility] Last Admin: 08/13/16 23:05 Dose: 40 mg Heparin Sodium (Porcine) (Heparin) 5,000 units SC Q12 TARSHA PRN Reason: Protocol Last Admin: 08/13/16 23:00 Dose: 5,000 units Metronidazole (Flagyl) 500 mg in 100 mls @ 100 mls/hr IVPB Q8 [facility] PRN Reason: Protocol Last Admin: 08/14/16 06:00 Dose: 100 mls/hr Ampicillin 2 gm/ Sodium (Chloride) 100 mls @ 200 mls/hr IVPB Q6 TARSHA PRN Reason: Protocol Stop: 09/07/16 18:01 Last Admin: 08/14/16 05:59 Dose: 200 mls/hr diltiaZEM IVPB 100mg in NS (Cardizem 100mg In Ns) 100 mls @ 5 mls/hr IV .Q20H PRN; Protocol; 5 MG/HR PRN Reason: PER Last Admin: 08/14/16 00:27 Dose: 5 mg/hr, 5 mls/hr Ceftriaxone Sodium (Rocephin 2 Gm Ivpb) 2 gm in 100 mls @ 100 mls/hr IVPB DAILY [facility] PRN Reason: Protocol Stop: 09/08/16 10:01 Levalbuterol HCl (Xopenex) 0.63 mg IH Q2 PRN PRN Reason: Shortness of Breath Last Admin: 08/13/16 16:27 Dose: 0.63 mg Levalbuterol HCl (Xopenex) 0.63 mg IH [id number] [facility] Last Admin: 08/14/16 08:11 Dose: 0.63 mg Ondansetron HCl (Zofran Inj) 4 mg IVP Q6 PRN PRN Reason: Nausea/Vomiting Pantoprazole Sodium (Protonix Inj) 40 mg IV DAILY [facility] Last Admin: 08/13/16 09:04 Dose: 40 mg Potassium Chloride (K-Dur 20 Meq Er Tab) 20 meq PO TID [facility] Stop: 08/16/16 10:01 Vancomycin HCl (Vancocin 25 Mg/Ml (Oral Use)) 500 mg PO QID [facility] PRN Reason: Protocol Last Admin: 08/13/16 21:46 Dose: 500 mg - Labs Labs: 08/14/16 04:30 08/14/16 04:30 PT 10.8 Seconds (9.9-11.8) 08/08/16 05:30 INR 1.00 (0.93-1.08) 08/08/16 05:30 APTT 29.2 Seconds (23.7-30.8) 08/08/16 05:30 - Constitutional Appears: Non-toxic, No Acute Distress - Head Exam Head Exam: NORMAL INSPECTION - ENT Exam ENT Exam: Mucous Membranes Moist - Neck Exam Neck Exam: absent: Lymphadenopathy, Meningismus - Respiratory Exam Respiratory Exam: Decreased Breath Sounds - Cardiovascular Exam Cardiovascular Exam: +S1, +S2 - GI/Abdominal Exam GI & Abdominal Exam: Soft. absent: Tenderness Assessment and Plan - Assessment and Plan (Free Text) Plan: Assessment severe sepsis with acute renal failure secondary to colitis and marked constipation, with C.diff. colitis, as well as E. faecalis bacteremia probably urine as the source HTN dyslipidemia S/P cerebrovascular accident chronic atrial fibrillation COPD CHF Plan continue Rocephin and Ampicillin day 6 and PO Vancomycin and IV Flagyl day 7 ; 2D echo does not show specific vegetations Will continue to follow clinically
--- NOTE | 2016-08-14 22:55 | CARD ---
APPROVED REPORT EKG Measurement Heart [id number] <Conclusion> Atrial fibrillation with rapid ventricular response with premature ventricular or aberrantly conducted complexes Nonspecific ST and T wave abnormality, probably digitalis effect Abnormal ECG
[2016-08-15] MEDS: Levalbuterol 0.63 MG/3 ML Inhal Soln UD IH SCH ×5 (01:40→21:45)
[2016-08-15] MEDS: Ampicillin 2 GM in Sodium Chloride 0.9% 100 ML IVPB SCH ×4 (05:26→23:58)
[2016-08-15] MEDS: metroNIDAZOLE IV 500 mg/100 ml 500 MG/100 ML BAG IVPB SCH ×3 (06:09→21:04)
[2016-08-15 06:24] LABS: HEMATOCRIT 29.6 % (36.0-48.0); MEAN CORPUSCULAR HGB CONC 31.1 g/dl (31.0-37.0); MEAN PLATELET VOLUME 11.6 fl (7.0-11.0); RED CELL DISTRIBUTION WIDTH 20.3 % (11.5-14.5); WHITE BLOOD COUNT 14.2 10^3/ul (4.5-11.0)
[2016-08-15 06:38] LABS: ALB/GLOB RATIO 0.8 (1.1-1.8); ALKALINE PHOSPHATASE 81 U/L (38-133); ALT/SGPT 39 U/L (7-56); AST/SGOT 24 U/L (15-39); BILIRUBIN,TOTAL 0.7 mg/dL (0.2-1.3); BLOOD UREA NITROGEN 14 mg/dL (7-21); CARBON DIOXIDE 28 mmol/L (21-33); CHLORIDE 104 mmol/L (98-107); GFR AFRICAN-AMERICAN > 60; GLUCOSE,RANDOM 93 mg/dL (70-110); MAGNESIUM 1.8 mg/dL (1.7-2.2); PHOSPHOROUS 2.5 mg/dL (2.5-4.5); SODIUM 138 mmol/L (132-148); TOTAL PROTEIN 5.6 g/dL (5.8-8.3)
[2016-08-15 07:07] LABS: MEAN CELL VOLUME 86.8 fL (80.0-105.0)
[2016-08-15] MEDS: Budesonide 0.5 mg/2 ml Inhal Susp UD IH SCH ×3 (07:23→21:45)
--- NOTE | 2016-08-15 07:51 | PN ---
DATE: 08/15/2016 SUBJECTIVE: The patient appears very comfortable this morning. She is not short of breath at rest. OBJECTIVE: VITAL SIGNS: Temperature is 97.6, pulse 80, respirations 18/20, blood pressure 132/74. Oxygen saturation on nasal cannula is 99%. HEENT: Normocephalic, atraumatic. No JVD. CARDIOVASCULAR: Systolic ejection murmur at the lower left sternal border. Positive S3 gallop. LUNGS: Decreased breath sounds at the bases. No rhonchi. No wheezing. EXTREMITIES: No clubbing, cyanosis, or edema. Calves are nontender to palpation. GASTROINTESTINAL: Abdomen is soft. It is not distended and nontender to palpation. Bowel sounds are improved. SKIN: No acute rash. NEUROLOGIC: Limited at the present time. IMPRESSION: 1. Worsening congestive heart failure. 2. Rapid atrial fibrillation. 3. Chronic obstructive pulmonary disease. 4. Sepsis syndrome. 5. Colitis. PLAN: The patient appears very comfortable this morning. She looks much better today than yesterday morning. She is not short of breath at rest. She states she is feeling much better overall. On physical exam, her bronchospasm continues to resolve. In addition, the alveolar arterial gradient also continues to resolve. Oxygen saturation on nasal cannula is currently 99%. I will continue with the current nebulizer treatments and inhaled steroids for now. Input by Dr. Lan (cardiology) is noted. The patient remains on Lasix and Cardizem. I would continue with the antibiotic coverage as per infectious disease. Inputs by GI and infectious disease are also noted. Clinical status of the patient is certainly improved compared to the past few days. However, again, the overall status/prognosis for this elderly woman-- with multiple medical problems - does remain guarded. I will discuss the above with Dr. Xavier. Anastacio Gamez MD cc: [id number] TT: 08/15/2016 07:50:31 Confirmation # [id number] Dictation # [id number] mc [id number]
--- NOTE | 2016-08-15 09:06 | PN ---
DATE: 08/15/2016 DATE: 08/15/2016 SUBJECTIVE: The patient has no complaints of any chest pain, no shortness of breath, no headaches. PHYSICAL EXAMINATION: VITAL SIGNS: Temperature is 97.6, pulse of 80. Blood pressure is 132/74, respirations 20. GENERAL: The patient is comfortable, in no acute distress. HEENT: Anicteric sclerae. Moist mucosa. NECK: No JVD or adenopathy. CARDIAC: S1/S2. No murmurs. No rubs. Regular. RESPIRATORY: Clear to auscultation bilaterally. No wheezes, rales, or rhonchi. Good air entry. ABDOMEN: Bowel sounds are positive, soft, nontender, and nondistended. EXTREMITIES: No edema. Has 1+ pulses. LABORATORY DATA: White count of 14.2, hemoglobin 9.2, creatinine 0.8. ASSESSMENT: 1. Hypokalemia. 2. Colitis. 3. Sepsis secondary to enterococcus. 4. Acute congestive heart failure secondary to diastolic dysfunction. 5. Pulmonary hypertension. 6. Tricuspid regurgitation. 7. Mitral regurgitation. 8. Chronic obstructive pulmonary disease. 9. Atrial fibrillation. 10. Dyslipidemia. PLAN: The patient is currently on antibiotic with amoxicillin. She is on diltiazem for Cardizem. S he is on Flagyl. The patient is going to be on heparin for DVT prophylaxis. She is on Lasix daily. The patient is on Rocephin for antibiotic. She is on atenolol. The patient is on vancomycin for C. diff. She is on a heart-healthy diet. Tommie Xavier MD cc: [id number] TT: 08/15/2016 09:06:14 Confirmation # [id number] Dictation # [id number] pa
[2016-08-15] MEDS: Potassium Chloride 20 mEq ER Tab PO SCH ×3 (10:26→18:35)
[2016-08-15] MEDS: Vancomycin 25 MG/ML PO SCH ×4 (10:29→21:05)
[2016-08-15] MEDS: cefTRIAXone 2 GM IN NS 2 GM/100 ML BAG IVPB SCH (10:29)
--- NOTE | 2016-08-15 16:25 | CP.PCM.PN ---
Subjective - Date & Time of Evaluation Date of Evaluation: 08/15/16 Time of Evaluation: 12:30 - Subjective Subjective: Comfortable in bed, afebrile, not in distress. Objective - Vital Signs/Intake and Output Vital Signs (last 24 hours): Temp Pulse Resp BP Pulse Ox 96 F L 116 H 16 141/57 L 99 08/15/16 12:00 08/15/16 14:51 08/15/16 12:00 08/15/16 14:51 08/15/16 05:55 Intake and Output: 08/15/16 08/15/16 06:59 18:59 Intake Total 521 180 Output Total 2 Balance 519 180 - Medications Medications: Current Medications Acetaminophen (Tylenol 650 Mg Supp) 650 mg RC Q4H PRN PRN Reason: Fever >100.4 F Atenolol (Tenormin) 12.5 mg PO BID [facility] Last Admin: 08/15/16 10:27 Dose: 12.5 mg Budesonide (Pulmicort Respules) 0.5 mg IH [id number] [facility] Last Admin: 08/15/16 07:23 Dose: 0.5 mg Diltiazem HCl (Cardizem) 30 mg PO QID [facility] Last Admin: 08/15/16 14:51 Dose: 30 mg Furosemide (Lasix) 40 mg IVP Q12 [facility] Last Admin: 08/15/16 10:28 Dose: 40 mg Heparin Sodium (Porcine) (Heparin) 5,000 units SC Q12 TARSHA PRN Reason: Protocol Last Admin: 08/15/16 10:27 Dose: 5,000 units Metronidazole (Flagyl) 500 mg in 100 mls @ 100 mls/hr IVPB Q8 TARSHA PRN Reason: Protocol Last Admin: 08/15/16 13:46 Dose: 100 mls/hr Ampicillin 2 gm/ Sodium (Chloride) 100 mls @ 200 mls/hr IVPB Q6 TARSHA PRN Reason: Protocol Stop: 09/07/16 18:01 Last Admin: 08/15/16 12:57 Dose: 200 mls/hr Ceftriaxone Sodium (Rocephin 2 Gm Ivpb) 2 gm in 100 mls @ 100 mls/hr IVPB DAILY [facility] PRN Reason: Protocol Stop: 09/08/16 10:01 Last Admin: 08/15/16 10:29 Dose: 100 mls/hr Levalbuterol HCl (Xopenex) 0.63 mg IH Q2 PRN PRN Reason: Shortness of Breath Last Admin: 08/13/16 16:27 Dose: 0.63 mg Levalbuterol HCl (Xopenex) 0.63 mg IH [id number] [facility] Last Admin: 08/15/16 14:11 Dose: Not Given Ondansetron HCl (Zofran Inj) 4 mg IVP Q6 PRN PRN Reason: Nausea/Vomiting Pantoprazole Sodium (Protonix Inj) 40 mg IV DAILY [facility] Last Admin: 08/15/16 10:27 Dose: 40 mg Potassium Chloride (K-Dur 20 Meq Er Tab) 20 meq PO TID [facility] Stop: 08/16/16 10:01 Last Admin: 08/15/16 14:50 Dose: 20 meq Vancomycin HCl (Vancocin 25 Mg/Ml (Oral Use)) 500 mg PO QID [facility] PRN Reason: Protocol Last Admin: 08/15/16 14:59 Dose: Not Given - Labs Labs: 08/15/16 05:00 08/15/16 05:00 PT 10.8 Seconds (9.9-11.8) 08/08/16 05:30 INR 1.00 (0.93-1.08) 08/08/16 05:30 APTT 29.2 Seconds (23.7-30.8) 08/08/16 05:30 - Constitutional Appears: Non-toxic, No Acute Distress - Head Exam Head Exam: NORMAL INSPECTION - Respiratory Exam Respiratory Exam: Decreased Breath Sounds - Cardiovascular Exam Cardiovascular Exam: +S1, +S2 - GI/Abdominal Exam GI & Abdominal Exam: Soft. absent: Tenderness Assessment and Plan - Assessment and Plan (Free Text) Plan: Assessment severe sepsis with acute renal failure secondary to colitis and marked constipation, with C.diff. colitis, as well as E. faecalis bacteremia probably urine as the source HTN dyslipidemia S/P cerebrovascular accident chronic atrial fibrillation COPD CHF Plan continue Rocephin and Ampicillin day 7 and PO Vancomycin and IV Flagyl day 8 ; 2D echo does not show specific vegetations Will continue to follow clinically
--- NOTE | 2016-08-15 17:15 | PN ---
DATE: 08/15/2016 REASON FOR CONSULTATION AND FOLLOWUP: Hypertension, atrial fibrillation, COPD, CVA. BRIEF CLINICAL HISTORY: This is an 85-year-old female with a past medical history significant for ch ronic atrial fibrillation, on Eliquis, hypertension, hyperlipidemia, COPD, CVA. Admitted to the [facility] floor with acute exacerbation of COPD and decompensated congestive heart failure. After being st abilized, patient transferred to transitional care unit. The patient developed nausea and vomiting, transferred back to medical floor. Denies any chest pain, shortness of breath, any palpitation. PHYSICAL EXAMINATION: VITAL SIGNS: Temperature afebrile, heart rate 80, blood pressure 110/64. HEENT: PERRLA. Extraocular muscles intact. NECK: Supple. No carotid bruits. No thyromegaly. CHEST: Clear to auscultation. HEART: S1, S2 regular. ABDOMEN: Soft. EXTREMITIES: Clubbing, cyanosis negative. BLOOD WORKUP: WBC 14.2, hemoglobin 9.2, hematocrit 26.9, platelet count 220. Chemistry shows sodium 130, potassium 4, chloride 104, carbon dioxide 28, anion gap of 10, BUN , creatinine 0.8, album in 2.4. IMPRESSION: Protein calorie malnutrition which was present on admission, anemia, atrial fibrillation with rapid ventricular rate, now the rate is well controlled, cerebrovascular accident, nausea, vomi ting, improved, history of exacerbation of chronic obstructive pulmonary disease, exacerbation of dec ompensated congestive heart failure. The patient had last echo dated 08/09/2016 that shows severe kelle ral regurgitation, severe tricuspid regurgitation, ejection fraction 55%. The patient had a stress t est 09/18/2014 that was negative for ischemia, pulmonary hypertension, right ventricular systolic pres sure of 68. RECOMMENDATION: Continue Eliquis. Continue Cardizem. Yesterday, changed to Cardizem p.o. Continue atenolol. Off Plavix. Possible for gastrointestinal workup because of nausea, vomiting. Possibly getting endoscopy. Since the patient is more chronic obstructive pulmonary disease, we will change C ardizem to verapamil and will follow with you. Thank you, Dr. Xavier, for providing us the opportunity in taking care of the patient. We will fol low with you. Amari Lan MD cc: [id number] TT: 08/15/2016 17:14:52 Confirmation # [id number] Dictation # [id number] en
--- NOTE | 2016-08-15 17:59 | PN ---
DATE: 08/15/2016 Seen and examined at the bedside earlier today. The patient is awake and alert. Reported to still brina e having watery BM, she had x 2 today. No reports of bleeding. The patient denies nausea, vomiting, abdominal pain. Her breathing is better. VITAL SIGNS: Temperature is 96, blood pressure 141/57, pulse is 80, respirations 16. LABORATORIES: WBC 14.2, H and H is 9.2 and 29.6, platelets is 220. Chem: Sodium 138, K is 4.0. LF Ts are within normal limits. BUN is 14, creatinine 0.8. PHYSICAL EXAMINATION: HEENT: Sclera is anicteric. NECK: Supple. CARDIAC: S1, S2. LUNGS: With decreased breath sounds, but good air entry, no rales or wheeze. ABDOMEN: With bowel sounds, soft, nontender. EXTREMITIES: No edema. ASSESSMENT: The patient with Clostridium difficile colitis, improving sepsis with congestive heart f ailure, atrial fibrillation, chronic obstructive pulmonary disease, history of pulmonary hypertension . PLAN: Continue the diet as tolerated. She is also on IV antibiotics, ceftriaxone, getting ampicilli n, is on Flagyl and oral vancomycin. Continue gastrointestinal prophylaxis, Protonix. The patient i s also on heparin subQ. Seen and examined with Dr. Cavazos. Dorothea Liza VIOLET cc: [id number] TT: 08/15/2016 17:58:28 Confirmation # [id number] Dictation # [id number] en
[2016-08-16] MEDS: Levalbuterol 0.63 MG/3 ML Inhal Soln UD IH SCH ×3 (02:18→14:19)
[2016-08-16] MEDS: metroNIDAZOLE IV 500 mg/100 ml 500 MG/100 ML BAG IVPB SCH ×2 (05:02→14:57)
[2016-08-16] MEDS: Ampicillin 2 GM in Sodium Chloride 0.9% 100 ML IVPB SCH ×2 (05:03→13:08)
[2016-08-16 05:21] VITALS: O2SAT 98
[2016-08-16 07:07] LABS: ALB/GLOB RATIO 0.8 (1.1-1.8); ALKALINE PHOSPHATASE 78 U/L (38-133); ALT/SGPT 38 U/L (7-56); AST/SGOT 19 U/L (15-39); BILIRUBIN,TOTAL 0.7 mg/dL (0.2-1.3); BLOOD UREA NITROGEN 17 mg/dL (7-21); CALCIUM 7.7 mg/dL (8.4-10.5); CARBON DIOXIDE 25 mmol/L (21-33); CHLORIDE 103 mmol/L (95-110); GFR AFRICAN-AMERICAN > 60; GLUCOSE,RANDOM 77 mg/dL (70-110); POTASSIUM 3.5 mmol/L (3.6-5.0); SODIUM 136 mmol/L (132-148); TOTAL PROTEIN 5.3 g/dL (5.8-8.3)
[2016-08-16 07:11] LABS: HEMATOCRIT 30.3 % (36.0-48.0); MEAN CELL VOLUME 87.1 fL (80.0-105.0); MEAN CORPUSCULAR HEMOGLOBIN 26.7 pg (25.0-35.0); MEAN CORPUSCULAR HGB CONC 30.7 g/dl (31.0-37.0); MEAN PLATELET VOLUME 11.9 fl (7.0-11.0); RED CELL DISTRIBUTION WIDTH 20.9 % (11.5-14.5); WHITE BLOOD COUNT 13.3 10^3/ul (4.5-11.0)
[2016-08-16] MEDS: Budesonide 0.5 mg/2 ml Inhal Susp UD IH SCH (08:12)
--- NOTE | 2016-08-16 08:27 | PN ---
DATE: 08/16/2016 SUBJECTIVE: The patient appears very comfortable this morning. She is not short of breath at rest. PHYSICAL EXAMINATION: VITAL SIGNS: Temperature is 97.6, pulse 93, respirations 18, blood pressure 113 /72. Oxygen saturation on nasal cannula is 98%. HEENT: Normocephalic, atraumatic. No JVD. CARDIOVASCULAR: Systolic ejection murmur at the lower left sternal border. Positive S3 gallop. LUNGS: Improved breath sounds at the bases. No rhonchi. No wheezing. EXTREMITIES: No clubbing, cyanosis, or edema. Calves are nontender to palpation. GASTROINTESTINAL: Abdomen is soft. It is not distended and nontender to palpation. Bowel sounds are positive. SKIN: No acute rash. NEUROLOGIC: Limited at the present time. IMPRESSION: 1. Worsening congestive heart failure. 2. Rapid atrial fibrillation. 3. Chronic obstructive pulmonary disease. 4. Sepsis syndrome. 5. Colitis. PLAN: The patient appears very comfortable this morning. She is not short of breath at rest. She states she is feeling much better overall. On physical exam, her bronchospasm continues to resolve. In addition, the alveolar arterial gradient also continues to resolve. I will continue the current nebulizer treatments and inhaled steroids for now. I would continue with the treatment for congestive heart failure and the cardiac arrhythmias as per cardiology. Input by Dr. Lan is noted. The patient remains on Lasix/ afterload reduction. Gastrointestinal and infectious disease evaluations are also noted. Clinical status of the patient is significantly improved - compared to last week. However, again, the overall status/prognosis of this elderly patient - with multiple medical problems - remains very guarded. I will discuss the above with Dr. Xavier. Anastacio Gamez MD cc: [id number] TT: 08/16/2016 08:26:22 Confirmation # [id number] Dictation # [id number] rudy GILLETTE
[2016-08-16] MEDS ORDERED: Lidocaine 2% Inj (20ml) ONE (10:14)
--- NOTE | 2016-08-16 11:03 | DS ---
This is an 85-year-old female who was coming into the hospital and was found to have a colitis second owen to Clostridium difficile. The patient had a significantly elevated white count. The patient did very well and her white count has improved to near normal. Her white count at one point was 66. Garcia zepeda has no complaints of any headaches or dizziness. She does have dementia and at times delirium. Garcia zepeda is going to be discharged to subacute rehabilitation at [facility]. The patient was also found to have sepsis with acute kidney injury and that also has improved. She did get an echo done that showed no vegetations. The patient is on day #8 of Rocephin and ampicillin for her sepsis secondary to entero coccus. She will complete 21 days. No headaches or dizziness. She at times refuses her medications . PHYSICAL EXAMINATION: VITAL SIGNS: Temperature is 97.6, pulse of 93, blood pressure 113/72, respirations 18, O2 saturation 98%. GENERAL: The patient comfortable, in no acute distress. HEENT: Anicteric sclerae. Moist mucosa. NECK: No JVD or adenopathy. CARDIAC: S1/S2. No murmurs. No rubs. Regular. RESPIRATORY: Clear to auscultation bilaterally. No wheezes, rales, or rhonchi. Good air entry. ABDOMEN: Bowel sounds are positive, soft, nontender, and nondistended. EXTREMITIES: No edema. Has 1+ pulses. ASSESSMENT: 1. Hypokalemia. 2. Colitis secondary to Clostridium difficile. 3. Sepsis secondary to enterococcus. 4. Acute congestive heart failure secondary to diastolic dysfunction, resolved. 5. Pulmonary hypertension. 6. Tricuspid regurgitation. 7. Mitral regurgitation. 8. Chronic obstructive pulmonary disease. 9. Atrial fibrillation. 10. Dyslipidemia. 11. Dementia. PLAN: The patient is comfortable. She is on ampicillin for antibiotics. She is receiving Flagyl an d vancomycin. The patient is on Lasix daily. She is receiving atenolol. She is on Zofran as needed . The patient is going to get a PICC line placed today and then she will be discharged to subacute [facility]. She needs antibiotics until 09/08/2016, so this will be more than 2 weeks; this is about 3 wee ks and 2 days of antibiotics. Her last blood cultures were negative on 08/09/2016. Tommie Xavier MD cc: [id number] TT: 08/16/2016 11:02:30 mn
[2016-08-16] MEDS: Potassium Chloride 20 mEq ER Tab PO SCH (11:31)
[2016-08-16] MEDS: Vancomycin 25 MG/ML PO SCH ×2 (11:34→15:01)
[2016-08-16] MEDS: cefTRIAXone 2 GM IN NS 2 GM/100 ML BAG IVPB SCH (11:34)
[2016-08-16 12:17] VITALS: RESP 20; TEMP 97.1
--- NOTE | 2016-08-16 14:01 | PN ---
DATE: 08/16/2016 The patient seen earlier in 263, bed 1. No fevers and no chills, no nausea. PHYSICAL EXAMINATION: VITAL SIGNS: Temperature is 97, blood pressure is 112/70, respiratory rate of 16. HEENT: Unremarkable. NECK: Supple. LUNGS: Decreased breath sounds. HEART: Normal S1, S2. ABDOMEN: Soft, nontender. LABORATORY EXAMINATION: Reveals a white count of 13,300; hemoglobin of 9, platelets of 221. BUN of 17, creatinine of 0.8. Urinalysis is noted. Microbiology is noted. C. diff antigen is positive and C. diff toxin is positive. The patient is on ampicillin, IV Flagyl, ceftriaxone and p.o. vancomycin was dropped from pharmacy. ASSESSMENT AND PLAN: An 85-year-old female with severe sepsis, acute renal failure secondary to coli tis, ____ constipation, pseudomembranous colitis with Enterococcus faecalis bacteremia and most likel y, the urine as the source. Complete with p.o. Flagyl. The echo is negative for any vegetation. Ma y discontinue the other antibiotics and complete with p.o. vancomycin. ____ intravenous Flagyl. Sae tolbert discuss with primary medical doctor. Rahat Rhoades MD cc: [id number] TT: 08/16/2016 14:00:21 Confirmation # [id number] Dictation # [id number] sn
[2016-08-16 15:07] VITALS: BP 105/65; PULSE 92
--- NOTE | 2016-08-16 15:18 | PN ---
DATE: 08/16/2016 Seen and examined at the bedside earlier today. The patient is awake and alert. No complaints of na usea, vomiting or abdominal pain. She is eating. She is tolerating her diet. The patient is report ed to have loose stool, but no bleeding reported. The patient reported to have one movement. VITAL SIGNS: Temperature is 97.6, blood pressure is 109/55, pulse 97, respirations 20. LABORATORY DATA: WBC 13.3, H and H is 9.3 and 30.3. Sodium is 136, K is 3.5, BUN is 17, creatinine is 0.7. Her LFTs are within normal limits. PHYSICAL EXAMINATION: HEENT: Sclerae are anicteric. NECK: Supple. CARDIAC: S1, S2. LUNGS: Decreased breath sounds but good air entry, no rales or wheeze. ABDOMEN: With bowel sounds, soft, nontender. No rebound or guarding. EXTREMITIES: No edema. NEUROLOGIC: Awake and alert, but confused. ASSESSMENT: Improved, sepsis. The patient also with colitis with Clostridium difficile, acute conge stive heart failure, resolving, pulmonary hypertension, atrial fibrillation, chronic obstructive pulm onary disease, dementia. PLAN: The patient is going to get a PICC line for IV antibiotics and [facility] Currently on ampicillin, Flagyl IV and oral vancomycin. She is also on GI prophylaxis and on DVT prophylaxis, heparin and Lasix. Monitor electrolytes. The patient received potassium. Was on p otassium replacement. The patient seen and case discussed with Dr. Cavazos. Dorothea LAZO cc: [id number] TT: 08/16/2016 15:17:44 Confirmation # [id number] Dictation # [id number] jasmeet
[2016-08-16] MEDS ORDERED: Potassium Chloride 20 mEq ER Tab PO ONE (15:25)
--- NOTE | 2016-08-16 15:56 | PN ---
DATE: 08/16/2016 REASON FOR CONSULTATION AND FOLLOWUP: Hypertension, atrial fibrillation, COPD, CVA. 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 After being stabi lized, the patient transferred to transitional care unit where the patient had nausea, vomiting and t ransferred to medical floor. Elevated WBC, now WBC came down, possibly secondary to Clostridium diff icile colitis. Denies any chest pain, shortness of breath, any palpitation. PHYSICAL EXAMINATION: VITAL SIGNS: Temperature afebrile, heart rate 92, blood pressure 105/65. HEENT: PERRLA. Extraocular muscles intact. NECK: Supple. No carotid bruits. No thyromegaly. CHEST: Clear to auscultation. HEART: S1, S2 regular. ABDOMEN: Soft. EXTREMITIES: Clubbing and cyanosis negative. LABORATORY DATA: WBC 13.3, hemoglobin 9.3, hematocrit 30.3, platelet count 221. Chemistry shows sod ium 136, potassium 3.5, chloride 103, carbon dioxide 25, anion gap of 12, BUN 17, creatinine 0.8. To kaitlynn protein 5.3, albumin 2.3, albumin/globulin ratio 0.8. IMPRESSION: Protein-calorie malnutrition, hypokalemia, no evidence of acute myocardial infarction, c hronic atrial fibrillation, anemia, on anticoagulation but now off anticoagulation for gastrointestin al workup, chronic obstructive pulmonary disease, decompensated congestive heart failure, acute on ch ronic systolic dysfunction. Last echocardiogram shows ejection fraction 55% dated 08/09/2016, severe mitral regurgitation, severe tricuspid regurgitation. Last stress test of 09/18/2014 was negative f or ischemia, pulmonary hypertension, right ventricular systolic pressure of 68, right-sided heart jaspreet lure secondary to valvular insufficiency, pulmonary insufficiency as well as right heart failure, feliciano vular insufficiency. RECOMMENDATION: Continue anticoagulation which was on hold for GI workup. Once the GI workup is don e, can be restarted. Continue verapamil. Continue atenolol. Will follow with you. Thank you, Dr. Xavier, for providing the opportunity in taking care of the patient. Amari Lan MD cc: [id number] TT: 08/16/2016 15:55:44 Confirmation # [id number] Dictation # [id number] mn
--- NOTE | 2016-08-16 19:29 | VASCULAR ---
PROCEDURE: Ultrasound and fluoroscopically placed left upper extremity PICC line. HISTORY: Sepsis. Limited IV access. Needs PICC line. PHYSICIAN(S): Leonel Trinh MD. TECHNIQUE: The relative risks and indications of the procedure were explained to the patient and consent obtained. The patient was placed supine on the arteriogram table and the left arm prepped and draped in the usual sterile fashion. A tourniquet was applied to the left axilla. 1% Xylocaine was used to anesthetize the skin and soft tissues at the puncture site above the elbow. The basilic vein was punctured under direct ultrasound guidance with a micropuncture set. A 0.018 guidewire was advanced centrally and used to measure the length to the SVC/RA junction. A 5 Swedish single-lumen PICC line 43 cm long was advanced to the SVC/RA junction. The catheter was flushed and secured. The patient tolerated the procedure well. IMPRESSION: 1. Ultrasound and fluoroscopically placed left upper extremity PICC line. A 5 Swedish single-lumen PICC line 43 cm long was advanced to the SVC/RA junction.
--- NOTE | 2016-08-22 08:53 | PQF RESP ---
08/22/16 Dr. Xavier, Acute respiratory failure is documented by ID customer support consultant on progress note of . Was acute respiratory failure ruled in, ruled out, other, undetermined? If this was ruled in, was acute respiratory failure present on admission? Thank you. no acute respiratory failure Clarification of your documentation is requested to better reflect the severity of illness and intensity of treatment of your patient. Indicators present [] Use of Home Oxygen [] Respiratory rate > 28 or <8/min (Labored respirations) [] PCO2 > 50 mm Hg or (Hypercapnia) (somnolence) [] PaO2 < 60 mm Hg or Hypoxemia (confusion) [] ABG blood gas pH < 7.35 [] SpO2 < 90% sat on Room Air [] Cyanosis [] Unable to Speak in Full Sentences [] Use of Accessory Muscles / Tripoding [] Wheezing [] Other: [] Location in the medical record that reflects the above clinical findings: [] Treatment Provided: [] PHYSICIAN'S RESPONSE Based on your medical judgment of the clinical indicators outlined above, are you treating this patient for a known or suspected: [] Acute Respiratory Failure (hypoxia or hypercapnia) [] Chronic Respiratory Failure (hypoxia or hypercapnia) [] Acute on Chronic Respiratory Failure (hypoxia or hypercapnia) [] Hypoxemia please specify ACUTE, CHRONIC or ACUTE on CHRONIC [] Other []_ [] If unable to determine, please check the box, sign and date. Present On Admission (POA) Indicator: [] Present at the time of admission [] Not present at the time of admission [] Clinically Undetermined In responding to this query, please exercise your independent professional judgment. The fact that a question is asked does not imply that any particular answer is desired or expected. Thank you for your clarification on this documentation. 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 In theory, respiratory failure is defined as a Pa02 value of <60 mm/Hg or a PaC02 of >50 mm/Hg. However, these values may be affected by renal compensation. Respiratory failure may be acute or chronic. While acute respiratory failure is characterized by life-threatening derangement in arterial blood gases and acid-base balance, the manifestations of chronic respiratory failure are less dramatic and may not be as readily apparent. Classifications: Respiratory failure may be classified as hypoxemic (usually characterized by Pa02 of <60 mm/Hg) or hypercapnic (usually characterized by PaC02 >50 mm/Hg) and either may be acute or chronic. Chronic hypercapnic respiratory failure develops over time and allows for renal compensation and an increase in bicarbonate concentration; therefore the pH is usually only slightly decreased. The distinction between acute and chronic hypoxemic respiratory failure cannot readily be made on the basis of ABGs; the clinical markers of chronic hypoxemia, such as polythycemia or cor pulmonale suggest a long standing disorder (chronic hypoxemic respiratory failure). Clinical Indicators: dyspnea at rest or "chronic" dyspnea, concomitant conditions such as polycythemia or cor pulmonale, requirement for continuous oxygen support, forced expiratory volume in one second (FEV1) of 49 or less, pursed lip breathing, "barrel" chest, hyperinflation by CXR, muscle wasting, malnutrition/obesity, poor exercise capacity, peripheral edema, description as a "blue bloater" (usually associated with chronic, obstructive bronchitis) or "pink puffer" (usually associated with emphysema) Risks: Chronic Hypoxemic Respiratory Failure - COPD, pulmonary fibrosis, asthma , pulmonary arterial hypertension, granulomatous lung diseases, congenital heart disease, bronchiectasis, kyphoscoliosis, obesity; Chronic Hypercapnic Respiratory Failure - COPD, severe asthma, myasthenia gravis, polyneuropathy, polio, head and cervical spine injuries, obesity hypoventilation syndrome. Treatment: supplemental oxygen, bronchodilators, corticosteroids, adequate nutrition, lung transplant References: Am. J. Respir. Crit. Care Med. "Global Strategy for the Diagnosis, Management and Prevention of COPD: GOLD Exectuive Summary," Kareen Michelle Anzueto - 2007; Proceedings of the [place] [employer] "Mechanisms and Measurements of Dyspnea in COPD," Mckenna - 2006; WebMD; Respiratory Failure, Yang Beltran MD - 10/2005; [employer]'s Principles of Internal Medicine, 17th edition. Acute Respiratory Failure Acute Respiratory Failure indicators include: ~Respirations >28 ~Air hunger ~Use of accessory muscles of respiration ~Inability to speak in full sentences Cyanosis ~Pulse ox <90% RA or <95% on O2 pH <7.35 or >7.45 ~pO2 < 60 mm Hg (or 10mm below COPD patient's baseline) ~pCO2 >50mm Hg (or 10mm above COPD patient's baseline) "Respiratory failure may be assigned as a principal diagnosis when it is the condition established after study to be chiefly responsible for occasioning admission to the hospital. The fact that the respiratory failure was managed without intubation and mechanical ventilation does not preclude its use." [facility], 3rd Qtr., 1988, p. 7 MTDD
== END 2016-08-16 18:08 | DRG 871 ==
LOC: ED 15:15 → ERH 17:10 → CCU 19:11 → 5RSO 08-09 21:15 → 2RNO 08-13 23:30
PROVIDERS: ADMIT Internal Medicine Nephrology; ATTEND Internal Medicine Nephrology
PROC: 02HV33Z Insertion of Infusion Device into Superior Vena Cava, Percutaneous Approach (ICD-10-PCS; principal; 2016-08-16)
PROC: B548ZZA Ultrasonography of Superior Vena Cava, Guidance (ICD-10-PCS; 2016-08-16)
DX: A41.81 Sepsis due to Enterococcus (principal); I50.43 Acute on chronic combined systolic (congestive) and diastolic (congestive) heart failure; N17.9 Acute kidney failure, unspecified; K55.9 Vascular disorder of intestine, unspecified; E87.3 Alkalosis; A04.7 Enterocolitis due to Clostridium difficile; F03.90 Unspecified dementia, unspecified severity, without behavioral disturbance, psychotic disturbance, mood disturbance, and anxiety; I48.2 Chronic atrial fibrillation; E46 Unspecified protein-calorie malnutrition; J44.1 Chronic obstructive pulmonary disease with (acute) exacerbation; E11.9 Type 2 diabetes mellitus without complications; D64.9 Anemia, unspecified; I11.0 Hypertensive heart disease with heart failure; E78.5 Hyperlipidemia, unspecified; E87.6 Hypokalemia; R65.20 Severe sepsis without septic shock; K59.00 Constipation, unspecified; R32 Unspecified urinary incontinence; I27.2 Other secondary pulmonary hypertension; R33.9 Retention of urine, unspecified; Z86.73 Personal history of transient ischemic attack (TIA), and cerebral infarction without residual deficits; Z87.440 Personal history of urinary (tract) infections; Z87.891 Personal history of nicotine dependence; Z96.641 Presence of right artificial hip joint; R40.2412 Glasgow coma scale score 13-15, at arrival to emergency department; R10.9 Unspecified abdominal pain; K57.30 Diverticulosis of large intestine without perforation or abscess without bleeding; I08.3 Combined rheumatic disorders of mitral, aortic and tricuspid valves

== ENCOUNTER 2016-10-09 11:08 | Inpatient (IN) | payer MEDICARE, OTHER ==
--- NOTE | 2016-10-09 11:18 | ED PDOC ---
Arrival/HPI - General Time Seen by Provider: 10/09/16 11:11 Historian: Patient, EMS - History of Present Illness Narrative History of Present Illness (Text): 10/09/16 11:12 A 85 year old female, whose past medical history includes chronic atrial fibrillation on Eliquis, hypertension, mild dementia, hyperlipidemia, CVA (no subjective focal residual weakness), COPD, and CHF, is brought into the emergency department via EMS for evaluation of worsening shortness of breath for the past 2 days. EMS placed patient on Bi-Pap and gave Duoneb treatment with 20mg Lasix. According to EMS the patient appears more tachypneic despite medications. Patient states she still does not feel better after the medication. She denies any chest pain, fever, chills, or any other complaints at this time. PMD: Dr. Xavier GI: Dr. Cavazos Time/Duration: Other (2 days) Symptom Onset: Gradual Symptom Course: Worsening Quality: Other Activities at Onset: Rest Context: Home Past Medical History - Provider Review Nursing Documentation Reviewed: Yes - Infectious Disease Hx of Infectious Diseases: None - Tetanus Immunization Tetanus Immunization: Unknown - Cardiac Hx Atrial Fibrillation: Yes (Chronic) Hx Congestive Heart Failure: Yes Hx Hypertension: Yes - Pulmonary Hx Chronic Obstructive Pulmonary Disease (COPD): Yes - Neurological HX Cerebrovascular Accident: Yes - HEENT Hx HEENT Disorder: No - Renal Hx Renal Disorder: No - Endocrine/Metabolic Hx Diabetes Mellitus Type 2: Yes - Hematological/Oncological Hx Blood Disorders: Yes Hx AIDS: No Hx Anemia: Yes - Integumentary Hx Dermatological Disorder: No - Musculoskeletal/Rheumatological Hx Falls: Yes - Gastrointestinal Hx Gastrointestinal Disorders: No - Genitourinary/Gynecological Hx Genitourinary Disorders: Yes (UTI) Hx Reproductive Disorders: No - Psychiatric Hx Psychophysiologic Disorder: Yes Hx Anxiety: Yes Hx Substance Use: No - Past Surgical History Past Surgical History: Non-Contributing - Surgical History Hx Joint Replacement: Yes (right hip) - Anesthesia Hx Anesthesia: Yes Hx Anesthesia Reactions: No Hx Malignant Hyperthermia: No - Suicidal Assessment Feels Threatened In Home Enviroment: No Family/Social History - Physician Review Nursing Documentation Reviewed: Yes Family/Social History: Unknown Family HX Smoking Status: Former Smoker Hx Alcohol Use: No Hx Substance Use: No Hx Substance Use Treatment: No Allergies/Home Meds Allergies/Adverse Reactions: Allergies No Known Allergies Allergy (Verified 10/09/16 11:15) Home Medications: Home Meds Medication Instructions Recorded Confirmed Furosemide [Lasix] 40 mg PO DAILY 08/07/16 10/09/16 Potassium Chloride [K-Dur 20] 20 meq PO DAILY 08/07/16 10/09/16 Budesonide [Pulmicort] 1 inh INH BID 10/09/16 10/09/16 Omeprazole [Omeprazole] 20 mg PO DAILY 10/09/16 10/09/16 Verapamil [Calan Tab] 40 mg PO BID 10/09/16 10/09/16 Review of Systems - Physician Review All systems were reviewed & negative as marked: Yes - Review of Systems Constitutional: absent: Fevers Respiratory: SOB. absent: Cough Cardiovascular: absent: Chest Pain Gastrointestinal: absent: Abdominal Pain Skin: absent: Rash Neurological: absent: Headache, Dizziness, Focal Weakness Physical Exam Vital Signs Reviewed: Yes Vital Signs Temp Pulse Resp BP Pulse Ox 10/09/16 14:05 112 H 18 123/70 96 10/09/16 14:04 112 H 123/70 10/09/16 13:19 127 H 18 144/74 10/09/16 11:50 134/78 10/09/16 11:30 30 H 98 10/09/16 11:15 98.5 F 135 H 22 134/78 97 Temperature: Afebrile Blood Pressure: Normal Pulse: Tachycardic Respiratory Rate: Tachypneic Appearance: Positive for: Ill-Appearing, Uncomfortable Pain Distress: None Mental Status: Positive for: Alert and Oriented X 3 - Systems Exam Head: Present: Atraumatic, Normocephalic Pupils: Present: PERRL Conjunctiva: Present: Normal Mouth: Present: Dry Pharnyx: Present: Normal. No: ERYTHEMA, EXUDATE Neck: Present: Normal Range of Motion, JVD Respiratory/Chest: Present: Respiratory Distress, Decreased Breath Sounds ( right base), Tachypneic, Other (able to speak complete but small sentences). No : Accessory Muscle Use, Wheezes Cardiovascular: Present: Normal S1, S2, Irregular Rhythm, Tachycardic. No: Murmurs Abdomen: Present: Normal Bowel Sounds. No: Tenderness, Distention, Peritoneal Signs Back: Present: Normal Inspection Upper Extremity: Present: Normal Inspection. No: Cyanosis, Edema Lower Extremity: Present: Edema (2+ edema bilaterally) Neurological: Present: GCS=15, CN II-XII Intact, Speech Normal Skin: Present: Warm, Dry, Normal Color. No: Rashes Psychiatric: Present: Alert, Oriented x 3, Anxious Medical Decision Making ED Course and Treatment: 10/09/16 11:12 Impression: A 85 year old female with shortness of breath. On physical examination the patient has decreased breath sounds at the right base, 2+ edema to the bilateral lower extremities and her heart is tachycardia and irregular. Differential Diagnosis included but are not limited to: CHF exacerbation vs. COPD exacerbation vs Pneumonia Plan: -- EKG -- Chest X-ray -- Labs -- Urinalysis -- Reassess and disposition Prior Visits: Notes and results from previous visits were reviewed. The patient last presented to the emergency department on 08/07/16 for evaluation of abdominal pain and elevated an white blood cell count. Progress Notes: 10/09/16 11:43 Code sepsis called. Will hold on IV fluids protocol due to significant vascular congestion, tachypnea and active CHF. 10/09/16 12:00 Chest X-ray: Dictator : Sharonda Harrison MD COMPARISON: 08/13/2016 FINDINGS: LUNGS: There is interval improved aeration in both lungs. There is no focal consolidation. There is right basilar atelectasis/ scarring. PLEURA: No significant pleural effusion identified, no pneumothorax apparent. CARDIOVASCULAR: The heart is normal in size. Atherosclerotic aortic arch calcifications are present. . OSSEOUS STRUCTURES: No significant abnormalities. VISUALIZED UPPER ABDOMEN: Normal. OTHER FINDINGS: There is chronic elevation of the right hemidiaphragm. IMPRESSION: No acute findings. 10/09/16 12:09 Patient presented to the emergency department as noted. She initially appeared to be doing worse with Bipap on EMS. Discussed intubation with patient, who did confirm she is Full Code, but understandably (and was able to speak full sentences), wanted to wait. Patient continued on the Bipap in the emergency departm ABG done showed respiratory alkalosis; after continuing Bipap in the emergency department, she improved markedly with significant lessening of her tachypnea. Given presentation, case discussed with Dr. Bronson for ICU evaluation. 10/09/16 14:28 Patient was seen by Dr. Bronson earlier, who said she may be admitted to tele. Patient has been switched to nasal canula and appears comfortable. She was given a dose of cardizem for her rapid afib. Also of note, a code sepsis was called given her SIRS criteria and elevated lactic acid. IVF held due to active CHF. Started on abx though. Patient to be admitted to Dr. Xavier's service, as discused with him. 10/09/16 14:34 Though patient does appear better at this time, she has not yet urinated, despite 60 mg of lasix total. 10/09/16 14:34 Also of note, her Bili was elevated but no abd pain and benign abdominal exam, abdominal sono ordered. - Critical Care Critical Care Minutes: 30 minutes - Lab Interpretations Lab Results: 10/09/16 11:20 10/09/16 11:20 Lab Results 10/09/16 11:33: pCO2 23 L, pO2 220.0 H, HCO3 17.5 L, ABG pH 7.49 H, ABG Total CO2 18.2 L, ABG O2 Saturation 99.7 H, ABG Base Excess -4.7 L, ABG Potassium 3.9 , Glucose 114 H, Lactate 3.4 H, FiO2 100.0, Sodium 137.0, Chloride 106.0, Arterial Blood Potassium 3.9 10/09/16 11:30: Direct Bilirubin 0.9 H 10/09/16 11:20: Sodium 136, Potassium 4.2, Chloride 102, Carbon Dioxide 21, Anion Gap 17, BUN 25 H, Creatinine 1.1, Est GFR ( Amer) 57, Est GFR (Non- Af Amer) 47, Random Glucose 107, Calcium 8.9, Magnesium 1.7, Total Bilirubin 3.4 H, AST 45 H, ALT 59 H, Alkaline Phosphatase 232 H, Lactate Dehydrogenase 871 H, Total Creatine Kinase 64, Troponin I 0.01 D, NT-Pro-B Natriuret Pep 5260 H, Total Protein 7.4, Albumin 3.6, Globulin 3.8, Albumin/Globulin Ratio 0.9 L, Lipase 82 10/09/16 11:20: PT 14.7 H, INR 1.36 H, APTT 24.7 10/09/16 11:20: WBC 14.4 H, RBC 3.49 L, Hgb 9.2 L, Hct 29.8 L, MCV 85.4, MCH 26.4, MCHC 30.9 L, RDW 20.5 H, Plt Count 311, MPV 10.8, Gran % 78.7 H, Lymph % ( Auto) 12.0 L, [place] % (Auto) 8.8 H, Eos % (Auto) 0.1 L, Baso % (Auto) 0.4, Gran # 11.30 H, Lymph # 1.7, [place] # 1.3 H, Eos # 0.0, Baso # 0.06 I have reviewed the lab results: Yes - RAD Interpretation Radiology Orders: 10/09/16 11:21 CHEST PORTABLE [RAD] Stat - Medication Orders Current Medication Orders: Discontinued Medications Diltiazem HCl (Cardizem) 10 mg IVP STAT STA Stop: 10/09/16 13:53 Last Admin: 10/09/16 14:04 Dose: 10 mg Furosemide (Lasix) 40 mg IVP STAT STA Stop: 10/09/16 11:26 Last Admin: 10/09/16 11:50 Dose: 40 mg Levofloxacin/Dextrose (Levaquin 750mg) 750 mg in 150 mls @ 100 mls/hr IVPB STAT STA Stop: 10/09/16 13:14 Last Admin: 10/09/16 12:00 Dose: 100 mls/hr Ipratropium [place] (Atrovent) 0.5 mg IH STAT STA Stop: 10/09/16 11:27 Last Admin: 10/09/16 11:51 Dose: 0.5 mg Levalbuterol HCl (Xopenex) 1.25 mg IH STAT STA Stop: 10/09/16 11:27 Last Admin: 10/09/16 12:28 Dose: 1.25 mg Methylprednisolone (Solu-Medrol) 125 mg IVP STAT STA Stop: 10/09/16 11:26 Last Admin: 10/09/16 11:50 Dose: 125 mg - Scribe Statement The provider has reviewed the documentation as recorded by the Alexey Lopez Provider Scribe Attestation: All medical record entries made by the Scribe were at my direction and personally dictated by me. I have reviewed the chart and agree that the record accurately reflects my personal performance of the history, physical exam, medical decision making, and the department course for this patient. I have also personally directed, reviewed, and agree with the discharge instructions and disposition. Disposition/Present on Arrival - Present on Arrival Any Indicators Present on Arrival: No History of DVT/PE: No History of Uncontrolled Diabetes: No Urinary Catheter: Yes History Surgical Site Infection Following: None - Disposition Have Diagnosis and Disposition been Completed?: Yes Diagnosis: Rapid atrial fibrillation, Congestive heart failure Disposition: HOSPITALIZED Disposition Time: 13:15 Patient Plan: Admission, Telemetry Condition: FAIR
[2016-10-09] MEDS ORDERED: Ipratropium 0.02% Inhal Soln (0.5 mg/2.5 ml) UD IH STA (11:26)
[2016-10-09] MEDS ORDERED: Levalbuterol 1.25 MG/3 ML Inhal Soln UD IH STA (11:26)
[2016-10-09 11:35] LABS: ARTERIAL BLOOD GAS HCO3 17.5 mmol/L (21-28); ARTERIAL BLOOD GAS O2 SAT 99.7 % (95-98); ARTERIAL BLOOD GAS PCO2 23 mm/Hg (35-45); ARTERIAL BLOOD GAS PH 7.49 (7.35-7.45); ARTERIAL BLOOD GAS TCO2 18.2 mmol.L (22-28)
[2016-10-09] MEDS ORDERED: levoFLOXacin 750 mg in D5W 750 MG/150 ML BAG IVPB STA (11:45)
[2016-10-09 11:59] LABS: BASO # 0.06 K/mm3 (0.0-2.0); BASO % 0.4 % (0.0-3.0); EOS % 0.1 % (1.5-5.0); GRAN % 78.7 % (50.0-68.0); HEMOGLOBIN 9.2 gm/dL (12.0-16.0); LYMPH # 1.7 (1.2-3.4); MEAN CELL VOLUME 85.4 fL (80.0-105.0); MEAN CORPUSCULAR HEMOGLOBIN 26.4 pg (25.0-35.0); MEAN CORPUSCULAR HGB CONC 30.9 g/dl (31.0-37.0); MEAN PLATELET VOLUME 10.8 fl (7.0-11.0); MONO # 1.3 (0.1-0.6); MONO % 8.8 % (1.0-6.0); PLATELET COUNT 311 10^3/uL (120.0-450.0); RBC 3.49 10^6/uL (3.5-6.1); RED CELL DISTRIBUTION WIDTH 20.5 % (11.5-14.5); WHITE BLOOD COUNT 14.4 10^3/ul (4.5-11.0)
--- NOTE | 2016-10-09 12:01 | RAD ---
HISTORY: Shortness of breath COMPARISON: 08/13/2016 FINDINGS: LUNGS: There is interval improved aeration in both lungs. There is no focal consolidation. There is right basilar atelectasis/ scarring. PLEURA: No significant pleural effusion identified, no pneumothorax apparent. CARDIOVASCULAR: The heart is normal in size. Atherosclerotic aortic arch calcifications are present. . OSSEOUS STRUCTURES: No significant abnormalities. VISUALIZED UPPER ABDOMEN: Normal. OTHER FINDINGS: There is chronic elevation of the right hemidiaphragm. IMPRESSION: No acute findings.
[2016-10-09 12:11] LABS: INR 1.36 (0.93-1.08); PARTIAL THROMBOPLASTIN TIME 24.7 Seconds (23.7-30.8); PROTHROMBIN TIME 14.7 Seconds (9.9-11.8)
[2016-10-09 12:12] LABS: ALB/GLOB RATIO 0.9 (1.1-1.8); ALBUMIN 3.6 g/dL (3.0-4.8); CALCIUM 8.9 mg/dL (8.4-10.5); MAGNESIUM 1.7 mg/dL (1.7-2.2)
[2016-10-09 12:37] LABS: TROPONIN I 0.01 ng/mL
--- NOTE | 2016-10-09 12:44 | CP.PCM.CON ---
<Felicia Lovett - Last Filed: 10/09/16 13:59> History of Present Illness - History of Present Illness History of Present Illness: ICU Consult This is an 85Y F with PMH chronic a.fib on Eliquis, CHF, CVA x 2, COPD, HTN, HLD , c. diff who came to the ED for SOB x 2 days. She reports that she was feeling more SOB overtime. The patient also noticed more swelling and pain in her legs. She denies fever, chills, CP, sick contacts or cough. She does have diarrhea x 3 days. In the ED, patient was placed on Bipap and given Atrovent, Solumedrol and lasix. Upon examination she was on the Bipap and reports her breathing has improved. She complains of at the time is that she feels very thirsty and both her legs hurt. PMH: chronic a.fib on Eliquis, CHF, CVA x 2, COPD, HTN, HLD PSH: Tonsillectomy Home meds: Please see MAR All: NKDA SH: Denies EtOH, or drug use. Former smoker- quit many yrs ago. Uses walker. Can take care of herself. Lives with family FH: Non- Contributory Review of Systems - Constitutional Constitutional: absent: Chills, Fever - EENT Eyes: absent: Change in Vision Nose/Mouth/Throat: Dry Mouth. absent: Sore Throat, Throat Swelling - Cardiovascular Cardiovascular: Leg Edema. absent: Chest Pain - Respiratory Respiratory: absent: Cough, Dyspnea, Wheezing, Stridor, Change in Mucous Color - Gastrointestinal Gastrointestinal: absent: Abdominal Pain, Bloating, Diarrhea, Dyspepsia, Nausea , Vomiting - Genitourinary Genitourinary: absent: Dysuria, Hematuria, Pyuria - Musculoskeletal Musculoskeletal: absent: Numbness, Tingling - Neurological Neurological: absent: Dizziness, Numbness, Tingling, Tremor, Vertigo - Psychiatric Psychiatric: absent: Anxiety, Depression Past Patient History - Infectious Disease Hx of Infectious Diseases: None - Tetanus Immunizations Tetanus Immunization: Unknown - Past Medical History & Family History Past Medical History?: Yes - Past Social History Smoking Status: Former Smoker Alcohol: None Drugs: Denies Home Situation {Lives}: With Family - CARDIAC Hx Atrial Fibrillation: Yes (Chronic) Hx Congestive Heart Failure: Yes Hx Hypertension: Yes - PULMONARY Hx Chronic Obstructive Pulmonary Disease (COPD): Yes - NEUROLOGICAL HX Cerebrovascular Accident: Yes - HEENT Hx HEENT Problems: No - RENAL Hx Chronic Kidney Disease: No - ENDOCRINE/METABOLIC Hx Diabetes Mellitus Type 2: Yes - HEMATOLOGICAL/ONCOLOGICAL Hx Blood Disorders: Yes Hx AIDS: No Hx Anemia: Yes - INTEGUMENTARY Hx Dermatological Problems: No - MUSCULOSKELETAL/RHEUMATOLOGICAL Hx Falls: Yes - GASTROINTESTINAL Hx Gastrointestinal Disorders: No - GENITOURINARY/GYNECOLOGICAL Hx Genitourinary Disorders: Yes (UTI) Hx Reproductive Disorders: No - PSYCHIATRIC Hx Psychophysiologic Disorder: Yes Hx Anxiety: Yes Hx Substance Use: No - SURGICAL HISTORY Hx Joint Replacement: Yes (right hip) - ANESTHESIA Hx Anesthesia: Yes Hx Anesthesia Reactions: No Hx Malignant Hyperthermia: No Meds Allergies/Adverse Reactions: Allergies Allergy/AdvReac Type Severity Reaction Status Date / Time No Known Allergies Allergy Verified 10/09/16 11:15 - Medications Medications: Current Medications Levofloxacin/Dextrose (Levaquin 750mg) 750 mg in 150 mls @ 100 mls/hr IVPB STAT STA Stop: 10/09/16 13:14 Last Admin: 10/09/16 12:00 Dose: 100 mls/hr Physical Exam - Constitutional Appears: No Acute Distress - Head Exam Head Exam: ATRAUMATIC, NORMAL INSPECTION, NORMOCEPHALIC - Eye Exam Eye Exam: Normal appearance, PERRL, Scleral icterus Pupil Exam: NORMAL ACCOMODATION, PERRL - ENT Exam ENT Exam: Mucous Membranes Moist - Neck Exam Neck exam: Positive for: Normal Inspection - Respiratory Exam Respiratory Exam: Clear to Auscultation Bilateral, NORMAL BREATHING PATTERN. absent: Rales, Rhonchi, Wheezes - Cardiovascular Exam Cardiovascular Exam: Tachycardia, Irregular Rhythm, +S1, +S2. absent: Gallop, Rubs, Systolic Murmur - GI/Abdominal Exam GI & Abdominal Exam: Normal Bowel Sounds, Soft. absent: Distended, Firm, Guarding, Mass, Rigid, Tenderness - Extremities Exam Extremities exam: Positive for: pedal edema. Negative for: calf tenderness Additional comments: Erythema bilaterally in LE. Peripheral pulses intact. - Neurological Exam Neurological exam: Alert, CN II-XII Intact, Oriented x3 - Psychiatric Exam Psychiatric exam: Normal Affect, Normal Mood - Skin Skin Exam: Dry, Intact, Normal Color, Warm Results - Vital Signs Recent Vital Signs: Last Vital Signs Temp 98.5 F 10/09/16 11:15 Pulse 135 H 10/09/16 11:15 Resp 22 10/09/16 11:15 BP 134/78 10/09/16 11:50 Pulse Ox 97 10/09/16 11:15 - Labs Result Diagrams: 10/09/16 11:20 10/09/16 11:20 Labs: Laboratory Results - last 24 hr 10/09/16 10/09/16 10/09/16 11:20 11:20 11:20 WBC 14.4 H RBC 3.49 L Hgb 9.2 L Hct 29.8 L MCV 85.4 MCH 26.4 MCHC 30.9 L RDW 20.5 H Plt Count 311 MPV 10.8 Gran % 78.7 H Lymph % (Auto) 12.0 L Kinney % (Auto) 8.8 H Eos % (Auto) 0.1 L Baso % (Auto) 0.4 Gran # 11.30 H Lymph # 1.7 Kinney # 1.3 H Eos # 0.0 Baso # 0.06 PT 14.7 H INR 1.36 H APTT 24.7 pCO2 pO2 HCO3 ABG pH ABG Total CO2 ABG O2 Saturation ABG Base Excess ABG Potassium Glucose Lactate FiO2 Sodium 136 Potassium 4.2 Chloride 102 Carbon Dioxide 21 Anion Gap 17 BUN 25 H Creatinine 1.1 Est GFR ( Amer) 57 Est GFR (Non-Af Amer) 47 Random Glucose 107 Calcium 8.9 Magnesium 1.7 Total Bilirubin 3.4 H AST 45 H ALT 59 H Alkaline Phosphatase 232 H Lactate Dehydrogenase 871 H Total Creatine Kinase 64 Total Protein 7.4 Albumin 3.6 Globulin 3.8 Albumin/Globulin Ratio 0.9 L Lipase 82 Arterial Blood Potassium 10/09/16 11:33 WBC RBC Hgb Hct MCV MCH MCHC RDW Plt Count MPV Gran % Lymph % (Auto) Kinney % (Auto) Eos % (Auto) Baso % (Auto) Gran # Lymph # Kinney # Eos # Baso # PT INR APTT pCO2 23 L pO2 220.0 H HCO3 17.5 L ABG pH 7.49 H ABG Total CO2 18.2 L ABG O2 Saturation 99.7 H ABG Base Excess -4.7 L ABG Potassium 3.9 Glucose 114 H Lactate 3.4 H FiO2 100.0 Sodium 137.0 Potassium Chloride 106.0 Carbon Dioxide Anion Gap BUN Creatinine Est GFR ( Amer) Est GFR (Non-Af Amer) Random Glucose Calcium Magnesium Total Bilirubin AST ALT Alkaline Phosphatase Lactate Dehydrogenase Total Creatine Kinase Total Protein Albumin Globulin Albumin/Globulin Ratio Lipase Arterial Blood Potassium 3.9 Assessment & Plan - Assessment and Plan (Free Text) Assessment: This is a 85Y F with PMH chronic a.fib on Eliquis, CHF, CVA x 2, COPD, HTN, HLD who came to ED for SOB x 2 days secondary to CHF exacerbation versus anxiety. Patient also noted to have leukocytosis, bilateral LE erythema and edema and hyperbilirubinemia. Plan: Neuro: A&O x 3 No neuro deficits noted Maintain normothermia CV: In a.fib at this time. Troponin 0.01 Pt on Eliquis and Cardizem at home EF on 07/2016 was 55% and noted to have moderate TR and MR Aidee given in ED Resp: Pt on Bipap Protective lung strategy (HOB elevated, aspiration precaution) CXR showed vascular congestion Maintain spO2>90% GI: Hyperbilirubinemia with mild transaminitis Obtain direct bilirubin Pt asymptomatic Abdominal U/S pending Nephro: Continue to monitor electrolytes Strict I&O Heme: Hgb stable- no overt signs of bleeding ID: Lactate elevated on ABG Afebrile, mild leukocytosis- can be secondary to cellulitis Given Levaquin in ED Endo: Maintain euvolemia, euglycemia Continue GI ppx and DVT ppx Dispo: Patient is stable and may be transferred to telemetry. Case seen, discussed and reviewed with attending. Alex Lovett PGY1 - Date & Time Date: 10/09/16 Time: 12:56 <Aiyana COOPER,Ranjeet H - Last Filed: 10/09/16 16:00> Results - Vital Signs Recent Vital Signs: Last Vital Signs Temp 98.5 F 10/09/16 11:15 Pulse 105 H 10/09/16 15:49 Resp 18 10/09/16 15:49 BP 130/69 10/09/16 15:49 Pulse Ox 96 10/09/16 15:49 - Labs Result Diagrams: 10/09/16 11:20 10/09/16 11:20 Labs: Laboratory Results - last 24 hr 10/09/16 15:24 pO2 39 VBG pH 7.34 VBG pCO2 37.0 L VBG HCO3 20.0 L VBG Total CO2 21.1 L VBG O2 Sat (Calc) 70.0 H VBG Base Excess -5.2 L VBG Potassium 4.4 Sodium 136.0 Chloride 100.0 Glucose 122 H Lactate 5.6 H* FiO2 21.0 Venous Blood Potassium 4.4 Attending/Attestation - Attestation I have personally seen and examined this patient.: Yes I have fully participated in the care of the patient.: Yes I have reviewed all pertinent clinical information: Yes Notes (Text): 10/09/16 15:57 85 y/o F w/ multiple admissions to the ICU in the past Presented to the ER SOB Unclear the cause of her SOB, CXR shows mild PVC no infiltrates Mild WBC elevation in the setting of elevated T.Bili and ALK p, no abd signs of Acute Choly but would need urgent ABD US and GI consult Empiric abx given and would continue and await blood and urine cx. A FIB rate 100-120's, does respond to Cardizem in the past. Cardiology , pulm consults placed If clinical worsening, please call back the ICU . If US shows any pending surgica/ septic abdomen please call back. DVT lower ext us awaiting. case d/w er attending, PCP notified. cc time 55 min
[2016-10-09 15:48] LABS: VENOUS BLOOD GAS BASE EXCESS -5.2 mmol/L (0.0-2.0); VENOUS BLOOD GAS PO2 39 mm/Hg (30-55); VENOUS BLOOD PH 7.34 (7.32-7.43)
[2016-10-09] MEDS ORDERED: Vancomycin 1gm in NS 250ml 1 GM/250 ML BAG IVPB STA (16:01)
[2016-10-09] MEDS ORDERED: Piperacillin/Tazobact 3.375 gm 100 ML IVPB STA (16:01)
[2016-10-09 16:32] LABS: URINE APPEARANCE CLEAR (CLEAR); URINE BILIRUBIN NEGATIVE (NEGATIVE); URINE BLOOD SMALL (NEGATIVE); URINE COLOR YELLOW (YELLOW); URINE GLUCOSE (UA) NEGATIVE (NEGATIVE); URINE LEUKOCYTE ESTERASE MODERATE Leu/uL (NEGATIVE); URINE NITRATE NEGATIVE (NEGATIVE); URINE PROTEIN NEGATIVE mg/dL (<30 mg/dL); URINE UROBILINOGEN 0.2 E.U./dL (<1 E.U./dL)
[2016-10-09 16:37] LABS: URINE WBC 15 - 20 /hpf (0-6)
[2016-10-09 16:38] LABS: URINE AMORPHOUS SEDIMENT FEW; URINE BACTERIA MANY (NEG); URINE FINE GRANULAR CAST 0 - 2 /hpf (0-2); URINE HYALINE CAST 0 - 2 /hpf
[2016-10-09] MEDS ORDERED: Cefepime 1gm in NS 100ml 1 GM/100 ML BAG IVPB ONE (16:44)
[2016-10-09 16:47] VITALS: BMI 31.0
[2016-10-09] MEDS ORDERED: Pneumococcal 23-Valent Vaccine IM ONE (16:47)
[2016-10-09] MEDS ORDERED: Sodium Chloride 0.9% 1,000 ML IV STA (16:50)
--- NOTE | 2016-10-09 17:04 | US ---
HISTORY: elevated bili, lactic acidosis COMPARISON: None available TECHNIQUE: Sonographic evaluation of the abdomen. FINDINGS: Examination limited due to patient difficulty with breath hold. LIVER: Measures 14.4 cm in sagittal dimension. Echogenic liver may be seen in setting of hepatic parenchymal disease or fatty infiltration. No focal hepatic mass identified. The main portal vein appears patent with normal directional flow. No intrahepatic bile duct dilatation. GALLBLADDER: No gallstones. Gallbladder wall thickening/edema measuring approximately 5 mm. Negative sonographic Villarreal's sign as assessed by the paint spray inspector. COMMON BILE DUCT: Measures approximately 3 mm. PANCREAS: Not well visualized. RIGHT KIDNEY: Measures 9.6 x 4.1 x 4.0 cm. No obstructing calculus or hydronephrosis identified. LEFT KIDNEY: Measures 9.8 x 4.2 x 4.6 cm. No obstructing calculus or hydronephrosis identified. SPLEEN: Measures approximately 10.2 cm. AORTA: Limited views appear unremarkable. IVC: Limited views appear unremarkable. OTHER FINDINGS: None. IMPRESSION: Limited study. Gallbladder wall thickening/edema. No evidence of gallstones. Negative sonographic Villarreal's sign as assessed by the paint spray inspector. Correlate clinically. Echogenic liver may be seen in setting of hepatic parenchymal disease or fatty infiltration.
--- NOTE | 2016-10-09 18:01 | CT ---
PROCEDURE: CT Abdomen and Pelvis without Oral or IV contrast. HISTORY: lactic acidosis, high LFTs, bili COMPARISON: Abdominal ultrasound performed 10/09/16, CT chest, abdomen, and pelvis without contrast performed 08/07/16 TECHNIQUE: Contiguous axial images of the abdomen and pelvis. No oral or IV contrast administered. Coronal and Sagittal reformats generated and reviewed. Radiation dose: Total exam DLP = 683.77 mGy-cm. This CT exam was performed using one or more of the following dose reduction techniques: Automated exposure control, adjustment of the mA and/or kV according to patient size, and/or use of iterative reconstruction technique. FINDINGS: There is limited evaluation of the solid organs without the administration of IV contrast. LOWER THORAX: Bibasilar infiltrates or atelectasis. Small right pleural effusion. No visible pneumothorax. Partially imaged cardiomegaly. Dense coronary artery and valvular calcifications. LIVER: Unremarkable unenhanced appearance. GALLBLADDER AND BILE DUCTS: Decompressed state of gallbladder precludes adequate evaluation. PANCREAS: Atrophic. SPLEEN: Unremarkable unenhanced appearance. ADRENALS: Bilateral adrenal gland hypertrophy. KIDNEYS AND URETERS: Atrophic bilateral kidneys. No hydronephrosis or obstructing renal calculus. BLADDER: The urinary bladder appears unremarkable. REPRODUCTIVE: Uterus is present. APPENDIX: The appendix appears within normal limits of caliber. No secondary signs of acute appendicitis. BOWEL: The stomach is nondistended. Lack of oral contrast limits evaluation for bowel pathology. The bowel loops appear within normal limits of caliber without evidence of intestinal obstruction. Wall thickening and associated inflammatory changes involving the sigmoid colon in region of diverticulosis consistent with acute diverticulitis. PERITONEUM: Small perihepatic and perisplenic ascites. Small fluid in the right bilateral pericolic gutters. No definite free air. LYMPH NODES: No bulky lymphadenopathy identified. VASCULATURE: Dense atherosclerotic calcifications of the aorta and branches. No aortic aneurysm. BONES: Right hip arthroplasty with resultant streak artifact which limits evaluation of the pelvis. OTHER FINDINGS: None. IMPRESSION: Wall thickening and associated inflammatory changes involving the sigmoid colon in region of diverticulosis consistent with acute diverticulitis. Correlate clinically. Small perihepatic and perisplenic ascites. Small fluid in the bilateral pericolic gutters. Additional findings as above.
--- NOTE | 2016-10-09 22:12 | CARD ---
APPROVED REPORT EKG Measurement Heart [id number] <Conclusion> Atrial fibrillation with rapid ventricular response with premature ventricular or aberrantly conducted complexes Nonspecific ST and T wave abnormality, probably digitalis effect Abnormal ECG
[2016-10-09] MEDS ORDERED: diltiaZEM IVPB 100mg in NS 100 ML IV PRN (22:13)
[2016-10-09] MEDS ORDERED: Oxycodone/Acetaminophen 10/325 mg Tab PO STA (22:15)
--- NOTE | 2016-10-10 02:13 | CP.PCM.PN ---
Subjective - Date & Time of Evaluation Date of Evaluation: 10/09/16 Time of Evaluation: 23:00 - Subjective Subjective: Patient was seen earlier. As per nurse, her heart rate had been in the 140's . When I checked her , she complained of severe pain in both feet more in left foot than right one. Did not have chest pain, sob, nausea, sweating , palpitation. This 85 year old woman was admitted with swollen legs, sob, diarrhoea. Has PMH of CHF ,a.fib, HLD ,copd, HTN, CVA. Objective - Vital Signs/Intake and Output Vital Signs (last 24 hours): Temp Pulse Resp BP Pulse Ox 98.7 F 140 H 20 110/47 L 97 10/09/16 18:00 10/09/16 22:27 10/09/16 18:00 10/09/16 22:27 10/09/16 18:00 - Medications Medications: Current Medications Sodium Chloride (Sodium Chloride 0.9%) 1,000 mls @ 50 mls/hr IV .Q20H STA Stop: 10/10/16 12:49 Last Admin: 10/09/16 18:21 Dose: 50 mls/hr diltiaZEM IVPB 100mg in NS (Cardizem 100mg In Ns) 100 mls @ 5 mls/hr IV .Q20H PRN; Protocol; 5 MG/HR PRN Reason: TITRATE PER MD ORDER Last Admin: 10/09/16 22:27 Dose: 5 mg/hr, 5 mls/hr - Labs Labs: PT 14.7 Seconds (9.9-11.8) H 10/09/16 11:20 INR 1.36 (0.93-1.08) H 10/09/16 11:20 APTT 24.7 Seconds (23.7-30.8) 10/09/16 11:20 - Head Exam Head Exam: ATRAUMATIC, NORMAL INSPECTION, NORMOCEPHALIC - Eye Exam Eye Exam: Normal appearance - ENT Exam ENT Exam: TM's Normal Bilaterally - Neck Exam Neck Exam: Normal Inspection - Cardiovascular Exam Cardiovascular Exam: Tachycardia, Irregular Rhythm - GI/Abdominal Exam GI & Abdominal Exam: absent: Distended - Rectal Exam Rectal Exam: Deferred - Exam Additional comments: Deferred. - Extremities Exam Additional comments: Left foot is erythematous. - Back Exam Back Exam: NORMAL INSPECTION - Neurological Exam Neurological Exam: Alert, Awake - Psychiatric Exam Psychiatric exam: Normal Affect, Normal Mood - Skin Additional comments: As else where. Assessment and Plan - Assessment and Plan (Free Text) Assessment: Dyspnea. Left foot pain. CHF. A.Fib. HLD. HTN. Plan: Percocet 5/325 I po now. Xopenex nebulizer treatment.
[2016-10-10 08:51] LABS: HEMOGLOBIN 8.9 gm/dL (12.0-16.0); MEAN CELL VOLUME 84.5 fL (80.0-105.0); MEAN CORPUSCULAR HEMOGLOBIN 26.1 pg (25.0-35.0); MEAN CORPUSCULAR HGB CONC 30.9 g/dl (31.0-37.0); MEAN PLATELET VOLUME 11.1 fl (7.0-11.0); RBC 3.41 10^6/uL (3.5-6.1); RED CELL DISTRIBUTION WIDTH 20.6 % (11.5-14.5); WHITE BLOOD COUNT 9.2 10^3/ul (4.5-11.0)
[2016-10-10 09:02] LABS: ALB/GLOB RATIO 0.9 (1.1-1.8); ALBUMIN 3.1 g/dL (3.0-4.8); CALCIUM 8.4 mg/dL (8.4-10.5)
[2016-10-10] MEDS: Albuterol-Ipratrop 3 mg / 0.5 (3 ml) UD IH SCH ×3 (11:20→20:08)
--- NOTE | 2016-10-10 12:54 | CP.PCM.CON ---
History of Present Illness - History of Present Illness History of Present Illness: S&E earlier this am, chart reviewed. Request for consult is forElevated LFT/Lactic Acid HPI: This is a 85 y.o female w/ PMH of Atrial Fibrillation on Eliquis, CVA, CHF , COPD Cdiff who came to the ER with complaints with SOB for 2 days and leg swelling and pain. Patient ahd elevated WBC and elevated Lactic ACid, Code Spesis called in the ER. Also having diarrhea for 3 days, no reports of bleeding. She denies CP, N/N or abdominal pain. No fever or chills. On admission she had multiple radiographic studies, reports were reviewed. Ct scan A&P report acute diverticulitis, abdominal US report no GB stones, echogenic liver, fatty liver VS parenchymal disease, and EXT doppler, that was negative. Patient reported to have no episode of diarrhea or bleeding. No acute overnight events reported. PMH: Chronic Atrial Fibrillation on Eliquis, HTN, HLD, COPD,CVA, CHF, Cdiff PSH: Tonsillectomy, right hip surgery Family HX: noncontributory at th is time Social HX: former smoker, no HX: ETOH, Drugs MEDS: on Eliquis, also MAR reviewed. ROS: systems reviewed with positive findings, see HPI. Past Patient History - Infectious Disease Hx of Infectious Diseases: None - Tetanus Immunizations Tetanus Immunization: Unknown - Past Medical History & Family History Past Medical History?: Yes - Past Social History Smoking Status: Former Smoker - CARDIAC Hx Cardia Arrhythmia: Yes (a fib) Hx Congestive Heart Failure: Yes Hx Hypercholesterolemia: Yes Hx Hypertension: Yes Hx Peripheral Edema: Yes (redness swelling +1 pitting ble) Other/Comment: variscosities both feet - PULMONARY Hx Chronic Obstructive Pulmonary Disease (COPD): Yes Hx Emphysema: Yes Hx Pneumonia: Yes - NEUROLOGICAL HX Cerebrovascular Accident: Yes Hx Dementia: Yes Hx Transient Ischemic Attacks (TIA): Yes - HEENT Hx HEENT Problems: Yes Hx Cataracts: Yes - RENAL Hx Chronic Kidney Disease: No - ENDOCRINE/METABOLIC Hx Diabetes Mellitus Type 2: Yes - HEMATOLOGICAL/ONCOLOGICAL Hx Blood Disorders: Yes Hx AIDS: No Hx Anemia: Yes - INTEGUMENTARY Hx Dermatological Problems: Yes Other/Comment: bright red buttocks/sacrum, ble redness swelling, thick hard toenails both feet , variscosities both feet - MUSCULOSKELETAL/RHEUMATOLOGICAL Hx Arthritis: Yes Hx Degenerative Joint Disease: Yes Hx Falls: Yes (past) Hx Osteoarthritis: Yes Hx Unsteady Gait: Yes (cane/walker) - GASTROINTESTINAL Hx Gastrointestinal Disorders: No - GENITOURINARY/GYNECOLOGICAL Hx Genitourinary Disorders: Yes Hx Urinary Tract Infection: Yes - PSYCHIATRIC Hx Psychophysiologic Disorder: Yes Hx Anxiety: Yes Hx Substance Use: No - SURGICAL HISTORY Hx Joint Replacement: Yes (right hip) - ANESTHESIA Hx Anesthesia: Yes Hx Anesthesia Reactions: No Hx Malignant Hyperthermia: No Meds Allergies/Adverse Reactions: Allergies Allergy/AdvReac Type Severity Reaction Status Date / Time No Known Allergies Allergy Verified 10/09/16 11:15 - Medications Medications: Current Medications Albuterol/Ipratropium (Duoneb 3 Mg/0.5 Mg (3 Ml) Ud) 3 ml IH TIDRESP [facility] Last Admin: 10/10/16 11:20 Dose: 3 ml Apixaban (Eliquis) 2.5 mg PO BID [facility] PRN Reason: Protocol Last Admin: 10/10/16 10:36 Dose: 2.5 mg Arformoterol Tartrate (Brovana) 15 mcg IH [id number] TARSHA Budesonide (Pulmicort Respules) 0.5 mg IH [id number] [facility] Furosemide (Lasix) 40 mg PO DAILY [facility] Last Admin: 10/10/16 10:35 Dose: 40 mg Sodium Chloride (Sodium Chloride 0.9%) 1,000 mls @ 50 mls/hr IV .Q20H STA Stop: 10/10/16 12:49 Last Admin: 10/09/16 18:21 Dose: 50 mls/hr Levalbuterol HCl (Xopenex) 0.63 mg IH [id number] PRN PRN Reason: Shortness of Breath Verapamil HCl (Calan Tab) 40 mg PO TID [facility] Last Admin: 10/10/16 10:35 Dose: 40 mg Physical Exam - Constitutional Appears: No Acute Distress - Head Exam Head Exam: NORMAL INSPECTION - Eye Exam Eye Exam: Normal appearance. absent: Scleral icterus - ENT Exam ENT Exam: Mucous Membranes Moist - Neck Exam Neck exam: Positive for: Normal Inspection - Respiratory Exam Respiratory Exam: Decreased Breath Sounds, Rales, NORMAL BREATHING PATTERN. absent: Wheezes, Respiratory Distress - Cardiovascular Exam Cardiovascular Exam: +S1, +S2 - GI/Abdominal Exam GI & Abdominal Exam: Normal Bowel Sounds, Soft. absent: Distended, Guarding, Rebound, Tenderness - Extremities Exam Extremities exam: Positive for: pedal edema, pedal pulses present (bliateral feet erythema). Negative for: calf tenderness - Neurological Exam Neurological exam: Alert, Oriented x3 - Skin Skin Exam: Dry, Warm Results - Vital Signs Recent Vital Signs: Last Vital Signs Temp 98.7 F 10/10/16 11:54 Pulse 48 L 10/10/16 11:54 Resp 19 10/10/16 11:54 BP 129/87 10/10/16 11:54 Pulse Ox 98 10/10/16 06:00 - Labs Result Diagrams: 10/10/16 08:40 10/10/16 08:40 Labs: Laboratory Results - last 24 hr 10/09/16 10/09/16 10/10/16 15:24 16:15 08:40 WBC 9.2 D RBC 3.41 L Hgb 8.9 L Hct 28.8 L MCV 84.5 MCH 26.1 MCHC 30.9 L RDW 20.6 H Plt Count 205 MPV 11.1 H pO2 39 VBG pH 7.34 VBG pCO2 37.0 L VBG HCO3 20.0 L VBG Total CO2 21.1 L VBG O2 Sat (Calc) 70.0 H VBG Base Excess -5.2 L VBG Potassium 4.4 Sodium 136.0 Chloride 100.0 Glucose 122 H Lactate 5.6 H* FiO2 21.0 Potassium Carbon Dioxide Anion Gap BUN Creatinine Est GFR ( Amer) Est GFR (Non-Af Amer) Random Glucose Calcium Total Bilirubin AST ALT Alkaline Phosphatase Total Protein Albumin Globulin Albumin/Globulin Ratio Venous Blood Potassium 4.4 Urine Color Yellow Urine Appearance Clear Urine pH 6.0 Ur Specific [place] 1.020 Urine Protein Negative Urine Glucose (UA) Negative Urine Ketones Negative Urine Blood Small H Urine Nitrate Negative Urine Bilirubin Negative Urine Urobilinogen 0.2 Ur Leukocyte Esterase Moderate H Urine RBC 5 - 10 Urine WBC 15 - 20 Ur Epithelial Cells 6 - 8 Amorphous Sediment Few Urine Bacteria Many Hyaline Casts 0 - 2 Fine Granular Casts 0 - 2 Urine Other Uyeast 10/10/16 08:40 WBC RBC Hgb Hct MCV MCH MCHC RDW Plt Count MPV pO2 VBG pH VBG pCO2 VBG HCO3 VBG Total CO2 VBG O2 Sat (Calc) VBG Base Excess VBG Potassium Sodium 134 Chloride 101 Glucose Lactate FiO2 Potassium 4.4 Carbon Dioxide 20 L Anion Gap 17 BUN 33 H Creatinine 1.3 Est GFR ( Amer) 47 Est GFR (Non-Af Amer) 39 Random Glucose 114 H Calcium 8.4 Total Bilirubin 3.2 H AST 125 H ALT 131 H Alkaline Phosphatase 181 H Total Protein 6.5 Albumin 3.1 Globulin 3.4 Albumin/Globulin Ratio 0.9 L Venous Blood Potassium Urine Color Urine Appearance Urine pH Ur Specific [place] Urine Protein Urine Glucose (UA) Urine Ketones Urine Blood Urine Nitrate Urine Bilirubin Urine Urobilinogen Ur Leukocyte Esterase Urine RBC Urine WBC Ur Epithelial Cells Amorphous Sediment Urine Bacteria Hyaline Casts Fine Granular Casts Urine Other Assessment & Plan - Assessment and Plan (Free Text) Assessment: ASSESSMENT: Acute Diverticulitis, pt, no abdominal pain Leukocytosis CHF Elevated LFT/Hyperbilirubinemia, abdominal US no GB stone, CBD 3mm, maybe secondary to hepatic congestion Diarrhea, H/O CDiff Chronic Atrial FIbrillation CVA COPD PLAN: change diet to clear liquid start Protonix 40 IVP daily start flagyl/rocephin FU blood cultures and urine cultures on Eliquis on Lasix monitor electrolytes trend LFT ID eval Thank you for this consult and for allowing us to participate in your patient care, will make further recommendations based upon clinical course. Seen and discussed with Dr. Cavazos.
[2016-10-10] MEDS ORDERED: cefTRIAXone 1 gm 1 GM/100 ML BAG IVPB SCH (13:00)
[2016-10-10] MEDS ORDERED: metroNIDAZOLE IV 500 mg/100 ml 500 MG/100 ML BAG IVPB SCH (14:00)
--- NOTE | 2016-10-10 14:17 | CP.PCM.CON ---
History of Present Illness - History of Present Illness History of Present Illness: This is an 85Y F with PMH chronic a.fib on Eliquis, CHF, CVA x 2, COPD, HTN, HLD , c. diff who came to the ED for SOB x 2 days. She reports that she was feeling more SOB overtime. The patient also noticed more swelling and pain in her legs. She denies fever, chills, CP, sick contacts or cough. She does have diarrhea x 3 days. In the ED, patient was placed on Bipap and given Atrovent, Solumedrol and lasix. Upon examination she was on the Bipap and reports her breathing has improved. She complains of at the time is that she feels very thirsty and both her legs hurt feells better this AM, but stile SOB Review of Systems - Review of Systems Systems not reviewed;Unavailable: Respiratory Distress Review of Systems: feels better - Constitutional Constitutional: Fatigue, Weakness - EENT Eyes: absent: As Per HPI, Blind Spots, Blurred Vision, Change in Vision, Decreased Night Vision, Diplopia, Discharge, Dry Eye, Exophthalmos, Floaters, Irritation, Itchy Eyes, Loss of Peripheral Vision, Pain, Photophobia, Requires Corrective Lenses, Sees Flashes, Spots in Vision, Tunnel Vision, Other Visual Disturbances, Loss of Vision, Other Ears: absent: As Per HPI, Decreased Hearing, Ear Discharge, Ear Pain, Tinnitus, Abnormal Hearing, Disequilibrium, Dizziness, Other Nose/Mouth/Throat: absent: As Per HPI, Epistaxis, Nasal Congestion, Nasal Discharge, Nasal Obstruction, Nasal Trauma, Nose Pain, Post Nasal Drip, Sinus Pain, Sinus Pressure, Bleeding Gums, Change in Voice, Dental Pain, Dry Mouth, Dysphagia, Halitosis, Hoarsness, Lip Swelling, Mouth Lesions, Mouth Pain, Odynophagia, Sore Throat, Throat Swelling, Tongue Swelling, Facial Pain, Neck Pain, Neck Mass, Other - Cardiovascular Cardiovascular: Dyspnea, Edema, Orthopnea, Paroxysmal Nocturnal Dyspnea - Respiratory Respiratory: Dyspnea, Wheezing, Snoring - Gastrointestinal Gastrointestinal: absent: As Per HPI, Abdominal Pain, Belching, Bloating, Change in Bowel Habits, Change in Stool Character, Coffee Ground Emesis, Constipation, Cramping, Diarrhea, Dyspepsia, Dysphagia, Early Satiety, Excessive Flatus, Fecal Incontinence, Heartburn, Hematemesis, Hematochezia, Loose Stools, Melena, Nausea, Odynophagia, Temesmus, Vomiting, Other - Musculoskeletal Musculoskeletal: Joint Swelling Additional comments: decrease leg swelling Past Patient History - Infectious Disease Hx of Infectious Diseases: None - Tetanus Immunizations Tetanus Immunization: Unknown - Past Medical History & Family History Past Medical History?: Yes - Past Social History Smoking Status: Former Smoker - CARDIAC Hx Cardia Arrhythmia: Yes (a fib) Hx Congestive Heart Failure: Yes Hx Hypercholesterolemia: Yes Hx Hypertension: Yes Hx Peripheral Edema: Yes (redness swelling +1 pitting ble) Other/Comment: variscosities both feet - PULMONARY Hx Chronic Obstructive Pulmonary Disease (COPD): Yes Hx Emphysema: Yes Hx Pneumonia: Yes - NEUROLOGICAL HX Cerebrovascular Accident: Yes Hx Dementia: Yes Hx Transient Ischemic Attacks (TIA): Yes - HEENT Hx HEENT Problems: Yes Hx Cataracts: Yes - RENAL Hx Chronic Kidney Disease: No - ENDOCRINE/METABOLIC Hx Diabetes Mellitus Type 2: Yes - HEMATOLOGICAL/ONCOLOGICAL Hx Blood Disorders: Yes Hx AIDS: No Hx Anemia: Yes - INTEGUMENTARY Hx Dermatological Problems: Yes Other/Comment: bright red buttocks/sacrum, ble redness swelling, thick hard toenails both feet , variscosities both feet - MUSCULOSKELETAL/RHEUMATOLOGICAL Hx Arthritis: Yes Hx Degenerative Joint Disease: Yes Hx Falls: Yes (past) Hx Osteoarthritis: Yes Hx Unsteady Gait: Yes (cane/walker) - GASTROINTESTINAL Hx Gastrointestinal Disorders: No - GENITOURINARY/GYNECOLOGICAL Hx Genitourinary Disorders: Yes Hx Urinary Tract Infection: Yes - PSYCHIATRIC Hx Psychophysiologic Disorder: Yes Hx Anxiety: Yes Hx Substance Use: No - SURGICAL HISTORY Hx Joint Replacement: Yes (right hip) - ANESTHESIA Hx Anesthesia: Yes Hx Anesthesia Reactions: No Hx Malignant Hyperthermia: No Meds Allergies/Adverse Reactions: Allergies Allergy/AdvReac Type Severity Reaction Status Date / Time No Known Allergies Allergy Verified 10/09/16 11:15 - Medications Medications: Current Medications Albuterol/Ipratropium (Duoneb 3 Mg/0.5 Mg (3 Ml) Ud) 3 ml IH TIDRESP [facility] Last Admin: 10/10/16 13:46 Dose: 3 ml Apixaban (Eliquis) 2.5 mg PO BID [facility] PRN Reason: Protocol Last Admin: 10/10/16 10:36 Dose: 2.5 mg Arformoterol Tartrate (Brovana) 15 mcg IH [id number] [facility] Budesonide (Pulmicort Respules) 0.5 mg IH [id number] [facility] Furosemide (Lasix) 40 mg PO DAILY [facility] Last Admin: 10/10/16 10:35 Dose: 40 mg Metronidazole (Flagyl) 500 mg in 100 mls @ 100 mls/hr IVPB Q8 [facility] PRN Reason: Protocol Last Admin: 10/10/16 13:53 Dose: 100 mls/hr Ceftriaxone Sodium (Rocephin 1 Gram Ivpb) 1 gm in 100 mls @ 100 mls/hr IVPB DAILY [facility] PRN Reason: Protocol Last Admin: 10/10/16 13:49 Dose: 100 mls/hr Levalbuterol HCl (Xopenex) 0.63 mg IH [id number] PRN PRN Reason: Shortness of Breath Pantoprazole Sodium (Protonix Inj) 40 mg IVP DAILY [facility] Verapamil HCl (Calan Tab) 40 mg PO TID [facility] Last Admin: 10/10/16 13:55 Dose: 40 mg Physical Exam - Constitutional Appears: In Acute Distress - Head Exam Head Exam: ATRAUMATIC, NORMAL INSPECTION, NORMOCEPHALIC - Eye Exam Eye Exam: EOMI, Normal appearance - ENT Exam ENT Exam: Mucous Membranes Moist, Normal Exam - Neck Exam Neck exam: Positive for: Normal Inspection - Respiratory Exam Respiratory Exam: Rales, Wheezes - Cardiovascular Exam Cardiovascular Exam: Irregular Rhythm - GI/Abdominal Exam GI & Abdominal Exam: Normal Bowel Sounds, Soft. absent: Tenderness - Extremities Exam Extremities exam: Positive for: calf tenderness, pedal edema - Neurological Exam Neurological exam: Alert, CN II-XII Intact - Psychiatric Exam Psychiatric exam: Normal Affect, Normal Mood - Skin Skin Exam: Erythema Additional comments: lower ext. Results - Vital Signs Recent Vital Signs: Last Vital Signs Temp 98.7 F 10/10/16 11:54 Pulse 48 L 10/10/16 11:54 Resp 19 10/10/16 11:54 BP 129/81 10/10/16 13:55 Pulse Ox 98 10/10/16 06:00 - Labs Result Diagrams: 10/10/16 08:40 10/10/16 08:40 Labs: Laboratory Results - last 24 hr 10/09/16 10/09/16 10/10/16 15:24 16:15 08:40 WBC 9.2 D RBC 3.41 L Hgb 8.9 L Hct 28.8 L MCV 84.5 MCH 26.1 MCHC 30.9 L RDW 20.6 H Plt Count 205 MPV 11.1 H pO2 39 VBG pH 7.34 VBG pCO2 37.0 L VBG HCO3 20.0 L VBG Total CO2 21.1 L VBG O2 Sat (Calc) 70.0 H VBG Base Excess -5.2 L VBG Potassium 4.4 Sodium 136.0 Chloride 100.0 Glucose 122 H Lactate 5.6 H* FiO2 21.0 Potassium Carbon Dioxide Anion Gap BUN Creatinine Est GFR ( Amer) Est GFR (Non-Af Amer) Random Glucose Calcium Total Bilirubin AST ALT Alkaline Phosphatase Total Protein Albumin Globulin Albumin/Globulin Ratio Venous Blood Potassium 4.4 Urine Color Yellow Urine Appearance Clear Urine pH 6.0 Ur Specific [place] 1.020 Urine Protein Negative Urine Glucose (UA) Negative Urine Ketones Negative Urine Blood Small H Urine Nitrate Negative Urine Bilirubin Negative Urine Urobilinogen 0.2 Ur Leukocyte Esterase Moderate H Urine RBC 5 - 10 Urine WBC 15 - 20 Ur Epithelial Cells 6 - 8 Amorphous Sediment Few Urine Bacteria Many Hyaline Casts 0 - 2 Fine Granular Casts 0 - 2 Urine Other [place] 10/10/16 08:40 WBC RBC Hgb Hct MCV MCH MCHC RDW Plt Count MPV pO2 VBG pH VBG pCO2 VBG HCO3 VBG Total CO2 VBG O2 Sat (Calc) VBG Base Excess VBG Potassium Sodium 134 Chloride 101 Glucose Lactate FiO2 Potassium 4.4 Carbon Dioxide 20 L Anion Gap 17 BUN 33 H Creatinine 1.3 Est GFR ( Amer) 47 Est GFR (Non-Af Amer) 39 Random Glucose 114 H Calcium 8.4 Total Bilirubin 3.2 H AST 125 H ALT 131 H Alkaline Phosphatase 181 H Total Protein 6.5 Albumin 3.1 Globulin 3.4 Albumin/Globulin Ratio 0.9 L Venous Blood Potassium Urine Color Urine Appearance Urine pH Ur Specific [place] Urine Protein Urine Glucose (UA) Urine Ketones Urine Blood Urine Nitrate Urine Bilirubin Urine Urobilinogen Ur Leukocyte Esterase Urine RBC Urine WBC Ur Epithelial Cells Amorphous Sediment Urine Bacteria Hyaline Casts Fine Granular Casts Urine Other - Imaging and Cardiology CT scan - abdomen Status: Report reviewed by me Additional comment: acute diverticulitis Assessment & Plan (1) Diverticulitis large intestine Status: Acute Comment: continue anti biotics (2) Congestive heart failure Status: Acute Comment: nila (3) Rapid atrial fibrillation Assessment and Plan: ashley Status: Acute (4) Anemia Status: Acute Comment: follow up h and h (5) Bilateral lower leg cellulitis Status: Acute Comment: on anti biotics (6) Sleep apnea in adult Status: Acute Comment: B PAP while sleeping , out pt. sleep study
[2016-10-10] MEDS: Arformoterol 15 mcg/2 ml Inh Sol IH SCH (20:08)
[2016-10-10] MEDS: Budesonide 0.5 mg/2 ml Inhal Susp UD IH SCH (20:08)
[2016-10-10] MEDS ORDERED: Oxycodone/Acetaminophen 5/325 mg Tab PO STA (20:56)
[2016-10-10] MEDS: Meropenem 1g/NS 100mL IVPB 1 GM/100 ML PIGGYBACK IVPB SCH (21:02)
--- NOTE | 2016-10-11 06:58 | CP.PCM.PN ---
Subjective - Date & Time of Evaluation Date of Evaluation: 10/11/16 Time of Evaluation: 06:54 (Earlier) - Subjective Subjective: Patient complained foot pain. Seen at bed side. Has no other complaints. Pain is more in left foot than in right foot. Medical record was reviewed. 85 year old woman was admitted with swollen legs, sob, diarrhoea. Has PMH of COPD,CHF ,Atrial Fibrillation , HLD , HTN, CVA. Objective - Vital Signs/Intake and Output Vital Signs (last 24 hours): Temp Pulse Resp BP Pulse Ox 97.7 F 109 H 19 131/70 98 10/11/16 06:00 10/11/16 06:00 10/11/16 06:00 10/11/16 06:00 10/11/16 06:00 Intake and Output: 10/10/16 10/11/16 18:59 06:59 Intake Total 340 Balance 340 - Medications Medications: Current Medications Albuterol/Ipratropium (Duoneb 3 Mg/0.5 Mg (3 Ml) Ud) 3 ml IH TIDRESP [facility] Last Admin: 10/10/16 20:08 Dose: 3 ml Apixaban (Eliquis) 2.5 mg PO BID [facility] PRN Reason: Protocol Last Admin: 10/10/16 18:13 Dose: 2.5 mg Arformoterol Tartrate (Brovana) 15 mcg IH [id number] [facility] Last Admin: 10/10/16 20:08 Dose: 15 mcg Budesonide (Pulmicort Respules) 0.5 mg IH [id number] [facility] Last Admin: 10/10/16 20:08 Dose: 0.5 mg Furosemide (Lasix) 40 mg PO DAILY [facility] Last Admin: 10/10/16 10:35 Dose: 40 mg Meropenem 1g/NS 100mL IVPB (Meropenem 1g/Ns 100ml Ivpb) 1 gm in 100 mls @ 100 mls/hr IVPB Q12 [facility] PRN Reason: Protocol Stop: 10/19/16 22:01 Last Admin: 10/10/16 21:02 Dose: 100 mls/hr Levalbuterol HCl (Xopenex) 0.63 mg IH [id number] PRN PRN Reason: Shortness of Breath Pantoprazole Sodium (Protonix Inj) 40 mg IVP DAILY [facility] Last Admin: 10/10/16 14:01 Dose: 40 mg Verapamil HCl (Calan Tab) 40 mg PO TID [facility] Last Admin: 10/10/16 18:13 Dose: 40 mg - Labs Labs: 10/10/16 08:40 10/10/16 08:40 PT 14.7 Seconds (9.9-11.8) H 10/09/16 11:20 INR 1.36 (0.93-1.08) H 10/09/16 11:20 APTT 24.7 Seconds (23.7-30.8) 10/09/16 11:20 - Constitutional Appears: Well, No Acute Distress - Head Exam Head Exam: ATRAUMATIC, NORMAL INSPECTION, NORMOCEPHALIC - Eye Exam Eye Exam: Normal appearance - ENT Exam ENT Exam: TM's Normal Bilaterally - Neck Exam Neck Exam: Normal Inspection - Respiratory Exam Respiratory Exam: NORMAL BREATHING PATTERN - Cardiovascular Exam Cardiovascular Exam: absent: JVD - GI/Abdominal Exam GI & Abdominal Exam: Distended - Rectal Exam Rectal Exam: Deferred - Exam Additional comments: Above deferred. - Extremities Exam Additional comments: Left foot erythema present. DP is diminished but felt by doppler as per nurse. - Back Exam Back Exam: NORMAL INSPECTION - Neurological Exam Neurological Exam: Alert, Awake, Oriented x3 - Psychiatric Exam Psychiatric exam: Normal Affect, Normal Mood - Skin Additional comments: See else where. Assessment and Plan - Assessment and Plan (Free Text) Assessment: Percocet I po x 1. Continue present management.
[2016-10-11 07:00] LABS: ALB/GLOB RATIO 0.9 (1.1-1.8); CALCIUM 7.9 mg/dL (8.4-10.5)
[2016-10-11 07:12] LABS: HEMOGLOBIN 8.3 gm/dL (12.0-16.0); MEAN CELL VOLUME 83.6 fL (80.0-105.0); MEAN CORPUSCULAR HEMOGLOBIN 25.6 pg (25.0-35.0); MEAN CORPUSCULAR HGB CONC 30.6 g/dl (31.0-37.0); MEAN PLATELET VOLUME 11.5 fl (7.0-11.0); RBC 3.24 10^6/uL (3.5-6.1); WHITE BLOOD COUNT 13.6 10^3/ul (4.5-11.0)
[2016-10-11] MEDS: Albuterol-Ipratrop 3 mg / 0.5 (3 ml) UD IH SCH ×3 (07:44→19:17)
[2016-10-11] MEDS: Budesonide 0.5 mg/2 ml Inhal Susp UD IH SCH ×2 (07:44→19:18)
[2016-10-11] MEDS: Arformoterol 15 mcg/2 ml Inh Sol IH SCH ×2 (07:44→19:18)
[2016-10-11] MEDS: Potassium Chloride 20 mEq ER Tab PO SCH (08:17)
--- NOTE | 2016-10-11 08:57 | PQF CHF ---
This form is a permanent part of the medical record Dr. Xavier, Just a reminder to specify type and severity of CHF present in this patient. Clarification of your documentation is requested to better reflect the severity of illness and intensity of treatment of your patient. CHF secondary to systolic dysfunction Indicators present [] Diagnosis of CHF and/or history of CHF [] BNP > 200 [] Imaging Finding of Pulmonary Edema /Pleural Effusions [] Fluid/Volume Overload [] Pitting edema [] Ejection Fraction < 40% (Indicative of Systolic Heart Failure) [] Ejection Fraction > 40% (Indicative of Diastolic Heart Failure) [] Dyspnea / Orthopenea / Paroxysmal Nocturnal Dyspnea [] Other: Location in the medical record that reflects the above clinical findings: [] Treatment Provided: [] PHYSICIAN'S RESPONSE Based on your medical judgment of the clinical indicators outlined above, are you treating this patient for a known or suspected: [] Acute CHF [] Systolic [] Diastolic [] Combined [] Chronic CHF [] Systolic [] Diastolic [] Combined [] Acute on Chronic CHF []Systolic [] Diastolic [] Combined [] CHF due hypertension [] Acute systolic []Chronic systolic [] Acute/ chronic systolic [] Other, please indicate: [] [] If Unable to Determine, please check the box, sign and date. Present On Admission (POA) Indicator: [] Present at the time of admission [] Not present at the time of admission [] Clinically Undetermined In responding to this query, please exercise your independent professional judgment. The fact that a question is asked does not imply that any particular answer is desired or expected. Thank you for your clarification on this documentation. If you have any questions please call:[ ] * Thank you, [ ]Jacob Harp [facility] #[id number] research physician NAIN
--- NOTE | 2016-10-11 10:38 | CP.PCM.PN ---
Subjective - Date & Time of Evaluation Date of Evaluation: 10/11/16 Time of Evaluation: 07:00 - Subjective Subjective: no chest pain, lying flat, no SOB, palpitation. Objective - Vital Signs/Intake and Output Vital Signs (last 24 hours): Temp Pulse Resp BP Pulse Ox 97.7 F 109 H 19 131/70 98 10/11/16 06:00 10/11/16 06:00 10/11/16 06:00 10/11/16 06:00 10/11/16 06:00 Intake and Output: 10/11/16 10/11/16 06:59 18:59 Intake Total 340 Balance 340 - Medications Medications: Current Medications Albuterol/Ipratropium (Duoneb 3 Mg/0.5 Mg (3 Ml) Ud) 3 ml IH TIDRESP [facility] Last Admin: 10/11/16 07:44 Dose: 3 ml Alprazolam (Xanax) 0.25 mg PO DAILY PRN PRN Reason: Anxiety Stop: 10/18/16 10:01 Apixaban (Eliquis) 2.5 mg PO BID [facility] PRN Reason: Protocol Last Admin: 10/10/16 18:13 Dose: 2.5 mg Arformoterol Tartrate (Brovana) 15 mcg IH [id number] [facility] Last Admin: 10/11/16 07:44 Dose: 15 mcg Budesonide (Pulmicort Respules) 0.5 mg IH [id number] [facility] Last Admin: 10/11/16 07:44 Dose: 0.5 mg Furosemide (Lasix) 40 mg PO DAILY [facility] Last Admin: 10/10/16 10:35 Dose: 40 mg Meropenem 1g/NS 100mL IVPB (Meropenem 1g/Ns 100ml Ivpb) 1 gm in 100 mls @ 100 mls/hr IVPB Q12 [facility] PRN Reason: Protocol Stop: 10/19/16 22:01 Last Admin: 10/10/16 21:02 Dose: 100 mls/hr Levalbuterol HCl (Xopenex) 0.63 mg IH [id number] PRN PRN Reason: Shortness of Breath Pantoprazole Sodium (Protonix Inj) 40 mg IVP DAILY [facility] Last Admin: 10/10/16 14:01 Dose: 40 mg Potassium Chloride (K-Dur 20 Meq Er Tab) 20 meq PO BRK [facility] Last Admin: 10/11/16 08:17 Dose: 20 meq Verapamil HCl (Calan Tab) 40 mg PO TID [facility] Last Admin: 10/10/16 18:13 Dose: 40 mg - Labs Labs: 10/11/16 05:50 10/11/16 05:50 PT 14.7 Seconds (9.9-11.8) H 10/09/16 11:20 INR 1.36 (0.93-1.08) H 10/09/16 11:20 APTT 24.7 Seconds (23.7-30.8) 10/09/16 11:20 Assessment and Plan - Assessment and Plan (Free Text) Assessment: 85 yr old female with Ch. afib, HTN, SevereMR/TR, preserved LV Fx. admittec with CHF secodary to A fib RVR and valvular heart diz anemia , hypokalemia Plan: diuretic, rate limitin calcium Channel serenity, monitor electrlolytes.
[2016-10-11] MEDS: Meropenem 1g/NS 100mL IVPB 1 GM/100 ML PIGGYBACK IVPB SCH ×2 (10:42→21:08)
[2016-10-11] MEDS: Levalbuterol 0.63 MG/3 ML Inhal Soln UD IH PRN ×2 (11:12→20:22)
--- NOTE | 2016-10-11 11:17 | CP.PCM.CON ---
History of Present Illness - History of Present Illness History of Present Illness: 85 YO,.. WITH SOB NO ABD PAIN Past Patient History - Infectious Disease Hx of Infectious Diseases: None - Tetanus Immunizations Tetanus Immunization: Unknown - Past Medical History & Family History Past Medical History?: Yes - Past Social History Smoking Status: Former Smoker - CARDIAC Hx Cardia Arrhythmia: Yes (a fib) Hx Congestive Heart Failure: Yes Hx Hypercholesterolemia: Yes Hx Hypertension: Yes Hx Peripheral Edema: Yes (redness swelling +1 pitting ble) Other/Comment: variscosities both feet - PULMONARY Hx Chronic Obstructive Pulmonary Disease (COPD): Yes Hx Emphysema: Yes Hx Pneumonia: Yes - NEUROLOGICAL HX Cerebrovascular Accident: Yes Hx Dementia: Yes Hx Transient Ischemic Attacks (TIA): Yes - HEENT Hx HEENT Problems: Yes Hx Cataracts: Yes - RENAL Hx Chronic Kidney Disease: No - ENDOCRINE/METABOLIC Hx Diabetes Mellitus Type 2: Yes - HEMATOLOGICAL/ONCOLOGICAL Hx Blood Disorders: Yes Hx AIDS: No Hx Anemia: Yes - INTEGUMENTARY Hx Dermatological Problems: Yes Other/Comment: bright red buttocks/sacrum, ble redness swelling, thick hard toenails both feet , variscosities both feet - MUSCULOSKELETAL/RHEUMATOLOGICAL Hx Arthritis: Yes Hx Degenerative Joint Disease: Yes Hx Falls: Yes (past) Hx Osteoarthritis: Yes Hx Unsteady Gait: Yes (cane/walker) - GASTROINTESTINAL Hx Gastrointestinal Disorders: No - GENITOURINARY/GYNECOLOGICAL Hx Genitourinary Disorders: Yes Hx Urinary Tract Infection: Yes - PSYCHIATRIC Hx Psychophysiologic Disorder: Yes Hx Anxiety: Yes Hx Substance Use: No - SURGICAL HISTORY Hx Joint Replacement: Yes (right hip) - ANESTHESIA Hx Anesthesia: Yes Hx Anesthesia Reactions: No Hx Malignant Hyperthermia: No Meds Allergies/Adverse Reactions: Allergies Allergy/AdvReac Type Severity Reaction Status Date / Time No Known Allergies Allergy Verified 10/09/16 11:15 - Medications Medications: Current Medications Albuterol/Ipratropium (Duoneb 3 Mg/0.5 Mg (3 Ml) Ud) 3 ml IH TIDRESP [facility] Last Admin: 10/11/16 07:44 Dose: 3 ml Alprazolam (Xanax) 0.25 mg PO DAILY PRN PRN Reason: Anxiety Stop: 10/18/16 10:01 Last Admin: 10/11/16 10:42 Dose: 0.25 mg Apixaban (Eliquis) 2.5 mg PO BID [facility] PRN Reason: Protocol Last Admin: 10/11/16 10:41 Dose: 2.5 mg Arformoterol Tartrate (Brovana) 15 mcg IH [id number] [facility] Last Admin: 10/11/16 07:44 Dose: 15 mcg Budesonide (Pulmicort Respules) 0.5 mg IH [id number] [facility] Last Admin: 10/11/16 07:44 Dose: 0.5 mg Furosemide (Lasix) 40 mg PO DAILY [facility] Last Admin: 10/11/16 10:41 Dose: 40 mg Meropenem 1g/NS 100mL IVPB (Meropenem 1g/Ns 100ml Ivpb) 1 gm in 100 mls @ 100 mls/hr IVPB Q12 [facility] PRN Reason: Protocol Stop: 10/19/16 22:01 Last Admin: 10/11/16 10:42 Dose: 100 mls/hr Levalbuterol HCl (Xopenex) 0.63 mg IH [id number] PRN PRN Reason: Shortness of Breath Pantoprazole Sodium (Protonix Inj) 40 mg IVP DAILY [facility] Last Admin: 10/11/16 10:42 Dose: 40 mg Potassium Chloride (K-Dur 20 Meq Er Tab) 20 meq PO BRK [facility] Last Admin: 10/11/16 08:17 Dose: 20 meq Verapamil HCl (Calan Tab) 40 mg PO TID [facility] Last Admin: 10/11/16 10:41 Dose: 40 mg Physical Exam - Constitutional Appears: Well - Head Exam Head Exam: ATRAUMATIC, NORMAL INSPECTION, NORMOCEPHALIC - Eye Exam Eye Exam: EOMI, Normal appearance, PERRL Pupil Exam: NORMAL ACCOMODATION, PERRL - ENT Exam ENT Exam: Mucous Membranes Moist, Normal Exam - Neck Exam Neck exam: Positive for: Normal Inspection - Respiratory Exam Respiratory Exam: Clear to Auscultation Bilateral, NORMAL BREATHING PATTERN - Cardiovascular Exam Cardiovascular Exam: REGULAR RHYTHM - GI/Abdominal Exam GI & Abdominal Exam: Normal Bowel Sounds, Soft. absent: Tenderness - Rectal Exam Rectal Exam: NORMAL INSPECTION - Exam Exam: Circumcision, NORMAL INSPECTION External exam: NORMAL EXTERNAL EXAM Speculum exam: NORMAL SPECULUM EXAM Bimanual exam: NORMAL BIMANUAL EXAM - Extremities Exam Extremities exam: Positive for: normal inspection - Back Exam Back exam: NORMAL INSPECTION - Neurological Exam Neurological exam: Alert, CN II-XII Intact, Normal Gait, Oriented x3, Reflexes Normal - Psychiatric Exam Psychiatric exam: Normal Affect, Normal Mood - Skin Skin Exam: Dry, Intact, Normal Color, Warm Results - Vital Signs Recent Vital Signs: Last Vital Signs Temp 97.7 F 10/11/16 06:00 Pulse 136 H 10/11/16 10:41 Resp 19 10/11/16 06:00 BP 111/76 10/11/16 10:41 Pulse Ox 98 10/11/16 06:00 - Labs Result Diagrams: 10/11/16 05:50 10/11/16 05:50 Labs: Laboratory Results - last 24 hr 10/11/16 10/11/16 05:50 05:50 WBC 13.6 H D RBC 3.24 L Hgb 8.3 L Hct 27.1 L MCV 83.6 MCH 25.6 MCHC 30.6 L RDW 21.0 H Plt Count 219 MPV 11.5 H Sodium 131 L Potassium 3.5 L Chloride 101 Carbon Dioxide 20 L Anion Gap 14 BUN 33 H Creatinine 1.2 Est GFR ( Amer) 51 Est GFR (Non-Af Amer) 42 Random Glucose 105 Calcium 7.9 L Total Bilirubin 1.3 AST 83 H ALT 136 H Alkaline Phosphatase 157 H Total Protein 6.2 Albumin 3.0 Globulin 3.2 Albumin/Globulin Ratio 0.9 L Assessment & Plan (1) Sepsis Status: Acute (2) Acute diverticulitis Status: Acute (3) Acute diastolic (congestive) heart failure Status: Acute - Assessment and Plan (Free Text) Plan: JOSE/ ROSALINDA JOHNSONU - Date & Time Date: 10/11/16 Time: 08:00
--- NOTE | 2016-10-11 19:36 | CP.PCM.PN ---
Subjective - Date & Time of Evaluation Date of Evaluation: 10/11/16 Time of Evaluation: 19:05 - Subjective Subjective: Pt with no complaints. No abd pain. Objective - Vital Signs/Intake and Output Vital Signs (last 24 hours): Temp Pulse Resp BP Pulse Ox 98 F 134 H 18 145/69 98 10/11/16 17:57 10/11/16 18:00 10/11/16 17:57 10/11/16 17:57 10/11/16 06:00 Intake and Output: 10/11/16 10/12/16 18:59 06:59 Intake Total 730 Output Total 300 Balance 430 - Medications Medications: Current Medications Albuterol/Ipratropium (Duoneb 3 Mg/0.5 Mg (3 Ml) Ud) 3 ml IH TIDRESP [facility] Last Admin: 10/11/16 13:15 Dose: 3 ml Alprazolam (Xanax) 0.25 mg PO DAILY PRN PRN Reason: Anxiety Stop: 10/18/16 10:01 Last Admin: 10/11/16 10:42 Dose: 0.25 mg Apixaban (Eliquis) 2.5 mg PO BID [facility] PRN Reason: Protocol Last Admin: 10/11/16 17:19 Dose: 2.5 mg Arformoterol Tartrate (Brovana) 15 mcg IH [id number] [facility] Last Admin: 10/11/16 07:44 Dose: 15 mcg Budesonide (Pulmicort Respules) 0.5 mg IH [id number] [facility] Last Admin: 10/11/16 07:44 Dose: 0.5 mg Furosemide (Lasix) 40 mg PO DAILY [facility] Last Admin: 10/11/16 10:41 Dose: 40 mg Meropenem 1g/NS 100mL IVPB (Meropenem 1g/Ns 100ml Ivpb) 1 gm in 100 mls @ 100 mls/hr IVPB Q12 [facility] PRN Reason: Protocol Stop: 10/19/16 22:01 Last Admin: 10/11/16 10:42 Dose: 100 mls/hr Levalbuterol HCl (Xopenex) 0.63 mg IH [id number] PRN PRN Reason: Shortness of Breath Last Admin: 10/11/16 11:12 Dose: 0.63 mg Pantoprazole Sodium (Protonix Inj) 40 mg IVP DAILY [facility] Last Admin: 10/11/16 10:42 Dose: 40 mg Potassium Chloride (K-Dur 20 Meq Er Tab) 20 meq PO BRK [facility] Last Admin: 10/11/16 08:17 Dose: 20 meq Verapamil HCl (Calan Tab) 40 mg PO TID [facility] Last Admin: 10/11/16 17:18 Dose: 40 mg - Labs Labs: 10/11/16 05:50 10/11/16 05:50 PT 14.7 Seconds (9.9-11.8) H 10/09/16 11:20 INR 1.36 (0.93-1.08) H 10/09/16 11:20 APTT 24.7 Seconds (23.7-30.8) 10/09/16 11:20 - Constitutional Appears: Well - Head Exam Head Exam: NORMAL INSPECTION - Eye Exam Eye Exam: EOMI, Normal appearance, PERRL - ENT Exam ENT Exam: Mucous Membranes Moist, Normal Exam - Neck Exam Neck Exam: Normal Inspection - Respiratory Exam Respiratory Exam: Clear to Ausculation Bilateral, NORMAL BREATHING PATTERN. absent: Rales, Rhonchi, Stridor - Cardiovascular Exam Cardiovascular Exam: REGULAR RHYTHM, +S1, +S2. absent: Tachycardia, Gallop, Murmur - GI/Abdominal Exam GI & Abdominal Exam: Soft, Normal Bowel Sounds. absent: Tenderness, Hyperactive Bowel Sounds, Mass, Organomegaly - Rectal Exam Rectal Exam: NORMAL INSPECTION - Neurological Exam Neurological Exam: Alert - Psychiatric Exam Psychiatric exam: Normal Affect, Normal Mood Assessment and Plan - Assessment and Plan (Free Text) Assessment: acute CHF- secondary to diastolic dysfunction Pulm HTN TR COPD A fib Dyslipidemia Dementia- [facility] Plan: Coninue with Eliquis for A fib anticoagulation. Consult notes reviewed. PT eval. Meds reviewed. Will need NEFTALY vs exterminator care. Labs reviewed. On Meropenum for Abx . Continue with Verapamil for A fib control.
--- NOTE | 2016-10-11 19:59 | CP.PCM.PN ---
Subjective - Date & Time of Evaluation Date of Evaluation: 10/11/16 Time of Evaluation: 19:57 - Subjective Subjective: Patient was seen at bedside. As per her nurse, she complains of sob. Has no chest pain, nausea, sweating , palpitations. States that she feels anxious. No other complaints. On BiPAP 01/18 30% pulse ox 94-96 % tachypnic 116/min 98.58F Medical recorde was reviewed. 85 year old woman was admitted with sob,swollen legs, diarrhoea. Has PMH of CHF ,a.fib,copd, HTN, HLD, CVA. Objective - Vital Signs/Intake and Output Vital Signs (last 24 hours): Temp Pulse Resp BP Pulse Ox 98 F 86 18 145/69 98 10/11/16 17:57 10/11/16 19:21 10/11/16 17:57 10/11/16 17:57 10/11/16 06:00 Intake and Output: 10/11/16 10/12/16 18:59 06:59 Intake Total 730 Output Total 300 Balance 430 - Medications Medications: Current Medications Albuterol/Ipratropium (Duoneb 3 Mg/0.5 Mg (3 Ml) Ud) 3 ml IH TIDRESP [facility] Last Admin: 10/11/16 19:17 Dose: 3 ml Alprazolam (Xanax) 0.25 mg PO DAILY PRN PRN Reason: Anxiety Stop: 10/18/16 10:01 Last Admin: 10/11/16 10:42 Dose: 0.25 mg Apixaban (Eliquis) 2.5 mg PO BID [facility] PRN Reason: Protocol Last Admin: 10/11/16 17:19 Dose: 2.5 mg Arformoterol Tartrate (Brovana) 15 mcg IH [id number] [facility] Last Admin: 10/11/16 19:18 Dose: 15 mcg Budesonide (Pulmicort Respules) 0.5 mg IH [id number] [facility] Last Admin: 10/11/16 19:18 Dose: 0.5 mg Furosemide (Lasix) 40 mg PO DAILY [facility] Last Admin: 10/11/16 10:41 Dose: 40 mg Meropenem 1g/NS 100mL IVPB (Meropenem 1g/Ns 100ml Ivpb) 1 gm in 100 mls @ 100 mls/hr IVPB Q12 [facility] PRN Reason: Protocol Stop: 10/19/16 22:01 Last Admin: 10/11/16 10:42 Dose: 100 mls/hr Levalbuterol HCl (Xopenex) 0.63 mg IH [id number] PRN PRN Reason: Shortness of Breath Last Admin: 10/11/16 11:12 Dose: 0.63 mg Pantoprazole Sodium (Protonix Inj) 40 mg IVP DAILY [facility] Last Admin: 10/11/16 10:42 Dose: 40 mg Potassium Chloride (K-Dur 20 Meq Er Tab) 20 meq PO BRK [facility] Last Admin: 10/11/16 08:17 Dose: 20 meq Verapamil HCl (Calan Tab) 40 mg PO TID [facility] Last Admin: 10/11/16 17:18 Dose: 40 mg - Labs Labs: 10/11/16 05:50 10/11/16 05:50 PT 14.7 Seconds (9.9-11.8) H 10/09/16 11:20 INR 1.36 (0.93-1.08) H 10/09/16 11:20 APTT 24.7 Seconds (23.7-30.8) 10/09/16 11:20 - Constitutional Appears: Well, No Acute Distress - Head Exam Head Exam: ATRAUMATIC, NORMAL INSPECTION, NORMOCEPHALIC - Eye Exam Eye Exam: Normal appearance - ENT Exam ENT Exam: Normal External Ear Exam - Neck Exam Neck Exam: Normal Inspection - Respiratory Exam Respiratory Exam: NORMAL BREATHING PATTERN - Cardiovascular Exam Cardiovascular Exam: absent: JVD - GI/Abdominal Exam GI & Abdominal Exam: absent: Distended - Rectal Exam Rectal Exam: Deferred - Exam Additional comments: Above deferred. - Extremities Exam Additional comments: Left foot redness + - Back Exam Back Exam: NORMAL INSPECTION - Neurological Exam Neurological Exam: Alert, Awake - Psychiatric Exam Psychiatric exam: Normal Affect, Normal Mood - Skin Additional comments: See else where. Assessment and Plan - Assessment and Plan (Free Text) Assessment: Anxiety. COPD. CHF. HTN. HLD. Diverticulitis. Plan: Xanax 0.25 mg po stat. Xopenex 0.25 mg PO stat. Continue present management.
[2016-10-11] MEDS ORDERED: Levalbuterol 0.63 MG/3 ML Inhal Soln UD IH STA (20:23)
--- NOTE | 2016-10-11 22:16 | CP.PCM.PN ---
Subjective - Date & Time of Evaluation Date of Evaluation: 10/11/16 Time of Evaluation: 16:00 - Subjective Subjective: This is an 85Y F with PMH chronic a.fib on Eliquis, CHF, CVA x 2, COPD, HTN, HLD , c. diff who came to the ED for SOB x 2 days. She reports that she was feeling more SOB overtime. The patient also noticed more swelling and pain in her legs. feels better today, decrease sob, no chest pain, no leg swelling Objective - Vital Signs/Intake and Output Vital Signs (last 24 hours): Temp Pulse Resp BP Pulse Ox 98.5 F 116 H 30 H 101/63 100 10/11/16 20:00 10/11/16 20:00 10/11/16 20:00 10/11/16 20:00 10/11/16 20:00 Intake and Output: 10/11/16 10/12/16 18:59 06:59 Intake Total 730 Output Total 300 Balance 430 - Medications Medications: Current Medications Albuterol/Ipratropium (Duoneb 3 Mg/0.5 Mg (3 Ml) Ud) 3 ml IH TIDRESP [facility] Last Admin: 10/11/16 19:17 Dose: 3 ml Alprazolam (Xanax) 0.25 mg PO DAILY PRN PRN Reason: Anxiety Stop: 10/18/16 10:01 Last Admin: 10/11/16 10:42 Dose: 0.25 mg Apixaban (Eliquis) 2.5 mg PO BID [facility] PRN Reason: Protocol Last Admin: 10/11/16 17:19 Dose: 2.5 mg Arformoterol Tartrate (Brovana) 15 mcg IH [id number] [facility] Last Admin: 10/11/16 19:18 Dose: 15 mcg Budesonide (Pulmicort Respules) 0.5 mg IH [id number] [facility] Last Admin: 10/11/16 19:18 Dose: 0.5 mg Furosemide (Lasix) 40 mg PO DAILY [facility] Last Admin: 10/11/16 10:41 Dose: 40 mg Meropenem 1g/NS 100mL IVPB (Meropenem 1g/Ns 100ml Ivpb) 1 gm in 100 mls @ 100 mls/hr IVPB Q12 [facility] PRN Reason: Protocol Stop: 07/07/17 22:01 Last Admin: 10/11/16 21:08 Dose: 100 mls/hr Levalbuterol HCl (Xopenex) 0.63 mg IH [id number] PRN PRN Reason: Shortness of Breath Last Admin: 10/11/16 20:22 Dose: 0.63 mg Pantoprazole Sodium (Protonix Inj) 40 mg IVP DAILY [facility] Last Admin: 10/11/16 10:42 Dose: 40 mg Potassium Chloride (K-Dur 20 Meq Er Tab) 20 meq PO BRK [facility] Last Admin: 10/11/16 08:17 Dose: 20 meq Verapamil HCl (Calan Tab) 40 mg PO TID [facility] Last Admin: 10/11/16 17:18 Dose: 40 mg - Labs Labs: 10/11/16 05:50 10/11/16 05:50 PT 14.7 Seconds (9.9-11.8) H 10/09/16 11:20 INR 1.36 (0.93-1.08) H 10/09/16 11:20 APTT 24.7 Seconds (23.7-30.8) 10/09/16 11:20 - Constitutional Appears: No Acute Distress - Head Exam Head Exam: ATRAUMATIC, NORMAL INSPECTION, NORMOCEPHALIC - ENT Exam ENT Exam: Mucous Membranes Moist, Normal Exam - Neck Exam Neck Exam: Full ROM, Normal Inspection. absent: Lymphadenopathy - Respiratory Exam Respiratory Exam: Rales, Rhonchi - Cardiovascular Exam Cardiovascular Exam: Irregular Rhythm - GI/Abdominal Exam GI & Abdominal Exam: Soft, Normal Bowel Sounds. absent: Tenderness - Extremities Exam Extremities Exam: Full ROM, Normal Capillary Refill, Normal Inspection. absent : Joint Swelling, Pedal Edema - Neurological Exam Neurological Exam: Alert, Awake, CN II-XII Intact, Normal Gait, Oriented x3 - Skin Skin Exam: Erythema Assessment and Plan (1) Diverticulitis large intestine Assessment & Plan: on anti biotics, Status: Acute (2) Congestive heart failure Assessment & Plan: diuretics Status: Acute (3) Rapid atrial fibrillation Assessment & Plan: on calan and eliquis Status: Acute (4) Anemia Assessment & Plan: follow up H and H Status: Acute (5) Bilateral lower leg cellulitis Status: Acute (6) Sleep apnea in adult Assessment & Plan: C PAP while sleeping Status: Acute - Assessment and Plan (Free Text) Plan: out of bed to chair and physical therapy
--- NOTE | 2016-10-12 02:56 | CP.PCM.PN ---
Subjective - Date & Time of Evaluation Date of Evaluation: 10/12/16 Time of Evaluation: 02:55 - Subjective Subjective: Nurse calls and tells that breathing is better, heart rate has been >130 /min for past few minutes. Patient is asymptomatic resting comfortably. HR 136/min. 111/61 98.4*F 97% 0n 2L/min. Asymptomatic. This 85 year old white woman was admitted with sob, swelling of legs. Has PMH of CHF,atrial fibrillation, CVA, COPD, HLD, HTN. Objective - Vital Signs/Intake and Output Vital Signs (last 24 hours): Temp Pulse Resp BP Pulse Ox 98.4 F 130 H 20 111/61 97 10/12/16 02:50 10/12/16 02:50 10/12/16 02:50 10/12/16 02:50 10/12/16 02:50 Intake and Output: 10/11/16 10/12/16 18:59 06:59 Intake Total 730 Output Total 300 Balance 430 - Medications Medications: Current Medications Albuterol/Ipratropium (Duoneb 3 Mg/0.5 Mg (3 Ml) Ud) 3 ml IH TIDRESP [facility] Last Admin: 10/11/16 19:17 Dose: 3 ml Alprazolam (Xanax) 0.25 mg PO DAILY PRN PRN Reason: Anxiety Stop: 10/18/16 10:01 Last Admin: 10/11/16 10:42 Dose: 0.25 mg Apixaban (Eliquis) 2.5 mg PO BID [facility] PRN Reason: Protocol Last Admin: 10/11/16 17:19 Dose: 2.5 mg Arformoterol Tartrate (Brovana) 15 mcg [facility] [id number] [facility] Last Admin: 10/11/16 19:18 Dose: 15 mcg Budesonide (Pulmicort Respules) 0.5 mg IH [id number] [facility] Last Admin: 10/11/16 19:18 Dose: 0.5 mg Furosemide (Lasix) 40 mg PO DAILY [facility] Last Admin: 10/11/16 10:41 Dose: 40 mg Meropenem 1g/NS 100mL IVPB (Meropenem 1g/Ns 100ml Ivpb) 1 gm in 100 mls @ 100 mls/hr IVPB Q12 [facility] PRN Reason: Protocol Stop: 10/19/16 22:01 Last Admin: 10/11/16 21:08 Dose: 100 mls/hr Levalbuterol HCl (Xopenex) 0.63 mg IH [id number] PRN PRN Reason: Shortness of Breath Last Admin: 10/11/16 20:22 Dose: 0.63 mg Pantoprazole Sodium (Protonix Inj) 40 mg IVP DAILY [facility] Last Admin: 10/11/16 10:42 Dose: 40 mg Potassium Chloride (K-Dur 20 Meq Er Tab) 20 meq PO BRK [facility] Last Admin: 10/11/16 08:17 Dose: 20 meq Verapamil HCl (Calan Tab) 40 mg PO TID [facility] Last Admin: 10/11/16 17:18 Dose: 40 mg - Labs Labs: 10/11/16 05:50 10/11/16 05:50 PT 14.7 Seconds (9.9-11.8) H 10/09/16 11:20 INR 1.36 (0.93-1.08) H 10/09/16 11:20 APTT 24.7 Seconds (23.7-30.8) 10/09/16 11:20 - Constitutional Appears: Well, No Acute Distress, Other (Sleeping comfortably.) - Head Exam Head Exam: ATRAUMATIC, NORMAL INSPECTION, NORMOCEPHALIC - Eye Exam Eye Exam: Normal appearance - ENT Exam ENT Exam: Normal External Ear Exam - Neck Exam Neck Exam: Normal Inspection - Respiratory Exam Respiratory Exam: NORMAL BREATHING PATTERN - Cardiovascular Exam Cardiovascular Exam: absent: JVD - Rectal Exam Rectal Exam: Deferred - Exam Additional comments: Above deferred. - Extremities Exam Additional comments: Left foot erythematous skin, warm, diminished DP pulse. - Back Exam Back Exam: NORMAL INSPECTION - Neurological Exam Additional comments: Resting. - Psychiatric Exam Additional comments: Resting. - Skin Skin Exam: Normal Color Assessment and Plan - Assessment and Plan (Free Text) Assessment: Atrial fibrillation with RVR. Acute diverticulitis. CHF. COPD. HTN. HLD. Plan: Cardizem 10 mg IV stat. BMP, mag, phos, trop. Continue present management.
[2016-10-12 03:34] LABS: CALCIUM 7.9 mg/dL (8.4-10.5); MAGNESIUM 1.8 mg/dL (1.7-2.2)
[2016-10-12 03:45] LABS: TROPONIN I 0.01 ng/mL
[2016-10-12] MEDS: Pantoprazole 40 mg EC Tab PO SCH (05:38)
--- NOTE | 2016-10-12 07:51 | PQF SEPSIS ---
This form is a permanent part of the medical record Dr. Xavier, ID outside solar sales consultant noted sepsis POA as a diagnosis. Please document in your notes if you concur, was it ruled out, undetermined? Clarification of your documentation is requested to better reflect the severity of illness and intensity of treatment of your patient. Indicators present [] Temp < 96.8 or > 100.4 [] WBC count > 12,000/mm3 or <000/mm3 or 10% immature neutrophils [] Heart Rate > 90 [] Respiratory Rate > 20 [] Fever or hypothermia [] Chills [] Positive blood cultures [] Hypotension [] Metabolic acidosis (Elevated lactate level, anion gap or reduced blood pH) [] Acute confusion /Altered Mental Status [] Shock [] Other: [] Location in the medical record that reflects the above clinical findings: [] Treatment Provided: [] PHYSICIAN'S RESPONSE Based on your medical judgment of the clinical indicators outlined above, are you treating this patient for a known or suspected: [] Sepsis / Septicemia Please specify organism if known [] [] SIRS (Systemic Inflammatory Response Syndrome) [] Severe Sepsis (Sepsis with Associated Organ Dysfunction) [] Fever of Unknown Origin [] Other, please indicate: [] [] If Unable to Determine, please check the box, sign and date. Present On Admission (POA) Indicator: [] Present at the time of admission [] Not present at the time of admission [] Clinically Undetermined In responding to this query, please exercise your independent professional judgment. The fact that a question is asked does not imply that any particular answer is desired or expected. Thank you for your clarification on this documentation. If you have any questions please call:[ ] * Thank you, [ ]Brian [facility] #[id number] pipe straightener NAIN
[2016-10-12] MEDS: Albuterol-Ipratrop 3 mg / 0.5 (3 ml) UD IH SCH ×3 (08:41→19:53)
[2016-10-12] MEDS: Budesonide 0.5 mg/2 ml Inhal Susp UD IH SCH ×2 (08:41→19:53)
[2016-10-12] MEDS: Arformoterol 15 mcg/2 ml Inh Sol IH SCH ×2 (08:41→19:53)
[2016-10-12] MEDS ORDERED: Digoxin 500 mcg/2ml (0.5 mg/2ml) Inj IVP ONE (08:46)
--- NOTE | 2016-10-12 08:46 | CP.PCM.PN ---
Subjective - Date & Time of Evaluation Date of Evaluation: 10/12/16 Time of Evaluation: 07:15 - Subjective Subjective: Feels Ok Objective - Vital Signs/Intake and Output Vital Signs (last 24 hours): Temp Pulse Resp BP Pulse Ox 97.6 F 112 H 20 96/70 L 98 10/12/16 05:54 10/12/16 05:54 10/12/16 05:54 10/12/16 06:24 10/12/16 05:54 Intake and Output: 10/12/16 10/12/16 06:59 18:59 Intake Total 900 Output Total 500 Balance 400 - Medications Medications: Current Medications Albuterol/Ipratropium (Duoneb 3 Mg/0.5 Mg (3 Ml) Ud) 3 ml IH TIDRESP [facility] Last Admin: 10/12/16 08:41 Dose: 3 ml Alprazolam (Xanax) 0.25 mg PO Q6 PRN PRN Reason: Anxiety Stop: 10/19/16 12:01 Apixaban (Eliquis) 2.5 mg PO BID [facility] PRN Reason: Protocol Last Admin: 10/11/16 17:19 Dose: 2.5 mg Arformoterol Tartrate (Brovana) 15 mcg IH [id number] [facility] Last Admin: 10/12/16 08:41 Dose: 15 mcg Budesonide (Pulmicort Respules) 0.5 mg IH [id number] [facility] Last Admin: 10/12/16 08:41 Dose: 0.5 mg Furosemide (Lasix) 40 mg PO DAILY [facility] Last Admin: 10/11/16 10:41 Dose: 40 mg Meropenem 1g/NS 100mL IVPB (Meropenem 1g/Ns 100ml Ivpb) 1 gm in 100 mls @ 100 mls/hr IVPB Q12 [facility] PRN Reason: Protocol Stop: 10/19/16 22:01 Last Admin: 10/11/16 21:08 Dose: 100 mls/hr Levalbuterol HCl (Xopenex) 0.63 mg IH [id number] PRN PRN Reason: Shortness of Breath Last Admin: 10/11/16 20:22 Dose: 0.63 mg Pantoprazole Sodium (Protonix Ec Tab) 40 mg PO 0600 [facility] Last Admin: 10/12/16 05:38 Dose: 40 mg Verapamil HCl (Calan Tab) 80 mg PO TID [facility] - Labs Labs: 10/11/16 05:50 10/12/16 03:00 PT 14.7 Seconds (9.9-11.8) H 10/09/16 11:20 INR 1.36 (0.93-1.08) H 10/09/16 11:20 APTT 24.7 Seconds (23.7-30.8) 10/09/16 11:20 Assessment and Plan - Assessment and Plan (Free Text) Assessment: 85 year old femal with PMhx of Afib, 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
[2016-10-12] MEDS: Meropenem 1g/NS 100mL IVPB 1 GM/100 ML PIGGYBACK IVPB SCH ×2 (09:13→22:19)
[2016-10-12 09:14] VITALS: PULSE 130
--- NOTE | 2016-10-12 10:02 | CP.PCM.PN ---
Subjective - Date & Time of Evaluation Date of Evaluation: 10/12/16 Time of Evaluation: 09:15 - Subjective Subjective: WEAK Objective - Vital Signs/Intake and Output Vital Signs (last 24 hours): Temp Pulse Resp BP Pulse Ox 97.6 F 130 H 20 109/88 98 10/12/16 05:54 10/12/16 09:12 10/12/16 05:54 10/12/16 09:12 10/12/16 05:54 Intake and Output: 10/12/16 10/12/16 06:59 18:59 Intake Total 900 Output Total 500 Balance 400 - Medications Medications: Current Medications Albuterol/Ipratropium (Duoneb 3 Mg/0.5 Mg (3 Ml) Ud) 3 ml IH TIDRESP [facility] Last Admin: 10/12/16 08:41 Dose: 3 ml Alprazolam (Xanax) 0.25 mg PO Q6 PRN PRN Reason: Anxiety Stop: 10/19/16 12:01 Apixaban (Eliquis) 2.5 mg PO BID [facility] PRN Reason: Protocol Last Admin: 10/12/16 09:13 Dose: 2.5 mg Arformoterol Tartrate (Brovana) 15 mcg IH [id number] [facility] Last Admin: 10/12/16 08:41 Dose: 15 mcg Atenolol (Tenormin) 12.5 mg PO BID [facility] Last Admin: 10/12/16 09:12 Dose: 12.5 mg Budesonide (Pulmicort Respules) 0.5 mg IH [id number] [facility] Last Admin: 10/12/16 08:41 Dose: 0.5 mg Furosemide (Lasix) 40 mg PO DAILY [facility] Last Admin: 10/12/16 09:11 Dose: 40 mg Meropenem 1g/NS 100mL IVPB (Meropenem 1g/Ns 100ml Ivpb) 1 gm in 100 mls @ 100 mls/hr IVPB Q12 [facility] PRN Reason: Protocol Stop: 10/19/16 22:01 Last Admin: 10/12/16 09:13 Dose: 100 mls/hr Levalbuterol HCl (Xopenex) 0.63 mg IH [id number] PRN PRN Reason: Shortness of Breath Last Admin: 10/11/16 20:22 Dose: 0.63 mg Pantoprazole Sodium (Protonix Ec Tab) 40 mg PO 0600 [facility] Last Admin: 10/12/16 05:38 Dose: 40 mg Verapamil HCl (Calan Tab) 80 mg PO TID [facility] Last Admin: 10/12/16 09:12 Dose: 80 mg - Labs Labs: 10/11/16 05:50 10/12/16 03:00 PT 14.7 Seconds (9.9-11.8) H 10/09/16 11:20 INR 1.36 (0.93-1.08) H 10/09/16 11:20 APTT 24.7 Seconds (23.7-30.8) 10/09/16 11:20 - Constitutional Appears: Well - Head Exam Head Exam: ATRAUMATIC, NORMAL INSPECTION, NORMOCEPHALIC - Eye Exam Eye Exam: EOMI, Normal appearance, PERRL Pupil Exam: NORMAL ACCOMODATION, PERRL - ENT Exam ENT Exam: Mucous Membranes Moist, Normal Exam - Neck Exam Neck Exam: Full ROM, Normal Inspection. absent: Lymphadenopathy - Respiratory Exam Respiratory Exam: Clear to Ausculation Bilateral, NORMAL BREATHING PATTERN - Cardiovascular Exam Cardiovascular Exam: REGULAR RHYTHM, +S1, +S2. absent: Murmur - GI/Abdominal Exam GI & Abdominal Exam: Soft, Normal Bowel Sounds. absent: Tenderness - Rectal Exam Rectal Exam: NORMAL INSPECTION - Exam Exam: Circumcision, NORMAL INSPECTION External exam: NORMAL EXTERNAL EXAM Speculum exam: NORMAL SPECULUM EXAM Bimanual exam: NORMAL BIMANUAL EXAM - Extremities Exam Extremities Exam: Full ROM, Normal Capillary Refill, Normal Inspection. absent : Joint Swelling, Pedal Edema - Back Exam Back Exam: NORMAL INSPECTION - Neurological Exam Neurological Exam: Alert, Awake, CN II-XII Intact, Normal Gait, Oriented x3 - Psychiatric Exam Psychiatric exam: Normal Affect, Normal Mood - Skin Skin Exam: Dry, Intact, Normal Color, Warm Assessment and Plan (1) Sepsis Status: Acute (2) Acute diverticulitis Status: Acute (3) Acute diastolic (congestive) heart failure Status: Acute - Assessment and Plan (Free Text) Plan: JOSE
[2016-10-12] MEDS: Potassium Chloride 20 mEq ER Tab PO SCH (14:27)
--- NOTE | 2016-10-12 16:39 | CP.PCM.PN ---
Subjective - Date & Time of Evaluation Date of Evaluation: 10/12/16 Time of Evaluation: 13:00 - Subjective Subjective: This is an 85Y F with PMH chronic a.fib on Eliquis, CHF, CVA x 2, COPD, HTN, HLD , c. diff who came to the ED for SOB x 2 days. She reports that she was feeling more SOB overtime. The patient also noticed more swelling and pain in her legs. feels better today, decrease sob, no chest pain, no leg swelling fels tired and sleepy Objective - Vital Signs/Intake and Output Vital Signs (last 24 hours): Temp Pulse Resp BP Pulse Ox 98 F 83 16 111/83 98 10/12/16 11:36 10/12/16 14:09 10/12/16 11:36 10/12/16 14:09 10/12/16 05:54 Intake and Output: 10/12/16 10/12/16 06:59 18:59 Intake Total 900 540 Output Total 500 500 Balance 400 40 - Medications Medications: Current Medications Albuterol/Ipratropium (Duoneb 3 Mg/0.5 Mg (3 Ml) Ud) 3 ml IH TIDRESP [facility] Last Admin: 10/12/16 13:45 Dose: 3 ml Alprazolam (Xanax) 0.25 mg PO Q6 PRN PRN Reason: Anxiety Stop: 10/19/16 12:01 Last Admin: 10/12/16 14:11 Dose: 0.25 mg Apixaban (Eliquis) 2.5 mg PO BID [facility] PRN Reason: Protocol Last Admin: 10/12/16 09:13 Dose: 2.5 mg Arformoterol Tartrate (Brovana) 15 mcg IH [id number] [facility] Last Admin: 10/12/16 08:41 Dose: 15 mcg Atenolol (Tenormin) 12.5 mg PO BID [facility] Last Admin: 10/12/16 09:12 Dose: 12.5 mg Budesonide (Pulmicort Respules) 0.5 mg IH [id number] [facility] Last Admin: 10/12/16 08:41 Dose: 0.5 mg Furosemide (Lasix) 40 mg PO DAILY [facility] Last Admin: 10/12/16 09:11 Dose: 40 mg Meropenem 1g/NS 100mL IVPB (Meropenem 1g/Ns 100ml Ivpb) 1 gm in 100 mls @ 100 mls/hr IVPB Q12 [facility] PRN Reason: Protocol Stop: 10/19/16 22:01 Last Admin: 10/12/16 09:13 Dose: 100 mls/hr Levalbuterol HCl (Xopenex) 0.63 mg IH [id number] PRN PRN Reason: Shortness of Breath Last Admin: 10/11/16 20:22 Dose: 0.63 mg Pantoprazole Sodium (Protonix Ec Tab) 40 mg PO 0600 [facility] Last Admin: 10/12/16 05:38 Dose: 40 mg Verapamil HCl (Calan Tab) 80 mg PO TID [facility] Last Admin: 10/12/16 14:09 Dose: 80 mg - Labs Labs: 10/11/16 05:50 10/12/16 03:00 PT 14.7 Seconds (9.9-11.8) H 10/09/16 11:20 INR 1.36 (0.93-1.08) H 10/09/16 11:20 APTT 24.7 Seconds (23.7-30.8) 10/09/16 11:20 - Constitutional Appears: Well - Head Exam Head Exam: ATRAUMATIC, NORMAL INSPECTION, NORMOCEPHALIC - Eye Exam Eye Exam: EOMI, Normal appearance, PERRL Pupil Exam: NORMAL ACCOMODATION, PERRL - ENT Exam ENT Exam: Mucous Membranes Moist, Normal Exam - Neck Exam Neck Exam: Full ROM, Normal Inspection. absent: Lymphadenopathy - Respiratory Exam Respiratory Exam: Rales, Rhonchi - Cardiovascular Exam Cardiovascular Exam: REGULAR RHYTHM, +S1, +S2. absent: Murmur - GI/Abdominal Exam GI & Abdominal Exam: Soft, Normal Bowel Sounds. absent: Tenderness - Extremities Exam Extremities Exam: Full ROM, Normal Capillary Refill, Normal Inspection. absent : Joint Swelling, Pedal Edema - Neurological Exam Neurological Exam: Alert, Awake, CN II-XII Intact, Normal Gait, Oriented x3 - Psychiatric Exam Psychiatric exam: Flat Affect - Skin Skin Exam: Dry, Intact, Normal Color, Warm Assessment and Plan (1) Diverticulitis large intestine Assessment & Plan: on antibiotics Status: Acute (2) Congestive heart failure Assessment & Plan: diuretics, anticoagulation, calan, Status: Acute (3) Rapid atrial fibrillation Assessment & Plan: calan,eliquis,and tenormin Status: Acute (4) Anemia Assessment & Plan: follow up H and H Status: Acute (5) Bilateral lower leg cellulitis Assessment & Plan: onantibiotic Status: Acute (6) Sleep apnea in adult Assessment & Plan: B PAP while sleeping, sleep apnea precaution, avoid sedation Status: Acute - Assessment and Plan (Free Text) Plan: physical thrrapy and rehab
--- NOTE | 2016-10-12 21:20 | CP.PCM.PN ---
Subjective - Date & Time of Evaluation Date of Evaluation: 10/12/16 Time of Evaluation: 21:14 - Subjective Subjective: Pt with no pain. No CP/SOB. Objective - Vital Signs/Intake and Output Vital Signs (last 24 hours): Temp Pulse Resp BP Pulse Ox 98 F 96 H 18 125/73 98 10/12/16 17:45 10/12/16 17:45 10/12/16 17:45 10/12/16 17:45 10/12/16 05:54 Intake and Output: 10/12/16 10/13/16 18:59 06:59 Intake Total 540 Output Total 500 Balance 40 - Medications Medications: Current Medications Albuterol/Ipratropium (Duoneb 3 Mg/0.5 Mg (3 Ml) Ud) 3 ml IH TIDRESP [facility] Last Admin: 10/12/16 19:53 Dose: 3 ml Alprazolam (Xanax) 0.25 mg PO Q6 PRN PRN Reason: Anxiety Stop: 10/19/16 12:01 Last Admin: 10/12/16 14:11 Dose: 0.25 mg Apixaban (Eliquis) 2.5 mg PO BID [facility] PRN Reason: Protocol Last Admin: 10/12/16 17:33 Dose: 2.5 mg Arformoterol Tartrate (Brovana) 15 mcg [facility] [id number] [facility] Last Admin: 10/12/16 19:53 Dose: 15 mcg Atenolol (Tenormin) 12.5 mg PO BID [facility] Last Admin: 10/12/16 17:33 Dose: 12.5 mg Budesonide (Pulmicort Respules) 0.5 mg IH [id number] [facility] Last Admin: 10/12/16 19:53 Dose: 0.5 mg Furosemide (Lasix) 40 mg PO DAILY [facility] Last Admin: 10/12/16 09:11 Dose: 40 mg Meropenem 1g/NS 100mL IVPB (Meropenem 1g/Ns 100ml Ivpb) 1 gm in 100 mls @ 100 mls/hr IVPB Q12 [facility] PRN Reason: Protocol Stop: 10/19/16 22:01 Last Admin: 10/12/16 09:13 Dose: 100 mls/hr Levalbuterol HCl (Xopenex) 0.63 mg IH [id number] PRN PRN Reason: Shortness of Breath Last Admin: 10/11/16 20:22 Dose: 0.63 mg Pantoprazole Sodium (Protonix Ec Tab) 40 mg PO 0600 [facility] Last Admin: 10/12/16 05:38 Dose: 40 mg Verapamil HCl (Calan Tab) 80 mg PO TID [facility] Last Admin: 10/12/16 17:33 Dose: 80 mg - Labs Labs: 10/11/16 05:50 10/12/16 03:00 PT 14.7 Seconds (9.9-11.8) H 10/09/16 11:20 INR 1.36 (0.93-1.08) H 10/09/16 11:20 APTT 24.7 Seconds (23.7-30.8) 10/09/16 11:20 - Constitutional Appears: Well - Head Exam Head Exam: ATRAUMATIC, NORMAL INSPECTION, NORMOCEPHALIC - Neck Exam Neck Exam: Full ROM, Normal Inspection. absent: Lymphadenopathy - Respiratory Exam Respiratory Exam: Clear to Ausculation Bilateral, NORMAL BREATHING PATTERN - Cardiovascular Exam Cardiovascular Exam: REGULAR RHYTHM, +S1, +S2. absent: Murmur - Psychiatric Exam Psychiatric exam: Normal Affect, Normal Mood Assessment and Plan - Assessment and Plan (Free Text) Assessment: Acute CHF- secondary diastolic dysfunction Pulm HTN COPD A fib Dyslipidemia Plan: Pt on Albuterol. On Verpamil increased. On Eliquis for A fib. On Meropenum for Abx. Will need NEFTALY. PT
[2016-10-13] MEDS: Pantoprazole 40 mg EC Tab PO SCH (05:27)
[2016-10-13 07:14] LABS: HEMOGLOBIN 8.6 gm/dL (12.0-16.0); MEAN CELL VOLUME 85.2 fL (80.0-105.0); MEAN CORPUSCULAR HEMOGLOBIN 25.4 pg (25.0-35.0); MEAN CORPUSCULAR HGB CONC 29.9 g/dl (31.0-37.0); MEAN PLATELET VOLUME 10.8 fl (7.0-11.0); RBC 3.38 10^6/uL (3.5-6.1); RED CELL DISTRIBUTION WIDTH 21.2 % (11.5-14.5); WHITE BLOOD COUNT 13.3 10^3/ul (4.5-11.0)
[2016-10-13] MEDS: Budesonide 0.5 mg/2 ml Inhal Susp UD IH SCH ×2 (07:36→20:55)
[2016-10-13] MEDS: Arformoterol 15 mcg/2 ml Inh Sol IH SCH ×2 (07:36→20:54)
[2016-10-13] MEDS: Albuterol-Ipratrop 3 mg / 0.5 (3 ml) UD IH SCH ×3 (07:36→20:55)
[2016-10-13 07:48] LABS: ALB/GLOB RATIO 0.9 (1.1-1.8); ALBUMIN 2.7 g/dL (3.0-4.8); ALT/SGPT 120 U/L (7-56); AST/SGOT 65 U/L (15-39); BLOOD UREA NITROGEN 26 mg/dL (7-21); CALCIUM 8.1 mg/dL (8.4-10.5); GFR AFRICAN-AMERICAN > 60; GFR NON-AFRICAN AMERICAN 52
[2016-10-13] MEDS: Meropenem 1g/NS 100mL IVPB 1 GM/100 ML PIGGYBACK IVPB SCH ×2 (09:23→22:59)
--- NOTE | 2016-10-13 10:46 | CP.PCM.PN ---
Subjective - Date & Time of Evaluation Date of Evaluation: 10/13/16 Time of Evaluation: 07:40 - Subjective Subjective: WEAKNESS Objective - Vital Signs/Intake and Output Vital Signs (last 24 hours): Temp Pulse Resp BP Pulse Ox 98 F 88 35 H 108/74 97 10/13/16 10:00 10/13/16 10:00 10/13/16 10:00 10/13/16 10:00 10/13/16 05:58 Intake and Output: 10/13/16 10/13/16 06:59 18:59 Intake Total 440 Balance 440 - Medications Medications: Current Medications Albuterol/Ipratropium (Duoneb 3 Mg/0.5 Mg (3 Ml) Ud) 3 ml IH TIDRESP [facility] Last Admin: 10/13/16 07:36 Dose: 3 ml Alprazolam (Xanax) 0.25 mg PO Q6 PRN PRN Reason: Anxiety Stop: 10/19/16 12:01 Last Admin: 10/13/16 09:00 Dose: 0.25 mg Apixaban (Eliquis) 2.5 mg PO BID [facility] PRN Reason: Protocol Last Admin: 10/13/16 09:23 Dose: 2.5 mg Arformoterol Tartrate (Brovana) 15 mcg IH [id number] [facility] Last Admin: 10/13/16 07:36 Dose: 15 mcg Atenolol (Tenormin) 12.5 mg PO BID [facility] Last Admin: 10/13/16 09:24 Dose: 12.5 mg Budesonide (Pulmicort Respules) 0.5 mg IH [id number] [facility] Last Admin: 10/13/16 07:36 Dose: 0.5 mg Furosemide (Lasix) 40 mg PO DAILY [facility] Last Admin: 10/13/16 09:22 Dose: 40 mg Meropenem 1g/NS 100mL IVPB (Meropenem 1g/Ns 100ml Ivpb) 1 gm in 100 mls @ 100 mls/hr IVPB Q12 [facility] PRN Reason: Protocol Stop: 10/19/16 22:01 Last Admin: 10/13/16 09:23 Dose: 100 mls/hr Levalbuterol HCl (Xopenex) 0.63 mg IH [id number] PRN PRN Reason: Shortness of Breath Last Admin: 10/11/16 20:22 Dose: 0.63 mg Pantoprazole Sodium (Protonix Ec Tab) 40 mg PO 0600 [facility] Last Admin: 10/13/16 05:27 Dose: 40 mg Vancomycin HCl (Vancocin 25 Mg/Ml (Oral Use)) 250 mg PO QID [facility] PRN Reason: Protocol Stop: 10/27/16 14:01 Verapamil HCl (Calan Tab) 80 mg PO TID [facility] Last Admin: 10/13/16 09:23 Dose: 80 mg - Labs Labs: 10/13/16 06:30 10/13/16 06:30 PT 14.7 Seconds (9.9-11.8) H 10/09/16 11:20 INR 1.36 (0.93-1.08) H 10/09/16 11:20 APTT 24.7 Seconds (23.7-30.8) 10/09/16 11:20 - Constitutional Appears: Well - Head Exam Head Exam: ATRAUMATIC, NORMAL INSPECTION, NORMOCEPHALIC - Eye Exam Eye Exam: EOMI, Normal appearance, PERRL Pupil Exam: NORMAL ACCOMODATION, PERRL - ENT Exam ENT Exam: Mucous Membranes Moist, Normal Exam - Neck Exam Neck Exam: Full ROM, Normal Inspection. absent: Lymphadenopathy - Respiratory Exam Respiratory Exam: Clear to Ausculation Bilateral, NORMAL BREATHING PATTERN - Cardiovascular Exam Cardiovascular Exam: REGULAR RHYTHM, +S1, +S2. absent: Murmur - GI/Abdominal Exam GI & Abdominal Exam: Soft, Normal Bowel Sounds. absent: Tenderness - Rectal Exam Rectal Exam: NORMAL INSPECTION - Exam Exam: Circumcision, NORMAL INSPECTION External exam: NORMAL EXTERNAL EXAM Speculum exam: NORMAL SPECULUM EXAM Bimanual exam: NORMAL BIMANUAL EXAM - Extremities Exam Extremities Exam: Full ROM, Normal Capillary Refill, Normal Inspection. absent : Joint Swelling, Pedal Edema - Back Exam Back Exam: NORMAL INSPECTION - Neurological Exam Neurological Exam: Alert, Awake, CN II-XII Intact, Normal Gait, Oriented x3 - Psychiatric Exam Psychiatric exam: Normal Affect, Normal Mood - Skin Skin Exam: Dry, Intact, Normal Color, Warm Assessment and Plan (1) Sepsis Status: Acute (2) Acute diverticulitis Status: Acute (3) Acute diastolic (congestive) heart failure Status: Acute (4) Pseudomembranous colitis Status: Acute - Assessment and Plan (Free Text) Plan: ADD PO VANCO
[2016-10-13 10:53] LABS: ARTERIAL BLOOD GAS HEMOGLOBIN 8.8 g/dL (11.7-17.4); ARTERIAL BLOOD GAS O2 CAPACITY 12.2 mL/dl (16-24); ARTERIAL BLOOD GAS O2 SAT 98.7 % (95-98); ARTERIAL BLOOD GAS PCO2 27 mm/Hg (35-45); ARTERIAL BLOOD GAS PH 7.52 (7.35-7.45); ARTERIAL BLOOD GAS TCO2 22.8 mmol.L (22-28)
--- NOTE | 2016-10-13 10:57 | CP.PCM.PN ---
Subjective - Date & Time of Evaluation Date of Evaluation: 10/13/16 Time of Evaluation: 10:22 - Subjective Subjective: Patient seen stat at the request of her RN for observation of increased rate of respiration. She is currently on BIPAP(12/5 ,30% O2,rate of 12). Patient c/o worsening SOB,but denies c/o chest pain,calf pain,abdominal pain or any other complaints. Her VS are BP 108/74 P 88 RR 35 T 98 PMH:Acute CHF secondary to diastolic dysfunction,COPD,Pul HTN,Chronic Afib, Dyslipidemia. Objective - Vital Signs/Intake and Output Vital Signs (last 24 hours): Temp Pulse Resp BP Pulse Ox 98 F 88 35 H 108/74 97 10/13/16 10:00 10/13/16 10:00 10/13/16 10:00 10/13/16 10:00 10/13/16 05:58 Intake and Output: 10/13/16 10/13/16 06:59 18:59 Intake Total 440 Balance 440 - Medications Medications: Current Medications Albuterol/Ipratropium (Duoneb 3 Mg/0.5 Mg (3 Ml) Ud) 3 ml IH TIDRESP [facility] Last Admin: 10/13/16 07:36 Dose: 3 ml Alprazolam (Xanax) 0.25 mg PO Q6 PRN PRN Reason: Anxiety Stop: 10/19/16 12:01 Last Admin: 10/13/16 09:00 Dose: 0.25 mg Apixaban (Eliquis) 2.5 mg PO BID [facility] PRN Reason: Protocol Last Admin: 10/13/16 09:23 Dose: 2.5 mg Arformoterol Tartrate (Brovana) 15 mcg IH [id number] [facility] Last Admin: 10/13/16 07:36 Dose: 15 mcg Atenolol (Tenormin) 12.5 mg PO BID [facility] Last Admin: 10/13/16 09:24 Dose: 12.5 mg Budesonide (Pulmicort Respules) 0.5 mg IH [id number] [facility] Last Admin: 10/13/16 07:36 Dose: 0.5 mg Furosemide (Lasix) 40 mg PO DAILY [facility] Last Admin: 10/13/16 09:22 Dose: 40 mg Meropenem 1g/NS 100mL IVPB (Meropenem 1g/Ns 100ml Ivpb) 1 gm in 100 mls @ 100 mls/hr IVPB Q12 [facility] PRN Reason: Protocol Stop: 10/19/16 22:01 Last Admin: 10/13/16 09:23 Dose: 100 mls/hr Levalbuterol HCl (Xopenex) 0.63 mg IH [id number] PRN PRN Reason: Shortness of Breath Last Admin: 10/11/16 20:22 Dose: 0.63 mg Pantoprazole Sodium (Protonix Ec Tab) 40 mg PO 0600 [facility] Last Admin: 10/13/16 05:27 Dose: 40 mg Vancomycin HCl (Vancocin 25 Mg/Ml (Oral Use)) 250 mg PO QID [facility] PRN Reason: Protocol Stop: 10/27/16 14:01 Verapamil HCl (Calan Tab) 80 mg PO TID [facility] Last Admin: 10/13/16 09:23 Dose: 80 mg - Labs Labs: 10/13/16 06:30 10/13/16 06:30 PT 14.7 Seconds (9.9-11.8) H 10/09/16 11:20 INR 1.36 (0.93-1.08) H 10/09/16 11:20 APTT 24.7 Seconds (23.7-30.8) 10/09/16 11:20 - Constitutional Appears: Other (mildly dyspneic) - Head Exam Head Exam: NORMAL INSPECTION, NORMOCEPHALIC - Eye Exam Eye Exam: PERRL - ENT Exam ENT Exam: Mucous Membranes Moist - Neck Exam Neck Exam: Normal Inspection - Respiratory Exam Respiratory Exam: Decreased Breath Sounds Additional comments: crepitations heard at both bases. - Cardiovascular Exam Cardiovascular Exam: Irregular Rhythm - GI/Abdominal Exam GI & Abdominal Exam: Soft, Normal Bowel Sounds. absent: Tenderness - Extremities Exam Extremities Exam: Normal Inspection. absent: Calf Tenderness - Neurological Exam Neurological Exam: Alert, Awake, Oriented x3 - Psychiatric Exam Psychiatric exam: Anxious - Skin Skin Exam: Dry, Warm Assessment and Plan - Assessment and Plan (Free Text) Assessment: Exacerbation of COPD Plan: Abg,Ekg CXray portable ordered stat. Discussed with Dr Ruiz. Will give patient Solumedrol 125 mg iv stat,then 40 mg iv BID Consult requested with Dr Lange.
[2016-10-13] MEDS: Levalbuterol 0.63 MG/3 ML Inhal Soln UD IH PRN (11:10)
--- NOTE | 2016-10-13 11:19 | RAD ---
HISTORY: Shortness of breath. Technique: Single view portable semi erect @ 10:40. COMPARISON: 10/09/2016. FINDINGS: LUNGS: Progressive consolidative changes right lower lobe. PLEURA: Increasing right pleural effusion. CARDIOVASCULAR: No significant interval change compared to the prior examination(s). OSSEOUS STRUCTURES: No significant abnormalities. VISUALIZED UPPER ABDOMEN: Normal. OTHER FINDINGS: None. IMPRESSION: Increasing right pleural effusion/progressive perhaps compressive atelectasis right lower lobe.
--- NOTE | 2016-10-13 20:15 | CARD ---
APPROVED REPORT EKG Measurement Heart [id number] <Conclusion> A fib with moderate rate Abnormal ECG
[2016-10-13] MEDS: MethylPREDNISolone 40 mg Vial IV SCH (23:03)
[2016-10-13] MEDS: Vancomycin 25 MG/ML PO SCH (23:03)
--- NOTE | 2016-10-14 00:08 | CP.PCM.PN ---
Subjective - Date & Time of Evaluation Date of Evaluation: 10/13/16 Time of Evaluation: 14:00 - Subjective Subjective: This is an 85Y F with PMH chronic a.fib on Eliquis, CHF, CVA x 2, COPD, HTN, HLD , c. diff who came to the ED for SOB x 2 days. She reports that she was feeling more SOB overtime. The patient also noticed more swelling and pain in her legs. feels better today, decrease sob, no chest pain, no leg swelling episode of SOB today, patient was made DNR, Objective - Vital Signs/Intake and Output Vital Signs (last 24 hours): Temp Pulse Resp BP Pulse Ox 98 F 66 35 H 102/58 L 97 10/13/16 10:00 10/13/16 13:40 10/13/16 10:00 10/13/16 13:40 10/13/16 05:58 Intake and Output: 10/13/16 10/14/16 18:59 06:59 Intake Total 440 Balance 440 - Medications Medications: Current Medications Albuterol/Ipratropium (Duoneb 3 Mg/0.5 Mg (3 Ml) Ud) 3 ml IH TIDRESP [facility] Last Admin: 10/13/16 20:55 Dose: 3 ml Alprazolam (Xanax) 0.25 mg PO Q6 PRN PRN Reason: Anxiety Stop: 10/19/16 12:01 Last Admin: 10/13/16 09:00 Dose: 0.25 mg Apixaban (Eliquis) 2.5 mg PO BID [facility] PRN Reason: Protocol Last Admin: 10/13/16 09:23 Dose: 2.5 mg Arformoterol Tartrate (Brovana) 15 mcg IH [id number] [facility] Last Admin: 10/13/16 20:54 Dose: 15 mcg Atenolol (Tenormin) 12.5 mg PO BID [facility] Last Admin: 10/13/16 09:24 Dose: 12.5 mg Budesonide (Pulmicort Respules) 0.5 mg IH [id number] [facility] Last Admin: 10/13/16 20:55 Dose: 0.5 mg Furosemide (Lasix) 40 mg PO DAILY [facility] Last Admin: 10/13/16 09:22 Dose: 40 mg Meropenem 1g/NS 100mL IVPB (Meropenem 1g/Ns 100ml Ivpb) 1 gm in 100 mls @ 100 mls/hr IVPB Q12 [facility] PRN Reason: Protocol Stop: 10/19/16 22:01 Last Admin: 10/13/16 09:23 Dose: 100 mls/hr Levalbuterol HCl (Xopenex) 0.63 mg IH [id number] PRN PRN Reason: Shortness of Breath Last Admin: 10/13/16 11:10 Dose: 0.63 mg Methylprednisolone (Solu-Medrol) 40 mg IV Q12 [facility] Pantoprazole Sodium (Protonix Ec Tab) 40 mg PO 0600 [facility] Last Admin: 10/13/16 05:27 Dose: 40 mg Vancomycin HCl (Vancocin 25 Mg/Ml (Oral Use)) 250 mg PO QID [facility] PRN Reason: Protocol Stop: 10/27/16 14:01 Verapamil HCl (Calan Tab) 80 mg PO TID [facility] Last Admin: 10/13/16 09:23 Dose: 80 mg - Labs Labs: 10/13/16 06:30 10/13/16 06:30 PT 14.7 Seconds (9.9-11.8) H 10/09/16 11:20 INR 1.36 (0.93-1.08) H 10/09/16 11:20 APTT 24.7 Seconds (23.7-30.8) 10/09/16 11:20 - Constitutional Appears: Chronically Ill - Head Exam Head Exam: ATRAUMATIC, NORMAL INSPECTION, NORMOCEPHALIC - Eye Exam Eye Exam: EOMI, Normal appearance, PERRL Pupil Exam: NORMAL ACCOMODATION, PERRL - Neck Exam Neck Exam: Full ROM, Normal Inspection. absent: Lymphadenopathy - Respiratory Exam Respiratory Exam: Rales, Rhonchi - Cardiovascular Exam Cardiovascular Exam: Tachycardia - GI/Abdominal Exam GI & Abdominal Exam: Soft, Normal Bowel Sounds. absent: Tenderness - Extremities Exam Extremities Exam: Full ROM, Normal Capillary Refill, Normal Inspection. absent : Joint Swelling, Pedal Edema - Neurological Exam Neurological Exam: Altered - Psychiatric Exam Psychiatric exam: Flat Affect Assessment and Plan (1) Diverticulitis large intestine Assessment & Plan: on antibiotic Status: Acute (2) Congestive heart failure Assessment & Plan: diuretic change to iv Status: Acute (3) Rapid atrial fibrillation Assessment & Plan: on elaquis and beta serenity Status: Acute (4) Anemia Status: Acute (5) Bilateral lower leg cellulitis Assessment & Plan: on antibiotic Status: Acute (6) Sleep apnea in adult Assessment & Plan: b pap as needed Status: Acute - Assessment and Plan (Free Text) Plan: supportive care
[2016-10-14] MEDS: Pantoprazole 40 mg EC Tab PO SCH (05:07)
[2016-10-14] MEDS: Arformoterol 15 mcg/2 ml Inh Sol IH SCH ×2 (07:25→20:15)
[2016-10-14] MEDS: Albuterol-Ipratrop 3 mg / 0.5 (3 ml) UD IH SCH ×3 (07:25→20:15)
[2016-10-14] MEDS: Budesonide 0.5 mg/2 ml Inhal Susp UD IH SCH ×2 (07:26→20:15)
[2016-10-14 08:24] LABS: HEMOGLOBIN 8.8 gm/dL (12.0-16.0); MEAN CELL VOLUME 83.5 fL (80.0-105.0); MEAN CORPUSCULAR HEMOGLOBIN 25.4 pg (25.0-35.0); MEAN CORPUSCULAR HGB CONC 30.4 g/dl (31.0-37.0); MEAN PLATELET VOLUME 11.3 fl (7.0-11.0); RBC 3.46 10^6/uL (3.5-6.1); WHITE BLOOD COUNT 8.6 10^3/ul (4.5-11.0)
[2016-10-14 08:34] LABS: ALBUMIN 2.9 g/dL (3.0-4.8); ALT/SGPT 141 U/L (7-56); AST/SGOT 69 U/L (15-39); BLOOD UREA NITROGEN 32 mg/dL (7-21); CALCIUM 8.3 mg/dL (8.4-10.5); GFR AFRICAN-AMERICAN > 60; GFR NON-AFRICAN AMERICAN 52
[2016-10-14 08:38] LABS: ALB/GLOB RATIO 0.9 (1.1-1.8)
[2016-10-14] MEDS: Vancomycin 25 MG/ML PO SCH ×4 (10:03→22:23)
[2016-10-14] MEDS: MethylPREDNISolone 40 mg Vial IV SCH ×2 (10:05→21:04)
[2016-10-14] MEDS: Meropenem 1g/NS 100mL IVPB 1 GM/100 ML PIGGYBACK IVPB SCH ×2 (10:05→21:06)
--- NOTE | 2016-10-14 10:39 | CP.PCM.PN ---
Subjective - Date & Time of Evaluation Date of Evaluation: 10/14/16 Time of Evaluation: 08:30 - Subjective Subjective: DOING BETTER Objective - Vital Signs/Intake and Output Vital Signs (last 24 hours): Temp Pulse Resp BP Pulse Ox 98.5 F 78 19 119/96 H 97 10/14/16 05:37 10/14/16 10:04 10/14/16 05:37 10/14/16 10:04 10/14/16 05:37 Intake and Output: 10/14/16 10/14/16 06:59 18:59 Intake Total 240 Balance 240 - Medications Medications: Current Medications Albuterol/Ipratropium (Duoneb 3 Mg/0.5 Mg (3 Ml) Ud) 3 ml IH TIDRESP [facility] Last Admin: 10/14/16 07:25 Dose: 3 ml Alprazolam (Xanax) 0.25 mg PO Q6 PRN PRN Reason: Anxiety Stop: 10/19/16 12:01 Last Admin: 10/14/16 02:32 Dose: 0.25 mg Apixaban (Eliquis) 2.5 mg PO BID [facility] PRN Reason: Protocol Last Admin: 10/14/16 10:03 Dose: 2.5 mg Arformoterol Tartrate (Brovana) 15 mcg [facility] [id number] [facility] Last Admin: 10/14/16 07:25 Dose: 15 mcg Atenolol (Tenormin) 12.5 mg PO BID [facility] Last Admin: 10/14/16 10:04 Dose: 12.5 mg Budesonide (Pulmicort Respules) 0.5 mg IH [id number] [facility] Last Admin: 10/14/16 07:26 Dose: 0.5 mg Furosemide (Lasix) 20 mg IVP Q8 [facility] Last Admin: 10/14/16 05:07 Dose: 20 mg Meropenem 1g/NS 100mL IVPB (Meropenem 1g/Ns 100ml Ivpb) 1 gm in 100 mls @ 100 mls/hr IVPB Q12 [facility] PRN Reason: Protocol Stop: 10/19/16 22:01 Last Admin: 10/14/16 10:05 Dose: 100 mls/hr Levalbuterol HCl (Xopenex) 0.63 mg IH [id number] PRN PRN Reason: Shortness of Breath Last Admin: 10/13/16 11:10 Dose: 0.63 mg Methylprednisolone (Solu-Medrol) 40 mg IV Q12 [facility] Last Admin: 10/14/16 10:05 Dose: 40 mg Pantoprazole Sodium (Protonix Ec Tab) 40 mg PO 0600 [facility] Last Admin: 10/14/16 05:07 Dose: 40 mg Vancomycin HCl (Vancocin 25 Mg/Ml (Oral Use)) 250 mg PO QID [facility] PRN Reason: Protocol Stop: 10/27/16 14:01 Last Admin: 10/14/16 10:03 Dose: 250 mg Verapamil HCl (Calan Tab) 80 mg PO TID [facility] Last Admin: 10/14/16 10:04 Dose: 80 mg - Labs Labs: 10/14/16 08:01 10/14/16 08:01 PT 14.7 Seconds (9.9-11.8) H 10/09/16 11:20 INR 1.36 (0.93-1.08) H 10/09/16 11:20 APTT 24.7 Seconds (23.7-30.8) 10/09/16 11:20 - Constitutional Appears: Well - Head Exam Head Exam: ATRAUMATIC, NORMAL INSPECTION, NORMOCEPHALIC - Eye Exam Eye Exam: EOMI, Normal appearance, PERRL Pupil Exam: NORMAL ACCOMODATION, PERRL - ENT Exam ENT Exam: Mucous Membranes Moist, Normal Exam - Neck Exam Neck Exam: Full ROM, Normal Inspection. absent: Lymphadenopathy - Respiratory Exam Respiratory Exam: Clear to Ausculation Bilateral, NORMAL BREATHING PATTERN - Cardiovascular Exam Cardiovascular Exam: REGULAR RHYTHM, +S1, +S2. absent: Murmur - GI/Abdominal Exam GI & Abdominal Exam: Soft, Normal Bowel Sounds. absent: Tenderness - Rectal Exam Rectal Exam: NORMAL INSPECTION - Exam Exam: Circumcision, NORMAL INSPECTION External exam: NORMAL EXTERNAL EXAM Speculum exam: NORMAL SPECULUM EXAM Bimanual exam: NORMAL BIMANUAL EXAM - Extremities Exam Extremities Exam: Full ROM, Normal Capillary Refill, Normal Inspection. absent : Joint Swelling, Pedal Edema - Back Exam Back Exam: NORMAL INSPECTION - Neurological Exam Neurological Exam: Alert, Awake, CN II-XII Intact, Normal Gait, Oriented x3 - Psychiatric Exam Psychiatric exam: Normal Affect, Normal Mood - Skin Skin Exam: Dry, Intact, Normal Color, Warm Assessment and Plan (1) Sepsis Status: Acute (2) Acute diverticulitis Status: Acute (3) Acute diastolic (congestive) heart failure Status: Acute (4) Pseudomembranous colitis Status: Acute - Assessment and Plan (Free Text) Plan: JOSE /DARYL RUBY
[2016-10-14] MEDS: Levalbuterol 0.63 MG/3 ML Inhal Soln UD IH PRN (11:05)
[2016-10-14] MEDS ORDERED: Potassium Chloride 20 mEq ER Tab PO ONE (11:35)
--- NOTE | 2016-10-14 22:30 | CP.PCM.PN ---
Subjective - Date & Time of Evaluation Date of Evaluation: 10/14/16 Time of Evaluation: 10:00 - Subjective Subjective: This is an 85Y F with PMH chronic a.fib on Eliquis, CHF, CVA x 2, COPD, HTN, HLD , c. diff who came to the ED for SOB x 2 days. She reports that she was feeling more SOB overtime. The patient also noticed more swelling and pain in her legs. feels better today, decrease sob, no chest pain, no leg swelling episode of SOB today, patient was made DNR, on bpap since yesterday and feels better Objective - Vital Signs/Intake and Output Vital Signs (last 24 hours): Temp Pulse Resp BP Pulse Ox 97.4 F L 93 H 22 122/65 97 10/14/16 18:00 10/14/16 18:00 10/14/16 18:00 10/14/16 21:05 10/14/16 05:37 - Medications Medications: Current Medications Albuterol/Ipratropium (Duoneb 3 Mg/0.5 Mg (3 Ml) Ud) 3 ml IH TIDRESP [facility] Last Admin: 10/14/16 20:15 Dose: 3 ml Alprazolam (Xanax) 0.25 mg PO Q6 PRN PRN Reason: Anxiety Stop: 10/19/16 12:01 Last Admin: 10/14/16 20:51 Dose: 0.25 mg Apixaban (Eliquis) 2.5 mg PO BID [facility] PRN Reason: Protocol Last Admin: 10/14/16 17:37 Dose: 2.5 mg Arformoterol Tartrate (Brovana) 15 mcg IH [id number] [facility] Last Admin: 10/14/16 20:15 Dose: 15 mcg Atenolol (Tenormin) 12.5 mg PO BID [facility] Last Admin: 10/14/16 17:36 Dose: Not Given Budesonide (Pulmicort Respules) 0.5 mg IH [id number] [facility] Last Admin: 10/14/16 20:15 Dose: 0.5 mg Furosemide (Lasix) 20 mg IVP Q8 [facility] Last Admin: 10/14/16 21:05 Dose: 20 mg Meropenem 1g/NS 100mL IVPB (Meropenem 1g/Ns 100ml Ivpb) 1 gm in 100 mls @ 100 mls/hr IVPB Q12 [facility] PRN Reason: Protocol Stop: 10/19/16 22:01 Last Admin: 10/14/16 21:06 Dose: 100 mls/hr Levalbuterol HCl (Xopenex) 0.63 mg IH [id number] PRN PRN Reason: Shortness of Breath Last Admin: 10/14/16 11:05 Dose: 0.63 mg Methylprednisolone (Solu-Medrol) 40 mg IV Q12 [facility] Last Admin: 10/14/16 21:04 Dose: 40 mg Pantoprazole Sodium (Protonix Ec Tab) 40 mg PO 0600 [facility] Last Admin: 10/14/16 05:07 Dose: 40 mg Potassium Chloride (K-Dur 20 Meq Er Tab) 20 meq PO BRK [facility] Vancomycin HCl (Vancocin 25 Mg/Ml (Oral Use)) 250 mg PO QID [facility] PRN Reason: Protocol Stop: 10/27/16 14:01 Last Admin: 10/14/16 17:39 Dose: 250 mg Verapamil HCl (Calan Tab) 80 mg PO TID [facility] Last Admin: 10/14/16 17:36 Dose: Not Given - Labs Labs: 10/14/16 08:01 10/14/16 08:01 PT 14.7 Seconds (9.9-11.8) H 10/09/16 11:20 INR 1.36 (0.93-1.08) H 10/09/16 11:20 APTT 24.7 Seconds (23.7-30.8) 10/09/16 11:20 Assessment and Plan (1) Diverticulitis large intestine Assessment & Plan: on antibiotic Status: Acute (2) Congestive heart failure Assessment & Plan: diuretic, Status: Acute (3) Rapid atrial fibrillation Assessment & Plan: anti coagulation and calan along with beta locker Status: Acute (4) Anemia Assessment & Plan: follow h and h Status: Acute (5) Bilateral lower leg cellulitis Status: Acute (6) Sleep apnea in adult Assessment & Plan: b pap while sleeping Status: Acute
[2016-10-15] MEDS: Pantoprazole 40 mg EC Tab PO SCH (05:17)
[2016-10-15] MEDS: Albuterol-Ipratrop 3 mg / 0.5 (3 ml) UD IH SCH (07:39)
[2016-10-15] MEDS: Budesonide 0.5 mg/2 ml Inhal Susp UD IH SCH ×2 (07:39→19:57)
[2016-10-15] MEDS: Arformoterol 15 mcg/2 ml Inh Sol IH SCH ×2 (07:39→19:57)
[2016-10-15 08:22] LABS: BLOOD UREA NITROGEN 38 mg/dL (7-21); CALCIUM 8.4 mg/dL (8.4-10.5); GFR AFRICAN-AMERICAN > 60; GFR NON-AFRICAN AMERICAN 59; MAGNESIUM 1.9 mg/dL (1.7-2.2)
[2016-10-15] MEDS: Potassium Chloride 20 mEq ER Tab PO SCH (08:26)
--- NOTE | 2016-10-15 10:15 | CP.PCM.PN ---
Subjective - Date & Time of Evaluation Date of Evaluation: 10/15/16 Time of Evaluation: 07:00 - Subjective Subjective: Lying flat on bed not in apparent distress. Objective - Vital Signs/Intake and Output Vital Signs (last 24 hours): Temp Pulse Resp BP Pulse Ox 97.7 F 94 H 20 124/63 96 10/15/16 06:00 10/15/16 06:00 10/15/16 06:00 10/15/16 06:00 10/15/16 06:00 Intake and Output: 10/15/16 10/15/16 06:59 18:59 Intake Total 900 Balance 900 - Medications Medications: Current Medications Albuterol/Ipratropium (Duoneb 3 Mg/0.5 Mg (3 Ml) Ud) 3 ml IH TIDRESP [facility] Last Admin: 10/15/16 07:39 Dose: 3 ml Alprazolam (Xanax) 0.25 mg PO Q6 PRN PRN Reason: Anxiety Stop: 10/19/16 12:01 Last Admin: 10/14/16 20:51 Dose: 0.25 mg Apixaban (Eliquis) 2.5 mg PO BID [facility] PRN Reason: Protocol Last Admin: 10/14/16 17:37 Dose: 2.5 mg Arformoterol Tartrate (Brovana) 15 mcg IH [id number] [facility] Last Admin: 10/15/16 07:39 Dose: 15 mcg Atenolol (Tenormin) 12.5 mg PO BID [facility] Last Admin: 10/14/16 17:36 Dose: Not Given Budesonide (Pulmicort Respules) 0.5 mg IH [id number] [facility] Last Admin: 10/15/16 07:39 Dose: 0.5 mg Furosemide (Lasix) 20 mg IVP Q8 [facility] Last Admin: 10/15/16 05:23 Dose: 20 mg Meropenem 1g/NS 100mL IVPB (Meropenem 1g/Ns 100ml Ivpb) 1 gm in 100 mls @ 100 mls/hr IVPB Q12 [facility] PRN Reason: Protocol Stop: 10/19/16 22:01 Last Admin: 10/14/16 21:06 Dose: 100 mls/hr Levalbuterol HCl (Xopenex) 0.63 mg IH [id number] PRN PRN Reason: Shortness of Breath Last Admin: 10/14/16 11:05 Dose: 0.63 mg Methylprednisolone (Solu-Medrol) 40 mg IV Q12 [facility] Last Admin: 10/14/16 21:04 Dose: 40 mg Pantoprazole Sodium (Protonix Ec Tab) 40 mg PO 0600 [facility] Last Admin: 10/15/16 05:17 Dose: 40 mg Potassium Chloride (K-Dur 20 Meq Er Tab) 20 meq PO BRK [facility] Last Admin: 10/15/16 08:26 Dose: 20 meq Vancomycin HCl (Vancocin 25 Mg/Ml (Oral Use)) 250 mg PO QID [facility] PRN Reason: Protocol Stop: 10/27/16 14:01 Last Admin: 10/14/16 22:23 Dose: 250 mg Verapamil HCl (Calan Tab) 80 mg PO TID [facility] Last Admin: 10/14/16 17:36 Dose: Not Given - Labs Labs: 10/14/16 08:01 10/15/16 07:41 PT 14.7 Seconds (9.9-11.8) H 10/09/16 11:20 INR 1.36 (0.93-1.08) H 10/09/16 11:20 APTT 24.7 Seconds (23.7-30.8) 10/09/16 11:20 Assessment and Plan - Assessment and Plan (Free Text) Assessment: Ch. Larsen, was in A fib with RVR , now rate is controlled. CHF secondary to systolic dys Fx MR TR Sepsis/ respiratory tract infection Plan: Anti coag Renal adjusted dose rate limioting Ca channel Karen Increased Atenolo to 25 mg po BID. Dc Duo-Neublizer and change to Xopenox to prevent Tach cardia Continue antibiotics asa per ID. Dc tele.
[2016-10-15] MEDS ORDERED: Levalbuterol 0.63 MG/3 ML Inhal Soln UD IH PRN (10:16)
[2016-10-15] MEDS: Meropenem 1g/NS 100mL IVPB 1 GM/100 ML PIGGYBACK IVPB SCH (10:27)
[2016-10-15] MEDS: MethylPREDNISolone 40 mg Vial IV SCH ×2 (10:28→21:40)
[2016-10-15] MEDS: Vancomycin 25 MG/ML PO SCH (10:29)
--- NOTE | 2016-10-15 10:44 | CP.PCM.PN ---
Subjective - Date & Time of Evaluation Date of Evaluation: 10/15/16 Time of Evaluation: 09:30 - Subjective Subjective: WEAK Objective - Vital Signs/Intake and Output Vital Signs (last 24 hours): Temp Pulse Resp BP Pulse Ox 97.7 F 94 H 20 124/63 96 10/15/16 06:00 10/15/16 06:00 10/15/16 06:00 10/15/16 06:00 10/15/16 06:00 Intake and Output: 10/15/16 10/15/16 06:59 18:59 Intake Total 900 Balance 900 - Medications Medications: Current Medications Alprazolam (Xanax) 0.25 mg PO Q6 PRN PRN Reason: Anxiety Stop: 10/19/16 12:01 Last Admin: 10/14/16 20:51 Dose: 0.25 mg Apixaban (Eliquis) 2.5 mg PO BID [facility] PRN Reason: Protocol Last Admin: 10/14/16 17:37 Dose: 2.5 mg Arformoterol Tartrate (Brovana) 15 mcg IH [id number] [facility] Last Admin: 10/15/16 07:39 Dose: 15 mcg Atenolol (Tenormin) 25 mg PO BID [facility] Budesonide (Pulmicort Respules) 0.5 mg IH [id number] [facility] Last Admin: 10/15/16 07:39 Dose: 0.5 mg Furosemide (Lasix) 20 mg IVP Q8 [facility] Last Admin: 10/15/16 05:23 Dose: 20 mg Meropenem 1g/NS 100mL IVPB (Meropenem 1g/Ns 100ml Ivpb) 1 gm in 100 mls @ 100 mls/hr IVPB Q12 [facility] PRN Reason: Protocol Stop: 10/19/16 22:01 Last Admin: 10/14/16 21:06 Dose: 100 mls/hr Levalbuterol HCl (Xopenex) 0.63 mg IH [id number] PRN PRN Reason: Shortness of Breath Last Admin: 10/14/16 11:05 Dose: 0.63 mg Levalbuterol HCl (Xopenex) 0.63 mg IH [id number] PRN PRN Reason: Shortness of Breath Methylprednisolone (Solu-Medrol) 40 mg IV Q12 [facility] Last Admin: 10/14/16 21:04 Dose: 40 mg Pantoprazole Sodium (Protonix Ec Tab) 40 mg PO 0600 [facility] Last Admin: 10/15/16 05:17 Dose: 40 mg Potassium Chloride (K-Dur 20 Meq Er Tab) 20 meq PO BRK [facility] Last Admin: 10/15/16 08:26 Dose: 20 meq Vancomycin HCl (Vancocin 25 Mg/Ml (Oral Use)) 250 mg PO QID [facility] PRN Reason: Protocol Stop: 10/27/16 14:01 Last Admin: 10/14/16 22:23 Dose: 250 mg Verapamil HCl (Calan Tab) 80 mg PO TID [facility] Last Admin: 10/14/16 17:36 Dose: Not Given - Labs Labs: 10/14/16 08:01 10/15/16 07:41 PT 14.7 Seconds (9.9-11.8) H 10/09/16 11:20 INR 1.36 (0.93-1.08) H 10/09/16 11:20 APTT 24.7 Seconds (23.7-30.8) 10/09/16 11:20 - Constitutional Appears: Well - Head Exam Head Exam: ATRAUMATIC, NORMAL INSPECTION, NORMOCEPHALIC - Eye Exam Eye Exam: EOMI, Normal appearance, PERRL Pupil Exam: NORMAL ACCOMODATION, PERRL - ENT Exam ENT Exam: Mucous Membranes Moist, Normal Exam - Neck Exam Neck Exam: Full ROM, Normal Inspection. absent: Lymphadenopathy - Respiratory Exam Respiratory Exam: Clear to Ausculation Bilateral, NORMAL BREATHING PATTERN - Cardiovascular Exam Cardiovascular Exam: REGULAR RHYTHM, +S1, +S2. absent: Murmur - GI/Abdominal Exam GI & Abdominal Exam: Soft, Normal Bowel Sounds. absent: Tenderness - Rectal Exam Rectal Exam: NORMAL INSPECTION - Exam Exam: Circumcision, NORMAL INSPECTION External exam: NORMAL EXTERNAL EXAM Speculum exam: NORMAL SPECULUM EXAM Bimanual exam: NORMAL BIMANUAL EXAM - Extremities Exam Extremities Exam: Full ROM, Normal Capillary Refill, Normal Inspection. absent : Joint Swelling, Pedal Edema - Back Exam Back Exam: NORMAL INSPECTION - Neurological Exam Neurological Exam: Alert, Awake, CN II-XII Intact, Normal Gait, Oriented x3 - Psychiatric Exam Psychiatric exam: Normal Affect, Normal Mood - Skin Skin Exam: Dry, Intact, Normal Color, Warm Assessment and Plan (1) Sepsis Status: Acute (2) Acute diverticulitis Status: Acute (3) Acute diastolic (congestive) heart failure Status: Acute (4) Pseudomembranous colitis Status: Acute - Assessment and Plan (Free Text) Plan: DARYL RUBY /JOSE
--- NOTE | 2016-10-15 12:51 | CP.PCM.PN ---
<Macy,Kovil V - Last Filed: 10/15/16 23:54> Objective - Vital Signs/Intake and Output Vital Signs (last 24 hours): Temp Pulse Resp BP Pulse Ox 97.3 F L 93 H 18 138/72 96 10/15/16 17:52 10/15/16 18:00 10/15/16 17:52 10/15/16 21:43 10/15/16 06:00 - Medications Medications: Current Medications Alprazolam (Xanax) 0.25 mg PO Q6 PRN PRN Reason: Anxiety Stop: 10/19/16 12:01 Last Admin: 10/15/16 19:51 Dose: 0.25 mg Apixaban (Eliquis) 2.5 mg PO BID [facility] PRN Reason: Protocol Last Admin: 10/15/16 17:34 Dose: 2.5 mg Arformoterol Tartrate (Brovana) 15 mcg IH [id number] [facility] Last Admin: 10/15/16 19:57 Dose: 15 mcg Atenolol (Tenormin) 25 mg PO BID [facility] Last Admin: 10/15/16 17:34 Dose: 25 mg Budesonide (Pulmicort Respules) 0.5 mg IH [id number] [facility] Last Admin: 10/15/16 19:57 Dose: 0.5 mg Cefpodoxime Proxetil (Vantin) 200 mg PO Q12 [facility] PRN Reason: Protocol Stop: 10/22/16 22:01 Last Admin: 10/15/16 21:44 Dose: 200 mg Furosemide (Lasix) 20 mg IVP Q8 [facility] Last Admin: 10/15/16 21:43 Dose: 20 mg Levalbuterol HCl (Xopenex) 0.63 mg IH [id number] PRN PRN Reason: Shortness of Breath Last Admin: 10/15/16 14:13 Dose: 0.63 mg Methylprednisolone (Solu-Medrol) 40 mg IV Q12 [facility] Last Admin: 10/15/16 21:40 Dose: 40 mg Metronidazole (Flagyl) 500 mg PO Q8 [facility] PRN Reason: Protocol Stop: 10/25/16 14:01 Last Admin: 10/15/16 21:43 Dose: 500 mg Pantoprazole Sodium (Protonix Ec Tab) 40 mg PO 0600 [facility] Last Admin: 10/15/16 05:17 Dose: 40 mg Potassium Chloride (K-Dur 20 Meq Er Tab) 20 meq PO BRK [facility] Last Admin: 10/15/16 08:26 Dose: 20 meq Verapamil HCl (Calan Tab) 80 mg PO TID [facility] Last Admin: 10/15/16 17:33 Dose: 80 mg - Labs Labs: 10/14/16 08:01 10/15/16 07:41 PT 14.7 Seconds (9.9-11.8) H 10/09/16 11:20 INR 1.36 (0.93-1.08) H 10/09/16 11:20 APTT 24.7 Seconds (23.7-30.8) 10/09/16 11:20 Attending/Attestation - Attestation Notes (Text): this <Dorothea De Jesus - Last Filed: 10/17/16 16:39> Subjective - Date & Time of Evaluation Date of Evaluation: 10/15/16 Time of Evaluation: 10:00 - Subjective Subjective: Seen and examined at the bedside earlier, the chart was reviewed. Patient denies S OB, chest pain, nausea, vomiting, or abdominal pain.space no acute overnight events reported. Objective - Vital Signs/Intake and Output Vital Signs (last 24 hours): Temp Pulse Resp BP Pulse Ox 97.1 F L 111 H 18 114/71 96 10/15/16 12:00 10/15/16 12:00 10/15/16 12:00 10/15/16 12:00 10/15/16 06:00 Intake and Output: 10/15/16 10/15/16 06:59 18:59 Intake Total 900 Balance 900 - Medications Medications: Current Medications Alprazolam (Xanax) 0.25 mg PO Q6 PRN PRN Reason: Anxiety Stop: 10/19/16 12:01 Last Admin: 10/14/16 20:51 Dose: 0.25 mg Apixaban (Eliquis) 2.5 mg PO BID [facility] PRN Reason: Protocol Last Admin: 10/15/16 10:25 Dose: 2.5 mg Arformoterol Tartrate (Brovana) 15 mcg IH [id number] [facility] Last Admin: 10/15/16 07:39 Dose: 15 mcg Atenolol (Tenormin) 25 mg PO BID [facility] Budesonide (Pulmicort Respules) 0.5 mg IH [id number] [facility] Last Admin: 10/15/16 07:39 Dose: 0.5 mg Cefpodoxime Proxetil (Vantin) 200 mg PO Q12 [facility] PRN Reason: Protocol Stop: 10/22/16 22:01 Furosemide (Lasix) 20 mg IVP Q8 [facility] Last Admin: 10/15/16 05:23 Dose: 20 mg Levalbuterol HCl (Xopenex) 0.63 mg IH [id number] PRN PRN Reason: Shortness of Breath Last Admin: 10/14/16 11:05 Dose: 0.63 mg Levalbuterol HCl (Xopenex) 0.63 mg IH [id number] PRN PRN Reason: Shortness of Breath Methylprednisolone (Solu-Medrol) 40 mg IV Q12 [facility] Last Admin: 10/15/16 10:28 Dose: 40 mg Metronidazole (Flagyl) 500 mg PO Q8 [facility] PRN Reason: Protocol Stop: 10/25/16 14:01 Pantoprazole Sodium (Protonix Ec Tab) 40 mg PO 0600 [facility] Last Admin: 10/15/16 05:17 Dose: 40 mg Potassium Chloride (K-Dur 20 Meq Er Tab) 20 meq PO BRK [facility] Last Admin: 10/15/16 08:26 Dose: 20 meq Verapamil HCl (Calan Tab) 80 mg PO TID [facility] Last Admin: 10/15/16 10:31 Dose: 80 mg - Labs Labs: 10/14/16 08:01 10/15/16 07:41 PT 14.7 Seconds (9.9-11.8) H 10/09/16 11:20 INR 1.36 (0.93-1.08) H 10/09/16 11:20 APTT 24.7 Seconds (23.7-30.8) 10/09/16 11:20 - Constitutional Appears: No Acute Distress - Head Exam Head Exam: NORMAL INSPECTION - Eye Exam Eye Exam: Normal appearance. absent: Scleral icterus - ENT Exam ENT Exam: Mucous Membranes Moist - Neck Exam Neck Exam: Normal Inspection - Respiratory Exam Respiratory Exam: Decreased Breath Sounds, Rhonchi, NORMAL BREATHING PATTERN. absent: Respiratory Distress - Cardiovascular Exam Cardiovascular Exam: +S1, +S2 - GI/Abdominal Exam GI & Abdominal Exam: Soft, Normal Bowel Sounds. absent: Guarding, Tenderness, Rebound - Extremities Exam Extremities Exam: absent: Calf Tenderness Additional comments: mild erythema, left leg looks slightly better - Neurological Exam Neurological Exam: Alert, Awake, Oriented x3 - Skin Skin Exam: Dry, Warm Assessment and Plan - Assessment and Plan (Free Text) Assessment: ASSESSMENT: CDiff positive Antigen/Toxin Acute Diverticulitis, pt, no abdominal pain Leukocytosis CHF Elevated LFT/Hyperbilirubinemia, abdominal US no GB stone, CBD 3mm, maybe secondary to hepatic congestion Chronic Atrial Fibrillation Lower ext. cellulitis CVA COPD PLAN: diet as tolerated continue PPI on Eliquis on Lasix as per ID IV antibiotics DC and started on PO antibiotics Flagyl & Vantin on Solumedrol monitor electrolytes trend LFT ID eval Seen and discussed with Dr. Cavazos.
[2016-10-15] MEDS: Levalbuterol 0.63 MG/3 ML Inhal Soln UD IH PRN (14:13)
--- NOTE | 2016-10-15 17:51 | CP.PCM.PN ---
Subjective - Date & Time of Evaluation Date of Evaluation: 10/15/16 Time of Evaluation: 14:00 - Subjective Subjective: This is an 85Y F with PMH chronic a.fib on Eliquis, CHF, CVA x 2, COPD, HTN, HLD , c. diff who came to the ED for SOB x 2 days. She reports that she was feeling more SOB overtime. The patient also noticed more swelling and pain in her legs. been on non invasive ventilation, and feel ok Objective - Vital Signs/Intake and Output Vital Signs (last 24 hours): Temp Pulse Resp BP Pulse Ox 97.1 F L 105 H 18 155/78 H 96 10/15/16 12:00 10/15/16 17:34 10/15/16 12:00 10/15/16 17:34 10/15/16 06:00 Intake and Output: 10/15/16 10/15/16 06:59 18:59 Intake Total 900 Balance 900 - Medications Medications: Current Medications Alprazolam (Xanax) 0.25 mg PO Q6 PRN PRN Reason: Anxiety Stop: 10/19/16 12:01 Last Admin: 10/15/16 14:17 Dose: 0.25 mg Apixaban (Eliquis) 2.5 mg PO BID [facility] PRN Reason: Protocol Last Admin: 10/15/16 17:34 Dose: 2.5 mg Arformoterol Tartrate (Brovana) 15 mcg IH [id number] [facility] Last Admin: 10/15/16 07:39 Dose: 15 mcg Atenolol (Tenormin) 25 mg PO BID [facility] Last Admin: 10/15/16 17:34 Dose: 25 mg Budesonide (Pulmicort Respules) 0.5 mg IH [id number] [facility] Last Admin: 10/15/16 07:39 Dose: 0.5 mg Cefpodoxime Proxetil (Vantin) 200 mg PO Q12 [facility] PRN Reason: Protocol Stop: 10/22/16 22:01 Furosemide (Lasix) 20 mg IVP Q8 [facility] Last Admin: 10/15/16 14:17 Dose: 20 mg Levalbuterol HCl (Xopenex) 0.63 mg IH [id number] PRN PRN Reason: Shortness of Breath Last Admin: 10/15/16 14:13 Dose: 0.63 mg Methylprednisolone (Solu-Medrol) 40 mg IV Q12 [facility] Last Admin: 10/15/16 10:28 Dose: 40 mg Metronidazole (Flagyl) 500 mg PO Q8 [facility] PRN Reason: Protocol Stop: 10/25/16 14:01 Last Admin: 10/15/16 14:17 Dose: 500 mg Pantoprazole Sodium (Protonix Ec Tab) 40 mg PO 0600 [facility] Last Admin: 10/15/16 05:17 Dose: 40 mg Potassium Chloride (K-Dur 20 Meq Er Tab) 20 meq PO BRK [facility] Last Admin: 10/15/16 08:26 Dose: 20 meq Verapamil HCl (Calan Tab) 80 mg PO TID [facility] Last Admin: 10/15/16 17:33 Dose: 80 mg - Labs Labs: 10/14/16 08:01 10/15/16 07:41 PT 14.7 Seconds (9.9-11.8) H 10/09/16 11:20 INR 1.36 (0.93-1.08) H 10/09/16 11:20 APTT 24.7 Seconds (23.7-30.8) 10/09/16 11:20 - Constitutional Appears: No Acute Distress - Head Exam Head Exam: ATRAUMATIC, NORMAL INSPECTION, NORMOCEPHALIC - ENT Exam ENT Exam: Mucous Membranes Moist, Normal Exam - Respiratory Exam Respiratory Exam: Rales, Rhonchi - Cardiovascular Exam Cardiovascular Exam: Irregular Rhythm, +S1, +S2. absent: Murmur - GI/Abdominal Exam GI & Abdominal Exam: Soft, Normal Bowel Sounds. absent: Tenderness - Extremities Exam Extremities Exam: Full ROM, Normal Capillary Refill, Normal Inspection. absent : Joint Swelling, Pedal Edema Assessment and Plan (1) Diverticulitis large intestine Assessment & Plan: antibiotics Status: Acute (2) Congestive heart failure Assessment & Plan: diuretics Status: Acute (3) Rapid atrial fibrillation Assessment & Plan: anti coagulation and beta bloker Status: Acute (4) Anemia Assessment & Plan: follow h and h Status: Acute (5) Bilateral lower leg cellulitis Assessment & Plan: improve Status: Acute (6) Sleep apnea in adult Assessment & Plan: on B PAP Status: Acute - Assessment and Plan (Free Text) Plan: poor prognosis, palliative care consult
[2016-10-15] MEDS: Cefpodoxime (Vantin) 200 mg Tab PO SCH (21:44)
[2016-10-16] MEDS: Levalbuterol 0.63 MG/3 ML Inhal Soln UD IH PRN ×3 (02:57→18:57)
[2016-10-16] MEDS: Pantoprazole 40 mg EC Tab PO SCH (05:46)
[2016-10-16] MEDS: Budesonide 0.5 mg/2 ml Inhal Susp UD IH SCH ×2 (08:13→19:02)
[2016-10-16] MEDS: Potassium Chloride 20 mEq ER Tab PO SCH (08:13)
[2016-10-16] MEDS: Arformoterol 15 mcg/2 ml Inh Sol IH SCH ×2 (08:14→19:02)
[2016-10-16] MEDS: Cefpodoxime (Vantin) 200 mg Tab PO SCH ×2 (10:12→21:56)
[2016-10-16] MEDS: MethylPREDNISolone 40 mg Vial IV SCH ×2 (10:13→21:49)
--- NOTE | 2016-10-16 10:54 | CP.PCM.PN ---
Subjective - Date & Time of Evaluation Date of Evaluation: 10/16/16 Time of Evaluation: 08:00 - Subjective Subjective: DOING WELL Objective - Vital Signs/Intake and Output Vital Signs (last 24 hours): Temp Pulse Resp BP Pulse Ox 97.9 F 89 19 141/78 96 10/16/16 05:30 10/16/16 10:13 10/16/16 05:30 10/16/16 10:13 10/16/16 05:30 Intake and Output: 10/16/16 10/16/16 06:59 18:59 Intake Total 640 Balance 640 - Medications Medications: Current Medications Alprazolam (Xanax) 0.25 mg PO Q6 PRN PRN Reason: Anxiety Stop: 10/19/16 12:01 Last Admin: 10/16/16 01:51 Dose: 0.25 mg Apixaban (Eliquis) 2.5 mg PO BID [facility] PRN Reason: Protocol Last Admin: 10/16/16 10:12 Dose: 2.5 mg Arformoterol Tartrate (Brovana) 15 mcg IH [id number] [facility] Last Admin: 10/16/16 08:14 Dose: 15 mcg Atenolol (Tenormin) 25 mg PO BID [facility] Last Admin: 10/16/16 10:12 Dose: 25 mg Budesonide (Pulmicort Respules) 0.5 mg IH [id number] [facility] Last Admin: 10/16/16 08:13 Dose: 0.5 mg Cefpodoxime Proxetil (Vantin) 200 mg PO Q12 [facility] PRN Reason: Protocol Stop: 10/22/16 22:01 Last Admin: 10/16/16 10:12 Dose: 200 mg Furosemide (Lasix) 20 mg IVP Q8 [facility] Last Admin: 10/16/16 05:47 Dose: 20 mg Levalbuterol HCl (Xopenex) 0.63 mg IH [id number] PRN PRN Reason: Shortness of Breath Last Admin: 10/16/16 10:47 Dose: 0.63 mg Methylprednisolone (Solu-Medrol) 40 mg IV Q12 [facility] Last Admin: 10/16/16 10:13 Dose: 40 mg Metronidazole (Flagyl) 500 mg PO Q8 [facility] PRN Reason: Protocol Stop: 10/25/16 14:01 Last Admin: 10/16/16 05:47 Dose: 500 mg Pantoprazole Sodium (Protonix Ec Tab) 40 mg PO 0600 [facility] Last Admin: 10/16/16 05:46 Dose: 40 mg Potassium Chloride (K-Dur 20 Meq Er Tab) 20 meq PO BRK [facility] Last Admin: 10/16/16 08:13 Dose: 20 meq Verapamil HCl (Calan Tab) 80 mg PO TID [facility] Last Admin: 10/16/16 10:13 Dose: 80 mg - Labs Labs: 10/14/16 08:01 10/15/16 07:41 PT 14.7 Seconds (9.9-11.8) H 10/09/16 11:20 INR 1.36 (0.93-1.08) H 10/09/16 11:20 APTT 24.7 Seconds (23.7-30.8) 10/09/16 11:20 - Constitutional Appears: Well - Head Exam Head Exam: ATRAUMATIC, NORMAL INSPECTION, NORMOCEPHALIC - Eye Exam Eye Exam: EOMI, Normal appearance, PERRL Pupil Exam: NORMAL ACCOMODATION, PERRL - ENT Exam ENT Exam: Mucous Membranes Moist, Normal Exam - Neck Exam Neck Exam: Full ROM, Normal Inspection. absent: Lymphadenopathy - Respiratory Exam Respiratory Exam: Clear to Ausculation Bilateral, NORMAL BREATHING PATTERN - Cardiovascular Exam Cardiovascular Exam: REGULAR RHYTHM, +S1, +S2. absent: Murmur - GI/Abdominal Exam GI & Abdominal Exam: Soft, Normal Bowel Sounds. absent: Tenderness - Rectal Exam Rectal Exam: NORMAL INSPECTION - Exam Exam: Circumcision, NORMAL INSPECTION External exam: NORMAL EXTERNAL EXAM Speculum exam: NORMAL SPECULUM EXAM Bimanual exam: NORMAL BIMANUAL EXAM - Extremities Exam Extremities Exam: Full ROM, Normal Capillary Refill, Normal Inspection. absent : Joint Swelling, Pedal Edema - Back Exam Back Exam: NORMAL INSPECTION - Neurological Exam Neurological Exam: Alert, Awake, CN II-XII Intact, Normal Gait, Oriented x3 - Psychiatric Exam Psychiatric exam: Normal Affect, Normal Mood - Skin Skin Exam: Dry, Intact, Normal Color, Warm Assessment and Plan (1) Sepsis Status: Acute (2) Acute diverticulitis Status: Acute (3) Acute diastolic (congestive) heart failure Status: Acute (4) Pseudomembranous colitis Status: Acute - Assessment and Plan (Free Text) Plan: PO FLAGYL /PO VANTIN
--- NOTE | 2016-10-16 12:02 | CP.PCM.PN ---
Subjective - Date & Time of Evaluation Date of Evaluation: 10/16/16 Time of Evaluation: 09:00 - Subjective Subjective: Feels ok no chest pain, SOB or palpitation. Objective - Vital Signs/Intake and Output Vital Signs (last 24 hours): Temp Pulse Resp BP Pulse Ox 97.9 F 89 19 139/75 96 10/16/16 05:30 10/16/16 10:13 10/16/16 05:30 10/16/16 11:00 10/16/16 05:30 Intake and Output: 10/16/16 10/16/16 06:59 18:59 Intake Total 640 Balance 640 - Medications Medications: Current Medications Alprazolam (Xanax) 0.25 mg PO Q6 PRN PRN Reason: Anxiety Stop: 10/19/16 12:01 Last Admin: 10/16/16 11:00 Dose: 0.25 mg Apixaban (Eliquis) 2.5 mg PO BID [facility] PRN Reason: Protocol Last Admin: 10/16/16 10:12 Dose: 2.5 mg Arformoterol Tartrate (Brovana) 15 mcg IH [id number] [facility] Last Admin: 10/16/16 08:14 Dose: 15 mcg Atenolol (Tenormin) 25 mg PO BID [facility] Last Admin: 10/16/16 10:12 Dose: 25 mg Budesonide (Pulmicort Respules) 0.5 mg IH [id number] [facility] Last Admin: 10/16/16 08:13 Dose: 0.5 mg Cefpodoxime Proxetil (Vantin) 200 mg PO Q12 [facility] PRN Reason: Protocol Stop: 10/22/16 22:01 Last Admin: 10/16/16 10:12 Dose: 200 mg Furosemide (Lasix) 20 mg IVP Q8 [facility] Last Admin: 10/16/16 05:47 Dose: 20 mg Levalbuterol HCl (Xopenex) 0.63 mg IH [id number] PRN PRN Reason: Shortness of Breath Last Admin: 10/16/16 10:47 Dose: 0.63 mg Methylprednisolone (Solu-Medrol) 40 mg IV Q12 [facility] Last Admin: 10/16/16 10:13 Dose: 40 mg Metronidazole (Flagyl) 500 mg PO Q8 [facility] PRN Reason: Protocol Stop: 10/25/16 14:01 Last Admin: 10/16/16 05:47 Dose: 500 mg Pantoprazole Sodium (Protonix Ec Tab) 40 mg PO 0600 [facility] Last Admin: 10/16/16 05:46 Dose: 40 mg Potassium Chloride (K-Dur 20 Meq Er Tab) 20 meq PO BRK [facility] Last Admin: 10/16/16 08:13 Dose: 20 meq Verapamil HCl (Calan Tab) 80 mg PO TID [facility] Last Admin: 10/16/16 10:13 Dose: 80 mg - Labs Labs: 10/14/16 08:01 10/15/16 07:41 PT 14.7 Seconds (9.9-11.8) H 10/09/16 11:20 INR 1.36 (0.93-1.08) H 10/09/16 11:20 APTT 24.7 Seconds (23.7-30.8) 10/09/16 11:20 Assessment and Plan - Assessment and Plan (Free Text) Assessment: Ch a fib COPD exacerbation MR TR sepsis sensitive with Duponeublizer Treatment .... AFib with RVR Plan: Avoid nduo neblizer Change to Xopenoxc sTAT Lasix Contionue Anti coag continue beta serenity Continue Verapamil.
--- NOTE | 2016-10-16 17:11 | CP.PCM.PN ---
Subjective - Date & Time of Evaluation Date of Evaluation: 10/16/16 Time of Evaluation: 14:00 - Subjective Subjective: This is an 85Y F with PMH chronic a.fib on Eliquis, CHF, CVA x 2, COPD, HTN, HLD , c. diff who came to the ED for SOB x 2 days. She reports that she was feeling more SOB overtime. today off B PAP and feels better, decrease SOB Objective - Vital Signs/Intake and Output Vital Signs (last 24 hours): Temp Pulse Resp BP Pulse Ox 97.4 F L 82 20 105/63 99 10/16/16 15:57 10/16/16 15:57 10/16/16 15:57 10/16/16 16:23 10/16/16 15:57 Intake and Output: 10/16/16 10/16/16 06:59 18:59 Intake Total 640 Balance 640 - Medications Medications: Current Medications Alprazolam (Xanax) 0.25 mg PO Q6 PRN PRN Reason: Anxiety Stop: 10/19/16 12:01 Last Admin: 10/16/16 11:00 Dose: 0.25 mg Apixaban (Eliquis) 2.5 mg PO BID [facility] PRN Reason: Protocol Last Admin: 10/16/16 10:12 Dose: 2.5 mg Arformoterol Tartrate (Brovana) 15 mcg IH [id number] [facility] Last Admin: 10/16/16 08:14 Dose: 15 mcg Atenolol (Tenormin) 25 mg PO BID [facility] Last Admin: 10/16/16 10:12 Dose: 25 mg Budesonide (Pulmicort Respules) 0.5 mg IH [id number] [facility] Last Admin: 10/16/16 08:13 Dose: 0.5 mg Cefpodoxime Proxetil (Vantin) 200 mg PO Q12 [facility] PRN Reason: Protocol Stop: 10/22/16 22:01 Last Admin: 10/16/16 10:12 Dose: 200 mg Furosemide (Lasix) 20 mg IVP Q8 [facility] Last Admin: 10/16/16 16:23 Dose: Not Given Levalbuterol HCl (Xopenex) 0.63 mg IH [id number] PRN PRN Reason: Shortness of Breath Last Admin: 10/16/16 10:47 Dose: 0.63 mg Methylprednisolone (Solu-Medrol) 40 mg IV Q12 [facility] Last Admin: 10/16/16 10:13 Dose: 40 mg Metronidazole (Flagyl) 500 mg PO Q8 [facility] PRN Reason: Protocol Stop: 10/25/16 14:01 Last Admin: 10/16/16 14:58 Dose: 500 mg Pantoprazole Sodium (Protonix Ec Tab) 40 mg PO 0600 [facility] Last Admin: 10/16/16 05:46 Dose: 40 mg Potassium Chloride (K-Dur 20 Meq Er Tab) 20 meq PO BRK [facility] Last Admin: 10/16/16 08:13 Dose: 20 meq Verapamil HCl (Calan Tab) 80 mg PO TID [facility] Last Admin: 10/16/16 14:58 Dose: 80 mg - Labs Labs: 10/14/16 08:01 10/15/16 07:41 PT 14.7 Seconds (9.9-11.8) H 10/09/16 11:20 INR 1.36 (0.93-1.08) H 10/09/16 11:20 APTT 24.7 Seconds (23.7-30.8) 10/09/16 11:20 - Constitutional Appears: No Acute Distress - Neck Exam Neck Exam: Full ROM, Normal Inspection. absent: Lymphadenopathy - Respiratory Exam Respiratory Exam: Rales - Cardiovascular Exam Cardiovascular Exam: Irregular Rhythm - GI/Abdominal Exam GI & Abdominal Exam: Soft, Normal Bowel Sounds. absent: Tenderness - Extremities Exam Extremities Exam: Full ROM, Normal Capillary Refill, Normal Inspection. absent : Joint Swelling, Pedal Edema - Psychiatric Exam Psychiatric exam: Anxious - Skin Skin Exam: Dry, Intact, Normal Color, Warm Assessment and Plan (1) Diverticulitis large intestine Assessment & Plan: on antibiotics Status: Acute (2) Congestive heart failure Assessment & Plan: diuretics Status: Acute (3) Rapid atrial fibrillation Assessment & Plan: eliquis and betablocher Status: Acute (4) Anemia Assessment & Plan: follow H and H Status: Acute (5) Bilateral lower leg cellulitis Assessment & Plan: improve Status: Acute (6) Sleep apnea in adult Assessment & Plan: B PAP Status: Acute - Assessment and Plan (Free Text) Plan: physical therapy, out of bed to chair
[2016-10-17] MEDS: Pantoprazole 40 mg EC Tab PO SCH (05:29)
[2016-10-17] MEDS: Budesonide 0.5 mg/2 ml Inhal Susp UD IH SCH ×2 (07:55→19:35)
[2016-10-17] MEDS: Arformoterol 15 mcg/2 ml Inh Sol IH SCH ×2 (07:55→19:35)
[2016-10-17] MEDS: MethylPREDNISolone 40 mg Vial IV SCH (10:42)
[2016-10-17] MEDS: Cefpodoxime (Vantin) 200 mg Tab PO SCH (10:47)
[2016-10-17] MEDS: Potassium Chloride 20 mEq ER Tab PO SCH (10:48)
--- NOTE | 2016-10-17 11:03 | CP.PCM.PN ---
Subjective - Date & Time of Evaluation Date of Evaluation: 10/17/16 Time of Evaluation: 08:45 - Subjective Subjective: Seen and examined this am. As per nursing staff had 4 "pasty diarrhea" last night. Patient good appetite, plate clean and drinking ensue. Denies SOB, CP , N /V , abdominal pain. No complaints. Objective - Vital Signs/Intake and Output Vital Signs (last 24 hours): Temp Pulse Resp BP Pulse Ox 97.4 F L 75 20 119/66 95 10/17/16 07:30 10/17/16 07:59 10/17/16 07:30 10/17/16 07:30 10/17/16 07:30 Intake and Output: 10/17/16 10/17/16 06:59 18:59 Intake Total 120 Output Total 1 Balance 119 - Medications Medications: Current Medications Alprazolam (Xanax) 0.25 mg PO Q6 PRN PRN Reason: Anxiety Stop: 10/19/16 12:01 Last Admin: 10/16/16 19:11 Dose: 0.25 mg Apixaban (Eliquis) 2.5 mg PO BID [facility] PRN Reason: Protocol Last Admin: 10/16/16 18:40 Dose: 2.5 mg Arformoterol Tartrate (Brovana) 15 mcg [facility] [id number] [facility] Last Admin: 10/17/16 07:55 Dose: 15 mcg Atenolol (Tenormin) 25 mg PO BID [facility] Last Admin: 10/16/16 18:40 Dose: 25 mg Budesonide (Pulmicort Respules) 0.5 mg IH [id number] [facility] Last Admin: 10/17/16 07:55 Dose: 0.5 mg Cefpodoxime Proxetil (Vantin) 200 mg PO Q12 [facility] PRN Reason: Protocol Stop: 10/22/16 22:01 Last Admin: 10/16/16 21:56 Dose: 200 mg Furosemide (Lasix) 20 mg IVP Q8 [facility] Last Admin: 10/17/16 05:27 Dose: 20 mg Levalbuterol HCl (Xopenex) 0.63 mg IH [id number] PRN PRN Reason: Shortness of Breath Last Admin: 10/16/16 18:57 Dose: 0.63 mg Methylprednisolone (Solu-Medrol) 40 mg IV Q12 [facility] Last Admin: 10/16/16 21:49 Dose: 40 mg Metronidazole (Flagyl) 500 mg PO Q8 [facility] PRN Reason: Protocol Stop: 10/25/16 14:01 Last Admin: 10/17/16 05:29 Dose: 500 mg Pantoprazole Sodium (Protonix Ec Tab) 40 mg PO 0600 [facility] Last Admin: 10/17/16 05:29 Dose: 40 mg Potassium Chloride (K-Dur 20 Meq Er Tab) 20 meq PO BRK [facility] Last Admin: 10/16/16 08:13 Dose: 20 meq Verapamil HCl (Calan Tab) 80 mg PO TID [facility] Last Admin: 10/16/16 18:39 Dose: 80 mg - Labs Labs: 10/14/16 08:01 10/15/16 07:41 PT 14.7 Seconds (9.9-11.8) H 10/09/16 11:20 INR 1.36 (0.93-1.08) H 10/09/16 11:20 APTT 24.7 Seconds (23.7-30.8) 10/09/16 11:20 - Constitutional Appears: No Acute Distress - Head Exam Head Exam: NORMAL INSPECTION - Eye Exam Eye Exam: Normal appearance. absent: Scleral icterus - ENT Exam ENT Exam: Mucous Membranes Moist - Neck Exam Neck Exam: Normal Inspection - Respiratory Exam Respiratory Exam: NORMAL BREATHING PATTERN. absent: Respiratory Distress - Cardiovascular Exam Cardiovascular Exam: +S1, +S2 - GI/Abdominal Exam GI & Abdominal Exam: Soft, Normal Bowel Sounds. absent: Guarding, Tenderness, Rebound - Extremities Exam Extremities Exam: absent: Calf Tenderness (eyrthema improved), Pedal Edema - Neurological Exam Neurological Exam: Alert, Awake, Oriented x3 - Skin Skin Exam: Dry, Warm Assessment and Plan - Assessment and Plan (Free Text) Assessment: ASSESSMENT: CDiff positive Antigen/Toxin, improving diarrhea Acute Diverticulitis, pt, no abdominal pain s/p Leukocytosis CHF Lower Ext. Cellutitis Elevated LFT/Hyperbilirubinemia, abdominal US no GB stone, CBD 3mm, maybe secondary to hepatic congestion Chronic Atrial Fibrillation CVA COPD PLAN: diet as tolerated continue PPI on Eliquis on Lasix on PO antibiotics Flagyl & Vantin on Solumedrol monitor electrolytes trend LFT ID eval Seen and discussed with Dr. Cavazos.
--- NOTE | 2016-10-17 11:13 | CP.PCM.PN ---
Subjective - Date & Time of Evaluation Date of Evaluation: 10/17/16 Time of Evaluation: 10:20 - Subjective Subjective: Comfortable in bed, no fevers overnight. Objective - Vital Signs/Intake and Output Vital Signs (last 24 hours): Temp Pulse Resp BP Pulse Ox 97.4 F L 75 20 119/66 95 10/17/16 07:30 10/17/16 07:59 10/17/16 07:30 10/17/16 07:30 10/17/16 07:30 Intake and Output: 10/17/16 10/17/16 06:59 18:59 Intake Total 120 Output Total 1 Balance 119 - Medications Medications: Current Medications Alprazolam (Xanax) 0.25 mg PO Q6 PRN PRN Reason: Anxiety Stop: 10/19/16 12:01 Last Admin: 10/16/16 19:11 Dose: 0.25 mg Apixaban (Eliquis) 2.5 mg PO BID [facility] PRN Reason: Protocol Last Admin: 10/16/16 18:40 Dose: 2.5 mg Arformoterol Tartrate (Brovana) 15 mcg IH [id number] [facility] Last Admin: 10/17/16 07:55 Dose: 15 mcg Atenolol (Tenormin) 25 mg PO BID [facility] Last Admin: 10/16/16 18:40 Dose: 25 mg Budesonide (Pulmicort Respules) 0.5 mg IH [id number] [facility] Last Admin: 10/17/16 07:55 Dose: 0.5 mg Cefpodoxime Proxetil (Vantin) 200 mg PO Q12 [facility] PRN Reason: Protocol Stop: 10/22/16 22:01 Last Admin: 10/16/16 21:56 Dose: 200 mg Furosemide (Lasix) 20 mg IVP Q8 [facility] Last Admin: 10/17/16 05:27 Dose: 20 mg Levalbuterol HCl (Xopenex) 0.63 mg IH [id number] PRN PRN Reason: Shortness of Breath Last Admin: 10/16/16 18:57 Dose: 0.63 mg Methylprednisolone (Solu-Medrol) 40 mg IV Q12 [facility] Last Admin: 10/16/16 21:49 Dose: 40 mg Metronidazole (Flagyl) 500 mg PO Q8 [facility] PRN Reason: Protocol Stop: 10/25/16 14:01 Last Admin: 10/17/16 05:29 Dose: 500 mg Pantoprazole Sodium (Protonix Ec Tab) 40 mg PO 0600 [facility] Last Admin: 10/17/16 05:29 Dose: 40 mg Potassium Chloride (K-Dur 20 Meq Er Tab) 20 meq PO BRK [facility] Last Admin: 10/16/16 08:13 Dose: 20 meq Verapamil HCl (Calan Tab) 80 mg PO TID [facility] Last Admin: 10/16/16 18:39 Dose: 80 mg - Labs Labs: 10/14/16 08:01 10/15/16 07:41 PT 14.7 Seconds (9.9-11.8) H 10/09/16 11:20 INR 1.36 (0.93-1.08) H 10/09/16 11:20 APTT 24.7 Seconds (23.7-30.8) 10/09/16 11:20 - Constitutional Appears: Non-toxic, No Acute Distress - Head Exam Head Exam: NORMAL INSPECTION - Neck Exam Neck Exam: absent: Meningismus - Respiratory Exam Respiratory Exam: Decreased Breath Sounds - Cardiovascular Exam Cardiovascular Exam: +S1, +S2 - GI/Abdominal Exam GI & Abdominal Exam: Soft. absent: Tenderness Assessment and Plan - Assessment and Plan (Free Text) Plan: Assessment Acute diverticulitis and C. diff. colitis history of C.diff. colitis history of E. faecalis bacteremia probably urine as the source HTN dyslipidemia S/P cerebrovascular accident chronic atrial fibrillation COPD CHF Plan continue Flagyl and Vantin and add PO Vancomycin - should have at least 14 days of PO Vancomycin and should complete 5-7 days of PO Vantin and Flagyl Will continue to follow clinically
--- NOTE | 2016-10-17 11:46 | CP.PCM.PN ---
Subjective - Date & Time of Evaluation Date of Evaluation: 10/17/16 Time of Evaluation: 08:00 - Subjective Subjective: Patient lying comfortably in bed without any chest pain, sob, palpitations. Objective - Vital Signs/Intake and Output Vital Signs (last 24 hours): Temp Pulse Resp BP Pulse Ox 97.4 F L 88 20 115/86 95 10/17/16 07:30 10/17/16 10:48 10/17/16 07:30 10/17/16 10:48 10/17/16 07:30 Intake and Output: 10/17/16 10/17/16 06:59 18:59 Intake Total 120 Output Total 1 Balance 119 - Medications Medications: Current Medications Alprazolam (Xanax) 0.25 mg PO Q6 PRN PRN Reason: Anxiety Stop: 10/19/16 12:01 Last Admin: 10/16/16 19:11 Dose: 0.25 mg Apixaban (Eliquis) 2.5 mg PO BID [facility] PRN Reason: Protocol Last Admin: 10/17/16 10:48 Dose: 2.5 mg Arformoterol Tartrate (Brovana) 15 mcg I[facility] [id number] [facility] Last Admin: 10/17/16 07:55 Dose: 15 mcg Atenolol (Tenormin) 25 mg PO BID [facility] Last Admin: 10/17/16 10:48 Dose: 25 mg Budesonide (Pulmicort Respules) 0.5 mg IH [id number] [facility] Last Admin: 10/17/16 07:55 Dose: 0.5 mg Cefpodoxime Proxetil (Vantin) 200 mg PO Q12 [facility] PRN Reason: Protocol Stop: 10/22/16 22:01 Last Admin: 10/17/16 10:47 Dose: 200 mg Furosemide (Lasix) 20 mg IVP Q8 [facility] Last Admin: 10/17/16 05:27 Dose: 20 mg Levalbuterol HCl (Xopenex) 0.63 mg IH [id number] PRN PRN Reason: Shortness of Breath Last Admin: 10/16/16 18:57 Dose: 0.63 mg Methylprednisolone (Solu-Medrol) 40 mg IV Q12 [facility] Last Admin: 10/17/16 10:42 Dose: 40 mg Metronidazole (Flagyl) 500 mg PO Q8 [facility] PRN Reason: Protocol Stop: 10/25/16 14:01 Last Admin: 10/17/16 05:29 Dose: 500 mg Pantoprazole Sodium (Protonix Ec Tab) 40 mg PO 0600 [facility] Last Admin: 10/17/16 05:29 Dose: 40 mg Potassium Chloride (K-Dur 20 Meq Er Tab) 20 meq PO BRK [facility] Last Admin: 10/17/16 10:48 Dose: 20 meq Vancomycin HCl (Vancocin 25 Mg/Ml (Oral Use)) 125 mg PO QID [facility] PRN Reason: Protocol Stop: 10/27/16 14:01 Verapamil HCl (Calan Tab) 80 mg PO TID [facility] Last Admin: 10/17/16 10:48 Dose: 80 mg - Labs Labs: 10/14/16 08:01 10/15/16 07:41 PT 14.7 Seconds (9.9-11.8) H 10/09/16 11:20 INR 1.36 (0.93-1.08) H 10/09/16 11:20 APTT 24.7 Seconds (23.7-30.8) 10/09/16 11:20 - Constitutional Appears: Well - Head Exam Head Exam: NORMOCEPHALIC - Eye Exam Eye Exam: Normal appearance Pupil Exam: NORMAL ACCOMODATION - Neck Exam Neck Exam: Normal Inspection - Respiratory Exam Additional comments: No Significant Rales. - Cardiovascular Exam Cardiovascular Exam: Irregular Rhythm, +S1, +S2, Murmur Additional comments: Thomas Systolic Murmur. - GI/Abdominal Exam GI & Abdominal Exam: Normal Bowel Sounds Assessment and Plan (1) Congestive heart failure Status: Acute (2) Pseudomembranous colitis Status: Acute (3) Rapid atrial fibrillation Status: Acute (4) Sepsis Status: Acute - Assessment and Plan (Free Text) Plan: Contimue Lasix, Beta Karen, Verapamil.Eliqis, Antibiotics, Steroids.
--- NOTE | 2016-10-17 12:38 | CP.PCM.PN ---
Subjective - Date & Time of Evaluation Date of Evaluation: 10/17/16 Time of Evaluation: 12:00 - Subjective Subjective: This is an 85Y F with PMH chronic a.fib on Eliquis, CHF, CVA x 2, COPD, HTN, HLD , c. diff who came to the ED for SOB x 2 days. today off B PAP and feels better , decrease SOB Objective - Vital Signs/Intake and Output Vital Signs (last 24 hours): Temp Pulse Resp BP Pulse Ox 97.4 F L 88 20 115/86 95 10/17/16 07:30 10/17/16 10:48 10/17/16 07:30 10/17/16 10:48 10/17/16 07:30 Intake and Output: 10/17/16 10/17/16 06:59 18:59 Intake Total 120 Output Total 1 Balance 119 - Medications Medications: Current Medications Alprazolam (Xanax) 0.25 mg PO Q6 PRN PRN Reason: Anxiety Stop: 10/19/16 12:01 Last Admin: 10/16/16 19:11 Dose: 0.25 mg Apixaban (Eliquis) 2.5 mg PO BID [facility] PRN Reason: Protocol Last Admin: 10/17/16 10:48 Dose: 2.5 mg Arformoterol Tartrate (Brovana) 15 mcg IH [id number] [facility] Last Admin: 10/17/16 07:55 Dose: 15 mcg Atenolol (Tenormin) 25 mg PO BID [facility] Last Admin: 10/17/16 10:48 Dose: 25 mg Budesonide (Pulmicort Respules) 0.5 mg IH [id number] [facility] Last Admin: 10/17/16 07:55 Dose: 0.5 mg Cefpodoxime Proxetil (Vantin) 200 mg PO Q12 [facility] PRN Reason: Protocol Stop: 10/22/16 22:01 Last Admin: 10/17/16 10:47 Dose: 200 mg Furosemide (Lasix) 20 mg IVP Q8 [facility] Last Admin: 10/17/16 05:27 Dose: 20 mg Levalbuterol HCl (Xopenex) 0.63 mg [facility] [id number] PRN PRN Reason: Shortness of Breath Last Admin: 10/16/16 18:57 Dose: 0.63 mg Metronidazole (Flagyl) 500 mg PO Q8 [facility] PRN Reason: Protocol Stop: 10/25/16 14:01 Last Admin: 10/17/16 05:29 Dose: 500 mg Pantoprazole Sodium (Protonix Ec Tab) 40 mg PO 0600 [facility] Last Admin: 10/17/16 05:29 Dose: 40 mg Potassium Chloride (K-Dur 20 Meq Er Tab) 20 meq PO BRK [facility] Last Admin: 10/17/16 10:48 Dose: 20 meq Prednisone (Prednisone Tab) 20 mg PO DAILY [facility] Vancomycin HCl (Vancocin 25 Mg/Ml (Oral Use)) 125 mg PO QID [facility] PRN Reason: Protocol Stop: 10/27/16 14:01 Verapamil HCl (Calan Tab) 80 mg PO TID [facility] Last Admin: 10/17/16 10:48 Dose: 80 mg - Labs Labs: 10/14/16 08:01 10/15/16 07:41 PT 14.7 Seconds (9.9-11.8) H 10/09/16 11:20 INR 1.36 (0.93-1.08) H 10/09/16 11:20 APTT 24.7 Seconds (23.7-30.8) 10/09/16 11:20 - Constitutional Appears: No Acute Distress - Head Exam Head Exam: ATRAUMATIC, NORMAL INSPECTION, NORMOCEPHALIC - Respiratory Exam Respiratory Exam: Clear to Ausculation Bilateral, NORMAL BREATHING PATTERN - Cardiovascular Exam Cardiovascular Exam: REGULAR RHYTHM, +S1, +S2. absent: Murmur - GI/Abdominal Exam GI & Abdominal Exam: Soft, Normal Bowel Sounds. absent: Tenderness - Extremities Exam Extremities Exam: Full ROM, Normal Capillary Refill, Normal Inspection. absent : Joint Swelling, Pedal Edema - Neurological Exam Neurological Exam: Alert, Awake, CN II-XII Intact, Normal Gait, Oriented x3 - Psychiatric Exam Psychiatric exam: Flat Affect Assessment and Plan (1) Diverticulitis large intestine Status: Acute (2) Rapid atrial fibrillation Assessment & Plan: controle rate, on anticoagulation, and beta serenity Status: Acute (3) Anemia Assessment & Plan: follow H and H Status: Acute (4) Bilateral lower leg cellulitis Assessment & Plan: improve Status: Acute (5) Sleep apnea in adult Assessment & Plan: encourage C PAP use Status: Acute - Assessment and Plan (Free Text) Plan: physical therapy
[2016-10-17] MEDS: Vancomycin 25 MG/ML PO SCH ×2 (14:13→17:56)
--- NOTE | 2016-10-17 14:29 | CP.PCM.HP ---
History of Present Illness - History of Present Illness History of Present Illness: Pt with SOB and fall. She has been declining according to son. She was recently discharged from [facility]. No LUCIA/N/V/. Present on Admission - Present on Admission Any Indicators Present on Admission: No Review of Systems - Constitutional Constitutional: Frequent Falls. absent: Headache - EENT Eyes: absent: Diplopia, Discharge, Loss of Peripheral Vision, Sees Flashes, Other Visual Disturbances Ears: absent: Decreased Hearing Nose/Mouth/Throat: absent: Nasal Discharge, Nose Pain, Sinus Pain - Breasts Breasts: absent: Skin Changes - Cardiovascular Cardiovascular: absent: Acrocyanosis, Irregular Heart Rhythm, Pain Radiating to Arm/Neck/Jaw, Leg Edema, Paroxysmal Nocturnal Dyspnea, Rapid Heart Rate - Respiratory Respiratory: absent: Hemoptysis, Pain on Inspiration, Chest Congestion, Change in Mucous Color - Gastrointestinal Gastrointestinal: absent: Change in Stool Character, Coffee Ground Emesis, Excessive Flatus, Heartburn, Hematemesis, Odynophagia - Menstruation Menstruation: absent: Amenorrhea - Musculoskeletal Musculoskeletal: Abnormal Gait, Arthralgias, Muscle Cramps, Muscle Weakness - Integumentary Integumentary: absent: Alopecia, Change in Pigmentation, Lesions, Photosensitivity, Skin Pain - Neurological Neurological: absent: Behavioral Changes, Headaches, Lack of Coordination, Radicular Pain - Psychiatric Psychiatric: absent: Depression, Hallucinations, Homicidal Ideation, Hopelessness - Endocrine Endocrine: absent: Fatigue, Polydipsia Past Patient History - Infectious Disease Hx of Infectious Diseases: None - Tetanus Immunizations Tetanus Immunization: Unknown - Past Medical History & Family History Past Medical History?: Yes - Past Social History Smoking Status: Former Smoker - CARDIAC Hx Congestive Heart Failure: Yes Hx Hypercholesterolemia: Yes Hx Hypertension: Yes - PULMONARY Hx Chronic Obstructive Pulmonary Disease (COPD): Yes - NEUROLOGICAL HX Cerebrovascular Accident: Yes - HEENT Hx HEENT Problems: Yes Hx Cataracts: Yes - RENAL Hx Chronic Kidney Disease: No - ENDOCRINE/METABOLIC Hx Diabetes Mellitus Type 2: Yes - HEMATOLOGICAL/ONCOLOGICAL Hx Blood Disorders: Yes Hx AIDS: No Hx Anemia: Yes - INTEGUMENTARY Hx Dermatological Problems: Yes Other/Comment: bright red buttocks/sacrum, ble redness swelling, thick hard toenails both feet , variscosities both feet - MUSCULOSKELETAL/RHEUMATOLOGICAL Hx Arthritis: Yes - GASTROINTESTINAL Hx Gastrointestinal Disorders: No - GENITOURINARY/GYNECOLOGICAL Hx Genitourinary Disorders: Yes Hx Urinary Tract Infection: Yes - PSYCHIATRIC Hx Psychophysiologic Disorder: Yes Hx Anxiety: Yes Hx Substance Use: No - SURGICAL HISTORY Hx Joint Replacement: Yes (right hip) - ANESTHESIA Hx Anesthesia: Yes Hx Anesthesia Reactions: No Hx Malignant Hyperthermia: No Meds Allergies/Adverse Reactions: Allergies Allergy/AdvReac Type Severity Reaction Status Date / Time No Known Allergies Allergy Verified 10/09/16 11:15 Physical Exam - Constitutional Appears: Non-toxic, Confused - Head Exam Head Exam: ATRAUMATIC, NORMAL INSPECTION, NORMOCEPHALIC - Eye Exam Eye Exam: EOMI, Normal appearance, PERRL - ENT Exam ENT Exam: Mucous Membranes Moist, Normal Exam - Neck Exam Neck exam: Positive for: Normal Inspection - Respiratory Exam Respiratory Exam: Clear to Auscultation Bilateral, NORMAL BREATHING PATTERN. absent: Prolonged Expiratory Phase, Rales, Rhonchi, Stridor - Cardiovascular Exam Cardiovascular Exam: REGULAR RHYTHM, RRR, +S1, +S2. absent: Rubs - GI/Abdominal Exam GI & Abdominal Exam: Normal Bowel Sounds. absent: Guarding, Hypoactive Bowel Sounds, Pulsatile Mass - Rectal Exam Rectal Exam: NORMAL INSPECTION - Extremities Exam Extremities exam: Positive for: normal inspection. Negative for: tenderness - Back Exam Back exam: NORMAL INSPECTION. absent: paraspinal tenderness, rash noted - Neurological Exam Neurological exam: Alert, CN II-XII Intact, Normal Gait, Reflexes Normal - Psychiatric Exam Psychiatric exam: Flat Affect Results - Vital Signs Recent Vital Signs: Last Vital Signs Temp 97.4 F L 10/17/16 07:30 Pulse 80 10/17/16 14:14 Resp 20 10/17/16 07:30 BP 122/66 10/17/16 14:17 Pulse Ox 95 10/17/16 07:30 - Labs Result Diagrams: 10/14/16 08:01 10/15/16 07:41 Assessment & Plan - Assessment and Plan (Free Text) Assessment: Acute CHF Pulm HTN COPD A fib Dyslipidemia Gait dysfuncion Anxiety Plan: Admit to hospital. IV lasix. IV steriod and Neb rx. PT. Will need NEFTALY. ? 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 Heart health diet. Spoke to son. - Date & Time Date: 10/10/16 Time: 08:20
[2016-10-18] MEDS: Cefpodoxime (Vantin) 200 mg Tab PO SCH ×3 (00:32→21:15)
[2016-10-18] MEDS: Nystatin 100,000 Units/gm Topical Pow(15 gm) TOP SCH ×3 (00:33→17:44)
[2016-10-18] MEDS: Vancomycin 25 MG/ML PO SCH ×4 (00:35→21:16)
[2016-10-18] MEDS: Pantoprazole 40 mg EC Tab PO SCH (06:19)
[2016-10-18 07:13] LABS: ALBUMIN 2.9 g/dL (3.0-4.8); ALT/SGPT 73 U/L (7-56); AST/SGOT 27 U/L (15-39); BLOOD UREA NITROGEN 52 mg/dL (7-21); CALCIUM 8.6 mg/dL (8.4-10.5); GFR AFRICAN-AMERICAN > 60; GFR NON-AFRICAN AMERICAN 52
[2016-10-18 07:19] LABS: HEMOGLOBIN 9.1 gm/dL (12.0-16.0); MEAN CELL VOLUME 85.4 fL (80.0-105.0); MEAN CORPUSCULAR HEMOGLOBIN 25.1 pg (25.0-35.0); MEAN CORPUSCULAR HGB CONC 29.4 g/dl (31.0-37.0); MEAN PLATELET VOLUME 10.7 fl (7.0-11.0); RBC 3.63 10^6/uL (3.5-6.1); RED CELL DISTRIBUTION WIDTH 21.4 % (11.5-14.5); WHITE BLOOD COUNT 10.7 10^3/ul (4.5-11.0)
[2016-10-18] MEDS: Arformoterol 15 mcg/2 ml Inh Sol IH SCH ×2 (07:52→20:24)
[2016-10-18] MEDS: Budesonide 0.5 mg/2 ml Inhal Susp UD IH SCH ×2 (07:52→20:24)
[2016-10-18] MEDS ORDERED: Potassium Chloride 20 mEq ER Tab PO ONE (09:57)
--- NOTE | 2016-10-18 09:57 | CP.PCM.PN ---
Subjective - Date & Time of Evaluation Date of Evaluation: 10/18/16 Time of Evaluation: 09:00 - Subjective Subjective: Feels ok , no issues during Night. Objective - Vital Signs/Intake and Output Vital Signs (last 24 hours): Temp Pulse Resp BP Pulse Ox 98 F 63 28 H 138/78 96 10/18/16 08:05 10/18/16 08:05 10/18/16 08:05 10/18/16 08:05 10/18/16 08:05 Intake and Output: 10/18/16 10/18/16 06:59 18:59 Intake Total 480 Balance 480 - Medications Medications: Current Medications Alprazolam (Xanax) 0.25 mg PO Q6 PRN PRN Reason: Anxiety Stop: 10/19/16 12:01 Last Admin: 10/18/16 06:20 Dose: 0.25 mg Apixaban (Eliquis) 2.5 mg PO BID [facility] PRN Reason: Protocol Last Admin: 10/17/16 17:56 Dose: 2.5 mg Arformoterol Tartrate (Brovana) 15 mcg IH [id number] [facility] Last Admin: 10/18/16 07:52 Dose: 15 mcg Atenolol (Tenormin) 25 mg PO BID [facility] Last Admin: 10/17/16 17:56 Dose: 25 mg Budesonide (Pulmicort Respules) 0.5 mg IH [id number] [facility] Last Admin: 10/18/16 07:52 Dose: 0.5 mg Cefpodoxime Proxetil (Vantin) 200 mg PO Q12 [facility] PRN Reason: Protocol Stop: 10/22/16 22:01 Last Admin: 10/18/16 00:32 Dose: 200 mg Furosemide (Lasix) 20 mg IVP Q8 [facility] Last Admin: 10/18/16 06:43 Dose: 20 mg Levalbuterol HCl (Xopenex) 0.63 mg IH [id number] PRN PRN Reason: Shortness of Breath Last Admin: 10/16/16 18:57 Dose: 0.63 mg Metronidazole (Flagyl) 500 mg PO Q8 [facility] PRN Reason: Protocol Stop: 10/25/16 14:01 Last Admin: 10/18/16 06:19 Dose: 500 mg Nystatin (Nystop Topical Powder) 1 gm TOP BID [facility] Last Admin: 10/18/16 00:33 Dose: 1 applic Pantoprazole Sodium (Protonix Ec Tab) 40 mg PO 0600 [facility] Last Admin: 10/18/16 06:19 Dose: 40 mg Potassium Chloride (K-Dur 20 Meq Er Tab) 20 meq PO BRK [facility] Last Admin: 10/17/16 10:48 Dose: 20 meq Prednisone (Prednisone Tab) 20 mg PO DAILY [facility] Vancomycin HCl (Vancocin 25 Mg/Ml (Oral Use)) 125 mg PO QID [facility] PRN Reason: Protocol Stop: 10/27/16 14:01 Last Admin: 10/18/16 00:35 Dose: 125 mg Verapamil HCl (Calan Tab) 80 mg PO TID [facility] Last Admin: 10/17/16 17:55 Dose: 80 mg - Labs Labs: 10/18/16 06:45 10/18/16 06:45 PT 14.7 Seconds (9.9-11.8) H 10/09/16 11:20 INR 1.36 (0.93-1.08) H 10/09/16 11:20 APTT 24.7 Seconds (23.7-30.8) 10/09/16 11:20 - Constitutional Appears: Non-toxic - Head Exam Head Exam: ATRAUMATIC - Eye Exam Eye Exam: Normal appearance - ENT Exam ENT Exam: Mucous Membranes Moist - Neck Exam Neck Exam: Full ROM - Respiratory Exam Respiratory Exam: Clear to Ausculation Bilateral - Cardiovascular Exam Cardiovascular Exam: Irregular Rhythm - Extremities Exam Extremities Exam: Pedal Edema Assessment and Plan - Assessment and Plan (Free Text) Assessment: ch a fib MR TR COPD CHF secondary to systolic dysfx and valvular hear diz Hx of CVA HTN Plan: Continue Eliquis 2.5 po BId Atenolo to 25 mg po BID continue Verapamil Change lasix to po Xopenox rather Duio-neublizer to prevent A Fib with RVR.
[2016-10-18] MEDS: Potassium Chloride 20 mEq ER Tab PO SCH (10:11)
--- NOTE | 2016-10-18 10:18 | CP.PCM.PN ---
Subjective - Date & Time of Evaluation Date of Evaluation: 10/18/16 Time of Evaluation: 07:50 - Subjective Subjective: S&E at bedside, chart reviewed. On BIPAP from last night, no acute overnight events. Reported to have 1 pasty BM last night. Good appetite. Patient denies SOB, CP, NV, or abdominal pain. Objective - Vital Signs/Intake and Output Vital Signs (last 24 hours): Temp Pulse Resp BP Pulse Ox 98 F 63 28 H 138/78 96 10/18/16 08:05 10/18/16 08:05 10/18/16 08:05 10/18/16 08:05 10/18/16 08:05 Intake and Output: 10/18/16 10/18/16 06:59 18:59 Intake Total 480 Balance 480 - Medications Medications: Current Medications Alprazolam (Xanax) 0.25 mg PO Q6 PRN PRN Reason: Anxiety Stop: 10/19/16 12:01 Last Admin: 10/18/16 06:20 Dose: 0.25 mg Arformoterol Tartrate (Brovana) 15 mcg IH [id number] [facility] Last Admin: 10/18/16 07:52 Dose: 15 mcg Atenolol (Tenormin) 25 mg PO BID [facility] Last Admin: 10/17/16 17:56 Dose: 25 mg Budesonide (Pulmicort Respules) 0.5 mg IH [id number] [facility] Last Admin: 10/18/16 07:52 Dose: 0.5 mg Cefpodoxime Proxetil (Vantin) 200 mg PO Q12 [facility] PRN Reason: Protocol Stop: 10/22/16 22:01 Last Admin: 10/18/16 00:32 Dose: 200 mg Furosemide (Lasix) 40 mg PO 0800,1400 [facility] Levalbuterol HCl (Xopenex) 0.63 mg IH [id number] PRN PRN Reason: Shortness of Breath Last Admin: 10/16/16 18:57 Dose: 0.63 mg Metronidazole (Flagyl) 500 mg PO Q8 [facility] PRN Reason: Protocol Stop: 10/25/16 14:01 Last Admin: 10/18/16 06:19 Dose: 500 mg Nystatin (Nystop Topical Powder) 1 gm TOP BID [facility] Last Admin: 10/18/16 00:33 Dose: 1 applic Pantoprazole Sodium (Protonix Ec Tab) 40 mg PO 0600 [facility] Last Admin: 10/18/16 06:19 Dose: 40 mg Potassium Chloride (K-Dur 20 Meq Er Tab) 20 meq PO BRK [facility] Last Admin: 10/17/16 10:48 Dose: 20 meq Prednisone (Prednisone Tab) 20 mg PO DAILY [facility] Vancomycin HCl (Vancocin 25 Mg/Ml (Oral Use)) 125 mg PO QID [facility] PRN Reason: Protocol Stop: 10/27/16 14:01 Last Admin: 10/18/16 00:35 Dose: 125 mg Verapamil HCl (Calan Tab) 80 mg PO TID [facility] Last Admin: 10/17/16 17:55 Dose: 80 mg - Labs Labs: 10/18/16 06:45 10/18/16 06:45 PT 14.7 Seconds (9.9-11.8) H 10/09/16 11:20 INR 1.36 (0.93-1.08) H 10/09/16 11:20 APTT 24.7 Seconds (23.7-30.8) 10/09/16 11:20 - Constitutional Appears: No Acute Distress - Head Exam Head Exam: NORMAL INSPECTION - Eye Exam Eye Exam: Normal appearance. absent: Scleral icterus - ENT Exam ENT Exam: Mucous Membranes Moist - Neck Exam Neck Exam: Normal Inspection - Respiratory Exam Respiratory Exam: Decreased Breath Sounds, NORMAL BREATHING PATTERN. absent: Wheezes, Respiratory Distress - Cardiovascular Exam Cardiovascular Exam: +S1, +S2 - GI/Abdominal Exam GI & Abdominal Exam: Soft, Normal Bowel Sounds. absent: Guarding, Tenderness, Organomegaly, Rebound - Neurological Exam Neurological Exam: Awake, Oriented x3 - Skin Skin Exam: Dry, Warm Assessment and Plan - Assessment and Plan (Free Text) Assessment: ASSESSMENT: CDiff positive Antigen/Toxin, resolved diarrhea Acute Diverticulitis, pt, no abdominal pain s/p Leukocytosis CHF Lower Ext. Cellutitis Elevated LFT/Hyperbilirubinemia, abdominal US no GB stone, CBD 3mm, maybe secondary to hepatic congestion, improving. Chronic Atrial Fibrillation CVA COPD PLAN: diet as tolerated continue PPI on Eliquis on Lasix on PO antibiotics Flagyl & Vantin on Solumedrol monitor electrolytes trend LFT ID eval Seen and discussed with Dr. Cavazos.
--- NOTE | 2016-10-18 12:16 | CP.PCM.PN ---
Subjective - Date & Time of Evaluation Date of Evaluation: 10/18/16 Time of Evaluation: 10:45 - Subjective Subjective: No fevers overnight, no abdominal pain, no diarrhea currently. Objective - Vital Signs/Intake and Output Vital Signs (last 24 hours): Temp Pulse Resp BP Pulse Ox 98 F 63 28 H 138/78 96 10/18/16 08:05 10/18/16 08:05 10/18/16 08:05 10/18/16 08:05 10/18/16 08:05 Intake and Output: 10/18/16 10/18/16 06:59 18:59 Intake Total 480 Balance 480 - Medications Medications: Current Medications Alprazolam (Xanax) 0.25 mg PO Q6 PRN PRN Reason: Anxiety Stop: 10/19/16 12:01 Last Admin: 10/18/16 06:20 Dose: 0.25 mg Apixaban (Eliquis) 2.5 mg PO BID [facility] PRN Reason: Protocol Last Admin: 10/17/16 17:56 Dose: 2.5 mg Arformoterol Tartrate (Brovana) 15 mcg IH [id number] [facility] Last Admin: 10/18/16 07:52 Dose: 15 mcg Atenolol (Tenormin) 25 mg PO BID [facility] Last Admin: 10/17/16 17:56 Dose: 25 mg Budesonide (Pulmicort Respules) 0.5 mg IH [id number] [facility] Last Admin: 10/18/16 07:52 Dose: 0.5 mg Cefpodoxime Proxetil (Vantin) 200 mg PO Q12 [facility] PRN Reason: Protocol Stop: 10/22/16 22:01 Last Admin: 10/18/16 00:32 Dose: 200 mg Furosemide (Lasix) 20 mg IVP Q8 [facility] Last Admin: 10/18/16 06:43 Dose: 20 mg Levalbuterol HCl (Xopenex) 0.63 mg IH [id number] PRN PRN Reason: Shortness of Breath Last Admin: 10/16/16 18:57 Dose: 0.63 mg Metronidazole (Flagyl) 500 mg PO Q8 [facility] PRN Reason: Protocol Stop: 10/25/16 14:01 Last Admin: 10/18/16 06:19 Dose: 500 mg Nystatin (Nystop Topical Powder) 1 gm TOP BID [facility] Last Admin: 10/18/16 00:33 Dose: 1 applic Pantoprazole Sodium (Protonix Ec Tab) 40 mg PO 0600 [facility] Last Admin: 10/18/16 06:19 Dose: 40 mg Potassium Chloride (K-Dur 20 Meq Er Tab) 20 meq PO BRK [facility] Last Admin: 10/17/16 10:48 Dose: 20 meq Prednisone (Prednisone Tab) 20 mg PO DAILY [facility] Vancomycin HCl (Vancocin 25 Mg/Ml (Oral Use)) 125 mg PO QID [facility] PRN Reason: Protocol Stop: 10/27/16 14:01 Last Admin: 10/18/16 00:35 Dose: 125 mg Verapamil HCl (Calan Tab) 80 mg PO TID [facility] Last Admin: 10/17/16 17:55 Dose: 80 mg - Labs Labs: 10/18/16 06:45 10/18/16 06:45 PT 14.7 Seconds (9.9-11.8) H 10/09/16 11:20 INR 1.36 (0.93-1.08) H 10/09/16 11:20 APTT 24.7 Seconds (23.7-30.8) 10/09/16 11:20 - Constitutional Appears: Non-toxic, No Acute Distress - Head Exam Head Exam: NORMAL INSPECTION - Neck Exam Neck Exam: absent: Meningismus - Respiratory Exam Respiratory Exam: Decreased Breath Sounds - Cardiovascular Exam Cardiovascular Exam: +S1, +S2 - GI/Abdominal Exam GI & Abdominal Exam: Soft. absent: Tenderness Assessment and Plan - Assessment and Plan (Free Text) Plan: Assessment Acute diverticulitis and C. diff. colitis history of C.diff. colitis history of E. faecalis bacteremia probably urine as the source HTN dyslipidemia S/P cerebrovascular accident chronic atrial fibrillation COPD CHF Plan continue Flagyl and Vantin (day 7) and PO Vancomycin (day 2) - should have at least 14 days of PO Vancomycin and should complete 5-7 days of PO Vantin and Flagyl Will continue to follow clinically
--- NOTE | 2016-10-18 18:55 | CP.PCM.PN ---
Subjective - Date & Time of Evaluation Date of Evaluation: 10/18/16 Time of Evaluation: 08:30 - Subjective Subjective: Pt with no pain. She does have episodes of anxiety. No SOB. Eating ok. Objective - Vital Signs/Intake and Output Vital Signs (last 24 hours): Temp Pulse Resp BP Pulse Ox 98.2 F 63 24 134/76 95 10/18/16 16:00 10/18/16 16:00 10/18/16 16:00 10/18/16 16:00 10/18/16 16:00 Intake and Output: 10/18/16 10/18/16 06:59 18:59 Intake Total 480 500 Output Total 2 Balance 480 498 - Medications Medications: Current Medications Acetaminophen (Tylenol 325mg Tab) 650 mg PO Q4H PRN PRN Reason: Pain, Mild (1-3) Alprazolam (Xanax) 0.25 mg PO Q6 PRN PRN Reason: Anxiety Stop: 10/19/16 12:01 Last Admin: 10/18/16 14:58 Dose: 0.25 mg Apixaban (Eliquis) 2.5 mg PO BID [facility] PRN Reason: Protocol Arformoterol Tartrate (Brovana) 15 mcg IH [id number] [facility] Last Admin: 10/18/16 07:52 Dose: 15 mcg Atenolol (Tenormin) 25 mg PO BID [facility] Last Admin: 10/18/16 17:44 Dose: 25 mg Budesonide (Pulmicort Respules) 0.5 mg IH [id number] [facility] Last Admin: 10/18/16 07:52 Dose: 0.5 mg Cefpodoxime Proxetil (Vantin) 200 mg PO Q12 [facility] PRN Reason: Protocol Stop: 10/22/16 22:01 Last Admin: 10/18/16 10:12 Dose: 200 mg Furosemide (Lasix) 40 mg PO 0800,1400 [facility] Last Admin: 10/18/16 14:23 Dose: 40 mg Levalbuterol HCl (Xopenex) 0.63 mg IH [id number] PRN PRN Reason: Shortness of Breath Last Admin: 10/16/16 18:57 Dose: 0.63 mg Metronidazole (Flagyl) 500 mg PO Q8 [facility] PRN Reason: Protocol Stop: 10/25/16 14:01 Last Admin: 10/18/16 14:16 Dose: 500 mg Nystatin (Nystop Topical Powder) 1 gm TOP BID [facility] Last Admin: 10/18/16 17:44 Dose: 1 applic Oxycodone/Acetaminophen (Percocet 5/325 Mg Tab) 1 tab PO Q4H PRN PRN Reason: Pain, moderate (4-7) Stop: 10/21/16 18:51 Pantoprazole Sodium (Protonix Ec Tab) 40 mg PO 0600 [facility] Last Admin: 10/18/16 06:19 Dose: 40 mg Potassium Chloride (K-Dur 20 Meq Er Tab) 20 meq PO BRK [facility] Last Admin: 10/18/16 10:11 Dose: 20 meq Prednisone (Prednisone Tab) 20 mg PO DAILY [facility] Last Admin: 10/18/16 10:11 Dose: 20 mg Vancomycin HCl (Vancocin 25 Mg/Ml (Oral Use)) 125 mg PO QID [facility] PRN Reason: Protocol Stop: 10/27/16 14:01 Last Admin: 10/18/16 14:24 Dose: 125 mg Verapamil HCl (Calan Tab) 80 mg PO TID [facility] Last Admin: 10/18/16 17:44 Dose: 80 mg - Labs Labs: 10/18/16 06:45 10/18/16 06:45 PT 14.7 Seconds (9.9-11.8) H 10/09/16 11:20 INR 1.36 (0.93-1.08) H 10/09/16 11:20 APTT 24.7 Seconds (23.7-30.8) 10/09/16 11:20 - Head Exam Head Exam: NORMAL INSPECTION, NORMOCEPHALIC - Eye Exam Eye Exam: EOMI, Normal appearance, PERRL - ENT Exam ENT Exam: Mucous Membranes Moist, Normal Exam - Neck Exam Neck Exam: Normal Inspection - Respiratory Exam Respiratory Exam: Clear to Ausculation Bilateral, NORMAL BREATHING PATTERN - GI/Abdominal Exam GI & Abdominal Exam: Soft, Normal Bowel Sounds - Rectal Exam Rectal Exam: NORMAL INSPECTION - Neurological Exam Neurological Exam: Alert, Awake, CN II-XII Intact Assessment and Plan - Assessment and Plan (Free Text) Assessment: Acute CHF- secondary diastolic dysfunction Pulm HTN COPD A fib Dyslipidemia Plan: Pt on Albuterol. On Verpamil . On Eliquis for A fib. Will need NEFTALY. PT. IV Solumderol and Neb.
--- NOTE | 2016-10-18 20:10 | CP.PCM.PN ---
Subjective - Date & Time of Evaluation Date of Evaluation: 10/18/16 Time of Evaluation: 16:00 - Subjective Subjective: This is an 85Y F with PMH chronic a.fib on Eliquis, CHF, CVA x 2, COPD, HTN, HLD , c. diff who came to the ED for SOB x 2 days. today off B PAP and feels better , decrease SOB, little sleepy today Objective - Vital Signs/Intake and Output Vital Signs (last 24 hours): Temp Pulse Resp BP Pulse Ox 98.2 F 63 24 134/76 95 10/18/16 16:00 10/18/16 16:00 10/18/16 16:00 10/18/16 16:00 10/18/16 16:00 Intake and Output: 10/18/16 10/19/16 18:59 06:59 Intake Total 500 Output Total 2 Balance 498 - Medications Medications: Current Medications Acetaminophen (Tylenol 325mg Tab) 650 mg PO Q4H PRN PRN Reason: Pain, Mild (1-3) Last Admin: 10/18/16 18:57 Dose: 650 mg Alprazolam (Xanax) 0.25 mg PO Q6 PRN PRN Reason: Anxiety Stop: 10/19/16 12:01 Last Admin: 10/18/16 14:58 Dose: 0.25 mg Apixaban (Eliquis) 2.5 mg PO BID [facility] PRN Reason: Protocol Last Admin: 10/18/16 18:57 Dose: 2.5 mg Arformoterol Tartrate (Brovana) 15 mcg IH [id number] [facility] Last Admin: 10/18/16 07:52 Dose: 15 mcg Atenolol (Tenormin) 25 mg PO BID [facility] Last Admin: 10/18/16 17:44 Dose: 25 mg Budesonide (Pulmicort Respules) 0.5 mg IH [id number] [facility] Last Admin: 10/18/16 07:52 Dose: 0.5 mg Cefpodoxime Proxetil (Vantin) 200 mg PO Q12 [facility] PRN Reason: Protocol Stop: 10/22/16 22:01 Last Admin: 10/18/16 10:12 Dose: 200 mg Furosemide (Lasix) 40 mg PO 0800,1400 [facility] Last Admin: 10/18/16 14:23 Dose: 40 mg Levalbuterol HCl (Xopenex) 0.63 mg IH [id number] PRN PRN Reason: Shortness of Breath Last Admin: 10/16/16 18:57 Dose: 0.63 mg Metronidazole (Flagyl) 500 mg PO Q8 [facility] PRN Reason: Protocol Stop: 10/25/16 14:01 Last Admin: 10/18/16 14:16 Dose: 500 mg Nystatin (Nystop Topical Powder) 1 gm TOP BID [facility] Last Admin: 10/18/16 17:44 Dose: 1 applic Oxycodone/Acetaminophen (Percocet 5/325 Mg Tab) 1 tab PO Q4H PRN PRN Reason: Pain, moderate (4-7) Stop: 10/21/16 18:51 Pantoprazole Sodium (Protonix Ec Tab) 40 mg PO 0600 [facility] Last Admin: 10/18/16 06:19 Dose: 40 mg Potassium Chloride (K-Dur 20 Meq Er Tab) 20 meq PO BRK [facility] Last Admin: 10/18/16 10:11 Dose: 20 meq Prednisone (Prednisone Tab) 20 mg PO DAILY [facility] Last Admin: 10/18/16 10:11 Dose: 20 mg Vancomycin HCl (Vancocin 25 Mg/Ml (Oral Use)) 125 mg PO QID [facility] PRN Reason: Protocol Stop: 10/27/16 14:01 Last Admin: 10/18/16 14:24 Dose: 125 mg Verapamil HCl (Calan Tab) 80 mg PO TID [facility] Last Admin: 10/18/16 17:44 Dose: 80 mg - Labs Labs: 10/18/16 06:45 10/18/16 06:45 PT 14.7 Seconds (9.9-11.8) H 10/09/16 11:20 INR 1.36 (0.93-1.08) H 10/09/16 11:20 APTT 24.7 Seconds (23.7-30.8) 10/09/16 11:20 - Constitutional Appears: No Acute Distress - Head Exam Head Exam: ATRAUMATIC, NORMAL INSPECTION, NORMOCEPHALIC - ENT Exam ENT Exam: Mucous Membranes Moist, Normal Exam - Respiratory Exam Respiratory Exam: Clear to Ausculation Bilateral, Rhonchi, NORMAL BREATHING PATTERN - Cardiovascular Exam Cardiovascular Exam: Irregular Rhythm, REGULAR RHYTHM, +S1, +S2. absent: Murmur - Extremities Exam Extremities Exam: Full ROM, Normal Capillary Refill, Normal Inspection. absent : Joint Swelling, Pedal Edema - Neurological Exam Neurological Exam: Alert, Awake, CN II-XII Intact, Normal Gait, Oriented x3 - Psychiatric Exam Psychiatric exam: Flat Affect Assessment and Plan (1) Diverticulitis large intestine Assessment & Plan: improve and no diarrhea Status: Acute (2) Rapid atrial fibrillation Assessment & Plan: improve, on elaquis and betablocker Status: Acute (3) Anemia Assessment & Plan: stable Status: Acute (4) Bilateral lower leg cellulitis Assessment & Plan: improve Status: Acute (5) Sleep apnea in adult Assessment & Plan: sleep apnea precaution, B PAP while sleeping Status: Acute
[2016-10-19] MEDS: Pantoprazole 40 mg EC Tab PO SCH (06:22)
[2016-10-19] MEDS: Arformoterol 15 mcg/2 ml Inh Sol IH SCH ×2 (07:18→20:20)
[2016-10-19] MEDS: Budesonide 0.5 mg/2 ml Inhal Susp UD IH SCH ×2 (07:18→20:20)
[2016-10-19] MEDS: Potassium Chloride 20 mEq ER Tab PO SCH (08:11)
[2016-10-19] MEDS ORDERED: Potassium Chloride 20 mEq ER Tab PO ONE (09:34)
--- NOTE | 2016-10-19 09:34 | CP.PCM.PN ---
Subjective - Date & Time of Evaluation Date of Evaluation: 10/19/16 Time of Evaluation: 08:15 - Subjective Subjective: Lying flat,. not in distress no New complains. Objective - Vital Signs/Intake and Output Vital Signs (last 24 hours): Temp Pulse Resp BP Pulse Ox 98.4 F 78 18 121/82 98 10/19/16 07:30 10/19/16 07:30 10/19/16 07:30 10/19/16 08:08 10/19/16 07:30 Intake and Output: 10/19/16 10/19/16 06:59 18:59 Intake Total 660 Balance 660 - Medications Medications: Current Medications Acetaminophen (Tylenol 325mg Tab) 650 mg PO Q4H PRN PRN Reason: Pain, Mild (1-3) Last Admin: 10/18/16 18:57 Dose: 650 mg Alprazolam (Xanax) 0.25 mg PO Q6 PRN PRN Reason: Anxiety Stop: 10/19/16 12:01 Last Admin: 10/19/16 03:29 Dose: 0.25 mg Apixaban (Eliquis) 2.5 mg PO BID [facility] PRN Reason: Protocol Last Admin: 10/18/16 18:57 Dose: 2.5 mg Arformoterol Tartrate (Brovana) 15 mcg IH [id number] [facility] Last Admin: 10/19/16 07:18 Dose: 15 mcg Atenolol (Tenormin) 25 mg PO BID [facility] Last Admin: 10/18/16 17:44 Dose: 25 mg Budesonide (Pulmicort Respules) 0.5 mg IH [id number] [facility] Last Admin: 10/19/16 07:18 Dose: 0.5 mg Cefpodoxime Proxetil (Vantin) 200 mg PO Q12 [facility] PRN Reason: Protocol Stop: 10/22/16 22:01 Last Admin: 10/18/16 21:15 Dose: 200 mg Furosemide (Lasix) 40 mg PO 0800,1400 [facility] Last Admin: 10/19/16 08:08 Dose: 40 mg Levalbuterol HCl (Xopenex) 0.63 mg IH [id number] PRN PRN Reason: Shortness of Breath Last Admin: 10/16/16 18:57 Dose: 0.63 mg Metronidazole (Flagyl) 500 mg PO Q8 [facility] PRN Reason: Protocol Stop: 10/25/16 14:01 Last Admin: 10/19/16 06:22 Dose: 500 mg Nystatin (Nystop Topical Powder) 1 gm TOP BID [facility] Last Admin: 10/18/16 17:44 Dose: 1 applic Oxycodone/Acetaminophen (Percocet 5/325 Mg Tab) 1 tab PO Q4H PRN PRN Reason: Pain, moderate (4-7) Stop: 10/21/16 18:51 Pantoprazole Sodium (Protonix Ec Tab) 40 mg PO 0600 [facility] Last Admin: 10/19/16 06:22 Dose: 40 mg Potassium Chloride (K-Dur 20 Meq Er Tab) 20 meq PO BRK [facility] Last Admin: 10/19/16 08:11 Dose: 20 meq Prednisone (Prednisone Tab) 10 mg PO DAILY [facility] Vancomycin HCl (Vancocin 25 Mg/Ml (Oral Use)) 125 mg PO QID [facility] PRN Reason: Protocol Stop: 10/27/16 14:01 Last Admin: 10/18/16 21:16 Dose: 125 mg Verapamil HCl (Calan Tab) 80 mg PO TID [facility] Last Admin: 10/18/16 17:44 Dose: 80 mg - Labs Labs: 10/18/16 06:45 10/18/16 06:45 PT 14.7 Seconds (9.9-11.8) H 10/09/16 11:20 INR 1.36 (0.93-1.08) H 10/09/16 11:20 APTT 24.7 Seconds (23.7-30.8) 10/09/16 11:20 - Constitutional Appears: Non-toxic - Head Exam Head Exam: ATRAUMATIC - Eye Exam Eye Exam: Normal appearance - ENT Exam ENT Exam: Mucous Membranes Moist - Respiratory Exam Respiratory Exam: Clear to Ausculation Bilateral - Cardiovascular Exam Cardiovascular Exam: Irregular Rhythm - GI/Abdominal Exam GI & Abdominal Exam: Soft Assessment and Plan - Assessment and Plan (Free Text) Assessment: Ch . Afib Hx of CVa COPD CHF secodary to systolic dys Fx MR TR Anemia Hypokalemia Plan: Supplement Lytes Antibiotics continue Verapamil Ciontinue Atenolo continue antocoag
[2016-10-19] MEDS: Nystatin 100,000 Units/gm Topical Pow(15 gm) TOP SCH (09:38)
[2016-10-19] MEDS: Vancomycin 25 MG/ML PO SCH ×4 (09:41→23:17)
--- NOTE | 2016-10-19 10:50 | CP.PCM.PN ---
<Dorothea De Jesus - Last Filed: 10/19/16 10:47> Subjective - Date & Time of Evaluation Date of Evaluation: 10/19/16 Time of Evaluation: 09:10 - Subjective Subjective: S&E at bedside, chart reviewed. Patient reported to be agitated last night, given Xanax. Calm this am and ate all of breakfast, even scraping apple sauce container. Reported to be incontinent of large amount of brown stool. No reports of bleeding. Denies SOB, CP, N/V or abdominal pain. Objective - Vital Signs/Intake and Output Vital Signs (last 24 hours): Temp Pulse Resp BP Pulse Ox 98.4 F 74 18 129/62 98 10/19/16 07:30 10/19/16 09:39 10/19/16 07:30 10/19/16 09:39 10/19/16 07:30 Intake and Output: 10/19/16 10/19/16 06:59 18:59 Intake Total 660 Balance 660 - Medications Medications: Current Medications Acetaminophen (Tylenol 325mg Tab) 650 mg PO Q4H PRN PRN Reason: Pain, Mild (1-3) Last Admin: 10/18/16 18:57 Dose: 650 mg Alprazolam (Xanax) 0.25 mg PO Q6 PRN PRN Reason: Anxiety Stop: 10/19/16 12:01 Last Admin: 10/19/16 03:29 Dose: 0.25 mg Apixaban (Eliquis) 2.5 mg PO BID [facility] PRN Reason: Protocol Last Admin: 10/19/16 09:37 Dose: 2.5 mg Arformoterol Tartrate (Brovana) 15 mcg IH [id number] [facility] Last Admin: 10/19/16 07:18 Dose: 15 mcg Atenolol (Tenormin) 25 mg PO BID [facility] Last Admin: 10/19/16 09:39 Dose: 25 mg Budesonide (Pulmicort Respules) 0.5 mg IH [id number] [facility] Last Admin: 10/19/16 07:18 Dose: 0.5 mg Cefpodoxime Proxetil (Vantin) 200 mg PO Q12 [facility] PRN Reason: Protocol Stop: 10/22/16 22:01 Last Admin: 10/18/16 21:15 Dose: 200 mg Furosemide (Lasix) 40 mg PO 0800,1400 [facility] Last Admin: 10/19/16 08:08 Dose: 40 mg Levalbuterol HCl (Xopenex) 0.63 mg IH [id number] PRN PRN Reason: Shortness of Breath Last Admin: 10/16/16 18:57 Dose: 0.63 mg Metronidazole (Flagyl) 500 mg PO Q8 [facility] PRN Reason: Protocol Stop: 10/25/16 14:01 Last Admin: 10/19/16 06:22 Dose: 500 mg Nystatin (Nystop Topical Powder) 1 gm TOP BID [facility] Last Admin: 10/19/16 09:38 Dose: 1 applic Oxycodone/Acetaminophen (Percocet 5/325 Mg Tab) 1 tab PO Q4H PRN PRN Reason: Pain, moderate (4-7) Stop: 10/21/16 18:51 Pantoprazole Sodium (Protonix Ec Tab) 40 mg PO 0600 [facility] Last Admin: 10/19/16 06:22 Dose: 40 mg Potassium Chloride (K-Dur 20 Meq Er Tab) 20 meq PO BRK [facility] Last Admin: 10/19/16 08:11 Dose: 20 meq Prednisone (Prednisone Tab) 10 mg PO DAILY [facility] Last Admin: 10/19/16 09:39 Dose: 10 mg Vancomycin HCl (Vancocin 25 Mg/Ml (Oral Use)) 125 mg PO QID [facility] PRN Reason: Protocol Stop: 10/27/16 14:01 Last Admin: 10/19/16 09:41 Dose: 125 mg Verapamil HCl (Calan Tab) 80 mg PO TID [facility] Last Admin: 10/19/16 09:34 Dose: 80 mg - Labs Labs: 10/18/16 06:45 10/18/16 06:45 PT 14.7 Seconds (9.9-11.8) H 10/09/16 11:20 INR 1.36 (0.93-1.08) H 10/09/16 11:20 APTT 24.7 Seconds (23.7-30.8) 10/09/16 11:20 - Constitutional Appears: No Acute Distress - Head Exam Head Exam: NORMOCEPHALIC - Eye Exam Eye Exam: Normal appearance. absent: Scleral icterus - ENT Exam ENT Exam: Mucous Membranes Moist - Neck Exam Neck Exam: Normal Inspection - Respiratory Exam Respiratory Exam: Decreased Breath Sounds, Rhonchi, NORMAL BREATHING PATTERN. absent: Wheezes, Respiratory Distress - Cardiovascular Exam Cardiovascular Exam: +S1, +S2 - GI/Abdominal Exam GI & Abdominal Exam: Soft, Normal Bowel Sounds. absent: Guarding, Tenderness, Organomegaly, Rebound - Extremities Exam Extremities Exam: absent: Calf Tenderness, Pedal Edema Additional comments: erythema improved - Neurological Exam Neurological Exam: Alert, Awake, Oriented x3 (confused at times) - Skin Skin Exam: Dry, Warm Assessment and Plan - Assessment and Plan (Free Text) Assessment: ASSESSMENT: CDiff positive Antigen/Toxin, resolved diarrhea Acute Diverticulitis, pt, no abdominal pain s/p Leukocytosis CHF Lower Ext. Cellutitis Elevated LFT/Hyperbilirubinemia, abdominal US no GB stone, CBD 3mm, maybe secondary to hepatic congestion, improving. Chronic Atrial Fibrillation CVA COPD PLAN: diet as tolerated continue PPI on Eliquis on Lasix on PO antibiotics Flagyl, Vanco, & Vantin on Prednisone, dose decreased monitor electrolytes trend LFT Seen and discussed with Dr. Cavazos. <Rohan Cavazos V - Last Filed: 10/19/16 23:58> Objective - Vital Signs/Intake and Output Vital Signs (last 24 hours): Temp Pulse Resp BP Pulse Ox 98 F 65 18 116/70 94 L 10/19/16 15:56 10/19/16 18:03 10/19/16 15:56 10/19/16 18:03 10/19/16 15:56 Intake and Output: 10/19/16 10/20/16 18:59 06:59 Intake Total 925 540 Balance 925 540 - Medications Medications: Current Medications Acetaminophen (Tylenol 325mg Tab) 650 mg PO Q4H PRN PRN Reason: Pain, Mild (1-3) Last Admin: 10/18/16 18:57 Dose: 650 mg Alprazolam (Xanax) 0.25 mg PO Q6H PRN; Protocol PRN Reason: Anxiety Stop: 10/26/16 18:16 Last Admin: 10/19/16 18:25 Dose: 0.25 mg Apixaban (Eliquis) 2.5 mg PO BID [facility] PRN Reason: Protocol Last Admin: 10/19/16 18:00 Dose: 2.5 mg Arformoterol Tartrate (Brovana) 15 mcg IH [id number] [facility] Last Admin: 10/19/16 20:20 Dose: 15 mcg Atenolol (Tenormin) 25 mg PO BID [facility] Last Admin: 10/19/16 18:03 Dose: 25 mg Budesonide (Pulmicort Respules) 0.5 mg IH [id number] [facility] Last Admin: 10/19/16 20:20 Dose: 0.5 mg Furosemide (Lasix) 40 mg PO 0800,1400 [facility] Last Admin: 10/19/16 14:45 Dose: 40 mg Levalbuterol HCl (Xopenex) 0.63 mg IH [id number] PRN PRN Reason: Shortness of Breath Last Admin: 10/16/16 18:57 Dose: 0.63 mg Nystatin (Nystop Topical Powder) 1 gm TOP BID [facility] Last Admin: 10/19/16 09:38 Dose: 1 applic Oxycodone/Acetaminophen (Percocet 5/325 Mg Tab) 1 tab PO Q4H PRN PRN Reason: Pain, moderate (4-7) Stop: 10/21/16 18:51 Last Admin: 10/19/16 22:19 Dose: 1 tab Pantoprazole Sodium (Protonix Ec Tab) 40 mg PO 0600 [facility] Last Admin: 10/19/16 06:22 Dose: 40 mg Petrolatum (Desitin Maximum Strength Topical 40% Oint) 0 gm TOP Q4H PRN PRN Reason: Rash Potassium Chloride (K-Dur 20 Meq Er Tab) 20 meq PO BRK [facility] Last Admin: 10/19/16 08:11 Dose: 20 meq Prednisone (Prednisone Tab) 10 mg PO DAILY [facility] Last Admin: 10/19/16 09:39 Dose: 10 mg Vancomycin HCl (Vancocin 25 Mg/Ml (Oral Use)) 125 mg PO QID [facility] PRN Reason: Protocol Stop: 10/27/16 14:01 Last Admin: 10/19/16 23:17 Dose: 125 mg Verapamil HCl (Calan Tab) 80 mg PO TID [facility] Last Admin: 10/19/16 18:03 Dose: 80 mg - Labs Labs: 10/18/16 06:45 10/18/16 06:45 PT 14.7 Seconds (9.9-11.8) H 10/09/16 11:20 INR 1.36 (0.93-1.08) H 10/09/16 11:20 APTT 24.7 Seconds (23.7-30.8) 10/09/16 11:20 Attending/Attestation - Attestation I have personally seen and examined this patient.: Yes I have fully participated in the care of the patient.: Yes I have reviewed all pertinent clinical information, including history, physical exam and plan: Yes Notes (Text): this
[2016-10-19] MEDS ORDERED: Zinc Oxide Topical 40% Oint (Desitin) TOP PRN (11:00)
--- NOTE | 2016-10-19 11:15 | CP.PCM.PN ---
Subjective - Date & Time of Evaluation Date of Evaluation: 10/19/16 Time of Evaluation: 10:00 - Subjective Subjective: Comfortable in bed, not in distress, eating well, afebrile, no abdominal pain. Objective - Vital Signs/Intake and Output Vital Signs (last 24 hours): Temp Pulse Resp BP Pulse Ox 98.4 F 78 18 144/83 98 10/19/16 07:30 10/19/16 07:30 10/19/16 07:30 10/19/16 07:30 10/19/16 07:30 Intake and Output: 10/19/16 10/19/16 06:59 18:59 Intake Total 660 Balance 660 - Medications Medications: Current Medications Acetaminophen (Tylenol 325mg Tab) 650 mg PO Q4H PRN PRN Reason: Pain, Mild (1-3) Last Admin: 10/18/16 18:57 Dose: 650 mg Alprazolam (Xanax) 0.25 mg PO Q6 PRN PRN Reason: Anxiety Stop: 10/19/16 12:01 Last Admin: 10/19/16 03:29 Dose: 0.25 mg Apixaban (Eliquis) 2.5 mg PO BID [facility] PRN Reason: Protocol Last Admin: 10/18/16 18:57 Dose: 2.5 mg Arformoterol Tartrate (Brovana) 15 mcg IH [id number] [facility] Last Admin: 10/19/16 07:18 Dose: 15 mcg Atenolol (Tenormin) 25 mg PO BID [facility] Last Admin: 10/18/16 17:44 Dose: 25 mg Budesonide (Pulmicort Respules) 0.5 mg IH [id number] [facility] Last Admin: 10/19/16 07:18 Dose: 0.5 mg Cefpodoxime Proxetil (Vantin) 200 mg PO Q12 [facility] PRN Reason: Protocol Stop: 10/22/16 22:01 Last Admin: 10/18/16 21:15 Dose: 200 mg Furosemide (Lasix) 40 mg PO 0800,1400 [facility] Last Admin: 10/18/16 14:23 Dose: 40 mg Levalbuterol HCl (Xopenex) 0.63 mg IH [id number] PRN PRN Reason: Shortness of Breath Last Admin: 10/16/16 18:57 Dose: 0.63 mg Metronidazole (Flagyl) 500 mg PO Q8 [facility] PRN Reason: Protocol Stop: 10/25/16 14:01 Last Admin: 10/19/16 06:22 Dose: 500 mg Nystatin (Nystop Topical Powder) 1 gm TOP BID [facility] Last Admin: 10/18/16 17:44 Dose: 1 applic Oxycodone/Acetaminophen (Percocet 5/325 Mg Tab) 1 tab PO Q4H PRN PRN Reason: Pain, moderate (4-7) Stop: 10/21/16 18:51 Pantoprazole Sodium (Protonix Ec Tab) 40 mg PO 0600 [facility] Last Admin: 10/19/16 06:22 Dose: 40 mg Potassium Chloride (K-Dur 20 Meq Er Tab) 20 meq PO BRK [facility] Last Admin: 10/18/16 10:11 Dose: 20 meq Prednisone (Prednisone Tab) 10 mg PO DAILY [facility] Vancomycin HCl (Vancocin 25 Mg/Ml (Oral Use)) 125 mg PO QID [facility] PRN Reason: Protocol Stop: 10/27/16 14:01 Last Admin: 10/18/16 21:16 Dose: 125 mg Verapamil HCl (Calan Tab) 80 mg PO TID [facility] Last Admin: 10/18/16 17:44 Dose: 80 mg - Labs Labs: 10/18/16 06:45 10/18/16 06:45 PT 14.7 Seconds (9.9-11.8) H 10/09/16 11:20 INR 1.36 (0.93-1.08) H 10/09/16 11:20 APTT 24.7 Seconds (23.7-30.8) 10/09/16 11:20 - Constitutional Appears: Non-toxic, No Acute Distress - Head Exam Head Exam: NORMAL INSPECTION - Neck Exam Neck Exam: absent: Meningismus - Respiratory Exam Respiratory Exam: Decreased Breath Sounds - Cardiovascular Exam Cardiovascular Exam: +S1, +S2 - GI/Abdominal Exam GI & Abdominal Exam: Soft. absent: Tenderness Assessment and Plan - Assessment and Plan (Free Text) Plan: Assessment Acute diverticulitis and C. diff. colitis, clinically improving history of C.diff. colitis history of E. faecalis bacteremia probably urine as the source HTN dyslipidemia S/P cerebrovascular accident chronic atrial fibrillation COPD CHF Plan will d/c Flagyl and Vantin (completed 8 days of IV and PO antibiotics) and continue PO Vancomycin (day 3) - should have at least 14 days of PO Vancomycin Will continue to follow clinically while the patient is in the hospital
--- NOTE | 2016-10-19 18:38 | CP.PCM.PN ---
Subjective - Date & Time of Evaluation Date of Evaluation: 10/19/16 Time of Evaluation: 18:35 - Subjective Subjective: Pt with no CP/SOB/N/V. Objective - Vital Signs/Intake and Output Vital Signs (last 24 hours): Temp Pulse Resp BP Pulse Ox 98 F 65 18 116/70 94 L 10/19/16 15:56 10/19/16 18:03 10/19/16 15:56 10/19/16 18:03 10/19/16 15:56 Intake and Output: 10/19/16 10/19/16 06:59 18:59 Intake Total 660 925 Balance 660 925 - Medications Medications: Current Medications Acetaminophen (Tylenol 325mg Tab) 650 mg PO Q4H PRN PRN Reason: Pain, Mild (1-3) Last Admin: 10/18/16 18:57 Dose: 650 mg Alprazolam (Xanax) 0.25 mg PO Q6H PRN; Protocol PRN Reason: Anxiety Stop: 10/26/16 18:16 Last Admin: 10/19/16 18:25 Dose: 0.25 mg Apixaban (Eliquis) 2.5 mg PO BID [facility] PRN Reason: Protocol Last Admin: 10/19/16 18:00 Dose: 2.5 mg Arformoterol Tartrate (Brovana) 15 mcg IH [id number] [facility] Last Admin: 10/19/16 07:18 Dose: 15 mcg Atenolol (Tenormin) 25 mg PO BID [facility] Last Admin: 10/19/16 18:03 Dose: 25 mg Budesonide (Pulmicort Respules) 0.5 mg IH [id number] [facility] Last Admin: 10/19/16 07:18 Dose: 0.5 mg Furosemide (Lasix) 40 mg PO 0800,1400 [facility] Last Admin: 10/19/16 14:45 Dose: 40 mg Levalbuterol HCl (Xopenex) 0.63 mg IH [id number] PRN PRN Reason: Shortness of Breath Last Admin: 10/16/16 18:57 Dose: 0.63 mg Nystatin (Nystop Topical Powder) 1 gm TOP BID [facility] Last Admin: 10/19/16 09:38 Dose: 1 applic Oxycodone/Acetaminophen (Percocet 5/325 Mg Tab) 1 tab PO Q4H PRN PRN Reason: Pain, moderate (4-7) Stop: 10/21/16 18:51 Pantoprazole Sodium (Protonix Ec Tab) 40 mg PO 0600 [facility] Last Admin: 10/19/16 06:22 Dose: 40 mg Petrolatum (Desitin Maximum Strength Topical 40% Oint) 0 gm TOP Q4H PRN PRN Reason: Rash Potassium Chloride (K-Dur 20 Meq Er Tab) 20 meq PO BRK [facility] Last Admin: 10/19/16 08:11 Dose: 20 meq Prednisone (Prednisone Tab) 10 mg PO DAILY [facility] Last Admin: 10/19/16 09:39 Dose: 10 mg Vancomycin HCl (Vancocin 25 Mg/Ml (Oral Use)) 125 mg PO QID [facility] PRN Reason: Protocol Stop: 10/27/16 14:01 Last Admin: 10/19/16 18:03 Dose: 125 mg Verapamil HCl (Calan Tab) 80 mg PO TID [facility] Last Admin: 10/19/16 18:03 Dose: 80 mg - Labs Labs: 10/18/16 06:45 10/18/16 06:45 PT 14.7 Seconds (9.9-11.8) H 10/09/16 11:20 INR 1.36 (0.93-1.08) H 10/09/16 11:20 APTT 24.7 Seconds (23.7-30.8) 10/09/16 11:20 - Constitutional Appears: Well - Head Exam Head Exam: NORMAL INSPECTION - Eye Exam Eye Exam: EOMI, Normal appearance, PERRL - Respiratory Exam Respiratory Exam: Clear to Ausculation Bilateral, NORMAL BREATHING PATTERN. absent: Rales, Wheezes - Cardiovascular Exam Cardiovascular Exam: REGULAR RHYTHM, RRR, +S1, +S2. absent: Murmur - Rectal Exam Rectal Exam: NORMAL INSPECTION - Psychiatric Exam Psychiatric exam: Flat Affect Assessment and Plan - Assessment and Plan (Free Text) Assessment: chronic CHF- secondary diastolic dysfunction Pulm HTN COPD A fib Dyslipidemia Anxiety Plan: Pt on Albuterol. On Verpamil . On Eliquis for A fib. Will need [facility]. PT. Prednisone and Neb. Waiting to go to [facility] care.
[2016-10-19] MEDS: Oxycodone/Acetaminophen 5/325 mg Tab PO PRN (22:19)
[2016-10-20] MEDS: Oxycodone/Acetaminophen 5/325 mg Tab PO PRN ×2 (02:18→06:18)
[2016-10-20] MEDS: Pantoprazole 40 mg EC Tab PO SCH (06:18)
[2016-10-20] MEDS: Budesonide 0.5 mg/2 ml Inhal Susp UD IH SCH ×2 (07:39→20:37)
[2016-10-20] MEDS: Arformoterol 15 mcg/2 ml Inh Sol IH SCH ×2 (07:39→20:37)
[2016-10-20] MEDS: Nystatin 100,000 Units/gm Topical Pow(15 gm) TOP SCH ×2 (10:00→18:30)
[2016-10-20] MEDS: Potassium Chloride 20 mEq ER Tab PO SCH (11:00)
[2016-10-20] MEDS: Vancomycin 25 MG/ML PO SCH ×5 (11:01→22:18)
--- NOTE | 2016-10-20 11:31 | CP.PCM.PN ---
Subjective - Date & Time of Evaluation Date of Evaluation: 10/20/16 Time of Evaluation: 10:50 - Subjective Subjective: Comfortable in bed, eating well, no diarrhea, no fevers overnight, no abdominal pain. Objective - Vital Signs/Intake and Output Vital Signs (last 24 hours): Temp Pulse Resp BP Pulse Ox 97.7 F 74 20 126/65 97 10/20/16 07:51 10/20/16 07:51 10/20/16 07:51 10/20/16 07:51 10/20/16 07:51 Intake and Output: 10/20/16 10/20/16 06:59 18:59 Intake Total 780 Balance 780 - Medications Medications: Current Medications Acetaminophen (Tylenol 325mg Tab) 650 mg PO Q4H PRN PRN Reason: Pain, Mild (1-3) Last Admin: 10/18/16 18:57 Dose: 650 mg Alprazolam (Xanax) 0.25 mg PO Q6H PRN; Protocol PRN Reason: Anxiety Stop: 10/26/16 18:16 Last Admin: 10/19/16 18:25 Dose: 0.25 mg Apixaban (Eliquis) 2.5 mg PO BID [facility] PRN Reason: Protocol Last Admin: 10/19/16 18:00 Dose: 2.5 mg Arformoterol Tartrate (Brovana) 15 mcg IH [id number] [facility] Last Admin: 10/20/16 07:39 Dose: 15 mcg Atenolol (Tenormin) 25 mg PO BID [facility] Last Admin: 10/19/16 18:03 Dose: 25 mg Budesonide (Pulmicort Respules) 0.5 mg IH [id number] [facility] Last Admin: 10/20/16 07:39 Dose: 0.5 mg Furosemide (Lasix) 40 mg PO 0800,1400 [facility] Last Admin: 10/19/16 14:45 Dose: 40 mg Levalbuterol HCl (Xopenex) 0.63 mg IH [id number] PRN PRN Reason: Shortness of Breath Last Admin: 10/16/16 18:57 Dose: 0.63 mg Nystatin (Nystop Topical Powder) 1 gm TOP BID [facility] Last Admin: 10/19/16 09:38 Dose: 1 applic Oxycodone/Acetaminophen (Percocet 5/325 Mg Tab) 1 tab PO Q4H PRN PRN Reason: Pain, moderate (4-7) Stop: 10/21/16 18:51 Last Admin: 10/20/16 06:18 Dose: 1 tab Pantoprazole Sodium (Protonix Ec Tab) 40 mg PO 0600 [facility] Last Admin: 10/20/16 06:18 Dose: 40 mg Petrolatum (Desitin Maximum Strength Topical 40% Oint) 0 gm TOP Q4H PRN PRN Reason: Rash Potassium Chloride (K-Dur 20 Meq Er Tab) 20 meq PO BRK [facility] Last Admin: 10/19/16 08:11 Dose: 20 meq Prednisone (Prednisone Tab) 10 mg PO DAILY [facility] Last Admin: 10/19/16 09:39 Dose: 10 mg Vancomycin HCl (Vancocin 25 Mg/Ml (Oral Use)) 125 mg PO QID [facility] PRN Reason: Protocol Stop: 10/27/16 14:01 Last Admin: 10/19/16 23:17 Dose: 125 mg Verapamil HCl (Calan Tab) 80 mg PO TID [facility] Last Admin: 10/19/16 18:03 Dose: 80 mg - Labs Labs: 10/18/16 06:45 10/18/16 06:45 PT 14.7 Seconds (9.9-11.8) H 10/09/16 11:20 INR 1.36 (0.93-1.08) H 10/09/16 11:20 APTT 24.7 Seconds (23.7-30.8) 10/09/16 11:20 - Constitutional Appears: Non-toxic, No Acute Distress - Head Exam Head Exam: NORMAL INSPECTION - ENT Exam ENT Exam: Mucous Membranes Moist - Neck Exam Neck Exam: absent: Lymphadenopathy, Meningismus - Respiratory Exam Respiratory Exam: Decreased Breath Sounds - Cardiovascular Exam Cardiovascular Exam: +S1, +S2 - GI/Abdominal Exam GI & Abdominal Exam: Soft. absent: Tenderness Assessment and Plan - Assessment and Plan (Free Text) Plan: Assessment Acute diverticulitis and C. diff. colitis, clinically improving history of C.diff. colitis history of E. faecalis bacteremia probably urine as the source HTN dyslipidemia S/P cerebrovascular accident chronic atrial fibrillation COPD CHF Plan completed Flagyl and Vantin (completed 8 days of IV and PO antibiotics); continue PO Vancomycin (day 4) - should have at least 14 days of PO Vancomycin Will continue to follow clinically while the patient is in the hospital
[2016-10-21] MEDS: Pantoprazole 40 mg EC Tab PO SCH (05:34)
[2016-10-21] MEDS: Arformoterol 15 mcg/2 ml Inh Sol IH SCH ×2 (09:18→21:10)
[2016-10-21] MEDS: Budesonide 0.5 mg/2 ml Inhal Susp UD IH SCH ×2 (09:18→21:10)
[2016-10-21] MEDS: Potassium Chloride 20 mEq ER Tab PO SCH (10:44)
[2016-10-21] MEDS: Vancomycin 25 MG/ML PO SCH ×4 (10:45→21:48)
[2016-10-21] MEDS: Nystatin 100,000 Units/gm Topical Pow(15 gm) TOP SCH ×2 (11:00→18:00)
[2016-10-21] MEDS: Oxycodone/Acetaminophen 5/325 mg Tab PO PRN (17:34)
[2016-10-21] MEDS: Levalbuterol 0.63 MG/3 ML Inhal Soln UD IH PRN (17:42)
[2016-10-22] MEDS: Pantoprazole 40 mg EC Tab PO SCH (05:49)
[2016-10-22] MEDS: Budesonide 0.5 mg/2 ml Inhal Susp UD IH SCH ×2 (07:18→20:26)
[2016-10-22] MEDS: Arformoterol 15 mcg/2 ml Inh Sol IH SCH ×2 (07:18→20:26)
[2016-10-22] MEDS: Potassium Chloride 20 mEq ER Tab PO SCH (09:37)
[2016-10-22] MEDS: Vancomycin 25 MG/ML PO SCH ×4 (09:43→22:44)
--- NOTE | 2016-10-22 11:21 | CP.PCM.PN ---
Subjective - Date & Time of Evaluation Date of Evaluation: 10/22/16 Time of Evaluation: 08:00 - Subjective Subjective: Denies Chest Pain. SOB, Palpitations. Lying Flat in Bed. Objective - Vital Signs/Intake and Output Vital Signs (last 24 hours): Temp Pulse Resp BP Pulse Ox 98.2 F 80 20 119/61 97 10/21/16 07:33 10/22/16 09:56 10/21/16 17:13 10/22/16 09:56 10/21/16 17:13 Intake and Output: 10/22/16 10/22/16 06:59 18:59 Output Total 2 Balance -2 - Medications Medications: Current Medications Acetaminophen (Tylenol 325mg Tab) 650 mg PO Q4H PRN PRN Reason: Pain, Mild (1-3) Last Admin: 10/21/16 10:45 Dose: 650 mg Alprazolam (Xanax) 0.25 mg PO Q6H PRN; Protocol PRN Reason: Anxiety Stop: 10/26/16 18:16 Last Admin: 10/22/16 06:29 Dose: 0.25 mg Apixaban (Eliquis) 2.5 mg PO BID [facility] PRN Reason: Protocol Last Admin: 10/22/16 09:43 Dose: 2.5 mg Arformoterol Tartrate (Brovana) 15 mcg [facility] [id number] [facility] Last Admin: 10/22/16 07:18 Dose: 15 mcg Atenolol (Tenormin) 25 mg PO BID [facility] Last Admin: 10/22/16 09:43 Dose: 25 mg Budesonide (Pulmicort Respules) 0.5 mg IH [id number] [facility] Last Admin: 10/22/16 07:18 Dose: 0.5 mg Furosemide (Lasix) 40 mg PO 0800,1400 [facility] Last Admin: 10/22/16 09:39 Dose: 40 mg Levalbuterol HCl (Xopenex) 0.63 mg IH [id number] PRN PRN Reason: Shortness of Breath Last Admin: 10/21/16 17:42 Dose: 0.63 mg Nystatin (Nystop Topical Powder) 1 gm TOP BID [facility] Last Admin: 10/21/16 18:00 Dose: 1 applic Ondansetron HCl (Zofran Inj) 4 mg IVP Q4H PRN PRN Reason: Nausea/Vomiting Last Admin: 10/21/16 18:07 Dose: 4 mg Pantoprazole Sodium (Protonix Ec Tab) 40 mg PO 0600 [facility] Last Admin: 10/22/16 05:49 Dose: 40 mg Petrolatum (Desitin Maximum Strength Topical 40% Oint) 0 gm TOP Q4H PRN PRN Reason: Rash Potassium Chloride (K-Dur 20 Meq Er Tab) 20 meq PO BRK [facility] Last Admin: 10/22/16 09:37 Dose: 20 meq Prednisone (Prednisone Tab) 10 mg PO DAILY [facility] Last Admin: 10/22/16 09:39 Dose: 10 mg Vancomycin HCl (Vancocin 25 Mg/Ml (Oral Use)) 125 mg PO QID [facility] PRN Reason: Protocol Stop: 10/27/16 14:01 Last Admin: 10/22/16 09:43 Dose: 125 mg Verapamil HCl (Calan Tab) 80 mg PO TID [facility] Last Admin: 10/22/16 09:56 Dose: Not Given - Labs Labs: 10/18/16 06:45 10/18/16 06:45 PT 14.7 Seconds (9.9-11.8) H 10/09/16 11:20 INR 1.36 (0.93-1.08) H 10/09/16 11:20 APTT 24.7 Seconds (23.7-30.8) 10/09/16 11:20 - Constitutional Appears: Well - Head Exam Head Exam: NORMOCEPHALIC - Eye Exam Eye Exam: Normal appearance - ENT Exam ENT Exam: Mucous Membranes Moist, Normal Exam - Neck Exam Neck Exam: Full ROM, Normal Inspection. absent: Lymphadenopathy - Respiratory Exam Respiratory Exam: Clear to Ausculation Bilateral, NORMAL BREATHING PATTERN - Cardiovascular Exam Cardiovascular Exam: Irregular Rhythm, +S1, +S2 - GI/Abdominal Exam GI & Abdominal Exam: Soft, Normal Bowel Sounds. absent: Tenderness - Exam Exam: Circumcision, NORMAL INSPECTION External exam: NORMAL EXTERNAL EXAM Speculum exam: NORMAL SPECULUM EXAM Bimanual exam: NORMAL BIMANUAL EXAM - Extremities Exam Extremities Exam: Normal Inspection Assessment and Plan (1) Congestive heart failure Status: Acute (2) Pseudomembranous colitis Status: Acute (3) Rapid atrial fibrillation Status: Acute (4) Sepsis Status: Acute - Assessment and Plan (Free Text) Assessment: CHF. LV Systolic Dysfunction. Atrial Fibrillation. MR,TR,Anaenia, COPD,Pulm Hyoertension.Dyslipidemia, Anxiety. Plan: Continue Eliquis, Lasix, Atenolol, Verapamil.Repeat CBC, SMA-7 Am.
--- NOTE | 2016-10-22 12:20 | CP.PCM.PN ---
<Dorothea De Jesus - Last Filed: 10/22/16 12:19> Subjective - Date & Time of Evaluation Date of Evaluation: 10/22/16 Time of Evaluation: 10:00 - Subjective Subjective: S&E at bedside, chart reviewed. Had soft formed BM, no blood, good amount. had nausea and vomited the other day, no further episode. No SOB, CP, or abdominal pain. No acute overnight events reported. Objective - Vital Signs/Intake and Output Vital Signs (last 24 hours): Temp Pulse Resp BP Pulse Ox 98.2 F 80 20 119/61 97 10/21/16 07:33 10/22/16 09:56 10/21/16 17:13 10/22/16 09:56 10/21/16 17:13 Intake and Output: 10/22/16 10/22/16 06:59 18:59 Output Total 2 Balance -2 - Medications Medications: Current Medications Acetaminophen (Tylenol 325mg Tab) 650 mg PO Q4H PRN PRN Reason: Pain, Mild (1-3) Last Admin: 10/21/16 10:45 Dose: 650 mg Alprazolam (Xanax) 0.25 mg PO Q6H PRN; Protocol PRN Reason: Anxiety Stop: 10/26/16 18:16 Last Admin: 10/22/16 06:29 Dose: 0.25 mg Apixaban (Eliquis) 2.5 mg PO BID [facility] PRN Reason: Protocol Last Admin: 10/22/16 09:43 Dose: 2.5 mg Arformoterol Tartrate (Brovana) 15 mcg IH [id number] [facility] Last Admin: 10/22/16 07:18 Dose: 15 mcg Atenolol (Tenormin) 25 mg PO BID [facility] Last Admin: 10/22/16 09:43 Dose: 25 mg Budesonide (Pulmicort Respules) 0.5 mg IH [id number] [facility] Last Admin: 10/22/16 07:18 Dose: 0.5 mg Furosemide (Lasix) 40 mg PO 0800,1400 [facility] Last Admin: 10/22/16 09:39 Dose: 40 mg Levalbuterol HCl (Xopenex) 0.63 mg IH [id number] PRN PRN Reason: Shortness of Breath Last Admin: 10/21/16 17:42 Dose: 0.63 mg Nystatin (Nystop Topical Powder) 1 gm TOP BID [facility] Last Admin: 10/21/16 18:00 Dose: 1 applic Ondansetron HCl (Zofran Inj) 4 mg IVP Q4H PRN PRN Reason: Nausea/Vomiting Last Admin: 10/21/16 18:07 Dose: 4 mg Pantoprazole Sodium (Protonix Ec Tab) 40 mg PO 0600 [facility] Last Admin: 10/22/16 05:49 Dose: 40 mg Petrolatum (Desitin Maximum Strength Topical 40% Oint) 0 gm TOP Q4H PRN PRN Reason: Rash Potassium Chloride (K-Dur 20 Meq Er Tab) 20 meq PO BRK [facility] Last Admin: 10/22/16 09:37 Dose: 20 meq Prednisone (Prednisone Tab) 10 mg PO DAILY [facility] Last Admin: 10/22/16 09:39 Dose: 10 mg Vancomycin HCl (Vancocin 25 Mg/Ml (Oral Use)) 125 mg PO QID [facility] PRN Reason: Protocol Stop: 10/27/16 14:01 Last Admin: 10/22/16 09:43 Dose: 125 mg Verapamil HCl (Calan Tab) 80 mg PO TID [facility] Last Admin: 10/22/16 09:56 Dose: Not Given - Labs Labs: 10/18/16 06:45 10/18/16 06:45 PT 14.7 Seconds (9.9-11.8) H 10/09/16 11:20 INR 1.36 (0.93-1.08) H 10/09/16 11:20 APTT 24.7 Seconds (23.7-30.8) 10/09/16 11:20 - Constitutional Appears: No Acute Distress - Eye Exam Eye Exam: Normal appearance. absent: Scleral icterus - ENT Exam ENT Exam: Mucous Membranes Moist - Neck Exam Neck Exam: Normal Inspection - Respiratory Exam Respiratory Exam: NORMAL BREATHING PATTERN. absent: Respiratory Distress - Cardiovascular Exam Cardiovascular Exam: +S1, +S2 - GI/Abdominal Exam GI & Abdominal Exam: Soft, Normal Bowel Sounds. absent: Guarding, Tenderness, Rebound - Extremities Exam Extremities Exam: absent: Calf Tenderness, Pedal Edema - Neurological Exam Neurological Exam: Alert, Awake, Oriented x3 (confused at times) - Skin Skin Exam: Dry, Warm Assessment and Plan - Assessment and Plan (Free Text) Assessment: SSESSMENT: Resolved Diarrhea, CDiff positive Antigen/Toxin Acute Diverticulitis, pt, no abdominal pain s/p Leukocytosis CHF Resolved Lower Ext. Cellutitis Elevated LFT/Hyperbilirubinemia, abdominal US no GB stone, CBD 3mm, maybe secondary to hepatic congestion, improving. Chronic Atrial Fibrillation CVA COPD PLAN: diet as tolerated continue PPI on Eliquis on Lasix on PO antibiotic Vancomycin on Prednisone monitor electrolytes trend LFT awaiting placement Seen and discussed with Dr. Cavazos. <Rohan Cavazos V - Last Filed: 10/23/16 00:01> Objective - Vital Signs/Intake and Output Vital Signs (last 24 hours): Temp Pulse Resp BP Pulse Ox 98.4 F 78 20 100/49 L 96 10/22/16 15:56 10/22/16 23:10 10/22/16 15:56 10/22/16 19:36 10/22/16 15:56 Intake and Output: 10/22/16 10/23/16 18:59 06:59 Intake Total 760 420 Balance 760 420 - Medications Medications: Current Medications Acetaminophen (Tylenol 325mg Tab) 650 mg PO Q4H PRN PRN Reason: Pain, Mild (1-3) Last Admin: 10/21/16 10:45 Dose: 650 mg Alprazolam (Xanax) 0.25 mg PO Q6H PRN; Protocol PRN Reason: Anxiety Stop: 10/26/16 18:16 Last Admin: 10/22/16 18:44 Dose: 0.25 mg Apixaban (Eliquis) 2.5 mg PO BID [facility] PRN Reason: Protocol Last Admin: 10/22/16 18:44 Dose: 2.5 mg Arformoterol Tartrate (Brovana) 15 mcg IH [id number] [facility] Last Admin: 10/22/16 20:26 Dose: 15 mcg Atenolol (Tenormin) 25 mg PO BID [facility] Last Admin: 10/22/16 18:45 Dose: 25 mg Budesonide (Pulmicort Respules) 0.5 mg IH [id number] [facility] Last Admin: 10/22/16 20:26 Dose: 0.5 mg Furosemide (Lasix) 40 mg PO 0800,1400 [facility] Last Admin: 10/22/16 15:47 Dose: 40 mg Levalbuterol HCl (Xopenex) 0.63 mg IH [id number] PRN PRN Reason: Shortness of Breath Last Admin: 10/21/16 17:42 Dose: 0.63 mg Nystatin (Nystop Topical Powder) 1 gm TOP BID [facility] Last Admin: 10/22/16 19:41 Dose: 1 applic Ondansetron HCl (Zofran Inj) 4 mg IVP Q4H PRN PRN Reason: Nausea/Vomiting Last Admin: 10/21/16 18:07 Dose: 4 mg Pantoprazole Sodium (Protonix Ec Tab) 40 mg PO 0600 [facility] Last Admin: 10/22/16 05:49 Dose: 40 mg Petrolatum (Desitin Maximum Strength Topical 40% Oint) 0 gm TOP Q4H PRN PRN Reason: Rash Potassium Chloride (K-Dur 20 Meq Er Tab) 20 meq PO BRK [facility] Last Admin: 10/22/16 09:37 Dose: 20 meq Prednisone (Prednisone Tab) 5 mg PO DAILY [facility] Stop: 10/24/16 23:59 Vancomycin HCl (Vancocin 25 Mg/Ml (Oral Use)) 125 mg PO QID [facility] PRN Reason: Protocol Stop: 10/27/16 14:01 Last Admin: 10/22/16 22:44 Dose: 125 mg Verapamil HCl (Calan Tab) 80 mg PO TID [facility] Last Admin: 10/22/16 19:36 Dose: 80 mg - Labs Labs: 10/18/16 06:45 10/18/16 06:45 PT 14.7 Seconds (9.9-11.8) H 10/09/16 11:20 INR 1.36 (0.93-1.08) H 10/09/16 11:20 APTT 24.7 Seconds (23.7-30.8) 10/09/16 11:20 Attending/Attestation - Attestation I have personally seen and examined this patient.: Yes I have fully participated in the care of the patient.: Yes I have reviewed all pertinent clinical information, including history, physical exam and plan: Yes Notes (Text): this
[2016-10-22] MEDS: Nystatin 100,000 Units/gm Topical Pow(15 gm) TOP SCH ×2 (16:22→19:41)
--- NOTE | 2016-10-22 20:54 | CP.PCM.PN ---
Subjective - Date & Time of Evaluation Date of Evaluation: 10/22/16 Time of Evaluation: 16:00 - Subjective Subjective: This is an 85Y F with PMH chronic a.fib on Eliquis, CHF, CVA x 2, COPD, HTN, HLD , c. diff who came to the ED for SOB x 2 days. today off B PAP and feels better , decrease SOB, little sleepy today, awaiting for placement? Objective - Vital Signs/Intake and Output Vital Signs (last 24 hours): Temp Pulse Resp BP Pulse Ox 98.4 F 60 20 100/49 L 96 10/22/16 15:56 10/22/16 19:36 10/22/16 15:56 10/22/16 19:36 10/22/16 15:56 Intake and Output: 10/22/16 10/23/16 18:59 06:59 Intake Total 760 Balance 760 - Medications Medications: Current Medications Acetaminophen (Tylenol 325mg Tab) 650 mg PO Q4H PRN PRN Reason: Pain, Mild (1-3) Last Admin: 10/21/16 10:45 Dose: 650 mg Alprazolam (Xanax) 0.25 mg PO Q6H PRN; Protocol PRN Reason: Anxiety Stop: 10/26/16 18:16 Last Admin: 10/22/16 18:44 Dose: 0.25 mg Apixaban (Eliquis) 2.5 mg PO BID [facility] PRN Reason: Protocol Last Admin: 10/22/16 18:44 Dose: 2.5 mg Arformoterol Tartrate (Brovana) 15 mcg IH [id number] [facility] Last Admin: 10/22/16 20:26 Dose: 15 mcg Atenolol (Tenormin) 25 mg PO BID [facility] Last Admin: 10/22/16 18:45 Dose: 25 mg Budesonide (Pulmicort Respules) 0.5 mg IH [id number] [facility] Last Admin: 10/22/16 20:26 Dose: 0.5 mg Furosemide (Lasix) 40 mg PO 0800,1400 [facility] Last Admin: 10/22/16 15:47 Dose: 40 mg Levalbuterol HCl (Xopenex) 0.63 mg IH [id number] PRN PRN Reason: Shortness of Breath Last Admin: 10/21/16 17:42 Dose: 0.63 mg Nystatin (Nystop Topical Powder) 1 gm TOP BID [facility] Last Admin: 10/22/16 19:41 Dose: 1 applic Ondansetron HCl (Zofran Inj) 4 mg IVP Q4H PRN PRN Reason: Nausea/Vomiting Last Admin: 10/21/16 18:07 Dose: 4 mg Pantoprazole Sodium (Protonix Ec Tab) 40 mg PO 0600 [facility] Last Admin: 10/22/16 05:49 Dose: 40 mg Petrolatum (Desitin Maximum Strength Topical 40% Oint) 0 gm TOP Q4H PRN PRN Reason: Rash Potassium Chloride (K-Dur 20 Meq Er Tab) 20 meq PO BRK [facility] Last Admin: 10/22/16 09:37 Dose: 20 meq Prednisone (Prednisone Tab) 10 mg PO DAILY [facility] Last Admin: 10/22/16 09:39 Dose: 10 mg Vancomycin HCl (Vancocin 25 Mg/Ml (Oral Use)) 125 mg PO QID [facility] PRN Reason: Protocol Stop: 10/27/16 14:01 Last Admin: 10/22/16 19:23 Dose: 125 mg Verapamil HCl (Calan Tab) 80 mg PO TID [facility] Last Admin: 10/22/16 19:36 Dose: 80 mg - Labs Labs: 10/18/16 06:45 10/18/16 06:45 PT 14.7 Seconds (9.9-11.8) H 10/09/16 11:20 INR 1.36 (0.93-1.08) H 10/09/16 11:20 APTT 24.7 Seconds (23.7-30.8) 10/09/16 11:20 - Constitutional Appears: No Acute Distress - Head Exam Head Exam: ATRAUMATIC, NORMAL INSPECTION, NORMOCEPHALIC - ENT Exam ENT Exam: Mucous Membranes Moist, Normal Exam - Neck Exam Neck Exam: Full ROM, Normal Inspection. absent: Lymphadenopathy - Respiratory Exam Respiratory Exam: Rhonchi - Cardiovascular Exam Cardiovascular Exam: Irregular Rhythm - GI/Abdominal Exam GI & Abdominal Exam: Soft, Normal Bowel Sounds. absent: Tenderness - Extremities Exam Extremities Exam: Full ROM, Normal Capillary Refill, Normal Inspection. absent : Joint Swelling, Pedal Edema - Neurological Exam Neurological Exam: Alert, Awake - Psychiatric Exam Psychiatric exam: Flat Affect - Skin Skin Exam: absent: Cyanosis, Diaphoretic Assessment and Plan (1) Diverticulitis large intestine Status: Resolved (2) Rapid atrial fibrillation Assessment & Plan: on anticoagulation,and beta serenity Status: Chronic (3) Anemia Assessment & Plan: stable Status: Chronic (4) Bilateral lower leg cellulitis Status: Resolved (5) Sleep apnea in adult Assessment & Plan: out patient sleep study if possible Status: Acute (6) Chronic lung disease Assessment & Plan: taper of steroids, continue inhale bronchodilators Status: Acute (7) Congestive heart failure Assessment & Plan: 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
[2016-10-23] MEDS: Pantoprazole 40 mg EC Tab PO SCH (05:48)
[2016-10-23] MEDS: Budesonide 0.5 mg/2 ml Inhal Susp UD IH SCH ×2 (07:13→19:34)
[2016-10-23] MEDS: Arformoterol 15 mcg/2 ml Inh Sol IH SCH ×2 (07:14→19:34)
[2016-10-23 07:33] LABS: EOS # 0.1 (0.0-0.7); EOS % 0.7 % (1.5-5.0); GRAN # 13.13 (1.4-6.5); HEMOGLOBIN 10.3 gm/dL (12.0-16.0); LYMPH # 2.9 (1.2-3.4); LYMPH % 16.7 % (22.0-35.0); MEAN CELL VOLUME 85.6 fL (80.0-105.0); MEAN CORPUSCULAR HEMOGLOBIN 25.1 pg (25.0-35.0); MEAN CORPUSCULAR HGB CONC 29.3 g/dl (31.0-37.0); MEAN PLATELET VOLUME 10.4 fl (7.0-11.0); MONO % 5.6 % (1.0-6.0); PLATELET COUNT 279 10^3/uL (120.0-450.0); RED CELL DISTRIBUTION WIDTH 21.5 % (11.5-14.5); WHITE BLOOD COUNT 17.1 10^3/ul (4.5-11.0)
[2016-10-23 07:47] LABS: CALCIUM 8.3 mg/dL (8.4-10.5); MAGNESIUM 2.1 mg/dL (1.7-2.2)
[2016-10-23] MEDS: Potassium Chloride 20 mEq ER Tab PO SCH (08:27)
[2016-10-23] MEDS: Nystatin 100,000 Units/gm Topical Pow(15 gm) TOP SCH ×2 (10:00→16:00)
[2016-10-23] MEDS: Vancomycin 25 MG/ML PO SCH ×3 (10:46→22:52)
--- NOTE | 2016-10-23 11:33 | CP.PCM.PN ---
Subjective - Date & Time of Evaluation Date of Evaluation: 10/23/16 Time of Evaluation: 08:45 - Subjective Subjective: Comfortable in bed, not in distress, afebrile, no diarrhea, no abdominal pain. Objective - Vital Signs/Intake and Output Vital Signs (last 24 hours): Temp Pulse Resp BP Pulse Ox 97.4 F L 70 22 107/59 L 96 10/23/16 07:30 10/23/16 07:30 10/23/16 07:30 10/23/16 08:27 10/23/16 07:30 Intake and Output: 10/23/16 10/23/16 06:59 18:59 Intake Total 540 Output Total 2 Balance 538 - Medications Medications: Current Medications Acetaminophen (Tylenol 325mg Tab) 650 mg PO Q4H PRN PRN Reason: Pain, Mild (1-3) Last Admin: 10/21/16 10:45 Dose: 650 mg Alprazolam (Xanax) 0.25 mg PO Q6H PRN; Protocol PRN Reason: Anxiety Stop: 10/26/16 18:16 Last Admin: 10/22/16 18:44 Dose: 0.25 mg Apixaban (Eliquis) 2.5 mg PO BID [facility] PRN Reason: Protocol Last Admin: 10/22/16 18:44 Dose: 2.5 mg Arformoterol Tartrate (Brovana) 15 mcg IH [id number] [facility] Last Admin: 10/23/16 07:14 Dose: 15 mcg Atenolol (Tenormin) 25 mg PO BID [facility] Last Admin: 10/22/16 18:45 Dose: 25 mg Budesonide (Pulmicort Respules) 0.5 mg IH [id number] [facility] Last Admin: 10/23/16 07:13 Dose: 0.5 mg Furosemide (Lasix) 40 mg PO 0800,1400 [facility] Last Admin: 10/23/16 08:27 Dose: 40 mg Levalbuterol HCl (Xopenex) 0.63 mg IH [id number] PRN PRN Reason: Shortness of Breath Last Admin: 10/21/16 17:42 Dose: 0.63 mg Nystatin (Nystop Topical Powder) 1 gm TOP BID [facility] Last Admin: 10/22/16 19:41 Dose: 1 applic Ondansetron HCl (Zofran Inj) 4 mg IVP Q4H PRN PRN Reason: Nausea/Vomiting Last Admin: 10/21/16 18:07 Dose: 4 mg Pantoprazole Sodium (Protonix Ec Tab) 40 mg PO 0600 [facility] Last Admin: 10/23/16 05:48 Dose: 40 mg Petrolatum (Desitin Maximum Strength Topical 40% Oint) 0 gm TOP Q4H PRN PRN Reason: Rash Potassium Chloride (K-Dur 20 Meq Er Tab) 20 meq PO BRK [facility] Last Admin: 10/23/16 08:27 Dose: 20 meq Prednisone (Prednisone Tab) 5 mg PO DAILY [facility] Stop: 10/24/16 23:59 Vancomycin HCl (Vancocin 25 Mg/Ml (Oral Use)) 125 mg PO QID [facility] PRN Reason: Protocol Stop: 10/27/16 14:01 Last Admin: 10/22/16 22:44 Dose: 125 mg Verapamil HCl (Calan Tab) 80 mg PO TID [facility] Last Admin: 10/22/16 19:36 Dose: 80 mg - Labs Labs: 10/23/16 06:45 10/23/16 06:45 PT 14.7 Seconds (9.9-11.8) H 10/09/16 11:20 INR 1.36 (0.93-1.08) H 10/09/16 11:20 APTT 24.7 Seconds (23.7-30.8) 10/09/16 11:20 - Constitutional Appears: Non-toxic, No Acute Distress - Head Exam Head Exam: NORMAL INSPECTION - Neck Exam Neck Exam: absent: Meningismus - Respiratory Exam Respiratory Exam: Decreased Breath Sounds - Cardiovascular Exam Cardiovascular Exam: +S1, +S2 - GI/Abdominal Exam GI & Abdominal Exam: Soft. absent: Tenderness Assessment and Plan - Assessment and Plan (Free Text) Plan: Assessment Acute diverticulitis and C. diff. colitis, clinically improving New onset leukocytosis, R/O new onset infection history of C.diff. colitis history of E. faecalis bacteremia probably urine as the source HTN dyslipidemia S/P cerebrovascular accident chronic atrial fibrillation COPD CHF Plan completed Flagyl and Vantin (completed 8 days of IV and PO antibiotics); continue PO Vancomycin (day 6) - should have at least 14 days of PO Vancomycin will check blood and urine cx, CXR Will continue to follow clinically Discussed with Dr. Gilliland
--- NOTE | 2016-10-23 11:33 | CP.PCM.PN ---
Subjective - Date & Time of Evaluation Date of Evaluation: 10/23/16 Time of Evaluation: 09:30 - Subjective Subjective: feels ok no chest pain, No SOB Objective - Vital Signs/Intake and Output Vital Signs (last 24 hours): Temp Pulse Resp BP Pulse Ox 97.4 F L 74 22 113/58 L 96 10/23/16 07:30 10/23/16 10:47 10/23/16 07:30 10/23/16 10:47 10/23/16 07:30 Intake and Output: 10/23/16 10/23/16 06:59 18:59 Intake Total 540 Output Total 2 Balance 538 - Medications Medications: Current Medications Acetaminophen (Tylenol 325mg Tab) 650 mg PO Q4H PRN PRN Reason: Pain, Mild (1-3) Last Admin: 10/21/16 10:45 Dose: 650 mg Alprazolam (Xanax) 0.25 mg PO Q6H PRN; Protocol PRN Reason: Anxiety Stop: 10/26/16 18:16 Last Admin: 10/22/16 18:44 Dose: 0.25 mg Apixaban (Eliquis) 2.5 mg PO BID [facility] PRN Reason: Protocol Last Admin: 10/23/16 10:49 Dose: 2.5 mg Arformoterol Tartrate (Brovana) 15 mcg IH [id number] [facility] Last Admin: 10/23/16 07:14 Dose: 15 mcg Atenolol (Tenormin) 25 mg PO BID [facility] Last Admin: 10/23/16 10:47 Dose: 25 mg Budesonide (Pulmicort Respules) 0.5 mg IH [id number] [facility] Last Admin: 10/23/16 07:13 Dose: 0.5 mg Furosemide (Lasix) 40 mg PO 0800,1400 [facility] Last Admin: 10/23/16 08:27 Dose: 40 mg Levalbuterol HCl (Xopenex) 0.63 mg IH [id number] PRN PRN Reason: Shortness of Breath Last Admin: 10/21/16 17:42 Dose: 0.63 mg Nystatin (Nystop Topical Powder) 1 gm TOP BID [facility] Last Admin: 10/22/16 19:41 Dose: 1 applic Ondansetron HCl (Zofran Inj) 4 mg IVP Q4H PRN PRN Reason: Nausea/Vomiting Last Admin: 10/21/16 18:07 Dose: 4 mg Pantoprazole Sodium (Protonix Ec Tab) 40 mg PO 0600 [facility] Last Admin: 10/23/16 05:48 Dose: 40 mg Petrolatum (Desitin Maximum Strength Topical 40% Oint) 0 gm TOP Q4H PRN PRN Reason: Rash Potassium Chloride (K-Dur 20 Meq Er Tab) 20 meq PO BRK [facility] Last Admin: 10/23/16 08:27 Dose: 20 meq Prednisone (Prednisone Tab) 5 mg PO DAILY [facility] Stop: 10/24/16 23:59 Last Admin: 10/23/16 10:48 Dose: 5 mg Vancomycin HCl (Vancocin 25 Mg/Ml (Oral Use)) 125 mg PO QID [facility] PRN Reason: Protocol Stop: 10/27/16 14:01 Last Admin: 10/23/16 10:46 Dose: 125 mg Verapamil HCl (Calan Tab) 80 mg PO TID [facility] Last Admin: 10/23/16 10:47 Dose: 80 mg - Labs Labs: 10/23/16 06:45 10/23/16 06:45 PT 14.7 Seconds (9.9-11.8) H 10/09/16 11:20 INR 1.36 (0.93-1.08) H 10/09/16 11:20 APTT 24.7 Seconds (23.7-30.8) 10/09/16 11:20 - Constitutional Appears: Well - Head Exam Head Exam: ATRAUMATIC - Eye Exam Eye Exam: Conjunctival injection - ENT Exam ENT Exam: Mucous Membranes Dry - Neck Exam Neck Exam: Normal Inspection - Respiratory Exam Respiratory Exam: Clear to Ausculation Bilateral - Cardiovascular Exam Cardiovascular Exam: Irregular Rhythm, REGULAR RHYTHM Assessment and Plan - Assessment and Plan (Free Text) Assessment: 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
--- NOTE | 2016-10-23 13:10 | RAD ---
HISTORY: rule out pneumonia COMPARISON: 10/13/2016 FINDINGS: LUNGS: There is mild worsening of pulmonary venous congestion. PLEURA: Moderate right and small left pleural effusions, unchanged. There is fluid in the minor fissure. CARDIOVASCULAR: There is persistent mild cardiomegaly. Atherosclerotic aortic arch calcifications are present. OSSEOUS STRUCTURES: No significant abnormalities. VISUALIZED UPPER ABDOMEN: Normal. OTHER FINDINGS: None. IMPRESSION: Worsening pulmonary venous congestion and stable moderate right and small left pleural effusions.
[2016-10-23] MEDS: Levalbuterol 0.63 MG/3 ML Inhal Soln UD IH PRN (15:03)
--- NOTE | 2016-10-23 23:18 | CP.PCM.PN ---
Subjective - Date & Time of Evaluation Date of Evaluation: 10/23/16 Time of Evaluation: 17:00 - Subjective Subjective: This is an 85Y F with PMH chronic a.fib on Eliquis, CHF, CVA x 2, COPD, HTN, HLD , c. diff who came to the ED for SOB x 2 days. today off B PAP and feels better , decrease SOB, little sleepy today,had episode of vomiting this AM Objective - Vital Signs/Intake and Output Vital Signs (last 24 hours): Temp Pulse Resp BP Pulse Ox 97.4 F L 74 22 113/58 L 96 10/23/16 07:30 10/23/16 10:47 10/23/16 07:30 10/23/16 10:47 10/23/16 07:30 Intake and Output: 10/23/16 10/24/16 18:59 06:59 Intake Total 0 Balance 0 - Medications Medications: Current Medications Acetaminophen (Tylenol 325mg Tab) 650 mg PO Q4H PRN PRN Reason: Pain, Mild (1-3) Last Admin: 10/21/16 10:45 Dose: 650 mg Alprazolam (Xanax) 0.25 mg PO Q6H PRN; Protocol PRN Reason: Anxiety Stop: 10/26/16 18:16 Last Admin: 10/22/16 18:44 Dose: 0.25 mg Apixaban (Eliquis) 2.5 mg PO BID [facility] PRN Reason: Protocol Last Admin: 10/23/16 20:49 Dose: Not Given Arformoterol Tartrate (Brovana) 15 mcg IH [id number] [facility] Last Admin: 10/23/16 19:34 Dose: 15 mcg Atenolol (Tenormin) 25 mg PO BID [facility] Last Admin: 10/23/16 20:50 Dose: Not Given Budesonide (Pulmicort Respules) 0.5 mg IH [id number] [facility] Last Admin: 10/23/16 19:34 Dose: 0.5 mg Furosemide (Lasix) 40 mg PO 0800,1400 [facility] Last Admin: 10/23/16 20:49 Dose: Not Given Levalbuterol HCl (Xopenex) 0.63 mg IH [id number] PRN PRN Reason: Shortness of Breath Last Admin: 10/23/16 15:03 Dose: 0.63 mg Nystatin (Nystop Topical Powder) 1 gm TOP BID [facility] Last Admin: 10/23/16 16:00 Dose: 1 applic Ondansetron HCl (Zofran Inj) 4 mg IVP Q4H PRN PRN Reason: Nausea/Vomiting Last Admin: 10/23/16 15:40 Dose: 4 mg Pantoprazole Sodium (Protonix Ec Tab) 40 mg PO 0600 [facility] Last Admin: 10/23/16 05:48 Dose: 40 mg Petrolatum (Desitin Maximum Strength Topical 40% Oint) 0 gm TOP Q4H PRN PRN Reason: Rash Potassium Chloride (K-Dur 20 Meq Er Tab) 20 meq PO BRK [facility] Last Admin: 10/23/16 08:27 Dose: 20 meq Prednisone (Prednisone Tab) 5 mg PO DAILY [facility] Stop: 10/24/16 23:59 Last Admin: 10/23/16 10:48 Dose: 5 mg Vancomycin HCl (Vancocin 25 Mg/Ml (Oral Use)) 125 mg PO QID [facility] PRN Reason: Protocol Stop: 10/27/16 14:01 Last Admin: 10/23/16 22:52 Dose: 125 mg Verapamil HCl (Calan Tab) 80 mg PO TID [facility] Last Admin: 10/23/16 20:49 Dose: Not Given - Labs Labs: 10/23/16 06:45 10/23/16 06:45 PT 14.7 Seconds (9.9-11.8) H 10/09/16 11:20 INR 1.36 (0.93-1.08) H 10/09/16 11:20 APTT 24.7 Seconds (23.7-30.8) 10/09/16 11:20 - Constitutional Appears: No Acute Distress - Head Exam Head Exam: ATRAUMATIC, NORMAL INSPECTION, NORMOCEPHALIC - Respiratory Exam Respiratory Exam: Rales, Rhonchi - Cardiovascular Exam Cardiovascular Exam: Irregular Rhythm - Extremities Exam Extremities Exam: Full ROM, Normal Capillary Refill, Normal Inspection. absent : Joint Swelling, Pedal Edema - Psychiatric Exam Psychiatric exam: Flat Affect Assessment and Plan (1) Diverticulitis large intestine Assessment & Plan: improve, had diarrhea today, Status: Resolved (2) Rapid atrial fibrillation Assessment & Plan: on eliquis and rate controle Status: Chronic (3) Anemia Assessment & Plan: stable Status: Chronic (4) Sleep apnea in adult Assessment & Plan: c pap while sleeping, avoid sedation Status: Acute (5) Chronic lung disease Assessment & Plan: bronchodilators Status: Acute (6) Congestive heart failure Assessment & Plan: care full with diuretics, Status: Acute - Assessment and Plan (Free Text) Assessment: presently olume
[2016-10-24] MEDS: Pantoprazole 40 mg EC Tab PO SCH (06:15)
[2016-10-24 07:06] LABS: HEMOGLOBIN 10.4 gm/dL (12.0-16.0); MEAN CELL VOLUME 86.3 fL (80.0-105.0); MEAN PLATELET VOLUME 10.2 fl (7.0-11.0); RBC 4.16 10^6/uL (3.5-6.1); RED CELL DISTRIBUTION WIDTH 21.8 % (11.5-14.5)
[2016-10-24 07:10] LABS: ALBUMIN 2.9 g/dL (3.0-4.8); CALCIUM 8.3 mg/dL (8.4-10.5)
[2016-10-24] MEDS: Arformoterol 15 mcg/2 ml Inh Sol IH SCH (07:13)
[2016-10-24] MEDS: Budesonide 0.5 mg/2 ml Inhal Susp UD IH SCH (07:14)
[2016-10-24] MEDS: Levalbuterol 0.63 MG/3 ML Inhal Soln UD IH PRN (07:14)
[2016-10-24 08:16] VITALS: RESP 20; TEMP 98.1; O2SAT 99
[2016-10-24] MEDS: Potassium Chloride 20 mEq ER Tab PO SCH (08:16)
--- NOTE | 2016-10-24 08:54 | RAD ---
HISTORY: R/O Obstruction COMPARISON: 08/12/2016 FINDINGS: BOWEL: . No obstruction. No free air. Mild stool retention BONES: Osteopenia a right L4-5 and L5-S1 facet arthrosis. Inferior right sacroiliac hypertrophic sclerosis. Right hip arthroplasty - unchanged in appearance. Left hip arthrosis OTHER FINDINGS: Atherosclerotic vascular calcifications descending abdominal aorta and distal bifurcations IMPRESSION: No obstruction
[2016-10-24] MEDS: Nystatin 100,000 Units/gm Topical Pow(15 gm) TOP SCH (10:17)
[2016-10-24 10:21] VITALS: BP 119/62; PULSE 65
--- NOTE | 2016-10-24 10:31 | CP.PCM.PN ---
<Dorothea De Jesus - Last Filed: 10/24/16 10:31> Subjective - Date & Time of Evaluation Date of Evaluation: 10/24/16 Time of Evaluation: 08:50 - Subjective Subjective: S & E at bedside, no further episode of N/V, in fact finished clear liquids, no c/o abdominal pain, had formed BM , no bleeding. No acute overnight evts. Abdominal xray was negative for obstruction or any acute findings. Objective - Vital Signs/Intake and Output Vital Signs (last 24 hours): Temp Pulse Resp BP Pulse Ox 98.1 F 65 20 119/62 99 10/24/16 07:30 10/24/16 10:18 10/24/16 07:30 10/24/16 10:18 10/24/16 07:30 Intake and Output: 10/24/16 10/24/16 06:59 18:59 Intake Total 0 Output Total 25 Balance -25 - Medications Medications: Current Medications Acetaminophen (Tylenol 325mg Tab) 650 mg PO Q4H PRN PRN Reason: Pain, Mild (1-3) Last Admin: 10/21/16 10:45 Dose: 650 mg Alprazolam (Xanax) 0.25 mg PO Q6H PRN; Protocol PRN Reason: Anxiety Stop: 10/26/16 18:16 Last Admin: 10/22/16 18:44 Dose: 0.25 mg Apixaban (Eliquis) 2.5 mg PO BID [facility] PRN Reason: Protocol Last Admin: 10/24/16 10:16 Dose: 2.5 mg Arformoterol Tartrate (Brovana) 15 mcg IH [id number] [facility] Last Admin: 10/24/16 07:13 Dose: 15 mcg Atenolol (Tenormin) 25 mg PO BID [facility] Last Admin: 10/24/16 10:18 Dose: 25 mg Budesonide (Pulmicort Respules) 0.5 mg IH [id number] [facility] Last Admin: 10/24/16 07:14 Dose: 0.5 mg Furosemide (Lasix) 40 mg PO 0800,1400 [facility] Last Admin: 10/24/16 10:16 Dose: 40 mg Levalbuterol HCl (Xopenex) 0.63 mg IH [id number] PRN PRN Reason: Shortness of Breath Last Admin: 10/24/16 07:14 Dose: 0.63 mg Nystatin (Nystop Topical Powder) 1 gm TOP BID [facility] Last Admin: 10/24/16 10:17 Dose: 1 applic Ondansetron HCl (Zofran Inj) 4 mg IVP Q4H PRN PRN Reason: Nausea/Vomiting Last Admin: 10/23/16 15:40 Dose: 4 mg Pantoprazole Sodium (Protonix Ec Tab) 40 mg PO 0600 [facility] Last Admin: 10/24/16 06:15 Dose: 40 mg Petrolatum (Desitin Maximum Strength Topical 40% Oint) 0 gm TOP Q4H PRN PRN Reason: Rash Potassium Chloride (K-Dur 20 Meq Er Tab) 20 meq PO BRK [facility] Last Admin: 10/24/16 08:16 Dose: 20 meq Prednisone (Prednisone Tab) 5 mg PO DAILY [facility] Stop: 10/24/16 23:59 Last Admin: 10/24/16 10:18 Dose: 5 mg Vancomycin HCl (Vancocin 25 Mg/Ml (Oral Use)) 125 mg PO QID [facility] PRN Reason: Protocol Stop: 10/27/16 14:01 Last Admin: 10/23/16 22:52 Dose: 125 mg Verapamil HCl (Calan Tab) 80 mg PO TID [facility] Last Admin: 10/24/16 10:15 Dose: 80 mg - Labs Labs: 10/24/16 06:30 10/24/16 06:30 PT 14.7 Seconds (9.9-11.8) H 10/09/16 11:20 INR 1.36 (0.93-1.08) H 10/09/16 11:20 APTT 24.7 Seconds (23.7-30.8) 10/09/16 11:20 - Constitutional Appears: No Acute Distress - Eye Exam Eye Exam: Normal appearance. absent: Scleral icterus - ENT Exam ENT Exam: Mucous Membranes Moist - Neck Exam Neck Exam: Normal Inspection - Respiratory Exam Respiratory Exam: Decreased Breath Sounds, NORMAL BREATHING PATTERN. absent: Rales, Wheezes, Respiratory Distress - Cardiovascular Exam Cardiovascular Exam: +S1, +S2 - GI/Abdominal Exam GI & Abdominal Exam: Soft, Normal Bowel Sounds. absent: Guarding, Tenderness, Rebound - Extremities Exam Extremities Exam: absent: Calf Tenderness, Pedal Edema - Neurological Exam Neurological Exam: Alert, Awake, Oriented x3 - Skin Skin Exam: Dry, Warm Assessment and Plan - Assessment and Plan (Free Text) Assessment: ASSESSMENT: s/p Nausea/ Vomiting, maybe secondary to gastroparesis/poor dentition Resolved Diarrhea, CDiff positive Antigen/Toxin Acute Diverticulitis, pt, no abdominal pain s/p Leukocytosis CHF Resolved Lower Ext. Cellutitis Elevated LFT/Hyperbilirubinemia, abdominal US no GB stone, CBD 3mm, maybe secondary to hepatic congestion, improving. Chronic Atrial Fibrillation CVA COPD PLAN: on clear, advance to puree diet for lunch continue PPI on Eliquis on Lasix on PO antibiotic Vancomycin on Prednisone monitor electrolytes trend LFT awaiting placement Seen and discussed with Dr. Cavazos. <Rohan Cavazos V - Last Filed: 10/24/16 22:18> Objective - Vital Signs/Intake and Output Vital Signs (last 24 hours): Temp Pulse Resp BP Pulse Ox 98.1 F 65 20 119/62 99 10/24/16 07:30 10/24/16 10:18 10/24/16 07:30 10/24/16 10:18 10/24/16 07:30 - Labs Labs: 10/24/16 06:30 10/24/16 06:30 PT 14.7 Seconds (9.9-11.8) H 10/09/16 11:20 INR 1.36 (0.93-1.08) H 10/09/16 11:20 APTT 24.7 Seconds (23.7-30.8) 10/09/16 11:20 Attending/Attestation - Attestation I have personally seen and examined this patient.: Yes I have fully participated in the care of the patient.: Yes I have reviewed all pertinent clinical information, including history, physical exam and plan: Yes Notes (Text): 10/24/16 22:16 this patient was seen and evaluated. Earlier. Patient is tolerating pured diet. Patient is edentulous would benefit from long-term pured diet or use stitches with a soft diet completed therapy for C. difficile Thank you much for allowing us to participate in the care of the patient
[2016-10-24] MEDS: Vancomycin 25 MG/ML PO SCH (10:55)
--- NOTE | 2016-10-24 10:59 | CP.PCM.PN ---
Subjective - Date & Time of Evaluation Date of Evaluation: 10/24/16 Time of Evaluation: 09:55 - Subjective Subjective: Comfortable in bed, not in distress, afebrile, no abdominal pain currently, no diarrhea. Objective - Vital Signs/Intake and Output Vital Signs (last 24 hours): Temp Pulse Resp BP Pulse Ox 98.1 F 69 20 121/64 99 10/24/16 07:30 10/24/16 07:30 10/24/16 07:30 10/24/16 07:30 10/24/16 07:30 Intake and Output: 10/24/16 10/24/16 06:59 18:59 Intake Total 0 Output Total 25 Balance -25 - Medications Medications: Current Medications Acetaminophen (Tylenol 325mg Tab) 650 mg PO Q4H PRN PRN Reason: Pain, Mild (1-3) Last Admin: 10/21/16 10:45 Dose: 650 mg Alprazolam (Xanax) 0.25 mg PO Q6H PRN; Protocol PRN Reason: Anxiety Stop: 10/26/16 18:16 Last Admin: 10/22/16 18:44 Dose: 0.25 mg Apixaban (Eliquis) 2.5 mg PO BID [facility] PRN Reason: Protocol Last Admin: 10/23/16 20:49 Dose: Not Given Arformoterol Tartrate (Brovana) 15 mcg IH [id number] [facility] Last Admin: 10/24/16 07:13 Dose: 15 mcg Atenolol (Tenormin) 25 mg PO BID [facility] Last Admin: 10/23/16 20:50 Dose: Not Given Budesonide (Pulmicort Respules) 0.5 mg IH [id number] [facility] Last Admin: 10/24/16 07:14 Dose: 0.5 mg Furosemide (Lasix) 40 mg PO 0800,1400 [facility] Last Admin: 10/23/16 20:49 Dose: Not Given Levalbuterol HCl (Xopenex) 0.63 mg IH [id number] PRN PRN Reason: Shortness of Breath Last Admin: 10/24/16 07:14 Dose: 0.63 mg Nystatin (Nystop Topical Powder) 1 gm TOP BID [facility] Last Admin: 10/23/16 16:00 Dose: 1 applic Ondansetron HCl (Zofran Inj) 4 mg IVP Q4H PRN PRN Reason: Nausea/Vomiting Last Admin: 10/23/16 15:40 Dose: 4 mg Pantoprazole Sodium (Protonix Ec Tab) 40 mg PO 0600 [facility] Last Admin: 10/24/16 06:15 Dose: 40 mg Petrolatum (Desitin Maximum Strength Topical 40% Oint) 0 gm TOP Q4H PRN PRN Reason: Rash Potassium Chloride (K-Dur 20 Meq Er Tab) 20 meq PO BRK [facility] Last Admin: 10/23/16 08:27 Dose: 20 meq Prednisone (Prednisone Tab) 5 mg PO DAILY [facility] Stop: 10/24/16 23:59 Last Admin: 10/23/16 10:48 Dose: 5 mg Vancomycin HCl (Vancocin 25 Mg/Ml (Oral Use)) 125 mg PO QID [facility] PRN Reason: Protocol Stop: 10/27/16 14:01 Last Admin: 10/23/16 22:52 Dose: 125 mg Verapamil HCl (Calan Tab) 80 mg PO TID [facility] Last Admin: 10/23/16 20:49 Dose: Not Given - Labs Labs: 10/24/16 06:30 10/24/16 06:30 PT 14.7 Seconds (9.9-11.8) H 10/09/16 11:20 INR 1.36 (0.93-1.08) H 10/09/16 11:20 APTT 24.7 Seconds (23.7-30.8) 10/09/16 11:20 - Constitutional Appears: Non-toxic, No Acute Distress - Head Exam Head Exam: NORMAL INSPECTION - Neck Exam Neck Exam: absent: Meningismus - Respiratory Exam Respiratory Exam: Decreased Breath Sounds - Cardiovascular Exam Cardiovascular Exam: +S1, +S2 - GI/Abdominal Exam GI & Abdominal Exam: Soft. absent: Tenderness Assessment and Plan - Assessment and Plan (Free Text) Plan: Assessment Acute diverticulitis and C. diff. colitis, clinically improving New onset leukocytosis, with no obvious source of new infection - patient is on low dose steroids (prednisone) history of C.diff. colitis history of E. faecalis bacteremia probably urine as the source HTN dyslipidemia S/P cerebrovascular accident chronic atrial fibrillation COPD CHF Plan completed Flagyl and Vantin (completed 8 days of IV and PO antibiotics); continue PO Vancomycin (day 8) - should have at least 14 days of PO Vancomycin Will continue to follow clinically and continue to monitor WBC count Discussed with Dr. Gilliland
--- NOTE | 2016-10-24 14:50 | CP.PCM.PN ---
Subjective - Date & Time of Evaluation Date of Evaluation: 10/24/16 Time of Evaluation: 13:00 - Subjective Subjective: This is an 85Y F with PMH chronic a.fib on Eliquis, CHF, CVA x 2, COPD, HTN, HLD , c. diff who came to the ED for SOB x 2 days. today off B PAP and feels better , decrease SOB, little sleepy today,had episode of vomiting yesterday, tolerated food well today Objective - Vital Signs/Intake and Output Vital Signs (last 24 hours): Temp Pulse Resp BP Pulse Ox 98.1 F 65 20 119/62 99 10/24/16 07:30 10/24/16 10:18 10/24/16 07:30 10/24/16 10:18 10/24/16 07:30 Intake and Output: 10/24/16 10/24/16 06:59 18:59 Intake Total 0 Output Total 25 Balance -25 - Medications Medications: Current Medications Acetaminophen (Tylenol 325mg Tab) 650 mg PO Q4H PRN PRN Reason: Pain, Mild (1-3) Last Admin: 10/21/16 10:45 Dose: 650 mg Alprazolam (Xanax) 0.25 mg PO Q6H PRN; Protocol PRN Reason: Anxiety Stop: 10/26/16 18:16 Last Admin: 10/24/16 10:54 Dose: 0.25 mg Apixaban (Eliquis) 2.5 mg PO BID [facility] PRN Reason: Protocol Last Admin: 10/24/16 10:16 Dose: 2.5 mg Arformoterol Tartrate (Brovana) 15 mcg IH [id number] [facility] Last Admin: 10/24/16 07:13 Dose: 15 mcg Atenolol (Tenormin) 25 mg PO BID [facility] Last Admin: 10/24/16 10:18 Dose: 25 mg Budesonide (Pulmicort Respules) 0.5 mg IH [id number] [facility] Last Admin: 10/24/16 07:14 Dose: 0.5 mg Furosemide (Lasix) 40 mg PO 0800,1400 [facility] Last Admin: 10/24/16 10:16 Dose: 40 mg Levalbuterol HCl (Xopenex) 0.63 mg IH [id number] PRN PRN Reason: Shortness of Breath Last Admin: 10/24/16 07:14 Dose: 0.63 mg Nystatin (Nystop Topical Powder) 1 gm TOP BID [facility] Last Admin: 10/24/16 10:17 Dose: 1 applic Ondansetron HCl (Zofran Inj) 4 mg IVP Q4H PRN PRN Reason: Nausea/Vomiting Last Admin: 10/23/16 15:40 Dose: 4 mg Pantoprazole Sodium (Protonix Ec Tab) 40 mg PO 0600 [facility] Last Admin: 10/24/16 06:15 Dose: 40 mg Petrolatum (Desitin Maximum Strength Topical 40% Oint) 0 gm TOP Q4H PRN PRN Reason: Rash Potassium Chloride (K-Dur 20 Meq Er Tab) 20 meq PO BRK [facility] Last Admin: 10/24/16 08:16 Dose: 20 meq Prednisone (Prednisone Tab) 5 mg PO DAILY [facility] Stop: 10/24/16 23:59 Last Admin: 10/24/16 10:18 Dose: 5 mg Vancomycin HCl (Vancocin 25 Mg/Ml (Oral Use)) 125 mg PO QID [facility] PRN Reason: Protocol Stop: 10/27/16 14:01 Last Admin: 10/24/16 10:55 Dose: 125 mg Verapamil HCl (Calan Tab) 80 mg PO TID [facility] Last Admin: 10/24/16 10:15 Dose: 80 mg - Labs Labs: 10/24/16 06:30 10/24/16 06:30 PT 14.7 Seconds (9.9-11.8) H 10/09/16 11:20 INR 1.36 (0.93-1.08) H 10/09/16 11:20 APTT 24.7 Seconds (23.7-30.8) 10/09/16 11:20 - Constitutional Appears: No Acute Distress - Head Exam Head Exam: ATRAUMATIC, NORMAL INSPECTION, NORMOCEPHALIC - Neck Exam Neck Exam: Full ROM, Normal Inspection. absent: Lymphadenopathy - Respiratory Exam Respiratory Exam: Rales, Rhonchi - Cardiovascular Exam Cardiovascular Exam: Irregular Rhythm - GI/Abdominal Exam GI & Abdominal Exam: Soft, Normal Bowel Sounds. absent: Tenderness - Extremities Exam Extremities Exam: Full ROM, Normal Capillary Refill, Normal Inspection. absent : Joint Swelling, Pedal Edema - Neurological Exam Neurological Exam: Alert, Awake - Psychiatric Exam Psychiatric exam: Anxious Assessment and Plan (1) Diverticulitis large intestine Assessment & Plan: stable, no diarrhea today Status: Resolved (2) Rapid atrial fibrillation Assessment & Plan: control, on beta serenity Status: Chronic (3) Anemia Assessment & Plan: followup H and H Status: Chronic (4) Sleep apnea in adult Assessment & Plan: B PAP while sleeping or if lethargic Status: Acute (5) Chronic lung disease Assessment & Plan: bronchodilators Status: Acute (6) Congestive heart failure Assessment & Plan: diuretics, avoid iv fluids Status: Acute
--- NOTE | 2016-10-24 20:50 | CP.PCM.PN ---
Subjective - Date & Time of Evaluation Date of Evaluation: 10/24/16 Time of Evaluation: 11:00 - Subjective Subjective: Patient lying flat in Bed. No Chest Pain. No SOB. No Palpitations. Objective - Vital Signs/Intake and Output Vital Signs (last 24 hours): Temp Pulse Resp BP Pulse Ox 98.1 F 65 20 119/62 99 10/24/16 07:30 10/24/16 10:18 10/24/16 07:30 10/24/16 10:18 10/24/16 07:30 - Labs Labs: 10/24/16 06:30 10/24/16 06:30 PT 14.7 Seconds (9.9-11.8) H 10/09/16 11:20 INR 1.36 (0.93-1.08) H 10/09/16 11:20 APTT 24.7 Seconds (23.7-30.8) 10/09/16 11:20 - Constitutional Appears: No Acute Distress - Head Exam Head Exam: NORMOCEPHALIC - Eye Exam Additional comments: Conjunctiva Slightly Pale. - ENT Exam ENT Exam: Mucous Membranes Moist, Normal Exam - Neck Exam Neck Exam: Normal Inspection - Respiratory Exam Respiratory Exam: NORMAL BREATHING PATTERN - Cardiovascular Exam Cardiovascular Exam: Irregular Rhythm, +S1, +S2 - GI/Abdominal Exam GI & Abdominal Exam: Soft, Normal Bowel Sounds - Exam Exam: NORMAL INSPECTION - Extremities Exam Additional comments: No Oedema Legs. Assessment and Plan (1) Congestive heart failure Status: Acute (2) Pseudomembranous colitis Status: Acute (3) Rapid atrial fibrillation Status: Chronic (4) Sepsis Status: Acute - Assessment and Plan (Free Text) Assessment: CHF Due to Systolic LV Dysfunction, MR, TR, Ch.Atrial Fibrillation, COPD, Anaemia, Renal Dysfunction. Plan: Continue Diuretics, Verapamil, Eliquis, Beta 2 Agonist.
--- NOTE | 2016-11-02 08:27 | PQF SEPSIS ---
This form is a permanent part of the medical record Dr. Xavier, ID product marketing consultant noted sepsis POA as a diagnosis. Please document in your notes if you concur, disagree, undetermined. Clarification of your documentation is requested to better reflect the severity of illness and intensity of treatment of your patient. no sepsis Indicators present [] Temp < 96.8 or > 100.4 [] WBC count > 12,000/mm3 or <000/mm3 or 10% immature neutrophils [] Heart Rate > 90 [] Respiratory Rate > 20 [] Fever or hypothermia [] Chills [] Positive blood cultures [] Hypotension [] Metabolic acidosis (Elevated lactate level, anion gap or reduced blood pH) [] Acute confusion /Altered Mental Status [] Shock [] Other: [] Location in the medical record that reflects the above clinical findings: [] Treatment Provided: [] PHYSICIAN'S RESPONSE Based on your medical judgment of the clinical indicators outlined above, are you treating this patient for a known or suspected: [] Sepsis / Septicemia Please specify organism if known [] [] SIRS (Systemic Inflammatory Response Syndrome) [] Severe Sepsis (Sepsis with Associated Organ Dysfunction) [] Fever of Unknown Origin [] Other, please indicate: [] [] If Unable to Determine, please check the box, sign and date. Present On Admission (POA) Indicator: [] Present at the time of admission [] Not present at the time of admission [] Clinically Undetermined In responding to this query, please exercise your independent professional judgment. The fact that a question is asked does not imply that any particular answer is desired or expected. Thank you for your clarification on this documentation. If you have any questions please call:[ ] * Thank you, [ ]Jacob Harp [facility] #[id number] community theater actor NAIN
== END 2016-10-24 15:24 | disposition home health service (06) | DRG 371 ==
LOC: ED 11:08 → ERH 13:29 → 2RSO 17:36 → 5RNO 10-16 12:43
PROVIDERS: ADMIT Internal Medicine Nephrology; ATTEND Internal Medicine Nephrology
PROC: 5A09557 Assistance with Respiratory Ventilation, Greater than 96 Consecutive Hours, Continuous Positive Airway Pressure (ICD-10-PCS; principal; 2016-10-11)
DX: A04.7 Enterocolitis due to Clostridium difficile (principal); I50.41 Acute combined systolic (congestive) and diastolic (congestive) heart failure; L03.115 Cellulitis of right lower limb; J44.1 Chronic obstructive pulmonary disease with (acute) exacerbation; L03.116 Cellulitis of left lower limb; K57.32 Diverticulitis of large intestine without perforation or abscess without bleeding; I11.0 Hypertensive heart disease with heart failure; I27.2 Other secondary pulmonary hypertension; I48.2 Chronic atrial fibrillation; E78.5 Hyperlipidemia, unspecified; F41.9 Anxiety disorder, unspecified; R26.9 Unspecified abnormalities of gait and mobility; E87.6 Hypokalemia; D64.9 Anemia, unspecified; G30.9 Alzheimer's disease, unspecified; F02.80 Dementia in other diseases classified elsewhere, unspecified severity, without behavioral disturbance, psychotic disturbance, mood disturbance, and anxiety; G47.30 Sleep apnea, unspecified; Z96.641 Presence of right artificial hip joint; Z66 Do not resuscitate; Z87.891 Personal history of nicotine dependence; Z79.02 Long term (current) use of antithrombotics/antiplatelets

== ENCOUNTER 2016-10-26 19:54 | Observation (INO) | payer MEDICARE, OTHER ==
[2016-10-26 19:54] VITALS: PULSE 130
[2016-10-26 20:43] LABS: BASO # 0.01 K/mm3 (0.0-2.0); BASO % 0.1 % (0.0-3.0); EOS % 0.1 % (1.5-5.0); GRAN # 13.47 (1.4-6.5); GRAN % 92.7 % (50.0-68.0); HEMOGLOBIN 10.2 gm/dL (12.0-16.0); LYMPH # 0.6 (1.2-3.4); LYMPH % 4.3 % (22.0-35.0); MEAN CELL VOLUME 86.2 fL (80.0-105.0); MEAN CORPUSCULAR HEMOGLOBIN 25.6 pg (25.0-35.0); MEAN CORPUSCULAR HGB CONC 29.7 g/dl (31.0-37.0); MONO # 0.4 (0.1-0.6); MONO % 2.8 % (1.0-6.0); PLATELET COUNT 257 10^3/uL (120.0-450.0); RBC 3.98 10^6/uL (3.5-6.1); RED CELL DISTRIBUTION WIDTH 21.8 % (11.5-14.5); WHITE BLOOD COUNT 14.5 10^3/ul (4.5-11.0)
[2016-10-26 20:48] LABS: ALBUMIN 3.2 g/dL (3.0-4.8); ALT/SGPT 60 U/L (7-56); AST/SGOT 32 U/L (15-39); BLOOD UREA NITROGEN 40 mg/dL (7-21); CALCIUM 8.3 mg/dL (8.4-10.5); GFR AFRICAN-AMERICAN > 60; GFR NON-AFRICAN AMERICAN 59; LIPASE 206 U/L (23-300)
--- NOTE | 2016-10-26 20:49 | ED PDOC ---
Arrival/HPI - General Historian: Patient, EMS EM Caveat: Dementia <Hiren Morrissey - Last Filed: 10/27/16 06:34> <Niels Batista - Last Filed: 10/27/16 09:11> - General Chief Complaint: Abdominal Pain Time Seen by Provider: 10/26/16 19:57 - History of Present Illness Narrative History of Present Illness (Text): 10/26/16 20:46 85yo female with abdominal pain for unspecified time, also patient with anxiety at home. Hx per EMS. Pt with no complaints and in no distress at this time. ( Hiren Morrissey) Past Medical History - Provider Review Nursing Documentation Reviewed: Yes - Infectious Disease Hx of Infectious Diseases: None - Tetanus Immunization Tetanus Immunization: Unknown - Cardiac Hx Congestive Heart Failure: Yes Hx Hypertension: Yes - Pulmonary Hx Chronic Obstructive Pulmonary Disease (COPD): Yes - Neurological HX Cerebrovascular Accident: Yes - HEENT Hx HEENT Disorder: Yes Hx Cataracts: Yes - Renal Hx Renal Disorder: No - Endocrine/Metabolic Hx Diabetes Mellitus Type 2: Yes - Hematological/Oncological Hx Blood Disorders: Yes Hx AIDS: No Hx Anemia: Yes - Integumentary Hx Dermatological Disorder: Yes Other/Comment: bright red buttocks/sacrum, ble redness swelling, thick hard toenails both feet , variscosities both feet - Musculoskeletal/Rheumatological Hx Arthritis: Yes - Gastrointestinal Hx Gastrointestinal Disorders: No - Genitourinary/Gynecological Hx Genitourinary Disorders: Yes Hx Urinary Tract Infection: Yes - Psychiatric Hx Psychophysiologic Disorder: Yes Hx Anxiety: Yes Hx Substance Use: No - Past Surgical History Past Surgical History: Non-Contributing - Surgical History Hx Joint Replacement: Yes (right hip) - Anesthesia Hx Anesthesia: Yes Hx Anesthesia Reactions: No Hx Malignant Hyperthermia: No - Suicidal Assessment Feels Threatened In Home Enviroment: No <Hiren Morrissey - Last Filed: 10/27/16 06:34> Family/Social History Family/Social History: Unknown Family HX Smoking Status: Former Smoker Hx Alcohol Use: No Hx Substance Use: No Hx Substance Use Treatment: No <Hiren Morrissey - Last Filed: 10/27/16 06:34> Allergies/Home Meds <Hiren Morrissey - Last Filed: 10/27/16 06:34> <Niels Batista - Last Filed: 10/27/16 09:11> Allergies/Adverse Reactions: Allergies No Known Allergies Allergy (Verified 10/09/16 11:15) Home Medications: Home Meds Medication Instructions Recorded Confirmed Unobtainable 10/26/16 10/26/16 Review of Systems - Review of Systems Systems not reviewed;Unavailable: Dementia <Hiren Morrissey - Last Filed: 10/27/16 06:34> Physical Exam - Physical Exam Physical Exam Limitations: Other (dementia) Vital Signs Reviewed: Yes Temperature: Afebrile Blood Pressure: Normal Pulse: Regular Respiratory Rate: Normal Appearance: Positive for: Well-Appearing Pain Distress: None Mental Status: No: Agitated, Lethargic - Systems Exam Head: Present: Atraumatic, Normocephalic Pupils: Present: PERRL Extroacular Muscles: Present: EOMI Conjunctiva: Present: Normal Mouth: Present: Moist Mucous Membranes. No: Dry, Drooling Neck: Present: Normal Range of Motion. No: MIDLINE TENDERNESS, Paraspinal Tenderness Respiratory/Chest: Present: Clear to Auscultation, Good Air Exchange. No: Respiratory Distress, Accessory Muscle Use Cardiovascular: Present: Irregular Rhythm, Peripheal Pulses Present. No: Tachycardic Abdomen: Present: Normal Bowel Sounds. No: Tenderness, Distention, Peritoneal Signs, Rebound, Guarding Back: Present: Normal Inspection. No: Midline Tenderness, Paraspinal Tenderness Upper Extremity: Present: Normal Inspection. No: Cyanosis, Edema Lower Extremity: Present: Normal Inspection. No: Edema Neurological: Present: GCS=15, CN II-XII Intact, Speech Normal, Motor Func Grossly Intact, Other (no focal neurological deficits) Skin: Present: Warm, Dry, Normal Color. No: Rashes Psychiatric: Present: Alert. No: Anxious, Agitated <Hiren Morrissey - Last Filed: 10/27/16 06:34> Medical Decision Making <Hiren Morrissey - Last Filed: 10/27/16 06:34> <Niels Batista - Last Filed: 10/27/16 09:11> ED Course and Treatment: 10/26/16 20:49 85yo female with abdominal pain no acute findings on PE differential includes but not limited to: UTI, dehydration, non-specific abd. pain EKG shows atrial fibrillation, 74bom, no ST-segment elevations. Interpreted by me. CT Abdomen and Pelvis Without Intravenous Contrast IMPRESSION: Small right effusion trace left effusion and minimal atelectasis and scarring at the lung bases; trace ascites in the upper abdomen no acute solid visceral abnormality; no CT findings of appendicitis or diverticulitis Additional findings as described above. Dictated and Authenticated by: Kassy Macias MD 10/26/2016 10:03 PM Eastern Time ([place] & [place]) 10/26/16 22:10 Previous records reviewed, patient was discharged from the hospital a few days ago after being diagnosed with diverticulitis, diarrhea, leukocytosis. Patient' s white count today is lower than on her previous labs. This cleared by ID be discharged home. (Hiren Morrissey) - Lab Interpretations Lab Results: 10/26/16 20:25 10/26/16 20:25 Lab Results 10/26/16 20:35: Urine Color Yellow, Urine Appearance Clear, Urine pH 6.0, Ur Specific [place] 1.010, Urine Protein Negative, Urine Glucose (UA) Negative, Urine Ketones Negative, Urine Blood Negative, Urine Nitrate Negative, Urine Bilirubin Negative, Urine Urobilinogen 0.2, Ur Leukocyte Esterase Negative 10/26/16 20:25: Sodium 138, Potassium 4.2, Chloride 100, Carbon Dioxide 29, Anion Gap 13, BUN 40 H, Creatinine 0.9, Est GFR ( Amer) > 60, Est GFR ( Non-Af Amer) 59, Random Glucose 105, Calcium 8.3 L, Total Bilirubin 1.1, AST 32 , ALT 60 H, Alkaline Phosphatase 123, Lactate Dehydrogenase 798 H, Total Creatine Kinase 26 L, Troponin I < 0.01, NT-Pro-B Natriuret Pep 3850 H, Total Protein 6.4, Albumin 3.2, Globulin 3.2, Albumin/Globulin Ratio 1.0 L, Lipase 206 10/26/16 20:25: PT 11.2, INR 1.04, APTT 24.3 10/26/16 20:25: WBC 14.5 H, RBC 3.98, Hgb 10.2 L, Hct 34.3 L, MCV 86.2, MCH 25.6 , MCHC 29.7 L, RDW 21.8 H, Plt Count 257, MPV 11.0, Gran % 92.7 H, Lymph % (Auto ) 4.3 L, [place] % (Auto) 2.8, Eos % (Auto) 0.1 L, Baso % (Auto) 0.1, Gran # 13.47 H, Lymph # 0.6 L, [place] # 0.4, Eos # 0.0, Baso # 0.01 - RAD Interpretation Radiology Orders: 10/26/16 20:10 ABD & PELVIS W/O PO OR IV CONT [CT] Stat 10/26/16 20:11 CHEST PORTABLE [RAD] Stat - Medication Orders Current Medication Orders: Discontinued Medications Nystatin (Nystop Topical Powder) 1 gm TOP STAT STA Stop: 10/27/16 03:12 Last Admin: 10/27/16 05:35 Dose: 1 g ED OBSERVATION Date of observation admission: 10/26/16 Time of observation admission: 23:52 <Hiren Morrissey - Last Filed: 10/27/16 06:34> Discharge: Yes <Niels Batista - Last Filed: 10/27/16 09:11> - Observation admission statement Patient is being placed in observation because:: abdominal pain (Hiren Morrissey) - Goals of Observation Goals of observation are:: abdominal pain workup (Hiren Morrissey) - Progress Note Progress Note: 10/26/16 23:52 pt in no distress at this time dw Dr. Xavier in detail, states pt can be dc'd home with outpatient f/u family contacted, awaiting callback 10/27/16 01:52 Patient is in no distress, no complaints at this time. Abd soft, nontender. Patient is eating without difficulty. 10/27/16 03:50 Patient is resting comfortably. 10/27/16 07:00 multiple calls made to family with no callback signed out to Dr. 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 Ambulance arrived at 9am to take patient home. Family called to inform ER staff that they were at home. (Niels Batista) Disposition/Present on Arrival - Present on Arrival Any Indicators Present on Arrival: No History of DVT/PE: No History of Uncontrolled Diabetes: No Urinary Catheter: No History of Decub. Ulcer: No History Surgical Site Infection Following: None - Disposition Have Diagnosis and Disposition been Completed?: Yes Disposition Time: 23:52 <Hiren Morrissey - Last Filed: 10/27/16 06:34> <Niels Batista - Last Filed: 10/27/16 09:11> - Disposition Diagnosis: Abdominal pain Disposition: HOME/ ROUTINE Condition: STABLE
[2016-10-26 20:50] LABS: INR 1.04 (0.93-1.08); PARTIAL THROMBOPLASTIN TIME 24.3 Seconds (23.7-30.8); PROTHROMBIN TIME 11.2 Seconds (9.9-11.8)
[2016-10-26 20:51] LABS: URINE APPEARANCE CLEAR (CLEAR); URINE BILIRUBIN NEGATIVE (NEGATIVE); URINE BLOOD NEGATIVE (NEGATIVE); URINE COLOR YELLOW (YELLOW); URINE GLUCOSE (UA) NEGATIVE (NEGATIVE); URINE LEUKOCYTE ESTERASE NEGATIVE Leu/uL (NEGATIVE); URINE NITRATE NEGATIVE (NEGATIVE); URINE PROTEIN NEGATIVE mg/dL (<30 mg/dL); URINE UROBILINOGEN 0.2 E.U./dL (<1 E.U./dL)
[2016-10-26 20:59] LABS: B-TYPE NATRIURETIC PEPTIDE 3850 pg/mL (0-450)
[2016-10-26 21:02] LABS: TROPONIN I < 0.01 ng/mL
--- NOTE | 2016-10-26 22:04 | CT ---
EXAM: CT Abdomen and Pelvis Without Intravenous Contrast CLINICAL HISTORY: 85 years old, female; Pain; Abdominal pain; Generalized; Additional info: Abd pain TECHNIQUE: Axial computed tomography images of the abdomen and pelvis without intravenous contrast. This CT exam was performed using one or more of the following dose reduction techniques: automated exposure control, adjustment of the mA and/or kV according to patient size, and/or use of iterative reconstruction technique. Coronal and sagittal reformatted images were created and reviewed. EXAM DATE/TIME: 10/26/2016 8:10 PM COMPARISON: CT - ABD PELVIS W/O PO OR IV CONT 10/09/2016 5:02:44 PM FINDINGS: Lower thorax: The heart is enlarged. There are coronary calcifications.There is calcification of the mitral annulus. There is a small right pleural effusion. There is trace left effusion. There is prominence of interstitial markings at the lung bases. There is atelectasis and scarring at the lung bases. There is elevation of the right diaphragm There is a small hiatal hernia. ABDOMEN: Liver: unremarkable Gallbladder and bile ducts: unremarkable Pancreas: Pancreas is mildly atrophic. Spleen: unremarkable Adrenals: unremarkable Kidneys and ureters: unremarkable Stomach and bowel: Stomach is partially distended. Rotation is normal. Small bowel is mildly distended with fluid. There is no obstruction. Terminal ileum is unremarkable. Appendix is unremarkable. There is moderately large amount of stool in the colon. There is descending and sigmoid colon diverticulosis. Appendix: See stomach and bowel PELVIS: Bladder: unremarkable Reproductive: Uterus is atrophic. There are calcifications in the myometrium. There are no adnexal masses ABDOMEN and PELVIS: Intraperitoneal space: There is a small amount of free fluid in the right upper quadrant adjacent to the liver. . There is no free fluid in the pelvis. There is no free air. Bones/joints: Bony structures are osteopenic.There are degenerative changes in the osseus structures. Soft tissues: unremarkable Vasculature: There are vascular calcifications. Lymph nodes: There is no pathologic adenopathy. IMPRESSION: Small right effusion trace left effusion and minimal atelectasis and scarring at the lung bases; trace ascites in the upper abdomen no acute solid visceral abnormality; no CT findings of appendicitis or diverticulitis Additional findings as described above.
[2016-10-27] MEDS ORDERED: Nystatin 100,000 Units/gm Topical Pow(15 gm) TOP STA (03:11)
--- NOTE | 2016-10-27 09:24 | CARD ---
APPROVED REPORT EKG Measurement Heart [id number] <Conclusion> Atrial fibrillation with premature ventricular or aberrantly conducted complexes Nonspecific ST and T wave abnormality, probably digitalis effect Abnormal ECG
--- NOTE | 2016-10-27 10:04 | RAD ---
HISTORY: cough COMPARISON: No prior. FINDINGS: LUNGS: The interstitial markings are increased and coarsened suggesting mild interstitial pneumonia and or mild chronic compensated pulmonary edema/CHF. There is right lower lobe of opacification which may represent some combination of atelectasis/infiltrate and effusion. PLEURA: As above. No pneumothorax apparent. CARDIOVASCULAR: Heart is mildly enlarged. OSSEOUS STRUCTURES: Mild multilevel degenerative spondylosis of the thoracic spine. VISUALIZED UPPER ABDOMEN: Normal. OTHER FINDINGS: None. IMPRESSION: The interstitial markings are increased and coarsened suggesting mild interstitial pneumonia and or mild chronic compensated pulmonary edema/CHF. There is right lower lobe of opacification which may represent some combination of atelectasis/infiltrate and effusion Cardiomegaly.
[2016-10-27 12:09] VITALS: BP 115/77; PULSE 78; RESP 19; TEMP 98; O2SAT 95
[2016-10-27 12:30] VITALS: BMI 31.6
== END 2016-10-27 09:11 | disposition home or self-care (01) ==
LOC: ED 19:54 → EROBSV 23:52
PROVIDERS: ADMIT Emergency Medicine; ATTEND Emergency Medicine
DX: R10.9 Unspecified abdominal pain (principal); I10 Essential (primary) hypertension; E11.9 Type 2 diabetes mellitus without complications; Z87.891 Personal history of nicotine dependence
CPT/HCPCS: 71010; 74176; 80053; 81003; 82550; 83615; 83690; 83880; 84484; 85025; 85610; 85730; 87040; 87086; 93005; 99285; G0378

== ENCOUNTER 2016-10-27 11:43 | Inpatient (IN) | payer MEDICARE, OTHER ==
[2016-10-27 11:43] VITALS: PULSE 130
--- NOTE | 2016-10-27 12:09 | ED PDOC ---
Arrival/HPI - General Chief Complaint: Female Genitourinary Time Seen by Provider: 10/27/16 11:49 Historian: Patient, Family - History of Present Illness Narrative History of Present Illness (Text): 10/27/16 11:55 Lisa Knutson is an 85 year old female, whose past medical history includes chronic atrial fibrillation on Eliquis, hypertension, mild dementia, hyperlipidemia, CVA (no subjective focal residual weakness), COPD, and CHF, is brought into the emergency department accompanied by a family member when complaining of urine in blood. Patient was in the ED last night / overnight for abdominal pain and was later discharged from the hospital since all findings were clear. Family member notes that while washing the patients blanket, there was evidence of blood in the urine 2 days ago. Family member also reports that today the patient had recurrence of blood in the urine. Patient denies any dysuria, chest pain, fever, chills, abdominal pain, back pain, nausea, vomiting , or any other complaints at this time. PMD: Dr. Xavier GI: Dr. Cavazos Time/Duration: Other (2 dyas ago) Symptom Onset: Sudden Symptom Course: Unchanged Activities at Onset: Rest Modifying Factors (Text): None Context: Home Associated Symptoms (Text): None Past Medical History - Provider Review Nursing Documentation Reviewed: Yes - Infectious Disease Hx of Infectious Diseases: None - Tetanus Immunization Tetanus Immunization: Unknown - Cardiac Hx Cardiac Disorders: Yes Hx Congestive Heart Failure: Yes Hx Hypertension: Yes - Pulmonary Hx Chronic Obstructive Pulmonary Disease (COPD): Yes - Neurological HX Cerebrovascular Accident: Yes - HEENT Hx HEENT Disorder: Yes Hx Cataracts: Yes - Renal Hx Renal Disorder: No - Endocrine/Metabolic Hx Diabetes Mellitus Type 2: Yes - Hematological/Oncological Hx Blood Disorders: Yes Hx AIDS: No Hx Anemia: Yes - Integumentary Hx Dermatological Disorder: Yes Other/Comment: bright red buttocks/sacrum, ble redness swelling, thick hard toenails both feet , variscosities both feet - Musculoskeletal/Rheumatological Hx Arthritis: Yes - Gastrointestinal Hx Gastrointestinal Disorders: No - Genitourinary/Gynecological Hx Genitourinary Disorders: Yes Hx Urinary Tract Infection: Yes - Psychiatric Hx Psychophysiologic Disorder: Yes Hx Anxiety: Yes Hx Substance Use: No - Past Surgical History Past Surgical History: Non-Contributing - Surgical History Hx Joint Replacement: Yes (right hip) - Anesthesia Hx Anesthesia: Yes Hx Anesthesia Reactions: No Hx Malignant Hyperthermia: No - Suicidal Assessment Feels Threatened In Home Enviroment: No Family/Social History - Physician Review Nursing Documentation Reviewed: Yes Family/Social History: Unknown Family HX Smoking Status: Former Smoker Hx Alcohol Use: No Hx Substance Use: No Hx Substance Use Treatment: No Allergies/Home Meds Allergies/Adverse Reactions: Allergies No Known Allergies Allergy (Verified 10/27/16 11:55) Home Medications: Home Meds Medication Instructions Recorded Confirmed Unobtainable 10/26/16 10/27/16 Review of Systems - Physician Review All systems were reviewed & negative as marked: Yes - Review of Systems Constitutional: Normal. absent: Fevers Eyes: Normal ENT: Normal Respiratory: Normal. absent: SOB Cardiovascular: Normal. absent: Chest Pain Gastrointestinal: Other (no more abdominal pain). absent: Diarrhea, Vomiting, Appetite Changes Genitourinary Female: Hematuria. absent: Dysuria Musculoskeletal: Normal. absent: Back Pain Skin: Rash (groin area) Neurological: Normal. absent: Headache, Dizziness Endocrine: Normal. absent: Diaphoresis Hemo/Lymphatic: Normal Psychiatric: Normal Physical Exam Vital Signs Reviewed: Yes Vital Signs Temp Pulse Resp BP Pulse Ox 10/27/16 14:06 84 16 110/60 97 10/27/16 11:54 97.9 F 84 17 110/55 L 97 Temperature: Afebrile Blood Pressure: Hypotensive Pulse: Regular Respiratory Rate: Normal Appearance: Positive for: Well-Appearing, Non-Toxic, Comfortable Pain Distress: None Mental Status: Positive for: other (alert and oriented to person only) - Systems Exam Head: Present: Atraumatic, Normocephalic Pupils: Present: PERRL Conjunctiva: Present: Normal Mouth: Present: Other (slgihtly dry mucous) Pharnyx: Present: Normal. No: ERYTHEMA, EXUDATE Neck: Present: Normal Range of Motion Respiratory/Chest: Present: Clear to Auscultation, Good Air Exchange. No: Respiratory Distress, Accessory Muscle Use Cardiovascular: Present: Regular Rate and Rhythm, Normal S1, S2. No: Murmurs Abdomen: Present: Normal Bowel Sounds. No: Tenderness, Distention, Peritoneal Signs Genitourinary/Pelvic Exam: Present: Other. No: Vaginal Bleeding (by manual exam no vaginal bleeding. Emergency Services Professional: Luh Austen) Upper Extremity: Present: Normal Inspection. No: Cyanosis, Edema Lower Extremity: Present: Normal Inspection. No: Edema Neurological: Present: GCS=15, CN II-XII Intact Skin: Present: Warm, Erythematous (dry erythematous rash in groin area) Psychiatric: Present: Alert Medical Decision Making ED Course and Treatment: 10/27/16 11:55 Impression: 85 year old female with hematuria. Differential Diagnosis included but are not limited to: hemorrhagic cystitis vs eliquis side effect Plan: -- Urinalysis -- Labs -- Reassess and disposition Progress notes: 10/27/16 15:07 Patient with gross hematuria noted. Labs with stable H/H. Urine shows large blood with TNTC WBC. Will treat for UTI but will observe further in the hospital as she is on eliquis, which may be playing a role in the hematuria. Case discussed with Dr. Ruiz, covering Dr. Xavier for observation in the hospital. - Lab Interpretations Lab Results: 10/27/16 12:45 10/27/16 13:40 Lab Results 10/27/16 14:08: Urine Color Dark yellow, Urine Appearance Sl cloudy, Urine pH 6.5, Ur Specific [place] 1.020, Urine Protein 100 H, Urine Glucose (UA) Negative , Urine Ketones Negative, Urine Blood Large H, Urine Nitrate Negative, Urine Bilirubin Small H, Urine Urobilinogen 0.2, Ur Leukocyte Esterase Negative, Urine RBC Tntc, Urine WBC 1 - 3, Ur Epithelial Cells 0 - 2 10/27/16 13:40: Sodium Cancelled, Potassium Cancelled, Chloride Cancelled, Carbon Dioxide Cancelled, Anion Gap Cancelled, BUN Cancelled, Creatinine Cancelled, Est GFR ( Amer) Cancelled, Est GFR (Non-Af Amer) Cancelled, Random Glucose Cancelled, Calcium Cancelled, Total Bilirubin Cancelled, AST Cancelled, ALT Cancelled, Alkaline Phosphatase Cancelled, Total Protein Cancelled, Albumin Cancelled, Globulin Cancelled, Albumin/Globulin Ratio Cancelled, Lipase Cancelled 10/27/16 12:45: WBC 13.7 H, RBC 4.13, Hgb 10.5 L, Hct 35.5 L, MCV 86.0, MCH 25.4 , MCHC 29.6 L, RDW 22.6 H, Plt Count 262, MPV 10.9, Gran % 74.4 H, Lymph % (Auto ) 17.4 L, [place] % (Auto) 6.9 H, Eos % (Auto) 1.1 L, Baso % (Auto) 0.2, Gran # 10.20 H, Lymph # 2.4, [place] # 1.0 H, Eos # 0.2, Baso # 0.03 I have reviewed the lab results: Yes - Medication Orders Current Medication Orders: Ceftriaxone Sodium (Rocephin 1 Gram Ivpb) 1 gm in 100 mls @ 200 mls/hr IV ONCE STA PRN Reason: Protocol Stop: 10/27/16 15:10 Last Admin: 10/27/16 14:52 Dose: 200 mls/hr - Scribe Statement The provider has reviewed the documentation as recorded by the Scribe 10/27/2016 Luh Boyce All medical record entries made by the Scribe were at my direction and personally dictated by me. I have reviewed the chart and agree that the record accurately reflects my personal performance of the history, physical exam, medical decision making, and the department course for this patient. I have also personally directed, reviewed, and agree with the discharge instructions and disposition. Disposition/Present on Arrival - Present on Arrival Any Indicators Present on Arrival: No History of DVT/PE: No History of Uncontrolled Diabetes: No Urinary Catheter: No History of Decub. Ulcer: No History Surgical Site Infection Following: None - Disposition Have Diagnosis and Disposition been Completed?: Yes Diagnosis: Hematuria Disposition: HOSPITALIZED Disposition Time: 14:40 Patient Plan: Observation Condition: FAIR
[2016-10-27 12:57] VITALS: BMI 27.4
[2016-10-27 13:15] LABS: BASO # 0.03 K/mm3 (0.0-2.0); BASO % 0.2 % (0.0-3.0); EOS # 0.2 (0.0-0.7); EOS % 1.1 % (1.5-5.0); GRAN % 74.4 % (50.0-68.0); HEMOGLOBIN 10.5 gm/dL (12.0-16.0); LYMPH # 2.4 (1.2-3.4); LYMPH % 17.4 % (22.0-35.0); MEAN CORPUSCULAR HEMOGLOBIN 25.4 pg (25.0-35.0); MEAN CORPUSCULAR HGB CONC 29.6 g/dl (31.0-37.0); MEAN PLATELET VOLUME 10.9 fl (7.0-11.0); MONO % 6.9 % (1.0-6.0); PLATELET COUNT 262 10^3/uL (120.0-450.0); RBC 4.13 10^6/uL (3.5-6.1); RED CELL DISTRIBUTION WIDTH 22.6 % (11.5-14.5); WHITE BLOOD COUNT 13.7 10^3/ul (4.5-11.0)
[2016-10-27 14:12] LABS: PH,URINE 6.5 (4.7-8.0); URINE BILIRUBIN SMALL (NEGATIVE); URINE BLOOD LARGE (NEGATIVE); URINE GLUCOSE (UA) NEGATIVE (NEGATIVE); URINE LEUKOCYTE ESTERASE NEGATIVE Leu/uL (NEGATIVE); URINE NITRATE NEGATIVE (NEGATIVE); URINE PROTEIN 100 mg/dL (<30 mg/dL); URINE UROBILINOGEN 0.2 E.U./dL (<1 E.U./dL)
[2016-10-27 14:13] LABS: URINE APPEARANCE SL CLOUDY (CLEAR); URINE COLOR DARK YELLOW (YELLOW)
[2016-10-27 14:29] LABS: URINE EPITHELIAL CELLS 0 - 2 /hpf (0-5); URINE RBC TNTC /hpf (0-2)
[2016-10-27] MEDS ORDERED: cefTRIAXone 1 gm 1 GM/100 ML BAG IV STA (14:41)
[2016-10-27 15:52] LABS: ALBUMIN 3.2 g/dL (3.0-4.8); ALT/SGPT 60 U/L (7-56); AST/SGOT 36 U/L (15-39); BLOOD UREA NITROGEN 31 mg/dL (7-21); CALCIUM 8.6 mg/dL (8.4-10.5); GFR AFRICAN-AMERICAN > 60; GFR NON-AFRICAN AMERICAN 59; LIPASE 139 U/L (23-300)
[2016-10-27] MEDS ORDERED: Pneumococcal 23-Valent Vaccine IM ONE (16:13)
[2016-10-27] MEDS ORDERED: Nystatin 100,000 Units/gm Topical Pow(15 gm) TOP SCH (18:30)
[2016-10-27] MEDS: Albuterol-Ipratrop 3 mg / 0.5 (3 ml) UD IH SCH ×2 (18:43→18:45)
[2016-10-27] MEDS: Nystatin 100,000 Units/gm Topical Pow(15 gm) TOP SCH (20:34)
[2016-10-27] MEDS: Albuterol-Ipratrop 3 mg / 0.5 (3 ml) UD IH PRN (23:35)
[2016-10-28] MEDS: Albuterol-Ipratrop 3 mg / 0.5 (3 ml) UD IH SCH ×4 (01:49→19:49)
--- NOTE | 2016-10-28 06:03 | CP.PCM.PN ---
Subjective - Date & Time of Evaluation Date of Evaluation: 10/28/16 Time of Evaluation: 06:01 - Subjective Subjective: Patient was seen by bedside.She complained of pain in both feet . Has no other complaints. Medical record was reviewed. 85 year old white woman was admitted with blood in urine, abdominal pain, has PMH of COPD, pulmoanry HTN, atrial fibrillatin, CHF, dyslipidemia, anxiety. Objective - Vital Signs/Intake and Output Vital Signs (last 24 hours): Temp Pulse Resp BP Pulse Ox 98.2 F 61 20 133/70 93 L 10/28/16 04:04 10/28/16 04:04 10/28/16 04:04 10/28/16 04:04 10/28/16 04:04 Intake and Output: 10/27/16 10/28/16 18:59 06:59 Intake Total 240 Balance 240 - Medications Medications: Current Medications Albuterol/Ipratropium (Duoneb 3 Mg/0.5 Mg (3 Ml) Ud) 3 ml IH Q2H PRN PRN Reason: Shortness of Breath Last Admin: 10/27/16 23:35 Dose: 3 ml Albuterol/Ipratropium (Duoneb 3 Mg/0.5 Mg (3 Ml) Ud) 3 ml IH [id number] TARSHA Last Admin: 10/28/16 01:49 Dose: Not Given Alprazolam (Xanax) 0.25 mg PO Q6H PRN; Protocol PRN Reason: Anxiety Stop: 11/03/16 18:31 Last Admin: 10/27/16 18:24 Dose: 0.25 mg Alprazolam (Xanax) 0.25 mg PO Q6H PRN; Protocol PRN Reason: Anxiety Stop: 11/03/16 20:06 Apixaban (Eliquis) 2.5 mg PO BID TARSHA PRN Reason: Protocol Last Admin: 10/27/16 22:05 Dose: 2.5 mg Atenolol (Tenormin) 25 mg PO DAILY TARSHA Furosemide (Lasix) 40 mg PO BID [facility] Last Admin: 10/27/16 22:05 Dose: 40 mg Ceftriaxone Sodium (Rocephin 1 Gram Ivpb) 1 gm in 100 mls @ 100 mls/hr IVPB DAILY TARSHA PRN Reason: Protocol Nystatin (Nystop Topical Powder) 15 gm TOP BID [facility] Last Admin: 10/27/16 20:34 Dose: Not Given Verapamil HCl (Calan Tab) 80 mg PO TID TARSHA - Labs Labs: 10/27/16 15:00 Lab Studies 10/27/16 10/27/16 10/27/16 Range/Units 15:00 14:08 13:40 WBC (4.5-11.0) 10^3/ul RBC (3.5-6.1) 10^6/uL Hgb (12.0-16.0) gm/dL Hct (36.0-48.0) % MCV (80.0-105.0) fL MCH (25.0-35.0) pg MCHC (31.0-37.0) g/dl RDW (11.5-14.5) % Plt Count (120.0-450.0) 10^3/uL MPV (7.0-11.0) fl Gran % (50.0-68.0) % Lymph % (Auto) (22.0-35.0) % Greer % (Auto) (1.0-6.0) % Eos % (Auto) (1.5-5.0) % Baso % (Auto) (0.0-3.0) % Gran # (1.4-6.5) Lymph # (1.2-3.4) Greer # (0.1-0.6) Eos # (0.0-0.7) Baso # (0.0-2.0) K/mm3 Sodium 142 Cancelled Potassium 3.6 Cancelled Chloride 103 Cancelled Carbon Dioxide 30 Cancelled Anion Gap 13 Cancelled BUN 31 H Cancelled Creatinine 0.9 Cancelled Est GFR ( Amer) > 60 Cancelled Est GFR (Non-Af Amer) 59 Cancelled Random Glucose 71 Cancelled Calcium 8.6 Cancelled Total Bilirubin 1.2 Cancelled AST 36 Cancelled ALT 60 H Cancelled Alkaline Phosphatase 111 Cancelled Total Protein 6.4 Cancelled Albumin 3.2 Cancelled Globulin 3.2 Cancelled Albumin/Globulin Ratio 1.0 L Cancelled Lipase 139 Cancelled Urine Color Dark yellow (YELLOW) Urine Appearance Sl cloudy (CLEAR) Urine pH 6.5 (4.7-8.0) Ur Specific [place] 1.020 (1.005-1.035) Urine Protein 100 H (<30 mg/dL) mg/dL Urine Glucose (UA) Negative (NEGATIVE) mg/dL Urine Ketones Negative (NEGATIVE) mg/dL Urine Blood Large H (NEGATIVE) Urine Nitrate Negative (NEGATIVE) Urine Bilirubin Small H (NEGATIVE) Urine Urobilinogen 0.2 (<1 E.U./dL) E.U./dL Ur Leukocyte Esterase Negative (NEGATIVE) Mouna/uL Urine RBC Tntc (0-2) /hpf Urine WBC 1 - 3 (0-6) /hpf Ur Epithelial Cells 0 - 2 (0-5) /hpf 10/27/16 Range/Units 12:45 WBC 13.7 H (4.5-11.0) 10^3/ul RBC 4.13 (3.5-6.1) 10^6/uL Hgb 10.5 L (12.0-16.0) gm/dL Hct 35.5 L (36.0-48.0) % MCV 86.0 (80.0-105.0) fL MCH 25.4 (25.0-35.0) pg MCHC 29.6 L (31.0-37.0) g/dl RDW 22.6 H (11.5-14.5) % Plt Count 262 (120.0-450.0) 10^3/uL MPV 10.9 (7.0-11.0) fl Gran % 74.4 H (50.0-68.0) % Lymph % (Auto) 17.4 L (22.0-35.0) % Greer % (Auto) 6.9 H (1.0-6.0) % Eos % (Auto) 1.1 L (1.5-5.0) % Baso % (Auto) 0.2 (0.0-3.0) % Gran # 10.20 H (1.4-6.5) Lymph # 2.4 (1.2-3.4) Greer # 1.0 H (0.1-0.6) Eos # 0.2 (0.0-0.7) Baso # 0.03 (0.0-2.0) K/mm3 Sodium Potassium Chloride Carbon Dioxide Anion Gap BUN Creatinine Est GFR ( Amer) Est GFR (Non-Af Amer) Random Glucose Calcium Total Bilirubin AST ALT Alkaline Phosphatase Total Protein Albumin Globulin Albumin/Globulin Ratio Lipase Urine Color (YELLOW) Urine Appearance (CLEAR) Urine pH (4.7-8.0) Ur Specific [place] (1.005-1.035) Urine Protein (<30 mg/dL) mg/dL Urine Glucose (UA) (NEGATIVE) mg/dL Urine Ketones (NEGATIVE) mg/dL Urine Blood (NEGATIVE) Urine Nitrate (NEGATIVE) Urine Bilirubin (NEGATIVE) Urine Urobilinogen (<1 E.U./dL) E.U./dL Ur Leukocyte Esterase (NEGATIVE) Mouna/uL Urine RBC (0-2) /hpf Urine WBC (0-6) /hpf Ur Epithelial Cells (0-5) /hpf - Constitutional Appears: Well, No Acute Distress - Head Exam Head Exam: ATRAUMATIC, NORMAL INSPECTION, NORMOCEPHALIC - Eye Exam Eye Exam: Normal appearance - ENT Exam ENT Exam: Normal External Ear Exam - Neck Exam Neck Exam: Normal Inspection - Respiratory Exam Respiratory Exam: NORMAL BREATHING PATTERN - Cardiovascular Exam Cardiovascular Exam: absent: JVD - GI/Abdominal Exam GI & Abdominal Exam: absent: Distended - Rectal Exam Rectal Exam: Deferred - Exam Additional comments: Deferred. - Extremities Exam Additional comments: Both feet examination:Good dorsalis pedis pulse present bilaterally. Skin -warm. No erythema, no swelling , no tenderness. - Back Exam Back Exam: NORMAL INSPECTION - Neurological Exam Neurological Exam: Alert, Oriented x3 - Psychiatric Exam Psychiatric exam: Normal Affect, Normal Mood - Skin Skin Exam: Normal Color Assessment and Plan - Assessment and Plan (Free Text) Assessment: Both feet pain. Hematuria. Atrial fibrillation. COPD. Pulmonary HTN. CHF. Plan: Tylenol 650 mg PO now. Continue management as per PMD.
[2016-10-28 08:01] LABS: INR 1.03 (0.93-1.08); PARTIAL THROMBOPLASTIN TIME 24.3 Seconds (23.7-30.8); PROTHROMBIN TIME 11.1 Seconds (9.9-11.8)
[2016-10-28 08:08] LABS: MEAN CELL VOLUME 86.1 fL (80.0-105.0); MEAN CORPUSCULAR HEMOGLOBIN 24.8 pg (25.0-35.0); MEAN CORPUSCULAR HGB CONC 28.8 g/dl (31.0-37.0); MEAN PLATELET VOLUME 11.4 fl (7.0-11.0); RBC 4.03 10^6/uL (3.5-6.1); RED CELL DISTRIBUTION WIDTH 22.5 % (11.5-14.5)
[2016-10-28 08:12] LABS: ALB/GLOB RATIO 1.1 (1.1-1.8); ALBUMIN 2.9 g/dL (3.0-4.8); ALT/SGPT 54 U/L (7-56); AST/SGOT 27 U/L (15-39); BLOOD UREA NITROGEN 27 mg/dL (7-21); CALCIUM 8.3 mg/dL (8.4-10.5); GFR AFRICAN-AMERICAN > 60; GFR NON-AFRICAN AMERICAN 59
[2016-10-28] MEDS ORDERED: cefTRIAXone 1 gm 1 GM/100 ML BAG IVPB SCH (10:00)
[2016-10-28] MEDS: Nystatin 100,000 Units/gm Topical Pow(15 gm) TOP SCH ×2 (10:09→17:31)
[2016-10-28] MEDS: Albuterol-Ipratrop 3 mg / 0.5 (3 ml) UD IH PRN (10:51)
--- NOTE | 2016-10-28 20:11 | HP ---
HISTORY OF PRESENT ILLNESS: The patient is 85 years old who was brought into emergency room by liliane. She was complaining of suprapubic discomfort and she was found to have blood in the urine. The patient was in the emergency room last night. She has initial workup was done, it was negative. The patient was seen by ER physician and sent home. According to family member, overnight, her abdominal pain got worse and they noted that this morning, she was found to have blood stain in her blanket and also blood in the urine, so liliane brought her to emergency room for further evaluation. She denies any pain on urination. She does have some suprapubic discomfort. No history of nausea or vomiting. No history of diarrhea. PAST MEDICAL HISTORY: Significant for; 1. Chronic AFib and she is on Eliquis for that. 2. 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 3. Mild dementia. 4. Hyperlipidemia. 5. Anxiety disorder. 6. COPD. 7. CHF. ALLERGIES: SHE IS NOT ALLERGIC TO ANY MEDICATION. MEDICATIONS AT HOME: 1. She is on verapamil 80 mg 3 times a day. 2. She is on prednisone. 3. Nystatin. 4. She is on Lasix 40 mg twice a day. 5. Atenolol 25 mg twice a day. 6. Eliquis 2.5 mg b.i.d. 7. Xanax. SOCIAL HISTORY: She used to be a heavy smoker. She lives with the family. No history of current smoking or drinking. REVIEW OF SYSTEMS: Significant for being pleasantly confused and slightly forgetful; however, can answer simple questions. PHYSICAL EXAMINATION: GENERAL: On the morning of admission, she is awake and alert, communicative, moves all extremities. VITAL SIGNS: She is afebrile. Pulse 68, respirations 20,and blood pressure 138/68. LUNGS: Bilateral fair airflow. No rhonchi or crackle. HEART: S1 and S2 audible. ABDOMEN: Soft and nontender. No hepatosplenomegaly. NEUROLOGIC: The patient is awake and alert, and somewhat forgetful. LABORATORY DATA: WBC is 13.7, hemoglobin 10.5, hematocrit 35, and platelet of 62. Chemistry; sodium 142, potassium 3.6, chloride 103, CO2 30, BUN 31, creatinine 0.9, and blood sugar of 71. ALT is 60. Urine shows large blood and small bilirubin. Leukocyte negative. IMAGING: X-ray chest is unremarkable except she has interstitial marking that are increased and suggest mild interstitial pneumonia. CT scan of the abdomen and pelvis shows mild right pleural effusion, left effusion, and minimal atelectasis, and scarring. ASSESSMENT: 1. Hematuria, could be secondary to anticoagulant, rule out underlying cystitis or urinary tract infection. 2. Chronic atrial fibrillation. 3. Hypertension. 4. Mild dementia. 5. Chronic obstructive pulmonary disease. 6. History of smoking in the past. 7. Anxiety disorder. PLAN: I will continue the patient on usual medication. Her blood cultures and urine cultures are sent. We will given her a dose of Rocephin and urology consult by Dr. Clayton has been requested. We will restart her on Eliquis since she is in AFib. We will follow up her electrolytes, CBC and CMP in a.m. Venessa Ruiz MD
[2016-10-29] MEDS: Albuterol-Ipratrop 3 mg / 0.5 (3 ml) UD IH SCH ×5 (02:19→19:20)
--- NOTE | 2016-10-29 04:32 | PN ---
SUBJECTIVE: The patient is 85 years old, seen and examined, seems to be anxious. According to nurse, still has hematuria. PHYSICAL EXAMINATION: VITAL SIGNS: Patient is afebrile, pulse 70, respirations 22, blood pressure 110/69. LUNGS: Bilateral fair airflow. No rhonchi or crackle. HEART: S1, S2, audible. ABDOMEN: Soft. No suprapubic discomfort. No costophrenic angle discomfort. Otherwise, abdomen is benign, no rebound, no guarding. NEUROLOGIC: Patient is awake and alert, communicative. LABORATORY DATA: WBC is 11, hemoglobin 10, hematocrit 34.7, platelets 246,000. Chemistry; sodium 135, potassium 3.7, chloride 99, CO2 of 28, BUN 27, creatinine 0.9, blood sugar 74, procalcitonin is 0.05. Urine cultures are negative. ASSESSMENT: 1. Hematuria, probably secondary to anticoagulant. 2. Chronic atrial fibrillation. 3. Hypertension. 4. Dementia with agitation. PLAN: I will hold Eliquis for now. We will watch her for further hematuria, and we will give a small dose of Risperdal because she seems to be very agitated, increasing Xanax will make her more confused and her procalcitonin is negative. I will discontinue Rocephin after today's dose since her urine cultures are also negative. Venessa Ruiz MD
[2016-10-29 07:22] LABS: BASO # 0.05 K/mm3 (0.0-2.0); BASO % 0.4 % (0.0-3.0); EOS # 0.2 (0.0-0.7); EOS % 1.5 % (1.5-5.0); GRAN # 9.24 (1.4-6.5); GRAN % 74.3 % (50.0-68.0); HEMOGLOBIN 9.9 gm/dL (12.0-16.0); LYMPH # 2.2 (1.2-3.4); LYMPH % 17.8 % (22.0-35.0); MEAN CORPUSCULAR HEMOGLOBIN 25.6 pg (25.0-35.0); MEAN CORPUSCULAR HGB CONC 30.2 g/dl (31.0-37.0); MEAN PLATELET VOLUME 10.4 fl (7.0-11.0); MONO # 0.8 (0.1-0.6); PLATELET COUNT 221 10^3/uL (120.0-450.0); RBC 3.86 10^6/uL (3.5-6.1); RED CELL DISTRIBUTION WIDTH 22.5 % (11.5-14.5); WHITE BLOOD COUNT 12.4 10^3/ul (4.5-11.0)
[2016-10-29 07:51] LABS: ALBUMIN 2.8 g/dL (3.0-4.8); ALT/SGPT 46 U/L (7-56); AST/SGOT 20 U/L (15-39); BLOOD UREA NITROGEN 27 mg/dL (7-21); CALCIUM 8.6 mg/dL (8.4-10.5); GFR AFRICAN-AMERICAN > 60; GFR NON-AFRICAN AMERICAN 59
--- NOTE | 2016-10-29 08:05 | PCM.URO ---
Urology Progress Note - Objective Lab Results Last 24 Hours: Laboratory Results - last 24 hr 10/28/16 10/28/16 10/28/16 06:45 06:45 06:45 WBC 11.0 RBC 4.03 Hgb 10.0 L Hct 34.7 L MCV 86.1 MCH 24.8 L MCHC 28.8 L RDW 22.5 H Plt Count 246 MPV 11.4 H Gran % Lymph % (Auto) [place] % (Auto) Eos % (Auto) Baso % (Auto) Gran # Lymph # Trigg # Eos # Baso # PT 11.1 INR 1.03 APTT 24.3 Sodium 135 Potassium 3.7 Chloride 99 Carbon Dioxide 28 Anion Gap 12 BUN 27 H Creatinine 0.9 Est GFR ( Amer) > 60 Est GFR (Non-Af Amer) 59 Random Glucose 74 Calcium 8.3 L Total Bilirubin 0.9 AST 27 ALT 54 Alkaline Phosphatase 99 Total Protein 5.6 L Albumin 2.9 L Globulin 2.7 Albumin/Globulin Ratio 1.1 Procalcitonin 10/28/16 10/29/16 10/29/16 10:40 06:45 06:45 WBC 12.4 H RBC 3.86 Hgb 9.9 L Hct 32.8 L MCV 85.0 MCH 25.6 MCHC 30.2 L RDW 22.5 H Plt Count 221 MPV 10.4 Gran % 74.3 H Lymph % (Auto) 17.8 L Trigg % (Auto) 6.0 Eos % (Auto) 1.5 Baso % (Auto) 0.4 Gran # 9.24 H Lymph # 2.2 Trigg # 0.8 H Eos # 0.2 Baso # 0.05 PT INR APTT Sodium 137 Potassium 3.8 Chloride 99 Carbon Dioxide 30 Anion Gap 12 BUN 27 H Creatinine 0.9 Est GFR ( Amer) > 60 Est GFR (Non-Af Amer) 59 Random Glucose 85 Calcium 8.6 Total Bilirubin 0.8 AST 20 ALT 46 Alkaline Phosphatase 96 Total Protein 5.6 L Albumin 2.8 L Globulin 2.7 Albumin/Globulin Ratio 1.0 L Procalcitonin 0.05 L Intake & Output: Intake & Output 10/28/16 10/29/16 10/29/16 18:59 06:59 18:59 Intake Total 640 520 Balance 640 520 Intake: Oral 640 520 Other: # Voids Urine, Voided 4 2 # Bowel Movements 4 0 Vital Signs: Vital Signs - 24 hr 10/28/16 10/28/16 10/28/16 10:08 10:18 10:27 Temperature Pulse Rate 53 L 53 L Respiratory Rate Blood Pressure 125/71 106/55 L 106/45 L O2 Sat by Pulse Oximetry 10/28/16 10/28/16 10/28/16 14:48 17:05 17:30 Temperature 97.3 F L Pulse Rate 80 78 78 Respiratory 22 Rate Blood Pressure 114/56 L 110/69 110/69 O2 Sat by Pulse 98 Oximetry 10/28/16 10/29/16 10/29/16 17:31 03:15 07:34 Temperature 98.3 F Pulse Rate 69 76 Respiratory 20 Rate Blood Pressure 110/69 130/64 119/62 O2 Sat by Pulse 96 Oximetry
[2016-10-29] MEDS: Nystatin 100,000 Units/gm Topical Pow(15 gm) TOP SCH ×2 (09:46→17:05)
[2016-10-30] MEDS: Albuterol-Ipratrop 3 mg / 0.5 (3 ml) UD IH SCH ×4 (01:41→19:50)
--- NOTE | 2016-10-30 06:54 | PN ---
DATE: 10/29/2016 SUBJECTIVE: The patient has no complaints of any chest pain. No shortness of breath, headaches, or dizziness. OBJECTIVE: VITAL SIGNS: Temperature is 98.1, pulse is 76, and blood pressure is 107/55. HEENT: Anicteric sclerae. Moist mucosa. No oral lesions. NECK: No JVD, adenopathy, or thyromegaly. CARDIOVASCULAR: S1 and S2, irregular. No murmurs, rubs, or gallops. RESPIRATORY: Clear to auscultation with bilateral air entry. No wheezes or rales. ABDOMEN: Bowel sounds are soft, nontender, and nondistended. EXTREMITIES: Lower extremity trace edema. Full range of motion. LABORATORY DATA: White blood cell 12.4, hemoglobin 9.9, and creatinine 0.9. IMPRESSION: 1. Hematuria. 2. Atrial fibrillation, the patient's anticoagulation is on hold. 3. Hypertension. 4. Dementia, Alzheimer's type. 5. Chronic obstructive pulmonary disease. 6. Anxiety. 7. DO NOT RESUSCITATE/DO NOT INTUBATE. PLAN: The patient is currently on verapamil for her atrial fibrillation. She is on Apixaban for her anticoagulation. The patient's risperidone is going to be continued, on Tylenol. She is on Xanax as needed. She has a renal ultrasound. She had been followed by Dr. Clayton. We will wait further input. The patient does not seem to have any more hematuria. Hematuria may be secondary to anticoagulation. The patient's urine culture has been negative. Tommie Xavier MD
--- NOTE | 2016-10-30 10:39 | US ---
PROCEDURE: Ultrasound of the Kidneys HISTORY: hematuria COMPARISON: And pelvis CT dated 10/26/2016. TECHNIQUE: Sonogram of the kidneys. FINDINGS: RIGHT KIDNEY: Measures: 9.4 x 4.6 x 4.5 cm cm. Normal in size and contour, however, there is a moderate loss of differentiation of the corticomedullary echotexture which may indicate an element intrinsic medical renal disease. No stone, solid mass lesion or hydronephrosis visualized. LEFT KIDNEY: Measures: 9.8 x 4.2 x 3.6 cm cm. Normal in size and contour, however, there is a moderate loss of differentiation of the corticomedullary echotexture which may indicate an element intrinsic medical renal disease. No stone, solid mass lesion or hydronephrosis visualized. OTHER FINDINGS: None. IMPRESSION: Potential intrinsic medical renal disease. No obstructive uropathy, cystic solid renal parenchymal mass or perinephric fluid collections encounter. No urolithiasis is appreciated.
[2016-10-30] MEDS: Nystatin 100,000 Units/gm Topical Pow(15 gm) TOP SCH ×2 (11:15→18:22)
--- NOTE | 2016-10-30 13:43 | PN ---
DATE: 10/30/2016 SUBJECTIVE: The patient has no complaints of any headaches or dizziness. No nausea. PHYSICAL EXAMINATION VITAL SIGNS: Temperature is 98.1, pulse is 76, blood pressure is 107/55 and respirations are 18. HEENT: Anicteric sclerae. Moist mucosa. NECK: No JVD, adenopathy, or thyromegaly. LUNGS: Clear to auscultation bilaterally. No wheezes, rales, or rhonchi. CARDIOVASCULAR: S1 and S2 regular. No murmurs, rubs, or gallops. ABDOMEN: Bowel sounds are positive. Soft, nontender and nondistended. EXTREMITIES: Lower extremity; no edema. Full range of motion. LABORATORY DATA: White count of 12.4 and hemoglobin of 9.9. Creatinine is 0.9. ASSESSMENT: 1. Hematuria. 2. Atrial fibrillation, on anticoagulation at home. 3. Dementia, Alzheimer's type. 4. Dyslipidemia. 5. Anxiety disorder. 6. Chronic obstructive pulmonary disease. 7. Do not resuscitate/do not intubate. PLAN: The patient is currently comfortable. She is going to continue with her verapamil for her atrial fibrillation. She is on Lasix daily. She is going to continue risperidone. She is on nystatin for rash. She is on Xanax as needed. She had a renal ultrasound that had been obtained by Dr. Clayton. She is ready for long-term care, but she has no subacute days left. She is not doing well at home because of poor social support. The patient's son works. She has been readmitted after being recently discharged. Tommie Xavier MD
[2016-10-31 07:14] LABS: BASO # 0.05 K/mm3 (0.0-2.0); BASO % 0.4 % (0.0-3.0); EOS # 0.2 (0.0-0.7); EOS % 1.9 % (1.5-5.0); GRAN # 9.74 (1.4-6.5); GRAN % 76.7 % (50.0-68.0); HEMOGLOBIN 10.6 gm/dL (12.0-16.0); LYMPH # 1.9 (1.2-3.4); MEAN CELL VOLUME 85.5 fL (80.0-105.0); MEAN CORPUSCULAR HEMOGLOBIN 25.6 pg (25.0-35.0); MEAN CORPUSCULAR HGB CONC 29.9 g/dl (31.0-37.0); MEAN PLATELET VOLUME 11.1 fl (7.0-11.0); MONO # 0.8 (0.1-0.6); PLATELET COUNT 249 10^3/uL (120.0-450.0); RBC 4.14 10^6/uL (3.5-6.1); RED CELL DISTRIBUTION WIDTH 22.4 % (11.5-14.5); WHITE BLOOD COUNT 12.7 10^3/ul (4.5-11.0)
[2016-10-31 07:32] LABS: ALB/GLOB RATIO 1.1 (1.1-1.8); ALBUMIN 3.3 g/dL (3.0-4.8); ALT/SGPT 45 U/L (7-56); AST/SGOT 24 U/L (15-39); BLOOD UREA NITROGEN 27 mg/dL (7-21); CALCIUM 8.6 mg/dL (8.4-10.5); GFR AFRICAN-AMERICAN > 60; GFR NON-AFRICAN AMERICAN 59; MAGNESIUM 1.9 mg/dL (1.7-2.2)
[2016-10-31] MEDS ORDERED: cefTRIAXone (Rocephin) 1 gm Inj ONE (09:45)
[2016-10-31] MEDS ORDERED: Iohexol 240 (50 ml) ONE (09:45)
[2016-10-31] MEDS ORDERED: Propofol 10 mg/ml Inj (20 ML) ONE (09:55)
[2016-10-31] MEDS ORDERED: Lidocaine 2% Inj (20ml) ONE (09:56)
[2016-10-31] MEDS ORDERED: Lidocaine 2% Jelly (Uro-Jet) ONE (10:04)
[2016-10-31] MEDS: Nystatin 100,000 Units/gm Topical Pow(15 gm) TOP SCH ×2 (10:31→17:26)
[2016-10-31] MEDS ORDERED: Lactated Ringer's 1,000 ML IV SCH (10:41)
--- NOTE | 2016-10-31 11:42 | PN ---
SUBJECTIVE: The patient has no complaints of any headaches or dizziness. No nausea. PHYSICAL EXAMINATION: VITAL SIGNS: Temperature is 97.3, pulse of 77, blood pressure is 118/52, and respiration is 20. HEENT: Anicteric sclerae. Moist mucosa. NECK: No JVD, adenopathy or thyromegaly. CARDIOVASCULAR: S1 and S2 is irregular. No murmurs or rubs. LUNGS: Good bilateral air entry. No wheezes, rales, or rhonchi. ABDOMEN: Bowel sounds are positive, soft, and nontender. EXTREMITIES: Lower extremity; no edema. LABORATORY DATA: Labs have been reviewed. ASSESSMENT: 1. Hematuria, improved. 2. Atrial fibrillation, on anticoagulation. 3. Dementia, Alzheimer's type. 4. Dyslipidemia. 5. Anxiety disorder. 6. Chronic obstructive pulmonary disease. 7. Edema/do not intubate. PLAN: The patient is currently comfortable. She had renal ultrasound done, which shows potential intrinsic medical renal disease, no obstructive uropathy, masses, or perinephric reflection. The patient is on Xanax as needed. She is going to continue with atenolol. The patient gets risperidone. She is on Lasix daily. She is on Nystatin cream. She is on nebulizer treatments. She is going for cystoscopy today. She is continuing on Eliquis. Eliquis is on hold. She does not have hematuria. Tommie Xavier MD
--- NOTE | 2016-10-31 11:46 | CP.PCM.PCO ---
Physician Communication Note - Physician Communication Note Physician Communication Note: pt was at the cystoscopy, meds adjusted, d/w RN, - agitation + restlessness
--- NOTE | 2016-10-31 13:36 | RAD ---
PROCEDURE: Retrograde pyelogram HISTORY: HEMATURIA COMPARISON: TECHNIQUE: Fluoroscopy was provided in the operating room. 4.3 seconds of fluoro time. Two images were submitted FINDINGS: Both renal collecting systems and proximal ureters are unremarkable with no filling defects. IMPRESSION: As above
[2016-10-31] MEDS ORDERED: Potassium Chloride 20 mEq ER Tab PO ONE (15:09)
--- NOTE | 2016-10-31 22:03 | CON ---
DATE: 10/29/2016 REASON FOR CONSULTATION: Gross hematuria. HISTORY OF PRESENT ILLNESS: Ms. Knutson is a very pleasant 85-year-old lady under the care of Dr. De Guzman who presents with gross hematuria. History is most recent in the chart. No history of known bladder cancers or renal cancers. No history of trauma that we can assess. By the present of the gross hematuria with an indwelling catheter, currently intubates. Urology is consulted. See the plan listed below. PAST MEDICAL AND SURGICAL HISTORY: Significant and listed on the chart. MEDICATIONS: Including blood thinners are also noted. REVIEW OF SYSTEMS: Listed above. PHYSICAL EXAMINATION: GENERAL: A female in no apparent distress. She is calm and resting comfortably. ABDOMEN: Relatively soft. Not grossly distended. No abdominal distention. The Garcia catheter is noted. RECTAL AND PELVIC: Deferred. LABORATORY DATA: See chart. Hemoglobin and hematocrit all noted. BUN and creatinine noted. DIAGNOSIS: Gross hematuria. PLAN: We need upper tract workups and lower tract workups. We will plan for a ultrasound, CT scan and then for a cystoscopy, cytology and then further plans we will follow. We will discuss the timing and discuss the use of anticoagulation. Tarun Clayton MD
--- NOTE | 2016-11-01 08:59 | OP ---
PROCEDURE DATE: 10/31/2016 PREOPERATIVE DIAGNOSES: Gross hematuria and voiding dysfunction. POSTOPERATIVE DIAGNOSES: Gross hematuria, voiding dysfunction, and bladder tumors, multiple. PROCEDURE PERFORMED: Exam under anesthesia, cystoscopy, bilateral retrograde pyelograms, bladder biopsy and fulguration. SURGEON: Tarun Clayton MD FINDINGS: The patient had little bladder tumors, multiple; all appearing superficial and relatively low grade, whether these are inverted papillomas or whether they are TCCs. Multiple pictures were taken and saved or it is a mixture of both. Did not look to be any aggressive lesions. There is clear efflux from both the left and right and bilateral retrograde pyelograms are normal. Examination under anesthesia revealed a somewhat patulous urethra, but no obvious abnormalities. There was no fixed masses. No bladder fixation. Otherwise, unremarkable exam. INDICATIONS: Brief history and physical reviewed as well as the consultations, the consult from me from 10/19/2016. The patient presented with gross hematuria and urology was consulted and she is here now for a cystoscopy. See the previously dictated note from 10/29. Discussed options, risks, benefits, and alternatives, even though with a history of being on a blood thinner, still our recommendation is for the above procedure. ESTIMATED BLOOD LOSS: Less than 10 mL. COMPLICATIONS: None. SPECIMEN: Bladder biopsy. DESCRIPTION OF PROCEDURE: After obtaining informed consent from both the patient, but also from her son, Monty by phone consent, the patient was brought to the OR and placed on table. Routine monitors placed, time-out was called to confirmed patient's positioning, antibiotics given, *------*. The patient placed in lithotomy *------* urethra and I noted good amount of blood with some clots. It took a little while even to clear everything. We just irrigated it out until it cleared up. Then, on the patient's *------* screen, there were little polyp lesions and then if you followed around, there were several of them, they were multiple, and they were just along the floor, not near the ureteral orifice, not obstructing anything. What we did now is we gently took a little bite and then fulgurated as best as we could and then also anything that looked red like it was the source of the bleeding, we just fulgurated very gently, very gently. It looked to me like a very weakened bladder. There was some trabeculation, but it was just not a very strong bladder. At this point, we had cleared most of the bleeding and I inserted a Garcia catheter via urethra (again as we will be attempting to use a medication, maybe a dose or 2 of mitomycin once we get some pathology). We placed a 24-Czech Garcia catheter. She tolerated the procedure without complications. Later discussed options with the patient's son, Dr. *------*. Standard medical treatment would be for repeat TURBT with little deep anesthesia. This was just done with sedation, but that would take some deeper work and I am concerned with her bladder, that it is a little bit of a weakened bladder, but that is the standard recommendation and then next, we can consider medical therapy, maybe something like mitomycin, but actually, lets see what the pathology shows. Tarun Clayton MD
[2016-11-01 09:28] LABS: HEMOGLOBIN 11.2 gm/dL (12.0-16.0); MEAN CELL VOLUME 86.9 fL (80.0-105.0); MEAN CORPUSCULAR HEMOGLOBIN 26.1 pg (25.0-35.0); MEAN PLATELET VOLUME 11.3 fl (7.0-11.0); RBC 4.29 10^6/uL (3.5-6.1); RED CELL DISTRIBUTION WIDTH 23.6 % (11.5-14.5); WHITE BLOOD COUNT 9.6 10^3/ul (4.5-11.0)
[2016-11-01 09:54] LABS: CALCIUM 8.9 mg/dL (8.4-10.5); MAGNESIUM 1.9 mg/dL (1.7-2.2)
[2016-11-01] MEDS: Nystatin 100,000 Units/gm Topical Pow(15 gm) TOP SCH ×2 (10:00→18:00)
--- NOTE | 2016-11-01 16:34 | CP.PCM.CON ---
History of Present Illness - History of Present Illness History of Present Illness: patient was admitted on the medical side for evaluation of hematuria, AMS, some psych consult was called for evaluation of agitation, restless behavior, this financial underwriter changed meds yesterday, pt was not seen yesterday because she was at the cystoscopy, this financial underwriter attempted to speak to the patient today, patient is deeply sleeping was able to open her eyes said that she is feeling fine. At the same time patient fell back asleep again. Collaterals from the nursing staff, patient is less agitated, more directable, tolerated Seroquel better. Vital signs reviewed, labs reviewed, medications reviewed. Primary care physician Dr. Senior was called, left a message. Impression: Most likely patient has delirium on dementia Multiple medical issues please see Dr. Senior notes for more detailed information. Plan: Continue Seroquel as of now Continue current management Patient is much calmer, less agitated xanax, last dose was 10/30/16 Dr. Senior was called and left a message This financial underwriter will attempt to speak to the patient tomorrow. Past Patient History - Infectious Disease Hx of Infectious Diseases: None - Tetanus Immunizations Tetanus Immunization: Unknown - Past Medical History & Family History Past Medical History?: Yes - Past Social History Smoking Status: Former Smoker - CARDIAC Hx Cardiac Disorders: Yes Hx Cardia Arrhythmia: Yes (a fib) Hx Congestive Heart Failure: Yes Hx Hypercholesterolemia: Yes Hx Hypertension: Yes Hx Peripheral Edema: Yes (ble+1) Other/Comment: variscosities both feet - PULMONARY Hx Chronic Obstructive Pulmonary Disease (COPD): Yes Hx Emphysema: Yes Hx Pneumonia: Yes - NEUROLOGICAL HX Cerebrovascular Accident: Yes Hx Dementia: Yes - HEENT Hx HEENT Problems: Yes Hx Cataracts: Yes - RENAL Hx Chronic Kidney Disease: No - ENDOCRINE/METABOLIC Hx Diabetes Mellitus Type 2: Yes - HEMATOLOGICAL/ONCOLOGICAL Hx Blood Disorders: Yes Hx AIDS: No Hx Anemia: Yes - INTEGUMENTARY Hx Dermatological Problems: Yes Other/Comment: bright red buttocks/sacrum, ble slight redness, thick hard toenails both feet , variscosities both feet, eccymotic areas both arms, small bruises both knees, left forehead small 0.02cm scab - MUSCULOSKELETAL/RHEUMATOLOGICAL Hx Musculoskeletal Disorders: Yes - GASTROINTESTINAL Hx Gastrointestinal Disorders: Yes (hx c dif) - GENITOURINARY/GYNECOLOGICAL Hx Genitourinary Disorders: Yes Hx Hematuria: Yes Hx Incontinence: Yes Hx Urinary Tract Infection: Yes - PSYCHIATRIC Hx Emotional Abuse: No Hx Physical Abuse: No Hx Substance Use: No - SURGICAL HISTORY Hx Surgeries: Yes - ANESTHESIA Hx Anesthesia Reactions: No Hx Malignant Hyperthermia: No Meds Allergies/Adverse Reactions: Allergies Allergy/AdvReac Type Severity Reaction Status Date / Time No Known Allergies Allergy Verified 10/27/16 11:55 - Medications Medications: Current Medications Acetaminophen (Tylenol 325mg Tab) 650 mg PO Q4H PRN PRN Reason: Pain, moderate (4-7) Last Admin: 10/31/16 22:16 Dose: 650 mg Albuterol/Ipratropium (Duoneb 3 Mg/0.5 Mg (3 Ml) Ud) 3 ml IH Q2H PRN PRN Reason: Shortness of Breath Last Admin: 10/28/16 10:51 Dose: 3 ml Alprazolam (Xanax) 0.25 mg PO Q4H PRN; Protocol PRN Reason: Anxiety Stop: 11/04/16 10:46 Last Admin: 10/31/16 16:04 Dose: 0.25 mg Apixaban (Eliquis) 2.5 mg PO BID [facility] PRN Reason: Protocol Last Admin: 10/28/16 17:30 Dose: 2.5 mg Atenolol (Tenormin) 25 mg PO DAILY [facility] Last Admin: 11/01/16 09:55 Dose: 25 mg Furosemide (Lasix) 40 mg PO BID [facility] Last Admin: 11/01/16 09:55 Dose: Not Given Nystatin (Nystop Topical Powder) 15 gm TOP BID [facility] Last Admin: 10/31/16 17:26 Dose: 1 applic Quetiapine Fumarate (Seroquel) 25 mg PO BID [facility] PRN Reason: Protocol Last Admin: 11/01/16 09:56 Dose: 25 mg Quetiapine Fumarate (Seroquel) 25 mg PO HS [facility] PRN Reason: Protocol Last Admin: 10/31/16 22:13 Dose: 25 mg Verapamil HCl (Calan Tab) 80 mg PO TID [facility] Last Admin: 11/01/16 09:55 Dose: 80 mg Ziprasidone (Geodon Inj) 10 mg IM Q12H PRN; Protocol PRN Reason: severe agitation Results - Vital Signs Recent Vital Signs: Last Vital Signs Temp 98.2 F 11/01/16 07:30 Pulse 67 11/01/16 07:30 Resp 18 11/01/16 07:30 BP 116/45 L 11/01/16 09:55 Pulse Ox 94 L 11/01/16 07:30 - Labs Result Diagrams: 11/01/16 09:10 11/01/16 09:10 Labs: Laboratory Results - last 24 hr 11/01/16 11/01/16 09:10 09:10 WBC 9.6 D RBC 4.29 Hgb 11.2 L Hct 37.3 MCV 86.9 MCH 26.1 MCHC 30.0 L RDW 23.6 H Plt Count 234 MPV 11.3 H Sodium 139 Potassium 3.5 L Chloride 104 Carbon Dioxide 26 Anion Gap 13 BUN 29 H Creatinine 1.1 Est GFR ( Amer) 57 Est GFR (Non-Af Amer) 47 Random Glucose 116 H Calcium 8.9 Magnesium 1.9
[2016-11-02 08:34] LABS: HEMOGLOBIN 10.8 gm/dL (12.0-16.0); MEAN CELL VOLUME 85.2 fL (80.0-105.0); MEAN CORPUSCULAR HEMOGLOBIN 26.2 pg (25.0-35.0); MEAN CORPUSCULAR HGB CONC 30.8 g/dl (31.0-37.0); RBC 4.12 10^6/uL (3.5-6.1); RED CELL DISTRIBUTION WIDTH 22.3 % (11.5-14.5); WHITE BLOOD COUNT 9.6 10^3/ul (4.5-11.0)
[2016-11-02 08:45] LABS: BLOOD UREA NITROGEN 31 mg/dL (7-21); CALCIUM 8.9 mg/dL (8.4-10.5); GFR AFRICAN-AMERICAN > 60; GFR NON-AFRICAN AMERICAN 52
--- NOTE | 2016-11-02 09:18 | CP.PCM.CON ---
History of Present Illness - History of Present Illness History of Present Illness: patient was admitted on the medical side for evaluation of hematuria, AMS, some psych consult was called for evaluation of agitation, restless behavior, this data analyst report writer changed meds, attempted to speak to the patient yesterday, patient was deeply sleeping was able to open her eyes said that she is feeling fine. pt was followed up today, as per staff pt slept all night, more pleasant, no periods of agitation, much improved. pt was seen and examined today, pt presented to be alert, calm, cooperative, pt was mumbling some repetitive words like "doctor, doctor, doctor", it was no option to have a meaningful conversation, at the same time pt was observed eating independently, seems to have good appetite. pt tolerated Seroquel better than Risperdal, will continue with seroquel. Vital signs reviewed, labs reviewed, medications reviewed. Primary care physician Dr. Senior was called, left a message. MSE: pt alert, confused, speech was incoherent, mood: "doctor, doctor", affect: flat, thought process is disorganized, thought content: pt is confused, no signs of agitation, was not able to answer if pt has thoughts of harming self or others, but pt is calm, I/J are grossly impaired, impulses are better controlled. Impression: Most likely patient has delirium on dementia Multiple medical issues please see Dr. Senior notes for more detailed information. Plan: Continue Seroquel as of now Continue current management Patient is much calmer, less agitated xanax, last dose was 10/30/16 Dr. Senior was called and left a message this data analyst report writer will sign off should you have any questions, reconsult as needed, is covering for this weekend. thank you very much for letting me to participate in care of your pt. Past Patient History - Infectious Disease Hx of Infectious Diseases: None - Tetanus Immunizations Tetanus Immunization: Unknown - Past Medical History & Family History Past Medical History?: Yes - Past Social History Smoking Status: Former Smoker - CARDIAC Hx Cardiac Disorders: Yes Hx Cardia Arrhythmia: Yes (a fib) Hx Congestive Heart Failure: Yes Hx Hypercholesterolemia: Yes Hx Hypertension: Yes Hx Peripheral Edema: Yes (ble+1) Other/Comment: variscosities both feet - PULMONARY Hx Chronic Obstructive Pulmonary Disease (COPD): Yes Hx Emphysema: Yes Hx Pneumonia: Yes - NEUROLOGICAL HX Cerebrovascular Accident: Yes Hx Dementia: Yes - HEENT Hx HEENT Problems: Yes Hx Cataracts: Yes - RENAL Hx Chronic Kidney Disease: No - ENDOCRINE/METABOLIC Hx Diabetes Mellitus Type 2: Yes - HEMATOLOGICAL/ONCOLOGICAL Hx Blood Disorders: Yes Hx AIDS: No Hx Anemia: Yes - INTEGUMENTARY Hx Dermatological Problems: Yes Other/Comment: bright red buttocks/sacrum, ble slight redness, thick hard toenails both feet , variscosities both feet, eccymotic areas both arms, small bruises both knees, left forehead small 0.02cm scab - MUSCULOSKELETAL/RHEUMATOLOGICAL Hx Musculoskeletal Disorders: Yes - GASTROINTESTINAL Hx Gastrointestinal Disorders: Yes (hx c dif) - GENITOURINARY/GYNECOLOGICAL Hx Genitourinary Disorders: Yes Hx Hematuria: Yes Hx Incontinence: Yes Hx Urinary Tract Infection: Yes - PSYCHIATRIC Hx Emotional Abuse: No Hx Physical Abuse: No Hx Substance Use: No - SURGICAL HISTORY Hx Surgeries: Yes - ANESTHESIA Hx Anesthesia Reactions: No Hx Malignant Hyperthermia: No Meds Allergies/Adverse Reactions: Allergies Allergy/AdvReac Type Severity Reaction Status Date / Time No Known Allergies Allergy Verified 10/27/16 11:55 - Medications Medications: Current Medications Acetaminophen (Tylenol 325mg Tab) 650 mg PO Q4H PRN PRN Reason: Pain, moderate (4-7) Last Admin: 10/31/16 22:16 Dose: 650 mg Albuterol/Ipratropium (Duoneb 3 Mg/0.5 Mg (3 Ml) Ud) 3 ml IH Q2H PRN PRN Reason: Shortness of Breath Last Admin: 10/28/16 10:51 Dose: 3 ml Alprazolam (Xanax) 0.25 mg PO Q4H PRN; Protocol PRN Reason: Anxiety Stop: 11/04/16 10:46 Last Admin: 10/31/16 16:04 Dose: 0.25 mg Apixaban (Eliquis) 2.5 mg PO BID [facility] PRN Reason: Protocol Last Admin: 10/28/16 17:30 Dose: 2.5 mg Atenolol (Tenormin) 25 mg PO DAILY [facility] Last Admin: 11/01/16 09:55 Dose: 25 mg Furosemide (Lasix) 40 mg PO BID [facility] Last Admin: 11/01/16 17:53 Dose: 40 mg Nystatin (Nystop Topical Powder) 15 gm TOP BID [facility] Last Admin: 11/01/16 18:00 Dose: 1 applic Quetiapine Fumarate (Seroquel) 25 mg PO BID [facility] PRN Reason: Protocol Last Admin: 11/01/16 17:53 Dose: 25 mg Quetiapine Fumarate (Seroquel) 25 mg PO HS [facility] PRN Reason: Protocol Last Admin: 11/01/16 21:12 Dose: 25 mg Verapamil HCl (Calan Tab) 80 mg PO TID [facility] Last Admin: 11/01/16 17:56 Dose: 80 mg Ziprasidone (Geodon Inj) 10 mg IM Q12H PRN; Protocol PRN Reason: severe agitation Results - Vital Signs Recent Vital Signs: Last Vital Signs Temp 98.2 F 11/02/16 07:42 Pulse 63 11/02/16 07:42 Resp 16 11/02/16 07:42 BP 120/61 11/02/16 07:42 Pulse Ox 97 11/02/16 07:42 - Labs Result Diagrams: 11/02/16 08:30 11/02/16 08:30 Labs: Laboratory Results - last 24 hr 11/01/16 11/01/16 11/02/16 09:10 09:10 08:30 WBC 9.6 D 9.6 RBC 4.29 4.12 Hgb 11.2 L 10.8 L Hct 37.3 35.1 L MCV 86.9 85.2 MCH 26.1 26.2 MCHC 30.0 L 30.8 L RDW 23.6 H 22.3 H Plt Count 234 261 MPV 11.3 H 11.0 Sodium 139 Potassium 3.5 L Chloride 104 Carbon Dioxide 26 Anion Gap 13 BUN 29 H Creatinine 1.1 Est GFR ( Amer) 57 Est GFR (Non-Af Amer) 47 Random Glucose 116 H Calcium 8.9 Magnesium 1.9 11/02/16 08:30 WBC RBC Hgb Hct MCV MCH MCHC RDW Plt Count MPV Sodium 141 Potassium 3.5 L Chloride 104 Carbon Dioxide 29 Anion Gap 12 BUN 31 H Creatinine 1.0 Est GFR ( Amer) > 60 Est GFR (Non-Af Amer) 52 Random Glucose 87 Calcium 8.9 Magnesium
[2016-11-02] MEDS: Nystatin 100,000 Units/gm Topical Pow(15 gm) TOP SCH ×2 (09:53→17:52)
[2016-11-02] MEDS ORDERED: Potassium Chloride 20 mEq ER Tab PO ONE (10:51)
--- NOTE | 2016-11-02 13:41 | PN ---
DATE: 11/02/2016 HISTORY OF PRESENT ILLNESS: Ms. Knutson is an 85-year-old female admitted to the hospital with hematuria. She has prior history of chronic atrial fibrillation, on anticoagulation with Eliquis. She also has hypertension, dementia. No CVA, no respiratory weakness, CHF has been stable in the recent past. She underwent cystoscopic biopsy of the bladder, which showed low-grade papillary urothelial cancer, noninvasive. She also has anemia with hemoglobin of 10 g/dL and leukocytosis with elevated white count. White count has declined since the admission. PAST MEDICAL HISTORY: 1. CVA. 2. Atrial fibrillation, on anticoagulation. 3. Hypertension. 4. CHF. 5. COPD. 6. Hematuria. 7. Anemia. PAST SURGICAL HISTORY: Right hip replacement. PERSONAL HISTORY: Former smoker. No history of alcohol abuse. SOCIAL HISTORY: Lives at home. FAMILY HISTORY: No positive family history. Mother and father noncontributory. ALLERGIES: No known drug allergies. CURRENT MEDICATIONS: Tylenol 650 q.4 hour p.r.n., Duoneb p.r.n., Xanax 0.25 mg q.4 hour p.r.n., and Eliquis 2.5 mg p.o. b.i.d., atenolol 25 mg daily, Lasix 40 mg b.i.d., Seroquel 25 mg p.o. q. h.s., Verapamil 80 mg t.i.d., Geodon 10 mg IM q. 12 hour p.r.n. LABORATORY DATA: White count 12.4 declined to 9.6, hemoglobin 10.8. CBC 9.9, platelet count to 61. Sodium 141, potassium 3.5, creatinine 1, calcium 8.9, AST 24, ALT 45, alkaline phosphatase 105. ASSESSMENT: 1. Newly diagnosed low-grade papillary urothelial cancer, noninvasive. 2. Hematuria, resolved. 3. Atrial fibrillation, on anticoagulation. 4. Anxiety. 5. Chronic obstructive pulmonary disease. 6. Anemia. 7. Leukocytosis. PLAN: Hematuria resolved. She has low-grade papillary carcinoma. Dr. Clayton, urology following. No invasive cancer. Management as per Dr. Clayton. She might benefit from Bacillus Calmette-Janell instillation. Comfort care also might be a reasonable option. Continue anticoagulation with eliquis 2.5 mg p.o. b.i.d. for atrial fibrillation. Blood pressure controlled on current medications. Psych evaluated her. She is also on Verapamil 80 mg t.i.d., continue that. Seroquel and Geodon was started. We will continue to monitor blood counts. Samra Flynn MD MTDD
[2016-11-03] MEDS: Nystatin 100,000 Units/gm Topical Pow(15 gm) TOP SCH ×2 (10:49→17:44)
[2016-11-04 07:56] LABS: ALBUMIN 2.9 g/dL (3.0-4.8); ALT/SGPT 34 U/L (7-56); AST/SGOT 26 U/L (15-39); BLOOD UREA NITROGEN 30 mg/dL (7-21); CALCIUM 8.5 mg/dL (8.4-10.5); GFR AFRICAN-AMERICAN > 60; GFR NON-AFRICAN AMERICAN 52
[2016-11-04] MEDS: Nystatin 100,000 Units/gm Topical Pow(15 gm) TOP SCH ×2 (13:40→18:48)
--- NOTE | 2016-11-04 22:07 | CP.PCM.PN ---
Subjective - Date & Time of Evaluation Date of Evaluation: 11/03/16 Time of Evaluation: 11:00 - Subjective Subjective: DATE: 11/03/2016 HISTORY OF PRESENT ILLNESS: Ms. Knutson is an 85-year-old female admitted to the hospital with hematuria. She has prior history of chronic atrial fibrillation, on anticoagulation with Eliquis. She also has hypertension, dementia. No CVA, no respiratory weakness, CHF has been stable in the recent past. She underwent cystoscopic biopsy of the bladder, which showed low-grade papillary urothelial cancer, noninvasive. She also has anemia with hemoglobin of 10 g/dL and leukocytosis with elevated white count. White count has declined since the admission. She has episodes of agitation and screaming for help. She is being followed by psych. denies pain. PAST MEDICAL HISTORY: 1. CVA. 2. Atrial fibrillation, on anticoagulation. 3. Hypertension. 4. CHF. 5. COPD. 6. Hematuria. 7. Anemia. PAST SURGICAL HISTORY: Right hip replacement. PERSONAL HISTORY: Former smoker. No history of alcohol abuse. SOCIAL HISTORY: Lives at home. FAMILY HISTORY: No positive family history. Mother and father noncontributory. ALLERGIES: No known drug allergies. CURRENT MEDICATIONS: Tylenol 650 q.4 hour p.r.n., Duoneb p.r.n., Xanax 0.25 mg q.4 hour p.r.n., and Eliquis 2.5 mg p.o. b.i.d., atenolol 25 mg daily, Lasix 40 mg b.i.d., Seroquel 25 mg p.o. q. h.s., Verapamil 80 mg t.i.d., Geodon 10 mg IM q. 12 hour p.r.n. LABORATORY DATA: reviewed. ASSESSMENT: 1. Newly diagnosed low-grade papillary urothelial cancer, noninvasive. 2. Hematuria, resolved. 3. Atrial fibrillation, on anticoagulation. 4. Anxiety. 5. Chronic obstructive pulmonary disease. 6. Anemia. 7. Leukocytosis. PLAN: Hematuria resolved. She has low-grade papillary carcinoma. Dr. Clayton, urology following. No invasive cancer. Management as per Dr. Clayton. 2. Continue anticoagulation with eliquis 2.5 mg p.o. b.i.d. for atrial fibrillation. 3. Blood pressure controlled on current medications. 4. Agitation : Psych evaluated her. Geodon prn . Xanax prn. 5. CV : stable. Samra Flynn MD Objective - Vital Signs/Intake and Output Vital Signs (last 24 hours): Temp Pulse Resp BP Pulse Ox 97.5 F L 79 22 92/62 L 98 11/04/16 16:14 11/04/16 18:46 11/04/16 16:14 11/04/16 18:51 11/04/16 11:50 Intake and Output: 11/04/16 11/05/16 18:59 06:59 Intake Total 640 420 Output Total 500 Balance 140 420 - Medications Medications: Current Medications Acetaminophen (Tylenol 325mg Tab) 650 mg PO Q4H PRN PRN Reason: Pain, moderate (4-7) Last Admin: 11/04/16 12:31 Dose: 650 mg Albuterol/Ipratropium (Duoneb 3 Mg/0.5 Mg (3 Ml) Ud) 3 ml IH Q2H PRN PRN Reason: Shortness of Breath Last Admin: 10/28/16 10:51 Dose: 3 ml Alprazolam (Xanax) 0.25 mg PO Q6 PRN; Protocol PRN Reason: Agitation Stop: 11/11/16 18:01 Last Admin: 11/04/16 13:35 Dose: 0.25 mg Apixaban (Eliquis) 2.5 mg PO BID [facility] PRN Reason: Protocol Last Admin: 11/04/16 18:48 Dose: 2.5 mg Atenolol (Tenormin) 25 mg PO DAILY [facility] Last Admin: 11/04/16 09:57 Dose: 25 mg Furosemide (Lasix) 40 mg PO BID [facility] Last Admin: 11/04/16 18:51 Dose: Not Given Nystatin (Nystop Topical Powder) 15 gm TOP BID [facility] Last Admin: 11/04/16 18:48 Dose: 1 applic Quetiapine Fumarate (Seroquel) 25 mg PO BID [facility] PRN Reason: Protocol Last Admin: 11/04/16 18:48 Dose: 25 mg Quetiapine Fumarate (Seroquel) 25 mg PO HS [facility] PRN Reason: Protocol Last Admin: 11/04/16 21:24 Dose: 25 mg Verapamil HCl (Calan Tab) 80 mg PO TID [facility] Last Admin: 11/04/16 18:46 Dose: Not Given Ziprasidone (Geodon Inj) 10 mg IM Q12H PRN; Protocol PRN Reason: severe agitation - Labs Labs: 11/02/16 08:30 11/04/16 06:30 PT 11.1 Seconds (9.9-11.8) 10/28/16 06:45 INR 1.03 (0.93-1.08) 10/28/16 06:45 APTT 24.3 Seconds (23.7-30.8) 10/28/16 06:45
--- NOTE | 2016-11-04 22:11 | CP.PCM.PN ---
Subjective - Date & Time of Evaluation Date of Evaluation: 11/04/16 Time of Evaluation: 11:00 - Subjective Subjective: Ms. Knutson is an 85-year-old female admitted to the hospital with hematuria. She has prior history of chronic atrial fibrillation, on anticoagulation with Eliquis. She also has hypertension, dementia. No CVA, no respiratory weakness, CHF has been stable in the recent past. She underwent cystoscopic biopsy of the bladder, which showed low-grade papillary urothelial cancer, noninvasive. She also has anemia with hemoglobin of 10 g/dL and leukocytosis with elevated white count. White count has declined since the admission. She has episodes of agitation and screaming for help. She is complaining of pain in lower extremity. She is restless, agitated now. Objective - Vital Signs/Intake and Output Vital Signs (last 24 hours): Temp Pulse Resp BP Pulse Ox 97.5 F L 79 22 92/62 L 98 11/04/16 16:14 11/04/16 18:46 11/04/16 16:14 11/04/16 18:51 11/04/16 11:50 Intake and Output: 11/04/16 11/05/16 18:59 06:59 Intake Total 640 420 Output Total 500 Balance 140 420 - Medications Medications: Current Medications Acetaminophen (Tylenol 325mg Tab) 650 mg PO Q4H PRN PRN Reason: Pain, moderate (4-7) Last Admin: 11/04/16 12:31 Dose: 650 mg Albuterol/Ipratropium (Duoneb 3 Mg/0.5 Mg (3 Ml) Ud) 3 ml IH Q2H PRN PRN Reason: Shortness of Breath Last Admin: 10/28/16 10:51 Dose: 3 ml Alprazolam (Xanax) 0.25 mg PO Q6 PRN; Protocol PRN Reason: Agitation Stop: 11/11/16 18:01 Last Admin: 11/04/16 13:35 Dose: 0.25 mg Apixaban (Eliquis) 2.5 mg PO BID [facility] PRN Reason: Protocol Last Admin: 11/04/16 18:48 Dose: 2.5 mg Atenolol (Tenormin) 25 mg PO DAILY [facility] Last Admin: 11/04/16 09:57 Dose: 25 mg Furosemide (Lasix) 40 mg PO BID [facility] Last Admin: 11/04/16 18:51 Dose: Not Given Nystatin (Nystop Topical Powder) 15 gm TOP BID [facility] Last Admin: 11/04/16 18:48 Dose: 1 applic Quetiapine Fumarate (Seroquel) 25 mg PO BID [facility] PRN Reason: Protocol Last Admin: 11/04/16 18:48 Dose: 25 mg Quetiapine Fumarate (Seroquel) 25 mg PO HS [facility] PRN Reason: Protocol Last Admin: 11/04/16 21:24 Dose: 25 mg Verapamil HCl (Calan Tab) 80 mg PO TID [facility] Last Admin: 11/04/16 18:46 Dose: Not Given Ziprasidone (Geodon Inj) 10 mg IM Q12H PRN; Protocol PRN Reason: severe agitation - Labs Labs: 11/02/16 08:30 11/04/16 06:30 PT 11.1 Seconds (9.9-11.8) 10/28/16 06:45 INR 1.03 (0.93-1.08) 10/28/16 06:45 APTT 24.3 Seconds (23.7-30.8) 10/28/16 06:45 - Constitutional Appears: Confused, Chronically Ill - Head Exam Head Exam: ATRAUMATIC, NORMAL INSPECTION, NORMOCEPHALIC - Eye Exam Eye Exam: Normal appearance Pupil Exam: NORMAL ACCOMODATION - ENT Exam ENT Exam: Mucous Membranes Moist, Normal Exam - Neck Exam Neck Exam: Normal Inspection - Respiratory Exam Respiratory Exam: Clear to Ausculation Bilateral, NORMAL BREATHING PATTERN - Cardiovascular Exam Cardiovascular Exam: REGULAR RHYTHM, +S1, +S2 - GI/Abdominal Exam GI & Abdominal Exam: Normal Bowel Sounds - Back Exam Back Exam: NORMAL INSPECTION - Neurological Exam Neurological Exam: Alert, Awake, Normal Gait, Oriented x3 - Psychiatric Exam Psychiatric exam: Agitated, Anxious - Skin Skin Exam: Normal Color, Warm Assessment and Plan - Assessment and Plan (Free Text) Assessment: ASSESSMENT: 1. Newly diagnosed low-grade papillary urothelial cancer, noninvasive. 2. Hematuria, resolved. 3. Atrial fibrillation, on anticoagulation. 4. Anxiety. 5. Chronic obstructive pulmonary disease. 6. Anemia. 7. Leukocytosis. PLAN: 1. Hematuria resolved. She has low-grade papillary carcinoma. Dr. Clayton, urology following. No invasive cancer. Management as per Dr. Clayton. Garcia draining clear urine. 2. Continue anticoagulation with eliquis 2.5 mg p.o. b.i.d. for atrial fibrillation. 3. Blood pressure controlled on current medications. 4. Agitation : Psych evaluated her. Geodon prn . Xanax prn. 5. CV : stable. 6. Leukocytosis : resolving. Samra Flynn MD
[2016-11-05 07:11] LABS: BASO # 0.04 K/mm3 (0.0-2.0); BASO % 0.4 % (0.0-3.0); EOS # 0.2 (0.0-0.7); EOS % 1.9 % (1.5-5.0); GRAN # 7.16 (1.4-6.5); GRAN % 80.4 % (50.0-68.0); HEMOGLOBIN 9.5 gm/dL (12.0-16.0); LYMPH # 1.1 (1.2-3.4); LYMPH % 12.3 % (22.0-35.0); MEAN CELL VOLUME 85.2 fL (80.0-105.0); MEAN CORPUSCULAR HEMOGLOBIN 25.6 pg (25.0-35.0); MEAN CORPUSCULAR HGB CONC 30.1 g/dl (31.0-37.0); MEAN PLATELET VOLUME 10.9 fl (7.0-11.0); MONO # 0.5 (0.1-0.6); PLATELET COUNT 286 10^3/uL (120.0-450.0); RBC 3.71 10^6/uL (3.5-6.1); WHITE BLOOD COUNT 8.9 10^3/ul (4.5-11.0)
[2016-11-05 07:51] LABS: ALT/SGPT 35 U/L (7-56); AST/SGOT 25 U/L (15-39); BLOOD UREA NITROGEN 28 mg/dL (7-21); CALCIUM 8.6 mg/dL (8.4-10.5); GFR AFRICAN-AMERICAN > 60; GFR NON-AFRICAN AMERICAN 52
[2016-11-05] MEDS: Nystatin 100,000 Units/gm Topical Pow(15 gm) TOP SCH ×2 (09:31→17:23)
[2016-11-05] MEDS ORDERED: Potassium Chloride 20 mEq ER Tab PO ONE (09:42)
--- NOTE | 2016-11-06 04:15 | PN ---
DATE: 11/05/2016 SUBJECTIVE: The patient has no complaints of any chest pain or shortness of breath. She was agitated. She was seen by me this morning. PHYSICAL EXAMINATION: VITAL SIGNS: Temperature is 97.9, pulse of 67, blood pressure is 100/50 and respirations 18. HEENT: Anicteric sclerae. Moist mucosa. NECK: No JVD, adenopathy or thyromegaly. CARDIOVASCULAR: S1 and S2. No murmurs, rubs or gallops. ABDOMEN: Bowel sounds are positive, soft, nontender and nondistended. EXTREMITIES: Lower extremities; no cyanosis, clubbing or edema. LUNGS: Good bilateral air entry. No wheezes, rales or rhonchi. LABORATORY DATA: White count is 8.9, potassium 3.4. ASSESSMENT: 1. Delirium. 2. Do not resuscitate/do not intubate. 3. Atrial fibrillation. 4. Chronic obstructive pulmonary disease. 5. Anemia. 6. Hematuria. 7. Low-grade papillary urothelial cancer. PLAN: The patient has low grade papillary carcinoma. We will await input from Dr. Clayton regarding management. The patient is on Eliquis for anticoagulation. She is going to continue with Seroquel, given additional dose of Xanax, decreasing nystatin. She is going to continue . She is on BiPAP. Tommie Xavier MD
--- NOTE | 2016-11-06 10:43 | CP.PCM.PN ---
Subjective - Date & Time of Evaluation Date of Evaluation: 11/06/16 Time of Evaluation: 05:00 - Subjective Subjective: Patient was seen at bedside because she was screaming.As per nurse , she received xanax po at 2.39 AM. When I asked her if she knew where she was , she said that she was in the hospital.Rest of the time she kept on screaming for help. Was not able to get review of systems. Medical record was reviewed. This 85 year old white woman was admitted with hematuria. She has PMH of CVA, HTN, HLD, atrial fibrillation, mild dementia, COPD, CHF. Objective - Vital Signs/Intake and Output Vital Signs (last 24 hours): Temp Pulse Resp BP Pulse Ox 98.2 F 102 H 24 130/48 L 98 11/06/16 07:30 11/06/16 07:30 11/06/16 07:30 11/06/16 07:30 11/06/16 07:30 Intake and Output: 11/06/16 11/06/16 06:59 18:59 Intake Total 780 Output Total 600 Balance 180 - Medications Medications: Current Medications Acetaminophen (Tylenol 325mg Tab) 650 mg PO Q4H PRN PRN Reason: Pain, moderate (4-7) Last Admin: 11/04/16 12:31 Dose: 650 mg Albuterol/Ipratropium (Duoneb 3 Mg/0.5 Mg (3 Ml) Ud) 3 ml IH Q2H PRN PRN Reason: Shortness of Breath Last Admin: 10/28/16 10:51 Dose: 3 ml Alprazolam (Xanax) 0.5 mg PO Q6H PRN; Protocol PRN Reason: Anxiety Last Admin: 11/06/16 02:39 Dose: 0.5 mg Apixaban (Eliquis) 2.5 mg PO BID [facility] PRN Reason: Protocol Last Admin: 11/05/16 17:22 Dose: 2.5 mg Atenolol (Tenormin) 25 mg PO DAILY [facility] Last Admin: 11/05/16 09:30 Dose: 25 mg Furosemide (Lasix) 40 mg PO BID [facility] Last Admin: 11/05/16 17:23 Dose: Not Given Nystatin (Nystop Topical Powder) 15 gm TOP BID [facility] Last Admin: 11/05/16 17:23 Dose: 1 applic Quetiapine Fumarate (Seroquel) 25 mg PO BID [facility] PRN Reason: Protocol Last Admin: 11/05/16 17:22 Dose: 25 mg Quetiapine Fumarate (Seroquel) 25 mg PO HS [facility] PRN Reason: Protocol Last Admin: 11/05/16 21:25 Dose: 25 mg Verapamil HCl (Calan Tab) 80 mg PO TID [facility]AR[facility] Last Admin: 11/05/16 17:22 Dose: Not Given Ziprasidone (Geodon Inj) 10 mg IM Q12H PRN; Protocol PRN Reason: severe agitation - Labs Labs: 11/05/16 06:50 11/05/16 06:50 PT 11.1 Seconds (9.9-11.8) 10/28/16 06:45 INR 1.03 (0.93-1.08) 10/28/16 06:45 APTT 24.3 Seconds (23.7-30.8) 10/28/16 06:45 - Constitutional Appears: Well, No Acute Distress - Head Exam Head Exam: ATRAUMATIC, NORMAL INSPECTION, NORMOCEPHALIC - Eye Exam Eye Exam: Normal appearance - ENT Exam ENT Exam: Normal External Ear Exam - Neck Exam Neck Exam: Normal Inspection - Respiratory Exam Respiratory Exam: NORMAL BREATHING PATTERN - Cardiovascular Exam Cardiovascular Exam: absent: JVD - GI/Abdominal Exam GI & Abdominal Exam: absent: Distended - Rectal Exam Rectal Exam: Deferred - Exam Additional comments: Deferred. - Extremities Exam Additional comments: Unable to elevate left upper extremity at shoulder on command.Tried to lift up left arm with her right hand. - Back Exam Back Exam: NORMAL INSPECTION - Neurological Exam Neurological Exam: Altered - Psychiatric Exam Psychiatric exam: Agitated Additional comments: Screaming periodically for help. - Skin Skin Exam: Normal Color Assessment and Plan - Assessment and Plan (Free Text) Assessment: Agitation. HTN. HLD. Mild dementia. COPD. CHF. CVA hx. Plan: Xanax 0.25 mg PO stat. Continue present management. Discussed with .
--- NOTE | 2016-11-06 11:53 | PN ---
DATE: 11/06/2016 SUBJECTIVE: The patient has no complaints of any chest pain or shortness of breath. She was agitated overnight. She required extra Xanax. PHYSICAL EXAMINATION: VITAL SIGNS: Temperature is 97.9, pulse of 67, blood pressure is 100/58, and respirations are 18. HEENT: Anicteric sclerae. Moist mucosa. NECK: No JVD, adenopathy, or thyromegaly. CARDIOVASCULAR: S1 and S2 is regular. No murmurs, rubs, or gallops. LUNGS: Good bilateral air entry. No wheezes, rales, or rhonchi. ABDOMEN: Bowel sounds are positive, soft , nontender, and nondistended. No hepatosplenomegaly. EXTREMITIES: Low extremity; no cyanosis, clubbing, or edema. LABORATORY DATA: No new labs. ASSESSMENT: 1. Delirium. 2. Atrial fibrillation. 3. Chronic obstructive pulmonary disease. 4. Anemia. 5. Hematuria. 6. Low-grade bladder tumor. 7. DO NOT RESUSCITATE/DO NOT INTUBATE. PLAN: I spoke with Dr. Clayton regarding the case. The patient is also seen by Dr. Flynn. The patient may need intervention because she develops hematuria secondary to her bladder tumor. She needs to be on Eliquis for her atrial fibrillation. She is having hematuria overnight, so I will hold her Eliquis today. She is on nystatin powder. She is on Lasix daily. She is on Seroquel, I have asked to reevaluate her medication because she does get agitated and is difficulty to manage. There is also barriers and discharging planing because Medicaid application is not completed and she needs to be in a long-term care facility. Tommie Xavier MD
--- NOTE | 2016-11-06 14:37 | PCM.URO ---
Urology Progress Note - Objective Intake & Output: Intake & Output 11/05/16 11/06/16 11/06/16 18:59 06:59 18:59 Intake Total 480 780 640 Output Total 500 600 500 Balance -20 180 140 Weight 134 lb 14.4 oz Intake: Oral 480 780 640 Output: Urine 500 600 500 Urethral (Garcia) 500 600 500 Other: Voiding Method Indwelling Catheter # Bowel Movements 2 1 1 Vital Signs: Vital Signs - 24 hr 11/05/16 11/05/16 11/05/16 16:00 17:22 17:23 Temperature 97.9 F Pulse Rate 67 Respiratory 18 Rate Blood Pressure 106/64 100/58 L 100/58 L O2 Sat by Pulse 98 Oximetry 11/06/16 07:30 Temperature 98.2 F Pulse Rate 102 H Respiratory 24 Rate Blood Pressure 130/48 L O2 Sat by Pulse 98 Oximetry
[2016-11-06] MEDS: Nystatin 100,000 Units/gm Topical Pow(15 gm) TOP SCH ×2 (14:39→17:18)
--- NOTE | 2016-11-06 16:37 | CP.PCM.CON ---
History of Present Illness - History of Present Illness History of Present Illness: follow-up note: Primary care physician asked this health underwriter to her reevaluated this patient because patient seems to be restless, agitated, screaming nonstop. patient was admitted on the medical side for evaluation of hematuria, AMS, some psych consult was called for evaluation of agitation, restless behavior, this health underwriter changed meds, attempted to speak to the patient yesterday, patient was deeply sleeping was able to open her eyes said that she is feeling fine. pt was followed up today, as per staff pt Is screaming out loud, medication only effective for 1 hour maximum, patient is very confused, does not know where she is, he shouldn't has poor appetite and sleep. pt was seen and examined today, pt presented to be alert, was screaming, when was asked what is going on pt said "my son, my son", said that she lives with son and last time he visited pt was two days ago, after that pt again started to scream, but pt is not restless. this health underwriter will increase seroquel, ativan will be increased. Vital signs reviewed, labs reviewed, medications reviewed. Primary care physician Dr. Senior ased to reevaluate pt. MSE: pt alert, confused, speech was incoherent, mood: "my son, my son....", affect: flat, thought process is disorganized, thought content: pt is confused, no signs of agitation, was not able to answer if pt has thoughts of harming self or others, I/J are grossly impaired, impulses are better controlled. Impression: Most likely patient has delirium on dementia Multiple medical issues please see Dr. Senior notes for more detailed information. Plan: Continue Seroquel 25mg bid and 50mg hs ativan 0.5bid and hs for agitation Continue current management will f/u on pt tomorrow thank you very much for letting me to participate in care of your pt. Past Patient History - Infectious Disease Hx of Infectious Diseases: None - Tetanus Immunizations Tetanus Immunization: Unknown - Past Medical History & Family History Past Medical History?: Yes - Past Social History Smoking Status: Former Smoker - CARDIAC Hx Cardiac Disorders: Yes (chronic AFib,) Hx Congestive Heart Failure: Yes Hx Hypertension: Yes - PULMONARY Hx Chronic Obstructive Pulmonary Disease (COPD): Yes - NEUROLOGICAL HX Cerebrovascular Accident: Yes - HEENT Hx HEENT Problems: Yes Hx Cataracts: Yes - RENAL Hx Chronic Kidney Disease: No - ENDOCRINE/METABOLIC Hx Diabetes Mellitus Type 2: Yes - HEMATOLOGICAL/ONCOLOGICAL Hx Blood Disorders: Yes Hx AIDS: No Hx Anemia: Yes - INTEGUMENTARY Hx Dermatological Problems: Yes Other/Comment: bright red buttocks/sacrum, ble slight redness, thick hard toenails both feet , variscosities both feet, eccymotic areas both arms, small bruises both knees, left forehead small 0.02cm scab - MUSCULOSKELETAL/RHEUMATOLOGICAL Hx Musculoskeletal Disorders: Yes - GASTROINTESTINAL Hx Gastrointestinal Disorders: Yes (hx c dif) - GENITOURINARY/GYNECOLOGICAL Hx Genitourinary Disorders: Yes Hx Hematuria: Yes Hx Incontinence: Yes Hx Urinary Tract Infection: Yes - PSYCHIATRIC Hx Emotional Abuse: No Hx Physical Abuse: No Hx Substance Use: No - SURGICAL HISTORY Hx Surgeries: Yes - ANESTHESIA Hx Anesthesia Reactions: No Hx Malignant Hyperthermia: No Meds Allergies/Adverse Reactions: Allergies Allergy/AdvReac Type Severity Reaction Status Date / Time No Known Allergies Allergy Verified 10/27/16 11:55 - Medications Medications: Current Medications Acetaminophen (Tylenol 325mg Tab) 650 mg PO Q4H PRN PRN Reason: Pain, moderate (4-7) Last Admin: 11/04/16 12:31 Dose: 650 mg Albuterol/Ipratropium (Duoneb 3 Mg/0.5 Mg (3 Ml) Ud) 3 ml IH Q2H PRN PRN Reason: Shortness of Breath Last Admin: 10/28/16 10:51 Dose: 3 ml Alprazolam (Xanax) 0.5 mg PO Q6H PRN; Protocol PRN Reason: Anxiety Last Admin: 11/06/16 02:39 Dose: 0.5 mg Apixaban (Eliquis) 2.5 mg PO BID [facility] PRN Reason: Protocol Last Admin: 11/06/16 10:00 Dose: Not Given Atenolol (Tenormin) 25 mg PO DAILY [facility] Last Admin: 11/06/16 10:00 Dose: Not Given Furosemide (Lasix) 40 mg PO BID [facility] Last Admin: 11/06/16 10:00 Dose: Not Given Lorazepam (Ativan) 0.5 mg PO BID [facility] PRN Reason: Protocol Nystatin (Nystop Topical Powder) 15 gm TOP BID [facility] Last Admin: 11/06/16 14:39 Dose: 1 applic Quetiapine Fumarate (Seroquel) 25 mg PO BID [facility] PRN Reason: Protocol Last Admin: 11/06/16 10:00 Dose: Not Given Quetiapine Fumarate (Seroquel) 50 mg PO HS [facility] PRN Reason: Protocol Verapamil HCl (Calan Tab) 80 mg PO TID [facility] Last Admin: 11/06/16 15:46 Dose: Not Given Ziprasidone (Geodon Inj) 10 mg IM Q12H PRN; Protocol PRN Reason: severe agitation Results - Vital Signs Recent Vital Signs: Last Vital Signs Temp 98.2 F 11/06/16 07:30 Pulse 102 H 11/06/16 07:30 Resp 24 11/06/16 07:30 BP 130/48 L 11/06/16 07:30 Pulse Ox 98 11/06/16 07:30 - Labs Result Diagrams: 11/05/16 06:50 11/05/16 06:50
--- NOTE | 2016-11-07 05:23 | OP ---
PREOPERATIVE DIAGNOSES: Gross hematuria and voiding dysfunction. POSTOPERATIVE DIAGNOSES: Gross hematuria, voiding dysfunction and bladder tumor. ESTIMATED BLOOD LOSS: Less than 25 mL. We left the Garcia catheter 24-Pashto. INDICATIONS: Brief history and physical was reviewed, she is a very pleasant woman with some baseline dementia, came in with hematuria. She is here now for the above procedure. We discussed the options with the son who we consented. Risks and benefits were discussed at length. OPERATIVE FINDINGS: The ureteral orifices are clear. PROCEDURE: Exam under anesthesia, cystoscopy, bilateral retrograde pyelograms, bladder biopsy and fulguration. COMPLICATIONS: There were no complications. SPECIMEN SENT: Bladder tumor. At the termination of the procedure, I want to mentioned it to be clear, we definitely did not remove the entire tumor. We note that there is lesser residual tumor. The plans will be discussed once we will have pathology. DESCRIPTION OF PROCEDURE: After obtaining informed consent, routine monitors placed, time-out was called, confirmed patient's positioning. We inserted the cystoscope via the urethra and the bladder, inspected carefully, identified the bladder tumor. We subsequently removed the biopsy and fulgurated. It is floor on the patient side. The ureteral orifice have clear efflux from both sides and bilateral retrograde pyelograms are performed, within normal limits. The procedure continues with the bladder biopsy being taken with the cold-cup biopsy and then cauterized. The patient tolerated the procedure without complications. it is noted that the examination under anesthesia reveals no thickness, bladder is mobile completely. We also discussed the options, patient was bleeding and therefore we need to decide what to do in terms of blood thinner. There is also the risk of bleeding versus the risk of doing more procedures. We discussed this with the patient, with Dr. Xavier and with the patient's son. Maybe consider other options. Tarun Clayton MD
--- NOTE | 2016-11-07 05:24 | CON ---
DATE: 10/29/2016 REASON FOR CONSULTATION: Gross hematuria. HISTORY OF PRESENT ILLNESS: This is a very pleasant lady in the hospital under the care of Dr. Wade. She has urology consult for gross hematuria. See the plan listed below. PAST MEDICAL AND SURGICAL HISTORY: As listed in the chart. MEDICATIONS: See the chart. She is basically on multiple blood thinners. REVIEW OF SYSTEMS: Listed above, noncontributory. PHYSICAL EXAMINATION: GENERAL: *------* chart. ABDOMEN: Relatively soft. Not grossly distended. DIAGNOSIS: Gross hematuria. PLAN: As follows; See the imaging, labs etc. Our recommendation is going to be for cystoscopy. We will have to figure out the timing. We will discuss the plan with her son and with Dr. Wade. In the meantime, holding off the blood thinners make sense. Then further plans will follow. We will have to discuss the risk, benefits, and alternatives. The plan will be for cystoscopy and then further plans will follow. Tarun Clayton MD
[2016-11-07 07:21] LABS: BASO # 0.05 K/mm3 (0.0-2.0); BASO % 0.7 % (0.0-3.0); EOS # 0.2 (0.0-0.7); EOS % 2.9 % (1.5-5.0); GRAN # 4.43 (1.4-6.5); GRAN % 60.4 % (50.0-68.0); HEMOGLOBIN 8.8 gm/dL (12.0-16.0); LYMPH # 1.6 (1.2-3.4); LYMPH % 22.2 % (22.0-35.0); MEAN CELL VOLUME 85.4 fL (80.0-105.0); MEAN CORPUSCULAR HEMOGLOBIN 25.7 pg (25.0-35.0); MEAN CORPUSCULAR HGB CONC 30.1 g/dl (31.0-37.0); MEAN PLATELET VOLUME 10.4 fl (7.0-11.0); MONO % 13.8 % (1.0-6.0); PLATELET COUNT 314 10^3/uL (120.0-450.0); RBC 3.42 10^6/uL (3.5-6.1); RED CELL DISTRIBUTION WIDTH 21.7 % (11.5-14.5); WHITE BLOOD COUNT 7.3 10^3/ul (4.5-11.0)
[2016-11-07 07:28] LABS: ALB/GLOB RATIO 0.9 (1.1-1.8); ALBUMIN 2.6 g/dL (3.0-4.8); ALT/SGPT 37 U/L (7-56); AST/SGOT 28 U/L (15-39); BLOOD UREA NITROGEN 20 mg/dL (7-21); CALCIUM 8.5 mg/dL (8.4-10.5); GFR AFRICAN-AMERICAN > 60; GFR NON-AFRICAN AMERICAN > 60
--- NOTE | 2016-11-07 07:38 | RAD ---
PROCEDURE: Radiographs of the Left Forearm HISTORY: LEFT ARM PAIN COMPARISON: None available. TECHNIQUE: Frontal and lateral views obtained. FINDINGS: BONES: No fracture or central lytic lesion. Cystic changes in the ulnar sided carpal bones bordering the distal ulna noted extraosseous ossific debris here and to a much lesser extent there sided elbow joint noted. JOINT SPACES: Radiocarpal arthrosis OTHER FINDINGS: Minimal elbow joint effusion not excluded. No gross fracture appreciated Few phleboliths IMPRESSION: Hypertrophic arthrosis radiocarpal level. Ossific debris -radiocarpal level and to much lesser extent elbow level also suggested.
--- NOTE | 2016-11-07 07:41 | RAD ---
PROCEDURE: Radiographs of the left humerus. HISTORY: LEFT ARM PAIN COMPARISON: None. FINDINGS: BONES: Evaluation for possible proximal humeral fracture limited given projection. No humeral mid or distal shaft fractures suggested. Elbow joint arthrosis. . On these images the humeral head projecting over the inferior or along the inferior aspect of the glenoid fossa -this may be due to technique and positioning. SOFT TISSUES: Normal. OTHER FINDINGS: None. IMPRESSION: Limited exam regarding the proximal humerus -as discussed above. No mid or distal shaft humeral fractures. Proximal humeral head and neck integrity -indeterminate Consider left shoulder x-ray to better assess glenohumeral positioning and any potential more proximal humeral head/humeral neck fracture
--- NOTE | 2016-11-07 08:19 | PN ---
DATE: 11/06/2016 Above notes were noted on the chart. SUBJECTIVE: The patient with clear urine with Garcia catheter in place but has been started back on blood thinner and now the urine has become bloody. Urology is here for followup. The abdomen is relatively soft. The patient is resting comfortably. Blood is noted. Blood-tinged urine is noted. DIAGNOSES: Gross hematuria, history of bladder cancer. PLAN: As follows; We need to discuss options. I discussed with her son, with oncology, with Dr. Xavier. Certainly, it is not a muscle invasive disease. Possibly repeating a resection may be make the most sense. Further plans would be possibly for using mitomycin, not BCG. BCG would be inappropriate at this point given the fact that I know this residual tumor, but perhaps mitomycin may make sense or the possibility for resecting again risking the patient in terms of anesthesia risking the life, but either way, the patient will need to go back on a blood thinner, so in the meantime, we stopped it for today but as soon as the urine clears, we are going to resume it and then we will make further plans. In the meantime, leave the Garcia catheter to straight drainage, hold the Eliquis for today and then resume tomorrow. Further plans will follow. Tarun Clayton MD
--- NOTE | 2016-11-07 08:37 | PN ---
DATE: 11/01/2016 SUBJECTIVE: Please see previous consult note and previously dictated operative report. The patient is postop status post bladder biopsy with fulguration and retrograde pyelogram. Pathology is currently pending. The patient is currently resting comfortably. The urine is relatively clear. PLAN: The plan will be as follows, she can resume blood thinners. Await pathology and then discuss options. Tarun Clayton MD
[2016-11-07] MEDS ORDERED: Potassium Chloride 20 mEq ER Tab PO ONE ×2 (09:03→09:49)
[2016-11-07] MEDS: Nystatin 100,000 Units/gm Topical Pow(15 gm) TOP SCH ×2 (09:23→17:34)
--- NOTE | 2016-11-07 09:24 | CP.PCM.CON ---
History of Present Illness - History of Present Illness History of Present Illness: follow-up note: patient was admitted on the medical side for evaluation of hematuria, AMS, some psych consult was called for evaluation of agitation, restless behavior PCP requested this scientific technical writer to f/u on this pt yesterday, meds adjusted, pt's seroquel was increased to 100mg daily, ativan 0.5mg tid. pt was followed up today, pt presented much better today, was observed eating independently, pt was making good eye contact, but in regards of speech pt was mumbling something incoherently, thought process is disorganized, pt also is confused, advanced dementia. pt was followed up today, as per staff pt is much calmer, doing better, had a good night sleep. Vital signs reviewed, labs reviewed, medications reviewed. discussed with primary care physician Dr. Senior. MSE: pt alert, confused, speech was incoherent, pt was mumbling something, affect: flat, thought process is disorganized, thought content: pt is confused, no signs of agitation, was not able to answer if pt has thoughts of harming self or others, I/J are grossly impaired, impulses are better controlled. Impression: Most likely patient has delirium on dementia Multiple medical issues please see Dr. Senior notes for more detailed information. Plan: Continue Seroquel 25mg bid and 50mg hs ativan 0.5bid and hs for agitation Continue current management will f/u on pt tomorrow thank you very much for letting me to participate in care of your pt. Past Patient History - Infectious Disease Hx of Infectious Diseases: None - Tetanus Immunizations Tetanus Immunization: Unknown - Past Medical History & Family History Past Medical History?: Yes - Past Social History Smoking Status: Former Smoker - CARDIAC Hx Cardiac Disorders: Yes (chronic AFib,) Hx Congestive Heart Failure: Yes Hx Hypertension: Yes - PULMONARY Hx Chronic Obstructive Pulmonary Disease (COPD): Yes - NEUROLOGICAL HX Cerebrovascular Accident: Yes - HEENT Hx HEENT Problems: Yes Hx Cataracts: Yes - RENAL Hx Chronic Kidney Disease: No - ENDOCRINE/METABOLIC Hx Diabetes Mellitus Type 2: Yes - HEMATOLOGICAL/ONCOLOGICAL Hx Blood Disorders: Yes Hx AIDS: No Hx Anemia: Yes - INTEGUMENTARY Hx Dermatological Problems: Yes Other/Comment: bright red buttocks/sacrum, ble slight redness, thick hard toenails both feet , variscosities both feet, eccymotic areas both arms, small bruises both knees, left forehead small 0.02cm scab - MUSCULOSKELETAL/RHEUMATOLOGICAL Hx Musculoskeletal Disorders: Yes - GASTROINTESTINAL Hx Gastrointestinal Disorders: Yes (hx c dif) - GENITOURINARY/GYNECOLOGICAL Hx Genitourinary Disorders: Yes Hx Hematuria: Yes Hx Incontinence: Yes Hx Urinary Tract Infection: Yes - PSYCHIATRIC Hx Emotional Abuse: No Hx Physical Abuse: No Hx Substance Use: No - SURGICAL HISTORY Hx Surgeries: Yes - ANESTHESIA Hx Anesthesia Reactions: No Hx Malignant Hyperthermia: No Meds Allergies/Adverse Reactions: Allergies Allergy/AdvReac Type Severity Reaction Status Date / Time No Known Allergies Allergy Verified 10/27/16 11:55 - Medications Medications: Current Medications Acetaminophen (Tylenol 325mg Tab) 650 mg PO Q4H PRN PRN Reason: Pain, moderate (4-7) Last Admin: 11/07/16 04:23 Dose: 650 mg Albuterol/Ipratropium (Duoneb 3 Mg/0.5 Mg (3 Ml) Ud) 3 ml IH Q2H PRN PRN Reason: Shortness of Breath Last Admin: 10/28/16 10:51 Dose: 3 ml Alprazolam (Xanax) 0.5 mg PO Q6H PRN; Protocol PRN Reason: Anxiety Last Admin: 11/07/16 04:23 Dose: 0.5 mg Apixaban (Eliquis) 2.5 mg PO BID [facility] PRN Reason: Protocol Last Admin: 11/06/16 17:17 Dose: Not Given Atenolol (Tenormin) 25 mg PO DAILY [facility] Last Admin: 11/06/16 10:00 Dose: Not Given Furosemide (Lasix) 40 mg PO BID [facility] Last Admin: 11/06/16 17:18 Dose: Not Given Lorazepam (Ativan) 0.5 mg PO BID [facility] PRN Reason: Protocol Last Admin: 11/06/16 17:17 Dose: Not Given Nystatin (Nystop Topical Powder) 15 gm TOP BID [facility] Last Admin: 11/06/16 17:18 Dose: 1 applic Quetiapine Fumarate (Seroquel) 25 mg PO BID [facility] PRN Reason: Protocol Last Admin: 11/06/16 17:18 Dose: Not Given Quetiapine Fumarate (Seroquel) 50 mg PO HS [facility] PRN Reason: Protocol Last Admin: 11/07/16 00:35 Dose: Not Given Verapamil HCl (Calan Tab) 80 mg PO TID [facility] Last Admin: 11/06/16 17:17 Dose: Not Given Ziprasidone (Geodon Inj) 10 mg IM Q12H PRN; Protocol PRN Reason: severe agitation Results - Vital Signs Recent Vital Signs: Last Vital Signs Temp 98.8 F 11/07/16 07:30 Pulse 95 H 11/07/16 07:30 Resp 20 11/07/16 07:30 BP 134/66 11/07/16 07:30 Pulse Ox 100 11/07/16 07:30 - Labs Result Diagrams: 11/07/16 07:10 11/07/16 07:10 Labs: Laboratory Results - last 24 hr 11/07/16 11/07/16 07:10 07:10 WBC 7.3 RBC 3.42 L Hgb 8.8 L Hct 29.2 L MCV 85.4 MCH 25.7 MCHC 30.1 L RDW 21.7 H Plt Count 314 MPV 10.4 Gran % 60.4 Lymph % (Auto) 22.2 [place] % (Auto) 13.8 H Eos % (Auto) 2.9 Baso % (Auto) 0.7 Gran # 4.43 Lymph # 1.6 [place] # 1.0 H Eos # 0.2 Baso # 0.05 Sodium 139 Potassium 3.5 L Chloride 106 Carbon Dioxide 26 Anion Gap 11 BUN 20 Creatinine 0.8 Est GFR ( Amer) > 60 Est GFR (Non-Af Amer) > 60 Random Glucose 87 Calcium 8.5 Total Bilirubin 0.7 AST 28 ALT 37 Alkaline Phosphatase 97 Total Protein 5.6 L Albumin 2.6 L Globulin 3.0 Albumin/Globulin Ratio 0.9 L
--- NOTE | 2016-11-07 13:35 | PN ---
DATE: 11/07/2016 SUBJECTIVE: The patient has no complaints of any headaches or dizziness. No nausea. No vomiting. PHYSICAL EXAMINATION: VITAL SIGNS: Temperature is 98.8, pulse is 67, blood pressure is 109/57, and respirations are 20. HEENT: Anicteric sclerae. Moist mucosa. NECK: No JVD, adenopathy, thyromegaly, or bruits. CARDIOVASCULAR: S1 and S2 is regular. No murmurs, rubs, or gallops. LUNGS: Clear to auscultation bilaterally. No wheezes, rales, or rhonchi. ABDOMEN: Bowel sounds are positive, soft and nontender. EXTREMITIES: Lower extremities: No cyanosis, clubbing, or edema. LABORATORY DATA: White count is 7.3 and hemoglobin 8.8. Creatinine is 0.8. ASSESSMENT: 1. Delirium improved. 2. Low-grade bladder tumor. 3. Atrial fibrillation on Eliquis. 4. Chronic obstructive pulmonary disease. 5. Hematuria. 6. Anemia. 7. DO NOT RESUSCITATE/DO NOT INTUBATE. PLAN: The patient is to have Garcia catheter. The patient's Eliquis is being held because of the hematuria. I did speak to Dr. Clayton about the case, he is going to speak with the patient's son about the treatment options. The patient has to be on anticoagulation because of the high risk of having stroke from the atrial fibrillation. The patient is complaining of left arm pain at humerus. X-ray done to look for fracture. No definite fracture was seen. The patient is on Ativan and is going to continue with Lasix. The patient is on Seroquel. I did speak to from Psychiatry this morning. The patient is on a higher dose of the Seroquel. She is getting 25 mg b.i.d. and 50 mg at bedtime. The patient is on Xanax p.r.n. Tommie Xavier MD
[2016-11-07 17:37] VITALS: BP 124/64; PULSE 62
[2016-11-07 18:07] VITALS: RESP 15; TEMP 96.2; O2SAT 98
--- NOTE | 2016-11-08 08:41 | CP.PCM.PCO ---
Physician Communication Note - Physician Communication Note Physician Communication Note: pt was d/c
== END 2016-11-07 18:50 | DRG 669 ==
LOC: ED 11:43 → ERH 14:40 → 5RNO 15:31 → OBSVTOIN 10-29 17:47
PROVIDERS: ADMIT Internal Medicine Nephrology; ATTEND Internal Medicine Nephrology
PROC: 5A09357 Assistance with Respiratory Ventilation, Less than 24 Consecutive Hours, Continuous Positive Airway Pressure (ICD-10-PCS; 2016-10-27)
PROC: 0T9B80Z Drainage of Bladder with Drainage Device, Via Natural or Artificial Opening Endoscopic (ICD-10-PCS; 2016-10-31)
PROC: 0TBB8ZX Excision of Bladder, Via Natural or Artificial Opening Endoscopic, Diagnostic (ICD-10-PCS; principal; 2016-10-31 09:30)
PROC: 0T5B8ZZ Destruction of Bladder, Via Natural or Artificial Opening Endoscopic (ICD-10-PCS; 2016-10-31 09:30)
PROC: BT14YZZ Fluoroscopy of Kidneys, Ureters and Bladder using Other Contrast (ICD-10-PCS; 2016-10-31 09:30)
DX: C67.9 Malignant neoplasm of bladder, unspecified (principal); F05 Delirium due to known physiological condition; R31.0 Gross hematuria; D68.32 Hemorrhagic disorder due to extrinsic circulating anticoagulants; T45.515A Adverse effect of anticoagulants, initial encounter; I11.0 Hypertensive heart disease with heart failure; I50.9 Heart failure, unspecified; F02.80 Dementia in other diseases classified elsewhere, unspecified severity, without behavioral disturbance, psychotic disturbance, mood disturbance, and anxiety; I27.2 Other secondary pulmonary hypertension; G30.9 Alzheimer's disease, unspecified; I48.2 Chronic atrial fibrillation; E78.5 Hyperlipidemia, unspecified; F41.9 Anxiety disorder, unspecified; J44.9 Chronic obstructive pulmonary disease, unspecified; D64.9 Anemia, unspecified; D72.829 Elevated white blood cell count, unspecified; R45.1 Restlessness and agitation; Z66 Do not resuscitate; Z96.641 Presence of right artificial hip joint; Z79.01 Long term (current) use of anticoagulants; Z87.891 Personal history of nicotine dependence; Z86.73 Personal history of transient ischemic attack (TIA), and cerebral infarction without residual deficits

== ENCOUNTER 2016-11-18 11:43 | Inpatient (IN) | payer MEDICARE, OTHER ==
[2016-11-18 11:43] VITALS: PULSE 130
--- NOTE | 2016-11-18 11:53 | ED PDOC ---
Arrival/HPI - General Time Seen by Provider: 11/18/16 11:44 Historian: Patient, EMS - History of Present Illness Narrative History of Present Illness (Text): 11/18/16 11:49 A 86 year old female, whose past medical history includes delirium, bladder tumor, chronic atrial fibrillation on Eliquis, COPD, CHF, CVA (no subjective focal residual weakness), and anemia is sent into the emergency department from [facility] for respiratory distress, which began earlier today. EMS states the patient began to wheeze upon arrival and was administered nebulizer en route , treatment improved symptoms. She denies any chest pain, fever, chills, or any other complaints at this time. Based on previous medical records from patient's discharge summary on 11/07/16 she has a standing DO NOT RESUSCITATE/DO NOT INTUBATE order. Time/Duration: 4-6 hours Symptom Course: Unchanged Activities at Onset: Rest Context: Walking Past Medical History - Provider Review Nursing Documentation Reviewed: Yes - Infectious Disease Hx of Infectious Diseases: None - Tetanus Immunization Tetanus Immunization: Unknown - Cardiac Hx Cardiac Disorders: Yes (chronic AFib,) Hx Congestive Heart Failure: Yes Hx Hypertension: Yes - Pulmonary Hx Chronic Obstructive Pulmonary Disease (COPD): Yes - Neurological HX Cerebrovascular Accident: Yes - HEENT Hx HEENT Disorder: Yes Hx Cataracts: Yes - Renal Hx Renal Disorder: No - Endocrine/Metabolic Hx Diabetes Mellitus Type 2: Yes - Hematological/Oncological Hx Blood Disorders: Yes Hx AIDS: No Hx Anemia: Yes - Integumentary Hx Dermatological Disorder: Yes Other/Comment: bright red buttocks/sacrum, ble slight redness, thick hard toenails both feet , variscosities both feet, eccymotic areas both arms, small bruises both knees, left forehead small 0.02cm scab - Musculoskeletal/Rheumatological Hx Musculoskeletal Disorders: Yes - Gastrointestinal Hx Gastrointestinal Disorders: Yes (hx c dif) - Genitourinary/Gynecological Hx Genitourinary Disorders: Yes Hx Hematuria: Yes Hx Incontinence: Yes Hx Urinary Tract Infection: Yes - Psychiatric Hx Emotional Abuse: No Hx Physical Abuse: No Hx Substance Use: No - Past Surgical History Past Surgical History: Non-Contributing - Surgical History Hx Joint Replacement: Yes (right hip) - Anesthesia Hx Anesthesia Reactions: No Hx Malignant Hyperthermia: No - Suicidal Assessment Feels Threatened In Home Enviroment: No Family/Social History - Physician Review Nursing Documentation Reviewed: Yes Family/Social History: No Known Family HX, Unknown Family HX Smoking Status: Former Smoker Hx Alcohol Use: No Hx Substance Use: No Hx Substance Use Treatment: No Allergies/Home Meds Allergies/Adverse Reactions: Allergies No Known Allergies Allergy (Verified 10/27/16 11:55) Home Medications: Home Meds Medication Instructions Recorded Confirmed Alprazolam [Xanax] 0.25 mg PO Q6H PRN 10/27/16 11/18/16 Furosemide [Lasix] 40 mg PO BID 10/27/16 11/18/16 Verapamil [Verapamil HCl] 80 mg PO TID 10/27/16 11/18/16 Potassium Chloride [K-Dur 20 mEq 1 tab PO DAILY 11/18/16 11/18/16 ER Tab] QUEtiapine [Seroquel] 50 mg PO TID 11/18/16 11/18/16 Review of Systems - Physician Review All systems were reviewed & negative as marked: Yes Physical Exam - Physical Exam Narrative Physical Exam (Text): 11/18/16 12:42 - Review of Systems Constitutional: Normal. absent: Fatigue, Weight Change, Fevers Eyes: Normal ENT: Normal Respiratory: Positive: SOB absent: Cough, Sputum Cardiovascular: Normal absent: Chest pain, Palpitations, Syncope Gastrointestinal: Normal absent: Abdominal pain, Diarrhea, Nausea, Vomiting Genitourinary: Normal. absent: Dysuria, Frequency, Hematuria Musculoskeletal: Normal. absent: Arthralgias, Back Pain, Neck Pain Skin: Normal Neurological: Normal absent: Focal Weakness Endocrine: Normal Hemo/Lymphatic: Normal Psychiatric: Normal - Physical exam Patient appears age appropriate, mild resp distress - Systems Exam Head: Present: Atraumatic, Normocephalic Pupils: Present: PERRL Extraocular Muscles: Present: EOMI Conjunctiva: Present: Normal Mouth: Present: Moist Mucous Membranes Neck: Present: Normal Range of Motion. No: MIDLINE TENDERNESS, Paraspinal Tenderness Respiratory/Chest: Present: Respiratory Distress, expiratory wheezing. No: Accessory Muscle Use, Tachypnic Cardiovascular: Present: irregular, Peripheral Pulses Present. No: Murmurs Abdomen: Present: Normal Bowel Sounds, No: Tenderness, Peritoneal Signs, Rebound, Guarding, Distention Back: Present: Normal Inspection. No: Midline Tenderness, Paraspinal Tenderness Upper Extremity: Present: Normal Inspection. No: Cyanosis, Edema Lower Extremity: Present: Normal Inspection. No: Edema Neurological: Present: GCS=15, Speech Normal, cranial nerves II through XII fully intact with no cerebellar abnormality, neuro-sensory fully intact. No focal neurological deficits. Skin: Present: Warm, Dry, Normal Color. No: Rashes Lymphatic: Present: OX3, NI, NC Psychiatric: Present: Alert, Oriented x 3, Normal Insight, Normal Concentration Vital Signs Reviewed: Yes Vital Signs Temp Pulse Resp BP Pulse Ox 11/18/16 13:44 107/72 11/18/16 13:13 98.2 F 97 H 20 136/75 94 L 11/18/16 12:43 30 H Medical Decision Making ED Course and Treatment: 11/18/16 12:44 Impression: A elderly female in respiratory distress. Wheezing on examination Differential Diagnosis included but are not limited to: COPD vs. Pneumonia Plan: -- EKG -- Peak Flow Pre/Post TX Daily -- Labs -- ASA, Solu-Medrol -- Reassess and disposition Prior Visits: Notes and results from previous visits were reviewed. Patient was last seen in the emergency department on 10/27/16 for Hematuria and was hospitalized. Progress Notes: Chest X-Ray Birth Attendant : Anselmo Bhardwaj MD Report Date : 11/18/2016 12:43 HISTORY:cough COMPARISON:10/26/2016 FINDINGS: OTHER FINDINGS: None. IMPRESSION: No active disease 11/18/16 13:54 Upon reevaluation patient is feeling much better and lungs are clear to auscultation. Pt states she feels well. marquis Flynn, accepted obs to Dr. Xavier's service pt aware of and agrees with plan EKG shows atrial fibrillation, 90 bpm, no ST segment elevations. Interpreted by me. - Lab Interpretations Lab Results: 11/18/16 12:15 11/18/16 12:15 Lab Results 11/18/16 12:15: Sodium 136, Potassium 3.8, Chloride 98, Carbon Dioxide 30, Anion Gap 12, BUN 26 H, Creatinine 1.0, Est GFR ( Amer) > 60, Est GFR ( Non-Af Amer) 52, Random Glucose 104, Calcium 8.8, Total Bilirubin 0.4, AST 30, ALT 50, Alkaline Phosphatase 98, Lactate Dehydrogenase 613, Total Creatine Kinase 45, Troponin I < 0.01, NT-Pro-B Natriuret Pep 5290 H, Total Protein 6.2, Albumin 3.1, Globulin 3.1, Albumin/Globulin Ratio 1.0 L 11/18/16 12:15: PT 11.6, INR 1.07, APTT 29.6 11/18/16 12:15: WBC 13.6 H D, RBC 3.40 L, Hgb 8.8 L, Hct 29.3 L, MCV 86.2, MCH 25.9, MCHC 30.0 L, RDW 21.9 H, Plt Count 293, MPV 10.4, Gran % 77.9 H, Lymph % ( Auto) 14.2 L, [place] % (Auto) 7.3 H, Eos % (Auto) 0.3 L, Baso % (Auto) 0.3, Gran # 10.59 H, Lymph # 1.9, [place] # 1.0 H, Eos # 0.0, Baso # 0.04 11/18/16 11:53: POC Glucose (mg/dL) 113 H I have reviewed the lab results: Yes - RAD Interpretation Radiology Orders: 11/18/16 11:51 CHEST PORTABLE [RAD] Stat - Medication Orders Current Medication Orders: Discontinued Medications Albuterol/Ipratropium (Duoneb 3 Mg/0.5 Mg (3 Ml) Ud) 3 ml IH Q15M TARSHA Stop: 11/18/16 12:31 Last Admin: 11/18/16 13:28 Dose: 3 ml Aspirin (Aspirin Chewable) 324 mg PO STAT STA Stop: 11/18/16 11:53 Last Admin: 11/18/16 12:35 Dose: 324 mg Furosemide (Lasix) 40 mg IVP STAT STA Stop: 11/18/16 13:31 Last Admin: 11/18/16 13:44 Dose: 40 mg Methylprednisolone (Solu-Medrol) 125 mg IVP STAT STA Stop: 11/18/16 11:52 Last Admin: 11/18/16 12:35 Dose: 125 mg - PA / [employer]OCIATE / Resident Statement MD/DO has reviewed & agrees with the documentation as recorded. - Scribe Statement The provider has reviewed the documentation as recorded by the Scribe Ida Jin Provider Scribe Attestation: All medical record entries made by the Scribe were at my direction and personally dictated by me. I have reviewed the chart and agree that the record accurately reflects my personal performance of the history, physical exam, medical decision making, and the department course for this patient. I have also personally directed, reviewed, and agree with the discharge instructions and disposition. Disposition/Present on Arrival - Present on Arrival Any Indicators Present on Arrival: No History of DVT/PE: No History of Uncontrolled Diabetes: No Urinary Catheter: No History Surgical Site Infection Following: None - Disposition Have Diagnosis and Disposition been Completed?: Yes Diagnosis: Chronic obstructive pulmonary disease Disposition: HOSPITALIZED Disposition Time: 14:01 Patient Plan: Observation Condition: STABLE Referrals: Tommie Xavier MD [Primary Care Provider] - Follow up with primary
[2016-11-18 12:12] VITALS: BMI 25.8
[2016-11-18] MEDS: Albuterol-Ipratrop 3 mg / 0.5 (3 ml) UD IH SCH ×4 (12:35→20:03)
[2016-11-18 12:42] LABS: BASO # 0.04 K/mm3 (0.0-2.0); BASO % 0.3 % (0.0-3.0); EOS % 0.3 % (1.5-5.0); GRAN # 10.59 (1.4-6.5); GRAN % 77.9 % (50.0-68.0); HEMOGLOBIN 8.8 gm/dL (12.0-16.0); LYMPH # 1.9 (1.2-3.4); LYMPH % 14.2 % (22.0-35.0); MEAN CELL VOLUME 86.2 fL (80.0-105.0); MEAN CORPUSCULAR HEMOGLOBIN 25.9 pg (25.0-35.0); MEAN PLATELET VOLUME 10.4 fl (7.0-11.0); MONO % 7.3 % (1.0-6.0); PLATELET COUNT 293 10^3/uL (120.0-450.0); RED CELL DISTRIBUTION WIDTH 21.9 % (11.5-14.5); WHITE BLOOD COUNT 13.6 10^3/ul (4.5-11.0)
--- NOTE | 2016-11-18 12:44 | RAD ---
HISTORY: cough COMPARISON: 10/26/2016 FINDINGS: LUNGS: There is elevation of the right hemidiaphragm. The lungs are clear PLEURA: No significant pleural effusion identified, no pneumothorax apparent. CARDIOVASCULAR: Normal. OSSEOUS STRUCTURES: No significant abnormalities. VISUALIZED UPPER ABDOMEN: Normal. OTHER FINDINGS: None. IMPRESSION: No active disease.
[2016-11-18 12:48] LABS: ALBUMIN 3.1 g/dL (3.0-4.8); ALT/SGPT 50 U/L (7-56); AST/SGOT 30 U/L (15-39); BLOOD UREA NITROGEN 26 mg/dL (7-21); CALCIUM 8.8 mg/dL (8.4-10.5); GFR AFRICAN-AMERICAN > 60; GFR NON-AFRICAN AMERICAN 52; INR 1.07 (0.93-1.08); PARTIAL THROMBOPLASTIN TIME 29.6 Seconds (23.7-30.8); PROTHROMBIN TIME 11.6 Seconds (9.9-11.8)
[2016-11-18 12:56] LABS: B-TYPE NATRIURETIC PEPTIDE 5290 pg/mL (0-450)
[2016-11-18 13:01] LABS: TROPONIN I < 0.01 ng/mL
[2016-11-18] MEDS ORDERED: Albuterol-Ipratrop 3 mg / 0.5 (3 ml) UD IH PRN (19:16)
[2016-11-18] MEDS: Nystatin 100,000 Units/gm Topical Pow(15 gm) TOP SCH (20:38)
--- NOTE | 2016-11-18 21:00 | CP.PCM.HP ---
History of Present Illness - History of Present Illness History of Present Illness: Ms. Knutson is a 86 year old female presented to ED with shortness of breath. She has history of COPD, CHF, A-FIb. She is on anticoagulation with eliquis. Denies any bleeding. heart rate is controlled. No chest pain. She received nebs in ER with improvement in shortness of breath. No fever, cough. She has anemia. Wc elevated. Present on Admission - Present on Admission Any Indicators Present on Admission: No Review of Systems - Constitutional Constitutional: As Per HPI, Fatigue, Malaise - EENT Eyes: absent: As Per HPI, Blind Spots, Blurred Vision, Change in Vision, Decreased Night Vision, Diplopia, Discharge, Dry Eye, Exophthalmos, Floaters, Irritation, Itchy Eyes, Loss of Peripheral Vision, Pain, Photophobia, Requires Corrective Lenses, Sees Flashes, Spots in Vision, Tunnel Vision, Other Visual Disturbances, Loss of Vision, Other Nose/Mouth/Throat: Halitosis. absent: As Per HPI, Epistaxis, Nasal Congestion, Nasal Discharge, Nasal Obstruction, Nasal Trauma, Nose Pain, Post Nasal Drip, Sinus Pain, Sinus Pressure, Bleeding Gums, Change in Voice, Dental Pain, Dry Mouth, Dysphagia, Hoarsness, Lip Swelling, Mouth Lesions, Mouth Pain, Odynophagia, Sore Throat, Throat Swelling, Tongue Swelling, Facial Pain, Neck Pain, Neck Mass, Other - Breasts Breasts: absent: As Per HPI, Change in Shape, Mass, Pain, Nipple Discharge, Nipple Inversion, Skin Changes, Swelling, Other - Cardiovascular Cardiovascular: As Per HPI - Respiratory Respiratory: As Per HPI, Dyspnea, Chest Congestion - Gastrointestinal Gastrointestinal: absent: As Per HPI, Abdominal Pain, Belching, Bloating, Change in Bowel Habits, Change in Stool Character, Coffee Ground Emesis, Constipation, Cramping, Diarrhea, Dyspepsia, Dysphagia, Early Satiety, Excessive Flatus, Fecal Incontinence, Heartburn, Hematemesis, Hematochezia, Loose Stools, Melena, Nausea, Odynophagia, Temesmus, Vomiting, Other - Genitourinary Genitourinary: absent: As Per HPI, Change in Urinary Stream, Difficulty Urinating, Dysuria, Flank Pain, Hematuria, Pyuria, Nocturia, Urinary Incontinence, Urinary Frequency, Urinary Hesitance, Urinary Urgency, Voiding Freq/Small Amts, Freq UTI, Hx Renal/Bladder Calculi, Hx /Renal Surgery, Bladder Distension, Other - Musculoskeletal Musculoskeletal: absent: As Per HPI, Abnormal Gait, Arthralgias, Atrophy, Back Pain, Deformity, Joint Swelling, Limited Range of Motion, Loss of Height, Muscle Cramps, Muscle Weakness, Myalgias, Neck Pain, Numbness, Radiating Pain into Limb, Stiffness, Tingling, Other - Integumentary Integumentary: absent: As Per HPI, Acne, Alopecia, Bleeding Lesions, Change in Hair, Change in Nails, Change in Pigmentation, Changing Lesions, Dry Skin, Erythema, Furuncle, Hirsutism, Lesions, New Lesions, Non-Healing Lesions, Photosensitivity, Pruritus, Rash, Skin Pain, Skin Ulcer, Sores, Striae, Swelling , Unusual Bruising, Wounds, Jaundice, Other - Psychiatric Psychiatric: absent: As Per HPI, Abnormal Sleep Pattern, Anhedonia, Anxiety, Auditory Hallucinations, Behavioral Changes, Change in Appetite, Change in Libido, Confusion, Depression, Difficulty Concentrating, Hallucinations, Homicidal Ideation, Hopelessness, Irritability, Memory Loss, Mood Swings, Panic Attacks, Paranoia, Suicidal Ideation, Visual Hallucinations, Tactile Hallucinations, Other - Endocrine Endocrine: absent: As Per HPI, Change in Body Appearance, Change in Libido, Cold Intolorance, Deepening of Voice, Excessive Sweating, Fatigue, Flushing, Heat Intolorance, Increase in Ring/Shoe/Hat Size, Palpitations, Polydipsia, Polyphagia, Polyuria, Other - Hematologic/Lymphatic Hematologic: As Per HPI Past Patient History - Infectious Disease Hx of Infectious Diseases: None - Tetanus Immunizations Tetanus Immunization: Unknown - Past Medical History & Family History Past Medical History?: Yes - Past Social History Smoking Status: Former Smoker - CARDIAC Hx Cardiac Disorders: Yes (chronic AFib,) Hx Congestive Heart Failure: Yes Hx Hypertension: Yes - PULMONARY Hx Chronic Obstructive Pulmonary Disease (COPD): Yes - NEUROLOGICAL HX Cerebrovascular Accident: Yes - HEENT Hx HEENT Problems: Yes Hx Cataracts: Yes - RENAL Hx Chronic Kidney Disease: No - ENDOCRINE/METABOLIC Hx Diabetes Mellitus Type 2: Yes - HEMATOLOGICAL/ONCOLOGICAL Hx Blood Disorders: Yes Hx AIDS: No Hx Anemia: Yes - INTEGUMENTARY Hx Dermatological Problems: Yes Other/Comment: bright red buttocks/sacrum, ble slight redness, thick hard toenails both feet , variscosities both feet, eccymotic areas both arms, small bruises both knees, left forehead small 0.02cm scab - MUSCULOSKELETAL/RHEUMATOLOGICAL Hx Falls: No - GASTROINTESTINAL Hx Gastrointestinal Disorders: Yes (hx c dif) - GENITOURINARY/GYNECOLOGICAL Hx Genitourinary Disorders: Yes Hx Hematuria: Yes Hx Incontinence: Yes Hx Urinary Tract Infection: Yes - PSYCHIATRIC Hx Emotional Abuse: No Hx Physical Abuse: No - SURGICAL HISTORY Hx Joint Replacement: Yes (right hip) - ANESTHESIA Hx Anesthesia Reactions: No Hx Malignant Hyperthermia: No Meds Allergies/Adverse Reactions: Allergies Allergy/AdvReac Type Severity Reaction Status Date / Time No Known Allergies Allergy Verified 10/27/16 11:55 Physical Exam - Constitutional Appears: Non-toxic, Chronically Ill - Head Exam Head Exam: ATRAUMATIC, NORMAL INSPECTION, NORMOCEPHALIC - Eye Exam Eye Exam: Normal appearance - ENT Exam ENT Exam: Mucous Membranes Moist, Normal Exam - Neck Exam Neck exam: Positive for: Normal Inspection - Respiratory Exam Respiratory Exam: Clear to Auscultation Bilateral, Wheezes - Cardiovascular Exam Cardiovascular Exam: REGULAR RHYTHM, +S1, +S2 - GI/Abdominal Exam GI & Abdominal Exam: Normal Bowel Sounds, Soft - Extremities Exam Extremities exam: Positive for: normal inspection - Back Exam Back exam: NORMAL INSPECTION - Neurological Exam Neurological exam: Normal Gait, Oriented x3, Reflexes Normal - Skin Skin Exam: Normal Color, Warm Results - Vital Signs Recent Vital Signs: Last Vital Signs Temp 97.4 F L 11/18/16 17:40 Pulse 113 H 11/18/16 18:00 Resp 20 11/18/16 17:40 BP 140/89 11/18/16 17:40 Pulse Ox 98 11/18/16 17:00 - Labs Result Diagrams: 11/18/16 12:15 11/18/16 12:15 Labs: Laboratory Results - last 24 hr 11/18/16 20:39 POC Glucose (mg/dL) 255 H Assessment & Plan - Assessment and Plan (Free Text) Assessment: 1. COPD acute exacerbation : nebs with Duo nebs Q 6 hr scheduled. O 2 by nasal canula. IV ceftrioxone 1 gm Q 24 hrs. CXR - no infiltrate. WC elevated to 31.6 k. 2. A-FIb : HR controlled . Continue eliquis . 3. Anemia : chronic . Monitor Hb/Hct. 4. Leukocytosis : UA/urine culture ordered. Ceftrioxone for COPD. WC elevated likely due to COPD exacerbation. 5. CV : stable. BNP elevated. Continue cardiac meds. Continue lasix 40 BID. K dur 20 daily. 6. heart healthy diet. 7. Tele monitoring. - Date & Time Date: 11/18/16 Time: 15:00
[2016-11-19] MEDS: Albuterol-Ipratrop 3 mg / 0.5 (3 ml) UD IH SCH ×2 (02:10→07:50)
--- NOTE | 2016-11-19 09:12 | PN ---
DATE: 11/19/2016 SUBJECTIVE: The patient has no complaints of any chest pain, no shortness of breath, no headaches, no dizziness. PHYSICAL EXAMINATION: VITAL SIGNS: Temperature is 97.8, pulse is 160, blood pressure 133/74, and respirations 20. GENERAL: The patient is lying in bed, flat, comfortable. HEENT: No oral lesion. Anicteric sclerae. Moist mucosa. NECK: No JVD, adenopathy, or thyromegaly. CARDIOVASCULAR: S1 and S2, regular. No murmurs, rubs, or gallops. LUNGS: Clear to auscultation bilaterally. No wheeze, rales, or rhonchi. ABDOMEN: Bowel sounds are positive, soft, nontender and nondistended. EXTREMITIES: no cyanosis, clubbing or edema. LABS: White count is 13.6 and hemoglobin 8.8, creatinine is 1.0. ASSESSMENT: 1. Acute exacerbation of chronic obstructive pulmonary disease exacerbation. 2. Low-grade bladder tumor. 3. Atrial fibrillation on Eliquis. 4. Anemia. 5. Do not resuscitate/do not intubate. PLAN: The patient had increase in her heart rate. She was given dose of Cardizem this morning. She is on verapamil. She is going to continue her Eliquis. She is on Rocephin for antibiotics. She is going to need to be on steroid. She is on a heart healthy diet. She is currently comfortable and breathing better. Tommie Xavier MD
--- NOTE | 2016-11-19 09:57 | CARD ---
APPROVED REPORT EKG Measurement Heart [id number] <Conclusion> Atrial fibrillation NSSTW changes Small q waves 2,3,F, possible IMI, age unknown Mild ST elevation in 3 No change
[2016-11-19] MEDS: diltiaZEM IVPB 100mg in NS 100 ML IV PRN (10:55)
[2016-11-19] MEDS: MethylPREDNISolone 40 mg Vial IVP SCH ×2 (10:55→21:29)
[2016-11-19] MEDS: Potassium Chloride 20 mEq ER Tab PO SCH (10:58)
[2016-11-19] MEDS: cefTRIAXone 1 gm 1 GM/100 ML BAG IVPB SCH (10:58)
[2016-11-19] MEDS: Nystatin 100,000 Units/gm Topical Pow(15 gm) TOP SCH ×2 (10:59→18:01)
--- NOTE | 2016-11-19 12:13 | CON ---
PULMONARY CONSULTATION DATE: 11/19/2016 REASON FOR CONSULTATION: Chronic obstructive pulmonary disease. REFERRING PHYSICIAN: Dr. Tommie Xavier. HISTORY OF PRESENT ILLNESS: The patient is an 86-year-old female, with past medical history significant for chronic obstructive pulmonary disease, atrial fibrillation on Eliquis, bladder tumor, congestive failure, cerebrovascular accident, who presents to [facility] with a three day history of worsening shortness of breath at rest, dyspnea on exertion, and cough. The patient denies sputum production. The patient also denies chest pain, coughing up of blood, or chest pain - made worse with deep respirations. There is no history of temperatures, chills, or infectious exposure. There is no history of night sweats, weight loss or appetite change prior to the above events. No history of leg or calf pains. No history of syncope or diaphoresis. No history of recent trauma or trauma. REVIEW OF SYSTEMS: No history of nausea, vomiting, or diarrhea. No acute urinary symptoms. No new neurological or musculoskeletal complaints. Rest of the review of systems are negative. ALLERGIES: NO KNOWN ALLERGIES. SOCIAL HISTORY: Positive for tobacco, negative for alcohol. FAMILY HISTORY: No inheritable diseases. HOME MEDICATIONS: Include Seroquel, Xanax, DuoNebs, Tylenol, verapamil, Lasix, Tenormin, and Eliquis. PHYSICAL EXAMINATION: GENERAL: The patient is mildly short of breath, but in no acute distress. She is not using accessory muscles for breathing. VITAL SIGNS: Temperature is 97.8, pulse on the monitor is 122, respiratory rate 20/22, blood pressure 110/65. Oxygen saturation on nasal cannula is 100%. HEENT: Normocephalic atraumatic. NECK: No JVD. CARDIOVASCULAR: Systolic ejection murmur at the lower left sternal border. No S3 gallop. LUNGS: Decreased breath sounds at the bases. Minimal rhonchi. Minimal wheezing. EXTREMITIES: No clubbing, cyanosis, or edema. Calves are nontender to palpation. GI: Abdomen is soft, nontender, nondistended. Bowel sounds are positive. SKIN: No acute rash. NEUROLOGIC: Limited at the present time. PERTINENT LABORATORY DATA: Chest x-ray was done yesterday and reviewed. There is chronic elevation of the right hemidiaphragm. There are no acute changes. Complete metabolic profile: BUN 26, glucose 113, B-type natriuretic peptide 5290. Rest of the metabolic profile is within normal limits. CBC: White count 13.6, hemoglobin 8.8, hematocrit 29.3, platelets of 293. IMPRESSION: 1. Acute bronchitis. 2. Chronic obstructive pulmonary disease. 3. Rapid atrial fibrillation. 4. Anemia. PLAN: The patient presents to [facility] with a three-day history of worsening pulmonary symptoms. I did review the chest x-ray - as above. There are no acute changes on the most recent film. On physical exam, the patient is in bronchospasm. However, the oxygen saturation is 100% on nasal cannula. I will continue the current low dose intravenous steroids for now. However, I will change the nebulizer treatments to Xopenex (rather than DuoNebs) - given the rapid atrial fibrillation. Cardiology evaluation - with Dr. Mike has been ordered. The patient does feel better this morning, and is clinically improved. Additional pulmonary intervention will be based on the clinical status of the patient. I will discuss the above with Dr. Xavier. Thank you very much for this pulmonary consultation. Anastacio Gamez MD NAIN
[2016-11-19] MEDS: Insulin Reg-LOW-Coverage SC SCH ×3 (12:38→22:21)
--- NOTE | 2016-11-19 15:47 | CON ---
DATE: 11/19/2016 REASON FOR CONSULTATION: Followup on atrial fibrillation with rapid ventricular rate, shortness of breath, COPD, cardiac evaluation, and CHF. BRIEF CLINICAL HISTORY: This is an 86-year-old female with past medical history significant for atrial fibrillation on anticoagulation, history of MR, TR, anemia, hypokalemia, CHF secondary to systolic dysfunction, COPD, CVA, came in yesterday with a shortness of breath and bringing some phlegm, found to be in atrial fibrillation with rapid ventricular rate. The patient was on Eliquis for atrial fibrillation and history of COPD. PAST MEDICAL HISTORY: Significant for COPD, CVA, cerebrovascular accident, chronic atrial fibrillation on Eliquis, hypertension, hyperlipidemia, congestive heart failure, severe mitral regurgitation, and severe tricuspid regurgitation. PREVIOUS CARDIAC WORKUP: As follows. The patient's echocardiography from April 2016, shows normal ejection fraction, severe mitral regurgitation, severe tricuspid regurgitation, and had stress test from 09/18/2014, that was negative for ischemia. The patient had repeat echocardiography done on 08/09/2016, showed ejection fraction 25%, trace aortic regurgitation, moderate to severe mitral regurgitation, moderate tricuspid regurgitation, RV systolic pressure of 68, and moderate pulmonary hypertension. ALLERGIES: NO KNOWN DRUG ALLERGIES. CURRENT MEDICATIONS: Currently, the patient is taking verapamil 80 mg 3 times a day, Seroquel, Nystatin, Lasix 40 mg twice a day, atenolol 25 mg daily, Eliquis 2.5 mg daily, Xanax, and acetaminophen. REVIEW OF SYSTEMS: Denies any chest pain or shortness of breath or any palpitation. A 14-point review of systems as per HPI. PHYSICAL EXAMINATION: As follows: VITAL SIGNS: Height of the patient is 5 feet , weight of the patient is 160 pounds, body mass index 25.8 kg/m2. Temperature afebrile, heart rate 53, and blood pressure 123/64. HEENT: PERRLA. Extraocular muscles are intact. NECK: Supple. No carotid bruits or thyromegaly. CHEST: Clear to auscultation. HEART: S1 and S2, regular. ABDOMEN: Soft. EXTREMITIES: Clubbing and cyanosis negative. LABORATORY DATA: Blood workup as follows: WBC 13.3, hemoglobin 8.8, hematocrit 29.3, and platelet count 293. Chemistry shows sodium 137, potassium 3.0, chloride 98, carbon dioxide 30, anion gap of 12, BUN 26, creatinine 1.0, BNP 5290. IMPRESSION: An 86-year-old female with past medical history significant mitral and tricuspid regurgitation, preserved left ventricular function, chronic atrial fibrillation, cerebrovascular accident, history of stress test in 2014 essentially negative, admitted with shortness of breath, decompensated congestive heart failure secondary to valvular heart disease, severe mitral regurgitation, right heart failure, chronic obstructive pulmonary disease, atrial fibrillation, and rapid ventricular rate. RECOMMENDATIONS: We will start Cardizem IV to control the heart and give gentle diuretics, COPD, avoid DuoNeb nebulizer, we will change to Xopenex. When the rate is controlled change to p.o. verapamil and beta-serenity. We will follow with you. Thank you Dr. Xavier for providing me the opportunity in taking care of your patient, Lisa Knutson. Amari Lan MD
[2016-11-19] MEDS: Levalbuterol 0.63 MG/3 ML Inhal Soln UD IH SCH ×2 (15:52→20:25)
[2016-11-19] MEDS: Budesonide 0.5 mg/2 ml Inhal Susp UD IH SCH (20:25)
[2016-11-20] MEDS: diltiaZEM IVPB 100mg in NS 100 ML IV PRN (02:15)
[2016-11-20] MEDS: Levalbuterol 0.63 MG/3 ML Inhal Soln UD IH SCH ×4 (02:37→19:43)
[2016-11-20 05:39] LABS: URINE BILIRUBIN NEGATIVE (NEGATIVE); URINE BLOOD MODERATE (NEGATIVE); URINE GLUCOSE (UA) NEGATIVE (NEGATIVE); URINE LEUKOCYTE ESTERASE TRACE Leu/uL (NEGATIVE); URINE NITRATE NEGATIVE (NEGATIVE); URINE PROTEIN NEGATIVE mg/dL (<30 mg/dL); URINE UROBILINOGEN 0.2 E.U./dL (<1 E.U./dL)
[2016-11-20 05:43] LABS: URINE APPEARANCE SL CLOUDY (CLEAR); URINE COLOR YELLOW (YELLOW)
[2016-11-20 06:02] LABS: URINE BACTERIA FEW (NEG); URINE EPITHELIAL CELLS 0 - 2 /hpf (0-5)
[2016-11-20 06:46] LABS: HEMOGLOBIN 9.1 g/dL (12.0-16.0); MEAN CELL VOLUME 85.1 fl (80.0-105.0); MEAN CORPUSCULAR HEMOGLOBIN 25.6 pg (25.0-35.0); MEAN PLATELET VOLUME 11.1 fl (7.0-11.0); PLATELET COUNT 314 10^3/uL (120.0-450.0); RBC 3.56 10^6/uL (3.5-6.1); RED CELL DISTRIBUTION WIDTH 22.1 % (11.5-14.5); WHITE BLOOD COUNT 18.4 10^3/ul (4.5-11.0)
--- NOTE | 2016-11-20 06:47 | PN ---
DATE: 11/20/2016 SUBJECTIVE: The patient appears more comfortable this morning. She is not short of breath at rest. PHYSICAL EXAMINATION: VITAL SIGNS: Temperature is 98.3, pulse 91, respiratory rate 18, blood pressure 112/68. Oxygen saturation on nasal cannula is 100%. HEENT: Normocephalic and atraumatic. NECK: No JVD. CARDIOVASCULAR: Systolic ejection murmur at the lower left sternal border. No S3 gallop. LUNGS: Decreased breath sounds at the bases. Minimal rhonchi. No wheezing this morning. EXTREMITIES: No clubbing, cyanosis, or edema. Calves are nontender to palpation. GI: Abdomen is soft, nontender, nondistended. Bowel sounds are positive. SKIN: No acute rash. NEUROLOGIC: Limited at the present time. IMPRESSION: 1. Acute bronchitis. 2. Chronic obstructive pulmonary disease. 3. Rapid atrial fibrillation. 4. Anemia. PLAN: The patient appears very comfortable this morning. She is not short of breath at rest. She states she is feeling much better overall. On physical exam, her bronchospasm is certainly less. In addition, the oxygen saturation on nasal cannula remains at 100%. I will continue with the current nebulizer treatments and decrease the intravenous steroid this morning. I would continue with the treatment for the atrial fibrillation as per cardiology. Input by Dr. Lan is noted. Clinical status on the patient has definitely improved. I will discuss the above with Dr. Xavier. Anastacio Gamez MD MTDD
[2016-11-20] MEDS: Budesonide 0.5 mg/2 ml Inhal Susp UD IH SCH ×2 (07:29→19:43)
[2016-11-20 08:17] LABS: BAND 1 % (0-2); LYMPHOCYTE 1 % (22.0-35.0); MONOCYTE 2 % (1.0-6.0); NEUTROPHIL 96 % (50.0-70.0); NUCLEATED RED BLOOD CELL 1 %
[2016-11-20 08:18] LABS: ANISOCYTOSIS 1+; MICROCYTOSIS 1+; POIKILOCYTOSIS SLIGHT
[2016-11-20 08:19] LABS: HYPOCHROMIA SLIGHT; OVALOCYTES SLIGHT; PLATELET ESTIMATE NORMAL (NORMAL); TEAR DROP CELLS SLIGHT
[2016-11-20] MEDS: Insulin Reg-LOW-Coverage SC SCH ×5 (08:36→22:00)
--- NOTE | 2016-11-20 08:42 | PN ---
DATE: 11/20/2016 SUBJECTIVE: The patient is currently uncomfortable. She was initially admitted to the hospital because of acute COPD and [facility]. She had an episode of rapid AFib most likely from the nebulizer treatment that she was receiving. The patient is currently uncomfortable. Her oxygen has improved. She was seen by cardiology and by pulmonary. She has been placed on IV Cardizem. We will await for Cardizem to cell changer to p.o. and then can discharge the patient home. PHYSICAL EXAMINATION: VITAL SIGNS: Temperature is 98.3, pulse of 97, blood pressure is 112/68 and respirations 19. GENERAL: The patient is lying in bed, flat, comfortable. HEENT: No oral lesion. Anicteric sclerae. Moist mucosa. NECK: No JVD, adenopathy, or thyromegaly. CARDIOVASCULAR: S1 and S2, regular. No murmurs, rubs, or gallops. LUNGS: Clear to auscultation bilaterally. No wheeze, rales, or rhonchi. ABDOMEN: Bowel sounds are positive, soft, nontender and nondistended. EXTREMITIES: no cyanosis, clubbing or edema. ASSESSMENT: 1. Acute chronic obstructive pulmonary disease exacerbation. 2. Atrial fibrillation with rapid rate. 3. Low-grade bladder tumor. 4. Anemia. 5. Do not resuscitate/do not intubate. 6. Dementia, Alzheimer's type. PLAN: The patient is on Cardizem drip. She is going to continue with Eliquis for her anticoagulation. She is on Lasix daily. She is receiving Rocephin for antibiotics. She is on prednisone. For her COPD, the patient is on Xopenex. She is going to continue on heart healthy diet. Tommie Xavier MD
[2016-11-20] MEDS: cefTRIAXone 1 gm 1 GM/100 ML BAG IVPB SCH (09:01)
[2016-11-20] MEDS: MethylPREDNISolone 40 mg Vial IVP SCH ×2 (09:02→21:05)
[2016-11-20] MEDS: Potassium Chloride 20 mEq ER Tab PO SCH (09:02)
[2016-11-20] MEDS: Nystatin 100,000 Units/gm Topical Pow(15 gm) TOP SCH ×2 (09:08→18:41)
[2016-11-20 10:40] LABS: CALCIUM 8.3 mg/dL (8.4-10.5)
[2016-11-20] MEDS: Levalbuterol 0.63 MG/3 ML Inhal Soln UD IH PRN ×2 (11:55→21:06)
--- NOTE | 2016-11-20 13:57 | PN ---
DATE: 11/20/2016 REASON FOR CONSULTATION: Followup atrial fibrillation, rapid rate, short of breath, COPD, cardiac evaluation, and CHF. SUBJECTIVE: The patient denies any chest pain, shortness of breath, or any palpitations. Feels a lot better. Currently on IV Cardizem 5 mL an hour. PHYSICAL EXAMINATION: GENERAL: Lying flat, sleeping and waking up, and does not appear in any respiratory distress. VITAL SIGNS: As follows; temperature afebrile, heart rate 85, and blood pressure 123/74. HEENT: PERRLA. Extraocular muscles are intact. NECK: Supple. No carotid bruits or thyromegaly. CHEST: Clear to auscultation. HEART: S1 and S2 regular. ABDOMEN: Soft. EXTREMITIES: Clubbing and cyanosis negative. LABORATORY DATA: Blood workup as follows: WBC 18.4, hemoglobin 9.1, hematocrit 30.3, and platelet count 314. Chemistry shows sodium 137, potassium 3.0, chloride 98, carbon dioxide 30, anion gap of 12, BUN 26, creatinine 1.0, and BNP 5230. IMPRESSION: Chronic atrial fibrillation admitted with rapid rate, short of breath, chronic obstructive pulmonary disease exacerbation, history of congestive heart failure, cardiomyopathy, ejection fraction 25%, stress test negative for ischemia on 09/18/2014, severe mitral regurgitation, tricuspid regurgitation, and right heart failure as well. RECOMMENDATIONS: Discontinue Cardizem. Continue IV verapamil, give dose of verapamil at 9 a.m. early one hour. Discontinue Cardizem at 10. Continue Eliquis dose adjusted, renal dose adjusted 2.5 b.i.d. and verapamil 80 mg 3 times a day. Continue gentle Lasix. Continue atenolol. Continue treatment of COPD. Thank you Dr. Xavier for providing me the opportunity in taking care of Lisa Knutson. Supplemental electrolytes as needed. We will repeat the blood workup in the morning. Today's blood workup is not available, order for tomorrow probably patient refused today. Amari Lan MD cc: DR. XAVIER
--- NOTE | 2016-11-20 17:01 | CARD ---
APPROVED REPORT EKG Measurement Heart [id number] <Conclusion> Atrial fibrillation with premature ventricular or aberrantly conducted complexes Abnormal ECG
[2016-11-20] MEDS ORDERED: Pantoprazole 40 mg EC Tab PO ONE (21:23)
[2016-11-20] MEDS ORDERED: Sodium Chloride 0.9% 250 ML IV STA (21:49)
[2016-11-20 22:03] LABS: ARTERIAL BLOOD GAS HCO3 14.5 mmol/L (21-28); ARTERIAL BLOOD GAS HEMOGLOBIN 9.2 g/dL (11.7-17.4); ARTERIAL BLOOD GAS O2 CAPACITY 13.1 mL/dl (16-24); ARTERIAL BLOOD GAS O2 CONTENT 13.1 ML/dl (15-23); ARTERIAL BLOOD GAS O2 SAT 99.9 % (95-98); ARTERIAL BLOOD GAS PCO2 24 mm/Hg (35-45); ARTERIAL BLOOD GAS PH 7.39 (7.35-7.45); ARTERIAL BLOOD GAS TCO2 15.2 mmol.L (22-28)
[2016-11-20] MEDS ORDERED: Sodium Chloride 0.9% 500 ML IV STA (23:41)
[2016-11-21 01:12] LABS: VENOUS BLOOD GAS BASE EXCESS -5.3 mmol/L (0.0-2.0); VENOUS BLOOD GAS PO2 49 mm/Hg (30-55); VENOUS BLOOD PH 7.31 (7.32-7.43)
[2016-11-21] MEDS: Levalbuterol 0.63 MG/3 ML Inhal Soln UD IH SCH ×4 (01:14→19:35)
[2016-11-21 01:19] LABS: MEAN CORPUSCULAR HEMOGLOBIN 25.9 pg (25.0-35.0); MEAN CORPUSCULAR HGB CONC 30.5 g/dl (31.0-37.0); MEAN PLATELET VOLUME 11.1 fl (7.0-11.0); PLATELET COUNT 351 10^3/uL (120.0-450.0); RBC 3.86 10^6/uL (3.5-6.1); RED CELL DISTRIBUTION WIDTH 22.1 % (11.5-14.5)
[2016-11-21 01:23] LABS: WHITE BLOOD COUNT 26.8 10^3/ul (4.5-11.0)
[2016-11-21 01:27] LABS: ALB/GLOB RATIO 1.2 (1.1-1.8); ALBUMIN 3.4 g/dL (3.0-4.8); CALCIUM 8.3 mg/dL (8.4-10.5); MAGNESIUM 2.2 mg/dL (1.7-2.2)
[2016-11-21 01:34] LABS: BAND 6 % (0-2); LYMPHOCYTE 4 % (22.0-35.0); MONOCYTE 3 % (1.0-6.0); NEUTROPHIL 87 % (50.0-70.0); PLATELET ESTIMATE NORMAL (NORMAL)
[2016-11-21 01:35] LABS: ANISOCYTOSIS SLIGHT; POIKILOCYTOSIS SLIGHT
[2016-11-21 01:38] LABS: TROPONIN I 0.02 ng/mL
--- NOTE | 2016-11-21 01:57 | CP.PCM.PN ---
<ARIAN LARSON - Last Filed: 11/21/16 01:50> Subjective - Date & Time of Evaluation Date of Evaluation: 11/20/16 Time of Evaluation: 09:35 - Subjective Subjective: RAPID RESPONSE NOTE: A rapid response was called for this patient at 2135 on 11/20/2016 after patient was found to be anxious, vomiting and short of breath with a pulse ox of 77% and a BP of 65/40. Patient was then given a nebulizer treatment and put on an oxygen venti mask with an FiO2 of 50%. She was then given a one liter bolus of normal saline at 250mls/hr. A chest xray and an ABG were ordered. Patient then had a pulse ox of 100% and her blood pressure normalized to 126/62. Objective - Vital Signs/Intake and Output Vital Signs (last 24 hours): Temp Pulse Resp BP Pulse Ox 98.1 F 71 24 65/40 L 77 11/20/16 19:35 11/20/16 19:35 11/20/16 19:35 11/20/16 19:35 11/20/16 19:35 - Medications Medications: Current Medications Acetaminophen (Tylenol 325mg Tab) 650 mg PO Q4H PRN PRN Reason: Pain, moderate (4-7) Last Admin: 11/20/16 20:38 Dose: 650 mg Alprazolam (Xanax) 0.25 mg PO Q6H PRN; Protocol PRN Reason: Anxiety Stop: 11/25/16 19:17 Last Admin: 11/20/16 18:40 Dose: 0.25 mg Apixaban (Eliquis) 2.5 mg PO BID [facility] PRN Reason: Protocol Last Admin: 11/20/16 18:38 Dose: 2.5 mg Atenolol (Tenormin) 25 mg PO DAILY [facility] Last Admin: 11/20/16 09:02 Dose: 25 mg Budesonide (Pulmicort Respules) 0.5 mg IH [id number] [facility] Last Admin: 11/20/16 19:43 Dose: 0.5 mg Furosemide (Lasix) 40 mg PO BID [facility] Last Admin: 11/20/16 18:40 Dose: Not Given Ceftriaxone Sodium (Rocephin 1 Gram Ivpb) 1 gm in 100 mls @ 100 mls/hr IVPB DAILY [facility] PRN Reason: Protocol Last Admin: 11/20/16 09:01 Dose: 100 mls/hr Doxycycline Hyclate 100 mg/ (Sodium Chloride) 100 mls @ 100 mls/hr IVPB Q12 [facility] PRN Reason: Protocol Last Admin: 11/20/16 23:04 Dose: 100 mls/hr Insulin Human Regular (Humulin R Low) 0 units SC ACHS [facility] PRN Reason: Protocol Last Admin: 11/20/16 22:00 Dose: Not Given Levalbuterol HCl (Xopenex) 0.63 mg IH [id number] [facility] Last Admin: 11/21/16 01:14 Dose: Not Given Levalbuterol HCl (Xopenex) 0.63 mg IH Q2 PRN PRN Reason: Shortness of Breath Last Admin: 11/20/16 21:06 Dose: 0.63 mg Methylprednisolone (Solu-Medrol) 30 mg IVP Q12 [facility] Last Admin: 11/20/16 21:05 Dose: 30 mg Nystatin (Nystop Topical Powder) 0 gm TOP BID [facility] Last Admin: 11/20/16 18:41 Dose: 1 applic Potassium Chloride (K-Dur 20 Meq Er Tab) 20 meq PO BRK [facility] Last Admin: 11/20/16 09:02 Dose: 20 meq Quetiapine Fumarate (Seroquel) 50 mg PO TID [facility] PRN Reason: Protocol Last Admin: 11/20/16 18:38 Dose: 50 mg Verapamil HCl (Calan Tab) 80 mg PO TID [facility] Last Admin: 11/20/16 18:41 Dose: Not Given - Labs Labs: 11/21/16 00:40 11/20/16 10:00 PT 11.6 Seconds (9.9-11.8) 11/18/16 12:15 INR 1.07 (0.93-1.08) 11/18/16 12:15 APTT 29.6 Seconds (23.7-30.8) 11/18/16 12:15 Assessment and Plan - Assessment and Plan (Free Text) Plan: 1. Respiratory Distress -likely secondary to aspiration pneumonia with new pulmonary effusion less likely -CXR done and difficult to compare to previous study based on patient positioning but possible RLL effusion -patient started on doxycycline and currently receiving ceftriaxone -will obtain chest CT in AM to assess for aspiration -patient has history of MR and special caution was used in IVF for this reason -ABG pending -will cont to monitor VS and labs <Varghese Rodriguez - Last Filed: 11/21/16 06:21> Objective - Vital Signs/Intake and Output Vital Signs (last 24 hours): Temp Pulse Resp BP Pulse Ox 98.1 F 62 22 68/58 L 95 11/21/16 00:01 11/21/16 05:19 11/21/16 00:01 11/21/16 00:01 11/21/16 00:01 - Medications Medications: Current Medications Acetaminophen (Tylenol 325mg Tab) 650 mg PO Q4H PRN PRN Reason: Pain, moderate (4-7) Last Admin: 11/20/16 20:38 Dose: 650 mg Alprazolam (Xanax) 0.25 mg PO Q6H PRN; Protocol PRN Reason: Anxiety Stop: 11/25/16 19:17 Last Admin: 11/20/16 18:40 Dose: 0.25 mg Apixaban (Eliquis) 2.5 mg PO BID [facility] PRN Reason: Protocol Last Admin: 11/20/16 18:38 Dose: 2.5 mg Atenolol (Tenormin) 25 mg PO DAILY [facility] Last Admin: 11/20/16 09:02 Dose: 25 mg Budesonide (Pulmicort Respules) 0.5 mg IH [id number] [facility] Last Admin: 11/20/16 19:43 Dose: 0.5 mg Furosemide (Lasix) 40 mg PO BID [facility] Last Admin: 11/20/16 18:40 Dose: Not Given Doxycycline Hyclate 100 mg/ (Sodium Chloride) 100 mls @ 100 mls/hr IVPB Q12 [facility] PRN Reason: Protocol Last Admin: 11/20/16 23:04 Dose: 100 mls/hr Sodium Bicarbonate 100 meq/ (Dextrose) 600 mls @ 75 mls/hr IV .Q8H [facility] Last Admin: 11/21/16 03:19 Dose: 75 mls/hr Cefepime HCl (Maxipime 1gm) 1 gm in 100 mls @ 100 mls/hr IVPB Q12 [facility] PRN Reason: Protocol Insulin Human Regular (Humulin R Low) 0 units SC ACHS [facility] PRN Reason: Protocol Last Admin: 11/20/16 22:00 Dose: Not Given Levalbuterol HCl (Xopenex) 0.63 mg IH [id number] [facility] Last Admin: 11/21/16 01:14 Dose: Not Given Levalbuterol HCl (Xopenex) 0.63 mg IH Q2 PRN PRN Reason: Shortness of Breath Last Admin: 11/20/16 21:06 Dose: 0.63 mg Methylprednisolone (Solu-Medrol) 30 mg IVP Q12 [facility] Last Admin: 11/20/16 21:05 Dose: 30 mg Nystatin (Nystop Topical Powder) 0 gm TOP BID [facility] Last Admin: 11/20/16 18:41 Dose: 1 applic Quetiapine Fumarate (Seroquel) 50 mg PO TID [facility] PRN Reason: Protocol Last Admin: 11/20/16 18:38 Dose: 50 mg Verapamil HCl (Calan Tab) 80 mg PO TID [facility] Last Admin: 11/20/16 18:41 Dose: Not Given - Labs Labs: 11/21/16 05:20 11/21/16 05:20 PT 11.6 Seconds (9.9-11.8) 11/18/16 12:15 INR 1.07 (0.93-1.08) 11/18/16 12:15 APTT 29.6 Seconds (23.7-30.8) 11/18/16 12:15 Attending/Attestation - Attestation I have personally seen and examined this patient.: Yes I have fully participated in the care of the patient.: Yes I have reviewed all pertinent clinical information, including history, physical exam and plan: Yes Notes (Text): Patient received bolus of 500ml not litre, stat labs drawn later showed worsening metabolic acidosis, lilian, elevated wbc, hyperkalemia, patient was tried oral kayexalate but didn't take. She was given dextrose iv, subq insulin and then bicarb drip in D10 started to control hyperkalemia by improving acidosis and providing glucose which can secrete endogenous insulin. Abx changed to cefepime and doxycycline, repeat labs ordered this am. Attending notified last night and also pt was seen by primary culvert installer this am.
[2016-11-21] MEDS ORDERED: Sod Polystyrene Sulf 15 gm/60 ml Oral Susp PO ONE (02:04)
[2016-11-21] MEDS ORDERED: Insulin Regular 1 UNITS/0.01 ML ML SC STA (02:47)
[2016-11-21] MEDS ORDERED: Dextrose 50% SYRINGE Inj (50 ml) IVP ONE (02:47)
[2016-11-21] MEDS: DEXTROSE 10% IV SCH ×3 (03:19→22:40)
[2016-11-21] MEDS: SODIUM BICARBONATE IV SCH ×3 (03:19→22:40)
[2016-11-21] MEDS: WATER IV SCH ×3 (03:19→22:40)
[2016-11-21 05:50] LABS: HEMOGLOBIN 10.3 g/dL (12.0-16.0); MEAN CELL VOLUME 84.6 fl (80.0-105.0); MEAN CORPUSCULAR HEMOGLOBIN 25.6 pg (25.0-35.0); MEAN CORPUSCULAR HGB CONC 30.2 g/dl (31.0-37.0); MEAN PLATELET VOLUME 10.8 fl (7.0-11.0); PLATELET COUNT 329 10^3/uL (120.0-450.0); RBC 4.03 10^6/uL (3.5-6.1); WHITE BLOOD COUNT 19.7 10^3/ul (4.5-11.0)
[2016-11-21 05:54] LABS: CALCIUM 8.3 mg/dL (8.4-10.5); MAGNESIUM 2.1 mg/dL (1.7-2.2)
--- NOTE | 2016-11-21 06:16 | PN ---
DATE: 11/21/2016 PULMONARY NOTE SUBJECTIVE: The patient appears lethargic this morning. She is arousable. She is mildly short of breath, but in no acute distress. PHYSICAL EXAMINATION VITAL SIGNS: Temperature is 98.1, pulse on the monitor is 84, respiratory rate 22, blood pressure 90/50. Last oxygen saturation measured-on a nonrebreather mask-95%. HEENT: Normocephalic, atraumatic. NECK: No JVD. CARDIOVASCULAR: Systolic ejection murmur at the lower left sternal border. No S3 gallop. LUNGS: Decreased breath sounds with crackles at the right base, minimal bilateral rhonchi. No wheezing. EXTREMITIES: No clubbing, cyanosis, or edema. Calves are nontender to palpation. GASTROINTESTINAL: Abdomen is soft, nontender, nondistended. Bowel sounds are positive. SKIN: No acute rash. NEUROLOGIC: Limited at the present time. CURRENT LABORATORY DATA: Chest x-ray was done last night and reviewed. There is a new right lower lobe infiltrate noted. There may also be a small pleural effusion, but this is hard to tell. IMPRESSION: 1. Right lower lobe pneumonia, rule out aspiration. 2. Acute bronchitis. 3. Advanced chronic obstructive pulmonary disease. 4. Rapid atrial fibrillation. 5. Anemia. PLAN: The patient appears lethargic this morning. She is arousable. She is mildly short of breath, but in no acute distress. I did discuss the case with the night nurse at length. The night nurse stated that during her shift, the patient experienced hypotension and oxygen desaturation. The blood pressure did improve with a fluid bolus. Currently, the oxygen saturation is 95% on a nonrebreather. I did review the chest x-ray as above. A new right lower lobe infiltrate is seen, possibly consistent with aspiration pneumonia. The patient has been re-pancultured. The patient has also been placed on intravenous Rocephin and intravenous doxycycline. On physical exam, there is mild bronchospasm noted. I will continue the current nebulizer treatments and low-dose intravenous steroids for now. CAT scan of the chest has been ordered. At this point in time, I would be hesitant to put this patient under a CAT scanner. The patient's overall clinical status and prognosis remains very guarded at best. I will discuss the above with Dr. Xavier. Anastacio Gamez MD MTDOdilia
[2016-11-21 06:30] LABS: VENOUS BLOOD GAS BASE EXCESS -0.8 mmol/L (0.0-2.0); VENOUS BLOOD GAS PO2 42 mm/Hg (30-55); VENOUS BLOOD PH 7.38 (7.32-7.43)
[2016-11-21 06:53] LABS: BAND 5 % (0-2); NEUTROPHIL 78 % (50.0-70.0)
[2016-11-21 06:54] LABS: ANISOCYTOSIS 1+; LYMPHOCYTE 9 % (22.0-35.0); METAMYELOCYTE 1 %; MONOCYTE 5 % (1.0-6.0); MYELOCYTE 2 %; OVALOCYTES SLIGHT; PLATELET ESTIMATE NORMAL (NORMAL)
--- NOTE | 2016-11-21 07:34 | RAD ---
HISTORY: Post [employer] COMPARISON: 11/18/2016 chest x-ray -portable and CT chest abdomen and pelvic 08/07/2016 without IV contrast FINDINGS: LUNGS: This limited - study rotated towards the right. Chin obscuring parts of the medial right lung apex. Right hilum appears abnormally prominent. Underlying central mass and/or lymphadenopathy and or prominent vascularity here (with the rotation are some considerations. This study was without IV contrast to better assess the right hilum. The opacification at the right lung base has increased-underlying infiltrate atelectasis in increasing right pleural effusions are considerations. Small left pleural effusion also likely. Background mild interstitial lung disease and mild central pulmonary venous congestion suspect. PLEURA: As above. No pneumothorax CARDIOVASCULAR: Cardiomegaly. Central pulmonary vascular/venous congestion and prominent ectatic -atherosclerotic aorta and pulmonary vasculature suggested OSSEOUS STRUCTURES: No significant abnormalities. VISUALIZED UPPER ABDOMEN: Normal. OTHER FINDINGS: None. IMPRESSION: Interval increased opacification right inferior hemithorax. Increasing consolidation - infiltrate and/or atelectasis with increasing right pleural effusion suggested. Interval increased small left pleural effusion. Current study's accentuation of the right hilar prominence is noted. If clinically indicated in this elderly patient, contrast-enhanced CT chest imaging would be more sensitive in the clarifying this anatomy
[2016-11-21 07:48] LABS: ALB/GLOB RATIO 1.2 (1.1-1.8); ALBUMIN 3.4 g/dL (3.0-4.8)
[2016-11-21 07:59] LABS: TROPONIN I 0.04 ng/mL
[2016-11-21] MEDS: Insulin Reg-LOW-Coverage SC SCH ×4 (08:08→22:00)
[2016-11-21] MEDS: Budesonide 0.5 mg/2 ml Inhal Susp UD IH SCH ×2 (08:15→19:35)
--- NOTE | 2016-11-21 08:19 | PN ---
DATE: 11/21/2016 SUBJECTIVE: The patient has no complaints of any chest pain, shortness of breath. She did have an episode yesterday of hypoxia, her white count has been elevated. PHYSICAL EXAMINATION: VITAL SIGNS: Temperature is 98.1, pulse of 62, blood pressure is 68/58, and respirations 22. GENERAL: The patient is lying in bed, flat, comfortable. HEENT: No oral lesion. Anicteric sclerae. Moist mucosa. NECK: No JVD, adenopathy, or thyromegaly. CARDIOVASCULAR: S1 and S2, regular. No murmurs, rubs, or gallops. LUNGS: Clear to auscultation bilaterally. No wheeze, rales, or rhonchi. ABDOMEN: Bowel sounds are positive, soft, nontender and nondistended. EXTREMITIES: No cyanosis, clubbing or edema. LABORATORY DATA: White count of 19.7, hemoglobin 10.3, creatinine is 2.0, potassium is 5.5. ASSESSMENT: 1. Hypoxia. 2. Sepsis. 3. Possible aspiration. 4. Acute chronic obstructive pulmonary disease. 5. Atrial fibrillation. 6. Dementia, Alzheimer type. 7. Low-grade bladder tumor. 8. Anemia. 9. Hypotension. PLAN: The patient has repeat blood work, it has been ordered for this morning. The patient is in DNR/DNI. The patient has verapamil for her atrial fibrillation. She is on Eliquis for her atrial fibrillation as well. She is on antibiotics with doxycycline. She is being followed by Dr. Gamez and by Dr. Lan. We will get ID to evaluate the patient as well. The patient is currently on telemetry monitoring, we will continue. The patient is receiving budesonide twice a day, she is on Rocephin for antibiotics. She is receiving Solu-Medrol. She is on atenolol. She does have neutrophils and bands on her blood work. Tommie Xavier MD
--- NOTE | 2016-11-21 09:47 | CP.PCM.CON ---
History of Present Illness - History of Present Illness History of Present Illness: 86 year old female with PMH of HTN, dyslipidemia, S/P cerebrovascular accident, chronic atrial fibrillation, COPD, CHF was brought in to [facility] because of shortness of breath and some cough. There is no note of feve or chills, no sputum production, no abdominal pain, no headache or dizziness, no chest pain, no diarrhea, no dysuria. CXR was done in the ED, showing increased opacity on the right. Infectious diseases consult is requested to further evaluate and manage. Review of Systems - Review of Systems All systems: reviewed and no additional remarkable complaints except (as per HPI ) Past Patient History - Infectious Disease Hx of Infectious Diseases: None - Tetanus Immunizations Tetanus Immunization: Unknown - Past Medical History & Family History Past Medical History?: Yes - Past Social History Smoking Status: Former Smoker - CARDIAC Hx Cardiac Disorders: Yes (chronic AFib,) Hx Congestive Heart Failure: Yes Hx Hypertension: Yes - PULMONARY Hx Chronic Obstructive Pulmonary Disease (COPD): Yes - NEUROLOGICAL HX Cerebrovascular Accident: Yes - HEENT Hx HEENT Problems: Yes Hx Cataracts: Yes - RENAL Hx Chronic Kidney Disease: No - ENDOCRINE/METABOLIC Hx Diabetes Mellitus Type 2: Yes - HEMATOLOGICAL/ONCOLOGICAL Hx Blood Disorders: Yes Hx AIDS: No Hx Anemia: Yes - INTEGUMENTARY Hx Dermatological Problems: Yes Other/Comment: bright red buttocks/sacrum, ble slight redness, thick hard toenails both feet , variscosities both feet, eccymotic areas both arms, small bruises both knees, left forehead small 0.02cm scab - MUSCULOSKELETAL/RHEUMATOLOGICAL Hx Falls: No - GASTROINTESTINAL Hx Gastrointestinal Disorders: Yes (hx c dif) - GENITOURINARY/GYNECOLOGICAL Hx Genitourinary Disorders: Yes Hx Hematuria: Yes Hx Incontinence: Yes Hx Urinary Tract Infection: Yes - PSYCHIATRIC Hx Emotional Abuse: No Hx Physical Abuse: No - SURGICAL HISTORY Hx Joint Replacement: Yes (right hip) - ANESTHESIA Hx Anesthesia Reactions: No Hx Malignant Hyperthermia: No Meds Allergies/Adverse Reactions: Allergies Allergy/AdvReac Type Severity Reaction Status Date / Time No Known Allergies Allergy Verified 10/27/16 11:55 - Medications Medications: Current Medications Acetaminophen (Tylenol 325mg Tab) 650 mg PO Q4H PRN PRN Reason: Pain, moderate (4-7) Last Admin: 11/20/16 20:38 Dose: 650 mg Alprazolam (Xanax) 0.25 mg PO Q6H PRN; Protocol PRN Reason: Anxiety Stop: 11/25/16 19:17 Last Admin: 11/20/16 18:40 Dose: 0.25 mg Apixaban (Eliquis) 2.5 mg PO BID TARSHA PRN Reason: Protocol Last Admin: 11/20/16 18:38 Dose: 2.5 mg Atenolol (Tenormin) 25 mg PO DAILY [facility] Last Admin: 11/20/16 09:02 Dose: 25 mg Budesonide (Pulmicort Respules) 0.5 mg IH [id number] [facility] Last Admin: 11/20/16 19:43 Dose: 0.5 mg Furosemide (Lasix) 40 mg PO BID [facility] Last Admin: 11/20/16 18:40 Dose: Not Given Doxycycline Hyclate 100 mg/ (Sodium Chloride) 100 mls @ 100 mls/hr IVPB Q12 TAR[facility] PRN Reason: Protocol Last Admin: 11/20/16 23:04 Dose: 100 mls/hr Sodium Bicarbonate 100 meq/ (Dextrose) 600 mls @ 75 mls/hr IV .Q8H [facility] Last Admin: 11/21/16 03:19 Dose: 75 mls/hr Cefepime HCl (Maxipime 1gm) 1 gm in 100 mls @ 100 mls/hr IVPB DAILY [facility] PRN Reason: Protocol Insulin Human Regular (Humulin R Low) 0 units SC ACHS TARSHA PRN Reason: Protocol Last Admin: 11/20/16 22:00 Dose: Not Given Levalbuterol HCl (Xopenex) 0.63 mg IH [id number] [facility] Last Admin: 11/21/16 01:14 Dose: Not Given Levalbuterol HCl (Xopenex) 0.63 mg IH Q2 PRN PRN Reason: Shortness of Breath Last Admin: 11/20/16 21:06 Dose: 0.63 mg Methylprednisolone (Solu-Medrol) 30 mg IVP Q12 [facility] Last Admin: 11/20/16 21:05 Dose: 30 mg Nystatin (Nystop Topical Powder) 0 gm TOP BID [facility] Last Admin: 11/20/16 18:41 Dose: 1 applic Quetiapine Fumarate (Seroquel) 50 mg PO TID TARSHA PRN Reason: Protocol Last Admin: 11/20/16 18:38 Dose: 50 mg Verapamil HCl (Calan Tab) 80 mg PO TID TAR[facility] Last Admin: 11/20/16 18:41 Dose: Not Given Physical Exam - Constitutional Appears: Non-toxic, No Acute Distress - Head Exam Head Exam: NORMAL INSPECTION - ENT Exam ENT Exam: Mucous Membranes Moist - Neck Exam Neck exam: Negative for: Lymphadenopathy, Meningismus - Respiratory Exam Respiratory Exam: Decreased Breath Sounds - Cardiovascular Exam Cardiovascular Exam: +S1, +S2 - GI/Abdominal Exam GI & Abdominal Exam: Soft. absent: Tenderness Results - Vital Signs Recent Vital Signs: Last Vital Signs Temp 98.6 F 11/21/16 06:00 Pulse 63 11/21/16 06:00 Resp 18 11/21/16 06:00 BP 119/68 11/21/16 06:00 Pulse Ox 100 11/21/16 06:00 - Labs Result Diagrams: 11/21/16 05:20 11/21/16 05:20 Labs: Laboratory Results - last 24 hr 11/20/16 11/20/16 11/20/16 05:45 07:39 10:00 WBC RBC Hgb Hct MCV MCH MCHC RDW Plt Count MPV Neutrophils % (Manual) 96 H Band Neutrophils % 1 Lymphocytes % (Manual) 1 L Monocytes % (Manual) 2 Metamyelocytes % Myelocytes % Nucleated RBC % 1 Platelet Evaluation Normal Hypochromasia Slight Poikilocytosis (manual Slight Anisocytosis (manual) 1+ Microcytosis (manual) 1+ Tear Drop Cells Slight Ovalocytes Slight pCO2 pO2 HCO3 ABG pH ABG Total CO2 ABG O2 Saturation ABG O2 Content ABG Base Excess ABG Hemoglobin ABG Carboxyhemoglobin POC ABG HHb (Measured) ABG Methemoglobin ABG O2 Capacity VBG pH VBG pCO2 VBG HCO3 VBG Total CO2 VBG O2 Sat (Calc) VBG Base Excess VBG Potassium Hgb O2 Saturation Glucose Lactate FiO2 Sodium 134 Potassium 4.8 Chloride 101 Carbon Dioxide 21 Anion Gap 17 BUN 41 H Creatinine 1.3 Est GFR ( Amer) 47 Est GFR (Non-Af Amer) 39 POC Glucose (mg/dL) 131 H Random Glucose 183 H Calcium 8.3 L Phosphorus 4.1 Magnesium 2.0 Total Bilirubin AST ALT Alkaline Phosphatase Troponin I Total Protein Albumin Globulin Albumin/Globulin Ratio Venous Blood Potassium 11/20/16 11/20/16 11/20/16 11:22 16:25 21:59 WBC RBC Hgb Hct MCV MCH MCHC RDW Plt Count MPV Neutrophils % (Manual) Band Neutrophils % Lymphocytes % (Manual) Monocytes % (Manual) Metamyelocytes % Myelocytes % Nucleated RBC % Platelet Evaluation Hypochromasia Poikilocytosis (manual Anisocytosis (manual) Microcytosis (manual) Tear Drop Cells Ovalocytes pCO2 24 L pO2 229.0 H HCO3 14.5 L ABG pH 7.39 ABG Total CO2 15.2 L ABG O2 Saturation 99.9 H ABG O2 Content 13.1 L ABG Base Excess -9.2 L ABG Hemoglobin 9.2 L ABG Carboxyhemoglobin 2.0 H POC ABG HHb (Measured) 0.1 ABG Methemoglobin 0.9 ABG O2 Capacity 13.1 L VBG pH VBG pCO2 VBG HCO3 VBG Total CO2 VBG O2 Sat (Calc) VBG Base Excess VBG Potassium Hgb O2 Saturation 97.0 Glucose Lactate FiO2 100.0 Sodium Potassium Chloride Carbon Dioxide Anion Gap BUN Creatinine Est GFR ( Amer) Est GFR (Non-Af Amer) POC Glucose (mg/dL) 188 H 172 H Random Glucose Calcium Phosphorus Magnesium Total Bilirubin AST ALT Alkaline Phosphatase Troponin I Total Protein Albumin Globulin Albumin/Globulin Ratio Venous Blood Potassium 11/21/16 11/21/16 11/21/16 00:40 00:40 00:50 WBC 26.8 H* D RBC 3.86 Hgb 10.0 L Hct 32.8 L MCV 85.0 MCH 25.9 MCHC 30.5 L RDW 22.1 H Plt Count 351 MPV 11.1 H Neutrophils % (Manual) 87 H Band Neutrophils % 6 H Lymphocytes % (Manual) 4 L Monocytes % (Manual) 3 Metamyelocytes % Myelocytes % Nucleated RBC % Platelet Evaluation Normal Hypochromasia Poikilocytosis (manual Slight Anisocytosis (manual) Slight Microcytosis (manual) Tear Drop Cells Ovalocytes pCO2 pO2 49 HCO3 ABG pH ABG Total CO2 ABG O2 Saturation ABG O2 Content ABG Base Excess ABG Hemoglobin ABG Carboxyhemoglobin POC ABG HHb (Measured) ABG Methemoglobin ABG O2 Capacity VBG pH 7.31 L VBG pCO2 41.0 VBG HCO3 20.6 L VBG Total CO2 21.9 L VBG O2 Sat (Calc) 84.8 H VBG Base Excess -5.3 L VBG Potassium 6.1 H Hgb O2 Saturation Glucose 138 H Lactate 4.7 H* FiO2 21.0 Sodium 131 L 131.0 L Potassium 6.0 H* D Chloride 98 99.0 Carbon Dioxide 17 L Anion Gap 22 H BUN 55 H Creatinine 1.9 H Est GFR ( Amer) 30 Est GFR (Non-Af Amer) 25 POC Glucose (mg/dL) Random Glucose 122 H Calcium 8.3 L Phosphorus Magnesium 2.2 Total Bilirubin 0.5 AST 34 ALT 75 H Alkaline Phosphatase 85 Troponin I 0.02 D Total Protein 6.3 Albumin 3.4 Globulin 2.9 Albumin/Globulin Ratio 1.2 Venous Blood Potassium 6.1 H 11/21/16 11/21/16 11/21/16 05:20 05:20 06:20 WBC 19.7 H D RBC 4.03 Hgb 10.3 L Hct 34.1 L MCV 84.6 MCH 25.6 MCHC 30.2 L RDW 22.0 H Plt Count 329 MPV 10.8 Neutrophils % (Manual) 78 H Band Neutrophils % 5 H Lymphocytes % (Manual) 9 L Monocytes % (Manual) 5 Metamyelocytes % 1 Myelocytes % 2 Nucleated RBC % Platelet Evaluation Normal Hypochromasia Poikilocytosis (manual Anisocytosis (manual) 1+ Microcytosis (manual) Tear Drop Cells Ovalocytes Slight pCO2 pO2 42 HCO3 ABG pH ABG Total CO2 ABG O2 Saturation ABG O2 Content ABG Base Excess ABG Hemoglobin ABG Carboxyhemoglobin POC ABG HHb (Measured) ABG Methemoglobin ABG O2 Capacity VBG pH 7.38 VBG pCO2 41.0 VBG HCO3 24.3 VBG Total CO2 25.6 VBG O2 Sat (Calc) 77.1 H VBG Base Excess -0.8 L VBG Potassium 5.9 H Hgb O2 Saturation Glucose 148 H Lactate 3.3 H FiO2 21.0 Sodium 133 133.0 Potassium 5.5 H Chloride 96 98.0 Carbon Dioxide 22 Anion Gap 21 H BUN 59 H Creatinine 2.0 H Est GFR ( Amer) 28 Est GFR (Non-Af Amer) 24 POC Glucose (mg/dL) Random Glucose 142 H Calcium 8.3 L Phosphorus 6.2 H Magnesium 2.1 Total Bilirubin AST ALT Alkaline Phosphatase Troponin I Total Protein Albumin Globulin Albumin/Globulin Ratio Venous Blood Potassium 5.9 H 11/21/16 07:23 WBC RBC Hgb Hct MCV MCH MCHC RDW Plt Count MPV Neutrophils % (Manual) Band Neutrophils % Lymphocytes % (Manual) Monocytes % (Manual) Metamyelocytes % Myelocytes % Nucleated RBC % Platelet Evaluation Hypochromasia Poikilocytosis (manual Anisocytosis (manual) Microcytosis (manual) Tear Drop Cells Ovalocytes pCO2 pO2 HCO3 ABG pH ABG Total CO2 ABG O2 Saturation ABG O2 Content ABG Base Excess ABG Hemoglobin ABG Carboxyhemoglobin POC ABG HHb (Measured) ABG Methemoglobin ABG O2 Capacity VBG pH VBG pCO2 VBG HCO3 VBG Total CO2 VBG O2 Sat (Calc) VBG Base Excess VBG Potassium Hgb O2 Saturation Glucose Lactate FiO2 Sodium Potassium Chloride Carbon Dioxide Anion Gap BUN Creatinine Est GFR ( Amer) Est GFR (Non-Af Amer) POC Glucose (mg/dL) 129 H Random Glucose Calcium Phosphorus Magnesium Total Bilirubin AST ALT Alkaline Phosphatase Troponin I Total Protein Albumin Globulin Albumin/Globulin Ratio Venous Blood Potassium Assessment & Plan - Assessment and Plan (Free Text) Plan: Assessment systemic inflammatory response syndrome, R/O healthcare-associated pneumonia on the right, in this patient with probable acute bronchitis history of acute diverticulitis and C. diff. colitis history of C.diff. colitis history of E. faecalis bacteremia probably urine as the source HTN dyslipidemia S/P cerebrovascular accident chronic atrial fibrillation COPD CHF Plan patient started on Cefepime and Doxycycline pending blood cx, PCT; CT chest is to be done and we will await results reviewed dr. Gamez's evaluation and recommendations will monitor clinically
[2016-11-21] MEDS ORDERED: Sod Polystyrene Sulf 15 gm/60 ml Oral Susp PO STA (09:50)
[2016-11-21] MEDS: Nystatin 100,000 Units/gm Topical Pow(15 gm) TOP SCH ×2 (10:15→18:25)
[2016-11-21] MEDS: Cefepime 1gm in NS 100ml 1 GM/100 ML BAG IVPB SCH (10:16)
[2016-11-21] MEDS: MethylPREDNISolone 40 mg Vial IVP SCH ×2 (10:17→22:43)
--- NOTE | 2016-11-21 12:27 | PN ---
DATE: 11/21/2016 REASON FOR CONSULTATION: Followup AFib paroxysmal, rapid rate, now rate is well controlled. This morning converted to normal sinus. History of COPD, CHF. SUBJECTIVE: The patient is lying flat, feels much better. Denies any chest pain, shortness of breath, or any palpitations. PHYSICAL EXAMINATION: GENERAL: Lying flat, not in apparent distress. VITAL SIGNS: As follows; temperature afebrile, heart rate 63, and blood pressure 119/68. HEENT: PERRLA. Extraocular muscles are intact. NECK: Supple. No carotid bruits or thyromegaly. CHEST: Clear to auscultation. HEART: S1 and S2 regular. ABDOMEN: Soft. EXTREMITIES: Clubbing and cyanosis negative. Telemetry, the patient converted to normal sinus. LABORATORY DATA: Blood workup as follows: WBC 19.7, hemoglobin 10.3, hematocrit 34.1, and platelet count 329. Chemistry shows sodium 137, potassium 5.5, chloride 96, carbon dioxide 22, anion gap of 21, BUN 59, creatinine 2. Troponin 0.04. IMPRESSION: Paroxysmal atrial fibrillation, now converted to normal sinus, urinary tract infection, sepsis, elevated WBC, chronic obstructive pulmonary disease exacerbation, history of congestive heart failure, cardiomyopathy, ejection fraction 25%, last stress test is negative on 09/18/2014 for ischemia, severe mitral and severe tricuspid regurgitation, and right heart failure. RECOMMENDATIONS: Continue verapamil, continue Eliquis, continue gentle diuretics, continue atenolol, continue treatment for COPD. Avoid DuoNeb nebulizer treatment, continue Xopenex to prevent go back into tachycardia. Continue 25 mg of atenolol and continue Cardizem. We will get EKG sinus rhythm and will discontinue telemetry. We will give Kayexalate because the potassium is 5.5 probably secondary to steroid. We will follow with you. Thank you Dr. Xavier for providing me the opportunity in taking care of the patient. Amari Lan MD
[2016-11-21] MEDS ORDERED: Pantoprazole 40 mg EC Tab PO ONE (21:23)
--- NOTE | 2016-11-22 00:54 | CARD ---
APPROVED REPORT EKG Measurement Heart [id number] <Conclusion> Normal sinus rhythm Nonspecific ST abnormality Abnormal ECG
--- NOTE | 2016-11-22 01:04 | CARD ---
APPROVED REPORT EKG Measurement Heart [id number] <Conclusion> Atrial fibrillation with a competing junctional pacemaker Abnormal ECG
[2016-11-22] MEDS: Levalbuterol 0.63 MG/3 ML Inhal Soln UD IH SCH ×4 (01:15→20:04)
--- NOTE | 2016-11-22 03:56 | CON ---
HISTORY OF PRESENT ILLNESS: The patient is an 86-year-old female with long history of dementia. The patient has multiple medical issues including bladder tumor, chronic atrial fibrillation, history of delirium, COPD, CHF, CVA with no residual weakness. The patient was sent from the shelter for evaluation of respiratory distress and a psychiatric consult was called for evaluation of worsening of dementia and altered mental status. This health underwriter is very similar with this patient from the previous admission on the medical side, which took place less than a month ago. The patient was seen and examined today. The patient presented to be alert and disoriented. The patient feels that she is at home. There is no option to have meaningful conversation. The patient states that she is not feeling well, was not able to explain why. VITAL SIGNS: Stable. Temperature 97.2, pulse 66, blood pressure 122/68 and respirations 19. MEDICATIONS: Reviewed. The patient was on Tylenol, atenolol, cefepime was started, Lasix, insulin. The patient also is on Zanaflex. Ativan 0.5 mg 3 times a day will be started by this health underwriter. The patient is on Solu-Medrol. Seroquel 50 mg 3 times a day scheduled by medical team. The patient is on verapamil. In case the patient would have difficulty to fall asleep and to stay asleep Sonata will be started. LABORATORY DATA: Labs reviewed. The patient has leukocytosis. WBC 19.7, hemoglobin and hematocrit are 10.3 and 34.1. Coagulation reviewed. Chemistry reviewed. Potassium 5.5 which is elevated, but it is better to compare with yesterday. Blood in urine and leukocyte esterase trace, most likely the patient has urinary tract infection. The patient was seen by infectious disease doctor. Please see notes for more detailed information. Chest x-ray was done showing increased opacity on the right. MENTAL STATUS EXAMINATION: As this health underwriter described above, the patient is confused. The patient feels that she is at home. Intermittent eye contact. Speech was under productive, slurred. Mood described "I don't feel good." Affect was flat. Thought process, circumstantial and tangential. Thought content, the patient was not be able to comprehend questions about hallucinations and thoughts of killing herself or others and psychotic symptoms. Insight and judgment impaired. Impulses are not predictable. IMPRESSION: Delirium and dementia, multiple medical issues. PLAN: Medications reviewed. P.r.n. medications started. Continue Seroquel. Sonata was initiated 5 mg at night time as needed. Xanax was discontinued. Ativan was started 0.5 mg 3 times a day scheduled. We will follow up and advise accordingly. Thank you very much for letting me participate in the care of your patient. Adriana Davison MD
[2016-11-22 06:52] LABS: ALB/GLOB RATIO 1.1 (1.1-1.8); ALBUMIN 3.1 g/dL (3.0-4.8); CALCIUM 7.8 mg/dL (8.4-10.5)
[2016-11-22 06:54] LABS: HEMOGLOBIN 8.5 g/dL (12.0-16.0); MEAN CORPUSCULAR HEMOGLOBIN 25.8 pg (25.0-35.0); MEAN PLATELET VOLUME 10.8 fl (7.0-11.0); RBC 3.29 10^6/uL (3.5-6.1); WHITE BLOOD COUNT 16.3 10^3/ul (4.5-11.0)
[2016-11-22] MEDS: Budesonide 0.5 mg/2 ml Inhal Susp UD IH SCH ×2 (07:09→20:03)
[2016-11-22] MEDS: Insulin Reg-LOW-Coverage SC SCH ×4 (08:37→23:40)
[2016-11-22 10:13] LABS: HEMOGLOBIN 9.1 g/dL (12.0-16.0); MEAN CELL VOLUME 86.5 fl (80.0-105.0); MEAN CORPUSCULAR HEMOGLOBIN 25.6 pg (25.0-35.0); MEAN CORPUSCULAR HGB CONC 29.6 g/dl (31.0-37.0); MEAN PLATELET VOLUME 10.8 fl (7.0-11.0); RBC 3.55 10^6/uL (3.5-6.1); RED CELL DISTRIBUTION WIDTH 22.1 % (11.5-14.5); WHITE BLOOD COUNT 17.7 10^3/ul (4.5-11.0)
--- NOTE | 2016-11-22 10:20 | PN ---
DATE: 11/22/2016 SUBJECTIVE: The patient has no complaints of any chest pain or shortness of breath. No headaches, no dizziness. PHYSICAL EXAMINATION VITAL SIGNS: Temperature 97.1, pulse 62, blood pressure 113/58, respirations is 18. GENERAL: The patient is lying in bed, flat, comfortable. HEENT: No oral lesion. Anicteric sclerae. Moist mucosa. NECK: No JVD, adenopathy, or thyromegaly. CARDIOVASCULAR: S1 and S2, regular. No murmurs, rubs, or gallops. LUNGS: Clear to auscultation bilaterally. No wheeze, rales, or rhonchi. ABDOMEN: Bowel sounds are positive, soft, nontender and nondistended. EXTREMITIES: no cyanosis, clubbing or edema. LABS: White cells 19.7, hemoglobin is 2.0, creatinine is 5.5. ASSESSMENT: 1. Hypoxia improved. 2. Delirium improved. 3. Sepsis. 4. Acute chronic obstructive pulmonary disease. 5. Atrial fibrillation. 6. Dementia of Alzheimer's type. 7. Low grade bladder tumor. 8. Anemia. 9. Hypotension, resolved. PLAN: The patient is currently comfortable, is receiving Ativan for agitation secondary to her dementia. She is on verapamil for atrial fibrillation. She is going to continue doxycycline for antibiotics. She is being followed by Dr. Rhoades. The patient is on Xopenex. She is going to continue with steroids. She is being followed by pulmonary and I appreciate their input. The patient's cultures have been negative Tommie Xavier MD
[2016-11-22] MEDS: Cefepime 1gm in NS 100ml 1 GM/100 ML BAG IVPB SCH (12:00)
[2016-11-22] MEDS: SODIUM BICARBONATE IV SCH (12:01)
[2016-11-22] MEDS: Nystatin 100,000 Units/gm Topical Pow(15 gm) TOP SCH ×2 (12:01→18:35)
[2016-11-22] MEDS: WATER IV SCH (12:01)
[2016-11-22] MEDS: MethylPREDNISolone 40 mg Vial IVP SCH ×2 (12:01→21:37)
[2016-11-22] MEDS: DEXTROSE 10% IV SCH (12:01)
--- NOTE | 2016-11-22 12:27 | PN ---
DATE: 11/22/2016 PULMONARY NOTE SUBJECTIVE: The patient appears much more comfortable this morning. She is awake and alert and conversive. PHYSICAL EXAMINATION: VITAL SIGNS: Temperature 97.1, pulse on the monitor is 74, respirations 18, blood pressure 113/58. Oxygen saturation on Ventimask is 100%. HEENT: Normocephalic, atraumatic. NECK: No JVD. CARDIOVASCULAR: Systolic ejection murmur at the lower left sternal border. No S3 gallop. LUNGS: Decreased breath sounds with crackles at the right base. Less rhonchi. No wheezing. EXTREMITIES: No clubbing, cyanosis, or edema. Calves are nontender to palpation. GASTROINTESTINAL: Abdomen is soft, nontender, nondistended. Bowel sounds are positive. SKIN: No acute rash. NEUROLOGIC: Limited at the present time. IMPRESSION: 1. Right lower lobe pneumonia, rule out aspiration. 2. Acute bronchitis. 3. Advanced chronic obstructive pulmonary disease. 4. Rapid atrial fibrillation. 5. Anemia. PLAN: The patient appears much more comfortable this morning. She is not short of breath at rest. She is awake and alert, conversive this morning. On physical exam, there is significantly less bronchospasm noted. In addition, the alveolar-arterial gradient is also decreased. I will continue with the current nebulizer treatments and decrease the intravenous steroids this morning. I would continue with the antibiotic coverage as per Infectious Disease. The leukocytosis is resolving. Repeat a.m. labs are pending. I will also order a repeat chest x-ray - for tomorrow - for comparison. I will also continue with the aspiration precautions for now. Inputs by Cardiology and Infectious Disease are noted. Clinical status of the patient has certainly improved from yesterday. However, again, the overall status/prognosis of this patient remains very guarded. I will discuss the above with Dr. Xavier. Anastacio Gamez MD [id number]
[2016-11-22] MEDS ORDERED: Potassium Chloride 20 mEq ER Tab PO ONE (14:28)
--- NOTE | 2016-11-22 17:33 | CP.PCM.PN ---
Subjective - Date & Time of Evaluation Date of Evaluation: 11/22/16 Time of Evaluation: 09:20 - Subjective Subjective: Comfortable in bed, not in distress, afebrile. Breathing better. Objective - Vital Signs/Intake and Output Vital Signs (last 24 hours): Temp Pulse Resp BP Pulse Ox 97.1 F L 62 18 113/58 L 100 11/21/16 17:44 11/21/16 18:25 11/21/16 17:44 11/21/16 18:25 11/21/16 06:00 Intake and Output: 11/21/16 11/22/16 18:59 06:59 Intake Total 40 Balance 40 - Medications Medications: Current Medications Acetaminophen (Tylenol 325mg Tab) 650 mg PO Q4H PRN PRN Reason: Pain, moderate (4-7) Last Admin: 11/21/16 19:50 Dose: 650 mg Apixaban (Eliquis) 2.5 mg PO BID TARSHA PRN Reason: Protocol Last Admin: 11/21/16 18:26 Dose: 2.5 mg Atenolol (Tenormin) 25 mg PO DAILY [facility] Last Admin: 11/21/16 10:18 Dose: 25 mg Budesonide (Pulmicort Respules) 0.5 mg IH [id number] TAR[facility] Last Admin: 11/21/16 19:35 Dose: 0.5 mg Furosemide (Lasix) 40 mg PO BID [facility] Last Admin: 11/21/16 18:25 Dose: 40 mg Doxycycline Hyclate 100 mg/ (Sodium Chloride) 100 mls @ 100 mls/hr IVPB Q12 TAR[facility] PRN Reason: Protocol Last Admin: 11/21/16 22:40 Dose: 100 mls/hr Sodium Bicarbonate 100 meq/ (Dextrose) 600 mls @ 75 mls/hr IV .Q8H [facility] Last Admin: 11/21/16 22:40 Dose: 75 mls/hr Cefepime HCl (Maxipime 1gm) 1 gm in 100 mls @ 100 mls/hr IVPB DAILY [facility] PRN Reason: Protocol Last Admin: 11/21/16 10:16 Dose: 100 mls/hr Insulin Human Regular (Humulin R Low) 0 units SC ACHS TARSHA PRN Reason: Protocol Last Admin: 11/21/16 22:00 Dose: Not Given Levalbuterol HCl (Xopenex) 0.63 mg IH [id number] [facility] Last Admin: 11/22/16 01:15 Dose: 0.63 mg Levalbuterol HCl (Xopenex) 0.63 mg IH Q2 PRN PRN Reason: Shortness of Breath Last Admin: 11/20/16 21:06 Dose: 0.63 mg Lorazepam (Ativan) 0.5 mg PO TID TARSHA PRN Reason: Protocol Last Admin: 11/21/16 18:26 Dose: 0.5 mg Methylprednisolone (Solu-Medrol) 30 mg IVP Q12 [facility] Last Admin: 11/21/16 22:43 Dose: 30 mg Nystatin (Nystop Topical Powder) 0 gm TOP BID [facility] Last Admin: 11/21/16 18:25 Dose: 1 applic Quetiapine Fumarate (Seroquel) 50 mg PO TID [facility] PRN Reason: Protocol Last Admin: 11/21/16 18:25 Dose: 50 mg Verapamil HCl (Calan Tab) 80 mg PO TID [facility] Last Admin: 11/21/16 18:25 Dose: 80 mg Zaleplon (Sonata) 5 mg PO HS PRN PRN Reason: Insomnia - Labs Labs: 11/21/16 05:20 11/21/16 05:20 PT 11.6 Seconds (9.9-11.8) 11/18/16 12:15 INR 1.07 (0.93-1.08) 11/18/16 12:15 APTT 29.6 Seconds (23.7-30.8) 11/18/16 12:15 - Constitutional Appears: Non-toxic, No Acute Distress - Head Exam Head Exam: NORMAL INSPECTION - Respiratory Exam Respiratory Exam: Decreased Breath Sounds - Cardiovascular Exam Cardiovascular Exam: +S1, +S2 - GI/Abdominal Exam GI & Abdominal Exam: Soft. absent: Tenderness Assessment and Plan - Assessment and Plan (Free Text) Plan: Assessment systemic inflammatory response syndrome, R/O healthcare-associated pneumonia on the right, in this patient with probable acute bronchitis, slowly improving history of acute diverticulitis and C. diff. colitis history of C.diff. colitis history of E. faecalis bacteremia probably urine as the source HTN dyslipidemia S/P cerebrovascular accident chronic atrial fibrillation COPD CHF Plan continue Cefepime and Doxycycline day 2; blood cx are negative; PCT is only 0.13 ; CT chest is to be done and we will await results reviewed dr. Gamez's evaluation and recommendations will continue to monitor clinically
--- NOTE | 2016-11-22 19:44 | PN ---
SUBJECTIVE: The patient is an 86-year-old female with history of Alzheimer's dementia and multiple medical issues. The patient had episodes of delirium. The patient was admitted to medical site for evaluation of altered mental status. The patient was seen initially yesterday. Today, the patient was followed up. The patient is compliant with the medications, seems not be in any acute distress. The patient was pleasantly confused. The patient does not know where she is, confabulates. The patient does not remember this conventional mortgage underwriter. Based on nursing staff report, the patient does not have any behavioral issues, compliance with medications, has fair appetite and sleep. There was no options to have meaningful conversation with the patient. The patient was confabulating about the breakfast and she had a good breakfast and she was not able to remember what she ate. PHYSICAL EXAMINATION: VITAL SIGNS: Stable. Temperature 97.8, pulse is 106, blood pressure 112/55, respirations 22, oxygen saturation is 97% and 100% on nasal cannula. MEDICATIONS: Reviewed. Tylenol, atenolol, Eliquis, Pulmicort, Maxipime, also Lasix, Humulin, , lorazepam 0.5 mg 3 times a day, schedule Solu-Medrol, Seroquel 50 mg 3 times a day and Sonata 5 mg as needed for insomnia, but the patient did not have any Sonata. LABORATORY DATA: Labs reviewed. Leukocytosis still persistent at 17.7, but at the same time the patient is on steroids. Hemoglobin and hematocrit are 9.1 and 30.7 respectively. Chemistry reviewed, seems to be within normal limits. Procalcitonin level is 0.13. Urinalysis: Blood and leukocyte esterase positive. The patient was seen by . Notes were reviewed. MENTAL STATUS EXAMINATION: As this conventional mortgage underwriter described above, the patient is pleasantly confused. Intermittent eye contact. There is no acute distress. The patient is pleasant. Speech was mumbling. Thought process confabulation and disorganized. Thought content, the patient was not be able to comprehend, hallucinations or delusions. The patient does not have any behavior which this conventional mortgage underwriter would concern about the patient safety. The patient is pleasant and cooperative. Insight and judgment are impaired. The patient has Alzheimer's dementia advanced. Impulses are well predictable right now. IMPRESSION: Delirium is improving. The patient seems to be at her baseline. The patient has multiple medical issues, please see notes for more detailed information. PLAN: Continue current medication. Continue current management. The patient seems to be at her baseline and there are no signs of any acute distress. This conventional mortgage underwriter will sign off. This patient needs to be followed up with [facility]. Should you have any questions give me a callback. Continue Seroquel. Continue Ativan. Thank you very much for letting me participate in the care of your patient. Adriana Davison MD
--- NOTE | 2016-11-22 20:02 | PN ---
DATE: 11/22/2016 CONSULTATION FOLLOWUP REASON FOR CONSULTATION: Paroxysmal atrial fibrillation, now converted to normal sinus, admitted with acute exacerbation of COPD as well as decompensated congestive heart failure. SUBJECTIVE: The patient denies any chest pain, shortness of breath, any palpitation. OBJECTIVE: The patient is lying flat on the bed, not in any apparent distress. PHYSICAL EXAMINATION VITAL SIGNS: Temperature afebrile, heart rate 106, blood pressure 122/55. HEENT: PERRLA. Extraocular movements are intact. NECK: Supple. No carotid bruits or thyromegaly. CHEST Clear to auscultation. HEART: S1 and S2. Regular. ABDOMEN: Soft. EXTREMITIES: Clubbing and cyanosis negative. LABORATORY DATA: Blood workup as follows: WBC 17.7, hemoglobin 9.1, hematocrit 30.7, platelet count 324. Chemistry shows sodium 140, potassium 3.0, chloride 96, carbon dioxide 31, anion gap of 15, BUN 15, creatinine 1.3. EKG shows normal sinus rhythm as of yesterday. IMPRESSION: An 86-year-old female with past medical history significant for paroxysmal atrial fibrillation, on anticoagulation, admitted with acute exacerbation of chronic obstructive pulmonary disease, urinary tract infection, elevated WBC and COPD exacerbation as well as decompensated congestive heart failure. The patient has cardiomyopathy, ejection fraction of 25%. Last stress was negative on 09/18/2014, for ischemia, severe mitral regurgitation, and tricuspid regurgitation. RECOMMENDATION: Continue verapamil. Continue Eliquis. History of paroxysmal atrial fibrillation, yesterday the patient converted to normal sinus. Continue atenolol. Continue treatment for COPD. Continue nebulizer treatment. We will change to Xopenex as DuoNeb nebulizer treatment causes more tachycardia. We will follow with you. We will supplement potassium 3.7. We will give 40 K-Dur and repeat the lab in the morning. We will also check magnesium level in the morning. Thank you for providing me the opportunity in taking care of the patient, Eamon Gonzalez. If she remains stable, we will discontinue telemetry. Amari Lan MD [facility] # [id number]
[2016-11-23] MEDS: Levalbuterol 0.63 MG/3 ML Inhal Soln UD IH SCH ×4 (01:03→20:28)
[2016-11-23] MEDS: Budesonide 0.5 mg/2 ml Inhal Susp UD IH SCH ×2 (07:42→20:28)
[2016-11-23] MEDS: Insulin Reg-LOW-Coverage SC SCH ×3 (08:19→16:32)
--- NOTE | 2016-11-23 08:46 | PN ---
DATE: 11/23/2016 SUBJECTIVE: The patient appears comfortable this morning. She is not short of breath at rest. She is awake and alert. PHYSICAL EXAMINATION VITAL SIGNS: Temperature 98.1, pulse 81, respirations 18/20, blood pressure 109/65. Oxygen saturation on nasal cannula is 94%. HEENT: Normocephalic, atraumatic. NECK: No JVD. CARDIOVASCULAR: Systolic ejection murmur at the lower left sternal border. No S3 gallop. LUNGS: Decreased breath sounds with crackles at the right base. Minimal/less rhonchi. No wheezing. EXTREMITIES: No clubbing, cyanosis, or edema. Calves are nontender to palpation. GASTROINTESTINAL: Abdomen is soft, nontender, nondistended. Bowel sounds are positive. SKIN: No acute rash. NEUROLOGIC: Limited at the present time. IMPRESSION: 1. Right lower lobe pneumonia, rule out aspiration. 2. Acute bronchitis. 3. Advanced chronic obstructive pulmonary disease. 4. Rapid atrial fibrillation. 5. Anemia. PLAN: The patient appears very comfortable this morning. She is not short of breath at rest. She is awake and alert, and states to feeling much better this morning. On physical exam, her bronchospasm continues to slowly resolve. I will continue with the current nebulizer treatments and low-dose intravenous steroids (decreased yesterday) for now. I would also continue the antibiotic coverage as per infectious disease. Input by Dr. Lawton is noted. I did order a repeat chest x-ray for today, and will check that when feasible. Clinical status of the patient has significantly improved-compared to earlier in the week. However, again, the overall status/prognosis for this elderly patient does remain very guarded. I will discuss the above with Dr. Xavier. Anastacio Gamez MD [facility]
[2016-11-23 10:00] LABS: MEAN CORPUSCULAR HEMOGLOBIN 25.1 pg (25.0-35.0); MEAN CORPUSCULAR HGB CONC 28.6 g/dl (31.0-37.0); MEAN PLATELET VOLUME 10.3 fl (7.0-11.0); RBC 3.58 10^6/uL (3.5-6.1); RED CELL DISTRIBUTION WIDTH 22.1 % (11.5-14.5); WHITE BLOOD COUNT 15.2 10^3/ul (4.5-11.0)
[2016-11-23] MEDS: Cefepime 1gm in NS 100ml 1 GM/100 ML BAG IVPB SCH (10:00)
[2016-11-23] MEDS: MethylPREDNISolone 40 mg Vial IVP SCH ×2 (10:07→22:10)
[2016-11-23 10:14] LABS: ALB/GLOB RATIO 1.1 (1.1-1.8); ALBUMIN 3.2 g/dL (3.0-4.8); CALCIUM 8.2 mg/dL (8.4-10.5); MAGNESIUM 1.8 mg/dL (1.7-2.2)
[2016-11-23] MEDS: Nystatin 100,000 Units/gm Topical Pow(15 gm) TOP SCH ×2 (10:17→18:05)
--- NOTE | 2016-11-23 10:45 | RAD ---
HISTORY: follow up COMPARISON: 11/20/2016 TECHNIQUE: Chest PA and lateral FINDINGS: LUNGS: Infiltrate and effusion at right lung base unchanged. Moderate vascular congestion PLEURA: Right-sided effusion CARDIOVASCULAR: Mild cardiomegaly OSSEOUS STRUCTURES: No significant abnormalities. VISUALIZED UPPER ABDOMEN: Normal. OTHER FINDINGS: None. IMPRESSION: Infiltrate and effusion at right lung base unchanged. Moderate vascular congestion
--- NOTE | 2016-11-23 14:55 | PN ---
DATE: SUBJECTIVE: The patient is an 86-year-old female with history of Alzheimer's dementia and multiple medical issues. The patient was admitted on the medical side for change in mental status. The patient was followed up today. The patient presented to be alert, but disoriented, pleasantly confused. There is no aggression or agitation. The patient slept through the night. The patient seems to be psychiatrically stable. We tried to talk to the patient. The patient said that she is feeling fine, pleasant, but there was no option to have meaningful conversation. PHYSICAL EXAMINATION: VITAL SIGNS: Stable, temperature is 98.1, pulse is 110, blood pressure 115/85, respiration is 20, oxygen saturation is 95% to 98%. MEDICATIONS: Reviewed, Tylenol, Eliquis, atenolol, Pulmicort, cefepime, Lasix, Humulin, Zanaflex, lorazepam 0.5 mg three times a day schedule, Solu-Medrol, Seroquel 50 mg three times a day schedule, verapamil and Sonata 5 mg for insomnia, but the patient was not taking this medication. LABORATORY DATA: WBC cells 15.5, hemoglobin and hematocrit 9.0/31.5. Coagulation reviewed. Chemistry reviewed. Urinalysis showed leukocyte esterase positive as well as moderate blood on 11/20/2016. Reports were reviewed. The patient was seen by Infection Disease, patternmaker metal as well as music engraver. MENTAL STATUS EXAMINATION: The patient appears to be alert, pleasantly confused, intermittent eye contact. Speech was minimal, yes/no answers. Thought process disorganized and confabulation. Thought content, the patient was not able to comprehend question about depression, suicidal attempts, psychosis, but overall, the patient presented to be clam. There were no signs of agitation, psychosis or aggression. Insight and judgement impaired. Impulses are well controlled. IMPRESSION: Delirium and dementia. The patient is doing better. Multiple medical issues including systemic inflammatory response syndrome. The patient mostly likely had healthcare-associated pneumonia on the right side, acute bronchitis, the patient is improving, history of acute diverticulitis, history of Clostridium difficile colitis, history of Enterococcus faecalis bacteremia, hypertension, dyslipidemia, status post cerebrovascular accident, chronic atrial fibrillation, chronic obstructive pulmonary disease and congestive heart failure. The patient is DO NOT INTUBATE and DO NOT RESUSCITATE. PLAN: Continue current management. Continue current medications. Although, the patient seems to be psychiatrically stable besides , please continue Seroquel, please continue Ativan. The patient needs to be followed up with psychiatrist in the longterm. This race and sports book writer will sign off. Re-consult as needed. Dr. Paris is covering for next week. Thank you very much for letting me to participate in the care of your patient. Adriana Davison MD
--- NOTE | 2016-11-23 17:38 | CP.PCM.PN ---
Subjective - Date & Time of Evaluation Date of Evaluation: 11/23/16 Time of Evaluation: 09:50 - Subjective Subjective: Comfortable, breathing better, no fevers, not in distress. Objective - Vital Signs/Intake and Output Vital Signs (last 24 hours): Temp Pulse Resp BP Pulse Ox 97.7 F 83 20 97/39 L 100 11/23/16 00:01 11/23/16 06:00 11/23/16 00:01 11/23/16 00:01 11/21/16 06:00 - Medications Medications: Current Medications Acetaminophen (Tylenol 325mg Tab) 650 mg PO Q4H PRN PRN Reason: Pain, moderate (4-7) Last Admin: 11/21/16 19:50 Dose: 650 mg Apixaban (Eliquis) 2.5 mg PO BID TARSHA PRN Reason: Protocol Last Admin: 11/22/16 18:36 Dose: 2.5 mg Atenolol (Tenormin) 25 mg PO DAILY [facility] Last Admin: 11/22/16 12:04 Dose: 25 mg Budesonide (Pulmicort Respules) 0.5 mg IH [id number] [facility] Last Admin: 11/22/16 20:03 Dose: 0.5 mg Furosemide (Lasix) 40 mg PO BID [facility] Last Admin: 11/22/16 18:36 Dose: 40 mg Doxycycline Hyclate 100 mg/ (Sodium Chloride) 100 mls @ 100 mls/hr IVPB Q12 TARSHA PRN Reason: Protocol Last Admin: 11/22/16 21:37 Dose: 100 mls/hr Cefepime HCl (Maxipime 1gm) 1 gm in 100 mls @ 100 mls/hr IVPB DAILY TARSHA PRN Reason: Protocol Last Admin: 11/22/16 12:00 Dose: 100 mls/hr Insulin Human Regular (Humulin R Low) 0 units SC ACHS TARSHA PRN Reason: Protocol Last Admin: 11/22/16 23:40 Dose: 1 units Levalbuterol HCl (Xopenex) 0.63 mg IH [id number] [facility] Last Admin: 11/23/16 01:03 Dose: 0.63 mg Levalbuterol HCl (Xopenex) 0.63 mg IH Q2 PRN PRN Reason: Shortness of Breath Last Admin: 11/20/16 21:06 Dose: 0.63 mg Lorazepam (Ativan) 0.5 mg PO TID [facility] PRN Reason: Protocol Last Admin: 11/22/16 18:36 Dose: 0.5 mg Methylprednisolone (Solu-Medrol) 20 mg IVP Q12 [facility] Last Admin: 11/22/16 21:37 Dose: 20 mg Nystatin (Nystop Topical Powder) 0 gm TOP BID [facility] Last Admin: 11/22/16 18:35 Dose: 1 applic Quetiapine Fumarate (Seroquel) 50 mg PO TID TARSHA PRN Reason: Protocol Last Admin: 11/22/16 20:49 Dose: 50 mg Verapamil HCl (Calan Tab) 80 mg PO TID [facility] Last Admin: 11/22/16 15:45 Dose: 80 mg Zaleplon (Sonata) 5 mg PO HS PRN PRN Reason: Insomnia - Labs Labs: 11/22/16 10:00 11/22/16 04:45 PT 11.6 Seconds (9.9-11.8) 11/18/16 12:15 INR 1.07 (0.93-1.08) 11/18/16 12:15 APTT 29.6 Seconds (23.7-30.8) 11/18/16 12:15 - Constitutional Appears: Non-toxic, No Acute Distress - Head Exam Head Exam: NORMAL INSPECTION - ENT Exam ENT Exam: Mucous Membranes Moist - Neck Exam Neck Exam: absent: Lymphadenopathy, Meningismus - Respiratory Exam Respiratory Exam: Decreased Breath Sounds - Cardiovascular Exam Cardiovascular Exam: +S1, +S2 - GI/Abdominal Exam GI & Abdominal Exam: Soft. absent: Tenderness Assessment and Plan - Assessment and Plan (Free Text) Plan: Assessment systemic inflammatory response syndrome, R/O healthcare-associated pneumonia on the right, in this patient with probable acute bronchitis, slowly improving history of acute diverticulitis and C. diff. colitis history of C.diff. colitis history of E. faecalis bacteremia probably urine as the source HTN dyslipidemia S/P cerebrovascular accident chronic atrial fibrillation COPD CHF Plan continue Cefepime and Doxycycline day 3; blood cx are negative; PCT is only 0.13 ; CT chest is to be done and we will await results reviewed dr. Gamez's evaluation and recommendations will continue to monitor clinically
--- NOTE | 2016-11-23 21:16 | PN ---
REASON FOR CONSULTATION: Paroxysmal atrial fibrillation now converted to normal sinus, COPD exacerbation, CHF, acute on chronic systolic dysfunction. SUBJECTIVE: The patient is lying flat, not in distress. OBJECTIVE: Lying flat on the bed, not in apparent distress. PHYSICAL EXAMINATION VITAL SIGNS: Temperature afebrile, heart rate 95, blood pressure 113/53. HEENT: PERRLA. Extraocular movements intact. NECK: Supple. No carotid bruits or thyromegaly. CHEST Clear to auscultation. HEART: S1 and S2, regular. ABDOMEN: Soft. EXTREMITIES: Clubbing and cyanosis negative. Telemetry, normal sinus. LABORATORY DATA: Blood workup as follows: WBC 15.2, hemoglobin 9, hematocrit 31.5, platelet count 249. Chemistry shows sodium 140, potassium 4.6, chloride 96, carbon dioxide 29, anion gap of 29, creatinine 1.1, BUN 54. IMPRESSION: Paroxysmal atrial fibrillation, chronic obstructive pulmonary disease exacerbation, acute congestive heart failure, acute coronary syndrome with systolic dysfunction, ejection fraction 25% by echo dated 09/18/2014. Stress test on 09/18/2014 negative for ischemia, severe mitral and tricuspid regurgitation. RECOMMENDATIONS: Continue verapamil, continue Eliquis for history of paroxysmal atrial fibrillation, now the patient in normal sinus can go back into MR. Continue gentle diuretics, keep fluid negative balance, continue verapamil p.o. t.i.d. We will follow with you. Thank you Dr. Xavier for providing the opportunity in taking care of the patient. We will discontinue telemetry. Amari Lan MD
[2016-11-24] MEDS: Levalbuterol 0.63 MG/3 ML Inhal Soln UD IH SCH ×4 (02:00→19:13)
--- NOTE | 2016-11-24 04:57 | DS ---
DATE OF DISCHARGE: 11/23/2016 HISTORY OF PRESENT ILLNESS: The patient is an 86-year-old female who had come to the hospital because of hypoxia. The patient during the hospitalization became septic, white count is elevated. She was given nebulizer treatments, given IV antibiotics, she had improved in her symptoms. She does have dementia with underlying agitation. She is feeling better. She has no complaints of any headaches or dizziness. No nausea or vomiting. PHYSICAL EXAMINATION: VITAL SIGNS: Temperature is 97.7, pulse is 76, blood pressure is 97/39, and respirations are 20. GENERAL: The patient is lying in bed, flat, comfortable. HEENT: No oral lesion. Anicteric sclerae. Moist mucosa. NECK: No JVD, adenopathy, or thyromegaly. CARDIOVASCULAR: S1 and S2, regular. No murmurs, rubs, or gallops. LUNGS: Clear to auscultation bilaterally. No wheeze, rales, or rhonchi. ABDOMEN: Bowel sounds are positive, soft, nontender and nondistended. EXTREMITIES: No cyanosis, clubbing or edema. ASSESSMENT: 1. Sepsis. 2. Hypoxia, improved. 3. Delirium, improved. 4. Chronic obstructive pulmonary disease, improved. 5. Atrial fibrillation. 6. Dementia of Alzheimer's type. 7. Low-grade bladder tumor. 8. Anemia. 9. Hypotension, improved. PLAN: The patient has a chest x-ray that has been ordered. She is on cefepime for antibiotics. She is on Lasix daily. She is on atenolol. She is going to continue with Xopenex. She is on Eliquis for her anticoagulation. She is on verapamil for her atrial fibrillation. She has blood cultures that have been negative. Her morning labs are pending. If her white count improves, we will discharge her home, follow her up . Condition is stable. Activity; increase as tolerated. Tommie Xavier MD
[2016-11-24] MEDS: Budesonide 0.5 mg/2 ml Inhal Susp UD IH SCH ×2 (07:18→19:13)
[2016-11-24 07:28] LABS: HEMOGLOBIN 9.5 g/dL (12.0-16.0); MEAN CELL VOLUME 86.4 fl (80.0-105.0); MEAN CORPUSCULAR HEMOGLOBIN 25.4 pg (25.0-35.0); MEAN CORPUSCULAR HGB CONC 29.4 g/dl (31.0-37.0); MEAN PLATELET VOLUME 10.7 fl (7.0-11.0); RBC 3.74 10^6/uL (3.5-6.1); WHITE BLOOD COUNT 15.2 10^3/ul (4.5-11.0)
[2016-11-24 07:32] LABS: ALB/GLOB RATIO 1.4 (1.1-1.8); ALBUMIN 3.4 g/dL (3.0-4.8); CALCIUM 8.5 mg/dL (8.4-10.5)
[2016-11-24] MEDS: Insulin Reg-LOW-Coverage SC SCH ×3 (10:07→17:21)
[2016-11-24] MEDS: Cefepime 1gm in NS 100ml 1 GM/100 ML BAG IVPB SCH (10:17)
[2016-11-24] MEDS: Nystatin 100,000 Units/gm Topical Pow(15 gm) TOP SCH ×2 (10:18→17:32)
[2016-11-24] MEDS: MethylPREDNISolone 40 mg Vial IVP SCH ×2 (10:22→21:44)
[2016-11-24] MEDS: Levalbuterol 0.63 MG/3 ML Inhal Soln UD IH PRN ×2 (11:01→20:43)
--- NOTE | 2016-11-24 13:44 | PN ---
DATE: 11/24/2016 CHIEF COMPLAINT AND HISTORY OF PRESENT ILLNESS: The patient has no complaints of any chest pain or shortness of breath, or headaches. PHYSICAL EXAMINATION VITAL SIGNS: Temperature is 97.5, pulse of 99, blood pressure of 120/77, and respirations of 18. GENERAL: The patient is lying in bed, flat, comfortable. HEENT: No oral lesion. Anicteric sclerae. Moist mucosa. NECK: No JVD, adenopathy, or thyromegaly. CARDIOVASCULAR: S1 and S2, regular. No murmurs, rubs, or gallops. LUNGS: Clear to auscultation bilaterally. No wheeze, rales, or rhonchi. ABDOMEN: Bowel sounds are positive, soft, nontender and nondistended. EXTREMITIES: no cyanosis, clubbing or edema. IMAGING STUDIES: Chest x-ray shows infiltrate and effusion in the right lung base, unchanged, moderate vascular congestion. ASSESSMENT: 1. Sepsis. 2. Right pleural effusion. 3. Delirium, improved. 4. Hypoxia, improved. 5. Dementia of Alzheimer's type. 7. Low-grade bladder tumor. 8. Anemia. 9. Hypotension, resolved. PLAN: The patient did have episodes of low blood pressure yesterday, blood pressure is better today. She is receiving doxycycline for antibiotics, she is on verapamil, she is on cefepime for antibiotics as well. She is being followed by infectious disease. The patient is on steroids. The patient is on atenolol. She is going to be on Xopenex for her breathing and she is on nystatin powder. Her white count remains elevated. Tommie Xavier MD
--- NOTE | 2016-11-24 15:17 | PN ---
PULMONARY PROGRESS NOTE DATE: 11/24/2016 SUBJECTIVE: The patient is markedly improved. She is sitting up in bed, talking full sentences, has no respiratory complaints. She is happy about being discharged in the a.m. She is anxious to get back to the shelter. PHYSICAL EXAMINATION: VITAL SIGNS: Stable. She is afebrile with a pulse of 81, respiratory rate of 16, blood pressure 110/70, and oxygen saturation on nasal cannula 97%. HEENT: Normocephalic, atraumatic. NECK: Supple. No JVD. No lymphadenopathy. No bruits. No lymphadenopathy. CARDIOVASCULAR: Regular rhythm, S1 and S2. Soft systolic ejection murmur to the lower left sternal border. PULMONARY: Global decrease in breath sounds with no significant abnormal findings. No adventitious sounds. Lungs are essentially clear, but with distant breath sounds. ABDOMEN: Soft. Bowel sounds are normal. No mass, guarding or rebound. EXTREMITIES: Reveal no clubbing, cyanosis or edema. No Homans' sign. SKIN: Warm. There is no rashes excoriation. NEUROLOGIC: Normal. Mental status is wonderful. There are no focal deficits noted. LYMPHADENOPATHY: No abnormalities noted. There are no nodes palpated in the supraclavicular notch, axillary cervical, or inguinal areas. CLINICAL IMPRESSION: 1. Status post right lower lobe pneumonia. 2. Status post bronchitis. 3. Chronic obstructive pulmonary disease. 4. Atrial fibrillation. 5. Anemia. PLAN: According the patient's RN, the patient is being discharged tomorrow to the shelter. She should continue on completion of dose of antibiotics. I STRONGLY suggest a followup chest x-ray in one to two weeks to confirm complete resolution of the infiltrate described previously. She should continue on her COPD medications, bronchodilators, etc. Her PMD will see her in the shelter. If this is not the case, she is more than welcome to come to our office to see myself or Dr. Gamez who has her during this hospitalization, but she must have followup regarding the x-ray to show complete clearing of the infiltrate. At that time, she will need to be reevaluated for changes in her pulmonary medications once she is in her normal environment. Thank you for the opportunity to see Lisa. We look forward to seeing her as an outpatient. Maurice Lind MD [facility] # [id number] NA[facility]
--- NOTE | 2016-11-24 17:53 | CP.PCM.PN ---
Subjective - Date & Time of Evaluation Date of Evaluation: 11/24/16 Time of Evaluation: 11:35 - Subjective Subjective: Comfortable, eating well, no fevers overnight, still with cough and occasional SOB. Objective - Vital Signs/Intake and Output Vital Signs (last 24 hours): Temp Pulse Resp BP Pulse Ox 97.5 F L 99 H 18 120/77 95 11/24/16 07:50 11/24/16 10:26 11/24/16 07:50 11/24/16 10:26 11/24/16 07:50 Intake and Output: 11/24/16 11/24/16 06:59 18:59 Intake Total 1060 Balance 1060 - Medications Medications: Current Medications Acetaminophen (Tylenol 325mg Tab) 650 mg PO Q4H PRN PRN Reason: Pain, moderate (4-7) Last Admin: 11/21/16 19:50 Dose: 650 mg Apixaban (Eliquis) 2.5 mg PO BID [facility] PRN Reason: Protocol Last Admin: 11/24/16 10:07 Dose: 2.5 mg Atenolol (Tenormin) 25 mg PO DAILY [facility] Last Admin: 11/24/16 10:26 Dose: 25 mg Budesonide (Pulmicort Respules) 0.5 mg IH [id number] [facility]AR[facility] Last Admin: 11/24/16 07:18 Dose: 0.5 mg Furosemide (Lasix) 40 mg PO BID [facility] Last Admin: 11/24/16 10:14 Dose: 40 mg Doxycycline Hyclate 100 mg/ (Sodium Chloride) 100 mls @ 100 mls/hr IVPB Q12 [facility] PRN Reason: Protocol Last Admin: 11/24/16 10:23 Dose: 100 mls/hr Cefepime HCl (Maxipime 1gm) 1 gm in 100 mls @ 100 mls/hr IVPB DAILY [facility] PRN Reason: Protocol Last Admin: 11/24/16 10:17 Dose: 100 mls/hr Insulin Human Regular (Humulin R Low) 0 units SC ACHS [facility] PRN Reason: Protocol Last Admin: 11/24/16 10:07 Dose: 149 units Levalbuterol HCl (Xopenex) 0.63 mg IH [id number] [facility] Last Admin: 11/24/16 07:18 Dose: 0.63 mg Levalbuterol HCl (Xopenex) 0.63 mg IH Q2 PRN PRN Reason: Shortness of Breath Last Admin: 11/20/16 21:06 Dose: 0.63 mg Lorazepam (Ativan) 0.5 mg PO TID [facility] PRN Reason: Protocol Last Admin: 11/24/16 10:05 Dose: 0.5 mg Methylprednisolone (Solu-Medrol) 20 mg IVP Q12 [facility] Last Admin: 11/24/16 10:22 Dose: 20 mg Nystatin (Nystop Topical Powder) 0 gm TOP BID [facility] Last Admin: 11/24/16 10:18 Dose: 1 applic Quetiapine Fumarate (Seroquel) 50 mg PO TID [facility] PRN Reason: Protocol Last Admin: 11/24/16 10:18 Dose: 50 mg Verapamil HCl (Calan Tab) 80 mg PO TID [facility] Last Admin: 11/24/16 10:06 Dose: 80 mg Zaleplon (Sonata) 5 mg PO HS PRN PRN Reason: Insomnia Last Admin: 11/23/16 22:31 Dose: 5 mg - Labs Labs: 11/24/16 06:45 11/24/16 06:45 PT 11.6 Seconds (9.9-11.8) 11/18/16 12:15 INR 1.07 (0.93-1.08) 11/18/16 12:15 APTT 29.6 Seconds (23.7-30.8) 11/18/16 12:15 - Constitutional Appears: Non-toxic, No Acute Distress - Head Exam Head Exam: NORMAL INSPECTION - ENT Exam ENT Exam: Mucous Membranes Moist - Neck Exam Neck Exam: absent: Lymphadenopathy, Meningismus - Respiratory Exam Respiratory Exam: Decreased Breath Sounds - Cardiovascular Exam Cardiovascular Exam: +S1, +S2 - GI/Abdominal Exam GI & Abdominal Exam: Soft. absent: Tenderness Assessment and Plan - Assessment and Plan (Free Text) Plan: Assessment systemic inflammatory response syndrome, consider healthcare-associated pneumonia on the right, in this patient with probable acute bronchitis, slowly improving history of acute diverticulitis and C. diff. colitis history of C.diff. colitis history of E. faecalis bacteremia probably urine as the source HTN dyslipidemia S/P cerebrovascular accident chronic atrial fibrillation COPD CHF Plan continue Cefepime and Doxycycline day 4; blood cx are negative; PCT is only 0.13 ; target 4-7 days of antibiotics reviewed dr. Gamez's evaluation and recommendations will continue to monitor clinically
[2016-11-25] MEDS: Levalbuterol 0.63 MG/3 ML Inhal Soln UD IH SCH ×4 (01:00→20:40)
[2016-11-25] MEDS: Insulin Reg-LOW-Coverage SC SCH ×4 (05:32→16:56)
[2016-11-25] MEDS: Budesonide 0.5 mg/2 ml Inhal Susp UD IH SCH ×2 (07:20→20:40)
[2016-11-25] MEDS: MethylPREDNISolone 40 mg Vial IVP SCH ×2 (09:22→21:22)
[2016-11-25] MEDS: Nystatin 100,000 Units/gm Topical Pow(15 gm) TOP SCH ×2 (09:24→18:14)
[2016-11-25] MEDS: Cefepime 1gm in NS 100ml 1 GM/100 ML BAG IVPB SCH (09:31)
[2016-11-25 10:23] LABS: HEMOGLOBIN 8.7 g/dL (12.0-16.0); MEAN CELL VOLUME 84.9 fl (80.0-105.0); MEAN CORPUSCULAR HEMOGLOBIN 25.3 pg (25.0-35.0); MEAN CORPUSCULAR HGB CONC 29.8 g/dl (31.0-37.0); MEAN PLATELET VOLUME 10.4 fl (7.0-11.0); RBC 3.44 10^6/uL (3.5-6.1); RED CELL DISTRIBUTION WIDTH 21.9 % (11.5-14.5)
[2016-11-25 10:33] LABS: ALB/GLOB RATIO 1.5 (1.1-1.8); ALBUMIN 3.4 g/dL (3.0-4.8); CALCIUM 8.6 mg/dL (8.4-10.5)
--- NOTE | 2016-11-25 18:17 | CP.PCM.PN ---
Subjective - Date & Time of Evaluation Date of Evaluation: 11/25/16 Time of Evaluation: 11:50 - Subjective Subjective: Comfortable, breathing better, eating well. No fevers overnight. Objective - Vital Signs/Intake and Output Vital Signs (last 24 hours): Temp Pulse Resp BP Pulse Ox 98.4 F 110 H 22 135/84 97 11/25/16 07:00 11/25/16 07:00 11/25/16 07:00 11/25/16 09:23 11/25/16 07:00 Intake and Output: 11/25/16 11/25/16 06:59 18:59 Intake Total 740 Output Total 1 Balance 739 - Medications Medications: Current Medications Acetaminophen (Tylenol 325mg Tab) 650 mg PO Q4H PRN PRN Reason: Pain, moderate (4-7) Last Admin: 11/21/16 19:50 Dose: 650 mg Apixaban (Eliquis) 2.5 mg PO BID [facility] PRN Reason: Protocol Last Admin: 11/25/16 09:19 Dose: 2.5 mg Atenolol (Tenormin) 25 mg PO DAILY [facility] Last Admin: 11/25/16 09:23 Dose: 25 mg Budesonide (Pulmicort Respules) 0.5 mg IH [id number] [facility] Last Admin: 11/25/16 07:20 Dose: 0.5 mg Furosemide (Lasix) 40 mg PO BID [facility] Last Admin: 11/25/16 09:20 Dose: 40 mg Doxycycline Hyclate 100 mg/ (Sodium Chloride) 100 mls @ 100 mls/hr IVPB Q12 [facility] PRN Reason: Protocol Last Admin: 11/25/16 09:22 Dose: 100 mls/hr Cefepime HCl (Maxipime 1gm) 1 gm in 100 mls @ 100 mls/hr IVPB DAILY [facility] PRN Reason: Protocol Last Admin: 11/25/16 09:31 Dose: 100 mls/hr Insulin Human Regular (Humulin R Low) 0 units SC ACHS [facility] PRN Reason: Protocol Last Admin: 11/25/16 08:32 Dose: Not Given Levalbuterol HCl (Xopenex) 0.63 mg IH [id number] [facility] Last Admin: 11/25/16 07:20 Dose: 0.63 mg Levalbuterol HCl (Xopenex) 0.63 mg IH Q2 PRN PRN Reason: Shortness of Breath Last Admin: 11/24/16 20:43 Dose: 0.63 mg Lorazepam (Ativan) 0.5 mg PO TID [facility] PRN Reason: Protocol Last Admin: 11/25/16 09:19 Dose: 0.5 mg Methylprednisolone (Solu-Medrol) 20 mg IVP Q12 [facility] Last Admin: 11/25/16 09:22 Dose: 20 mg Nystatin (Nystop Topical Powder) 0 gm TOP BID [facility] Last Admin: 11/25/16 09:24 Dose: 1 applic Quetiapine Fumarate (Seroquel) 50 mg PO TID [facility] PRN Reason: Protocol Last Admin: 11/25/16 09:22 Dose: 50 mg Verapamil HCl (Calan Tab) 80 mg PO TID [facility] Last Admin: 11/25/16 09:19 Dose: 80 mg Zaleplon (Sonata) 5 mg PO HS PRN PRN Reason: Insomnia Last Admin: 11/23/16 22:31 Dose: 5 mg - Labs Labs: 11/24/16 06:45 11/24/16 06:45 PT 11.6 Seconds (9.9-11.8) 11/18/16 12:15 INR 1.07 (0.93-1.08) 11/18/16 12:15 APTT 29.6 Seconds (23.7-30.8) 11/18/16 12:15 - Constitutional Appears: Non-toxic, No Acute Distress - Head Exam Head Exam: NORMAL INSPECTION - Neck Exam Neck Exam: absent: Lymphadenopathy, Meningismus - Respiratory Exam Respiratory Exam: Decreased Breath Sounds - Cardiovascular Exam Cardiovascular Exam: +S1, +S2 - GI/Abdominal Exam GI & Abdominal Exam: Soft. absent: Tenderness Assessment and Plan - Assessment and Plan (Free Text) Plan: Assessment systemic inflammatory response syndrome, consider healthcare-associated pneumonia on the right, in this patient with probable acute bronchitis, slowly improving history of acute diverticulitis and C. diff. colitis history of C.diff. colitis history of E. faecalis bacteremia probably urine as the source HTN dyslipidemia S/P cerebrovascular accident chronic atrial fibrillation COPD CHF Plan continue Cefepime and Doxycycline day 5; blood cx are negative; PCT is only 0.13 ; target 4-7 days of antibiotics will continue to monitor clinically
--- NOTE | 2016-11-26 01:10 | PN ---
DATE: 11/25/2016 SUBJECTIVE: The patient has no complaints of any chest pain. No shortness of breath, no headaches, no dizziness. PHYSICAL EXAMINATION VITAL SIGNS: Temperature is 97.7, pulse is 76, blood pressure is 116/60, respirations 20. GENERAL: The patient is comfortable, in no acute distress. HEENT: Anicteric sclerae. Moist mucosa. NECK: No JVD or adenopathy. CARDIAC: S1, S2. No murmurs. No rubs. Regular. RESPIRATORY: Clear to auscultation bilaterally. No wheezes, rales, or rhonchi. Good air entry. ABDOMEN: Bowel sounds are positive, soft, nontender, and nondistended. EXTREMITIES: No edema. Has 1+ pulses. ASSESSMENT: 1. Sepsis. 2. Right pleural effusion. 3. Delirium, improved. 4. Hypoxia, improved. 5. 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 7. Anemia. 8. Hypotension, resolved. The patient is on Ativan, she is going to continue. She is on verapamil for her atrial fibrillation. The patient os on antibiotics. She is going to be continued on Lasix twice a day for her pleural effusion. She is also receiving cefepime. Her white count remained elevated. I will repeat her blood work tomorrow. DNR/DNI. Tommie Xavier MD MTDD
[2016-11-26] MEDS: Levalbuterol 0.63 MG/3 ML Inhal Soln UD IH SCH ×4 (02:20→20:46)
[2016-11-26 07:14] LABS: HEMOGLOBIN 8.4 g/dL (12.0-16.0); MEAN CELL VOLUME 84.7 fl (80.0-105.0); MEAN CORPUSCULAR HEMOGLOBIN 24.8 pg (25.0-35.0); MEAN CORPUSCULAR HGB CONC 29.3 g/dl (31.0-37.0); MEAN PLATELET VOLUME 10.4 fl (7.0-11.0); RBC 3.39 10^6/uL (3.5-6.1); RED CELL DISTRIBUTION WIDTH 22.1 % (11.5-14.5); WHITE BLOOD COUNT 16.5 10^3/ul (4.5-11.0)
[2016-11-26] MEDS: Budesonide 0.5 mg/2 ml Inhal Susp UD IH SCH ×2 (07:15→20:46)
[2016-11-26 07:34] LABS: ALB/GLOB RATIO 1.4 (1.1-1.8); ALBUMIN 3.1 g/dL (3.0-4.8); CALCIUM 8.4 mg/dL (8.4-10.5)
[2016-11-26] MEDS: Nystatin 100,000 Units/gm Topical Pow(15 gm) TOP SCH ×2 (09:42→17:39)
[2016-11-26] MEDS: Insulin Reg-LOW-Coverage SC SCH ×4 (09:42→22:00)
[2016-11-26] MEDS: Cefepime 1gm in NS 100ml 1 GM/100 ML BAG IVPB SCH (09:44)
[2016-11-26] MEDS: MethylPREDNISolone 40 mg Vial IVP SCH ×2 (09:45→23:42)
--- NOTE | 2016-11-26 10:13 | PN ---
DATE: 11/26/2016 SUBJECTIVE: The patient has no complaints of chest pain, no shortness of breath, no headaches. PHYSICAL EXAMINATION VITAL SIGNS: Temperature is 98.9, pulse of 83, blood pressure of 123/73, and respirations of 22. GENERAL: The patient is lying in bed, flat, comfortable. HEENT: No oral lesion. Anicteric sclerae. Moist mucosa. NECK: No JVD, adenopathy, or thyromegaly. CARDIOVASCULAR: S1 and S2, regular. No murmurs, rubs, or gallops. LUNGS: Clear to auscultation bilaterally. No wheeze, rales, or rhonchi. ABDOMEN: Bowel sounds are positive, soft, nontender and nondistended. EXTREMITIES: no cyanosis, clubbing or edema. LABS: White cells 16.5, hemoglobin is 8.4, creatinine is 1.2. ASSESSMENT: 1. Sepsis. 2. Right pleural effusion. 3. Delirium, improved. 4. Hypoxia, improved. 5. 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 7. Anemia. 8. Hypotension, resolved. 9. Do not resuscitate/do not intubate. PLAN: The patient is on verapamil. The patient is going to be seen by Dr. Lind who I spoke with, consented the patient has an elevated white count. She may need a pleural tap. I will get that done as well. Tommie Xavier MD
[2016-11-26 14:42] LABS: BODY FLUID TYPE PLEURAL
--- NOTE | 2016-11-26 15:08 | PN ---
DATE: 11/26/2016 SUBJECTIVE: The patient is feeling better and it was thought that she was going to be discharged. In the last several days, discharge was held and the patient was found to have persistent right pleural effusion with elevated WBC count. I have had a long discussion with Dr. Xavier regarding this case. Although the patient remained relatively unchanged physically, he is still concerned about the enlarging effusion and stable elevated white blood cell count. We have decided together that the optimal way of dealing with this is to do a diagnostic and therapeutic thoracentesis prior to her discharge, this will help alleviate accumulation of fluid and hopefully diagnose the leukocytosis. PHYSICAL EXAMINATION VITAL SIGNS: Stable. The patient is afebrile. Blood pressure 110/70 and O2 sat 97%. HEENT: Normocephalic and atraumatic. NECK: Supple. No JVD. No lymphadenopathy. Decreased bruit. CARDIOPULMONARY: Regular rhythm, S1 and S2. Soft systolic ejection murmur to the lower left sternal border. PULMONARY: Global decrease in breath sounds, decrease breath sounds of both bases right much greater than left consistent with fluid accumulation. No rales or rhonchi. Occasional wheezes heard which is resolved with cough. ABDOMEN: Soft. Bowel sounds are normoactive without mass, guarding, rebound. No organomegaly. EXTREMITIES: Reveal no clubbing, cyanosis, or edema. There is no Rhiannon sign. SKIN: Warm and dry with no rash or excoriation. NEUROLOGIC: No focal findings. Mental status still remains good. LYMPHADENOPATHY: Not present. CLINICAL IMPRESSION: 1. Status post right lower lobe pneumonia. 2. Large right pleural effusion. 3. Chronic obstructive pulmonary disease. 4. Atrial fibrillation. PLAN: As discussed above. We have discussed this problem with Dr. Xavier. We will ask Dr. Leonel Trinh to do a diagnostic and therapeutic thoracentesis. I have discussed this approach with the patient and she agrees. She does not want to go back the long-term and come back later. If she should further deteriorate, she is concerned about having signs of inflammation without an etiology, this may be in fact post pneumonic, but there may be underlying problems beneath the remaining fluid. We will do this tap and find out what actually is the cause and we will follow closely. Maurice Lind MD [facility] # [id number] NAIN
[2016-11-26 15:15] LABS: BF GROSS APPEARANCE CLEAR (CLEAR)
[2016-11-26 15:16] LABS: BODY FLUID MONO/MACROPHAGE 0 % (0-0); BODY FLUID TOTAL COUNT 100 (0-0)
[2016-11-26 16:40] VITALS: RESP 20
--- NOTE | 2016-11-26 18:37 | US ---
PROCEDURE: Ultrasound guided right thoracentesis. CLINICAL HISTORY: COPD. Pneumonia. Right pleural effusion. Evaluate for empyema. PHYSICIAN(S): Leonel Trinh MD. TECHNIQUE: The relative risks and indications of the procedure were explained to the patient and consent obtained. The patient was placed in a sitting position on the stretcher and sonography of the right chest performed. This revealed a small to moderate rightpleural effusion. A right posterolateral intercostal approach was selected and the area prepped and draped usual sterile fashion. 1% Xylocaine was used to anesthetize the skin and soft tissues. A 7 [place] thoracentesis catheter was trocared into the right pleural cavity and 350ccof clear straw-colored fluid aspirated. Specimens were sent to the lab. IMPRESSION: 1. Ultrasound guided right thoracentesis. 350 cc of clear, straw-colored fluid were aspirated. The appropriate labs were sent.
--- NOTE | 2016-11-27 00:03 | PN ---
DATE: 11/26/2016 LOCATION: The patient is in room 560, bed 1. REASON FOR CONSULTATION AND FOLLOWUP: Paroxysmal atrial fibrillation, now converted to sinus rhythm, COPD with exacerbation, CHF, acute on chronic LV systolic dysfunction. SUBJECTIVE: Patient lying comfortably without any chest pain, shortness of breath, or palpitation. PHYSICAL EXAMINATION: VITAL SIGNS: Blood pressure 121/59, respirations 20, pulse 63, temperature 98. HEENT: Head is normocephalic. Eyes, pupils normal. Conjunctivae slightly pale. NECK: JVP low. Carotids equal. Thorax: AP diameter normal. LUNGS: Clear. CARDIOVASCULAR: S1 and S2. ABDOMEN: Soft and nontender. No organomegaly. EXTREMITIES: No clubbing. No cyanosis. LABORATORY DATA: WBC 16.5, hemoglobin 8.4, hematocrit 28.7, and platelet 310. Sodium 138, potassium 4.5, BUN 70, creatinine 1.2, random sugar 127. AST 51, ALT 87. Total protein 5.3 and albumin 3.1. DIAGNOSES: Paroxysmal atrial fibrillation, now converted to sinus rhythm, exacerbation of chronic obstructive pulmonary disease, acute congestive heart failure, acute coronary artery syndrome with left ventricular systolic dysfunction, ejection fraction 25% by echocardiogram dated 09/18/2014. Stress test on 09/18/2014 was negative for ischemia. Severe mitral and tricuspid regurgitation. PLAN: To continue verapamil 80 mg t.i.d., Eliquis 2.5 mg b.i.d., furosemide 40 mg b.i.d., Solu-Medrol 20 mg IV q. 12 hours, Sonata 5 mg p.o. at bedtime p.r.n., atenolol 25 mg daily, and Xopenex hand nebulizer therapy. Patient had thoracentesis today for the right-sided pleural effusion. We will continue present therapy and we will follow with you. Amari Johnson MD
[2016-11-27] MEDS: Levalbuterol 0.63 MG/3 ML Inhal Soln UD IH SCH ×3 (02:00→13:59)
[2016-11-27] MEDS: Budesonide 0.5 mg/2 ml Inhal Susp UD IH SCH (07:02)
[2016-11-27 08:03] VITALS: TEMP 97.8; O2SAT 100
[2016-11-27] MEDS: Insulin Reg-LOW-Coverage SC SCH ×2 (08:09→11:26)
[2016-11-27] MEDS: MethylPREDNISolone 40 mg Vial IVP SCH (09:53)
[2016-11-27] MEDS: Cefepime 1gm in NS 100ml 1 GM/100 ML BAG IVPB SCH (09:56)
--- NOTE | 2016-11-27 09:56 | RAD ---
HISTORY: rt thoracentesis COMPARISON: 11/23/2016 TECHNIQUE: Chest PA and lateral FINDINGS: LUNGS: No active pulmonary disease. PLEURA: Decreased right-sided effusion. No pneumothorax CARDIOVASCULAR: Normal. OSSEOUS STRUCTURES: No significant abnormalities. VISUALIZED UPPER ABDOMEN: Normal. OTHER FINDINGS: None. IMPRESSION: Decreased right-sided pleural effusion. No pneumothorax
[2016-11-27] MEDS ORDERED: Cefepime 1gm in NS 100ml 1 GM/100 ML BAG IVPB SCH ×2 (10:00→14:00)
[2016-11-27] MEDS: Nystatin 100,000 Units/gm Topical Pow(15 gm) TOP SCH (10:00)
[2016-11-27 10:01] VITALS: BP 115/63
[2016-11-27] MEDS: Levalbuterol 0.63 MG/3 ML Inhal Soln UD IH PRN (11:17)
[2016-11-27 11:27] LABS: HEMOGLOBIN 8.4 g/dL (12.0-16.0); MEAN CELL VOLUME 84.7 fl (80.0-105.0); MEAN CORPUSCULAR HEMOGLOBIN 25.1 pg (25.0-35.0); MEAN CORPUSCULAR HGB CONC 29.7 g/dl (31.0-37.0); MEAN PLATELET VOLUME 10.3 fl (7.0-11.0); RBC 3.34 10^6/uL (3.5-6.1); RED CELL DISTRIBUTION WIDTH 22.1 % (11.5-14.5); WHITE BLOOD COUNT 11.3 10^3/ul (4.5-11.0)
--- NOTE | 2016-11-27 11:55 | PN ---
DATE: 11/27/2016 SUBJECTIVE: The patient has no complaints of any chest pain. No shortness of breath. No headaches. PHYSICAL EXAMINATION: VITAL SIGNS: Temperature is 98, pulse of 63, blood pressure is 121/59 and respirations are 20. GENERAL: The patient is lying in bed, flat, comfortable. HEENT: No oral lesion. Anicteric sclerae. Moist mucosa. NECK: No JVD, adenopathy, or thyromegaly. CARDIOVASCULAR: S1 and S2, regular. No murmurs, rubs, or gallops. LUNGS: Clear to auscultation bilaterally. No wheeze, rales, or rhonchi. ABDOMEN: Bowel sounds are positive, soft, nontender and nondistended. EXTREMITIES: No cyanosis, clubbing or edema. LABORATORY DATA: Have been reviewed. ASSESSMENT: 1. Right-sided pleural effusion, status post removal of 355 mL of fluid. 2. Sepsis. 3. Delirium, improved. 4. Hypoxia, improved. 5. Dementia, Alzheimer's type. 6. Low-grade bladder tumor. 7. Anemia. 8. Hypotension, resolved. 9. DNR/DNI. PLAN: The patient is currently comfortable. She is on doxycycline for antibiotics. She is on Eliquis for anticoagulation. The patient is on cefepime for antibiotics. She is on Pulmicort for breathing. She is on prednisone. She is on Xopenex. This will be continued. We will repeat blood work. Tommie Xavier MD
[2016-11-27 13:09] VITALS: PULSE 80
--- NOTE | 2016-11-27 13:43 | PN ---
PULMONARY PROGRESS NOTE DATE: 11/27/2016 ROOM: 563. SUBJECTIVE: The patient is feeling comfortable. She is status post thoracentesis by Dr. Leonel Trinh. The cell count has come back, the chemistries are not back as of yet. The cytology has not been evaluated as yet as well. Although, the patient is comfortable, we are still awaiting further diagnosis to make sure that the etiology of this fluid, this would be helpful in deciding whether or not the patient could be discharged to her correction or not. I have discussed this at length with her PMD, Dr. Xavier and once we have the remainder of the results, we can consider further treatment and discharge. PHYSICAL EXAMINATION: GENERAL: The patient is comfortable, in no acute respiratory distress. VITAL SIGNS: Stable. Blood pressure 110/70, oxygen saturation 97%, heart rate 80, and respiratory rate 16. HEENT: Normocephalic and atraumatic. NECK: Supple. No JVD. No lymphadenopathy. No bruits. CARDIAC: Regular rhythm, S1 and S2. Soft systolic ejection murmur at the lower left sternal border. There is no gallop. PULMONARY: Global decrease in breath sounds throughout. No rales, rhonchi, or wheezes appreciated. Old adventitious sounds have resolved. ABDOMEN: Soft. Bowel sounds normoactive without mass, guarding, or rebound. No organomegaly. EXTREMITIES: Reveal no clubbing, cyanosis, or edema. There is no Homans' sign. SKIN: Warm and dry without rash or excoriation. NEUROLOGIC: No focal findings. Mental status is fine. Motor, sensory, and coordination is normal. No additional abnormalities noted. LYMPHADENOPATHY: Cervical, axillary, and submandibular areas are clear. Supraclavicular notch is empty. No further lymphadenopathy is detected. LABORATORY DATA: Still awaiting the full workup of the pulmonary fluid that was extracted by Dr. Trinh. Followup x-ray is pending as well. CLINICAL IMPRESSION: 1. Status post right lower lobe pneumonia. 2. Large right pleural effusion. 3. Atelectasis. 4. Atrial fibrillation. 5. Underlying chronic obstructive pulmonary disease. PLAN: As discussed above, await results, followup x-ray ordered, and will follow up closely with you. Maurice Lind MD
--- NOTE | 2016-11-27 14:25 | CP.PCM.PN ---
Subjective - Date & Time of Evaluation Date of Evaluation: 11/27/16 Time of Evaluation: 11:00 - Subjective Subjective: Comfortable in bed, not in distress, eating well, less short of breath. Objective - Vital Signs/Intake and Output Vital Signs (last 24 hours): Temp Pulse Resp BP Pulse Ox 98.9 F 83 22 123/73 94 L 11/26/16 07:30 11/26/16 07:30 11/26/16 07:30 11/26/16 09:43 11/26/16 07:30 Intake and Output: 11/26/16 11/26/16 06:59 18:59 Intake Total 600 Balance 600 - Medications Medications: Current Medications Acetaminophen (Tylenol 325mg Tab) 650 mg PO Q4H PRN PRN Reason: Pain, moderate (4-7) Last Admin: 11/21/16 19:50 Dose: 650 mg Apixaban (Eliquis) 2.5 mg PO BID [facility] PRN Reason: Protocol Last Admin: 11/26/16 09:42 Dose: 2.5 mg Atenolol (Tenormin) 25 mg PO DAILY [facility] Last Admin: 11/26/16 09:39 Dose: 25 mg Budesonide (Pulmicort Respules) 0.5 mg IH [id number] [facility] Last Admin: 11/26/16 07:15 Dose: 0.5 mg Furosemide (Lasix) 40 mg PO BID [facility] Last Admin: 11/26/16 09:43 Dose: 40 mg Doxycycline Hyclate 100 mg/ (Sodium Chloride) 100 mls @ 100 mls/hr IVPB Q12 [facility] PRN Reason: Protocol Last Admin: 11/26/16 09:57 Dose: 100 mls/hr Cefepime HCl (Maxipime 1gm) 1 gm in 100 mls @ 100 mls/hr IVPB DAILY [facility] PRN Reason: Protocol Last Admin: 11/26/16 09:44 Dose: 100 mls/hr Insulin Human Regular (Humulin R Low) 0 units SC ACHS [facility] PRN Reason: Protocol Last Admin: 11/26/16 09:42 Dose: Not Given Levalbuterol HCl (Xopenex) 0.63 mg IH [id number] [facility] Last Admin: 11/26/16 07:15 Dose: 0.63 mg Levalbuterol HCl (Xopenex) 0.63 mg IH Q2 PRN PRN Reason: Shortness of Breath Last Admin: 11/24/16 20:43 Dose: 0.63 mg Lorazepam (Ativan) 0.5 mg PO TID [facility] PRN Reason: Protocol Last Admin: 11/26/16 09:42 Dose: 0.5 mg Methylprednisolone (Solu-Medrol) 20 mg IVP Q12 [facility] Last Admin: 11/26/16 09:45 Dose: 20 mg Nystatin (Nystop Topical Powder) 0 gm TOP BID [facility] Last Admin: 11/26/16 09:42 Dose: 1 applic Quetiapine Fumarate (Seroquel) 50 mg PO TID [facility] PRN Reason: Protocol Last Admin: 11/26/16 09:41 Dose: 50 mg Verapamil HCl (Calan Tab) 80 mg PO TID [facility] Last Admin: 11/26/16 09:38 Dose: 80 mg Zaleplon (Sonata) 5 mg PO HS PRN PRN Reason: Insomnia Last Admin: 11/25/16 21:22 Dose: 5 mg - Labs Labs: 11/26/16 06:40 11/26/16 06:40 PT 11.6 Seconds (9.9-11.8) 11/18/16 12:15 INR 1.07 (0.93-1.08) 11/18/16 12:15 APTT 29.6 Seconds (23.7-30.8) 11/18/16 12:15 - Constitutional Appears: Non-toxic, No Acute Distress - Head Exam Head Exam: NORMAL INSPECTION - ENT Exam ENT Exam: Mucous Membranes Moist - Neck Exam Neck Exam: absent: Lymphadenopathy, Meningismus - Respiratory Exam Respiratory Exam: Decreased Breath Sounds - Cardiovascular Exam Cardiovascular Exam: +S1, +S2 - GI/Abdominal Exam GI & Abdominal Exam: Soft. absent: Tenderness Assessment and Plan - Assessment and Plan (Free Text) Plan: Assessment systemic inflammatory response syndrome, consider healthcare-associated pneumonia on the right, in this patient with probable acute bronchitis, clinically improving S/P thoracentesis of right sided pleural effusion history of acute diverticulitis and C. diff. colitis history of C.diff. colitis history of E. faecalis bacteremia probably urine as the source HTN dyslipidemia S/P cerebrovascular accident chronic atrial fibrillation COPD CHF Plan on Cefepime and Doxycycline day 7; blood cx are negative; PCT is only 0.13; Pleural fluid cx are negative; target 4-7 days of antibiotics - can d/c antibiotics by later today
--- NOTE | 2016-11-27 17:02 | PN ---
DATE: 11/27/2016 REASON FOR CONSULTATION: Paroxysmal atrial fibrillation now converted to normal sinus, COPD exacerbation, CHF, acute on chronic LV systolic dysfunction. SUBJECTIVE: Denies any chest pain, shortness of breath or any palpitation. OBJECTIVE: GENERAL: Lying comfortable on the bed, flat on bed. VITAL SIGNS: Temperature afebrile, heart rate 80, blood pressure 115/63. HEENT: PERRLA. Extraocular muscles are intact. NECK: Supple. No carotid bruits or thyromegaly. CHEST: Clear to auscultation. HEART: S1 and S2, regular. ABDOMEN: Soft. EXTREMITIES: Clubbing and cyanosis negative. LABORATORY DATA: Blood workup as follows: WBC 11.3, hemoglobin 8.5, hematocrit 28.3, platelet count 310. Chemistry shows sodium 138, potassium 4.5, chloride 98, carbon dioxide 28, anion gap of 17, creatinine 1.2. Total protein 5.3, albumin 3.1. IMPRESSION: This is an 86-year-old female with past medical history of significant for paroxysmal atrial fibrillation, admitted with acute exacerbation of chronic obstructive pulmonary disease, urinary tract infection, elevated WBC, chronic obstructive pulmonary disease exacerbation and decompensated congestive heart failure secondary to acute and chronic LV systolic dysfunction, history of cardiomyopathy with ejection fraction of 25%. Last stress test on 09/18/2014 shows significant irreversible ischemia, mitral regurgitation and tricuspid regurgitation. RECOMMENDATIONS: Continue verapamil, continue Eliquis for history of paroxysmal atrial fibrillation, although the patient converted to normal sinus. Continue Xopenex. Try to avoid DuoNeb nebulizer treatment because the patient is going to atrial fibrillation with rapid ventricular rate. Monitor electrolytes supplement as needed. Yesterday, the patient underwent thoracentesis and ultrasound guided 350 mL of clear straw fluid was drained from the right of the chest. Followup chest x-ray shows no pneumothorax, decreased right pleural effusion. Continue verapamil and continue Lasix. Repeat the lab in the morning. Amari Lan MD
[2016-11-28 17:58] LABS: LDH PLEURAL FLUID 41 U/L; TOTAL PROTEIN PLEURAL FLUID <3.0 g/dL
== END 2016-11-27 16:33 | DRG 190 ==
LOC: ED 11:43 → ERH 14:06 → 2RNO 17:00 → OBSVTOIN 11-19 11:29 → 5RNO 11-23 16:53
PROVIDERS: ADMIT Internal Medicine Nephrology; ATTEND Internal Medicine Nephrology
PROC: BB4BZZZ Ultrasonography of Pleura (ICD-10-PCS; 2016-11-26)
PROC: 0W993ZZ Drainage of Right Pleural Cavity, Percutaneous Approach (ICD-10-PCS; principal; 2016-11-26 17:15)
DX: J44.0 Chronic obstructive pulmonary disease with (acute) lower respiratory infection (principal); A41.9 Sepsis, unspecified organism; I50.23 Acute on chronic systolic (congestive) heart failure; J18.9 Pneumonia, unspecified organism; J90 Pleural effusion, not elsewhere classified; I95.9 Hypotension, unspecified; E87.2 Acidosis; I24.9 Acute ischemic heart disease, unspecified; I42.9 Cardiomyopathy, unspecified; J98.11 Atelectasis; I11.0 Hypertensive heart disease with heart failure; J44.1 Chronic obstructive pulmonary disease with (acute) exacerbation; G30.9 Alzheimer's disease, unspecified; F02.80 Dementia in other diseases classified elsewhere, unspecified severity, without behavioral disturbance, psychotic disturbance, mood disturbance, and anxiety; E87.5 Hyperkalemia; I48.0 Paroxysmal atrial fibrillation; I48.2 Chronic atrial fibrillation; D64.9 Anemia, unspecified; D49.4 Neoplasm of unspecified behavior of bladder; R09.02 Hypoxemia; J20.9 Acute bronchitis, unspecified; E11.9 Type 2 diabetes mellitus without complications; E78.5 Hyperlipidemia, unspecified; Y95 Nosocomial condition; Z66 Do not resuscitate; Z79.01 Long term (current) use of anticoagulants; Z79.899 Other long term (current) drug therapy; Z86.19 Personal history of other infectious and parasitic diseases; Z86.73 Personal history of transient ischemic attack (TIA), and cerebral infarction without residual deficits; Z87.440 Personal history of urinary (tract) infections; Z87.891 Personal history of nicotine dependence; Z96.641 Presence of right artificial hip joint; H26.9 Unspecified cataract; I86.8 Varicose veins of other specified sites; S80.02XA Contusion of left knee, initial encounter; S80.01XA Contusion of right knee, initial encounter; R31.9 Hematuria, unspecified; R32 Unspecified urinary incontinence; R40.2412 Glasgow coma scale score 13-15, at arrival to emergency department; R41.0 Disorientation, unspecified; E87.6 Hypokalemia; I08.3 Combined rheumatic disorders of mitral, aortic and tricuspid valves; I27.2 Other secondary pulmonary hypertension; Z87.19 Personal history of other diseases of the digestive system